=== PATIENT | female | born 1955 | race Caucasian/White ===

== ENCOUNTER 2023-09-22 12:29 | Inpatient (IN) ==
--- NOTE | 2023-09-22 13:11 | Emergency Department Note ---
Impression & Plan Localized swelling of both lower legs, Acute deep vein thrombosis (DVT) of femoral vein of left lower extremity, Hypomagnesemia ED Provider Note Name: BLANCA POOLE Age: 68 Sex: Female Arrives Via: Walk-In Informant: Patient and ED Provider: Pascual Mario MD Chief Complaint: Leg swelling Impression: As per impressions above Medical Decision Makin-year-old female arrives for evaluation of bilateral leg swelling. Patient recently with bilateral hip repair at [facility] having gotten out of rehab 2 weeks ago. Worsening swelling in legs to the point where she is now unable to ambulate. Swelling is getting the point where it is pulling at wound on the right hip. There is no evidence of open wound or infection at this time. She has a history of PE this ultrasound bilateral legs were obtained which do show a superficial femoral extending to the common femoral DVT on the left. This would not explain the swelling of both legs at this point though. Mild BNP elevation there may be an underlying congestive failure aspect. She was started on Lasix recently without any improvement though. Patient's mag is a bit on the low side which will be repleted. She has a moderate cough at times but no significant shortness of breath and chest x-ray is unremarkable without clear evidence of pulmonary edema. Will hold off on Lasix until evaluated by hospitalist. Hospitalist was consulted and we discussed the plan for them to further discuss whether IV heparin would be indicated, possible CT angiography of the chest, other approach. Patient and are comfortable with this plan. Triage/Nursing Notes reviewed by Me External Chart Review by me: 4 patient history I did review the note from oncology on August 16, 2023. Differential:DVT, musculoskeletal, infection, joint effusion, trauma, lymphedema, idiopathic, CHF, as well as other pathologies. Vital Signs: reviewed and remarkable for no significant abnormalities Interventions: magnesium 1 gm iv Labs:ED labs Reviewed by me and remarkable for hypomagnesemia Imagin view chest x-ray as per my interpretation no infiltrate effusion appreciated. Ultrasound bilateral lower legs as per radiologist reveals a left superficial to common femoral DVT Cardiac/Tele Monitoring: Cardiac Monitoring: An Order was placed for continuous cardiac monitoring. The monitor shows a rate of 74 with a normal sinus rhythm. Consults:Dr Moses Saul hospitalist Plan: Disposition:Hospitalization. Condition: Good History of Present Illness: 68-year-old female arrives for evaluation of leg swelling. Patient with bilateral hip replacement at [facility] in August. She was released from [facility] on September 06. Since then she has had rapid worsening of swelling in bilateral legs. No specific weight gain. Her legs have swollen to the point where she is no longer able to ambulate. When she was discharged from [facility] she was actually able to ambulate relatively well. With worsening swelling the sutures especially on the right hip have started to pull apart. Patient denies any chest pain, shortness of breath, fevers, chills, abdominal pain, nausea, vomiting. Denies any change in urine output until she had been started on Lasix few days ago. The Lasix have not improved the leg swelling. Denies any falls, trauma, injuries. Patient does have a history of PE about 12 years ago. She is no longer on any anticoagulation other than aspirin. Patient has a history of breast cancer status posttreatment and is on suppressive therapy. Past Medical History:See Below Home Medications:See Below Allergies:See Below Vitals:Blood Pressure: 127/69, Pulse 85, RR 20, T 36.8C, O2 98% on RA Physical Exam: GENERAL: Patient is tired/pale appearing and in minimal distress. RESPIRATORY: No dyspnea. Clear to auscultation and equal bilaterally. CARDIOVASCULAR: Regular rate and rhythm.No murmur appreciated. GASTROINTESTINAL: Abdomen soft, non-tender, no peritonitis. EXTREMITIES: Relatively tense pitting edema bilateral lower legs with mild erythema the medial thighs extending onto bilateral calves. Good distal pulses. The incision site on the left hip is dressed. The incision on the right is dressed with gauze which was removed. Wound is starting to separate despite olinda over the top third of the incision. No active drainage or significant surrounding erythema. NEUROLOGIC: Alert and oriented. No focal neurologic deficits appreciated SKIN: No rash, no jaundice, no diaphoresis. PSYCH: Appropriate GCS: 15 ED Course: Times/Reassessments: Patient stable mild cough periodically. Agreeable to hospitalization and further workup Pascual Mario MD Past Med/Surg History Problem List (Updated 08/24/20 @ 09:22 by Janice Morgan RN) Hypomagnesemia (Acute) Acute deep vein thrombosis (DVT) of femoral vein of left lower extremity (Acute) Localized swelling of both lower legs (Acute) Malignant neoplasm of upper-outer quadrant of right breast in female, estrogen receptor positive (Chronic 06/30/20) History of surgery Reexcision for positive margin of right breast;SLN biopsy also done 07/21/20 History of surgery Excisional right breast biopsy on 06/30/20 Medical History (Updated 09/22/23 @ 15:12 by Pascual Mario MD) TMJ (dislocation of temporomandibular joint) Arthritis Pulmonary emboli Hypertension Microscopic colitis Diabetes Migraines Dyslipidemia Surgical History (Updated 08/24/20 @ 09:22 by Janice Morgan, RN) History of cataract surgery Bilateral Hx of colonoscopy Family History (Updated 08/24/20 @ 09:26 by Janice Morgan, RN) Mother , 93yo Breast cancer Father , 69yo Lung cancer Dyslipidemia Hypertension Sister No problems noted. Sister Stroke Son No problems noted. Daughter No problems noted. Social History (Updated 08/24/20 @ 09:28 by Janice Morgan RN) Smoking Status: Never smoker Second Hand Exposure: No; Hx Alcohol Use: No Hx Substance Use: No Preferred Language: Serbian Communication Ability: Effective Visual Impairment: No Limitations Hearing Ability: Hard of Hearing Plastic Tubing Insulation Supervisor Required: No Beliefs That Will Affect Care: None marital status: Current Living Situation: Spouse current occupational status: retired current occupation: From [employer] Feels Safe at Home: Yes Diet: regular caffeine: No during the past year weight has: remained stable Assistive Devices: Cane Allergies Allergies Allergy/AdvReac Type Severity Reaction Status Date / Time dichloralphenazone AdvReac RASH Verified 08/16/23 13:29 isometheptene AdvReac RASH Verified 08/16/23 13:29 Home Meds Home Medications Medication Instructions Recorded Confirmed AMITRIPTYLINE HCL (ELAVIL) 75 mg PO HS #0 tabs 01/05/12 08/16/23 BENAZEPRIL HCL (LOTENSIN) 40 mg PO DAILY #0 tabs 01/05/12 08/16/23 CYCLOBENZAPRINE HCL (FLEXERIL) 10 mg PO TID PRN #0 tabs 01/05/12 08/16/23 NADOLOL (CORGARD) 20 mg PO DAILY #0 tabs 01/05/12 08/16/23 Ocuvite Preservision 1 tab PO BID #0 tabs 01/05/12 08/16/23 SUMATRIPTAN SUCCINATE (IMITREX) 100 mg PO PRN #0 tabs 01/05/12 08/16/23 Triamcinolone Acet 0.1% 1 applic topical BID PRN Rash ##0 01/05/12 08/16/23 (Aristocort 0.1%) ATORVASTATIN (LIPITOR) 80 mg PO DAILY #0 tabs 10/31/12 08/16/23 CHOLECALCIFEROL (Vitamin D) 1,000 inter.unit PO BID #0 tabs 10/31/12 08/16/23 RIBOFLAVIN (VITAMIN B-2) 200 mg PO DAILY ##0 10/31/12 08/16/23 METFORMIN HCL (GLUCOPHAGE) 1,000 mg PO DAILY #0 tabs 08/24/20 08/16/23 calcium carbonate 600 mg-vitamin 1 tab PO DAILY 08/24/20 08/16/23 D3 10 mcg (400 unit) tablet (Calcium with Vitamin D) indapamide 1.25 mg tablet 1.25 mg PO QAM 08/24/20 08/16/23 mecobalamin (vitamin B12) 1,000 1,000 mcg sublingual DAILY 08/24/20 08/16/23 mcg disintegrating tablet,sublingual letrozole 2.5 mg tablet 2.5 mg PO DAILY 02/11/21 08/16/23 aspirin 81 mg tablet,delayed 81 mg PO DAILY 08/16/23 08/16/23 release tramadol 50 mg tablet 50 mg PO BID PRN 08/16/23 08/16/23 Results & Data (ED) Vital Signs Vital Signs - 24 hr 09/22/23 12:40 09/22/23 12:58 Temperature 36.8 C Temperature Source Skin Pulse Rate 83 85 Respiratory Rate 20 Respiratory Effort / Characteristics Non-Labored Spontaneous Respiratory Depth Normal Respiratory Pattern Regular Blood Pressure 127/69 Blood Pressure Mean 88 Pulse Oximetry 98 Oxygen Delivery Method Room Air Sepsis Recent Fever Within 48 Hours No Sepsis New/Unexplained Change in Mental Status N/A Sepsis Action Taken by Nursing No Action Required Laboratory Data 09/22/23 12:57 09/22/23 13:16 Lab Results 09/22/23 09/22/23 Range/Units 12:57 13:16 WBC 10.77 (4.8-10.8) K/ul RBC 3.47 L (4.20-5.40) M/uL Hgb 9.8 L (12.0-16.0) g/dl Hct 32.5 L (37.0-47.0) % MCV 93.7 (80.0-100.0) fL MCH 28.2 (25.0-34.0) pg MCHC 30.2 L (32.0-36.0) g/dL RDW Std Deviation 56.5 H (36.4-46.3) fL RDW Coeff of Chely 17.0 H (11.5-14.5) % Plt Count 487 H (130-400) K/uL MPV 9.4 (9.4-12.4) fL Immature Gran % (Auto) 0.6 % Neut % (Auto) 67.6 % Lymph % (Auto) 18.9 % Gates % (Auto) 9.4 % Eos % (Auto) 3.2 % Baso % (Auto) 0.3 % Neut # (Auto) 7.28 H (1.40-6.50) K/uL Lymph # (Auto) 2.04 (1.20-3.40) K/uL Gates # (Auto) 1.01 H (0.11-0.59) K/uL Eos # (Auto) 0.35 (0.00-0.50) K/uL Baso # (Auto) 0.03 (0.00-0.20) K/uL Immature Gran # (Auto) 0.06 (0.01-0.20) K/uL Sodium 138 (136-145) mmol/L Potassium 3.9 (3.5-5.1) mmol/L Chloride 105 (98-107) mmol/L Carbon Dioxide 26 (21-32) mmol/L Anion Gap 7 (3-11) BUN 23 (6-23) mg/dl Creatinine 1.04 (0.6-1.2) mg/dl Est Cr Clr Drug Dosing 50.6 ml/min Est GFR ( Amer) 63.5 ml/min Est GFR (Non-Af Amer) 54.8 ml/min BUN/Creatinine Ratio 22.1 H (10-20) Glucose 74 (70-99(Fasting)) mg/dl Calcium 8.7 (8.6-10.3) mg/dl Magnesium 1.4 L (1.7-2.4) mg/dl Total Bilirubin 0.5 (0.2-1.0) mg/dl Direct Bilirubin 0.1 (0-0.2) mg/dl AST 21 (13-39) U/L ALT 14 (7-52) U/L Alkaline Phosphatase 186 H (34-104) U/L Troponin I High Sens 3.4 (0-14) pg/ml B-Natriuretic Peptide 235 H (0-100) pg/ml Total Protein 7.1 (6.0-8.3) gm/dl Albumin 2.9 L (3.4-5.0) gm/dl Administered Medications Magnesium Sulfate/Dextrose (Magnesium Sulfate / D5w) 1 gm in 100 mls @ 100 mls/hr IV NOW STA Stop: 09/22/23 15:34 Last Admin: 09/22/23 14:47 Dose: 100 mls/hr Documented By: LUIS Imaging Data Radiologist's Impression: Venous Doppler Study 09/22/23 13:06 ULTRASOUND BILATERAL LOWER EXTREMITY VENOUS CLINICAL HISTORY: Lower extremity edema COMPARISON STUDY: Left lower extremity venous ultrasound dated 10/23/2005 TECHNIQUE: Real-time, grayscale, and color Doppler sonography of the deep veins of the right and left lower extremity was performed from the inguinal crease to the calf. Compression and augmentation were utilized. FINDINGS: Right lower extremity: There is no sonographic evidence of deep venous thrombosis in the right lower extremity. The common femoral, superficial femoral, and popliteal veins are patent and normally compressible. The greater saphenous vein and the profunda femoris vein at the junction with the common femoral vein are clear. The visualized calf veins are patent. Soft tissue edema is present in the right calf. Left lower extremity: There is occlusive deep superficial venous thrombus in the greater saphenous vein at the junction of the common femoral vein. This protrudes into the common femoral vein as deep venous thrombosis. The superficial femoral and popliteal veins are patent and normally compressible. The profunda femoris vein at the junction with the common femoral vein is clear. The visualized calf veins are patent. Soft tissue edema is present in the left calf. IMPRESSION: 1. There is occlusive superficial venous thrombus within the left greater saphenous vein at the junction with the common femoral vein. This extends into the common femoral vein as deep venous thrombosis. 2. No additional foci of deep venous thrombosis are seen in either leg. ACT 112: Negative or not required by law. Electronically signed by: Prosper Taylor M.D. 09/22/2023 2:25 PM Chest X-Ray 09/22/23 13:07 SINGLE VIEW CHEST CLINICAL HISTORY: Fluid overload FINDINGS: An AP, portable, upright chest radiograph is correlated with chest CT dated 01/05/2012. There is evidence of previous cardiac valve surgery. The cardiomediastinal silhouette is unremarkable noting atherosclerotic calcification of the thoracic aorta. The pulmonary vasculature is noncongested. Chronic interstitial thickening is similar to previous. There is bibasilar scarring/atelectasis. No airspace consolidation or pleural effusion is identified. No pneumothorax is seen. The skeletal structures are osteopenic. The bony thorax is grossly intact. Mild degenerative change is noted in the shoulders and spine. IMPRESSION: No active disease in the chest. ACT 112: Negative or not required by law. Electronically signed by: Prosper Taylor M.D. 09/22/2023 1:58 PM Discharge Plan Visit Data Chief Complaint: Swelling/Edema to Extremity Stated Complaint: SEVERE EDEMA, COUGH ED Provider: Pascual Mario Discharge Problem: Localized swelling of both lower legs, Acute deep vein thrombosis (DVT) of femoral vein of left lower extremity, Hypomagnesemia Forms Stand Alone Forms: [facility] [employer] Prescriptions Prescriptions: No Action indapamide 1.25 mg tablet 1.25 mg PO QAM mecobalamin (vitamin B12) 1,000 mcg tablet,disintegrating 1,000 mcg sublingual DAILY Rx Instructions: place tablet under tongue and allow to dissolve for at least30 secs before swallowing calcium carbonate-vitamin D3 [Calcium with Vitamin D] 600 mg(1,500mg) -400 unit tablet 1 tab PO DAILY letrozole 2.5 mg tablet 2.5 mg PO DAILY aspirin 81 mg tablet,delayed release (DR/EC) 81 mg PO DAILY tramadol 50 mg tablet 50 mg PO BID PRN AMITRIPTYLINE HCL (ELAVIL) 75 MG tablet 75 mg PO HS Qty: 0 BENAZEPRIL HCL (LOTENSIN) 40 MG tablet 40 mg PO DAILY Qty: 0 CYCLOBENZAPRINE HCL (FLEXERIL) 10 MG tablet 10 mg PO TID PRN Qty: 0 Patient Comments: PRN NADOLOL (CORGARD) 20 MG tablet 20 mg PO DAILY Qty: 0 Ocuvite Preservision 1 TAB tablet 1 tab PO BID Qty: 0 SUMATRIPTAN SUCCINATE (IMITREX) 100 MG tablet 100 mg PO PRN Qty: 0 Triamcinolone Acet 0.1% (Aristocort 0.1%) cream 1 applic Topical BID PRN (Reason: Rash) Qty: 0 ATORVASTATIN (LIPITOR) 80 MG tablet 80 mg PO DAILY Qty: 0 CHOLECALCIFEROL (Vitamin D) 1,000 INTER.UNIT tablet 1,000 inter.unit PO BID Qty: 0 RIBOFLAVIN (VITAMIN B-2) 100 MG tablet 200 mg PO DAILY Qty: 0 METFORMIN HCL (GLUCOPHAGE) 500 MG tablet 1,000 mg PO DAILY Qty: 0 Referrals Referrals: Deon Dougherty MD [Primary Care Provider] -
--- OUTSIDE RECORDS SUMMARY | 2023-09-22 13:21 | External Medical Summary | Summary of Care ---
Author Name Unknown Organization [facility] Address [address] [place] [address] Phone [phone] Care Team Providers Care Learning Center Instructor Name Role Phone Farhat MEEHAN MD, Deon Cerna Primary Care Provider [phone] Reason for Visit * Reason Comments Outpatient Testing Encounter Details Date Type Department Care Team (Late st Contact Info) Description 09/17/2023 4:20 PM EDT Laboratory Laboratory [facility] [address] [place] [id number] [facility] [address] [facility] [place] [address] Shock (HCC); Bilateral lower extremity edema; Acute cough Allergies Active Allergy Reactions Criticality Noted Date Comments Dichloralphenazone 08/15/2022 Other Reaction(s): RASH Isometheptene 08/15/2022 Other Reaction(s): RASH Midrin 07/21/1999 Red and ictchy in the face documented as of this encounter (statuses as of 09/17/2023) Medications Medication Sig Dispensed Refills Start Date End Date Status OCUVITE-LUTEIN PO CAPS Take by mouth. Active RIBOFLAVIN (VITAMIN B-2) 100 MG Tablet Take 2 Tablets by mouth in the morning and 2 Tablets before bedtime. Active triamcinolone acetonide (ARISTOCORT) 0.1 % creamIndications: Other psoriasis APPLY TWICE DAILY DIRECTED 30 g 5 07/02/2018 Active Additional Information Patient not taking.Reported on 09/10/2023 Letrozole 2.5 MG Oral Tablet (Femara)Indicatio ns:Breast carcinoma, female, right (HCC) Take 1 Tablet by mouth in the morning. 90 Tablet 3 09/25/2022 Active Amitriptyline HCl 75 MG Oral Tablet (Elavil) TAKE ONE TABLET BY MOUTH AT BEDTIME 90 Tablet 1 04/16/2023 04/15/2024 Active Amoxicillin 500 MG Oral Capsule (Amoxil) Take 4 capsules 1 hour prior to any dental work 4 Capsule 4 06/11/2023 Active Calmoseptine 0.44-20.6 % External Ointment (Menthol-Zinc Oxide) Apply topically to affected area every 6 hours as needed for Wound Care. Apply to pressure sore on buttock. 113 g 5 07/02/2023 Active Cyclobenzaprine HCl 10 MG Oral Tablet (Flexeril)Indicat ions:Migraine variant TAKE ONE TABLET BY MOUTH THREE TIMES A DAY -- IN THE MORNING , NOON, AND AT BEDTIME 270 Tablet 1 07/06/2023 07/05/2024 Active Atorvastatin Calcium 80 MG Oral Tablet (Lipitor)Indicati ons:Dyslipidemia, goal to be determined Take 1 Tablet by mouth at bedtime. 90 Tablet 3 07/09/2023 Active Nadolol 20 MG Oral Tablet (Corgard)Indicati ons:Migraine variant Take 1 Tablet by mouth at bedtime. 90 Tablet 3 07/09/2023 Active Diclofenac Sodium 1 % External Gel (Voltaren) Apply topically to affected area 4 times a day. Apply to areas outside both hips/troch bursitis 350 g 6 08/08/2023 Active Additional Information Patient not taking.Reported on 09/14/2023 oxyCODONE HCl 5 MG Oral Tablet (Oxy IR) Take 1 Tablet by mouth every 4 hours as needed for Pain, Moderate or Pain, Severe. 30 Tablet 08/17/2023 Active Acetaminophen 500 MG Oral Tablet (Tylenol) Take 2 Tablets by mouth every 8 hours as needed for Pain, Mild, Pain, Moderate or Pain, Severe. DO NOT EXCEED 6 TABS IN 24 HOURS. 60 Tablet 1 08/17/2023 Active Senna 8.6 MG Oral Capsule Take 1 Capsule by mouth in the morning. While taking narcotics. 30 Capsule 08/17/2023 Active Doxycycline Hyclate 100 MG Oral Capsule Take 1 Capsule by mouth in the morning and 1 Capsule before bedtime. 84 Capsule 08/17/2023 Active Aspirin 81 MG Oral Tablet Delayed Release Take 1 Tablet by mouth in the morning and 1 Tablet before bedtime. 168 Tablet 08/17/2023 Active metFORMIN HCl ER (MOD) 1000 MG Oral Tablet Extended Release 24 HourIndications:A bnormal blood chemistry Take 1 Tablet by mouth 2 times a day with morning and evening meals. Take with food 60 Tablet 11 08/26/2023 Active Vitamin B-12 1000 MCG Oral Tablet (Cyanocobalamin) Take 1 Tablet by mouth in the morning. 30 Tablet 2 08/26/2023 Active Famotidine 20 MG Oral Tablet (Pepcid) Take 1 Tablet by mouth in the morning. 30 Tablet 2 08/26/2023 Active Fluconazole 100 MG Oral Tablet (Diflucan) Take 1 Tablet by mouth in the morning for 21 days. two tablets on first day, then one tablet once a day for 3 weeks.. 22 Tablet 09/14/2023 10/05/2023 Active Miconazole Nitrate 2 % External Cream (Monistat Derm) Apply to Right groin(do not place on surgical wound) daily after cleansing with soap and water 28.35 g 3 09/14/2023 Active documented as of this encounter (statuses as of 09/17/2023) Active Problems Problem Noted Date Diagnosed Date Status post bilateral hip replacements Degenerative joint disease (DJD) of hip 08/17/19 Migraine variant 06/14/2023 Atherosclerosis of [place] co ronary artery without angina pectoris 06/14/2023 Atrioventricular (AV) dissociation 06/06/2023 Conduction disorder of the heart 06/06/2023 RBBB (right bundle branch block) 06/06/2023 S/P TAVR (transcatheter aortic valve replacement ) 06/05/2023 History of breast cancer 11/08/2022 Type 2 diabetes mellitus with diabetic polyneuro lesley 04/15/2021 Hypertensive kidney disease with stage 3a chronic kidney disease 10/13/2020 Diabetes mellitus without complication Other psoriasis 04/14/2020 Elevated homocysteine 07/24/2018 History of pulmonary embolism 01/17/2016 Deviated nasal septum 07/26/2011 Chronic cough 10/18/2009 Overview: chronic - since 10/2008 ALLERGIC RHINITIS - MIXED TYPE 10/18/2009 Overview: positive grass pollen Obesity, morbid (more than 1 00 lbs over ideal weight or BMI > 40) 06/08/2009 Overview: Per Obesity Taxonomy ICD-10 update of inactive term Dyslipidemia, goal LDL below 130 02/18/2009 Overview: Per Lipid Taxonomy. ADVANCE DIRECTIVE INFORMATION 09/02/2004 Overview: No, Advance Directive brochure given to patient at prior appointment. HTN, goal below 140/90 12/04/2001 documented as of this encounter (statuses as of 09/17/2023) Resolved Problems Problem Noted Date Diagnosed Date Resolved Date Hypotension due to hypovolemia 08/18/2023 08/24/2023 Acute blood loss anemia 08/17/202308/10 Shock 08/17/2023 08/24/2023 Metabolic acidosis 08/17/2023 Primary osteoarthritis of both hips 08/08/2023 08/25/2023 Migraine variant 04/15/2021 05/11/2023 Migraine without aura, intractable 10/13/2020 10/13/2020 Chronic kidney disease, stage 3a 04/19/2020 08/25/2023 Overview: Per CKD protocol Homocystinuria 04/14/2020 01/17/2023 Prediabetes 08/19/2018 10/13/2020 Overview: Per Prediabetes protocol Severe aortic stenosis 08/08/201706/06 Pulmonary embolism 01/07/2012 6 Recurrent epistaxis 07/26/2011 10/28/19 23 Snoring 07/26/2011 01/17/2017 Overview: ICD-10 update of inactive term Recurrent sinusitis 07/26/2011 01/18/20 17 Hyperplastic sinusitis 07/26/201101/17 Gastroesophageal reflux disease 07/25/2011 10/13/2020 OBESITY, UNSPECIFIED 10/21/2005 010 Overview: Per Obesity Taxonomy Mixed dyslipidemia 05/28/2000 9 Overview: Per Lipid Taxonomy. UNSPECIFIED GASTRITIS AND GA STRODUODENITIS WITHOUT MENTION OF HEMORRHAGE 01/17/2017 documented as of this encounter (statuses as of 09/17/2023) Immunizations Name Administration Dates Next Due COVID-19 mRNA, LNP-s, No Pre serve, 2-Dose Series (Pfizer) 01/25/2021,2020,05/25/2020 COVID-19, MRNA-LNP, 23-24, P F, 30 MCG/0.3 mL, 12 YRS AND ABOVE, IM (PFIZER-Comirnaty) 12/21/2022 Pneumococcal Conjugate Vacci ne, 20-valent (Cowdweu13) 10/13/2021 Pneumococcal Polysaccharide PPV23 (Pneumovax) 04/14/2020 RSV Vac., Bivalent, Perfusio n F, Pf,0.5 Ml (Abrysvo) 05/11/2023 Seasonal Influenza, PF, 6 M & above, IM , (FluLaval or Fluzone) 01/24/2019,01/17/2018,01/17/2017 Seasonal Influenza, Quadriva lent Hd (Fluzone Hd) 12/21/2022,02/28/2022,03/07/2021 Seasonal Influenza, Quadriva lent Hd, 65+ Yrs 12/18/2019 Seasonal Influenza, Quadriva lent, No Preserve, IM 01/14/2015 Seasonal Influenza, Split, I IV3, With Preserve, Inj 12/30/2013,12/30/2012,01/01/2012,05/01,01/21/2010,05/17/2009 TD, Preservative Free 01/17/2017 TDAP, Age 7 and older, IM (Adacel) 11/16/2006 Varicella Zoster Vaccine (Adult) 07/20/2015 Zoster Vaccine Recombinant (Shingrix) 10/22/2017 ,07/17/2017 documented as of this encounter Social History Tobacco Use Types Packs/Day Years Used Date Smoking Tobacco: Never Smokeless Tobacco: Never Comments:no passive smoke Alcohol Use Standard Drinks/Week Comments No 0 (1 standard drink = 0.6 oz pur e alcohol) PHQ-2 Answer Date Recorded PHQ Adult Total Score 0 06/08/2023 Hunger Vital Sign Answer Date Recorded Within the past 12 months, y ou worried that your food would run out before you got the money to buy more. Never true 06/26/19 24 Within the past 12 months, t he food you bought just didn't last and you didn't have money to get more. Never true 06/26/2023 Childcare Answer Date Recorded Do you feel overwhelmed with taking care of a child, family member or friend? No 06/26/2023 Does your family need help f inding childcare? (Household - for ages 0-17 years) Not on file 06/26/2023 Clothing Answer Date Recorded Have you been unable to get clothing when it was really needed? No 06/26/2023 Is your family able to get c lothes or diapers when needed? (Household - for ages 0-17 years) Not on file 06/26/2023 Personal Safety Answer Date Recorded Do you feel unsafe or have concerns for your saf ety? No 08/17/2023 Do you have concerns for you r family's safety? (Household - for ages 0-17 years) Not on file 08/17/2023 Utilities Answer Date Recorded Do you have trouble paying y our heating, water, or electric bill? No 08/17/2023 Is your family able to pay t he heat, water, or electric bill? (Household - for ages 0-17 years) Not on file 08/17/2023 Does your family have access to good internet? (Household - for ages 0-17 years) Not on file 08/17/2023 Employment Status Answer Date Recorded Are you unemployed or without regular income? No 06/26/2023 Does the household have a re gular source of income? (Household - for ages 0-17 years) Not on file 06/26/2023 Social Connections Answer Date Recorded How often do you feel lonely or isolated from th ose around you? Never 06/26/2023 Financial Resource Strain Answer Date R ecorded Do you have any trouble payi ng for your medications, or do you think you might in the future? No 06/26/2023 Does your family have troubl e paying for medicine? (Household - for ages 0-17 years) Not on file 06/26/2023 Transportation Needs Answer Date Record ed READ ONLY Do you have troubl e getting a ride to medical visits or work? Never True 08/17/2023 Does your family have a hard time getting a ride to doctors visits? (Household - for ages 0-17 years) Not on file 08/17/2023 Has lack of transportation k ept you from medical appointments, meetings, work, or from getting things needed for daily living? Check all that apply. (Adult - for ages 18 years and over) Not on file 08/17/2023 Do you (or your family) have trouble finding or paying for a ride (transportation)? (Household - for ages 0-17 years) Not on file 08/17/2023 Housing Stability Answer Date Recorded Do you currently live in a s helter or have no steady place to sleep at night? No 08/17/2023 READ ONLY Do you think you a re at risk of becoming homeless? No 08/17/2023 Does your family worry about paying for your home or becoming homeless? (Household - for ages 0-17 years) Not on file 0 08/17/2023 Are you homeless or worried that you might be in the future? (Adult - for ages 18 years and over) Not on file Are you (or your family) nakia eless or worried that you might be in the future? (Household - for ages 0-17 years) Not on file Food Insecurity Answer Date Recorded Do you need food for this week? No 08/17/2023 Are you able to get enough f ood for your family? (Household - for ages 0-17 years) Not on file 08/17/2023 Does your family need food t his week? (Household - for ages 0-17 years) Not on file 08/17/2023 Do you always have enough fo od for your family? (Household - for ages 0-17 years) Not on file 08/17/2023 Sex and Gender Information Value Date Recorded Sex Assigned at Female 07/24/2018 9:10 AM EDT Gender Identity Female 07/24/2018 9:10 AM EDT Sexual Orientation Straight 07/24/2018 9: 10 AM EDT Job Start Date Occupation Industry Not on file Not on file Not on file documented as of this encounter Functional Status Functional Status Response Date of Assess ment Are you deaf or do you have serious difficulty h earing? No 08/17/2023 Are you blind or do you have serious difficulty seeing, even when wearing glasses? No 08/17/2023 Do you have serious difficul ty walking or climbing stairs? (5 years old or older) Yes 08/17/2023 Do you have difficulty dress ing or bathing? (5 years old or older) Yes 08/17/2023 Because of a physical, menta l, or emotional condition, do you have difficulty doing errands alone such as visiting a doctor s office or shopping? (15 years old or older) Yes 08/17/19 Cognitive Status Response Date of Assessm ent Because of a physical, menta l, or emotional condition, do you have serious difficulty concentrating, remembering, or making decisions? (5 years old or older) No 08/17/2023 documented as of this encounter Plan of Treatment Upcoming Encounters Date Type Department Care Team (Late st Contact Info) Description 09/27/2023 8:30 AM EDT Home Visit Kg at [facility] [address] [address] Megan Mata RN [address] [address] 10/03/2023 12:00 PM EDT Office Visit Orthopaedics, [place] [address] [place] [address] Junior Chavez PA-C [address] [place] [address] 11/08/2023 9:00 AM EDT Home Visit Kg at [facility] [address] [address] Tre Penny PA-C [address] [address] 11/14/2023 9:00 AM EDT Office Visit Family Practice [facility] [address] [place] [address] Deon Dougherty III, MD [address] [place] [address] 12/18/2023 8:30 AM EDT Office Visit Cardiology, [facility] [address] [facility] [place] [address] [place], DO [address] [place] [address] 03/20/2024 2:00 PM EST Laboratory Laboratory [facility] [address] [place] [id number] [place], Lab [facility] [address] [facility] [place] [address] 03/27/2024 2:00 PM EST Office Visit Hematology/Oncology [facility] [place] [address] [facility] [place] [phone] Lizbeth Madison CRNP [address] [place], [place] [address] [address] Pending Results Name Type Priority Associated Diagnoses Date /Time BASIC METABOLIC PANEL Lab Routine Shock (HCC) 09/17/2023 4:21 PM EDT BNP, NT-PRO Lab Routine Bilateral lower extremity edema 09/17/2023 4:21 PM EDT CBC WITH WBC DIFFERENTIAL Lab Routine Acute cough 09/17/2023 4:21 PM EDT CBC Lab Routine Acute cough 09/17/2023 4:21 PM EDT DIFFERENTIAL, AUTOMATED Lab Routine Acute cough 09/17/2023 4:21 PM EDT Health Maintenance Due Date Last Done Comments Cologuard 06/16/1999 Fecal Occult Blood Test 06/16/1999 Sigmoidoscopy 06/16/1999 COVID-19 Vaccine ( season) 2023 12/21/2022, 01/25/2021, 2020, Additional history exists Diabetic Eye Exam 07/11/2023 07/10/2022, , 07/10/2022, Additional history exists Influenza Vaccine (FLU shot) (#1) 2023 12/21/2022, 02/28/2022, 03/07/2021, Additional history exists HbA1c 02/08/2024 08/08/2023, 0303/2023, 11/08/2022, Additional history exists GFR 03/12/2024 09/10/2023, 08/11, 08/27/2023, Additional history exists Mammogram 04/23/2024 04/23/2023, 04/12, 04/19/2022, Additional history exists Albumin/Creatinine Ratio 05/10/2024 024, 04/17/2022, 04/15/2021, Additional history exists Diabetic Foot Exam 05/10/2024 05/11/2023, 0 04/17/2022, 04/15/2021 Depression Screening 06/07/2024 06/08/2023 CKD PHOS USE SMARTSET 20893 08/25/202408/10, 08/25/2023, 08/24/2023, Additional history exists CKD HGB USE SMARTSET 17914 09/09/202409/09, 09/10/2023, 09/03/2023, Additional history exists Colonoscopy 02/03/2025 02/03/2015, 01/11, 12/14/2006 Colorectal Cancer Screening 02/03/2025 DTaP,Tdap,and Td Vaccines (3 - Td or Tdap) 01/17/2027 01/17/2017, 11/16/2006 DXA Scan 08/14/2029 08/14/2022, 07/2022, 08/17/2020 Zoster Vaccines Completed 10/22/2017, 0 10/2017, 07/20/2015 Pneumococcal Vaccine: 65+ Years Completed 10/13/2021, 04/14/2020 HPV (Gardasil) Vaccine Aged Out No lo nger eligible based on patient's age to complete this topic Hepatitis B Vaccine Aged Out No longe r eligible based on patient's age to complete this topic MENINGOCOCCAL (MENACTRA/MENVEO) Aged Out No longer eligible based on patient's age to complete this topic documented as of this encounter Medical Devices Implanted Type Area An Employee Sponsor Or Advocate And Device Identifier Shelf Expiration Date Model / Serial / Lot Valve Transcath Resilia 23mm - [id number] Implanted:Qty: 1 on 06/05/2023 by Mat Lucia MD at [facility] [employer] [id number] 11/12/2023 [id number] / / Screw Bone 6.5x30mm - [id number] Implanted:Qty: 1 on 08/17/2023 by Chito Cochran MD at OR [facility] Right: Hip ALEYDA : ORTHOPAEDICS 05/22/2028 [id number] / / [id number] Screw Low Profile [id number] - [id number] Implanted:Qty: 1 on 08/17/2023 by Chito Cochran MD at OR [facility] Right: Hip ALEYDA : ORTH[employer] 03/31/2028 [id number] / / [id number] Implant Stem Hip Colr High 2 - [id number] Implanted:Qty: 1 on 08/17/2023 by Chito Cochran MD at OR [facility] Right: Hip AELYDA : ORTH[employer] 03/20/2027 [id number] / / [id number] Hip Hd Ricardo Rdz Md D 36 25 - [id number] Implanted:Qty: 1 on 08/17/2023 by Chito Cochran MD at OR [facility] Right: Hip ALEYDA : ORTH[employer] 03/19/2028 [id number] / / [id number] Hip Shell Trident X3 10 36x50 - [id number] Implanted:Qty: 1 on 08/17/2023 by Chito Cochran MD at OR [facility] Left: Hip ALEYDA : ORTH[employer] 07/10/2028 [id number] / / [id number] Implant Hip Acetab Shell 52e - [id number] Implanted:Qty: 1 on 08/17/2023 by Chito Cochran MD at OR [facility] Left: Hip ALEYDA : ORTHOPA[employer] 07/07/2028 709-04-52E / / [id number] 6.5mm Low Profile Hex Screw 6 - [id number] Implanted:Qty: 1 on 08/17/2023 by Chito Cochran MD at OR [facility] Left: Hip ALEYDA : ORTHOPAEDICS 04/24/2028 [id number] / / [id number] Screw Low Profile 6.7lzc40hi - [id number] Implanted:Qty: 1 on 08/17/2023 by Chito Cochran MD at OR [facility] Left: Hip ALEYDA : ORTHOPAEDICS 04/16/2028 [id number] / / [id number] Implant Stem Hip Colr High 1 - [id number] Implanted:Qty: 1 on 08/17/2023 by Chito Cochran MD at OR [facility] Left: Hip ALEYDA : ORTHOPAEDICS 12/13/2027 [id number] / / [id number] Hip Hd Ricardo Rdz Md D 36 25 - [id number] Implanted:Qty: 1 on 08/17/2023 by Chito Cochran MD at OR [facility] Left: Hip ALEYDA : ORTHOPAEDICS 01/30/2028 [id number] / / [id number] Hip Shell Trident X3 10 36x50 - [id number] Implanted:Qty: 1 on 08/17/2023 by Chito Cochran MD at OR [facility] Right: Hip ALEYDA : ORTHOPAEDICS 05/03/2028 763-10-36E / / [id number] Implant Hip Acetab Shell 52e - [id number] Implanted:Qty: 1 on 08/17/2023 by Chito Cochran MD at OR [facility] Right: Hip ALEYDA : ORTHOPAEDICS 06/21/2028 709-04-52E / / [id number] documented as of this encounter Visit Diagnoses Diagnosis Shock (HCC) Shock, unspecified Bilateral lower extremity edema Edema Acute cough documented in this encounter Advance Directives * Full Code (Latest Code Status on File) Date Activated Date Inactivated Comments 08/17/2023 7:01 PM 08/26/2023 2:23 PM This order re flects the patients wishes and were consensually agreed upon. Question Answer Comments Discussion of Advance Direct verna occurred with: Not Discussed due to patient's condition * Full Code Date Activated Date Inactivated Comments 06/05/2023 8:29 AM 06/07/2023 6:32 PM This order r eflects the patients wishes and were consensually agreed upon. Question Answer Comments Discussion of Advance Directives occurred with: Patient * Full Code Date Activated Date Inactivated Comments 01/05/2012 10:55 PM 01/09/2012 6:07 PM This orde r reflects the patients wishes and were consensually agreed upon. Question Answer Comments Discussion of Advance Directives occurred with: Patient Does the patient have a Living Will? No Does the patient have Health Care Power of Attor ludmila? No Care Teams Learning Center Instructor Relationship Specialty Start Date End Date Deon Dougherty III, MD [address] [facility] [place] [address] PCP - General 10/25/1995 documented as of this encounter
--- OUTSIDE RECORDS SUMMARY | 2023-09-22 13:21 | External Medical Summary | Summary of Care ---
Author Name Unknown Organization [facility] Address [address] [place] [address] Phone [phone] Care Team Providers Care Cloth Cutting Machine Operator Name Role Phone Farhat MEEHAN MD, Deon Cerna Primary Care Provider [phone] Reason for Visit * Reason Onset Date Comments Home Health 09/19/2023 Encounter Details Date Type Department Care Team (Late st Contact Info) Description 09/19/2023 Telephone Family Practice [facility] [address] [place] [address] Deon Dougherty III, MD [address] [place] [address] Home Health Allergies Active Allergy Reactions Criticality Noted Date Comments Dichloralphenazone 08/15/2022 Other Reaction(s): RASH Isometheptene 08/15/2022 Other Reaction(s): RASH Midrin 07/21/1999 Red and ictchy in the face documented as of this encounter (statuses as of 09/20/2023) Medications Medication Sig Dispensed Refills Start Date [...] and water 28.35 g 3 09/14/2023 Active Furosemide 20 MG Oral Tablet (Lasix) Take 1 Tablet by mouth in the morning. For 5 days. 5 Tablet 09/20/2023 Active documented as of this encounter (statuses as of 09/20/2023) Active Problems Problem Noted Date Diagnosed Date Status post bilateral hip replacements 4 Degenerative joint disease (DJD) of hip 08/17/19 Migraine variant 06/14/2023 Atherosclerosis of alutiiq co ronary artery without angina pectoris 06/14/2023 [...] as of this encounter (statuses as of 09/20/2023) Resolved Problems Problem Noted Date Diagnosed Date [...] as of this encounter (statuses as of 09/20/2023) Immunizations Name Administration Dates Next Due COVID-19 mRNA, LNP-s, No Pre serve, 2-Dose Series (Aphria) 01/25/2021,2020,05/25/2020 COVID-19, MRNA-LNP, 23-24, P F, 30 MCG/0.3 mL, 12 YRS AND ABOVE, IM (PFIZER-Comirnaty) 12/21/2022 Pneumococcal Conjugate Vacci ne, 20-valent (Oosnima22) 10/13/2021 Pneumococcal Polysaccharide PPV23 (Pneumovax) 04/14/2020 RSV [...] No 08/17/2023 documented as of this encounter Miscellaneous Notes * Telephone Encounter - Berna Mack MD - 09/20/2023 7:43 AM EDT Looks like she had a BNP a few days ago that was quite elevated. Sounds like it is worsening from when I saw her in the office. At that time attributed mild swelling to postop changes. Can she make appointment to be seen? I am going to send her Lasix 20mg to take for 5 days. * Telephone Encounter - Abraham Christensen DO - 09/19/2023 3:12 PM EDT Orders signed for wheelchair and hospital bed. Please alert Home health nuring and see where they should go. Megan: it looks like you've seen Elsa. I'm not sure if I just go with these changes or if lasix is appropriate at this point. Looking for any other thoughts? * Telephone Encounter - Marta Mc LPN - 09/19/2023 11:19 AM EDT Concerns Shan PT, Calling from: [facility] Report/Concerns of: swelling from hips down. 2 plus pitting edema. Since coming home. Symptoms: edema- location bilateral legs and pitting plus 2 edema. No redness or warmth. Cough Vitals: T 97.3 P 81 RR 18 BP 126/72 SP O2 96 room air Blood sugar Does not check her blood sugars. Lung sounds crackling in mid to lower lobes. On 09/13 [facility] saw patient and reported lungs were clear. Weight 187 on September 16 with patients own scale. On day of surgery in [place], weighed 170 in the hospital August 16 Narrative: Shan PT calling from [facility]. Patient has had plus 2 edema of bilateral legs, from thehips down, since coming home. Patient had hip replacement on 08/17/23 in [place]. Had an appt. With Dr. Mack on 09/10/23 Gets dyspneic on exertion. Dyspneic with exertion is not new. Had this prior to surgery. Patient is elevating her legs. Asking for a hospital bed to help elevate the legs and toget in and out without assistance. Currently sleeping in chair. Asking for wheelchair due to legs being heavy and not as mobile as before surgery. Has a productive cough of green mucous. Started on 09/11/23 [facility] thought she might have allergies. GAHtold her to use claritin. Patient has been using claritin, cough drops and delsym cough syrup. Nonehave helped. PT and OT see the patient. They do no have [facility] nurses seeing her. Called the office. No answer. Message sent high priority to [facility]. Call back patient with any advice or orders at [phone] Please fax new orders to [facility] Home Health documented in this encounter Plan of Treatment Upcoming Encounters Date Type Department Care Team (Late st Contact Info) Description 09/27/2023 8:30 AM EDT [facility] [address] [facility] [place] [address] Megan Mata, RN [address] [place] [address] 10/03/2023 12:00 PM EDT Office Visit Orthopaedics, [place] [address] [place] [address] Junior Chavez PA-C [address] [place] [address] 11/08/2023 9:00 AM EDT [facility] [address] [facility] [place] [address] Tre Penny PA-C [address] [place] [address] 11/14/2023 9:00 AM EDT Office Visit Family Practice [facility] [address] [place] [address] Deon Dougherty III, MD [address] [facility] [place] [address] 12/18/2023 8:30 AM EDT Office Visit Cardiology, [facility] [address] [place] [address] Los Carrizales O, DO [address] [place] [address] 03/20/2024 2:00 PM EST Laboratory Laboratory [facility] [address] [place] [id number] [place] [facility] [address] [facility] [place] [address] 03/27/2024 2:00 PM EST Office Visit Hematology/Oncology [facility] [place] [address] [facility] [place] [address] Lizbeth Madison CRNP [address] [place] [address] Health Maintenance Due Date Last Done Comments Cologuard 06/16/1999 Fecal Occult Blood Test 06/16/1999 Sigmoidoscopy 06/16/1999 COVID-19 Vaccine ( season) 2023 12/21/2022, 01/25/2021, 2020, Additional history exists Diabetic Eye Exam 07/11/2023 07/10/2022, , 07/10/2022, Additional history exists Influenza Vaccine (FLU shot) (#1) 2023 12/21/2022, 02/28/2022, 03/07/2021, Additional history exists HbA1c 02/08/2024 08/08/2023, 03/0 03/2023, 11/08/2022, Additional history exists GFR 03/19/2024 09/17/2023, 07/0 03/2023, 09/03/2023, Additional history exists Mammogram 04/23/2024 04/23/2023, 04/12, 04/19/2022, Additional history exists Albumin/Creatinine Ratio 05/10/2024 024, 04/17/2022, 04/15/2021, Additional history exists Diabetic Foot Exam 05/10/2024 05/11/2023, 0 04/17/2022, 04/15/2021 Depression Screening 06/07/2024 06/08/2023 CKD PHOS USE SMARTSET 60620 08/25/202408/10, 08/25/2023, 08/24/2023, Additional history exists CKD HGB USE SMARTSET 86150 09/16/202409/16, 09/17/2023, 09/10/2023, Additional history exists Colonoscopy 02/03/2025 02/03/2015, 01/11, 12/14/2006 Colorectal Cancer Screening 02/03/2025 DTaP,Tdap,and Td Vaccines (3 - Td or Tdap) 01/17/2027 01/17/2017, 11/16/2006 DXA Scan 08/14/2029 08/14/2022, 07/2022, 08/17/2020 Zoster Vaccines Completed 10/22/2017, 10/2017, 07/20/2015 Pneumococcal Vaccine: 65+ Years Completed [...] this encounter Medical Devices Implanted Type Area Organ Pipe Finisher Device Identifier Shelf Expiration Date Model / Serial / Lot Valve Transcath Resilia 23mm - [id number] Implanted:Qty: 1 on 06/05/2023 by Mat Lucia MD at [facility] [employer] [id number] 11/12/2023 [id number] / / Screw Bone 6.5x30mm - [id number] Implanted:Qty: 1 on 08/17/2023 by Chito Cochran MD at OR [facility] Right: Hip ALEYDA : ORTHOPAEDICS 05/22/2028 [id number] / / HFF Screw Low Profile 6.0lsb16si - [id number] Implanted:Qty: 1 on 08/17/2023 by Chito Cochran MD at OR [facility] Right: Hip ALEYDA : ORTHOPAEDICS 03/31/2028 0148-8273 / / [id number] Implant Stem Hip Colr High 2 - [id number] Implanted:Qty: 1 on 08/17/2023 by Chito Cochran MD at OR [facility] Right: Hip ALEYDA : ORTHOPAEDICS 03/20/2027 [id number] / / [id number] Hip Steven Rdz Md D 36 25 - [id number] Implanted:Qty: 1 on 08/17/2023 by Chito Cochran MD at OR [facility] Right: Hip ALEYDA : ORTHOPAEDICS 03/19/2028 6570-0-436 / / [id number] Hip Shell Trident X3 10 36x50 - [id number] Implanted:Qty: 1 on 08/17/2023 by Chito Cochran MD at OR [facility] Left: Hip ALEYDA : ORTHOPAEDICS 07/10/2028 763-10-36E / / [id number] Implant Hip Acetab Shell 52e - [id number] Implanted:Qty: 1 on 08/17/2023 by Chito Cochran MD at OR [facility] Left: Hip ALEYDA : ORTHOPAEDICS 07/07/2028 709-04-52E / / [id number] 6.5mm Low Profile Hex Screw 6 - [id number] Implanted:Qty: 1 on 08/17/2023 by Chito Cochran MD at OR [facility] Left: Hip ALEYDA : ORTHOPAEDICS 04/24/2028 0840-2728 / / [id number] Screw Low Profile 6.0gtf73rm - [id number] Implanted:Qty: 1 on 08/17/2023 by Chito Cochran MD at OR [facility] Left: Hip ALEYDA : ORTHOPAEDICS 04/16/2028 3044-2803 / / [id number] Implant Stem Hip Colr High 1 - [id number] Implanted:Qty: 1 on 08/17/2023 by Chito Cochran MD at OR [facility] Left: Hip ALEYDA : ORTHOPAEDICS 12/13/2027 3806-3841 / / [id number] Hip Steven Rdz Md D 36 25 - [id number] Implanted:Qty: 1 on 08/17/2023 by Chito Cochran MD at OR [facility] Left: Hip ALEYDA : ORTHOPAEDICS 01/30/2028 6570-0-436 / / [id number] Hip Shell Trident X3 10 36x50 - [id number] Implanted:Qty: 1 on 08/17/2023 by Chito Cochran MD at OR [facility] Right: Hip ALEYDA : ORTHOPAEDICS 05/03/2028 763-10-36E / / [id number] Implant Hip Acetab Shell 52e - [id number] Implanted:Qty: 1 on 08/17/2023 by Chito Cochran MD at [facility] Right: Hip ALEYDA : ORTHOPAEDICS 06/21/2028 709-04-52E / / [id number] documented as of this encounter Visit Diagnoses Diagnosis Bilateral lower extremity edema- Primary Edema S/P bilateral hip replacements Hip joint replacement by other means Hypotension due to hypovolemia documented in this encounter Advance Directives * [...] Power of Attor ludmila? No Care Teams Cloth Cutting Machine Operator Relationship Specialty Start Date End Date Deon Dougherty III, MD [address] [place] [address] PCP - General 10/25/1995 documented as of this encounter
--- OUTSIDE RECORDS SUMMARY | 2023-09-22 13:21 | External Medical Summary | Summary of Care ---
Author Name Unknown Organization [facility] Address [address] [place] [address] Phone [phone] Care Team Providers Care It Recruiter Name Role Phone Farhat MEEHAN MD, Deon Cerna Primary Care Provider [phone] Reason for Visit * Reason Onset Date Comments Home Health 09/19/2023 Encounter Details Date Type Department Care Team (Late st Contact Info) Description 09/19/2023 Telephone Family Practice [facility] [address] [place] [address] Deon Dougherty III, MD [address] [place] [address] Home Health Allergies Active Allergy Reactions Criticality [...] hip 08/17/19 Migraine variant 06/14/2023 Atherosclerosis of ton[place] co ronary artery without angina pectoris 06/14/2023 [...] mRNA, LNP-s, No Pre serve, 2-Dose Series (Hakia) 01/25/2021,2020,05/25/2020 COVID-19, MRNA-LNP, 23-24, P F, 30 MCG/0.3 mL, 12 YRS AND ABOVE, IM (PFIZER-Comirnaty) 12/21/2022 Pneumococcal Conjugate Vacci ne, 20-valent (Olhpuav36) 10/13/2021 Pneumococcal Polysaccharide PPV23 (Pneumovax) 04/14/2020 RSV [...] encounter Miscellaneous Notes * Telephone Encounter - Karol Samson LPN - 09/20/2023 5:39 PM EDT Patient called and made aware. Order faxed; confirmation received. Scheduling: please call to make office visit per provider * Telephone Encounter - Berna Mack MD [...] any other thoughts? * Telephone Encounter - McMarta calhoun LPN - 09/19/2023 11:19 AM EDT Concerns Shan PT, Calling from: [facility] Report/Concerns of: swelling from hips down. 2 plus pitting edema. Since coming home. Symptoms: edema- location bilateral legs and pitting plus 2 edema. No redness or warmth. Cough Vitals: T 97.3 P 81 RR 18 BP 126/72 SP O2 96 room air Blood sugar Does not check her blood sugars. Lung sounds crackling in mid to lower lobes. On 09/13 [facility] saw patient and reported lungs were clear. Weight 187 on September 16 with patients own scale. On day of surgery in [place], weighed 170 in the hospital August 16 Narrative: FELISHA Torrez calling from [facility]. Patient has had plus 2 edema of bilateral legs, from thehips down, since coming home. Patient had hip replacement on 08/17/23 in [place]. Had an appt. With Dr. Mack on [...] cough of green mucous. Started on 09/11/23 [facility] thought she might have allergies. GAHtold her to use claritin. Patient has been using claritin, cough drops and delsym cough syrup. Nonehave helped. PT and OT see the patient. They do no have [facility] nurses seeing her. Called the office. No answer. Message sent high priority to [facility]. Call back patient with any advice or orders at [phone] Please fax new orders to [facility] Home Health documented in this encounter Plan of Treatment Upcoming Encounters Date Type Department Care Team (Late st Contact Info) Description 09/27/2023 8:30 AM EDT [facility] Visit [facility], [facility] [address] [place] [address] Megan Mata RN [address] [place] [address] 10/03/2023 12:00 PM EDT Office Visit Orthopaedics, [place] [address] [place] [address] Junior Chavez PA-C [address] [place] [address] 11/08/2023 9:00 AM EDT [facility] Visit [facility] [place], [facility] [address] [place] [address] Tre Penny PA-C [address] [place] [address] 11/14/2023 9:00 AM EDT Office Visit Family Practice [facility] [address] [facility] [place], [place] [address] Deon Dougherty III, MD [address] [facility] [place] [address] 12/18/2023 8:30 AM EDT Office Visit Cardiology, [facility] [address] [place] [address] Los Carrizales DO [address] [place] [address] 03/20/2024 2:00 PM EST Laboratory Laboratory [facility] [place] [address] [place] [address] [place], [facility] [address] [facility] [place] [address] 03/27/2024 2:00 PM EST Office Visit Hematology/Oncology [facility] [place] [address] [place] [address] Lizbeth Madison, WILLIAM [address] [facility] [place] [address] Health Maintenance Due Date Last Done Comments [...] Screening 06/07/2024 06/08/2023 CKD PHOS USE SMARTSET 90664 08/25/202408/10, 08/25/2023, 08/24/2023, Additional history exists CKD HGB USE SMARTSET 59466 09/16/202409/16, 09/17/2023, 09/10/2023, Additional history exists Colonoscopy [...] this encounter Medical Devices Implanted Type Area Photography Teacher Device Identifier Shelf Expiration Date Model / Serial / Lot Valve Transcath Resilia 23mm - [id number] Implanted:Qty: 1 on 06/05/2023 by Mat Lucia MD at [facility] [employer] [id number] 11/12/2023 [id number] / / Screw Bone 6.5x30mm - [id number] Implanted:Qty: 1 on 08/17/2023 by Chito Cochran MD at OR [facility] Right: Hip ALEYDA : ORTHOPAEDICS 05/22/2028 4435-2209 / / HFF Screw Low Profile 6.2iwt87qw - [id number] Implanted:Qty: 1 on 08/17/2023 by Chito Cochran MD at OR [facility] Right: Hip ALEYDA : ORTHOPAEDICS 03/31/2028 5401-5511 / / [id number] Implant Stem Hip Colr High 2 - [id number] Implanted:Qty: 1 on 08/17/2023 by Chito Cochran MD at OR [facility] Right: Hip ALEYDA : ORTHOPAEDICS 03/20/2027 6773-7141 / / [id number] Hip Steven Chavira 36 25 - [id number] Implanted:Qty: 1 on 08/17/2023 by Chito Cochran MD at OR [facility] Right: Hip ALEYDA : ORTHOPAEDICS 03/19/2028 6570-0-436 / / [id number] Hip Shell Trident X3 10 36x50 - [id number] Implanted:Qty: 1 on 08/17/2023 by Chito Cochran MD at OR [facility] Left: Hip ALEYDA : ORTHOPAEDICS 07/10/2028 763-10-36E / / [id number] Implant Hip Acetab Shell 52e - [id number] Implanted:Qty: 1 on 08/17/2023 by Chito Cochran MD at OR [facility] Left: Hip ALEYDA : ORTHOPAEDICS 07/07/2028 709-04-52E / / [id number] 6.5mm Low Profile Hex Screw 6 - [id number] Implanted:Qty: 1 on 08/17/2023 by Chito Cochran MD at OR [facility] Left: Hip ALEYDA : ORTHOPAEDICS 04/24/2028 8596-3679 / / [id number] Screw Low Profile 6.2ajd26rc - [id number] Implanted:Qty: 1 on 08/17/2023 by Chito Cochran MD at OR [facility] Left: Hip ALEYDA : ORTHOPAEDICS 04/16/2028 6897-3480 / / [id number] Implant Stem Hip Colr High 1 - [id number] Implanted:Qty: 1 on 08/17/2023 by Chito Cochran MD at OR [facility] Left: Hip ALEYDA : ORTHOPAEDICS 12/13/2027 2863-4885 / / [id number] Hip Steven Chavira 36 25 - [id number] Implanted:Qty: 1 on 08/17/2023 by Chito Cochran MD at OR [facility] Left: Hip ALEYDA : ORTHOPAEDICS 01/30/2028 6570-0-436 / / [id number] Hip Shell Trident X3 10 36x50 - [id number] Implanted:Qty: 1 on 08/17/2023 by Chito Cochran MD at OR [facility] Right: Hip ALEYDA : ORTHOPAEDICS 05/03/2028 763-10-36E / / [id number] Implant Hip Acetab Shell 52e - [id number] Implanted:Qty: 1 on 08/17/2023 by Chito Cochran MD at OR [facility] Right: Hip ALEYDA : ORTHOPAEDICS 06/21/2028 709-04-52E / / [id number] documented as of this encounter Visit Diagnoses [...] Power of Attor ludmila? No Care Teams It Recruiter Relationship Specialty Start Date End Date Deon Dougherty III, MD [address] [place] [address] PCP - General 10/25/1995 documented as of this encounter
--- OUTSIDE RECORDS SUMMARY | 2023-09-22 13:21 | External Medical Summary ---
Author Name Unknown Address Unknown Organization K01:[facility] [place] [address] [place] [address] Laboratory Report Ordering Provider Test Date Status ANNUM,AMIRAHAT 09/17/2023 16:21:04 Final Discharge Order Observation Date Value Abnormality Reference (Units ) Status BUN 09/17/2023 16:21:04 22 Above high normal 6-20 (mg/dL) Final Creatinine 09/17/2023 16:21:04 0.9 0.5-1.0 (mg/dL) Final Glomerular filtration rate/1.73 sq M.predicted [Volume Rate/Area] in Serum, Plasma or Blood by Creatinine-based formula (CKD-EPI) 09/17/2023 16:21:04 67 >=60 (mL/min) Final eGFR is calculated based on the CKD-EPI 2020 equation Sodium 09/17/2023 16:21:04 141 135-146 (m mol/L) Final Potassium 09/17/2023 16:21:04 4.3 3.5-5.1 (m mol/L) Final Cl 09/17/2023 16:21:04 109 Above high normal 98 -107 (mmol/L) Final CO2 09/17/2023 16:21:04 22 22-32 (mmo l/L) Final Anion gap 09/17/2023 16:21:04 10 7-15 (mmol /L) Final Glucose 09/17/2023 16:21:04 85 70-120 (mg /dL) Final Calcium 09/17/2023 16:21:04 8.6 8.4-10.2 ( mg/dL) Final Performing Location [facility] [address] [place] [address]
--- OUTSIDE RECORDS SUMMARY | 2023-09-22 13:21 | External Medical Summary | Summary of Care ---
Author Name Unknown Organization [facility] Address [address] [place] [address] Phone [phone] Care Team Providers Care Family And Divorce Legal Assistant Name Role Phone Farhat MEEHAN MD, Deon Cerna Primary Care Provider [phone] Reason for Visit * Reason Onset Date Comments Advice 09/17/2023 Encounter Details Date Type Department Care Team (Late st Contact Info) Description 09/17/2023 Telephone Family Practice [facility] [address] [place] [address] Deon Dougherty III, MD [address] [place] [address] Advice Allergies Active Allergy Reactions Criticality Noted Date [...] Degenerative joint disease (DJD) of hip 08/17/19 24 Migraine variant 06/14/2023 Atherosclerosis of [place] co ronary artery without angina pectoris 06/14/2023 [...] (PFIZER-Comirnaty) 12/21/2022 Pneumococcal Conjugate Vacci ne, 20-valent ([id number]) 10/13/2021 Pneumococcal Polysaccharide PPV23 (Pneumovax) 04/14/2020 RSV [...] (15 years old or older) Yes 08/17/19 24 Cognitive Status Response Date of Assessm ent Because of a physical, menta l, or emotional condition, do you have serious difficulty concentrating, remembering, or making decisions? (5 years old or older) No 08/17/2023 documented as of this encounter Miscellaneous Notes * Telephone Encounter - [place] MED ASSIST - 09/17/2023 2:53 PM EDT Patient was advised and will be stopping by the labs. Patient will also be dropping off paperwork that needs to be filled out by Dr. Mack to get a new wheelchair. * Telephone Encounter - Berna Mack MD - 09/17/2023 10:39 AM EDT Would like her to have labs and COVID test done. Orders placed. Is she able to stop into the lab and have them completed? * Telephone Encounter - Denise White LPN - 09/17/2023 9:14 AM EDT HH Concerns Jesse OT, Calling from: [facility] Report/Concerns of: increased swelling and cough Symptoms: see narrative Vitals: T 97.8 P 78 RR 18 BP 123/76 SP O2 98% RA Weight n/a Blood sugar n/a Narrative: pt is post op bilat hip replacement 08/16 and f/u appt with Dr Mack on 09/09. Pt has increase swelling in feet legs and thighs starting over the weekend, Jesse indicates edema is pitting "Ittakes a good 3 or 4 second to come back up." left worse than right. No redness or warm. Bilat hip pain / she is taking tylenol. Pt is elevating legs. Please advise She also developed a new cough over the weekend. Cough is productive with green phlegm. She has sinus congestion, a scratchy throat. No fever. She is taking Dylsum and Claritin but it doesn't controlcough. Please advise. Call back Elsa with any advice or orders at [phone] * Telephone Encounter - [place] OSA - 09/17/2023 9:12 AM EDT Reason for patient's call: concerns about medication and change of status. Edema in her foot and hips. Cough Caller was transferred to denise at the nurse line. documented in this encounter Plan of Treatment Upcoming Encounters Date Type Department Care Team (Late st Contact Info) Description 09/27/2023 8:30 AM EDT Home Visit [facility] [address] [facility] [place] [address] Megan Mata, RN 132 [facility] [place] [address] 10/03/2023 12:00 PM EDT Office Visit Orthopaedics, [place] [address] [place] [address] Junior Chavez PA-C [address] [place] [address] 11/08/2023 9:00 AM EDT [facility] [address] [facility] [place] [address] Tre Penny PA-C 132 [facility] [place] [address] 11/14/2023 9:00 AM EDT Office Visit Family Practice [facility] 200 [facility] [place] [address] Deon Dougherty III, MD 200 [facility] [place] [address] 12/18/2023 8:30 AM EDT Office Visit Cardiology, [facility] [address] [facility] [place] [address] Los Carrizales DO 132 [facility] [place] [address] 03/20/2024 2:00 PM EST Laboratory Laboratory [facility] 200 [facility] [place] [phone] Liz, Lab [facility] 200 [facility] [place] [address] 03/27/2024 2:00 PM EST Office Visit Hematology/Oncology [facility] [address] [facility] [place] [phone] Lizbeth Madison CRNP [address] [facility] [place] [address] Scheduled Orders Name Type Priority Associated Diagnoses Orde r Schedule BNP, NT-PRO Lab Routine Bilateral lower extremity edema Expected: 09/17/2023 (Approximate), Expires: 09/16/2024 SARS-COV-2 (COVID-19), NAAT Lab Routine Acute cough Expected: 09/17/2023, Expires: 09/16/2024 CBC WITH WBC DIFFERENTIAL Lab Routine Acute cough Expected: 09/17/2023 (Approximate), Expires: 09/16/2024 Health Maintenance Due Date Last Done Comments Cologuard 06/16/1999 Fecal Occult Blood Test 06/16/1999 Sigmoidoscopy 06/16/1999 COVID-19 Vaccine ( season) 2023 12/21/2022, 01/25/2021, 2020, Additional history exists Diabetic Eye Exam 07/11/2023 07/10/2022, , 07/10/2022, Additional history exists Influenza Vaccine (FLU shot) (#1) 2023 12/21/2022, 02/28/2022, 03/07/2021, Additional history exists HbA1c 02/08/2024 08/08/2023, 03/03/2023, 11/08/2022, Additional history exists GFR 03/12/2024 09/10/2023, 08/11, 08/27/2023, Additional history exists Mammogram 04/23/2024 04/23/2023, 04/12, 04/19/2022, Additional history exists Albumin/Creatinine Ratio 05/10/2024 024, 04/17/2022, 04/15/2021, Additional history exists Diabetic Foot Exam 05/10/2024 05/11/2023, 0 04/17/2022, 04/15/2021 Depression Screening 06/07/2024 06/08/2023 CKD PHOS USE SMARTSET 32379 08/25/202408/10, 08/25/2023, 08/24/2023, Additional history exists CKD HGB USE SMARTSET 58381 09/09/202409/09, 09/10/2023, 09/03/2023, Additional history exists Colonoscopy [...] this encounter Medical Devices Implanted Type Area Amusement Ride Inspector Device Identifier Shelf Expiration Date Model / Serial / Lot Valve Transcath Resilia 23mm - [id number] Implanted:Qty: 1 on 06/05/2023 by Mat Lucia MD at [facility] LABS [facility] [place] [employer] [id number] 11/12/2023 [id number] / / Screw Bone 6.5x30mm - [id number] Implanted:Qty: 1 on 08/17/2023 by Chito Cochran MD at OR [facility] [place] Right: Hip ALEYDA : ORTHOPAEDICS 05/22/2028 [id number] / / HFF Screw Low Profile 6.0wze04dy - [id number] Implanted:Qty: 1 on 08/17/2023 by Chito Cochran MD at OR [facility] [place] Right: Hip ALEYDA : ORTHOPAEDICS 03/31/2028 [id number] / / [id number] Implant Stem Hip Colr High 2 - [id number] Implanted:Qty: 1 on 08/17/2023 by Chito Cochran MD at OR [facility] [place] Right: Hip ALEYDA : ORTHOPAEDICS 03/20/2027 [id number] / / [id number] Hip Steven Rdz Md D 36 25 - [id number] Implanted:Qty: 1 on 08/17/2023 by Chito Cochran MD at OR [facility] [place] Right: Hip ALEYDA : ORTHOPAEDICS 03/19/2028 6570-0-436 / / [id number] Hip Shell Trident X3 10 36x50 - [id number] Implanted:Qty: 1 on 08/17/2023 by Chito Cochran MD at OR [facility] [place] Left: Hip ALEYDA : ORTHOPAEDICS 07/10/2028 763-10-36E / / [id number] Implant Hip Acetab Shell 52e - [id number] Implanted:Qty: 1 on 08/17/2023 by Chito Cochran MD at OR [facility] [place] Left: Hip ALEYDA : ORTHOPAEDICS 07/07/2028 709-04-52E / / [id number] 6.5mm Low Profile Hex Screw 6 - [id number] Implanted:Qty: 1 on 08/17/2023 by Chito Cochran MD at OR [facility] [place] Left: Hip ALEYDA : ORTHOPAEDICS 04/24/2028 0039-4320 / / [id number] Screw Low Profile 6.3luu46ys - [id number] Implanted:Qty: 1 on 08/17/2023 by Chito Cochran MD at OR [facility] [place] Left: Hip ALEYDA : ORTHOPAEDICS 04/16/2028 7880-3868 / / [id number] Implant Stem Hip Colr High 1 - [id number] Implanted:Qty: 1 on 08/17/2023 by Chito Cochran MD at OR [facility] [place] Left: Hip ALEYDA : ORTHOPAEDICS 12/13/2027 [id number] / / [id number] Hip Hd Ricardo Rdz Md D 36 25 - [id number] Implanted:Qty: 1 on 08/17/2023 by Chito Cochran MD at OR [facility] [place] Left: Hip ALEYDA : ORTHOPAEDICS 01/30/2028 6570-0-436 / / [id number] Hip Shell Trident X3 10 36x50 - [id number] Implanted:Qty: 1 on 08/17/2023 by Chito Cochran MD at OR [facility] [place] Right: Hip ALEYDA : ORTHOPAEDICS 05/03/2028 763-10-36E / / [id number] Implant Hip Acetab Shell 52e - [id number] Implanted:Qty: 1 on 08/17/2023 by Chito Cochran MD at OR [facility] [place] Right: Hip ALEYDA : ORTHOPAEDICS 06/21/2028 709-04-52E / / [id number] documented as of this encounter Visit Diagnoses Diagnosis Bilateral lower extremity edema- Primary Edema Acute cough documented in this encounter [...] Power of Attor ludmila? No Care Teams Family And Divorce Legal Assistant Relationship Specialty Start Date End Date Deon Dougherty III, MD [address] [facility] [place] [address] PCP - General 10/25/1995 documented as of this encounter
--- OUTSIDE RECORDS SUMMARY | 2023-09-22 13:21 | External Medical Summary ---
Author Name Unknown Address Unknown Organization [id number]:LABORATORY [facility] - [address] [facility] [address] Laboratory Report Ordering Provider Test Date Status MARION DON 09/17/2023 16:21:04 Final Observation Date Value Abnormality Reference (Units ) Status WBC, Total 09/17/2023 16:21:04 10.04 4.00-10.80 (K/uL) Final RBC 09/17/2023 16:21:04 3.23 3.85-5.15 (M/uL) Final Hemoglobin 09/17/2023 16:21:04 9.3 Below low normal 12.0-15.3 (g/dL) Final HCT 09/17/2023 16:21:04 31.9 Below low normal 36.0-45.2 (%) Final MCV 09/17/2023 16:21:04 98.8 81.5-97.5 (fL) Final MCH 09/17/2023 16:21:04 28.8 27.0-34.0 (pg) Final MCHC 09/17/2023 16:21:04 29.2 32.0-36.0 (g/dL) Final RDW 09/17/2023 16:21:04 16.6 11.5-15.5 (%) Final Platelets 09/17/2023 16:21:04 395 140-400 (K/uL) Final MPV 09/17/2023 16:21:04 9.9 6.6-11.1 (fL) Final Nucleated erythrocytes/100 leukocytes [Ratio] in Blood by Automated count 09/17/2023 16:21:04 0 <=0 (/100 WBCs) Final Performing Location LABORATORY [facility] - [address] [place] [address]
--- OUTSIDE RECORDS SUMMARY | 2023-09-22 13:22 | External Medical Summary ---
Author Name Unknown Address Unknown Organization [id number]:LABORATORY [facility] - [address] [facility] [address] Laboratory Report Ordering Provider Test Date Status MARION DON 09/17/2023 16:21:04 Final Observation Date Value Abnormality Reference (Units ) Status SYNC LEUKOCYTES IN BLOOD BY AUTOMATED COUNT 09/17/2023 16:21:04 10.04 4.00-10.80 (K/uL) Final Segs 09/17/2023 16:21:04 65.4 40.0-75.0 (%) Final Lymphs % 09/17/2023 16:21:04 22.4 18.0-42.0 (%) Final Monos 09/17/2023 16:21:04 7.9 1.0-11.0 (%) Final Eosinophils 09/17/2023 16:21:04 3.3 0.0-6.0 (%) Final Basos 09/17/2023 16:21:04 0.4 0.0-2.0 (%) Final Immature Granulocyte, Percent 09/17/2023 16:21:04 0.6 0.0-2.0 (%) Final Absolute Segs 09/17/2023 16:21:04 6.57 1.80-7.70 (K/uL) Final Lymphs, absolute 09/17/2023 16:21:04 2.25 1.00-4.80 (K/ul) Final Monos, Abs 09/17/2023 16:21:04 0.79 0.00-1.10 (K/uL) Final Eos, Abs 09/17/2023 16:21:04 0.33 0.00-0.70 (K/uL) Final Basos, Abs 09/17/2023 16:21:04 0.04 0.00-0.20 (K/uL) Final Immature Granulocytes, Number 09/17/2023 16:21:04 0.06 0.00-0.20 (K/uL) Final Performing Location LABORATORY [facility] - [address] [facility] [address]
--- OUTSIDE RECORDS SUMMARY | 2023-09-22 13:22 | External Medical Summary ---
Author Name Unknown Address Unknown Organization [id number]:[facility] [place] [address] Laboratory Report Ordering Provider Test Date Status MARION DON 09/10/2023 09:55:12 Final Observation Date Value Abnormality Reference (Units ) Status WBC, Total 09/10/2023 09:55:12 4.39 4.00-10.8 0 (K/uL) Final RBC 09/10/2023 09:55:12 3.32 3.85-5.15 (M/uL) Final Hemoglobin 09/10/2023 09:55:12 9.5 Below low normal 12 .0-15.3 (g/dL) Final HCT 09/10/2023 09:55:12 32.2 Below low normal 36. 0-45.2 (%) Final MCV 09/10/2023 09:55:12 97.0 81.5-97.5 (fL) Final MCH 09/10/2023 09:55:12 28.6 27.0-34.0 (pg) Final MCHC 09/10/2023 09:55:12 29.5 32.0-36.0 (g/dL) Final RDW 09/10/2023 09:55:12 17.9 11.5-15.5 (%) Final Platelets 09/10/2023 09:55:12 387 140-400 (K /uL) Final MPV 09/10/2023 09:55:12 9.0 6.6-11.1 ( fL) Final Performing Location [facility] [place] [address]
--- OUTSIDE RECORDS SUMMARY | 2023-09-22 13:22 | External Medical Summary | Summary of Care ---
Author Name Unknown Organization [facility] Address [address] [place] [address] Phone [phone] Care Team Providers Care Forest Fire Specialist Supervisor Name Role Phone Farhat MEEHAN MD, Deon Cerna Primary Care Provider [phone] Reason for Visit * Reason Comments Outpatient Testing Encounter Details Date Type Department Care Team (Late st Contact Info) Description 09/10/2023 9:50 AM EDT Laboratory Laboratory [facility] [address] [place] [address] [facility] [address] [place] [address] Acute blood loss anemia; Hypotension due to hypovolemia Allergies Active Allergy Reactions Criticality Noted Date Comments Dichloralphenazone 08/15/2022 Other Reaction(s): RASH Isometheptene 08/15/2022 Other Reaction(s): RASH Midrin 07/21/1999 Red and ictchy in the face documented as of this encounter (statuses as of 09/10/2023) Medications Medication Sig Dispensed Refills Start Date End Date Status OCUVITE-LUTEIN PO CAPS One capsule twice daily Active RIBOFLAVIN (VITAMIN B-2) 100 MG Tablet [...] at bedtime. 90 Tablet 3 07/09/2023 Active Additional Information Patient not taking.Reported on 09/10/2023 Diclofenac Sodium 1 % External Gel (Voltaren) Apply topically to affected area 4 times a day. Apply to areas outside both hips/troch bursitis 350 g 6 08/08/2023 Active oxyCODONE HCl 5 MG Oral Tablet (Oxy [...] Capsule before bedtime. 84 Capsule 08/17/2023 Active Vitamin 27-0.8 MG Oral Tablet Take 1 Tablet by mouth in the morning. 60 Tablet 08/17/2023 Active Aspirin 81 MG Oral Tablet [...] the morning. 30 Tablet 2 08/26/2023 Active documented as of this encounter (statuses as of 09/10/2023) Active Problems Problem Noted Date Diagnosed Date Status post bilateral hip replacements Degenerative joint disease (DJD) of hip 08/17/19 24 Migraine variant 06/14/2023 Atherosclerosis of [place] co ronary artery without angina pectoris 06/14/2023 [...] as of this encounter (statuses as of 09/10/2023) Resolved Problems Problem Noted Date Diagnosed Date [...] as of this encounter (statuses as of 09/10/2023) Immunizations Name Administration Dates Next Due COVID-19 mRNA, LNP-s, No Pre serve, 2-Dose Series (Pfizer) 01/25/2021,2020,05/25/2020 COVID-19, MRNA-LNP, 23-24, P F, 30 MCG/0.3 mL, 12 YRS AND ABOVE, IM (PFIZER-Comirnaty) 12/21/2022 Pneumococcal Conjugate Vacci ne, 20-valent ([id number]) 10/13/2021 Pneumococcal Polysaccharide PPV23 (Pneumovax) 04/14/2020 RSV [...] 06/26/2023 Does the household have a re lar source of income? (Household - for ages [...] Care Team (Late st Contact Info) Description 09/12/2023 10:00 AM EDT Office Visit Orthopaedics, [place] [address] [place] [address] Junior Chavez PA-C [address] [place] [address] 09/14/2023 12:30 PM EDT Home Visit [facility] [facility] [address] [place] [address] Megan Mata RN [address] [place] [address] 11/08/2023 9:00 AM EDT [facility] Visit [facility] [address] [place] [address] Tre Penny PA-C [address] [place] [address] 11/14/2023 9:00 AM EDT Office Visit [facility] Practice [facility] [address] [place] [address] Farhat Deon MEEHAN MD [address] [place] [address] 12/18/2023 8:30 AM EDT Office Visit Cardiology, [facility] [address] [place] [address] Los Carrizales DO [address] [place] [address] 03/20/2024 2:00 PM EST Laboratory Laboratory [facility] 200 [facility] [place] [phone] [facility] Lab [facility] [address] [facility] [place] [address] 03/27/2024 2:00 PM EST Office Visit Hematology/Oncology [facility] [address] [place] [phone] Lizbeth Madison CRNP [address] [place] [address] [place] [address] Pending Results Name Type Priority Associated Diagnoses Date /Time BASIC METABOLIC PANEL Lab Routine Hypotension due to hypovolemia 09/10/2023 9:55 AM EDT Health Maintenance Due Date Last Done Comments Cologuard 06/16/1999 Fecal Occult Blood Test 06/16/1999 Sigmoidoscopy 06/16/1999 COVID-19 Vaccine ( season) 2023 12/21/2022, 01/25/2021, 2020, Additional history exists Diabetic Eye Exam 07/11/2023 07/10/2022, , 07/10/2022, Additional history exists Influenza Vaccine (FLU shot) (#1) 2023 12/21/2022, 02/28/2022, 03/07/2021, Additional history exists HbA1c 02/08/2024 08/08/2023, 03/0 03/2023, 11/08/2022, Additional history exists GFR 03/04/2024 09/03/2023, 08/10, 08/26/2023, Additional history exists Mammogram 04/23/2024 04/23/2023, 04/12, 04/19/2022, Additional history exists Albumin/Creatinine Ratio 05/10/2024 024, 04/17/2022, 04/15/2021, Additional history exists Diabetic Foot Exam 05/10/2024 05/11/2023, 0 04/17/2022, 04/15/2021 Depression Screening 06/07/2024 06/08/2023 CKD PHOS USE SMARTSET 92266 08/25/202408/10, 08/25/2023, 08/24/2023, Additional history exists CKD HGB USE SMARTSET 07538 09/09/202409/09, 09/10/2023, 09/03/2023, Additional history exists Colonoscopy 02/03/2025 02/03/2015, 01/11, 12/14/2006 Colorectal Cancer Screening 02/03/2025 DTaP,Tdap,and Td Vaccines (3 - Td or Tdap) 01/17/2027 01/17/2017, 11/16/2006 DXA Scan 08/14/2029 08/14/2022, 07/2022, 08/17/2020 Zoster Vaccines Completed 10/22/2017, 10/2017, 07/20/2015 Pneumococcal Vaccine: 65+ Years Completed 10/13/2021, 04/14/2020 GARDASIL-HPV IMMUNIZATION SERIES Aged Out No longer eligible based on patient's age to complete this topic Hepatitis B Aged Out No longer eligi ble based on patient's age to complete this topic MENINGOCOCCAL (MENACTRA/MENVEO) Aged Out No longer eligible based on patient's age to complete this topic documented as of this encounter Medical Devices Implanted Type Area Slimer Device Identifier Shelf Expiration Date Model / Serial / Lot Valve Transcath Resilia 23mm - [id number] Implanted:Qty: 1 on 06/05/2023 by Mat Lucia MD at [facility] [place] [employer] [id number] 11/12/2023 [id number] / / Screw Bone 6.5x30mm - [id number] Implanted:Qty: 1 on 08/17/2023 by Chito Cochran MD at [place] [facility] [place] Right: Hip ALEYDA : ORTHOPAEDICS 05/22/2028 8481-7569 / / HFF Screw Low Profile 6.6dlr37cj - [id number] Implanted:Qty: 1 on 08/17/2023 by Chito Cochran MD at [place] [facility] [place] Right: Hip ALEYDA : ORTHOPAEDICS 03/31/2028 2475-6984 / / [id number] Implant Stem Hip Colr High 2 - [id number] Implanted:Qty: 1 on 08/17/2023 by Chito Cochran MD at [place] [facility] [place] Right: Hip ALEYDA : ORTHOPAEDICS 03/20/2027 4086-1068 / / [id number] Hip Hd Ricardo Rdz Md D 36 25 - [id number] Implanted:Qty: 1 on 08/17/2023 by Chito Cochran MD at [place] [facility] [place] Right: Hip ALEYDA : ORTHOPAEDICS 03/19/2028 6570-0-436 / / [id number] Hip Shell Trident X3 10 36x50 - [id number] Implanted:Qty: 1 on 08/17/2023 by Chito Cochran MD at [place] [facility] Left: Hip ALEYDA : ORTHOPAEDICS 07/10/2028 763-10-36E / / [id number] Implant Hip Acetab Shell 52e - [id number] Implanted:Qty: 1 on 08/17/2023 by Chito Cochran MD at [place] [facility] Left: Hip ALEYDA : ORTHOPAEDICS 07/07/2028 709-04-52E / / [id number] 6.5mm Low Profile Hex Screw 6 - [id number] Implanted:Qty: 1 on 08/17/2023 by Chito Cochran MD at [place] [facility] Left: Hip ALEYDA : ORTHOPAEDICS 04/24/2028 1706-6885 / / [id number] Screw Low Profile 6.1uvr05bl - [id number] Implanted:Qty: 1 on 08/17/2023 by Chito Cochran MD at [place] [facility] Left: Hip ALEYDA : ORTHOPAEDICS 04/16/2028 6579-4670 / / [id number] Implant Stem Hip Colr High 1 - [id number] Implanted:Qty: 1 on 08/17/2023 by Chito Cochran MD at [place] [facility] Left: Hip ALEYDA : ORTHOPAEDICS 12/13/2027 0533-0256 / / [id number] Hip Hd Ricardo Rdz Md D 36 25 - [id number] Implanted:Qty: 1 on 08/17/2023 by Chito Cochran MD at [place] [facility] Left: Hip ALEYDA : ORTHOPAEDICS 01/30/2028 6570-0-436 / / [id number] Hip Shell Trident X3 10 36x50 - [id number] Implanted:Qty: 1 on 08/17/2023 by Chito Cochran MD at [place] [facility] Right: Hip ALEYDA : ORTHOPAEDICS 05/03/2028 763-10-36E / / [id number] Implant Hip Acetab Shell 52e - [id number] Implanted:Qty: 1 on 08/17/2023 by Chito Cochran MD at [place] [facility] Right: Hip ALEYDA : ORTHOPAEDICS 06/21/2028 709-04-52E / / [id number] documented as of this encounter Procedures Procedure Name Priority Date/Time Associated Diagnosis Comments DIFFERENTIAL, AUTOMATED Routine 09/10/2023 9:55 AM EDT Acute blood loss anemia CBC Routine 09/10/2023 9:55 AM EDT Acute blood loss anemia CBC Routine 09/10/2023 9:55 AM EDT Acute blood loss anemia documented in this encounter Results * (ABNORMAL) DIFFERENTIAL, AUTOMATED (09/10/2023 9:55 AM EDT) WBC 4.39 4.00 - 10.80 K/uL 09/10/2023 10:05 AM EDT LABORATORY [place] 56-02 Neutrophils % 42.7 40.0 - 75.0 % 09/10/2023 10:05 AM EDT [facility] 56-02 Lymphocytes % 31.0 18.0 - 42.0 % 09/10/2023 10:05 AM EDT [facility] 56 Monocytes % 20.0(H) 1.0 - 11.0 % 09/10/2023 10:05 AM EDT [facility] 56 Eosinophils % 5.2 0.0 - 6.0 % 09/10/2023 10:05 AM EDT [facility] 56 Basophils % 1.1 0.0 - 2.0 % 09/10/2023 10:05 AM EDT [facility] 56 Absolute Neutrophils 1.87 1.80 - 7.70 K/uL 09/10/2023 10:05 AM EDT [facility] 56 Absolute Lymphocytes 1.36 1.00 - 4.80 K/ul 09/10/2023 10:05 AM EDT [facility] 56 Absolute Monocytes 0.88 0.00 - 1.10 K/uL 09/10/2023 10:05 AM EDT [facility] 56 Absolute Eosinophils 0.23 0.00 - 0.70 K/uL 09/10/2023 10:05 AM EDT [facility] 56 Absolute Basophils 0.05 0.00 - 0.20 K/uL 09/10/2023 10:05 AM EDT [facility] 56 Blood Venous blood specimen / Unknown Venipuncture / Unknown 09/10/2023 9:55 AM EDT 09/10/2023 9:55 AM EDT Berna Mack MD LAB BLOOD ORDERABLES [facility] 56 [address] [place] [address] * (ABNORMAL) CBC (09/10/2023 9:55 AM EDT) WBC 4.39 4.00 - 10.80 K/uL 09/10/2023 10:05 AM EDT [facility] 56 RBC 3.32 3.85 - 5.15 M/uL 09/10/2023 10:05 AM EDT [facility] 56 HGB 9.5(L) 12.0 - 15.3 g/dL 09/10/2023 10:05 AM EDT [facility] 56 HCT 32.2(L) 36.0 - 45.2 % 09/10/2023 10:05 AM EDT [facility] 56- MCV 97.0 81.5 - 97.5 fL 09/10/2023 10:05 AM EDT [facility] 56 MCH 28.6 27.0 - 34.0 pg 09/10/2023 10:05 AM EDT [facility] 56 MCHC 29.5 32.0 - 36.0 g/dL 09/10/2023 10:05 AM EDT [facility] 56 RDW 17.9 11.5 - 15.5 % 09/10/2023 10:05 AM EDT [facility] 56 PLT 387 140 - 400 K/uL 09/10/2023 10:05 AM EDT [facility] 56 MPV 9.0 6.6 - 11.1 fL 09/10/2023 10:05 AM T [facility] 56 Blood Venous blood specimen / Unknown Venipuncture / Unknown 09/10/2023 9:55 AM EDT 09/10/2023 9:55 AM EDT Berna Mack MD LAB BLOOD ORDERABLES Performing Organization Address City/State/[facility] Co de Phone Number [facility] [address] [place] [address] documented in this encounter Visit Diagnoses Diagnosis Acute blood loss anemia Acute posthemorrhagic anemia Hypotension due to hypovolemia documented in this [...] Power of Attor ludmila? No Care Teams [employer] Supervisor Relationship Specialty Start Date End Date Deon Dougherty III, MD [address] [facility] [place] [address] PCP - General 10/25/1995 documented as of this encounter
--- OUTSIDE RECORDS SUMMARY | 2023-09-22 13:22 | External Medical Summary | Summary of Care ---
Author Name Unknown Organization [facility] Address [address] [place] [address] Phone [phone] Care Team Providers Care Laser Operator Name Role Phone Farhat MEEHAN MD, Deon Cerna Primary Care Provider [phone] Reason for Visit * Reason Onset Date Comments Forms Request 09/10/2023 Encounter Details Date Type Department Care Team (Late st Contact Info) Description 09/10/2023 Telephone Family Practice [facility] [address] [place] [address] Berna Mack MD [address] [place] [address] Forms Request Allergies Active Allergy Reactions Criticality Noted Date Comments Dichloralphenazone 08/15/2022 Other Reaction(s): RASH Isometheptene 08/15/2022 Other Reaction(s): RASH Midrin 07/21/1999 Red and ictchy in the face documented as of this encounter (statuses as of 09/11/2023) Medications Medication Sig Dispensed Refills Start Date [...] as of this encounter (statuses as of 09/11/2023) Active Problems Problem Noted Date Diagnosed Date Status post bilateral hip replacements 4 Degenerative joint disease (DJD) of hip 08/17/19 Migraine variant 06/14/2023 Atherosclerosis of [place]' co ronary artery without angina pectoris 06/14/2023 [...] as of this encounter (statuses as of 09/11/2023) Resolved Problems Problem Noted Date Diagnosed Date [...] as of this encounter (statuses as of 09/11/2023) Immunizations Name Administration Dates Next Due COVID-19 mRNA, LNP-s, No Pre serve, 2-Dose Series (Pfizer) 01/25/2021,2020,05/25/2020 COVID-19, MRNA-LNP, 23-24, P F, 30 MCG/0.3 mL, 12 YRS AND ABOVE, IM (PFIZER-Comirnaty) 12/21/2022 Pneumococcal Conjugate Vacci ne, 20-valent ([id number]) 10/13/2021 Pneumococcal Polysaccharide PPV23 (Pneumovax) 04/14/2020 RSV [...] Telephone Encounter - Berna Mack MD - 09/11/2023 11:28 AM EDT I didn't receive this form * Telephone Encounter - Germania Simon OSA - 09/11/2023 11:12 AM EDT Patient's calling in to check on the status of previous message. Patient Called within 48 hour timeframe. Reminded patient of 48 hour turn-around time. * Telephone Encounter - Brooke Dawn RN - 09/11/2023 10:26 AM EDT Did you get the form? * Telephone Encounter - Gudelia Peres OSA - 09/10/2023 11:02 AM EDT Pt needs a prescription for a hospital bed & a wheelchair. Please contact pt by phone once prescription is placed. There are forms from [facility] that I will place in the mailbox. The paperwork describes what is needed for pt & I am including it so the PCP can review it in order toknow the correct things to order. Please fax rx to [facility] home[facility] & then contact the pt when sent. Thank you documented in this encounter Plan of Treatment Upcoming Encounters Date Type Department Care Team (Late st Contact Info) Description 09/12/2023 10:00 AM EDT Office Visit Orthopaedics, [place] [address] [place] [address] Junior Chavez PA-C [address] [place] [address] 09/14/2023 12:30 PM EDT [facility] [address] [facility] [place] [address] Megan Mata RN [address] [place] [address] 11/08/2023 9:00 AM EDT Home Visit [facility] [place], [facility] [address] [place] [address] Tre Penny PA-C [address] [place] [address] 11/14/2023 9:00 AM EDT Office Visit Family Practice [facility] [address] [facility] [place], [place] [address] Deon Dougherty III, MD 200 [place] [address] 12/18/2023 8:30 AM EDT Office Visit Cardiology, [facility] [address] [place] [address] Los Carrizales DO [address] [place] [address] 03/20/2024 2:00 PM EST Laboratory Laboratory [facility] [address] [place] [phone] [place], Lab [facility] [address] [facility] [place] [address] 03/27/2024 2:00 PM EST Office Visit Hematology/Oncology [facility] [address] [place] [phone] Lizbeth Madison CRNP [address] [facility] [place] [address] Health Maintenance Due Date Last Done Comments Cologuard 06/16/1999 Fecal Occult Blood Test 06/16/1999 Sigmoidoscopy 06/16/1999 COVID-19 Vaccine ( season) 2023 12/21/2022, 01/25/2021, 2020, Additional history exists Diabetic Eye Exam 07/11/2023 07/10/2022, , 07/10/2022, Additional history exists Influenza Vaccine (FLU shot) (#1) 2023 12/21/2022, 02/28/2022, 03/07/2021, Additional history exists HbA1c 02/08/2024 08/08/2023, 03/0 03/2023, 11/08/2022, Additional history exists GFR 03/12/2024 09/10/2023, 08/11, 08/27/2023, Additional history exists Mammogram 04/23/2024 04/23/2023, 04/12, 04/19/2022, Additional history exists Albumin/Creatinine Ratio 05/10/2024 024, 04/17/2022, 04/15/2021, Additional history exists Diabetic Foot Exam 05/10/2024 05/11/2023, 0 04/17/2022, 04/15/2021 Depression Screening 06/07/2024 06/08/2023 CKD PHOS USE SMARTSET 22339 08/25/2024 0608/2023, 08/25/2023, 08/24/2023, Additional history exists CKD HGB USE SMARTSET 60198 09/09/202409/09, 09/10/2023, 09/03/2023, Additional history exists Colonoscopy [...] this encounter Medical Devices Implanted Type Area Certified Welding Inspector Device Identifier Shelf Expiration Date Model / Serial / Lot Valve Transcath Resilia 23mm - [id number] Implanted:Qty: 1 on 06/05/2023 [place] Mat Lucia [place] [facility] [place] [employer] [id number] 11/12/2023 [id number] / / Screw Bone 6.5x30mm - [id number] Implanted:Qty: 1 on 08/17/2023 by Chito Cochran MD [place] [facility]: Hip ALEYDA : ORTHOPAEDICS 05/22/2028 2369-2945 / / HFF Screw Low Profile 6.1rbp23jb - [id number] Implanted:Qty: 1 on 08/17/2023 by Chito Cochran MD [place] [facility]: Hip ALEYDA : ORTHOPAEDICS 03/31/2028 6206-6046 / / [id number] Implant Stem Hip Colr High 2 - [id number] Implanted:Qty: 1 on 08/17/2023 by Chito Cochran MD [place] [facility] [place]: Hip ALEYDA : ORTHOPAEDICS 03/20/2027 6474-7371 / / [id number] Hip Hd Ricardo Chavira 36 25 - [id number] Implanted:Qty: 1 on 08/17/2023 by Chito Cochran MD [place] [facility] [place]: Hip ALEYDA : ORTHOPAEDICS 03/19/2028 6570-0-436 / / [id number] Hip Shell Trident X3 10 36x50 - [id number] Implanted:Qty: 1 on 08/17/2023 by Chito Cochran MD [place] [facility]: Hip ALEYDA : ORTHOPAEDICS 07/10/2028 763-10-36E / / [id number] Implant Hip Acetab Shell 52e - [id number] Implanted:Qty: 1 on 08/17/2023 by Chito Cochran MD [place] [facility]: Hip ALEYDA : ORTHOPAEDICS 07/07/2028 709-04-52E / / [id number] 6.5mm Low Profile Hex Screw 6 - [id number] Implanted:Qty: 1 on 08/17/2023 by Chito Cochran MD [place] [facility]: Hip ALEYDA : ORTHOPAEDICS 04/24/2028 1895-4637 / / [id number] Screw Low Profile 6.6ahl64zo - [id number] Implanted:Qty: 1 on 08/17/2023 by Chito Cochran MD [place] [facility]: Hip ALEYDA : ORTHOPAEDICS 04/16/2028 5366-0338 / / [id number] Implant Stem Hip Colr High 1 - [id number] Implanted:Qty: 1 on 08/17/2023 by Chito Cochran MD [place] [facility]: Hip ALEYDA : ORTHOPAEDICS 12/13/2027 0635-0233 / / [id number] Hip Hd Ricardo Chavira 36 25 - [id number] Implanted:Qty: 1 on 08/17/2023 by Chito Cochran MD [place] [facility]: Hip ALEYDA : ORTHOPAEDICS 01/30/2028 6570-0-436 / / [id number] Hip Shell Trident X3 10 36x50 - [id number] Implanted:Qty: 1 on 08/17/2023 by Chito Cochran MD [place] [facility]: Hip ALEYDA : ORTHOPAEDICS 05/03/2028 763-10-36E / / [id number] Implant Hip Acetab Shell 52e - [id number] Implanted:Qty: 1 on 08/17/2023 by Chito Cochran MD [place] [facility]: Hip ALEYDA : ORTHOPAEDICS 06/21/2028 709-04-52E / / [id number] documented as of this encounter Advance Directives * Full Code [...] Power of Attor ludmila? No Care Teams Laser Operator Relationship Specialty Start Date End Date Deon Dougherty III, MD [address] [place] [address] PCP - General 10/25/1995 documented as of this encounter
--- OUTSIDE RECORDS SUMMARY | 2023-09-22 13:22 | External Medical Summary | Summary of Care ---
Author Name Unknown Organization [facility] Address [address] [place] [address] Phone [phone] Care Team Providers Care Chair Post Machine Operator Name Role Phone Farhat MEEHAN MD, Deon Cerna Primary Care Provider [phone] Reason for Visit * Reason Onset Date Comments Home Health 09/07/2023 Encounter Details Date Type Department Care Team (Late st Contact Info) Description 09/07/2023 Telephone Family Practice [facility] [address] [place] [address] Deon Dougherty III, MD [address] [place] [address] Home Health Allergies Active Allergy Reactions Criticality Noted Date Comments Dichloralphenazone 08/15/2022 Other Reaction(s): RASH Isometheptene 08/15/2022 Other Reaction(s): RASH Midrin 07/21/1999 Red and ictchy in the face documented as of this encounter (statuses as of 09/07/2023) Medications Medication Sig Dispensed Refills Start Date End Date Status OCUVITE-LUTEIN PO CAPS One capsule twice daily Active RIBOFLAVIN (VITAMIN B-2) 100 MG Tablet Take 2 Tablets by mouth in the morning and 2 Tablets before bedtime. Active triamcinolone acetonide (ARISTOCORT) 0.1 % creamIndications:O ther psoriasis APPLY TWICE DAILY DIRECTED 30 g 5 07/02/2018 Active Letrozole 2.5 MG Oral Tablet (Femara)Indication s:Breast carcinoma, female, right (HCC) Take 1 Tablet [...] Active Cyclobenzaprine HCl 10 MG Oral Tablet (Flexeril)Indicati ons:Migraine variant TAKE ONE TABLET BY MOUTH THREE TIMES A DAY -- IN THE MORNING , NOON, AND AT BEDTIME 270 Tablet 1 07/06/2023 07/05/2024 Active Atorvastatin Calcium 80 MG Oral Tablet (Lipitor)Indicatio ns:Dyslipidemia, goal to be determined Take 1 Tablet by mouth at bedtime. 90 Tablet 3 07/09/2023 Active Nadolol 20 MG Oral Tablet (Corgard)Indicatio ns:Migraine variant Take 1 Tablet by mouth at [...] 1000 MG Oral Tablet Extended Release 24 HourIndications:Ab normal blood chemistry Take 1 Tablet by mouth [...] as of this encounter (statuses as of 09/07/2023) Active Problems Problem Noted Date Diagnosed Date Status post bilateral hip replacements Degenerative joint disease (DJD) of hip 08/17/19 Migraine variant 06/14/2023 Atherosclerosis of [place] co ronary artery without angina pectoris 06/14/2023 Atrioventricular (AV) dissociation 06/06/2023 Conduction disorder of the heart 06/06/2023 RBBB (right bundle branch block) 06/06/2023 S/P TAVR (transcatheter aortic valve replacement ) 06/05/2023 History of breast cancer 11/08/2022 Type 2 diabetes mellitus with diabetic polyneuro lesley 04/15/2021 Hypertensive kidney disease with stage 3a chronic kidney disease 10/13/2020 Diabetes mellitus without complication 1 Other psoriasis 04/14/2020 Elevated homocysteine 07/24/2018 History [...] as of this encounter (statuses as of 09/07/2023) Resolved Problems Problem Noted Date Diagnosed Date [...] as of this encounter (statuses as of 09/07/2023) Immunizations Name Administration Dates Next Due COVID-19 mRNA, LNP-s, No Pre serve, 2-Dose Series ([employer]) 01/25/2021,2020,05/25/2020 COVID-19, MRNA-LNP, 23-24, P F, 30 MCG/0.3 mL, 12 YRS AND ABOVE, IM (PFIZER-Comirnaty) 12/21/2022 Pneumococcal Conjugate Vacci ne, 20-valent (Onzbukv92) 10/13/2021 Pneumococcal Polysaccharide PPV23 (Pneumovax) 04/14/2020 RSV [...] encounter Miscellaneous Notes * Telephone Encounter - Parul Todd LPN - 09/07/2023 2:36 PM EDT Home Health Start of Care Order Request: Jose Antonio BAEZA, Calling from: [facility] Patient was Admitted to: [facility], for: S/P Hip Surgery from UNKNOWN to Today Referral received for: PT and OT Planned start of care date:Yes, Date 09/10/23 Last Office Visit: 06/14/2023 Last TeleMed Visit: Visit date not found Has patient been scheduled or seen in the office for a follow up visit: Yes- on09/10/23 Advised that orders will be signed by Dr. Dougherty and to fax to the office for signature. documented in this encounter Plan of Treatment Upcoming Encounters Date Type Department Care Team (Late st Contact Info) Description 09/10/2023 9:00 AM EDT Office Visit [facility] [address] [place] [address] Berna Mack MD [address] [place] [address] 09/12/2023 10:00 AM EDT Office Visit Orthopaedics, [place] [address] [place] [address] Junior Chavez PA-C [address] [place] [address] 09/14/2023 12:30 PM EDT [facility] Visit [facility], [facility] [address] [place] [address] Megan Mata RN [address] [place] [address] 11/08/2023 9:00 AM EDT Home Visit [facility], [facility] [address] [place] [address] Tre Penny PA-C [address] [place] [address] 11/14/2023 9:00 AM EDT Office Visit Family Practice [facility] [place] [address] [facility] [place] [address] Deon Dougherty III, MD [address] [place] [address] 12/18/2023 8:30 AM EDT Office Visit Cardiology, [facility] [address] [place] [address] Los Carrizales O, DO [address] [facility] [place] [address] 03/20/2024 2:00 PM EST Laboratory Laboratory [facility] [place] [address] [place] [phone] [facility] [place] [address] [address] [facility] [place] [address] 03/27/2024 2:00 PM EST Office Visit Hematology/Oncology [facility] [place] [address] [place] [phone] Lizbeth Madison CRNP [address] [place] [address] Health Maintenance Due Date Last Done Comments Cologuard 06/16/1999 Fecal Occult Blood Test 06/16/1999 Sigmoidoscopy 06/16/1999 COVID-19 Vaccine ( season) 2023 12/21/2022, 01/25/2021, 2020, Additional history exists Diabetic Eye Exam 07/11/2023 07/10/2022, , 07/10/2022, Additional history exists HbA1c 02/08/2024 08/08/2023, 0303/2023, 11/08/2022, Additional history exists GFR 03/04/2024 09/03/2023, 08/10, 08/26/2023, Additional history exists Mammogram 04/23/2024 04/23/2023, 04/12, 04/19/2022, Additional history exists Albumin/Creatinine Ratio 05/10/2024 024, 04/17/2022, 04/15/2021, Additional history exists Diabetic Foot Exam 05/10/2024 05/11/2023, 0 04/17/2022, 04/15/2021 Depression Screening 06/07/2024 06/08/2023 CKD PHOS USE SMARTSET 44995 08/25/202408/10, 08/25/2023, 08/24/2023, Additional history exists CKD HGB USE SMARTSET 32044 09/02/202409/02, 08/27/2023, 08/26/2023, Additional history exists Colonoscopy 02/03/2025 02/03/2015, 01/11, 12/14/2006 Colorectal Cancer Screening 02/03/2025 DTaP,Tdap,and Td Vaccines (3 - Td or Tdap) 01/17/2027 01/17/2017, 11/16/2006 DXA Scan 08/14/2029 08/14/2022, 07/2022, 08/17/2020 Zoster Vaccines Completed 10/22/2017, 050 10/2017, 07/20/2015 Pneumococcal Vaccine: 65+ Years Completed 10/13/2021, 04/14/2020 Influenza Vaccine (FLU shot) Completed 02/2023, 02/28/2022, 03/07/2021, Additional history exists GARDASIL-HPV IMMUNIZATION SERIES Aged Out No longer eligible based on patient's age to complete this topic Hepatitis B Aged Out No longer eligi ble based on patient's age to complete this topic MENINGOCOCCAL (MENACTRA/MENVEO) Aged Out No longer eligible based on patient's age to complete this topic documented as of this encounter Medical Devices Implanted Type Area Support Assistant Device Identifier Shelf Expiration Date Model / Serial / Lot Valve Transcath Resilia 23mm - [id number] Implanted:Qty: 1 on 06/05/2023 by Mat Lucia MD at [facility] [place] [employer] [id number] 11/12/2023 [id number] / / Screw Bone 6.5x30mm - [id number] Implanted:Qty: 1 on 08/17/2023 by Chito Cochran MD [place] [facility] [place]: Hip ALEYDA : ORTHOPAEDICS 05/22/2028 6203-7345 / / HFF Screw Low Profile 6.3mwt94oi - [id number] Implanted:Qty: 1 on 08/17/2023 by Chito Cochran MD [place] [facility] [place]: Hip ALEYDA : ORTHOPAEDICS 03/31/2028 5180-1553 / / [id number] Implant Stem Hip Colr High 2 - [id number] Implanted:Qty: 1 on 08/17/2023 by Chito Cochran MD [place] [facility] [place]: Hip ALEYDA : ORTHOPAEDICS 03/20/2027 3959-2108 / / [id number] Hip Steven Rdz Md D 36 25 - [id number] Implanted:Qty: 1 on 08/17/2023 by Chito Cochran MD [place] [facility] [place]: Hip ALEYDA : ORTHOPAEDICS 03/19/2028 6570-0-436 / / [id number] Hip Shell Trident X3 10 36x50 - [id number] Implanted:Qty: 1 on 08/17/2023 by Chito Cochran MD [place] [facility] [place]: Hip ALEYDA : ORTHOPAEDICS 07/10/2028 763-10-36E / / [id number] Implant Hip Acetab Shell 52e - [id number] Implanted:Qty: 1 on 08/17/2023 by Chito Cochran MD [place] [facility] [place]: Hip ALEYDA : ORTHOPAEDICS 07/07/2028 709-04-52E / / [id number] 6.5mm Low Profile Hex Screw 6 - [id number] Implanted:Qty: 1 on 08/17/2023 by Chito Cochran MD at [place] [facility] [place]: Hip ALEYDA : ORTHOPAEDICS 04/24/2028 1888-7327 / / [id number] Screw Low Profile 6.6aqt61pd - [id number] Implanted:Qty: 1 on 08/17/2023 by Chito Cochran MD [place] [facility] [place]: Hip ALEYDA : ORTHOPAEDICS 04/16/2028 9325-2870 / / [id number] Implant Stem Hip Colr High 1 - [id number] Implanted:Qty: 1 on 08/17/2023 by Chito Cochran MD [place] [facility] [place]: Hip ALEYDA : ORTHOPAEDICS 12/13/2027 2143-9303 / / [id number] Hip Hd Ricardo Rdz Md D 36 25 - [id number] Implanted:Qty: 1 on 08/17/2023 by Chito Cochran MD at [place] [facility] [place]: Hip ALEYDA : ORTHOPAEDICS 01/30/2028 6570-0-436 / / [id number] Hip Shell Trident X3 10 36x50 - [id number] Implanted:Qty: 1 on 08/17/2023 by Chito Cochran MD [place] [facility] [place]: Hip ALEYDA : ORTHOPAEDICS 05/03/2028 763-10-36E / / [id number] Implant Hip Acetab Shell 52e - [id number] Implanted:Qty: 1 on 08/17/2023 by Chito Cochran MD at [place] [facility] [place]: Hip ALEYDA : ORTHOPAEDICS 06/21/2028 709-04-52E / / [id number] documented as of this encounter Advance Directives [...] Power of Attor ludmila? No Care Teams Chair Post Machine Operator Relationship Specialty Start Date End Date Deon Dougherty III, MD [address] [facility] [place], [place] [address] PCP - General 10/25/1995 documented as of this encounter
--- OUTSIDE RECORDS SUMMARY | 2023-09-22 13:22 | External Medical Summary ---
Author Name Unknown Address Unknown Organization [id number]:[facility] [place] [address] Laboratory Report Ordering Provider Test Date Status MARION DON 09/10/2023 09:55:12 Final Observation Date Value Abnormality Reference (Units ) Status SYNC LEUKOCYTES IN BLOOD BY AUTOMATED COUNT 09/10/2023 09:55:12 4.39 4.00-10.80 (K/uL) Final Segs 09/10/2023 09:55:12 42.7 40.0-75.0 (%) Final Lymphs % 09/10/2023 09:55:12 31.0 18.0-42.0 (%) Final Monos 09/10/2023 09:55:12 20.0 Above high normal 1.0-11.0 (%) Final Eosinophils 09/10/2023 09:55:12 5.2 0.0-6.0 (%) Final Basos 09/10/2023 09:55:12 1.1 0.0-2.0 (%) Final Absolute Segs 09/10/2023 09:55:12 1.87 1.80-7.70 (K/uL) Final Lymphs, absolute 09/10/2023 09:55:12 1.36 1.00-4.80 (K/ul) Final Monos, Abs 09/10/2023 09:55:12 0.88 0.00-1.10 (K/uL) Final Eos, Abs 09/10/2023 09:55:12 0.23 0.00-0.70 (K/uL) Final Basos, Abs 09/10/2023 09:55:12 0.05 0.00-0.20 (K/uL) Final Performing Location [facility] [place] [address]
--- OUTSIDE RECORDS SUMMARY | 2023-09-22 13:22 | External Medical Summary ---
Author Name Unknown Address Unknown Organization [id number][place] [place] [address] [place] [address] Laboratory Report Ordering Provider Test Date Status ARIANMARION 09/17/2023 16:21:04 Final Exclude Heart Failure: <300 pg/mL
Diagnose Heart Failure:
Age <50 yr: >450 pg/mL
50-75 yr: >900 pg/mL
>75 yr: >1800 pg/mL
GFR is 30-59 mL/min: >1200 pg/mL or Age- adjusted values
GFR <30 mL/min: do not use, not reliable

Prognostic threshold: 1000 pg/mL Observation Date Value Abnormality Reference (Units ) Status BNP, Pro-hormone 09/17/2023 16:21:04 1586 Above high no rmal <300 (pg/mL) Final Performing Location [facility] [place] [address] [place] [address]
--- OUTSIDE RECORDS SUMMARY | 2023-09-22 13:22 | External Medical Summary | Summary of Care ---
Author Name Unknown Organization [facility] Address [address] [place] [address] Phone [phone] Care Team Providers Care English Composition Instructor Name Role Phone Farhat MEEHAN MD, Deon Cerna Primary Care Provider [phone] Reason for Visit * Reason Onset Date Comments Forms Request 09/10/2023 Encounter Details Date Type Department Care Team (Late st Contact Info) Description 09/10/2023 Telephone Family Practice [facility] [address] [place] [address] Berna Mack MD [address] [place] [address] Forms Request Allergies Active Allergy Reactions Criticality Noted Date Comments Dichloralphenazone 08/15/2022 Other Reaction(s): RASH Isometheptene 08/15/2022 Other Reaction(s): RASH Midrin 07/21/1999 Red and ictchy in the face documented as of this encounter (statuses as of 09/14/2023) Medications Medication Sig Dispensed Refills Start Date [...] as of this encounter (statuses as of 09/14/2023) Active Problems Problem Noted Date Diagnosed Date Status post bilateral hip replacements Degenerative joint disease (DJD) of hip 08/17/19 24 Migraine variant 06/14/2023 Atherosclerosis of [place]ary artery without angina pectoris 06/14/2023 [...] as of this encounter (statuses as of 09/14/2023) Resolved Problems Problem Noted Date Diagnosed Date [...] as of this encounter (statuses as of 09/14/2023) Immunizations Name Administration Dates Next Due COVID-19 mRNA, LNP-s, No Pre serve, 2-Dose Series ([place]) 01/25/2021,2020,05/25/2020 COVID-19, MRNA-LNP, 23-24, P F, 30 MCG/0.3 mL, 12 YRS AND ABOVE, IM (PFIZER-Comirnaty) 12/21/2022 Pneumococcal Conjugate Vacci ne, 20-valent ([id number]) 10/13/2021 Pneumococcal Polysaccharide PPV23 (Pneumovax) 04/14/2020 RSV [...] 9:10 AM EDT Sexual Orientation Straight 07/24/2018 9 :10 AM EDT Job Start Date Occupation Industry [...] encounter Miscellaneous Notes * Telephone Encounter - Claudia Preston OSA - 09/14/2023 10:36 AM EDT Patient calling in to check on the status of previous message. Patient Called within forms 5-7 business day turnaround timeframe. Reminded patient of - policy for forms requests. Pt checking on forms please update pt pt does not have the ablity to lay flat right now and needs a hospital bed as soon as possible pt needs a script for a wheel chair and hospital bed * Telephone Encounter - Berna Mack MD [...] things to order. Please fax rx to [facility]'s homecare & then contact the pt when sent. Thank you documented in this encounter Plan of Treatment Upcoming Encounters Date Type Department Care Team (Late st Contact Info) Description 09/14/2023 12:30 PM EDT [facility] Visit [facility] [address] [address] Megan Mata RN [address] [address] 10/03/2023 12:00 PM EDT Office Visit Orthopaedics, [place] [address] [place] [address] Junior Chavez PA-C [address] [place] [address] 11/08/2023 9:00 AM EDT [facility] Visit [facility] [address] [address] Tre Penny PA-C [address] [address] 11/14/2023 9:00 AM EDT [facility] [place] [address] [facility] [address] Deon Dougherty III, MD [address] [place], [place] [address] 12/18/2023 8:30 AM EDT Office Visit Cardiology, [facility] [address] [facility] [place] [address] [place] Carriz[place] DO [address] [place] [address] 03/20/2024 2:00 PM EST Laboratory Laboratory [facility] [address] [place] [phone] [facility] [address] [facility] [place] [address] 03/27/2024 2:00 PM EST Office Visit Hematology/Oncology [facility] [address] [place] [phone] Lizbeth Madison CRNP [address] [place] [address] Health Maintenance Due Date Last Done Comments [...] Screening 06/07/2024 06/08/2023 CKD PHOS USE SMARTSET 85694 08/25/202408/10, 08/25/2023, 08/24/2023, Additional history exists CKD HGB USE SMARTSET 12743 09/09/202409/09, 09/10/2023, 09/03/2023, Additional history exists Colonoscopy 02/03/2025 02/03/2015, 01/11, 12/14/2006 Colorectal Cancer Screening 02/03/2025 DTaP,Tdap,and Td Vaccines (3 - Td or Tdap) 01/17/2027 01/17/2017, 11/16/2006 DXA Scan 08/14/2029 08/14/2022, 0607/2022, 08/17/2020 Zoster Vaccines Completed 10/22/2017, 10/2017, 07/20/2015 [...] this encounter Medical Devices Implanted Type Area Coupling Machine Operator Device Identifier Shelf Expiration Date Model / Serial / Lot Valve Transcath Resilia 23mm - [id number] Implanted:Qty: 1 on 06/05/2023 by Mat Lucia MD at [facility] [employer] [id number] 11/12/2023 [id number] / / Screw Bone 6.5x30mm - [id number] Implanted:Qty: 1 on 08/17/2023 by Chito Cochran MD [place] [facility] [place]: Hip ALEYDA : ORTHOPAEDICS 05/22/2028 [id number] / / HFF Screw Low Profile 6.9wwb83pf - [id number] Implanted:Qty: 1 on 08/17/2023 by Chito Cochran MD [place] [facility] [place]: Hip ALEYDA : ORTHOPAEDICS 03/31/2028 [id number] / / [id number] Implant Stem Hip Colr High 2 - [id number] Implanted:Qty: 1 on 08/17/2023 by Chito Cochran MD [place] [facility] [place]: Hip ALEYDA : ORTHOPAEDICS 03/20/2027 [id number] / / [id number] Hip Hd Ricardo Rdz Md D 36 25 - [id number] Implanted:Qty: 1 on 08/17/2023 by Chito Cochran MD [place] [facility] [place]: Hip ALEYDA : ORTHOPAEDICS 03/19/2028 [id number] / / [id number] Hip Shell Trident X3 10 36x50 - [id number] Implanted:Qty: 1 on 08/17/2023 by Chito Cochran MD [place] [facility] [place]: Hip ALEYDA : ORTHOPAEDICS 07/10/2028 763-10-36E / / [id number] Implant Hip Acetab Shell 52e - [id number] Implanted:Qty: 1 on 08/17/2023 by Chito Cochran MD [place] [facility] [place]: Hip ALEYDA : ORTHOPAEDICS 07/07/2028 709-04-52E / / [id number] 6.5mm Low Profile Hex Screw 6 - [id number] Implanted:Qty: 1 on 08/17/2023 by Chito Cochran MD [place] [facility] [place]: Hip ALEYDA : ORTHOPAEDICS 04/24/2028 [id number] / / [id number] Screw Low Profile 6.2ras55jr - [id number] Implanted:Qty: 1 on 08/17/2023 by Chito Cochran MD [place] [facility] [place]: Hip ALEYDA : ORTHOPAEDICS 04/16/2028 [id number] / / [id number] Implant Stem Hip Colr High 1 - [id number] Implanted:Qty: 1 on 08/17/2023 by Chito Cochran MD [place] [facility] [place]: Hip ALEYDA : ORTHOPAEDICS 12/13/2027 [id number] / / [id number] Hip Hd Ricardo Rdz Md D 36 25 - [id number] Implanted:Qty: 1 on 08/17/2023 by Chito Cochran MD [place] [facility] [place]: Hip ALEYDA : ORTHOPAEDICS 01/30/2028 [id number] / / [id number] Hip Shell Trident X3 10 36x50 - [id number] Implanted:Qty: 1 on 08/17/2023 by Chito Cochran MD [place] [facility] [place]: Hip ALEYDA : ORTHOPAEDICS 05/03/2028 763-10-36E / / [id number] Implant Hip Acetab Shell 52e - [id number] Implanted:Qty: 1 on 08/17/2023 by Chito Cochran MD [place] [facility] [place]: Hip ALEYDA : ORTHOPAEDICS 06/21/2028 709-04-52E / / [id number] documented as of this encounter Advance Directives [...] Power of Attor ludmila? No Care Teams English Composition Instructor Relationship Specialty Start Date End Date Deon Dougherty III, MD [address] [facility] [place] [address] PCP - General 10/25/1995 documented as of this encounter
--- OUTSIDE RECORDS SUMMARY | 2023-09-22 13:22 | External Medical Summary | Summary of Care ---
Author Name Unknown Organization [facility] Address [address] [place] [address] Phone [phone] Care Team Providers Care Joy Loader Name Role Phone Farhat MEEHAN MD, Deon Cerna Primary Care Provider [phone] Reason for Visit * Reason Comments [facility]: Enrollment Encounter Details Date Type Department Care Team (Late st Contact Info) Description 09/14/2023 12:30 PM EDT [facility] Visit [facility], [facility] [address] [facility] [place] [address] Megan Mata RN [address] [facility] [place] [address] Allergies Active Allergy Reactions Criticality Noted Date [...] bedtime. Active triamcinolone acetonide (ARISTOCORT) 0.1 % creamIndications :Other psoriasis APPLY TWICE DAILY DIRECTED 30 g 5 07/02/2018 Active Additional Information Patient not taking.Reported on 09/10/2023 Letrozole 2.5 MG Oral Tablet (Femara)Indicati ons:Breast carcinoma, female, right (HCC) Take 1 Tablet by mouth in the morning. 90 Tablet 3 09/25/2022 Active Amitriptyline HCl 75 MG Oral Tablet (Elavil) TAKE ONE TABLET BY MOUTH AT BEDTIME 90 Tablet 1 04/16/2023 Active Amoxicillin 500 MG Oral Capsule (Amoxil) Take 4 capsules 1 hour prior to any dental work 4 Capsule 4 06/11/2023 Active Calmoseptine 0.44-20.6 % External Ointment (Menthol-Zinc Oxide) Apply topically to affected area every 6 hours as needed for Wound Care. Apply to pressure sore on buttock. 113 g 5 07/02/2023 Active Cyclobenzaprine HCl 10 MG Oral Tablet (Flexeril)Indica tions:Migraine variant TAKE ONE TABLET BY MOUTH THREE TIMES A DAY -- IN THE MORNING , NOON, AND AT BEDTIME 270 Tablet 1 07/06/2023 5 Active Atorvastatin Calcium 80 MG Oral Tablet (Lipitor)Indicat ions:Dyslipidemi a, goal to be determined Take 1 Tablet by mouth at bedtime. 90 Tablet 3 07/09/2023 Active Nadolol 20 MG Oral Tablet (Corgard)Indicat ions:Migraine variant Take 1 Tablet by mouth at [...] 1000 MG Oral Tablet Extended Release 24 HourIndications: Abnormal blood chemistry Take 1 Tablet by mouth [...] day for 3 weeks.. 22 Tablet 09/14/2023 Active Miconazole Nitrate 2 % External Cream (Monistat Derm) Apply to Right groin(do not place on surgical wound) daily after cleansing with soap and water 28.35 g 3 09/14/2023 Active Vitamin 27-0.8 MG Oral Tablet Take 1 Tablet by mouth in the morning. 60 Tablet 08/17/2023 4 Discontinue d(Medicatio n List Clean Up) documented as of this encounter (statuses as of 09/14/2023) Active Problems Problem Noted Date Diagnosed Date Status post bilateral hip replacements Degenerative joint disease (DJD) of hip 08/17/19 Migraine variant 06/14/2023 Atherosclerosis of [place] co ronary artery without angina pectoris 06/14/2023 [...] mRNA, LNP-s, No Pre serve, 2-Dose Series ([facility]) 01/25/2021,2020,05/25/2020 COVID-19, MRNA-LNP, 23-24, P F, 30 MCG/0.3 mL, 12 YRS AND ABOVE, IM (PFIZER-Comirnaty) 12/21/2022 Pneumococcal Conjugate Vacci ne, 20-valent (Fsmbfsr26) 10/13/2021 Pneumococcal Polysaccharide PPV23 (Pneumovax) 04/14/2020 RSV [...] on file documented as of this encounter Last Filed Vital Signs Vital Sign Reading Time Taken Comments Blood Pressure 104/64 09/14/2023 11:50 AM EDT Pulse 75 09/14/2023 11:50 AM EDT Temperature 36.1 C (97 F) 09/14/2023 11:50 AM EDT Respiratory Rate 18 09/14/2023 11:50 AM EDT Oxygen Saturation 98% 09/14/2023 11:50 AM EDT Inhaled Oxygen Concentration - - Weight - - Height - - Body Mass Index - - documented in this encounter Functional Status Functional Status Response [...] No 08/17/2023 documented as of this encounter Progress Notes * Megan Mata RN - 09/14/2023 10:31 AM EDT Images from the original note were not included. 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 for PT and OT Had some issues with redness and minimal purulent drainage of right hip incision and is on course of doxycycline Had f/u with ortho on 09/11 Now doing betadine and abd dressing to right hip No issues with left hip incision - just getting betadine to the incision Wider w/c has been ordered as well as hospital bed - waiting on pcp to place orders Also has several areas on b/l buttocks ranging in different sizes - ranging from stage 1 to unstageable She has been sitting in a regular chair on a cushion since home, does not have a recliner - advisedto try to lay on cough to relieve pressure Will use calmoseptine States she has had buttocks sores in the past and has uses this before - has several tubes in the home Has been having increased edema, which has been putting strain on lower body and incisions Pt does not have a recliner in the home She cannot do stairs to get into bed so has been sleeping with legs down - does have a small stool,raised about a foot off the ground but can only stand to elevate legs on that for short periods at a times Educated on trying to lay on couch and changing positions, elevating legs while lying on cough, getting pressure off of buttocks Left hip incision has foam dressing intact. Communication Note Name: Elsa Reyes Situation: Pt seen for enrollment to [facility] Background: 68 y/o female s/p b/l hip replacements done at [facility] on 08/17/23 Assessment: Right hip incision - abd pad removed. There is redness surrounding the area. Foul/yeastsmell. White/yellow drainage. Andrew intact. Per , surgeon saw two days ago and applied betadine. There is none in the home. has just been changing abd pad. states surgeon said that if yeast does not improve to contact pcp for possible antifungal pill Recommendation: Will reach out to [facility] Spoke with BELLE Ken Ordered Diflucan x 3 weeks and Miconozole cream , can apply to groin area but not incision Instructed to cleanse area gently with mild soap and water daily and apply abd pain No powders or creams to incision Physical Exam: BP 104/64 | Pulse 75 | Temp 36.1 C (97 F) | Resp 18 | LMP 10/20/2003 | SpO2 98% Pain 0 Physical Exam Constitutional: General: She is not in acute distress. Appearance: She is obese. Cardiovascular: Rate and Rhythm: Normal rate and regular rhythm. Pulses: Normal pulses. Heart sounds: Normal heart sounds. Pulmonary: Effort: Pulmonary effort is normal. Breath sounds: Normal breath sounds. Abdominal: General: Bowel sounds are normal. Palpations: Abdomen is soft. Musculoskeletal: Right lower leg: Edema (+2) present. Left lower leg: Edema (+2) present. Skin: General: Skin is warm and dry. Neurological: Mental Status: She is alert and oriented to person, place, and time. Problems/Symptoms: Review of Systems Constitutional: Negative. Eyes: Negative. Respiratory: Negative. Cardiovascular: Positive for leg swelling. Genitourinary: Negative. Musculoskeletal: Positive for arthralgias and gait problem. Skin: Positive for wound. Psychiatric/Behavioral: Negative. Medication Reconciliation: (See medication list) Does patient take medications as ordered: Yes Patient Well Being: PHQ2/9: No questionnaires available. Pt lives in two story home with He is main caregiver Pt is staying on first floor, unable to use steps Has bathroom on first level but no shower NO falls is past 6 months No pets in the home [facility] Completed this Visit: Yes. [facility]: Reason Completed: Enrollment [facility] ([facility]) Fall Risk Assessment Tool Age 65+: Yes (09/14/231199) Diagnosis (3 or more co-existing): Yes (09/14/231199) Prior history of falls within 3 months: No (09/14/231199) Incontinence: Yes (09/14/231199) Visual impairment: No (09/14/231199) Impaired functional mobility: Yes (09/14/231199) Environmental hazards: No (09/14/231199) Poly Pharmacy (4 or more prescriptions - any type): Yes (09/14/231199) Pain affecting level of function: No (09/14/231199) Cognitive impairment: No (09/14/231199) Score - a score of 4 or more is considered at risk for fallin (09/14/23 1200) [facility] Interventions: Fall education provided, reviewed/provided Fall brochure Advanced Care Planning: No documentation, acp in progress. Patient's Goals of Care: Walk normally Be able to use the stairs Bathe myself Reinforcement/Education: Educated on home safety: Create a fall proof home Clear floors of clutter, loose wires, throw rugs, and cords. Make sure halls, stairways, and entrances are well lit. Install a nightlight in your bedroom, hallway and bathroom. Install grab bars or handrails in the bathroom and on stairs. Use a non-skid tub/shower mat. Avoid climbing on a chair; instead use a step stool with a high handrail. Keep sidewalks and steps in good repair Keep steps and sidewalks free of snow and ice. Using aids to support and prevent falls If you have poor balance or have fallen in the past, consider additional support such as a cane or walker. Use a cane with good support and that is the proper length for you. Use a walker if a cane doesnt provide enough support. Avoid medications that increase the risk of falling by causing dizziness, change in sensation or slowed reflexes. Certain medicines may cause falls - blood pressure pills, heart medicines, water pills, or sleepingpills. Be sure to understand each medicine that you are taking and any side effects that may occur. Improve your balance and flexibility with muscle strengthening exercises. Ask your health care provider for some exercises that will be right for you. Reinforced safety education and fall prevention. and Reinforced medication regimen. Timing., Dosing., and Purspose. Treatment/Plan: Continue meds as prescribed/reviewed APAP prn mild to mod pain Oxycodone prn severe pain Fall precautions - use roller walker at all times Left hip incision - dressing to stay intact, to be removed at ortho appt 10/02 Right hip incision - gently cleanse with soap and water daily and apply new abd bandage Diflucan ordered for yeast infection of incision Complete entire course of abx Calmoseptine to buttocks bid Elevate LE as much as possible - use couch until hospital bed comes Frequent repositioning Home Interventions Provided: Home Intervention: Wound Care and Other; eval Consulted PCP/Specialist Reinforced current Plan of Care, including self-management and medication regimen Updated Exacerbation Plan Patient's 'Red Flags': Increased pain, redness, drainage, warmth of incisions Fever/chills Increased edema Patient Needs to Remember: Call [facility] at with any new or worsening health concerns or problems, red flag symptoms. Referrals Needed: Other none Follow Up: Is there cellular connectivity/connectivity in the home? Yes Does the patient have internet in the home? Yes Patient encouraged to call the intake phone number for all urgent but not emergent issues. Is the patient new to [facility] within the last 30 days? Yes, Is this a Transitions of Care visit? Yes, this is the 2nd visit or later, Yes cellular connectivity. Was their Readmission Risk Score less than 18%? Yes Does the patient have any active signs of an exacerbation? No Has the patient had any ED visits since being discharged? No, Please forward to [employer] for telehealth scheduling, and indicate appropriate week of Transition of Care. Provider is in agreement with Plan of Care: Yes Scheduled to follow up with patient in 2 weeks with RNCM, 3 weeks with provider. Megan Mata RN 09/14/2023 10:31 AM documented in this encounter Plan of Treatment Upcoming Encounters Date Type Department Care Team (Late st Contact Info) Description 09/27/2023 8:30 AM EDT [facility] Visit [facility] [address] [place] [address] Megan Mata RN [address] [place], [place] [address] [address] 10/03/2023 12:00 PM EDT Office Visit [facility], [place] [address] [place] [address] Junior Chavez PA-C [address] [place] [address] 11/08/2023 9:00 AM EDT [facility] [address] [facility] [place] [address] Tre Penny PA-C [address] [place] [address] 11/14/2023 9:00 AM EDT Office Visit Family Practice [facility] [address] [place] [address] Deon Dougherty III, MD [address] [facility] [place] [address] 12/18/2023 8:30 AM EDT Office Visit Cardiology, [facility] [address] [place] [address] Los Carrizales DO [address] [place] [address] 03/20/2024 2:00 PM EST Laboratory Laboratory [facility] [address] [place] [id number] [facility] [address] [facility] [place] [address] 03/27/2024 2:00 PM EST Office Visit Hematology/Oncology [facility] [address] [facility] [place] [phone] Lizbeth Madison CRNP [address] [facility] [place] [address] Health Maintenance Due Date Last Done Comments [...] Screening 06/07/2024 06/08/2023 CKD PHOS USE SMARTSET 59395 08/25/202408/10, 08/25/2023, 08/24/2023, Additional history exists CKD HGB USE SMARTSET 26576 09/09/202409/09, 09/10/2023, 09/03/2023, Additional history exists Colonoscopy 02/03/2025 02/03/2015, 01/11, 12/14/2006 Colorectal Cancer Screening 02/03/2025 DTaP,Tdap,and Td Vaccines (3 - Td or Tdap) 01/17/2027 01/17/2017, 11/16/2006 DXA Scan 08/14/2029 08/14/2022, 060 07/2022, 08/17/2020 Zoster Vaccines Completed 10/22/2017, 050 [...] this encounter Medical Devices Implanted Type Area [employer]or Device Identifier Shelf Expiration Date Model / Serial / Lot Valve Transcath Resilia 23mm - [id number] Implanted:Qty: 1 on 06/05/2023 by Mat Lucia MD at CARDIAC LABS [facility] [employer] [id number] 11/12/2023 [id number] / / Screw Bone 6.5x30mm - [id number] Implanted:Qty: 1 on 08/17/2023 by Chito Cochran MD at OR [facility] Right: Hip ALEYDA : ORTHOPAEDICS 05/22/2028 [id number] / / HFF Screw Low Profile 6.9bfs64ba - [id number] Implanted:Qty: 1 on 08/17/2023 by Chito Cochran MD at OR [facility] Right: Hip ALEYDA : ORTHOPAEDICS 03/31/2028 [id number] / / [id number] Implant Stem Hip Colr High 2 - [id number] Implanted:Qty: 1 on 08/17/2023 by Chito Cochran MD at OR [facility] Right: Hip ALEYDA : ORTHOPAEDICS 03/20/2027 [id number] / / [id number] Hip Hd Ricardo Rdz Md D 36 25 - [id number] Implanted:Qty: 1 on 08/17/2023 by Chito Cochran MD at OR [facility] Right: Hip ALEYDA : ORTHOPAEDICS 03/19/2028 [id number] / / [id number] Hip Shell Trident X3 10 36x50 - [id number] Implanted:Qty: 1 on 08/17/2023 by Chito Cochran MD at OR [facility] Left: Hip ALEYDA : ORTHOPAEDICS 07/10/2028 763-10-36E / / [id number] Implant Hip Acetab Shell 52e - [id number] Implanted:Qty: 1 on 08/17/2023 by Chito Cochran MD at OR [facility] Left: Hip ALEYDA : ORTHOPAEDICS 07/07/2028 709-04-52E / / [id number] 6.5mm Low Profile Hex Screw 6 - [id number] Implanted:Qty: 1 on 08/17/2023 by Chito Cochran MD at OR [facility] Left: Hip ALEYDA : ORTHOPAEDICS 04/24/2028 1149-0390 / / [id number] Screw Low Profile 6.0shr41aa - [id number] Implanted:Qty: 1 on 08/17/2023 by Chito Cochran MD at OR [facility] Left: Hip ALEYDA : ORTHOPAEDICS 04/16/2028 [id number] / / [id number] Implant Stem Hip Colr High 1 - [id number] Implanted:Qty: 1 on 08/17/2023 by Chito Cochran MD at OR [facility] Left: Hip ALEYDA : ORTHOPAEDICS 12/13/2027 [id number] / / [id number] Hip Hd Ricardo Rdz Md D 36 25 - [id number] Implanted:Qty: 1 on 08/17/2023 by Chito Cochran MD at OR [facility] Left: Hip ALEYDA : ORTHOPAEDICS 01/30/2028 [id number] / / [id number] Hip Shell Trident X3 10 36x50 - [id number] Implanted:Qty: 1 on 08/17/2023 by Chito Cochran MD at OR [facility] Right: Hip ALEYDA : ORTHOPAEDICS 05/03/2028 763-10-36E / / [id number] Implant Hip Acetab Shell 52e - [id number] Implanted:Qty: 1 on 08/17/2023 by Chito Cochran MD at OR [facility] Right: Hip ALEYDA : ORTHOPAEDICS 06/21/2028 709-04-52E / / [id number] documented as of this encounter Advance Directives [...] Power of Attor ludmila? No Care Teams Joy Loader Relationship Specialty Start Date End Date C[place] III, Deon Cerna MD [address] [place] [address] PCP - General 10/25/1995 documented as of this encounter"
--- OUTSIDE RECORDS SUMMARY | 2023-09-22 13:22 | External Medical Summary ---
Author Name Unknown Address Unknown Organization K09[facility] [place] [address] Laboratory Report Ordering Provider Test Date Status MARION DON 09/10/2023 09:55:12 Final Observation Date Value Abnormality Reference (Units ) Status BUN 09/10/2023 09:55:12 21 Above high normal 6-20 (mg/dL) Final Creatinine 09/10/2023 09:55:12 0.9 0.5-1.0 (mg/dL) Final Glomerular filtration rate/1.73 sq M.predicted [Volume Rate/Area] in Serum, Plasma or Blood by Creatinine-based formula (CKD-EPI) 09/10/2023 09:55:12 69 >=60 (mL/min) Final eGFR is calculated based on the CKD-EPI 2020 equation Sodium 09/10/2023 09:55:12 137 135-146 (m mol/L) Final Potassium 09/10/2023 09:55:12 4.2 3.5-5.1 (m mol/L) Final Cl 09/10/2023 09:55:12 106 98-107 (mm ol/L) Final CO2 09/10/2023 09:55:12 21 Below low normal 22- 32 (mmol/L) Final Anion gap 09/10/2023 09:55:12 10 7-15 (mmol /L) Final Glucose 09/10/2023 09:55:12 82 70-120 (mg /dL) Final Calcium 09/10/2023 09:55:12 8.6 8.4-10.2 ( mg/dL) Final Performing Location [facility] [place] [address]
--- OUTSIDE RECORDS SUMMARY | 2023-09-22 13:22 | External Medical Summary | Summary of Care ---
Author Name Unknown Organization [facility] Address [address] [place] [address] Phone [phone] Care Team Providers Care Therapist'S Assistant Name Role Phone Farhat MEEHAN MD, Deon Cerna Primary Care Provider [phone] Reason for Visit * Reason Comments Post-Op Bilateral total hip on 08/17/2023 Encounter Details Date Type Department Care Team (Latest Contact Info) Description 09/12/2023 10:00 AM EDT [facility] [address], [place] [phone] Junior Chavez PA-C [address], [place] [phone] Aftercare following surgery of the musculoskeletal system* Allergies Active Allergy Reactions Criticality Noted Date Comments Dichloralphenazone 08/15/2022 Other Reaction(s): RASH Isometheptene 08/15/2022 Other Reaction(s): RASH Midrin 07/21/1999 Red and ictchy in the face documented as of this encounter (statuses as of 09/12/2023) Medications Medication Sig Dispensed Refills Start Date [...] as of this encounter (statuses as of 09/12/2023) Active Problems Problem Noted Date Diagnosed Date Status post bilateral hip replacements Degenerative joint disease (DJD) of hip 08/17/19 24 Migraine variant 06/14/2023 Atherosclerosis of [place] ronary artery without angina pectoris 06/14/2023 [...] as of this encounter (statuses as of 09/12/2023) Resolved Problems Problem Noted Date Diagnosed Date [...] as of this encounter (statuses as of 09/12/2023) Immunizations Name Administration Dates Next Due COVID-19 mRNA, LNP-s, No Pre serve, 2-Dose Series (Pfizer) 01/25/2021,2020,05/25/2020 COVID-19, MRNA-LNP, 23-24, P F, 30 MCG/0.3 mL, 12 YRS AND ABOVE, IM (PFIZER-Comirnaty) 12/21/2022 Pneumococcal Conjugate Vacci ne, 20-valent ([id number]) 10/13/2021 Pneumococcal Polysaccharide PPV23 (Pneumovax) 04/14/2020 RSV [...] as of this encounter Progress Notes * Junior Chavez PA-C - 09/12/2023 10:00 AM EDT Orthopaedic Post-op Total Joint Arthroplasty Clinic Note 09/12/2023 Name: Elsa Reyes Patient is a 68 year old, female presenting to clinic s/p bilateral total hip replacement, lateral approach by Dr. Cochran on OR date: 08/17/2023. [facility] Sunday. Back home. In home PT coming into. [facility] showered and took off bandage. Cover did not work and bandage came off the next day. Bandages rubbing with wheel chair. Working with PCP to get hospital bed and wider chair. Submitted paper work. Implants: aleyda Interval history: 3.5 weeks DVT Prophylaxis: ASA 81 mg BID Physical Therapy: in-home Ambulation Assessment: Ambulates with an Assistive Device Ability to do stairs: unable Jonathan Mobility Scoring: Able to walk inside the house? Alone with an assistive device (2 points) Able to walk outside the house? Alone with an assistive device (2 points) Able to go shopping, to a restaurant or to visit family? Alone with an assistive device (2 points) Smoking cessation discussed? The patient is a current nonsmoker; smoking cessation is not indicated. PE: LMP 10/20/2003 CONSTITUTIONAL State of Health: well Level of consciousness: alert Distress: none Build: obese NEURO: oriented to self, place, and time PSYCH: normal mood and affect MUSCULOSKELETAL GAIT: antalgic, uses a walker Wound Check dry/intact Right hip, erythema, incision: no exudate, some edema, abd and betadine per Dr. Cochran Left hip: no erythema, edema or exudate, replace aquacel with betadine per Dr. Cochran Imaging: PO ordered but did not get in PACU? Assessment/plan: 68 year old, female s/p bilateral total hip replacement, lateral approach by Dr. Cochran on OR date: 08/17/2023. - right hip redness, seen by Dr. Cochran. Recommend ABD. Not draining. Discussed if redness continues may need to check with yeast but not creams, topicals. May need a pill. Taking doxycycline. - Keep incision dry until seen back. - Continue ASA 81 BID x 8 weeks - OxyIR one a day. Not taking tylenol. Discussed 1000 mg every 8 hours - Take an antibiotic 1 hour before dental appointment for procedures. No appointment within 6 months of surgery. Does not need for routine cleanings. - Working to get hospital bed and wider chair. Is rubbing. Recommend wider chair they are trying toget through PCP and bed with not being able to recline - Start tylenol 1000mg TID - Stop compression stockings. - Some redness right inner fold. If gets worse, reach out -F/U 3 weeks Junior Chavez PA-C 09/12/2023 11:[address] [address] documented in this encounter Plan of Treatment Upcoming Encounters Date Type Department Care Team (Late st Contact Info) Description 09/14/2023 12:30 PM EDT [facility] Visit [facility] [address] [address] Megan Mata, RN [address] [address] 10/03/2023 12:00 PM EDT Office Visit [address] [address] Junior Chavez PA-C [address] [place] [address] 11/08/2023 9:00 AM EDT Home Visit [facility] [place] [address] [facility] [place] [address] Tre Penny PA-C [address] [place] [address] 11/14/2023 9:00 AM EDT Office Visit Family Practice [facility] [address] [place] [address] Deon Dougherty III, MD 200 [facility] [place] [address] 12/18/2023 8:30 AM EDT Office Visit Cardiology, [facility] [address] [facility] [place] [address] Los Carrizales, DO [facility] [address] 03/20/2024 2:00 PM EST Laboratory Laboratory [facility] [address] [place] [phone] [facility] [address] [place] [address] 03/27/2024 2:00 PM EST Office Visit Hematology/Oncology [facility] 200 [facility] [place] [phone] Lizbeth Madison CRNP 400 [facility] [place] [id number] Health Maintenance Due Date Last Done Comments [...] Screening 06/07/2024 06/08/2023 CKD PHOS USE SMARTSET 17385 08/25/202408/10, 08/25/2023, 08/24/2023, Additional history exists CKD HGB USE SMARTSET 61530 09/09/202409/09, 09/10/2023, 09/03/2023, Additional history exists Colonoscopy 02/03/2025 02/03/2015, 01/11, 12/14/2006 Colorectal Cancer Screening 02/03/2025 DTaP,Tdap,and Td Vaccines (3 - Td or Tdap) 01/17/2027 01/17/2017, 11/16/2006 DXA Scan 08/14/2029 08/14/2022, 0607/2022, 08/17/2020 Zoster Vaccines Completed 10/22/2017, 050 10/2017, [...] this encounter Medical Devices Implanted Type Area Easter Bunny Device Identifier Shelf Expiration Date Model / Serial / Lot Valve Transcath Resilia 23mm - [id number] Implanted:Qty: 1 on 06/05/2023 by Mat Lucia MD at [facility] Dweho [id number] 11/12/2023 [id number] / / Screw Bone 6.5x30mm - [id number] Implanted:Qty: 1 on 08/17/2023 by Chito Cochran MD at OR [facility] Right: Hip ALEYDA : ORTHOPAEDICS 05/22/2028 0400-1336 / / HFF Screw Low Profile 6.1gpf06bj - [id number] Implanted:Qty: 1 on 08/17/2023 by Chito Cochran MD at OR [facility] Right: Hip ALEYDA : ORTHOPAEDICS 03/31/2028 0987-1514 / / [id number] Implant Stem Hip Colr High 2 - [id number] Implanted:Qty: 1 on 08/17/2023 by Chito Cochran MD at OR [facility] Right: Hip ALEYDA : ORTHOPAEDICS 03/20/2027 8858-1112 / / [id number] Hip Hd Ricardo Rdz Md D 36 25 - [id number] Implanted:Qty: 1 on 08/17/2023 by Chito Cochran MD at OR [facility] Right: Hip ALEYDA : ORTHOPAEDICS 03/19/2028 6570-0-436 / / [id number] Hip Shell Trident X3 10 36x50 - [id number] Implanted:Qty: 1 on 08/17/2023 by Chito Cochran MD at OR [facility] Left: Hip ALEYDA : ORTHOPAEDICS 07/10/2028 763-10-36E / / [id number] Implant Hip Acetab Shell 52e - [id number] Implanted:Qty: 1 on 08/17/2023 by Chito Cochran MD at OR [facility] Left: Hip ALEYDA : ORTHOPAEDICS 07/07/2028 709-04-52E / / [id number] 6.5mm Low Profile Hex Screw 6 - [id number] Implanted:Qty: 1 on 08/17/2023 by Chito Cochran MD at OR [facility] Left: Hip ALEYDA : ORTHOPAEDICS 04/24/2028 1327-3496 / / [id number] Screw Low Profile 6.7too06qo - [id number] Implanted:Qty: 1 on 08/17/2023 by Chito Cochran MD at OR [facility] Left: Hip ALEYDA : ORTHOPAEDICS 04/16/2028 [id number] / / [id number] Implant Stem Hip Colr High 1 - [id number] Implanted:Qty: 1 on 08/17/2023 by Chito Cochran MD at OR [facility] Left: Hip ALEYDA : ORTHOPAEDICS 12/13/2027 7640-8756 / / [id number] Hip Hd Ricardo Rdz Md D 36 25 - [id number] Implanted:Qty: 1 on 08/17/2023 by Chito Cochran MD at OR [facility] Left: Hip ALEYDA : ORTHOPAEDICS 01/30/2028 6570-0-436 / / [id number] Hip Shell Trident X3 10 36x50 - [id number] Implanted:Qty: 1 on 08/17/2023 by Chito Cochran MD at OR [facility] Right: Hip ALEYDA : ORTHOPAEDICS 05/03/2028 763-10-36E / / [id number] Implant Hip Acetab Shell 52e - [id number] Implanted:Qty: 1 on 08/17/2023 by Chito Cochran MD at OR [facility] Right: Hip ALEYDA : ORTHOPAEDICS 06/21/2028 709-04-52E / / [id number] documented as of this encounter Visit Diagnoses Diagnosis Aftercare following surgery of the musculoskeletal system- Primary Aftercare following surgery of the musculoskeletal system, NEC documented in this encounter Advance Directives * [...] Power of Attor ludmila? No Care Teams Therapist'S Assistant Relationship Specialty Start Date End Date Deon Dougherty III, MD [address] [facility] [place] [address] PCP - General 10/25/1995 documented as of this encounter
--- OUTSIDE RECORDS SUMMARY | 2023-09-22 13:22 | External Medical Summary | Summary of Care ---
Author Name Unknown Organization [facility] Address [address] [place] [address] Phone [phone] Care Team Providers Care Catalogue Maker Name Role Phone Farhat MEEHAN MD, Deon Cerna Primary Care Provider [phone] Reason for Visit * Reason Onset Date Comments Hospital Follow-Up Hospital Follow-Up 09/10/2023 Encounter Details Date Type Department Care Team (Late st Contact Info) Description 09/10/2023 9:00 AM EDT Office Visit [facility] [address] [place] [address] Berna Mack MD [address] [place] [address] Hospital discharge follow-up*; S/P bilateral hip replacements; Acute blood loss anemia; Hypotension due to hypovolemia; Diabetes mellitus without complication (HCC); HTN, goal below 140/90; Conduction disorder of the heart; S/P TAVR (transcatheter aortic valve replacement); Class 2 severe obesity due to excess calories with serious comorbidity and body mass index (BMI) of 38.0 to 38.9 in adult (HCC) Allergies Active Allergy Reactions Criticality Noted Date [...] hip 08/17/19 Migraine variant 06/14/2023 Atherosclerosis of [place] co ronary artery without angina pectoris 06/14/2023 [...] (PFIZER-Comirnaty) 12/21/2022 Pneumococcal Conjugate Vacci ne, 20-valent ([id number]) 10/13/2021 Pneumococcal Polysaccharide PPV23 (Pneumovax) 04/14/2020 RSV [...] Sign Reading Time Taken Comments Blood Pressure 100/58 09/10/2023 8:57 AM EDT Pulse 76 09/10/2023 8:57 AM EDT Temperature 36.6 C (97.9 F) 09/10/2023 8:57 AM ED T Respiratory Rate 16 09/10/2023 8:57 AM EDT Oxygen Saturation 92% 09/10/2023 8:57 AM EDT Inhaled Oxygen Concentration - - [...] as of this encounter Progress Notes * Berna Mack MD - 09/10/2023 8:57 AM EDT Subjective Chief Complaint Patient presents with Hospital Follow-Up Hospital Follow-Up HPI: Elsa Reyes is a 68 year old female. The following issues were addressed today: Date of admission: 08/17/23 Date of discharge: 08/26/23 (hospital), 09/07/23 ([facility]) Hospital course: Patient was admitted to [facility] for elective bilateral hip replacements from home. Shewas noted to have a drop in blood pressure during and following the surgery and a drop in hemoglobin and was ordered 2 units PRBCs immediately after the surgery. She was admitted to the CICU due to pressor requirements. She required 2 additional blood transfusions while in the ICU and had hemoglobin remaining stable following. Was able to be weaned off the pressor support while maintaining MAP >65. She was given diuresis while admitted due to becoming volume up from the transfusions and fluids. Of note, patient was started on doxycyline immediately post op and to continue for 6 week duration. Deemed stable for discharge to acute rehab. Tests/studies pending at time of discharge: None Home/outpatient services ordered: Home PT Course since hospitalization: Patient presents today with her . She has been home from [facility] since Sunday. She states while at [facility] they bathed her and her right dressing got wet and has come off. Having a lot of redness around the incision site on that side. Minimal purulent drainage has soaked the dressing. Left side looks good. She denies fever or chills. She is eating and drinking well. Moving her bowels normally. Has first session of PT this afternoon at home. Does note increased swelling in her legs bilaterally that does not improve much with elevation. She is wearing knee-high compression stockings. Denies chest pain or shortness of breath. Review of Systems: See HPI Objective BP 100/58 | Pulse 76 | Temp 36.6 C (97.9 F) (Tympanic) | Resp 16 | LMP 10/20/2003 | SpO2 92% Wt Readings from Last 3 Encounters: 08/26/23 87.5 kg (192 lb 14.4 oz) 08/08/23 78 kg (172 lb) 07/09/23 81.6 kg (180 lb) BP Readings from Last 3 Encounters: 09/10/23 100/58 08/26/23 104/64 08/14/23 106/72 General: Well-appearing, no acute distress Cardiovascular: Regular rate and rhythm, no murmur Respiratory: Good respiratory effort, breath sounds equal and clear to auscultation bilaterally Abdomen: Soft, non-distended, non-tender, normoactive bowel sounds Extremities: Non-pitting edema of bilateral lower extremities Skin: Left anterior hip incision clean, dry, and intact; right incision is intact, scant purulent drainage at top of incision, surrounding erythema without significant edema or warmth Neurological: Alert and oriented Psychiatric: Appropriate mood and affect Assessment & Plan 1. Hospital discharge follow-up - DISCH MED RECON CUR MED LIS 2. S/P bilateral hip replacements Dr. Cochran updated via [employer] regarding loss of right-sided wound dressing and appearance of incision. Area was swabbed with betadine and dressed with silicone gel adhesive silver wound dressing.Tegaderm applied to secure dressing. Advised not to get dressings wet or remove them. She has follow-up with orthopedic surgery scheduled on 09/12/23. Continue doxycycline as prescribed. 3. Acute blood loss anemia Patient is s/p 4 units PRBCs. Updated CBC today. - CBC WITH WBC DIFFERENTIAL; Future 4. Hypotension due to hypovolemia - BASIC METABOLIC PANEL; Future 5. Diabetes mellitus without complication (HCC) Well-controlled. Continue current medication(s). 6. HTN, goal below 140/90 Stable. 7. Conduction disorder of the heart 8. S/P TAVR (transcatheter aortic valve replacement) Stable. 9. Class 2 severe obesity due to excess calories with serious comorbidity and body mass index (BMI)of 38.0 to 38.9 in adult (HCC) Follow Up: Return for follow-up as scheduled or sooner as needed. This note was electronically signed by Berna Mack MD documented in this encounter Nursing Notes * Little Mccain LPN - 09/10/2023 8:53 AM EDT Elsa Reyes presents for hospital follow up. Medications & HM reviewed. Legs are very swollen from waste down. Does not change with elevation. states the ankles were a little swollen [facility] but when she got home Sunday everything got worse Would like dressing looked at for incision as it is from the skin. Is also developing a rash under abdominal fold near incision site. documented in this encounter Plan of Treatment Upcoming Encounters Date Type Department Care Team (Late st Contact Info) Description 09/12/2023 10:00 AM EDT Office Visit Orthopaedics[address] [address] Junior Chavez PA-C [address] [place] [address] 09/14/2023 12:30 PM EDT [facility] [address] Megan Mata RN [address] [place] [address] 11/08/2023 9:00 AM EDT Home Visit [facility] 132 [facility] [place] [address] Tre Penny PA-C [address] [place] [address] 11/14/2023 9:00 AM EDT Office Visit Family Practice [facility] [address] [place] [address] Deon Dougherty III, MD [address] [place] [address] 12/18/2023 8:30 AM EDT Office Visit Cardiology, [facility] 132 [facility] [place] [address] Los Carrizales O, DO 132 [facility] [place] [address] 03/20/2024 2:00 PM EST Laboratory Laboratory [facility] [address] [place] [phone] [facility] [address] [facility] [place] [address] 03/27/2024 2:00 PM EST Office Visit Hematology/Oncology [facility] [address] [place] [phone] Lizbeth Madison CRNP [address] [place] [address] Health Maintenance Due Date Last Done Comments [...] Screening 06/07/2024 06/08/2023 CKD PHOS USE SMARTSET 47832 08/25/202408/10, 08/25/2023, 08/24/2023, Additional history exists CKD HGB USE SMARTSET 14304 09/09/202409/09, 09/10/2023, 09/03/2023, Additional history exists Colonoscopy [...] this encounter Medical Devices Implanted Type Area Drywall Hanger Helper Device Identifier Shelf Expiration Date Model / Serial / Lot Valve Transcath Resilia 23mm - [id number] Implanted:Qty: 1 on 06/05/2023 by Mat Lucia MD at [facility] [employer] [id number] 11/12/2023 [id number] / / Screw Bone 6.5x30mm - [id number] Implanted:Qty: 1 on 08/17/2023 by Chito Cochran MD at OR [facility] Right: Hip ALEYDA : ORTHOPAEDICS 05/22/2028 8397-5253 / / HFF Screw Low Profile 6.6xcq59fj - [id number] Implanted:Qty: 1 on 08/17/2023 by Chito Cochran MD at OR [facility] Right: Hip ALEYDA : ORTHOPAEDICS 03/31/2028 1328-5333 / / [id number] Implant Stem Hip Colr High 2 - [id number] Implanted:Qty: 1 on 08/17/2023 by Chito Cochran MD at OR [facility] Right: Hip ALEYDA : ORTHOPAEDICS 03/20/2027 2392-9911 / / [id number] Hip Steven Rdz Md D 36 25 - [id number] Implanted:Qty: 1 on 08/17/2023 by Chito Cochran MD at OR [facility] Right: Hip ALEYDA : ORTHOPAEDICS 03/19/2028 6570-0-436 / / [id number] Hip Shell Trident X3 10 36x50 - [id number] Implanted:Qty: 1 on 08/17/2023 by Chito Cochran MD at OR [facility] Left: Hip ALEYDA : ORTHOPAEDICS 07/10/2028 763-10-36E / / [id number] Implant Hip Acetab Shell 52e - [id number] Implanted:Qty: 1 on 08/17/2023 by Chito Cochran MD at OR [facility] Left: Hip ALEYDA : ORTHOPAEDICS 07/07/2028 709-04-52E / / [id number] 6.5mm Low Profile Hex Screw 6 - [id number] Implanted:Qty: 1 on 08/17/2023 by Chito Cochran MD at OR [facility] Left: Hip ALEYDA : ORTHOPAEDICS 04/24/2028 0407-7718 / / [id number] Screw Low Profile 6.3mrx99bj - [id number] Implanted:Qty: 1 on 08/17/2023 by Chito Cochran MD at OR [facility] Left: Hip ALEYDA : ORTHOPAEDICS 04/16/2028 0656-5912 / / [id number] Implant Stem Hip Colr High 1 - [id number] Implanted:Qty: 1 on 08/17/2023 by Chito Cochran MD at OR [facility] Left: Hip ALEYDA : ORTHOPAEDICS 12/13/2027 9427-7163 / / [id number] Hip Hd Ricardo Rdz Md D 36 25 - [id number] Implanted:Qty: 1 on 08/17/2023 by Chito Cochran MD at OR [facility] Left: Hip ALEYDA : ORTHOPAEDICS 01/30/2028 6570-0-436 / / [id number] Hip Shell Trident X3 10 36x50 - [id number] Implanted:Qty: 1 on 08/17/2023 by Chito Cochran MD at OR [facility] Right: Hip ALEYDA : ORTHOPAEDICS 05/03/2028 763-10-36E / / [id number] Implant Hip Acetab Shell 52e - [id number] Implanted:Qty: 1 on 08/17/2023 by Chito Cochran MD at OR [facility] Right: Hip ALEYDA : ORTHOPAEDICS 06/21/2028 709-04-52E / / [id number] documented as of this encounter Results * (ABNORMAL) BASIC METABOLIC PANEL (09/10/2023 9:55 AM EDT) BUN 21(H) 6 - 20 mg/dL 09/10/2023 11:19 AM EDT [facility] 56- Creatinine 0.9 0.5 - 1.0 mg/dL 09/10/2023 11:19 AM EDT [facility] 56 Estimated Glomerular Filtration Rate 69 >=60 mL/min 09/10/2023 11:19 AM EDT [facility] 56- Comment:eGFR is calculated b ased on the CKD-EPI 2020 equation Sodium 137 135 - 146 mmol/L 09/10/2023 11:19 AM EDT [facility] 56- Potassium 4.2 3.5 - 5.1 mmol/L 09/10/2023 11:19 AM EDT [facility] 56- Chloride 106 98 - 107 mmol/L 09/10/2023 11:19 AM EDT [facility] 56- CO2 21(L) 22 - 32 mmol/L 09/10/2023 11:19 AM EDT [facility] 56- Anion Gap 10 7 - 15 mmol/L 09/10/2023 11:19 AM EDT [facility] 56- Glucose 82 70 - 120 mg/dL 09/10/2023 11:19 AM EDT [facility] 56- Calcium 8.6 8.4 - 10.2 mg/dL 09/10/2023 11:19 AM EDT [facility] 56- Blood Venous blood specimen / Unknown Venipuncture / Unknown 09/10/2023 9:55 AM EDT 09/10/2023 9:55 AM EDT Berna Mack MD LAB BLOOD ORDERABLES [facility] [address] [place] [address] documented in this encounter Visit Diagnoses Diagnosis Hospital discharge follow-up- Primary Other follow-up examination S/P bilateral hip replacements Hip joint replacement by other means Acute blood loss anemia Acute posthemorrhagic anemia Hypotension due to hypovolemia Diabetes mellitus without complication ([facility]) Type II or unspecified type diabetes mellitus without mention of complication, not stated as uncontrolled HTN, goal below 140/90 Unspecified essential hypertension Conduction disorder of the heart Conduction disorder, unspecified S/P TAVR (transcatheter aortic valve replacement) Heart valve replaced by other means Class 2 severe obesity due to excess calories with serious comorbidity and body mass index (BMI) of 38.0 to 38.9 in adult (HCC) documented in this encounter Advance Directives * [...] Power of Attor ludmila? No Care Teams Catalogue Maker Relationship Specialty Start Date End Date Deon Dougherty III, MD [address] [place] [address] PCP - General 10/25/1995 documented as of this encounter"
--- OUTSIDE RECORDS SUMMARY | 2023-09-22 13:22 | External Medical Summary | Summary of Care ---
Author Name Unknown Organization [facility] Address [address] [place] [address] Phone [phone] Care Team Providers Care Potato Seed Cutter Name Role Phone Farhat MEEHAN MD, Deon Cerna Primary Care Provider [phone] Reason for Visit * Reason Onset Date Comments Advice 09/17/2023 Encounter Details Date Type Department Care Team (Late st Contact Info) Description 09/17/2023 Telephone Family Practice [facility] [address] [place] [address] Deon Dougherty III, MD [address] [place] [address] Advice Allergies Active Allergy Reactions Criticality Noted [...] 08/17/19 24 Migraine variant 06/14/2023 Atherosclerosis of [place] co ronary artery without angina pectoris 06/14/2023 [...] (PFIZER-Comirnaty) 12/21/2022 Pneumococcal Conjugate Vacci ne, 20-valent ([id number]) 10/13/2021 Pneumococcal Polysaccharide PPV23 (Pneumovax) 04/14/2020 RSV [...] EDT HH Concerns Jesse OT, Calling from: [facility] Report/Concerns of: increased swelling and cough Symptoms: [...] No redness or warm. Bilat hip pain 5/10 she is taking tylenol. Pt is elevating legs. Please advise She also developed a new cough over the weekend. Cough is productive with green phlegm. She has sinus congestion, a scratchy throat. No fever. She is taking Dylsum and Claritin but it doesn't controlcough. Please advise. Call back Elsa with any advice or orders at [phone] * Telephone Encounter - Little Epperson OSA [...] 8:30 AM EDT Home Visit [facility] at [facility] [address] [address] Megan Mata RN [address] [place] [address] 10/03/2023 12:00 PM EDT Office Visit Orthopaedics, [place] [address] [place] [address] Junior Chavez PA-C [address] [place] [address] 11/08/2023 9:00 AM EDT Home Visit [facility] at [facility] [address] [address] Tre Penny PA-C [address] [address] 11/14/2023 9:00 AM EDT Office Visit [facility] 200 [facility] [place] [address] Deon Dougherty III, MD 200 [facility] [place] [address] 12/18/2023 8:30 AM EDT Office Visit Cardiology, [facility] [address] [facility] [place] [address] [place], [address] [place] [address] 03/20/2024 2:00 PM EST Laboratory Laboratory [facility] 200 [facility] [place] [phone] Park, Lab [facility] 200 [facility] [place] [address] 03/27/2024 2:00 PM EST Office Visit Hematology/Oncology [facility] 200 [facility] [place] [phone] Lizbeth Madisno CRNP [address] [place] [address] Scheduled Orders Name Type Priority Associated Diagnoses [...] Screening 06/07/2024 06/08/2023 CKD PHOS USE SMARTSET 31523 08/25/202408/10, 08/25/2023, 08/24/2023, Additional history exists CKD HGB USE SMARTSET 42259 09/09/202409/09, 09/10/2023, 09/03/2023, Additional history exists Colonoscopy [...] this encounter Medical Devices Implanted Type Area Warehouse Foreman Device Identifier Shelf Expiration Date Model / Serial / Lot Valve Transcath Resilia 23mm - [id number] Implanted:Qty: 1 on 06/05/2023 by Mta Lucia MD at [facility] [employer] [id number] 11/12/2023 [id number] / / Screw Bone 6.5x30mm - [id number] Implanted:Qty: 1 on 08/17/2023 by Chito Cochran MD at OR [facility] Right: Hip ALEYDA : ORTHOPAEDICS 05/22/2028 5106-9046 / / HFF Screw Low Profile 6.7qvy18mo - [id number] Implanted:Qty: 1 on 08/17/2023 by Chito Cochran MD at OR [facility] Right: Hip ALEYDA : ORTHOPAEDICS 03/31/2028 0980-6516 / / [id number] Implant Stem Hip Colr High 2 - [id number] Implanted:Qty: 1 on 08/17/2023 by Chito Cochran MD at OR [facility] Right: Hip ALEYDA : ORTHOPAEDICS 03/20/2027 5226-2866 / / [id number] Hip Hd Ricardo Rdz Md D 36 25 - [id number] Implanted:Qty: 1 on 08/17/2023 by Chito Cochran MD at OR [facility] Right: Hip ALEYDA : ORTHOPAEDICS 03/19/2028 6570-0-436 / / [id number] Hip Shell Trident X3 10 36x50 - [id number] Implanted:Qty: 1 on 08/17/2023 by Chito Cochran MD at OR [facility] Left: Hip ALEYDA : ORTHOPAEDICS 07/10/2028 763-10-36E / / [id number] Implant Hip Acetab Shell 52e - [id number] Implanted:Qty: 1 on 08/17/2023 by Chito Cochran MD at OR [facility] Left: Hip ALEYDA : ORTHOPAEDICS 07/07/2028 709-04-52E / / [id number] 6.5mm Low Profile Hex Screw 6 - [id number] Implanted:Qty: 1 on 08/17/2023 by Chito Cochran MD at OR [facility] Left: Hip ALEYDA : ORTHOPAEDICS 04/24/2028 9140-7010 / / [id number] Screw Low Profile 6.8ifh90ku - [id number] Implanted:Qty: 1 on 08/17/2023 by Chito Cochran MD at OR [facility] Left: Hip ALEYDA : ORTHOPAEDICS 04/16/2028 7501-2903 / / [id number] Implant Stem Hip Colr High 1 - [id number] Implanted:Qty: 1 on 08/17/2023 by Chito Cochran MD at OR [facility] Left: Hip ALEYDA : ORTHOPAEDICS 12/13/2027 5362-2542 / / [id number] Hip Hd Ricardo Rdz Md D 36 25 - [id number] Implanted:Qty: 1 on 08/17/2023 by Chito Cochran MD at OR [facility] Left: Hip ALEYDA : ORTHOPAEDICS 01/30/2028 6570-0-436 / / [id number] Hip Shell Trident X3 10 36x50 - [id number] Implanted:Qty: 1 on 08/17/2023 by Chito Cochran MD at OR [facility] Right: Hip ALEYDA : ORTHOPAEDICS 05/03/2028 763-10-36E / / [id number] Implant Hip Acetab Shell 52e - [id number] Implanted:Qty: 1 on 08/17/2023 by Chito Cochran MD at OR [facility] Right: Hip ALEYDA : ORTHOPAEDICS 06/21/2028 709-04-52E / / [id number] documented as of this encounter Visit Diagnoses [...] Power of Attor ludmila? No Care Teams Potato Seed Cutter Relationship Specialty Start Date End Date Farhat MEEHAN, Deon Cerna MD 200 [place] [address] PCP - General 10/25/1995 documented as of this encounter
--- OUTSIDE RECORDS SUMMARY | 2023-09-22 13:23 | External Medical Summary | Summary of Care ---
Author Name Unknown Organization [facility] Address [address] [place] [address] Phone [phone] Care Team Providers Care Seasoner Name Role Phone Farhat MEEHAN MD, Deon Cerna Primary Care Provider [phone] Reason for Visit * Reason Onset Date Comments Appointment 09/05/2023 Encounter Details Date Type Department Care Team (Late st Contact Info) Description 09/05/2023 Telephone [facility] [address] [place] [address] Services, Scheduling [address] [place] [address] Appointment (/) Allergies Active Allergy Reactions Criticality Noted Date Comments Dichloralphenazone 08/15/2022 Other Reaction(s): RASH Isometheptene 08/15/2022 Other Reaction(s): RASH Midrin 07/21/1999 Red and ictchy in the face documented as of this encounter (statuses as of 09/05/2023) Medications Medication Sig Dispensed Refills Start Date [...] as of this encounter (statuses as of 09/05/2023) Active Problems Problem Noted Date Diagnosed Date Status post bilateral hip replacements Degenerative joint disease (DJD) of hip 08/17/19 Migraine variant 06/14/2023 Atherosclerosis of [place] co ronary artery without angina pectoris 06/14/2023 [...] as of this encounter (statuses as of 09/05/2023) Resolved Problems Problem Noted Date Diagnosed Date [...] as of this encounter (statuses as of 09/05/2023) Immunizations Name Administration Dates Next Due COVID-19 mRNA, LNP-s, No Pre serve, 2-Dose Series (Pfizer) 01/25/2021,2020,05/25/2020 COVID-19, MRNA-LNP, 23-24, P F, 30 MCG/0.3 mL, 12 YRS AND ABOVE, IM ([facility]) 12/21/2022 Pneumococcal Conjugate Vacci ne, 20-valent ([id number]) 10/13/2021 Pneumococcal Polysaccharide PPV23 (Pneumovax) 04/14/2020 RSV [...] encounter Miscellaneous Notes * Telephone Encounter - Douglas Agrawal OSA - 09/05/2023 3:47 PM EDT [facility] Engagement Attempt Engagement: Engagement Attempt 1: Contacted - Agreed to home-based services Scheduled appointment information: rncm 09/13, ap 10/25 11/07 Home Information: Has pets Advance Care Planning (ACP): No data was found Has Living Will or Advance Directive: No data was found Anticipated Sub-Program: Short-Term Management (less than 3 months) Confirmation of Sub-Program Type (by care warehouse team leader): No data was found Handoff Information: Current care team notified via: No data was found Current telemonitoring equipment: No data was found documented in this encounter Plan of Treatment Upcoming Encounters Date Type Department Care Team (Late st Contact Info) Description 09/10/2023 9:00 AM EDT Office Visit Family Practice [facility] 200 [facility] [place] [address] Berna Mack MD 200 [facility] [place] [address] 09/12/2023 10:00 AM EDT Office Visit Orthopaedics, [place] [address] [place] [address] Junior Chavez PA-C [address] [place] [address] 09/14/2023 12:30 PM EDT Home Visit [facility] at Home, [address] [place] [address] Megan Mata, RN [address] [facility] [place] [address] 11/08/2023 9:00 AM EDT Home Visit [facility], [facility] [place] [address] Tre Penny PA-C [facility] [place] [address] 11/14/2023 9:00 AM EDT Office Visit Family Practice [facility] 200 [facility] [place] [address] Deon Dougherty III, MD 200 [facility] [place] [address] 12/18/2023 8:30 AM EDT Office Visit Cardiology, [facility] 132 [facility] [place] [address] [place], DO [facility] [address] 03/20/2024 2:00 PM EST Laboratory Laboratory [facility] [place] [address] [place] [address] [phone] [place], Lab [place] [address] [place] [address] [place] [address] 03/27/2024 2:00 PM EST Office Visit Hematology/Oncology [facility] [place] [address] [place] [phone] Lizbeth Madison CRNP [address] [place] [address] [place] [address] Health Maintenance Due Date Last Done Comments [...] Screening 06/07/2024 06/08/2023 CKD PHOS USE SMARTSET 87792 08/25/202408/10, 08/25/2023, 08/24/2023, Additional history exists CKD HGB USE SMARTSET 99366 09/02/202409/02, 08/27/2023, 08/26/2023, Additional history exists Colonoscopy [...] this encounter Medical Devices Implanted Type Area Semiconductor Wafers Marker Device Identifier Shelf Expiration Date Model / Serial / Lot Valve Transcath Resilia 23mm - [id number] Implanted:Qty: 1 on 06/05/2023 by Mat Lucia MD at [facility]ARDIAC LABS [facility] [employer] [id number] 11/12/2023 [id number] / / Screw Bone 6.5x30mm - [id number] Implanted:Qty: 1 on 08/17/2023 by Chito Cochran MD at OR [facility] Right: Hip ALEYDA : ORTHOPAEDICS 05/22/2028 6766-3073 / / HFF Screw Low Profile 6.6kuz24kh - [id number] Implanted:Qty: 1 on 08/17/2023 by Chito Cochran MD at OR [facility] Right: Hip ALEYDA : ORTHOPAEDICS 03/31/2028 4602-0179 / / [id number] Implant Stem Hip Colr High 2 - [id number] Implanted:Qty: 1 on 08/17/2023 by Chito Cochran MD at OR [facility] Right: Hip ALEYDA : ORTHOPAEDICS 03/20/2027 7721-4500 / / [id number] Hip Hd Ricardo Rdz Md D 36 25 - [id number] Implanted:Qty: 1 on 08/17/2023 by Chito Cochran MD at OR [facility] Right: Hip ALEYDA : ORTHOPAEDICS 03/19/2028 6570-0-436 / / [id number] Hip Shell Trident X3 10 36x50 - [id number] Implanted:Qty: 1 on 08/17/2023 by Chito Cochran MD at OR [facility] Left: Hip ALEYDA : ORTHOPAEDICS 07/10/2028 763-10-36E / / [id number] Implant Hip Acetab Shell 52e - [id number] Implanted:Qty: 1 on 08/17/2023 by Chito Cochran MD at OR [facility] Left: Hip ALEYDA : ORTHOPAEDICS 07/07/2028 709-04-52E / / [id number] 6.5mm Low Profile Hex Screw 6 - [id number] Implanted:Qty: 1 on 08/17/2023 by Chito Cochran MD at OR [facility] Left: Hip ALEYDA : ORTHOPAEDICS 04/24/2028 5644-9957 / / [id number] Screw Low Profile 6.0elg51op - [id number] Implanted:Qty: 1 on 08/17/2023 by Chito Cochran MD at OR [facility] Left: Hip ALEYDA : ORTHOPAEDICS 04/16/2028 1833-7703 / / [id number] Implant Stem Hip Colr High 1 - [id number] Implanted:Qty: 1 on 08/17/2023 by Chito Cochran MD at OR [facility] Left: Hip ALEYDA : ORTHOPAEDICS 12/13/2027 3356-8422 / / [id number] Hip Hd Ricardo Rdz Md D 36 25 - [id number] Implanted:Qty: 1 on 08/17/2023 by Chito Cochran MD at OR [facility] Left: Hip ALEYDA : ORTHOPAEDICS 01/30/2028 6570-0-436 / / [id number] Hip Shell Trident X3 10 36x50 - [id number] Implanted:Qty: 1 on 08/17/2023 by Chito Cochran MD at OR [facility] Right: Hip ALEYDA : ORTHOPAEDICS 05/03/2028 763-10-36E / / [id number] Implant Hip Acetab Shell 52e - [id number] Implanted:Qty: 1 on 08/17/2023 by Chito Cochran MD at OR [facility] Right: Hip ALEYDA : ORTHOPAEDICS 06/21/2028 709-04-52E / / [id number] documented as of this encounter Advance Directives [...] Power of Attor ludmila? No Care Teams Seasoner Relationship Specialty Start Date End Date Deon Dougherty III, MD 200 [facility] [place] [place] [address] PCP - General 10/25/1995 documented as of this encounter
--- OUTSIDE RECORDS SUMMARY | 2023-09-22 13:23 | External Medical Summary | Summary of Care ---
Author Name Unknown Organization [facility] Address [address] [place] [address] Phone [phone] Care Team Providers Care Audiologist Name Role Phone Farhat MEEHAN MD, Deon Cerna Primary Care Provider [phone] Reason for Visit * Reason Onset Date Comments [facility]: Maintenance 09/05/2023 Encounter Details Date Type Department Care Team (Late st Contact Info) Description 09/05/2023 9:45 AM EDT Scheduled Telephone [facility], [facility] [address] [facility] [place] [id number] Marivel Arellano, [address] [place] [address] Allergies Active Allergy Reactions Criticality Noted Date [...] 08/17/19 24 Migraine variant 06/14/2023 Atherosclerosis of [place] co ronary artery without angina pectoris 06/14/2023 [...] (PFIZER-Comirnaty) 12/21/2022 Pneumococcal Conjugate Vacci ne, 20-valent (Olgaoul08) 10/13/2021 Pneumococcal Polysaccharide PPV23 (Pneumovax) 04/14/2020 RSV [...] encounter Miscellaneous Notes * Telephone Encounter - Jenny Nolan RN - 09/05/2023 2:07 PM EDT Callback from [place] with [facility] Plan is for patient to be discharged to home on Sunday, 09/06 with [facility] Home Health for PT /OT Merly Nolan RN, BSN [facility] Intake Triage Coordinator [phone] * Telephone Encounter - Marivel Arellano CM - 09/05/2023 9:06 AM EDT Call placed to [facility]. Confirmed that patient is still at facility. Transferred to [facility] for [place] requesting a call back Marivel Arellano Television Agent [email or web address] documented in this encounter Plan of Treatment Upcoming Encounters Date Type Department Care Team (Late st Contact Info) Description 09/12/2023 10:00 AM EDT Office Visit Orthopaedics, [place] [address] [place] [address] Junior Chavez PA-C [address] [place] [address] 11/14/2023 9:00 AM EDT Office Visit Family Practice [facility] [address] [place] [address] Deon Dougherty III, MD 200 [facility] [place] [address] 12/18/2023 8:30 AM EDT Office Visit Cardiology, [facility] [address] [facility] [place] [address] [place], DO [address] [place] [address] 03/20/2024 2:00 PM EST Laboratory Laboratory [facility] [address] [place] [phone] [facility] 200 [facility] [place] [address] 03/27/2024 2:00 PM EST Office Visit Hematology/Oncology [facility] [place] 200 [facility] [place], [place] [phone] Lizbeth Madison CRNP [address] [facility] [place] [phone] Health Maintenance Due Date Last Done Comments Cologuard 06/16/1999 Fecal Occult Blood Test 06/16/1999 Sigmoidoscopy 06/16/1999 COVID-19 Vaccine ( season) 2023 12/21/2022, 01/25/2021, 2020, Additional history exists Diabetic Eye Exam 07/11/2023 07/10/2022, , 07/10/2022, Additional history exists HbA1c 02/08/2024 08/08/2023, 03/0 03/2023, 11/08/2022, Additional history exists GFR 03/04/2024 09/03/2023, 08/10, 08/26/2023, Additional history exists Mammogram 04/23/2024 04/23/2023, 04/12, 04/19/2022, Additional history exists Albumin/Creatinine Ratio 05/10/2024 024, 04/17/2022, 04/15/2021, Additional history exists Diabetic Foot Exam 05/10/2024 05/11/2023, 0 04/17/2022, 04/15/2021 Depression Screening 06/07/2024 06/08/2023 CKD PHOS USE SMARTSET 25726 08/25/202408/10, 08/25/2023, 08/24/2023, Additional history exists CKD HGB USE SMARTSET 68424 09/02/202409/02, 08/27/2023, 08/26/2023, Additional history exists Colonoscopy [...] this encounter Medical Devices Implanted Type Area Riding Teacher Device Identifier Shelf Expiration Date Model / Serial / Lot Valve Transcath Resilia 23mm - [id number] Implanted:Qty: 1 on 06/05/2023 by Mat Lucia MD at [facility] [employer] [id number] 11/12/2023 [id number] / / Screw Bone 6.5x30mm - [id number] Implanted:Qty: 1 on 08/17/2023 by Chito Cochran MD at OR [facility] Right: Hip ALEYDA : ORTHOPAEDICS 05/22/2028 1201-8024 / / HFF Screw Low Profile 6.5kes79ae - [id number] Implanted:Qty: 1 on 08/17/2023 by Chito Cochran MD at OR [facility] Right: Hip ALEYDA : ORTHOPAEDICS 03/31/2028 5033-5893 / / [id number] Implant Stem Hip Colr High 2 - [id number] Implanted:Qty: 1 on 08/17/2023 by Chito Cochran MD at OR [facility] Right: Hip ALEYDA : ORTHOPAEDICS 03/20/2027 1783-6317 / / [id number] Hip Hd Ricardo Rdz Md D 36 25 - [id number] Implanted:Qty: 1 on 08/17/2023 by Chito Cochran MD at OR [facility] Right: Hip ALEYDA : ORTHOPAEDICS 03/19/2028 6570-0-436 / / [id number] Hip Shell Trident X3 10 36x50 - [id number] Implanted:Qty: 1 on 08/17/2023 by Chito Cochran MD at OR [facility] Left: Hip ALEYDA : ORTHOPAEDICS 07/10/2028 763-10-36E / / [id number] Implant Hip Acetab Shell 52e - [id number] Implanted:Qty: 1 on 08/17/2023 by Chito Cochran MD at OR [facility] Left: Hip ALEYDA : ORTHOPAEDICS 07/07/2028 709-04-52E / / [id number] 6.5mm Low Profile Hex Screw 6 - [id number] Implanted:Qty: 1 on 08/17/2023 by Chito Cochran MD at OR [facility] Left: Hip ALEYDA : ORTHOPAEDICS 04/24/2028 2142-1574 / / [id number] Screw Low Profile 6.2zfy02dt - [id number] Implanted:Qty: 1 on 08/17/2023 by Chito Cochran MD at OR [facility] Left: Hip ALEYDA : ORTHOPAEDICS 04/16/2028 5933-8615 / / [id number] Implant Stem Hip Colr High 1 - [id number] Implanted:Qty: 1 on 08/17/2023 by Chito Cochran MD at OR [facility] Left: Hip ALEYDA : ORTHOPAEDICS 12/13/2027 9228-7248 / / [id number] Hip Hd Ricardo Rdz Md D 36 25 - [id number] Implanted:Qty: 1 on 08/17/2023 by Chito Cochran MD at OR [facility] Left: Hip ALEYDA : ORTHOPAEDICS 01/30/2028 6570-0-436 / / [id number] Hip Shell Trident X3 10 36x50 - [id number] Implanted:Qty: 1 on 08/17/2023 by Chito Cochran MD at OR [facility] Right: Hip ALEYDA : ORTHOPAEDICS 05/03/2028 763-10-36E / / [id number] Implant Hip Acetab Shell 52e - [id number] Implanted:Qty: 1 on 08/17/2023 by Chito Cochran MD at [place] [facility] Right: Hip ALEYDA : ORTHOPAEDICS 06/21/2028 709-04-52E / / [id number] documented as of this encounter Advance Directives [...] Power of Attor ludmila? No Care Teams Audiologist Relationship Specialty Start Date End Date Deon Dougherty III, MD [address] [place] [address] PCP - General 10/25/1995 documented as of this encounter
--- OUTSIDE RECORDS SUMMARY | 2023-09-22 13:23 | External Medical Summary ---
Author Name Unknown Address Unknown Organization K09:[facility] [place] [place] [address] Laboratory Report Ordering Provider Test Date Status HY,DEPAMPHILIS 09/03/2023 06:10:16 Final Observation Date Value Abnormality Reference (Units ) Status BUN 09/03/2023 06:10:16 26 Above high normal 6-20 (mg/dL) Final Creatinine 09/03/2023 06:10:16 1.1 Above high normal 0.5-1.0 (mg/dL) Final Glomerular filtration rate/1.73 sq M.predicted [Volume Rate/Area] in Serum, Plasma or Blood by Creatinine-based formula (CKD-EPI) 09/03/2023 06:10:16 56 Below low normal >=60 (mL/min) Final eGFR is calculated based on the CKD-EPI 2020 equation Sodium 09/03/2023 06:10:16 138 135-146 (m mol/L) Final Potassium 09/03/2023 06:10:16 4.6 3.5-5.1 (m mol/L) Final Cl 09/03/2023 06:10:16 108 Above high normal 98 -107 (mmol/L) Final CO2 09/03/2023 06:10:16 21 Below low normal 22- 32 (mmol/L) Final Anion gap 09/03/2023 06:10:16 9 7-15 (mmol /L) Final Glucose 09/03/2023 06:10:16 92 70-120 (mg /dL) Final Calcium 09/03/2023 06:10:16 8.4 8.4-10.2 ( mg/dL) Final Performing Location [facility] [place] [place] [address]
--- OUTSIDE RECORDS SUMMARY | 2023-09-22 13:23 | External Medical Summary | Summary of Care ---
Author Name Unknown Organization [facility] Address [address] [place] [address] Phone [phone] Care Team Providers Care Briquette Machine Operator Name Role Phone Farhat MEEHAN MD, Deon Cerna Primary Care Provider [phone] Encounter Details Date Type Department Care Team (Late st Contact Info) Description 08/28/2023 Patient Reported Data Patient Survey Ortho OBERD Allergies Active Allergy Reactions Criticality Noted Date Comments Dichloralphenazone 08/15/2022 Other Reaction(s): RASH Isometheptene 08/15/2022 Other Reaction(s): RASH Midrin 07/21/1999 Red and ictchy in the face documented as of this encounter (statuses as of 08/28/2023) Medications Medication Sig Dispensed Refills Start Date [...] as of this encounter (statuses as of 08/28/2023) Active Problems Problem Noted Date Diagnosed Date Status post bilateral hip replacements Degenerative joint disease (DJD) of hip 08/17/19 Migraine variant 06/14/2023 Atherosclerosis of [place] ronary artery without angina pectoris 06/14/2023 [...] as of this encounter (statuses as of 08/28/2023) Resolved Problems Problem Noted Date Diagnosed Date [...] as of this encounter (statuses as of 08/28/2023) Immunizations Name Administration Dates Next Due COVID-19 mRNA, LNP-s, No Pre serve, 2-Dose Series ([employer]) 01/25/2021,2020,05/25/2020 COVID-19, MRNA-LNP, 23-24, P F, 30 MCG/0.3 mL, 12 YRS AND ABOVE, IM (PFIZER-Comirnaty) 12/21/2022 Pneumococcal Conjugate Vacci ne, 20-valent (Tikeutn26) 10/13/2021 Pneumococcal Polysaccharide PPV23 (Pneumovax) 04/14/2020 RSV [...] No 06/26/2023 Does the household have a [facility] source of income? (Household - for ages [...] AM EDT Scheduled Telephone [facility], [facility] [address] [facility] [place] [address] Marivel Arellano, [address] [facility] [place] [address] 09/12/2023 10:00 AM EDT Office Visit Orthopaedics, [place] [address] [place] [address] Junior Chavez PA-C [address] [place] [address] 11/14/2023 9:00 AM EDT Office Visit Family Practice [facility] [address] [address] Deon Dougherty III, MD [address] [place] [address] [address] 12/18/2023 8:30 AM EDT Office Visit Cardiology, [facility] [address] [place] [address] Los Carrizales DO [address] [place] [address] 03/20/2024 2:00 PM EST Laboratory Laboratory [facility] [address] [phone] [place] [address] [address] 03/27/2024 2:00 PM EST Office Visit Hematology/Oncology [facility] [address] [place] [address] [address] Lizbeth Madison CRNP [address] [place] [address] Health Maintenance Due Date Last Done Comments Cologuard 06/16/1999 Fecal Occult Blood Test 06/16/1999 Sigmoidoscopy 06/16/1999 COVID-19 Vaccine ( season) 2023 12/21/2022, 01/25/2021, 2020, Additional history exists Diabetic Eye Exam 07/11/2023 07/10/2022, , 07/10/2022, Additional history exists HbA1c 02/08/2024 08/08/2023, 03/03/2023, 11/08/2022, Additional history exists GFR 02/26/2024 08/27/2023, 08/10, 08/25/2023, Additional history exists Mammogram 04/23/2024 04/23/2023, 04/12, 04/19/2022, Additional history exists Albumin/Creatinine Ratio 05/10/2024 024, 04/17/2022, 04/15/2021, Additional history exists Diabetic Foot Exam 05/10/2024 05/11/2023, 0 04/17/2022, 04/15/2021 Depression Screening 06/07/2024 06/08/2023 CKD PHOS USE SMARTSET 05013 08/25/202408/10, 08/25/2023, 08/24/2023, Additional history exists CKD HGB USE SMARTSET 46092 08/26/202408/26, 08/26/2023, 08/25/2023, Additional history exists Colonoscopy 02/03/2025 02/03/2015, 01/11, [...] this encounter Medical Devices Implanted Type Area Director Of Medicare Device Identifier Shelf Expiration Date Model / Serial / Lot Valve Transcath Resilia 23mm - [id number] Implanted:Qty: 1 on 06/05/2023 by Mat Lucia [place] [facility] [employer] [id number] 11/12/2023 [id number] / / Screw Bone 6.5x30mm - [id number] Implanted:Qty: 1 on 08/17/2023 by Chito Cochran [place] [facility] [place]: Hip ALEYDA : ORTHOPAEDICS 05/22/2028 4349-5393 / / HFF Screw Low Profile 6.9dbc38bs - [id number] Implanted:Qty: 1 on 08/17/2023 by Chito Cochran [place] [facility] [place]: Hip ALEYDA : ORTHOPAEDICS 03/31/2028 1678-5598 / / [id number] Implant Stem Hip Colr High 2 - [id number] Implanted:Qty: 1 on 08/17/2023 by Chito Cochran [place] [facility] [place]: Hip ALEYDA : ORTHOPAEDICS 03/20/2027 2054-2961 / / [id number] Hip Hd Ricardo Rdz Md D 36 25 - [id number] Implanted:Qty: 1 on 08/17/2023 by Chito Cochran MD [place] [facility] [place]: Hip ALEYDA : ORTHOPAEDICS 03/19/2028 6570-0-436 / / [id number] Hip Shell Trident X3 10 36x50 - [id number] Implanted:Qty: 1 on 08/17/2023 by Chito Cochran MD [place] [facility] Left: Hip ALEYDA : ORTHOPAEDICS 07/10/2028 763-10-36E / / [id number] Implant Hip Acetab Shell 52e - [id number] Implanted:Qty: 1 on 08/17/2023 by Chito Cochran MD [place] [facility] [place]: Hip ALEYDA : ORTHOPAEDICS 07/07/2028 709-04-52E / / [id number] 6.5mm Low Profile Hex Screw 6 - [id number] Implanted:Qty: 1 on 08/17/2023 by Chito Cochran MD [place] [facility] [place]: Hip ALEYDA : ORTHOPAEDICS 04/24/2028 0778-3167 / / [id number] Screw Low Profile 6.4alh52cw - [id number] Implanted:Qty: 1 on 08/17/2023 by Chito Cochran MD [place] [facility] [place]: Hip ALEYDA : ORTHOPAEDICS 04/16/2028 9464-4459 / / [id number] Implant Stem Hip Colr High 1 - [id number] Implanted:Qty: 1 on 08/17/2023 by Chito Cochran MD [place] [facility] [place]: Hip ALEYDA : ORTHOPAEDICS 12/13/2027 2658-4660 / / [id number] Hip Steven Rdz Md D 36 25 - [id number] Implanted:Qty: 1 on 08/17/2023 by Chito Cochran MD [place] [facility] [place]: Hip ALEYDA : ORTHOPAEDICS 01/30/2028 6570-0-436 / / [id number] Hip Shell Trident X3 10 36x50 - [id number] Implanted:Qty: 1 on 08/17/2023 by Chito Cochran MD [place] [facility] [place]: Hip ALEYDA : ORTHOPAEDICS 05/03/2028 763-10-36E / / [id number] Implant Hip Acetab Shell 52e - [id number] Implanted:Qty: 1 on 08/17/2023 by Chito Cochran MD [place] [facility] [place]: Hip ALEYDA : ORTHOPAEDICS 06/21/2028 709-04-52E / / [id number] documented as of this encounter Advance Directives [...] Power of Attor ludmila? No Care Teams Briquette Machine Operator Relationship Specialty Start Date End Date Deon Dougherty III, MD [address] [place] [address] PCP - General 10/25/1995 documented as of this encounter
--- OUTSIDE RECORDS SUMMARY | 2023-09-22 13:23 | External Medical Summary | Summary of Care ---
Author Name Unknown Organization [facility] Address [address] [place] [address] Phone [phone] Care Team Providers Care Mandolin Repair Person Name Role Phone Farhat MEEHAN MD, Deon Cerna Primary Care Provider [phone] Encounter Details Date Type Department Care Team [...] hip 08/17/19 Migraine variant 06/14/2023 Atherosclerosis of [place] ronary artery without angina pectoris 06/14/2023 [...] mRNA, LNP-s, No Pre serve, 2-Dose Series ([employer]) 01/25/2021,2020,05/25/2020 COVID-19, MRNA-LNP, 23-24, P F, 30 MCG/0.3 mL, 12 YRS AND ABOVE, IM (PFIZER-Comirnaty) 12/21/2022 Pneumococcal Conjugate Vacci ne, 20-valent (Lojrmjz62) 10/13/2021 Pneumococcal Polysaccharide PPV23 (Pneumovax) 04/14/2020 RSV [...] No 06/26/2023 Does the household have a [facility] source of income? (Household - for [...] AM EDT Scheduled Telephone [facility], [facility] [address] [facility] [place] [address] Marivel Arellano, [address] [facility] [place] [address] 09/12/2023 10:00 AM EDT Office Visit Orthopaedics, [place] [address] [place] [address] Junior Chavez PA-C [address] [place] [address] 11/14/2023 9:00 AM EDT Office Visit Family Practice [facility] [address] [place] [address] [address] Deno Dougherty III, MD [address] [address] 12/18/2023 8:30 AM EDT Office Visit Cardiology, [facility] [address] [place] [address] Los Carrizales DO [address] [place] [address] 03/20/2024 2:00 PM EST Laboratory Laboratory [facility] [address] [phone] [place] [address] [address] 03/27/2024 2:00 PM EST Office Visit Hematology/Oncology [facility] [address] [place] [address] [address] Lizbeth Madison CRNP [address] [place] [address] Health Maintenance Due Date [...] Screening 06/07/2024 06/08/2023 CKD PHOS USE SMARTSET 64762 08/25/202408/10, 08/25/2023, 08/24/2023, Additional history exists CKD HGB USE SMARTSET 99798 08/26/202408/26, 08/26/2023, 08/25/2023, Additional history exists Colonoscopy [...] this encounter Medical Devices Implanted Type Area Scuba Diving Teacher Device Identifier Shelf Expiration Date Model / Serial / Lot Valve Transcath Resilia 23mm - [id number] Implanted:Qty: 1 on 06/05/2023 by Mat Lucia MD [place] [facility] [employer] [id number] 11/12/2023 [id number] / / Screw Bone 6.5x30mm - [id number] Implanted:Qty: 1 on 08/17/2023 by Chito Cocharn MD [place] [facility] [place]: Hip ALEYDA : ORTHOPAEDICS 05/22/2028 0879-5936 / / HFF Screw Low Profile 6.0sme00uy - [id number] Implanted:Qty: 1 on 08/17/2023 by Chito Cochran MD [place] [facility] [place]: Hip ALEYDA : ORTHOPAEDICS 03/31/2028 5534-6792 / / [id number] Implant Stem Hip Colr High 2 - [id number] Implanted:Qty: 1 on 08/17/2023 by Chito Cochran MD [place] [facility] [place]: Hip ALEYDA : ORTHOPAEDICS 03/20/2027 3184-1061 / / [id number] Hip Hd Ricardo Rdz Md D 36 25 - [id number] Implanted:Qty: 1 on 08/17/2023 by Chito Cochran MD [place] [facility] [place]: Hip ALEYDA : ORTHOPAEDICS 03/19/2028 6570-0-436 / / [id number] Hip Shell Trident X3 10 36x50 - [id number] Implanted:Qty: 1 on 08/17/2023 by Chito Cochran MD [place] [facility] Left: Hip ALEYDA : ORTHOPAEDICS 07/10/2028 763-10-36E / / [id number] Implant Hip Acetab Shell 52e - [id number] Implanted:Qty: 1 on 08/17/2023 by Chito Cochran MD [place] [facility] [place]: Hip ALEYDA : ORTHOPAEDICS 07/07/2028 709-04-52E / / [id number] 6.5mm Low Profile Hex Screw 6 - [id number] Implanted:Qty: 1 on 08/17/2023 by Chito Cochran MD [place] [facility] [place]: Hip ALEYDA : ORTHOPAEDICS 04/24/2028 8307-6118 / / [id number] Screw Low Profile 6.2gvj26hz - [id number] Implanted:Qty: 1 on 08/17/2023 by Chito Cochran MD [place] [facility] Left: Hip ALEYDA : ORTHOPAEDICS 04/16/2028 4816-6369 / / [id number] Implant Stem Hip Colr High 1 - [id number] Implanted:Qty: 1 on 08/17/2023 by Chito Cochran MD [place] [facility] Left: Hip ALEYDA : ORTHOPAEDICS 12/13/2027 2806-2649 / / [id number] Hip Steven Rdz Md D 36 25 - [id number] Implanted:Qty: 1 on 08/17/2023 by Chito Cochran MD [place] [facility] Left: Hip ALEYDA : ORTHOPAEDICS 01/30/2028 6570-0-436 / / [id number] Hip Shell Trident X3 10 36x50 - [id number] Implanted:Qty: 1 on 08/17/2023 by Chito Cochran MD [place] [facility] Right: Hip ALEYDA : ORTHOPAEDICS 05/03/2028 763-10-36E / / [id number] Implant Hip Acetab Shell 52e - [id number] Implanted:Qty: 1 on 08/17/2023 by Chito Cochran MD [place] [facility]: Hip ALEYDA : ORTHOPAEDICS 06/21/2028 709-04-52E / / [id number] documented as of this encounter Advance Directives [...] Power of Attor ludmila? No Care Teams Mandolin Repair Person Relationship Specialty Start Date End Date Deon Dougherty III, MD [address] [place] [address] PCP - General 10/25/1995 documented as of this encounter
--- OUTSIDE RECORDS SUMMARY | 2023-09-22 13:23 | External Medical Summary | Summary of Care ---
Author Name Unknown Organization [facility] Address [address] [place] [address] Phone [phone] Care Team Providers Care Long Distance Billing Operator Name Role Phone Farhat MEEHAN MD, Deon Cerna Primary Care Provider [phone] Encounter Details Date Type Department Care Team [...] hip 08/17/19 Migraine variant 06/14/2023 Atherosclerosis of [place] co ronary artery without angina pectoris 06/14/2023 [...] mRNA, LNP-s, No Pre serve, 2-Dose Series ([employer]) 01/25/2021,2020,05/25/2020 COVID-19, MRNA-LNP, 23-24, P F, 30 MCG/0.3 mL, 12 YRS AND ABOVE, IM (PFIZER-Comirnaty) 12/21/2022 Pneumococcal Conjugate Vacci ne, 20-valent (Hliuqej53) 10/13/2021 Pneumococcal Polysaccharide PPV23 (Pneumovax) 04/14/2020 RSV [...] No 06/26/2023 Does the household have a [facility] source of income? (Household - for [...] Telephone [facility], [facility] [address] [facility] [place] [address] Marivel Arellano, [address] [facility] [place] [address] 09/12/2023 10:00 AM EDT Office Visit Orthopaedics, [place] [address] [place] [address] Junior Chavez PA-C [address] [place] [address] 11/14/2023 9:00 AM EDT Office Visit Family Practice [facility] [address] [place] [address] [address] Deon Dougherty III, MD [address] [address] 12/18/2023 8:30 AM EDT Office Visit Cardiology, [facility] [address] [place] [address] Los Carrizales DO [address] [place] [address] 03/20/2024 2:00 PM EST Laboratory Laboratory [facility] [address] [phone] [place] [address] [address] 03/27/2024 2:00 PM EST Office Visit Hematology/Oncology [facility] [address] [place] [address] [address] Lizbeth Madison CRNP [address] [place] [place] [address] Health Maintenance Due Date [...] Screening 06/07/2024 06/08/2023 CKD PHOS USE SMARTSET 10367 08/25/202408/10, 08/25/2023, 08/24/2023, Additional history exists CKD HGB USE SMARTSET 61591 08/26/202408/26, 08/26/2023, 08/25/2023, Additional history exists Colonoscopy [...] this encounter Medical Devices Implanted Type Area Solution Design Engineer Device Identifier Shelf Expiration Date Model / Serial / Lot Valve Transcath Resilia 23mm - [id number] Implanted:Qty: 1 on 06/05/2023 by Mat Lucia MD at [facility] [place] [employer] [id number] 11/12/2023 [id number] / / Screw Bone 6.5x30mm - [id number] Implanted:Qty: 1 on 08/17/2023 by Chito Cochran MD at [place] [facility] [place] Right: Hip ALEYDA : ORTHOPAEDICS 05/22/2028 9879-5931 / / HFF Screw Low Profile 6.5wet37bh - [id number] Implanted:Qty: 1 on 08/17/2023 by Chito Cochran MD at [place] [facility] [place] Right: Hip ALEYDA : ORTHOPAEDICS 03/31/2028 5519-5002 / / [id number] Implant Stem Hip Colr High 2 - [id number] Implanted:Qty: 1 on 08/17/2023 by Chito Cochran MD at [place] [facility] [place] Right: Hip ALEYDA : ORTHOPAEDICS 03/20/2027 6912-9573 / / [id number] Hip Hd Ricardo Rdz Md D 36 25 - [id number] Implanted:Qty: 1 on 08/17/2023 by Chito Cochran MD at [place] [facility] [place] Right: Hip ALEYDA : ORTHOPAEDICS 03/19/2028 6570-0-436 / / [id number] Hip Shell Trident X3 10 36x50 - [id number] Implanted:Qty: 1 on 08/17/2023 by Chito Cochran MD at [place] [facility] [place] Left: Hip ALEYDA : ORTHOPAEDICS 07/10/2028 763-10-36E / / [id number] Implant Hip Acetab Shell 52e - [id number] Implanted:Qty: 1 on 08/17/2023 by Chito Cochran MD at [place] [facility] [place] Left: Hip ALEYDA : ORTHOPAEDICS 07/07/2028 709-04-52E / / [id number] 6.5mm Low Profile Hex Screw 6 - [id number] Implanted:Qty: 1 on 08/17/2023 by Chito Cochran MD at [place] [facility] [place] Left: Hip ALEYDA : ORTHOPAEDICS 04/24/2028 9640-0536 / / [id number] Screw Low Profile 6.9gaq90zd - [id number] Implanted:Qty: 1 on 08/17/2023 by Chito Cochran MD at [place] [facility] [place] Left: Hip ALEYDA : ORTHOPAEDICS 04/16/2028 0525-9128 / / [id number] Implant Stem Hip Colr High 1 - [id number] Implanted:Qty: 1 on 08/17/2023 by Chito Cochran MD at [place] [facility] [place] Left: Hip ALEYDA : ORTHOPAEDICS 12/13/2027 7882-5155 / / [id number] Hip Steven Rdz Md D 36 25 - [id number] Implanted:Qty: 1 on 08/17/2023 by Chito Cochran MD at [place] [facility] [place] Left: Hip ALEYDA : ORTHOPAEDICS 01/30/2028 6570-0-436 / / [id number] Hip Shell Trident X3 10 36x50 - [id number] Implanted:Qty: 1 on 08/17/2023 by Chito Cochran MD at [place] [facility] [place] Right: Hip ALEYDA : ORTHOPAEDICS 05/03/2028 763-10-36E / / [id number] Implant Hip Acetab Shell 52e - [id number] Implanted:Qty: 1 on 08/17/2023 by Chito Cochran MD at [place] [facility] [place] Right: Hip ALEYDA : ORTHOPAEDICS 06/21/2028 709-04-52E / / [id number] documented as of this encounter Advance Directives [...] Power of Attor ludmila? No Care Teams Long Distance Billing Operator Relationship Specialty Start Date End Date Deon Dougherty III, MD [address] [place] [address] PCP - General 10/25/1995 documented as of this encounter
--- OUTSIDE RECORDS SUMMARY | 2023-09-22 13:23 | External Medical Summary ---
Author Name Unknown Address Unknown Organization K09:[facility] [id number] Laboratory Report Ordering Provider Test Date Status HY,DEPAMPHILIS 09/03/2023 06:10:16 Final Observation Date Value Abnormality Reference (Units ) Status WBC, Total 09/03/2023 06:10:16 6.62 4.00-10.8 0 (K/uL) Final RBC 09/03/2023 06:10:16 2.72 3.85-5.15 (M/uL) Final Hemoglobin 09/03/2023 06:10:16 7.9 Below low normal 12 .0-15.3 (g/dL) Final HCT 09/03/2023 06:10:16 26.6 Below low normal 36. 0-45.2 (%) Final MCV 09/03/2023 06:10:16 97.8 81.5-97.5 (fL) Final MCH 09/03/2023 06:10:16 29.0 27.0-34.0 (pg) Final MCHC 09/03/2023 06:10:16 29.7 32.0-36.0 (g/dL) Final RDW 09/03/2023 06:10:16 18.6 11.5-15.5 (%) Final Platelets 09/03/2023 06:10:16 528 Above high normal 14 0-400 (K/uL) Final MPV 09/03/2023 06:10:16 9.7 6.6-11.1 ( fL) Final Performing Location [facility] [place] [address]
--- OUTSIDE RECORDS SUMMARY | 2023-09-22 13:23 | External Medical Summary | Summary of Care ---
Author Name Unknown Organization [facility] Address [address] [place] [address] Phone [phone] Care Team Providers Care Property Manager Name Role Phone Farhat MEEHAN MD, Deon Cerna Primary Care Provider [phone] Encounter Details Date Type Department Care Team [...] hip 08/17/19 Migraine variant 06/14/2023 Atherosclerosis of [place] co ronary artery without angina pectoris 06/14/2023 [...] mRNA, LNP-s, No Pre serve, 2-Dose Series (Curis) 01/25/2021,2020,05/25/2020 COVID-19, MRNA-LNP, 23-24, P F, 30 MCG/0.3 mL, 12 YRS AND ABOVE, IM (PFIZER-Comirnaty) 12/21/2022 Pneumococcal Conjugate Vacci ne, 20-valent (Hvulajr48) 10/13/2021 Pneumococcal Polysaccharide PPV23 (Pneumovax) 04/14/2020 RSV [...] Does the household have a [facility] source of income? (Household - for [...] AM EDT Scheduled Telephone [facility], [facility] [address] [facility] [place] [address] Marivel Arellano, [address] [facility] [place] [address] 09/12/2023 10:00 AM EDT Office Visit Orthopaedics, [place] [address] [place] [address] Junior Chavez PA-C [address] [place] [address] 11/14/2023 9:00 AM EDT Office Visit Family Practice [facility] [address] [place] [address] [address] Deon Dougherty III, MD [address] [address] 12/18/2023 8:30 AM EDT Office Visit Cardiology, [facility] [address] [place] [address] Los Carrizales DO [address] [place] [address] 03/20/2024 2:00 PM EST Laboratory Laboratory [facility] [address] [phone] [place] [address] [address] 03/27/2024 2:00 PM EST Office Visit Hematology/Oncology [facility] [address] [place] [address] [address] Lizbeth Madison CRNP [address] [place] [place] [address] Health Maintenance Due Date [...] Screening 06/07/2024 06/08/2023 CKD PHOS USE SMARTSET 42916 08/25/202408/10, 08/25/2023, 08/24/2023, Additional history exists CKD HGB USE SMARTSET 24813 08/26/202408/26, 08/26/2023, 08/25/2023, Additional history exists Colonoscopy [...] this encounter Medical Devices Implanted Type Area Compounding Scaler Device Identifier Shelf Expiration Date Model / Serial / Lot Valve Transcath Resilia 23mm - [id number] Implanted:Qty: 1 on 06/05/2023 by Mat Lucia MD [place] [facility] [place] [employer] [id number] 11/12/2023 [id number] / / Screw Bone 6.5x30mm - [id number] Implanted:Qty: 1 on 08/17/2023 by Chito Cochran MD at [place] [facility] [place] [facility] Right: Hip ALEYDA : ORTHOPAEDICS 05/22/2028 1139-9916 / / HFF Screw Low Profile 6.8diq85lu - [id number] Implanted:Qty: 1 on 08/17/2023 by Chito Cochran MD at [place] [facility] [place] Right: Hip ALEYDA : ORTHOPAEDICS 03/31/2028 1624-7951 / / [id number] Implant Stem Hip Colr High 2 - [id number] Implanted:Qty: 1 on 08/17/2023 by Chito Cochran MD at [place] [facility] [place] Right: Hip ALEYDA : ORTHOPAEDICS 03/20/2027 1415-0891 / / [id number] Hip Hd Ricardo Rdz Md D 36 25 - [id number] Implanted:Qty: 1 on 08/17/2023 by Chito Cochran MD at [place] [facility] [place] [facility] Right: Hip ALEYDA : ORTHOPAEDICS 03/19/2028 6570-0-436 / / [id number] Hip Shell Trident X3 10 36x50 - [id number] Implanted:Qty: 1 on 08/17/2023 by Chito Cochran MD at [place] [facility] [place] Left: Hip ALEYDA : ORTHOPAEDICS 07/10/2028 763-10-36E / / [id number] Implant Hip Acetab Shell 52e - [id number] Implanted:Qty: 1 on 08/17/2023 by Chito Cochran MD at [place] [facility] [place] Left: Hip ALEYDA : ORTHOPAEDICS 07/07/2028 709-04-52E / / [id number] 6.5mm Low Profile Hex Screw 6 - [id number] Implanted:Qty: 1 on 08/17/2023 by Chito Cochran MD at [place] [facility] [place] Left: Hip ALEYDA : ORTHOPAEDICS 04/24/2028 [id number] / / [id number] Screw Low Profile 6.1tgp59hr - [id number] Implanted:Qty: 1 on 08/17/2023 by Chito Cochran MD at [place] [facility] [place] Left: Hip ALEYDA : ORTHOPAEDICS 04/16/2028 [id number] / / [id number] Implant Stem Hip Colr High 1 - [id number] Implanted:Qty: 1 on 08/17/2023 by Chito Cochran MD at [place] [facility] [place] Left: Hip ALEYDA : ORTHOPAEDICS 12/13/2027 1103-7484 / / [id number] Hip Steven Rdz Md D 36 25 - [id number] Implanted:Qty: 1 on 08/17/2023 by Chito Cochran MD at [place] [facility] [place] Left: Hip ALEYDA : ORTHOPAEDICS 01/30/2028 6570-0-436 / / [id number] Hip Shell Trident X3 10 36x50 - [id number] Implanted:Qty: 1 on 08/17/2023 by Chito Cochran MD at [place] [facility] [place] Right: Hip ALEYDA : ORTHOPAEDICS 05/03/2028 763-10-36E / / [id number] Implant Hip Acetab Shell 52e - [id number] Implanted:Qty: 1 on 08/17/2023 by Chito Cochran MD at [place] [facility] [place] Right: Hip ALEYDA : ORTHOPAEDICS 06/21/2028 709-04-52E / / [id number] documented as of this encounter Advance Directives [...] Power of Attor ludmila? No Care Teams Property Manager Relationship Specialty Start Date End Date Deon Dougherty III, MD [address] [place] [address] PCP - General 10/25/1995 documented as of this encounter
--- OUTSIDE RECORDS SUMMARY | 2023-09-22 13:23 | External Medical Summary | Summary of Care ---
Author Name Unknown Organization [facility] Address [address] [place] [address] Phone [phone] Care Team Providers Care Laser Print Operator Name Role Phone Farhat MEEHAN MD, Deon Cerna Primary Care Provider [phone] Encounter Details Date Type Department Care Team [...] hip 08/17/19 Migraine variant 06/14/2023 Atherosclerosis of [place] co ronary artery without angina pectoris 06/14/2023 [...] mRNA, LNP-s, No Pre serve, 2-Dose Series ([employer]) 01/25/2021,2020,05/25/2020 COVID-19, MRNA-LNP, 23-24, P F, 30 MCG/0.3 mL, 12 YRS AND ABOVE, IM (PFIZER-Comirnaty) 12/21/2022 Pneumococcal Conjugate Vacci ne, 20-valent (Owhvowf71) 10/13/2021 Pneumococcal Polysaccharide PPV23 (Pneumovax) 04/14/2020 RSV [...] No 06/26/2023 Does the household have a [facility] source of income? (Household - for [...] AM EDT Scheduled Telephone [facility], [facility] [address] [facility] [place] [address] Marivel Arellano, [address] [facility] [place] [address] 09/12/2023 10:00 AM EDT Office Visit Orthopaedics, [place] [address] [place] [address] Junior Chavez PA-C [address] [place] [address] 11/14/2023 9:00 AM EDT Office Visit Family Practice [facility] [address] [place] [address] [address] Deon Dougherty III, MD [address] [place] [address] [address] 12/18/2023 8:30 AM EDT Office Visit Cardiology, [facility] [address] [place] [address] Los Carrizales DO [address] [place] [address] 03/20/2024 2:00 PM EST Laboratory Laboratory [facility] [address] [place] [phone] [place] [address] [place] [address] [place] [address] 03/27/2024 2:00 PM EST Office Visit Hematology/Oncology [facility] [address] [place] [address] [phone] Lizbeth [place] CRNP [address] [place] [address] Health Maintenance Due Date [...] Screening 06/07/2024 06/08/2023 CKD PHOS USE SMARTSET 70600 08/25/202408/10, 08/25/2023, 08/24/2023, Additional history exists CKD HGB USE SMARTSET 37759 08/26/202408/26, 08/26/2023, 08/25/2023, Additional history exists Colonoscopy [...] this encounter Medical Devices Implanted Type Area Public Relations Coordinator Device Identifier Shelf Expiration Date Model / Serial / Lot Valve Transcath Resilia 23mm - [id number] Implanted:Qty: 1 on 06/05/2023 by Mat Lucia MD at [facility] [employer] [id number] 11/12/2023 [id number] / / Screw Bone 6.5x30mm - [id number] Implanted:Qty: 1 on 08/17/2023 by Chito Cochran MD at OR [facility] Right: Hip ALEYDA : ORTHOPAEDICS 05/22/2028 5641-1730 / / HFF Screw Low Profile 6.7pop44vw - [id number] Implanted:Qty: 1 on 08/17/2023 by Chito Cochran MD at OR [facility] Right: Hip ALEYDA : ORTHOPAEDICS 03/31/2028 8172-7969 / / [id number] Implant Stem Hip Colr High 2 - [id number] Implanted:Qty: 1 on 08/17/2023 by Chito Cochran MD at OR [facility] Right: Hip ALEYDA : ORTHOPAEDICS 03/20/2027 8459-5819 / / [id number] Hip Hd Ricardo Rdz Md D 36 25 - [id number] Implanted:Qty: 1 on 08/17/2023 by Chito Cochran MD at OR [facility] Right: Hip ALEYDA : ORTHOPAEDICS 03/19/2028 6570-0-436 / / [id number] Hip Shell Trident X3 10 36x50 - [id number] Implanted:Qty: 1 on 08/17/2023 by Chito Cochran MD at OR [facility] Left: Hip ALEYDA : ORTHOPAEDICS 07/10/2028 763-10-36E / / [id number] Implant Hip Acetab Shell 52e - [id number] Implanted:Qty: 1 on 08/17/2023 by Chito Cochran MD at OR [facility] Left: Hip ALEYDA : ORTHOPAEDICS 07/07/2028 709-04-52E / / [id number] 6.5mm Low Profile Hex Screw 6 - [id number] Implanted:Qty: 1 on 08/17/2023 by Chito Cochran MD at OR [facility] Left: Hip ALEYDA : ORTHOPAEDICS 04/24/2028 3983-5753 / / [id number] Screw Low Profile 6.0tcr14oy - [id number] Implanted:Qty: 1 on 08/17/2023 by Chito Cochran MD at OR [facility] Left: Hip ALEYDA : ORTHOPAEDICS 04/16/2028 6688-1035 / / [id number] Implant Stem Hip Colr High 1 - [id number] Implanted:Qty: 1 on 08/17/2023 by Chito Cochran MD at OR [facility] Left: Hip ALEYDA : ORTHOPAEDICS 12/13/2027 8187-5091 / / [id number] Hip Steven Rdz Md D 36 25 - [id number] Implanted:Qty: 1 on 08/17/2023 by Chito Cochran MD at OR [facility] Left: Hip ALEYDA : ORTHOPAEDICS 01/30/2028 6570-0-436 / / [id number] Hip Shell Trident X3 10 36x50 - [id number] Implanted:Qty: 1 on 08/17/2023 by Chito Cochran MD at OR [facility] Right: Hip ALEYDA : ORTHOPAEDICS 05/03/2028 763-10-36E / / [id number] Implant Hip Acetab Shell 52e - [id number] Implanted:Qty: 1 on 08/17/2023 by Chito Cochran MD at OR [facility] Right: Hip ALEYDA : ORTHOPAEDICS 06/21/2028 709-04-52E / / [id number] documented as of this encounter Advance Directives [...] of Attor ludmila? No Care Teams Laser Print Operator Relationship Specialty Start Date End Date Deon Dougherty III, MD [address] [place] [address] PCP - General 10/25/1995 documented as of this encounter
--- OUTSIDE RECORDS SUMMARY | 2023-09-22 13:23 | External Medical Summary | Summary of Care ---
Author Name Unknown Organization [facility] Address [address] [place] [address] Phone [phone] Care Team Providers Care Refund Clerk Name Role Phone Farhat MEEHAN MD, Deon Cerna Primary Care Provider [phone] Reason for Visit * Reason Onset Date Comments [facility]: Screening 08/28/2023 Encounter Details Date Type Department Care Team (Late st Contact Info) Description 08/28/2023 Telephone [facility], [facility] [address] [facility] [place] [address] [facility], Nurse [facility] [address] [facility] [place] [address] [facility]: Screening Allergies Active Allergy Reactions Criticality Noted Date [...] 08/17/19 24 Migraine variant 06/14/2023 Atherosclerosis of [place] co ronary artery without angina pectoris 06/14/2023 [...] mRNA, LNP-s, No Pre serve, 2-Dose Series ([employer]) 01/25/2021,2020,05/25/2020 COVID-19, MRNA-LNP, 23-24, P F, 30 MCG/0.3 mL, 12 YRS AND ABOVE, IM (PFIZER-Comirnaty) 12/21/2022 Pneumococcal Conjugate Vacci ne, 20-valent (Rteamfj55) 10/13/2021 Pneumococcal Polysaccharide PPV23 (Pneumovax) 04/14/2020 RSV [...] encounter Miscellaneous Notes * Telephone Encounter - Anahi Cantu LPN - 08/28/2023 11:49 AM EDT Elsa Reyes was referred as a potential candidate for enrollment for [facility]. Referral elevated to [facility] leadership A review of this chart was completed and: Elsa meets criteria for [facility]. Jump to Initiation Referring care team was notified via : Tactile communication Pt currently at Rehab will follow for discharge. * Telephone Encounter - Anahi Cantu LPN - 08/28/2023 9:10 AM EDT Elsa Reyes was referred as a potential candidate for enrollment for [facility] Elevated request to [facility] leadership Awaiting their decision documented in this encounter Plan of Treatment Upcoming Encounters Date Type Department Care Team (Late st Contact Info) Description 09/05/2023 9:45 AM EDT Scheduled Telephone [facility], [facility] [address] [facility] [place] [address] Marivel Arellano, [address] [place] [address] 09/12/2023 10:00 AM EDT Office Visit Orthopaedics, [place] [address] [place] [address] Junior Chavez PA-C [address] [place], [place] [id number] 11/14/2023 9:00 AM EDT Office Visit Family Practice [facility] [address] [place] [address] Deon Dougherty III, MD [address] [place] [address] 12/18/2023 8:30 AM EDT Office Visit Cardiology, [facility] [address] [place] [address] Los Carrizales, [address] [facility] [place] [address] 03/20/2024 2:00 PM EST Laboratory Laboratory [facility] [address] [place] [phone] [facility] [address] [facility] [place] [address] 03/27/2024 2:00 PM EST Office Visit Hematology/Oncology [facility] [address] [facility] [place] [phone] Lizbeth [place] CRNP [address] [facility] [place] [address] Health Maintenance Due Date Last Done Comments Cologuard 06/16/1999 Fecal Occult Blood Test 06/16/1999 Sigmoidoscopy 06/16/1999 COVID-19 Vaccine ( season) 2023 12/21/2022, 01/25/2021, 2020, Additional history exists Diabetic Eye Exam 07/11/2023 07/10/2022, , 07/10/2022, Additional history exists HbA1c 02/08/2024 08/08/2023, 03/0 03/2023, 11/08/2022, Additional history exists GFR 02/26/2024 08/27/2023, 08/10, 08/25/2023, Additional history exists Mammogram 04/23/2024 04/23/2023, 04/12, 04/19/2022, Additional history exists Albumin/Creatinine Ratio 05/10/2024 024, 04/17/2022, 04/15/2021, Additional history exists Diabetic Foot Exam 05/10/2024 05/11/2023, 0 04/17/2022, 04/15/2021 Depression Screening 06/07/2024 06/08/2023 CKD PHOS USE SMARTSET 95908 08/25/202408/10, 08/25/2023, 08/24/2023, Additional history exists CKD HGB USE SMARTSET 55059 08/26/202408/26, 08/26/2023, 08/25/2023, Additional history exists Colonoscopy [...] this encounter Medical Devices Implanted Type Area Commercial Loan Officer Device Identifier Shelf Expiration Date Model / Serial / Lot Valve Transcath Resilia 23mm - [id number] Implanted:Qty: 1 on 06/05/2023 by Mat Lucia MD at [facility] [employer] [id number] 11/12/2023 [id number] / / Screw Bone 6.5x30mm - [id number] Implanted:Qty: 1 on 08/17/2023 by Chito Cochran MD at OR [facility] Right: Hip ALEYDA : ORTHOPAEDICS 05/22/2028 0090-2703 / / HFF Screw Low Profile 6.8oah43az - [id number] Implanted:Qty: 1 on 08/17/2023 by Chito Cochran MD at OR [facility] Right: Hip ALEYDA : ORTHOPAEDICS 03/31/2028 1198-3862 / / [id number] Implant Stem Hip Colr High 2 - [id number] Implanted:Qty: 1 on 08/17/2023 by Chito Cochran MD at OR [facility] Right: Hip ALEYDA : ORTHOPAEDICS 03/20/2027 8207-7080 / / [id number] Hip Steven Rdz Md D 36 25 - [id number] Implanted:Qty: 1 on 08/17/2023 by Chito Cochran MD at OR [facility] Right: Hip ALEYDA : ORTHOPAEDICS 03/19/2028 6570-0-436 / / [id number] Hip Shell Trident X3 10 36x50 - [id number] Implanted:Qty: 1 on 08/17/2023 by Chito Cochran MD at OR [facility] Left: Hip ALEYDA : ORTHOPAEDICS 07/10/2028 763-10-36E / / [id number] Implant Hip Acetab Shell 52e - [id number] Implanted:Qty: 1 on 08/17/2023 by Chito Cochran MD at OR [facility] Left: Hip ALEYDA : ORTHOPAEDICS 07/07/2028 709-04-52E / / [id number] 6.5mm Low Profile Hex Screw 6 - [id number] Implanted:Qty: 1 on 08/17/2023 by Chito Cochran MD at OR [facility] Left: Hip ALEYDA : ORTHOPAEDICS 04/24/2028 6526-7247 / / [id number] Screw Low Profile 6.6dui64se - [id number] Implanted:Qty: 1 on 08/17/2023 by Chito Cochran MD at OR [facility] Left: Hip ALEYDA : ORTHOPAEDICS 04/16/2028 6504-9122 / / [id number] Implant Stem Hip Colr High 1 - [id number] Implanted:Qty: 1 on 08/17/2023 by Chito Cochran MD at OR [facility] Left: Hip ALEYDA : ORTHOPAEDICS 12/13/2027 7615-2017 / / [id number] Hip Hd Ricardo Rdz Md D 36 25 - [id number] Implanted:Qty: 1 on 08/17/2023 by Chito Cochran MD at OR [facility] Left: Hip ALEYDA : ORTHOPAEDICS 01/30/2028 6570-0-436 / / [id number] Hip Shell Trident X3 10 36x50 - [id number] Implanted:Qty: 1 on 08/17/2023 by Chito Cochran MD at OR [facility] Right: Hip ALEYDA : ORTHOPAEDICS 05/03/2028 763-10-36E / / [id number] Implant Hip Acetab Shell 52e - [id number] Implanted:Qty: 1 on 08/17/2023 by Chito Cocharn MD at OR [facility] Right: Hip ALEYDA : ORTHOPAEDICS 06/21/2028 709-04-52E / / [id number] documented as of this encounter Advance Directives [...] Power of Attor ludmila? No Care Teams Refund Clerk Relationship Specialty Start Date End Date Deon Dougherty III, MD [address] [place] [address] PCP - General 10/25/1995 documented as of this encounter
--- OUTSIDE RECORDS SUMMARY | 2023-09-22 13:23 | External Medical Summary | Summary of Care ---
Author Name Unknown Organization [facility] Address [address] [place] [address] Phone [phone] Care Team Providers Care Air Chipper Name Role Phone Farhat MEEHAN MD, Deon Cerna Primary Care Provider [phone] Reason for Visit * Reason Onset Date Comments [facility]: Maintenance 09/05/2023 Encounter Details Date Type Department Care Team (Late st Contact Info) Description 09/05/2023 9:45 AM EDT Scheduled Telephone [facility], [facility] [address] [facility] [place] [phone] Marivel Arellano, [address] [place] [address] Allergies Active Allergy Reactions Criticality Noted Date [...] 08/17/19 24 Migraine variant 06/14/2023 Atherosclerosis of [place] co ronary artery without angina pectoris 06/14/2023 [...] (PFIZER-Comirnaty) 12/21/2022 Pneumococcal Conjugate Vacci ne, 20-valent (Lmsxbns83) 10/13/2021 Pneumococcal Polysaccharide PPV23 (Pneumovax) 04/14/2020 RSV [...] encounter Miscellaneous Notes * Telephone Encounter - Marivel Arellano CM - 09/05/2023 9:06 AM EDT Call placed to [facility]. Confirmed that patient is still at facility. Transferred to [facility] for Jordyn requesting a call back Marivel Arellano Broadcast Director Operations [facility] at [email or web address] documented in this encounter Plan of Treatment Upcoming Encounters Date Type Department Care Team (Late st Contact Info) Description 09/12/2023 10:00 AM EDT Office Visit Orthopaedics, [place] [address] [place] [address] Junior Chavez PA-C [address] [place] [address] 11/14/2023 9:00 AM EDT Office Visit [facility] [address] [place] [address] Deon Dougherty III, MD [address] [place] [address] 12/18/2023 8:30 AM EDT Office Visit Cardiology, [facility] [address] [facility] [place] [address] Los Carrizales O, DO [address] [place] [address] 03/20/2024 2:00 PM EST Laboratory Laboratory [facility] [address] [place] [phone] [place], [facility] [address] [place] [address] 03/27/2024 2:00 PM EST Office Visit Hematology/Oncology [facility] [address] [place] [phone] Lizbeth [place] CRNP [address] [facility] [place] [phone] Health Maintenance Due Date Last Done Comments [...] Screening 06/07/2024 06/08/2023 CKD PHOS USE SMARTSET 84921 08/25/202408/10, 08/25/2023, 08/24/2023, Additional history exists CKD HGB USE SMARTSET 17984 09/02/202409/02, 08/27/2023, 08/26/2023, Additional history exists Colonoscopy [...] this encounter Medical Devices Implanted Type Area Machine Sorter Device Identifier Shelf Expiration Date Model / Serial / Lot Valve Transcath Resilia 23mm - [id number] Implanted:Qty: 1 on 06/05/2023 by Mat Lucia MD at [facility] [employer] [id number] 11/12/2023 [id number] / / Screw Bone 6.5x30mm - [id number] Implanted:Qty: 1 on 08/17/2023 by Chito Cochran MD [place] [facility] Right: Hip ALEYDA : ORTHOPAEDICS 05/22/2028 4077-2374 / / HFF Screw Low Profile 6.7zqr73jt - [id number] Implanted:Qty: 1 on 08/17/2023 by Chito Cochran MD [place] [facility] [place]: Hip ALEYDA : ORTHOPAEDICS 03/31/2028 1738-4378 / / [id number] Implant Stem Hip Colr High 2 - [id number] Implanted:Qty: 1 on 08/17/2023 by Chito Cochran MD [place] [facility] [place]: Hip ALEYDA : ORTHOPAEDICS 03/20/2027 1439-3561 / / [id number] Hip Steven Chavira 36 25 - [id number] Implanted:Qty: 1 on 08/17/2023 by Chito Cochran MD [place] [facility] [place]: Hip ALEYDA : ORTHOPAEDICS 03/19/2028 6570-0-436 / / [id number] Hip Shell Trident X3 10 36x50 - [id number] Implanted:Qty: 1 on 08/17/2023 by Chito Cochran MD [place] [facility] [place]: Hip ALEYDA : ORTHOPAEDICS 07/10/2028 763-10-36E / / [id number] Implant Hip Acetab Shell 52e - [id number] Implanted:Qty: 1 on 08/17/2023 by Chito Cochran MD [place] [facility] [place]: Hip ALEYDA : ORTHOPAEDICS 07/07/2028 709-04-52E / / [id number] 6.5mm Low Profile Hex Screw 6 - [id number] Implanted:Qty: 1 on 08/17/2023 by Chito Cochran MD [place] [facility] [place]: Hip ALEYDA : ORTHOPAEDICS 04/24/2028 8021-3252 / / [id number] Screw Low Profile 6.1ysl04jc - [id number] Implanted:Qty: 1 on 08/17/2023 by Chito Cochran [place] [facility] Left: Hip ALEYDA : ORTHOPAEDICS 04/16/2028 4282-5420 / / [id number] Implant Stem Hip Colr High 1 - [id number] Implanted:Qty: 1 on 08/17/2023 by Chito Cochran MD [place] [facility] Left: Hip ALEYDA : ORTHOPAEDICS 12/13/2027 7496-2171 / / [id number] Hip Hd Ricardo Chavira 36 25 - [id number] Implanted:Qty: 1 on 08/17/2023 by Chito Cochran MD [place] [facility] [place] Left: Hip ALEYDA : ORTHOPAEDICS 01/30/2028 6570-0-436 / / [id number] Hip Shell Trident X3 10 36x50 - [id number] Implanted:Qty: 1 on 08/17/2023 by Chito Cochran MD [place] [facility] Right: Hip ALEYDA : ORTHOPAEDICS 05/03/2028 763-10-36E / / [id number] Implant Hip Acetab Shell 52e - [id number] Implanted:Qty: 1 on 08/17/2023 by Chito Cochran MD [place] [facility] Right: Hip ALEYDA : ORTHOPAEDICS 06/21/2028 709-04-52E / / [id number] documented as of this encounter Advance Directives [...] Power of Attor ludmila? No Care Teams Air Chipper Relationship Specialty Start Date End Date Deon Dougherty III, MD [address] [facility] [place] [address] PCP - General 10/25/1995 documented as of this encounter
--- OUTSIDE RECORDS SUMMARY | 2023-09-22 13:24 | External Medical Summary | Summary of Care ---
Author Name Unknown Organization [facility] Address [address] [place] [address] Phone [phone] Care Team Providers Care Field Administrator Name Role Phone Farhat MEEHAN MD, José Cerna Primary Care Provider [phone] Reason for Visit * Auth/Cert Specialty Diagnoses / Procedures Referred By Judit cardenas Referred To Contact Diagnoses Primary osteoarthritis of both hips Primary osteoarthritis of both hips [M16.0] Procedures TOTAL HIP REPLACEMENT & PROSTHESIS ARTHROPLASTY TOTAL HIP Chito Cochran MD [address] [place] [address] Or [facility] [address] [place] [address] Referral ID Status Reason Start Date Expiration Date Visits Re quested Visits Authorized [id number] Encounter Details Date Type Department Care Team (Latest Contact Info) Description 08/17/2023 11:27 AM EDT - 08/26/2023 10:18 AM EDT Hospital Encounter CICU, Cardiac Intensive Care Unit [facility] 7TH Floor [address] [place] [address] Chito Cochran MD [address] [place] [address] Pascual Mo MD [address] [place] [address] Anahi Chappell MD [address] [place] [address] Tylor Rivas MD [address] [place] [address] Diagnostic Clarification Discharge Disposition: IP Rehab Allergies Active Allergy Reactions Criticality Noted Date Comments Dichloralphenazone 08/15/2022 Other Reaction(s): RASH Isometheptene 08/15/2022 Other Reaction(s): RASH Midrin 07/21/1999 Red and ictchy in the face documented as of this encounter (statuses as of 08/26/2023) Medications Medication Sig Dispensed Refills Start Date [...] MOUTH AT BEDTIME 90 Tablet 1 04/16/2023 5 Active Amoxicillin 500 MG Oral Capsule (Amoxil) [...] the morning. 30 Tablet 2 08/26/2023 Active Calcium Carbonate-Vit D-Min (CALCIUM 600+D PLUS MINERALS) 600-400 MG-UNIT CHEW Take by mouth daily. T tablet daily 4 Discontinued Cyanocobalamin 1000 MCG Oral Tablet (Cyanocobalamin) Take by mouth 1 Tablet in the morning. 100 Tablet 3 10/13/2021 4 Discontinued Vitamin D (Cholecalciferol) 25 MCG (1000 UT) Oral Capsule Take 1 Capsule by mouth in the morning and 1 Capsule before bedtime. 4 Discontinued Diclofenac Sodium 1 % External Gel (Voltaren) Apply topically to affected area 3 times a day. Apply to 5 th mtp head 11/08/2022 4 Discontinued Acetaminophen ER 650 MG Oral Tablet Extended Release (Tylenol 8 Hour Arthritis Pain) Take 1 Tablet by mouth daily at noon. 4 Discontinued metFORMIN HCl ER 500 MG Oral Tablet Extended Release 24 Hour (Glucophage XR)Indications:Abn ormal blood chemistry TAKE FOUR TABLETS BY MOUTH EVERY DAY 360 Tablet 1 04/16/2023 4 Discontinued Abrysvo 120 MCG/0.5ML Intramuscular Solution Reconstituted (RSV Pre-Fusion F A&B Vac Rcmb) Inject 0.5 mL into a large muscle once for 1 dose. 1 Each 06/07/2023 4 Discontinued Aspirin 81 MG Oral Tablet Chewable Take 1 Tablet by mouth in the morning. 34 Tablet 11 06/07/2023 4 Discontinued Indapamide 1.25 MG Oral TabletIndications: HTN, goal below 140/90 Take 1 Tablet by mouth in the morning. 90 Tablet 1 06/22/2023 4 Discontinued traMADol HCl 50 MG Oral Tablet (Ultram)Indication s:Bilateral hip pain Take 1 Tablet by mouth every 8 hours as needed for Pain, Moderate or Pain, Severe. Two per day maximum 30 Tablet 08/09/2023 4 Discontinued Mupirocin 2 % External Ointment (Bactroban) Apply topically to affected area 2 times a day for 7 days. Apply a pea sized amount into each nostril, using a cotton tipped applicator. Do not start before August 10, 2023. 22 g 08/10/2023 4 Discontinued documented as of this encounter (statuses as of 08/26/2023) Active Problems Problem Noted Date Diagnosed Date Status post bilateral hip replacements Degenerative joint disease (DJD) of hip 08/17/19 24 Migraine variant 06/14/2023 Atherosclerosis of [place] co ronary artery without angina pectoris 06/14/2023 [...] as of this encounter (statuses as of 08/26/2023) Resolved Problems Problem Noted Date Diagnosed Date [...] as of this encounter (statuses as of 08/26/2023) Immunizations Name Administration Dates Next Due COVID-19 mRNA, LNP-s, No Pre serve, 2-Dose Series ([employer]) 01/25/2021,2020,05/25/2020 COVID-19, MRNA-LNP, 23-24, P F, 30 MCG/0.3 mL, 12 YRS AND ABOVE, IM (PFIZER-Comirnaty) 12/21/2022 Pneumococcal Conjugate Vacci ne, 20-valent ([id number]) 10/13/2021 Pneumococcal Polysaccharide PPV23 (Pneumovax) 04/14/2020 RSV [...] money to get more. Never true 06/26/2023 Sex and Gender Information Value Date Recorded Sex Assigned at Female 07/24/2018 9:10 AM EDT Gender Identity Female 07/24/2018 9:10 AM EDT Sexual Orientation Straight 07/24/2018 9: 10 AM EDT Job Start Date Occupation Industry Not on file Not on file Not on file documented as of this encounter Last Filed Vital Signs Vital Sign Reading Time Taken Comments Blood Pressure 104/64 08/26/2023 8:00 AM EDT Pulse 81 08/26/2023 8:00 AM EDT Temperature 36.6 C (97.9 F) 08/26/2023 8:00 AM ED T Respiratory Rate 28 08/26/2023 8:00 AM EDT Oxygen Saturation 98% 08/26/2023 8:00 AM EDT Inhaled Oxygen Concentration - - Weight 87.5 kg (192 lb 14.4 oz) 08/26/2023 6:00 AM EDT Height 150 cm (4' 11.06") 08/17/2023 11 :23 PM EDT Body Mass Index 38.89 08/17/2023 11:23 PM EDT documented in this encounter Functional Status Functional [...] No 08/17/2023 documented as of this encounter Discharge Summaries * Lesli Bates MD - 08/26/2023 8:30 AM EDT [address] [address] Admission Date: 08/17/2023 Discharge Date: 08/26/2023 RECOMMENDED TO DO FOR NEXT PROVIDER(S): Orthopedic follow up scheduled 09/12/23 To continue 6 week course of doxycycline per ortho team CBC and BMP in 1 week Holding LADLER indapamide on discharge for hypotension, restart as indicated REASON(S) FOR MEDICATION CHANGE(S): START TAKING: doxycycline hyclate 100 MG Capsule Famotidine 20 MG Tablet oxyCODONE 5 MG immediate release tablet Vitamin 27-0.8 MG Tabs Senna 8.6 MG Caps STOP TAKING: Abrysvo 120 MCG/0.5ML Solr injection (RSV Pre-Fusion F A&B Vac Rcmb) Calcium 600+D Plus Minerals 600-400 MG-UNIT Chew chlorhexidine gluconate 4% 4 % external liquid (Hibiclens) Indapamide 1.25 MG Tablet mupirocin calcium 2 % ointment (Bactroban) traMADol 50 MG Tablet (Ultram) Vitamin D (Cholecalciferol) 25 MCG (1000 UT) Caps DISPOSITION ON DISCHARGE: IP Rehab Active Hospital Problems Diagnosis *Principal Diagnosis - Status post bilateral hip replacements Degenerative joint disease (DJD) of hip RBBB (right bundle branch block) Conduction disorder of the heart Dyslipidemia, goal LDL below 130 HTN, goal below 140/90 Resolved Hospital Problems Diagnosis Date Resolved Hypotension due to hypovolemia 08/24/2023 Acute blood loss anemia 08/25/2023 Shock (HCC) 08/24/2023 Metabolic acidosis 08/24/2023 Primary osteoarthritis of both hips 08/25/2023 Chronic kidney disease, stage 3a 08/25/2023 ADMISSION HISTORY & PHYSICAL EXAM (focused): Per Junior Chavez PA-C Elsa Reyes is a 68 year old female with bilateral hip pain. Pain 09/18 hip x years Severe left hip djd Moderate right hip djd Sitting pain 06/05/23 percutaneous AVR Fay pierce and AVR Dr Lyons here Smoking none Etoh none Dental 5 months ago and ok Tender troch sciatica and hip djd I reviewed xrays from today and medicatiuons Can walk with a can e but slow painful gait Mild anemia creatinine 1.2 Voltaren gel to troch bursitis Bilat thrs with left then right if cleared by cardiology Chito Cochran MD Physical Exam Cardiovascular: Heart sounds: Normal heart sounds. No murmur heard. No friction rub. No gallop. Pulmonary: Breath sounds: Normal breath sounds. No stridor. No wheezing, rhonchi or rales. Musculoskeletal: Comments: Palpable dp bilaterally Ehl/df/pf 5/5 bilateral Right and left thigh no cuts, erythema, or edema HOSPITAL COURSE (focused): Elsa Reyes was admitted to [facility] on 08/17/2023 with elective bilateral hip replacements from home. Ms. Reyes was noted to have a drop in blood pressure during and following the surgery and a drop in hemoglobin and was ordered 2u blood transfusion immediately after the surgery and was admitted to the CICU due to pressor requirements. Ms. Reyes required 2 additional blood transfusions while in the ICU and had hemoglobin remaining stable following and was able to be weaned off the pressor support while maintaining MAP >65. Ms. Reyes was given diuresis while admitted due to becoming volume up from the transfusions and fluids. Of note, patient was started on doxycylineimmediately post op and to continue for 6 week duration. Although lack of significant evidence supporting duration post op, ordered on discharge as a courtesy for Orthopedic surgery team. Ms. Reyes was stable for discharge to rehab on 08/26/2023. General: pleasant, age appearing female, lying in bed, in no acute distress HEENT: normocephalic, atraumatic, sclera white, EOM intact CV: regular rate and rhythm with no murmurs, rubs or gallops Chest: clear to auscultation, no rales, rhonci, wheezing Abdomen: soft, non-distended, no tenderness to palpation. Surgical Site: R and L hip - dressings C/D/I, no bleeding or drainage on bandages Extremities: no LE peripheral edema Skin: warm, dry, intact Neuro: following commands, no focal neurologic deficits Psych: normal mood and affect. Operations & Procedures: 08/17/23 - bilateral hip replacements Complications: post op hypotension and hypovolemic shock requiring 4u pRBC and pressor support Significant Lab and Imaging Results: As mentioned above Results Pending at Discharge: Lab Results Pending at Discharge: CBC STAT BASIC METABOLIC PANEL STAT MAGNESIUM STAT PHOSPHORUS STAT MEDICATION UPDATES AT DISCHARGE START taking these medications INSTRUCTIONS Acetaminophen 500 MG Tablet Commonly known as: Tylenol Replaces: Tylenol 8 Hour Arthritis Pain 650 MG Tbcr Take 2 Tablets by mouth every 8 hours as needed for Pain, Mild, Pain, Moderate or Pain, Severe. DO NOT EXCEED 6 TABS IN 24 HOURS. aspirin enteric coated 81 MG Tbec Commonly known as: Adult Aspirin Regimen Replaces: aspirin 81 MG chewable tablet Take 1 Tablet by mouth in the morning and 1 Tablet before bedtime. doxycycline hyclate 100 MG Capsule Take 1 Capsule by mouth in the morning and 1 Capsule before bedtime. Famotidine 20 MG Tablet Commonly known as: Pepcid Take 1 Tablet by mouth in the morning. oxyCODONE 5 MG immediate release tablet Commonly known as: Oxy IR Take 1 Tablet by mouth every 4 hours as needed for Pain, Moderate or Pain, Severe. Vitamin 27-0.8 MG Tabs Take 1 Tablet by mouth in the morning. Senna 8.6 MG Caps Take 1 Capsule by mouth in the morning. While taking narcotics. CHANGE how you take these medications INSTRUCTIONS Diclofenac 1 % Gel Commonly known as: Voltaren What changed: Another medication with the same name was removed. Continue taking this medication, and follow the directions you see here. Apply topically to affected area 4 times a day. Apply to areas outside both hips/troch bursitis metFORMIN ER 500 MG Tb24 Commonly known as: Glucophage XR What changed: how much to take how to take this when to take this additional instructions Take 2 Tablets by mouth 2 times a day with morning and evening meals. Take with food Vitamin B-12 1000 MCG Tablet Commonly known as: Cyanocobalamin What changed: medication strength Take 1 Tablet by mouth in the morning. CONTINUE taking these medications INSTRUCTIONS amitriptyline 75 MG Tablet Commonly known as: Elavil TAKE ONE TABLET BY MOUTH AT BEDTIME Amoxicillin 500 MG Capsule Commonly known as: Amoxil Take 4 capsules 1 hour prior to any dental work atorvaSTATin 80 MG Tablet Commonly known as: Lipitor Take 1 Tablet by mouth at bedtime. Calmoseptine 0.44-20.6 % ointment Generic drug: Menthol-Zinc Oxide Apply topically to affected area every 6 hours as needed for Wound Care. Apply to pressure sore on buttock. cyclobenzaprine 10 MG Tablet Commonly known as: Flexeril TAKE ONE TABLET BY MOUTH THREE TIMES A DAY -- IN THE MORNING , NOON, AND AT BEDTIME Letrozole 2.5 MG Tablet Commonly known as: Femara Take 1 Tablet by mouth in the morning. Nadolol 20 MG Tablet Commonly known as: Corgard Take 1 Tablet by mouth at bedtime. Triamcinolone Acetonide 0.1 % cream Commonly known as: Aristocort APPLY TWICE DAILY DIRECTED STOP taking these medications Abrysvo 120 MCG/0.5ML Solr injection Generic drug: RSV Pre-Fusion F A&B Vac Rcmb aspirin 81 MG chewable tablet Replaced by: aspirin enteric coated 81 MG Tbec Calcium 600+D Plus Minerals 600-400 MG-UNIT Chew chlorhexidine gluconate 4% 4 % external liquid Commonly known as: Hibiclens Indapamide 1.25 MG Tablet mupirocin calcium 2 % ointment Commonly known as: Bactroban traMADol 50 MG Tablet Commonly known as: Ultram Tylenol 8 Hour Arthritis Pain 650 MG Tbcr Generic drug: Acetaminophen ER Replaced by: Acetaminophen 500 MG Tablet Vitamin D (Cholecalciferol) 25 MCG (1000 UT) Caps CONTINUE taking these medications but follow up with your Primary Care Physician (PCP). INSTRUCTIONS Ocuvite-Lutein Capsule One capsule twice daily Vitamin B-2 100 MG Tablet Commonly known as: Riboflavin Take 2 Tablets by mouth in the morning and 2 Tablets before bedtime. SCHEDULED FOLLOW-UP: Future Appointments Appt Date/Time Provider Department 09/12/2023 10:00 AM [facility]14/[facility]23 9:00 AM José Dougherty III, MD Family Practice [facility] 12/18/2023 8:30 AM Los Carrizales DO Cardiology, [facility] 03/20/2024 2:00 PM Salvador Hill [facility] Laboratory [facility] 03/27/2024 2:00 PM Lizbeth Madison CRNP Hematology/Oncology [facility] Outpatient Follow Up Basic Metabolic Panel CBC Other Information Indwelling Devices: LINES ALL Duration Peripheral Line Left;Lower Arm 24 Gauge 8 days Vital Signs (last recorded): Most Recent Systolic BP: 93 mmHg (08/26/23399) Most Recent Diastolic BP: 49 mmHg (08/26/23399) Pulse: 75 (08/26/23399) Resp: 20 (08/26/23399) Most Recent Temperature: 36.78 C (08/26/23399) Weight: 87.5 kg (192 lb 14.4 oz) (08/26/23599) SpO2: 97 % (08/26/23399) O2 flow rate: 0 L/MIN (08/24/231999) Allergies: Dichloralphenazone, Isometheptene, and Midrin Activity: weight bearing as tolerated of RLE and LLE Diet: cardiac diet Code Status: Full Code Condition on Discharge: stable Isolation status: None Cognition: normal HOSPITAL CONSULTS ORDERED: ADULT OCCUPATIONAL THERAPY CONSULT IP ADULT PHYSICAL THERAPY CONSULT IP CARE MANAGEMENT CONSULT IP BLOOD MANAGEMENT CONSULT IP REFERRING PHYSICIAN: Ref: JOSÉ DOUGHERTY III[[id number]] [address] [place] [address] (office) [phone] (fax) PRIMARY CARE PROVIDER: PCP: José Dougherty III, MD [address] / [place] [address] (office) [phone] (fax) Note: To contact a physician responsible for this patients hospital care, please call [facility] [phone]. Associated attestation - Anahi Chappell MD - 08/26/2023 10:50 AM EDT I did not see the patient, but I have reviewed the resident/fellow physician documentation and was readily available on date of service. I saw her and spoke with her but did not examine her. Stable. Ready for discharge when ride comes this am. No billable CCM time today documented in this encounter Discharge Instructions * Discharge Instr - AVS* Lesli Bates MD - 08/14/2023 2:57 PM EDT Images from the original note were not included. Discharge Date: 08/26/2023 Brief summary of inpatient care: Elsa Reyes was admitted to [facility] on 08/17/2023 with elective bilateral hip replacements from home. Ms. Reyes was noted to have a drop in blood pressure during and following the surgery and a drop in hemoglobin and was ordered 2u blood transfusion immediately after the surgery and was admitted to the CICU due to pressor requirements. Ms. Reyes required 2 additional blood transfusions while in the ICU and had hemoglobin remaining stable following and was able to be weaned off the pressor support while maintaining MAP >65. Ms. Reyes was given diuresis while admitted due to becoming volume up from the transfusions and fluids. Ms. Reyes was stable for discharge to rehab on 08/26/2023 The primary diagnosis at discharge was Hypovolemic Shock s/p Bilateral Hip Replacements. Elsa Reyes is being discharged to [facility] The Hospital Medicine physician(s) at the time of discharge included: Anahi Chappell MD To reach this Provider Sunday through Sunday (8:00 AM to 4:30 PM) for any questions or test results: Call [phone] For after-hours concerns: Call [phone] and have your provider paged, or the provider box person for the Department of Hospital Medicine paged. Inpatient test results pending: none Operations & Procedures: 08/17/23 - Bilateral Hip Replacements Code Status: Full Code Advance Directive Documentation: Advance Directive Does the Patient have an Advance Directive? No Diet: Heart healthy diet Activity: Weight bearing status - as tolerated of RLE and LLE Elsa should continue the following therapies: Physical Therapy and Occupational Therapy Isolation Status: None Mentation at Discharge: normal Future Studies Required: none, BMP: date - 1 week post discharge, and CBC: date - 1 week post discharge Respiratory Support at Discharge: none PRIMARY CARE PROVIDER: PCP: José Dougherty III, MD [address] [place] [address] / [facility] [phone] (office) [phone] (fax) - Call your primary care physician or seek medical attention if you have any worsening symptoms. Please have the patient return to the Emergency Department for any of the following: chest pain, chest pressure, chest tightness, difficulty breathing, vomiting. The patient should not smoke or use tobacco products in any way! MEDICATIONS: START TAKING: doxycycline hyclate 100 MG Capsule Famotidine 20 MG Tablet oxyCODONE 5 MG immediate release tablet Vitamin 27-0.8 MG Tabs Senna 8.6 MG Caps STOP TAKING: Abrysvo 120 MCG/0.5ML Solr injection (RSV Pre-Fusion F A&B Vac Rcmb) Calcium 600+D Plus Minerals 600-400 MG-UNIT Chew chlorhexidine gluconate 4% 4 % external liquid (Hibiclens) Indapamide 1.25 MG Tablet mupirocin calcium 2 % ointment (Bactroban) traMADol 50 MG Tablet (Ultram) Vitamin D (Cholecalciferol) 25 MCG (1000 UT) Caps Discharge Date: 08/26/2023 You may call Doctor Cochran of the Department of Orthopaedic Surgery at [facility]: [phone] during business hours. For after hours emergencies, call [facility]: [phone] and have the Orthopaedic Surgeon box person paged. The information below provides you with instructions and a list of medications you need to take following your discharge from the hospital. If you have any questions, please ask before leaving. Please bring these papers with you to your next appointment. If you have questions, you can reach us at the numbers above. Brief summary of your inpatient care: Bilateral total hip replacement. Following hip or knee replacement surgery, the [employer] recommends that preventative antibiotics be considered prior to procedures which could introduce bacteria into your bloodstream. This includes procedures such as dental, oral, respiratory tract, or esophageal procedures. Your doctors during this hospitalization included: Dr. Cochran Diet: Resume Pre-op diet Activity: weight-bearing as tolerated Driving: Do not drive. Date you may return to work or school: To be determined by your physician. See your primary care physician (José Dougherty III, MD) as needed. Special Instructions: TOTAL HIP REPLACEMENT INSTRUCTIONS POSITIONAL RESTRICTIONS: Reduces early risk of hip dislocation; critical the first 3 months. IN GENERAL: No crossing legs (keep knees slightly apart). No extreme rotation (internal or external) positions of thigh, leg or foot. Avoid deep, soft chairs and avoid leaning forward in chair when rising. For POSTERIOR hip replacements: Do not bend (flex) hip greater than 90 degrees. For ANTERIOR hip replacements: Do not hyperextend at the hip (example: do not reach back overhead) and avoid turning foot outward whenever possible. SLEEP: Avoid 'stomach' sleeping and try to sleep on your back for first 3 months, if possible. You may roll onto your NON-OPERATIVE side with a pillow between thighs and knees. MEASURES TO REDUCE BLOOD CLOT RISK: Especially important during first month. Take one 81 mg aspirin every 12 hours for 12 weeks. TWO (2) SIMPLE EXERCISES: Perform these exercises slowly and carefully. 1. TOE RAISES Holding on to your walker, back of a chair, SLOWLY raise up on your toes, hold for 3 seconds, then set your foot back down. Do 10 of these in a row, rest 1 minute, then perform 10 more. Rest another 1 minute, then perform another 10 in a row. Perform this exercise twice a day (example: morning and evening). 2. WALKING Use walker for safety until strength of hip muscles allows safe use of cane. Try to walk a few minutes every hour during waking hours. OPERATIVE SITE DRESSING: Incision dressing (bandage): Keep bandage in place. Do not remove. Reinforce as needed. Do not shower or submerge. Sponge bathe only. A small amount blood stain is normal and is expected. However, please call the office if a significant amount of fluid builds beneath the dressing, or if you have any dressing/bandage concerns. Apply some ice to the hip area for 30 minutes a few times daily; this may help reduce swelling. You can expect some bruising around incisional area. This is normal. FOLLOW - UP INSTRUCTIONS: A post-operative follow-up visit usually within 7 to 10 days. If questions or concerns arise call sooner at: [facility]: [phone]. Contact the Orthopaedic office at [facility]: [phone] if there is any redness, discharge or change around your surgical site. [employer] Therapeutic Instructions: To get started with [employer], you will receive a welcome email approximately 30 days prior to surgery. The [employer] email subject will be, "Access Dr. Cochran's Online Care Program." You may access [employer] in two ways: Use the link within the email to login to [employer] using your Normal login credentials. Use [email or web address] to access [employer] from your computer or tablet. If you do not have a Normal account, the link within the email will prompt you to create one. Follow the instructions and then log into your new [employer] account. When logged into your [employer] account, you will be brought directly to your daily To Do List. If you have trouble locating the welcome email from [employer] or navigating the [employer] platform, please contact [email or web address] documented in this encounter Progress Notes * Lesli Bates MD - 08/25/2023 3:49 PM EDT [facility] - PROGRESS NOTE [facility] [address] Name: Elsa Reyes Location: [facility] [id number] Date: 08/25/2023 Time: 3:49 PM PATIENT DESCRIPTION: 68yo F, PMH s/p TAVR, RBBB/conduction delay, T2DM, CKD III, HTN, HLD, bilateral degenerative hip disease admitted 08/17/23 for elective bilateral hip replacement surgery and developed post-op hypotension requiring pressor support and acute blood loss anemia. HPI/EVENTS OF NOTE: 08/16: transferred to [facility] for intra-op hypotension requiring pressor support s/p bilateral hip replacement surgery 08/17: Hb 6.1 in PM, transfused 1u pRBC 08/18: Hb 6.3, transfused 1u pRBC 08/20: IV lasix 20mg 08/21: IV lasix 40mg 08/22: bumex IV 1mg 08/23: held further diuresis due to contraction alkalosis and elevated BUN SUBJECTIVE: Overnight, no acute events. Patient seen and examined at bedside. Doing well this morning, no complaints. Endorses mild soreness of bilateral hips. Is anxious for discharge. CONSTITUTIONAL DATA: BP: 101 mmHg/59 mmHg (08/25/231199) Pulse: 90 (08/25/231199) Resp: 19 (08/25/231199) Temp: 36.61 C (08/25/231199) Temp Summary: Temp Min: 36.4 C (97.5 F) Max: 37.1 C (98.8 F) SpO2: 97 % (08/25/231199) O2 flow rate: 0 L/MIN (08/24/231999) Supplemental O2 Delivery: Room Air, None (08/25/231199) Intake/Output Summary (Last 24 hours) at 08/25/2023 1551 Last data filed at 08/25/2023 0600 Gross per 24 hour Intake 240 ml Output 500 ml Net -260 ml PHYSICAL EXAM: General: pleasant age appearing female, lying in bed, in no acute distress HEENT: normocephalic, atraumatic, sclera white, EOM intact CV: regular rate and rhythm with no murmurs, rubs or gallops Chest: clear to auscultation, no rales, rhonci, wheezing Abdomen: soft, non-distended, no tenderness to palpation. Surgical Sites: R and L hip - dressings in place, mild TTP, no bleeding or oozing noted Extremities: no LE peripheral edema Skin: warm, dry, intact Neuro: following commands, no focal neurologic deficits Psych: normal mood and affect. LABORATORY VALUES: reviewed Hb 8.1 - stable RADIOGRAPHIC STUDIES: reviewed Principal Problem: Degenerative joint disease (DJD) of hip (POA: Yes) Active Problems: HTN, goal below 140/90 (POA: Yes) Dyslipidemia, goal LDL below 130 (POA: Yes) Chronic kidney disease, stage 3a (POA: Yes) Conduction disorder of the heart (POA: Yes) RBBB (right bundle branch block) (POA: Yes) Primary osteoarthritis of both hips (POA: Unknown) Acute blood loss anemia (POA: No) Shock (HCC) (POA: Unknown) Metabolic acidosis (POA: No) POA = Present On Admission SYSTEM BASED PLAN: NEURO Analgesia/Pain -start tylenol 650mg q4h PRN for mild/moderate pain -start oxycodone 5mg q4h PRN for severe pain -discontinue oxycodone 10mg as patient has not required since 08/23 AM -continue LADLER amitriptyline RESPIRATORY Acute Hypoxic Respiratory Failure, resolved No active issues -continue IS, flutter therapy, patient driven resp protocol CARDIOVASCULAR Patient has received diuresis due to being net positive since admission, holding off additional diuresis -maintain MAP >65 -continue LADLER statin GI No acute issues. -continue bowel regimen RENAL No active issues -BMP daily INFECTIOUS DISEASE No acute issues. Doxycycline ordered by Ortho ENDOCRINE Hx T2DM No active issues HEME Acute Blood Loss Anemia s/p 4u pRBC following bilateral hip replacement surgery -daily CBC -continue heparin 5000 q8h for DVT ppx -DVT ppx per Ortho with ASA BID MSK S/p bilateral hip replacement 08/16 -PT/OT following, appreciate recs -ortho following, appreciate recs GLOBAL ISSUES: Analgesia: protocol with control Sedation: N/A Delirium/Confusion Assessment Method for ICU (CAM-ICU): CAM-ICU negative HOB Elevation: greater than 30 degress Nutrition: enteral, at goal DVT Prophylaxis: per ortho with ASA BID and heparin 5000u q8h Stress Ulcer Prophylaxis: not indicated Glycemic Control: controlled - not in protocol Central Line Necessity Reviewed: N/A Cruz: N/A Disposition: discharge to [facility] tomorrow morning at 10AM Patient's decisional capacity: has capacity to make decisions Communication with Patient/Family: spouse, Frank, updated 08/23 Goals of Care: decrease pain and discomfort Patient discussed with attending, Dr. Ta MD. Associated attestation - Anahi Chappell MD - 08/25/2023 5:54 PM EDT I saw and evaluated the patient today. I have reviewed the resident/fellow physician note and agree. No change in exam Vital signs stable Labs reviewed DX: Post bilateral hip replacement, been accepted late yesterday to inpatient rehab, today they informed us they cannot take her until tomorrow. No change in care plan Plan to D/C tomorrow. Med man time 10 min * Jose Vanegas MD - 08/24/2023 4:35 PM EDT [facility] - PROGRESS NOTE [facility] [place]-[address] [address] Name: Elsa Reyes Location: [facility] [place] [id number] Date: 08/24/2023 Time: 12:01 PM PATIENT DESCRIPTION: 68yo F, PMH s/p TAVR, RBBB/conduction delay, T2DM, CKD III, HTN, HLD, bilateral degenerative hip disease admitted 08/17/23 for elective bilateral hip replacement surgery and developed post-op hypotension requiring pressor support and acute blood loss anemia. HPI/EVENTS OF NOTE: 08/16: transferred to [facility] for intra-op hypotension requiring pressor support s/p bilateral hip replacement surgery 08/17: Hb 6.1 in PM, transfused 1u pRBC 08/18: Hb 6.3, transfused 1u pRBC 08/20: IV lasix 20mg 08/21: IV lasix 40mg 08/23: Held further diuresis due to contraction alkalosis and elevated BUN. SUBJECTIVE: Overnight, no acute events. Patient seen and examined at bedside. Reports feeling well this morning, having breakfast at time of evaluation. No complaints. CONSTITUTIONAL DATA: BP: 98 mmHg/59 mmHg (08/24/23 1200) Pulse: 88 (08/24/23 1200) Resp: 19 (08/24/23 1200) Temp: 36.61 C (08/24/23 0800) Temp Summary: Temp Min: 36.4 C (97.5 F) Max: 37 C (98.6 F) SpO2: 96 % (08/24/23 1200) O2 flow rate: 2 L/MIN (08/20/23 0400) Supplemental O2 Delivery: Room Air, None (08/24/23 1200) Intake/Output Summary (Last 24 hours) at 08/23/2023 1206 Last data filed at 08/22/2023 1800 Gross per 24 hour Intake 240 ml Output 300 ml Net -60 ml PHYSICAL EXAM: General: pleasant, age appearing female, sitting in bed, having breakfast, in no acute distress HEENT: normocephalic, atraumatic, sclera white, EOM intact CV: regular rate and rhythm with no murmurs, rubs or gallops Chest: clear to auscultation, no rales, rhonci, wheezing Abdomen: soft, non-distended, no tenderness to palpation. R and L Hip: dressings in place, no drainage or bleeding seen Extremities: trace pitting edema. Skin: warm, dry, intact Neuro: following commands, no focal neurologic deficits Psych: normal mood and affect. LABORATORY VALUES: reviewed Recent Results (from the past 24 hour(s)) BASIC METABOLIC PANEL Collection Time: 08/24/23 5:01 AM Result Value Ref Range BUN 36 (H) 6 - 20 mg/dL Creatinine 1.1 (H) 0.5 - 1.0 mg/dL Estimated Glomerular Filtration Rate 54 (L) >=60 mL/min Sodium 138 135 - 146 mmol/L Potassium 5.1 3.5 - 5.1 mmol/L Chloride 106 98 - 107 mmol/L CO2 23 22 - 32 mmol/L Anion Gap 9 7 - 15 mmol/L Glucose 113 70 - 120 mg/dL Calcium 8.5 8.4 - 10.2 mg/dL MAGNESIUM Collection Time: 08/24/23 5:01 AM Result Value Ref Range Magnesium 2.1 1.5 - 2.6 mg/dL PHOSPHORUS Collection Time: 08/24/23 5:01 AM Result Value Ref Range Phosphorus 3.1 2.5 - 4.8 mg/dL CBC Collection Time: 08/24/23 5:01 AM Result Value Ref Range WBC 14.22 (H) 4.00 - 10.80 K/uL RBC 2.82 3.85 - 5.15 M/uL HGB 8.3 (L) 12.0 - 15.3 g/dL HCT 26.2 (L) 36.0 - 45.2 % MCV 92.9 81.5 - 97.5 fL MCH 29.4 27.0 - 34.0 pg MCHC 31.7 32.0 - 36.0 g/dL RDW 16.2 11.5 - 15.5 % PLT 272 140 - 400 K/uL MPV 10.2 6.6 - 11.1 fL nRBCs 0 <=0 /100 WBCs RADIOGRAPHIC STUDIES: reviewed Principal Problem: Status post bilateral hip replacements (POA: Yes) Active Problems: HTN, goal below 140/90 (POA: Yes) Dyslipidemia, goal LDL below 130 (POA: Yes) Overview: Per Lipid Taxonomy. Chronic kidney disease, stage 3a (POA: Yes) Overview: Per CKD protocol Conduction disorder of the heart (POA: Yes) RBBB (right bundle branch block) (POA: Yes) Primary osteoarthritis of both hips (POA: Yes) Acute blood loss anemia (POA: No) Degenerative joint disease (DJD) of hip (POA: Yes) POA = Present On Admission SYSTEM BASED PLAN: NEURO Analgesia/Pain -tylenol 650mg q6h scheduled for 2 days. -continue oxycodone 5 and 10mg q4h PRN -continue LADLER amitriptyline RESPIRATORY No active issues -continue IS, flutter therapy, patient driven resp protocol CARDIOVASCULAR Volume overload, improved CAD -Holding diuresis today. -maintain MAP >65 -continue LADLER statin GI No acute issues. -continue bowel regimen RENAL No active issues -BMP daily INFECTIOUS DISEASE No acute issues. Doxycycline per Ortho ENDOCRINE DM2 - blood sugars within goal from checks on admission, have discontinued glucose checks. Cosyntropin test from 08/18 unremarkable. HEME Acute Blood Loss Anemia s/p 4u pRBC following bilateral hip replacement surgery -daily CBC -continue heparin 5000 q8h for DVT ppx -DVT ppx per Ortho with ASA BID MSK S/p bilateral hip replacement 08/16 -PT/OT following, appreciate recs -ortho following, appreciate recs GLOBAL ISSUES: Analgesia: protocol with control Sedation: N/A Delirium/Confusion Assessment Method for ICU (CAM-ICU): CAM-ICU negative HOB Elevation: greater than 30 degress Nutrition: enteral, at goal DVT Prophylaxis: heparin 5000u q8h Stress Ulcer Prophylaxis: not indicated Glycemic Control: controlled - not in protocol Central Line Necessity Reviewed: N/A Cruz: N/A Disposition: transfer to floor. Awaiting rehab authorization. Patient's decisional capacity: has capacity to make decisions Communication with Patient/Family: attempted to contact spouse, Frank, reached and left message with update Goals of Care: decrease pain and discomfort Patient discussed with attending, Dr. Ta MD. Jose Vanegas MD, MS Internal Medicine & Pediatrics PGY4 Associated attestation - Anahi Chappell MD - 08/24/2023 7:12 PM EDT I saw and evaluated the patient today. I have reviewed the resident/fellow physician note and agree. I called [facility] at 8:40 am, they finally called back at 3:10 pm, discussed, authorization for inpatient rehab given. Ride tomorrow early afternoon. Med surg status but keep on CICU on [facility] [place] since D/C tomorrow is confirmed. DX: bilat hip replacements Med man time 45 min most of it on calls with [facility] * Lesli Bates MD - 08/23/2023 12:01 PM EDT [facility] - PROGRESS NOTE [facility] [place]-[address] [id number] Name: Elsa Reyes Location: [facility] [place] [id number] Date: 08/23/2023 Time: 12:01 PM PATIENT DESCRIPTION: 68yo F, PMH s/p TAVR, RBBB/conduction delay, T2DM, CKD III, HTN, HLD, bilateral degenerative hip disease admitted 08/17/23 for elective bilateral hip replacement surgery and developed post-op hypotension requiring pressor support and acute blood loss anemia. HPI/EVENTS OF NOTE: 08/16: transferred to [facility] for intra-op hypotension requiring pressor support s/p bilateral hip replacement surgery 08/17: Hb 6.1 in PM, transfused 1u pRBC 08/18: Hb 6.3, transfused 1u pRBC 08/20: IV lasix 20mg 08/21: IV lasix 40mg SUBJECTIVE: Overnight, no acute events. Patient seen and examined at bedside. Reports feeling well this morning, having breakfast at time of evaluation. No complaints. CONSTITUTIONAL DATA: BP: 108 mmHg/68 mmHg (08/23/23 0800) Pulse: 99 (08/23/23 0800) Resp: 19 (08/23/23 0800) Temp: 37.22 C (08/23/23 08) Temp Summary: Temp Min: 36.5 C (97.7 F) Max: 37.9 C (100.2 F) SpO2: 99 % (08/23/23 08) O2 flow rate: 2 L/MIN (08/20/23 0400) Supplemental O2 Delivery: Room Air, None (08/23/23 08) Intake/Output Summary (Last 24 hours) at 08/23/2023 1206 Last data filed at 08/22/2023 1800 Gross per 24 hour Intake 240 ml Output 300 ml Net -60 ml PHYSICAL EXAM: General: pleasant, age appearing female, sitting in bed, having breakfast, in no acute distress HEENT: normocephalic, atraumatic, sclera white, EOM intact CV: regular rate and rhythm with no murmurs, rubs or gallops Chest: clear to auscultation, no rales, rhonci, wheezing Abdomen: soft, non-distended, no tenderness to palpation. R and L Hip: dressings in place, no drainage or bleeding seen Extremities: no LE peripheral edema Skin: warm, dry, intact Neuro: following commands, no focal neurologic deficits Psych: normal mood and affect. LABORATORY VALUES: reviewed Hb 8.2 - remaining stable RADIOGRAPHIC STUDIES: reviewed Principal Problem: Degenerative joint disease (DJD) of hip (POA: Yes) Active Problems: HTN, goal below 140/90 (POA: Yes) Dyslipidemia, goal LDL below 130 (POA: Yes) Chronic kidney disease, stage 3a (POA: Yes) Conduction disorder of the heart (POA: Yes) RBBB (right bundle branch block) (POA: Yes) Primary osteoarthritis of both hips (POA: Unknown) Acute blood loss anemia (POA: No) Shock (HCC) (POA: Unknown) Metabolic acidosis (POA: No) POA = Present On Admission SYSTEM BASED PLAN: NEURO Analgesia/Pain -start tylenol 650mg q6h scheduled for 2 days, plan to adjust pain regimen following decrease in oxycodone PRN use -continue oxycodone 5 and 10mg q4h PRN -continue LADLER amitriptyline RESPIRATORY Acute Hypoxic Respiratory Failure, resolved No active issues -continue IS, flutter therapy, patient driven resp protocol CARDIOVASCULAR Patient up 10L since admission and weight up 10 pounds as well, with minimal response to IV lasix 40mg, will adjust diuretic today. -bumex 1mg IV once -maintain MAP >65 -continue LADLER statin GI No acute issues. -continue bowel regimen RENAL No active issues -BMP daily INFECTIOUS DISEASE No acute issues. Doxycycline ordered by Ortho ENDOCRINE Hx T2DM, blood sugars within goal from checks on admission, have discontinued glucose checks. Cosyntropin test from 08/18 unremarkable. HEME Acute Blood Loss Anemia s/p 4u pRBC following bilateral hip replacement surgery -daily CBC -continue heparin 5000 q8h for DVT ppx -DVT ppx per Ortho with ASA BID MSK S/p bilateral hip replacement 08/16 -PT/OT following, appreciate recs -ortho following, appreciate recs GLOBAL ISSUES: Analgesia: protocol with control Sedation: N/A Delirium/Confusion Assessment Method for ICU (CAM-ICU): CAM-ICU negative HOB Elevation: greater than 30 degress Nutrition: enteral, at goal DVT Prophylaxis: per ortho with ASA BID and heparin 5000u q8h Stress Ulcer Prophylaxis: not indicated Glycemic Control: controlled - not in protocol Central Line Necessity Reviewed: N/A Cruz: N/A Disposition: transfer to floor Patient's decisional capacity: has capacity to make decisions Communication with Patient/Family: attempted to contact spouse, Frank, reached VM and left message with update Goals of Care: improve respiratory status, wean respiratory parameters, and stabilize hemodynamic status Patient discussed with attending, Dr. Ta MD. Associated attestation - Anahi Chappell MD - 08/23/2023 7:54 PM EDT I saw and evaluated the patient today. I have reviewed the resident/fellow physician note and agree. No editing needed. Trying bumex today to see if will get more effective diuresis, is up on weight c/t admit but on room air. Exam stable/unchanged. Labs reviewed. DX: post bilat hip replacements Post op acute blood loss - resolved Post op hypotension - resolved Waiting to get to inpatient rehab Med surg status Med man time 20 min * Lesli Bates MD - 08/22/2023 6:40 PM EDT [facility] - PROGRESS NOTE [facility] [place]-[address] [address] Name: Elsa Reyes Location: [facility] [place] [id number] Date: 08/22/2023 Time: 6:40 PM PATIENT DESCRIPTION: 68yo F, PMH s/p TAVR, RBBB/conduction delay, T2DM, CKD III, HTN, HLD, bilateral degenerative hip disease admitted 08/17/23 for elective bilateral hip replacement surgery and developed post-op hypotension requiring pressor support and acute blood loss anemia. HPI/EVENTS OF NOTE: 08/16: transferred to [facility] for intra-op hypotension requiring pressor suppero s/p bilateral hip replacement surgery 08/17: Hb 6.1 in PM, transfused 1u pRBC 08/18: Hb 6.3, transfused 1u pRBC 08/20: IV lasix 20mg SUBJECTIVE: Overnight, no acute events. Patient seen and examined at bedside. Remains in good spirits. No acute complaints. CONSTITUTIONAL DATA: BP: 122 mmHg/64 mmHg (08/22/23 1600) Pulse: 107 (08/22/23 1600) Resp: 16 (08/22/23 1600) Temp: 36.5 C (08/22/23 1600) Temp Summary: Temp Min: 36.5 C (97.7 F) Max: 36.7 C (98.1 F) SpO2: 99 % (08/22/23 1600) O2 flow rate: 2 L/MIN (08/20/23 0400) Supplemental O2 Delivery: Room Air, None (08/22/23 1600) Intake/Output Summary (Last 24 hours) at 08/22/2023 1841 Last data filed at 08/22/2023 1800 Gross per 24 hour Intake 1080 ml Output 1000 ml Net 80 ml PHYSICAL EXAM: General: pleasant, age appearing female, lying in bed, in no acute distress HEENT: normocephalic, atraumatic, sclera white, EOM intact CV: regular rate and rhythm with no murmurs, rubs or gallops Chest: clear to auscultation, no rales, rhonci, wheezing Abdomen: soft, non-distended, no tenderness to palpation. R and L Hip: dressings in place, C/D/I, mild TTP Extremities: no LE peripheral edema Skin: warm, dry, intact Neuro: following commands, no focal neurologic deficits Psych: normal mood and affect. LABORATORY VALUES: reviewed Hb 7.9 - improved RADIOGRAPHIC STUDIES: reviewed Principal Problem: Degenerative joint disease (DJD) of hip (POA: Yes) Active Problems: HTN, goal below 140/90 (POA: Yes) Dyslipidemia, goal LDL below 130 (POA: Yes) Chronic kidney disease, stage 3a (POA: Yes) Conduction disorder of the heart (POA: Yes) RBBB (right bundle branch block) (POA: Yes) Primary osteoarthritis of both hips (POA: Unknown) Acute blood loss anemia (POA: No) Shock (HCC) (POA: Unknown) Metabolic acidosis (POA: No) POA = Present On Admission SYSTEM BASED PLAN: NEURO Analgesia/Pain -continue tylenol 975mg q6h -continue oxycodone 5 and 10mg q4h PRN -continue LADLER amitriptyline RESPIRATORY Acute Hypoxic Respiratory Failure, resolved Patient doing well on room air -continue IS, flutter therapy, patient driven resp protocol CARDIOVASCULAR Hypovolemic hypotension following bilateral hip replacement. Patient remains net positive close to 10L since admission without adequate response to IV lasix 20mg, will increase dose. -lasix IV 40mg once -maintain MAP >65 -continue LADLER statin GI No acute issues. -continue bowel regimen RENAL No active issues -BMP daily INFECTIOUS DISEASE No acute issues. Doxycycline ordered by Ortho ENDOCRINE Hx T2DM, goal blood sugar 140-180 during admission -glucose checks ordered -start sliding scale if indicated -holding LADLER metformin HEME Acute Blood Loss Anemia. Patient is s/p 4u pRBC following procedure. -daily CBC -continue heparin 5000 q8h for DVT ppx -DVT ppx per Ortho with ASA BID MSK S/p bilateral hip replacement 08/16 -PT/OT following, appreciate recs -ortho following, appreciate recs GLOBAL ISSUES: Analgesia: protocol with control Sedation: N/A Delirium/Confusion Assessment Method for ICU (CAM-ICU): CAM-ICU negative HOB Elevation: greater than 30 degress Nutrition: enteral, at goal DVT Prophylaxis: per ortho with ASA BID and heparin 5000u q8h Stress Ulcer Prophylaxis: not indicated Glycemic Control: controlled - not in protocol Central Line Necessity Reviewed: N/A Cruz: N/A Disposition: transfer to floor Patient's decisional capacity: has capacity to make decisions Communication with Patient/Family: spouse, Frank updated 08/20 Goals of Care: improve respiratory status, wean respiratory parameters, and stabilize hemodynamic status Patient discussed with attending, Dr. Ta MD. Associated attestation - Anahi Chappell MD - 08/22/2023 10:35 PM EDT I saw and evaluated the patient today. I have reviewed the resident/fellow physician note and agree. Eating dinner at time of my exam HR 118 Sinus tachy Paler than yesterday Rest of exam unchanged She feels better CBC this evening Hgb up to 8.6 from 7.9 and HR down to 103 Med surg status Ready for transfer to inpatient rehab DX: Bilateral hip replacements Post op acute blood loss anemia, no active bleeding at this time. Med man time 25 min * Lesli Bates MD - 08/21/2023 3:10 PM EDT [facility] - PROGRESS NOTE [facility] [place]-[address] [address] Name: Elsa Reyes Location: [facility] [place] [id number] Date: 08/21/2023 Time: 3:10 PM PATIENT DESCRIPTION: 68yo F, PMH s/p TAVR, RBBB/conduction delay, T2DM, CKD III, HTN, HLD, bilateral degenerative hip disease admitted 08/17/23 for elective bilateral hip replacement surgery and developed post-op hypotension requiring pressor support and acute blood loss anemia. HPI/EVENTS OF NOTE: 08/16: transferred to [facility] for intra-op hypotension requiring pressor suppero s/p bilateral hip replacement surgery 08/17: Hb 6.1 in PM, transfused 1u pRBC 08/18: Hb 6.3, transfused 1u pRBC SUBJECTIVE: Overnight, Hb 7.0 and this AM of 7.4. Patient off of levophed since 9am 08/19. Seen and examined at bedside. Feeling well, having mild pain at surgical site, has had 2 bowel movements today. No additional concerns. CONSTITUTIONAL DATA: BP: 118 mmHg/75 mmHg (08/21/23 1200) Pulse: 98 (08/21/23 1200) Resp: 22 (08/21/231199) Temp: 36.72 C (08/21/231199) Temp Summary: Temp Min: 36.5 C (97.7 F) Max: 37.1 C (98.8 F) SpO2: 98 % (08/21/231199) O2 flow rate: 2 L/MIN (08/20/23 0400) Supplemental O2 Delivery: Room Air, None (08/21/231199) Intake/Output Summary (Last 24 hours) at 08/21/2023 1517 Last data filed at 08/21/2023 0850 Gross per 24 hour Intake 720 ml Output 1350 ml Net -630 ml PHYSICAL EXAM: General: pleasant, age appearing female, lying in bed, in no acute distress HEENT: normocephalic, atraumatic, sclera white, EOM intact CV: regular rate and rhythm with no murmurs, rubs or gallops Chest: clear to auscultation, no rales, rhonci, wheezing Abdomen: soft, non-distended, no tenderness to palpation. Extremities: no LE peripheral edema Surgical Sites: R and L hip - dressings in place, C/D/I, no oozing or bleeding noted Skin: warm, dry, intact Neuro: following commands, no focal neurologic deficits Psych: normal mood and affect. LABORATORY VALUES: reviewed Hb 7.4 - stable RADIOGRAPHIC STUDIES: reviewed Principal Problem: Degenerative joint disease (DJD) of hip (POA: Yes) Active Problems: HTN, goal below 140/90 (POA: Yes) Dyslipidemia, goal LDL below 130 (POA: Yes) Chronic kidney disease, stage 3a (POA: Yes) Conduction disorder of the heart (POA: Yes) RBBB (right bundle branch block) (POA: Yes) Primary osteoarthritis of both hips (POA: Unknown) Acute blood loss anemia (POA: No) Shock (HCC) (POA: Unknown) Metabolic acidosis (POA: No) POA = Present On Admission SYSTEM BASED PLAN: NEURO Analgesia/Pain -continue tylenol 975mg q6h -continue oxycodone 5 and 10mg q4h PRN -continue LADLER amitriptyline RESPIRATORY Acute Hypoxic Respiratory Failure, resolved -continue IS, flutter therapy, patient driven resp protocol CARDIOVASCULAR Hypovolemic hypotension following bilateral hip replacement. Stable off levophed for >24 hours. Patient is net positive 9L since admission, will given dose of lasix. -lasix IV 20mg once -maintain MAP >65 -continue LADLER statin GI No acute issues. -continue bowel regimen RENAL No active issues -BMP daily INFECTIOUS DISEASE No acute issues. Doxycycline ordered by Ortho ENDOCRINE Hx T2DM, goal blood sugar 140-180 during admission -glucose checks ordered -start sliding scale if indicated -holding LADLER metformin HEME Acute Blood Loss Anemia. Patient is s/p 4u pRBC following procedure. -daily CBC -start heparin 5000 q8h -DVT ppx per Ortho with ASA BID MSK S/p bilateral hip replacement 08/16 -PT/OT following, appreciate recs -ortho following, appreciate recs GLOBAL ISSUES: Analgesia: protocol with control Sedation: N/A Delirium/Confusion Assessment Method for ICU (CAM-ICU): CAM-ICU negative HOB Elevation: greater than 30 degress Nutrition: enteral, at goal DVT Prophylaxis: per ortho Stress Ulcer Prophylaxis: not indicated Glycemic Control: controlled - not in protocol Central Line Necessity Reviewed: N/A Cruz: N/A Disposition: transfer to floor Patient's decisional capacity: has capacity to make decisions Communication with Patient/Family: updated spouse, Frank, at bedside Goals of Care: improve respiratory status, wean respiratory parameters, and stabilize hemodynamic status Patient discussed with attending, Dr. Ta MD. Associated attestation - Anahi Chappell MD - 08/21/2023 9:15 PM EDT I saw and evaluated the patient today. I have reviewed the resident/fellow physician note and agree. No editing needed. Did not get enough diuresis with am dose lasix, ordering 40 mg IV now. Exam unchanged. BP stable today, on room air all day. Cotrosyn stim test normal on 08/18 DX: Post bilateral hip replacements Post hypotension resolved. Bowel regimen increased today Med surg status Med man time 25 min * Lesli Bates MD - 08/20/2023 7:01 AM EDT CCM - PROGRESS NOTE [facility] [place]-[address] [address] Name: Elsa Reyes Location: [facility] [id number] Date: 08/20/2023 Time: 7:01 AM PATIENT DESCRIPTION: Patient is a 68 year old female PMH HTN, HLD, aortic stenosis s/p TAVR, hx of conduction delay/RBBB, hx of PE, type 2 diabetes mellitus, CKD stage III, hx of breast cancer, bilateral degenerative joint disease of the hip [facility] [facility] [place] 08/17[place]23 for bilateral hip replacement surg geno. Extubated in PACU. Patient developed post op hypotension, transfused with 2 U PRBCs, transferred to [facility] for further medical management on norepi infusion. HPI/EVENTS OF NOTE: 08/16: transferred to [facility] for intra-op hypotension requiring pressor suppero s/p bilateral hip replacement surgery 08/17: Hb 6.1 in PM, transfused 1u pRBC SUBJECTIVE: Overnight, Hb 6.3, patient given 1u pRBC and repeat Hb of 7.4. Patient seen and examined at bedside. No acute complaints, states she is feeling well with no concerns. CONSTITUTIONAL DATA: BP: 107 mmHg/61 mmHg (08/20/2345) Pulse: 86 (08/20/23 07) Resp: 15 (08/20/23699) Temp: 36.11 C (08/20/23 0400) Temp Summary: Temp Min: 36.1 C (97 F) Max: 37.8 C (100.1 F) SpO2: 100 % (08/20/23699) O2 flow rate: 2 L/MIN (08/20/23 0400) Supplemental O2 Delivery: Room Air, None (08/20/23699) Intake/Output Summary (Last 24 hours) at 08/20/2023 1657 Last data filed at 08/20/2023 1500 Gross per 24 hour Intake 2595.01 ml Output 1550 ml Net 1045.01 ml PHYSICAL EXAM: General: pleasant, age appearing female, sitting in bed, in no acute distress HEENT: normocephalic, atraumatic, sclera white, EOM intact CV: regular rate and rhythm with no murmurs, rubs or gallops Chest: clear to auscultation, no rales, rhonci, wheezing Abdomen: soft, non-distended, no tenderness to palpation. Surgical Sites: R and L hip - +mild TTP, C/D/I, dressings in place, no active bleeding or drainage Extremities: no LE peripheral edema Skin: warm, dry, intact Neuro: following commands, no focal neurologic deficits Psych: normal mood and affect. LABORATORY VALUES: reviewed 08/19/23 17:18 08/19/23 22:12 08/20/23 04:19 WBC 17.38 (H) 12.83 (H) 16.95 (H) RBC 2.40 2.11 2.47 HGB 7.0 (L) 6.3 (L) 7.4 (L) HCT 21.4 (L) 19.5 (L) 21.9 (L) MCV 89.2 92.4 88.7 MCH 29.2 29.9 30.0 MCHC 32.7 32.3 33.8 RDW 15.3 15.6 15.6 PLT 119 (L) 101 (L) 108 (L) MPV 10.1 10.5 10.9 RADIOGRAPHIC STUDIES: reviewed Principal Problem: Degenerative joint disease (DJD) of hip (POA: Yes) Active Problems: HTN, goal below 140/90 (POA: Yes) Dyslipidemia, goal LDL below 130 (POA: Yes) Chronic kidney disease, stage 3a (POA: Yes) Conduction disorder of the heart (POA: Yes) RBBB (right bundle branch block) (POA: Yes) Primary osteoarthritis of both hips (POA: Unknown) Acute blood loss anemia (POA: No) Shock (HCC) (POA: Unknown) Metabolic acidosis (POA: No) POA = Present On Admission SYSTEM BASED PLAN: NEURO Analgesia/Pain -continue tylenol 975mg q6h -continue oxycodone 5 and 10mg q4h PRN -continue LADLER amitriptyline RESPIRATORY Acute Hypoxic Respiratory Failure, resolved. Patient doing well on room air. -continue IS, flutter therapy, patient driven resp protocol CARDIOVASCULAR Hypovolemic hypotension following bilateral hip replacement. Patient requiring pressor support previously but has been weaned off this AM and maintaining MAP. -wean levophed as able, maintain MAP >65 -continue LADLER statin GI No acute issues. -increase bowel regimen, no documented bowel movements since admission RENAL Hypovolemic Hypotension likely in setting of acute blood loss anemia Metabolic acidosis, resolved -BMP daily INFECTIOUS DISEASE No acute issues. Doxycycline ordered by Ortho ENDOCRINE Hx T2DM, goal blood sugar 140-180 during admission -glucose checks ordered -start sliding scale if indicated -holding LADLER metformin HEME Acute Blood Loss Anemia. Patient is s/p 4u pRBC following procedure. -CBC at 1999 and repeat in AM -transfuse for Hb <7 -DVT ppx per Ortho with ASA BID MSK S/p bilateral hip replacement 08/16 -PT/OT consulted, appreciate recs -ortho following, appreciate recs GLOBAL ISSUES: Analgesia: protocol with control Sedation: N/A Delirium/Confusion Assessment Method for ICU (CAM-ICU): CAM-ICU negative HOB Elevation: greater than 30 degress Nutrition: enteral, at goal DVT Prophylaxis: per ortho Stress Ulcer Prophylaxis: not indicated Glycemic Control: controlled - not in protocol Central Line Necessity Reviewed: N/A Cruz: will remove Disposition: transfer to floor Patient's decisional capacity: has capacity to make decisions Communication with Patient/Family: will update Goals of Care: improve respiratory status, wean respiratory parameters, and stabilize hemodynamic status Patient discussed with attending, Dr. Ta MD. Associated attestation - Anahi Chappell MD - 08/20/2023 10:19 PM EDT I saw and evaluated the patient today. I have reviewed the resident/fellow physician note and agree. No editing needed. Off pressor since 8-9 am. Hgb 7.4, 7.0 today Feels improved, confirms she looks better than over the weekend. CV RRR no m PULM quiet equal breath sounds ABDO + BS, obese, soft, nontender Bilat hip incisions covered with dressings, no fresh blood on either dressing. Thighs soft to palpation, no bruising to inspection. ABductor pillow present between legs. Skin warm, dry LExt toes warm, well perfused Labs reviewed. ICU DX Post operative hypotension due to blood loss, vasoplegia, appears resolved today. Med surg status, per Ortho to go to Hospital Medicine on transfer from CICU [facility] [place]. IV venofer given today. Med man time 25 min * Lesli Bates MD - 08/19/2023 3:47 PM EDT [facility] - PROGRESS NOTE [facility] [place] [id number] Name: Elsa Reyes Location: [facility] [place] [id number] Date: 08/19/2023 Time: 3:47 PM PATIENT DESCRIPTION: Patient is a 68 year old female PMH HTN, HLD, aortic stenosis s/p TAVR, hx of conduction delay/RBBB, hx of PE, type 2 diabetes mellitus, CKD stage III, hx of breast cancer, bilateral degenerative joint disease of the hip presented to [facility] [place] 08/17/23 for bilateral hip replacement surg geno. Extubated in PACU. Patient developed post op hypotension, transfused with 2 U PRBCs, transferred to [facility] for further medical management on norepi infusion. HPI/EVENTS OF NOTE: 08/16: transferred to [facility] for intra-op hypotension requiring pressor suppero s/p bilateral hip replacement surgery 08/17: Hb 6.1 in PM, transfused 1u pRBC SUBJECTIVE: Overnight, no acute events. Patient seen and examined at bedside. Reports feeling well with no acute concerns. Reports slight tenderness at surgical sites. Tolerating diet, denies fever, chills, nausea, vomiting. CONSTITUTIONAL DATA: BP: 88 mmHg/76 mmHg (08/19/23 1500) Pulse: 100 (08/19/23 1500) Resp: 20 (08/19/23 1500) Temp: 37 C (08/19/23 1200) Temp Summary: Temp Min: 36.7 C (98.1 F) Max: 37.8 C (100 F) SpO2: 96 % (08/19/23 1500) O2 flow rate: 0 L/MIN (08/19/23 1100) Supplemental O2 Delivery: Room Air, None (08/19/23 1500) Intake/Output Summary (Last 24 hours) at 08/19/2023 1551 Last data filed at 08/19/2023 1400 Gross per 24 hour Intake 2318.74 ml Output 1395 ml Net 923.74 ml PHYSICAL EXAM: General: pleasant, age appearing female, sitting in bed, +pallor, in no acute distress HEENT: normocephalic, atraumatic, sclera white, EOM intact CV: regular rate and rhythm with no murmurs, rubs or gallops Chest: clear to auscultation, no rales, rhonci, wheezing Abdomen: soft, non-distended, no tenderness to palpation. Surgical Sites: C/D/I, no active bleeding or drainage noted, +mild TTP Extremities: no LE peripheral edema Skin: warm, dry, intact Neuro: following commands, no focal neurologic deficits Psych: normal mood and affect. LABORATORY VALUES: reviewed 08/19/23 04:50 08/19/23 09:33 WBC 17.51 (H) 18.07 (H) RBC 2.81 2.73 HGB 8.3 (L) 8.0 (L) HCT 24.8 (L) 24.4 (L) MCV 88.3 89.4 MCH 29.5 29.3 MCHC 33.5 32.8 RDW 15.1 15.4 PLT 112 (L) 126 (L) MPV 10.8 10.9 RADIOGRAPHIC STUDIES: reviewed Principal Problem: Degenerative joint disease (DJD) of hip (POA: Yes) Active Problems: HTN, goal below 140/90 (POA: Yes) Dyslipidemia, goal LDL below 130 (POA: Yes) Chronic kidney disease, stage 3a (POA: Yes) Conduction disorder of the heart (POA: Yes) RBBB (right bundle branch block) (POA: Yes) Primary osteoarthritis of both hips (POA: Unknown) Acute blood loss anemia (POA: No) Shock (HCC) (POA: Unknown) Metabolic acidosis (POA: No) POA = Present On Admission SYSTEM BASED PLAN: NEURO Analgesia/Pain -continue tylenol 975mg q6h -continue oxycodone 5 and 10mg q4h PRN -continue LADLER amitriptyline RESPIRATORY Acute Hypoxic Respiratory Failure, resolved. Patient weaned to room air this AM with O2 sats at goal -continue IS, flutter therapy, patient driven resp protocol CARDIOVASCULAR Hypovolemic hypotension following bilateral hip replacement. Patient with pressor requirement following procedure and is s/p 3u pRBC, likely due to acute blood loss anemia. Received 1.5L bolus of IVF6/8. Is currently on levophed at 5mcg/hr. Will POCUS today and give IVF if indicated -wean levophed as able, maintain MAP >65 -will obtain cortisol level as patient continued on pressor support -continue LADLER statin GI No acute issues. Will dc famotidine as patient is not indicated for stress ulcer prophylaxis, has diet in place -discontinue famotidine -increase bowel regimen, no documented bowel movements since admission RENAL Hypovolemic Hypotension likely in setting of acute blood loss anemia Metabolic acidosis, resolved -BMP daily INFECTIOUS DISEASE No acute issues. Doxycycline ordered by Ortho ENDOCRINE Hx T2DM, goal blood sugar 140-180 during admission -glucose checks ordered -start sliding scale if indicated -holding LADLER metformin HEME Acute Blood Loss Anemia. Patient is s/p 3u pRBC following procedure. Drop in Hb to 6.1 from 9.3 yesterday afternoon. Likely in setting of recent surgery. Patient received transfusion with improvementand stabilization in Hb following and on additional checks. -CBC at 1800 today and repeat in AM -DVT ppx per Ortho with ASA BID MSK S/p bilateral hip replacement 08/16 -PT/OT consulted, appreciate recs -ortho following, appreciate recs GLOBAL ISSUES: Analgesia: protocol with control Sedation: N/A Delirium/Confusion Assessment Method for ICU (CAM-ICU): CAM-ICU negative HOB Elevation: greater than 30 degress Nutrition: enteral, at goal DVT Prophylaxis: per ortho Stress Ulcer Prophylaxis: not indicated Glycemic Control: controlled - not in protocol Central Line Necessity Reviewed: N/A Cruz: will remove Disposition: keep in ICU Patient's decisional capacity: has capacity to make decisions Communication with Patient/Family: will update Goals of Care: improve respiratory status, wean respiratory parameters, and stabilize hemodynamic status Patient discussed with attending, Dr. Chepe MD. Associated attestation - Pascual Mo MD - 08/19/2023 5:21 PM EDT I saw and evaluated the patient today. I have reviewed the resident/fellow physician note and agree. No issues overnight. Continues on levophed on fluctuating low dose levo, on 3mcg/min this AM. Breathing comfortably on RA with SpO2 93-94%. Surgical site stable, pain slowly improving. No obvious bleeding and compartments soft and less TTP compared to yesterday Hgb stable after transfusion last evening. Assessment: -Post-op hypotension, no evidence of end organ malperfusion. Lactate WNL, renal function at baseline, etc. Suspect related to ABLA, intravascular volume delpetion and equilibration -NAGMA -S/p b/l hip replacement -post-op ABLA - hx of severe s/p TAVR, RBBB, HTN, HLD, DM2, CKD3 Plan: - routine delirium precautions, area captain neuropsych meds. Multimodal pain control with standing tylenol,oxycodone PRN pain. Pain seems adequately controlled. - Continue levophed and wean for MAP 65. POCUS suggestive of ongoing volume responsiveness, give crystalloid bolus and follow hemodynamics. Cont area captain bASA - breathing comfortably on RA. Respiratory driving protocol, IS/FT - PO diet. Bowel regimen. - follow UOP, renal function and replete lytes as needed. UOP adequate - follow BS on BMP and PRN. Start SSI if indicated -ortho requesting 6 week course of doxy, can discuss with ID tomorrow if that long of duration is needed - vte ppx with bASA bid per ortho. Follow hgb - Weight bearing per ortho. Pt/ot and oob. For further details, documentation and management plan please see the medical trainee's note. This note was completed in part utilizing [employer] Speech Voice Recognition Software. Grammatical errors, random word insertions, pronoun errors and incomplete sentences are an occasional consequence of this system due to software limitations, ambient noise and hardware issues. Please directly address the provider for any questions or concerns about the context, text or information contained within the body of this note. Disposition: keep in ICU I have provided critical care diagnostic services for circulatory failure and therapeutic services with volume resuscitation, frequent vasoactive agent adjustments, frequent evaluation and titration of therapies for this patient on the date referenced above. Time devoted to patient care services described in this note equal: 40 minutes total critical care time exclusive of time spent performing procedures or time spent by another provider or resident. * Lesli Bates MD - 08/18/2023 7:11 AM EDT CCM - PROGRESS NOTE [facility] [place]-[address] [id number] Name: Elsa Reyes Location: [facility] [place] [id number] Date: 08/18/2023 Time: 7:12 AM PATIENT DESCRIPTION: Patient is a 68 year old female PMH HTN, HLD, aortic stenosis s/p TAVR, hx of conduction delay/RBBB, hx of PE, type 2 diabetes mellitus, CKD stage III, hx of breast cancer, bilateral degenerative joint disease of the hip presented to [facility] [place] 08/17/23 for bilateral hip replacement surg geno. Extubated in PACU. Patient developed post op hypotension, transfused with 2 U PRBCs, transferred to [facility] for further medical management on norepi infusion. HPI/EVENTS OF NOTE: 08/16: transferred to [facility] for intra-op hypotension requiring pressor suppero s/p bilateral hip replacement surgery SUBJECTIVE: Patient seen and examined at bedside. Reports feeling well and pain being controlled with medications, no acute complaints. Tolerating diet, breakfast received during time of evaluation. Is on 2L NC during evaluation. Denies shortness of breath, chest pain, nausea, vomiting. CONSTITUTIONAL DATA: BP: 109 mmHg/50 mmHg (08/18/23629) Pulse: 95 (08/18/23629) Resp: 18 (08/18/23629) Temp: 36 C (08/18/23 0400) Temp Summary: Temp Min: 35.8 C (96.4 F) Max: 36.5 C (97.7 F) SpO2: 99 % (08/18/23629) O2 flow rate: 2 L/MIN (08/18/23599) Supplemental O2 Delivery: Nasal Cannula (08/18/23599) Intake/Output Summary (Last 24 hours) at 08/18/2023 1145 Last data filed at 08/18/2023 1100 Gross per 24 hour Intake 9224.48 ml Output 2320 ml Net 6904.48 ml PHYSICAL EXAM: General: pleasant, age appearing, +pallor, sitting in bed, in no acute distress HEENT: normocephalic, atraumatic, sclera white, EOM intact CV: regular rate and rhythm with no murmurs, rubs or gallops Chest: clear to auscultation, no rales, rhonci, wheezing Abdomen: soft, non-distended, no tenderness to palpation. Surgical Site: dressings in place, no hematoma appreciated, no active bleeding or oozing noted on dressing Extremities: no LE peripheral edema Skin: warm, dry, intact Neuro: following commands, no focal neurologic deficits Psych: normal mood and affect. LABORATORY VALUES: reviewed 08/17/23 23:42 08/18/23 03:13 WBC 26.46 (H) 28.43 (H) RBC 3.08 3.21 HGB 9.1 (L) 9.3 (L) HCT 27.2 (L) 28.1 (L) MCV 88.3 87.5 MCH 29.5 29.0 MCHC 33.5 33.1 RDW 14.2 14.3 PLT 160 176 MPV 9.9 10.3 RADIOGRAPHIC STUDIES: reviewed Principal Problem: Degenerative joint disease (DJD) of hip (POA: Yes) Active Problems: HTN, goal below 140/90 (POA: Yes) Dyslipidemia, goal LDL below 130 (POA: Yes) Chronic kidney disease, stage 3a (POA: Yes) Conduction disorder of the heart (POA: Yes) RBBB (right bundle branch block) (POA: Yes) Primary osteoarthritis of both hips (POA: Unknown) Acute blood loss anemia (POA: No) Shock (HCC) (POA: Unknown) Metabolic acidosis (POA: No) POA = Present On Admission SYSTEM BASED PLAN: NEURO Analgesia/Pain -continue tylenol 975mg q6h -continue oxycodone 5 and 10mg q4h PRN -discontinue dilaudid 0.2mg PRN -continue LADLER amitriptyline RESPIRATORY Acute Hypoxic Respiratory Failure. Patient requiring 2L NC, has been weaned off but with decline inO2 sats into 80s. -continue LFNC, wean as able for goal spO2 >92% -continue IS, flutter therapy, patient driven resp protocol CARDIOVASCULAR Hypovolemic hypotension following bilateral hip replacement. Patient with pressor requirement following procedure and is s/p 2u pRBC. Likely acute blood loss anemia following surgery. POCUS performedwith evidence of volume depletion. -currently on isolyte 100/hr -wean levophed as able, maintain MAP >65 -isolyte 1L bolus ordered -continue LADLER statin GI Started diet this AM -continue bowel regimen -famotidine for stress ulcer ppx previously RENAL Hypovolemic Hypotension likely in setting of acute blood loss anemia Metabolic acidosis -isolyte 1L bolus ordered -BMP daily INFECTIOUS DISEASE No acute issues. Doxycycline ordered by Ortho ENDOCRINE Hx T2DM -glucose checks ordered -start sliding scale if indicated -holding LADLER metformin HEME Acute Blood Loss Anemia. Patient is s/p 2u pRBC following procedure. Hb stable this AM 9.3 from 9.1. -continue CBC daily -DVT ppx per Ortho with ASA BID MSK S/p bilateral hip replacement 08/16 -PT/OT consulted, appreciate recs -ortho following, appreciate recs GLOBAL ISSUES: Analgesia: protocol with control Sedation: N/A Delirium/Confusion Assessment Method for ICU (CAM-ICU): CAM-ICU negative HOB Elevation: greater than 30 degress Nutrition: enteral, at goal DVT Prophylaxis: per ortho Stress Ulcer Prophylaxis: histamine 2 antagonist Glycemic Control: controlled - not in protocol Central Line Necessity Reviewed: N/A Cruz: reviewed and needed Disposition: keep in ICU Patient's decisional capacity: has capacity to make decisions Communication with Patient/Family: will update Goals of Care: improve respiratory status, wean respiratory parameters, and stabilize hemodynamic status Patient discussed with attending, Dr. Chepe MD. Associated attestation - Pascual Mo MD - 08/18/2023 3:19 PM EDT I saw and evaluated the patient today. I have reviewed the resident/fellow physician note and agree. Assessment: -Post-op hypotension, no evidence of end organ malperfusion. Lactate WNL, renal function at baseline, etc. Suspect related to ABLA, intravascular volume delpetion and spinal anesthesia -NAGMA -S/p b/l hip replacement -post-op ABLA Plan: - routine delirium precautions, area captain neuropsych meds. Multimodal pain control with standing tylenol,oxycodone PRN pain but can d/c dilaudid as not being required. Pain seems adequately controlled. - Continue levophed and wean for MAP 65. POCUS suggestive of ongoing volume responsiveness, give crystalloid bolus and follow hemodynamics. Cont area captain bASA - cont LFNC and wean as able. Respiratory driving protocol, IS/FT - PO diet. Bowel regimen. - follow UOP, renal function and replete lytes as needed. UOP adequate - follow BS on BMP and PRN. Start SSI if indicated - post-op doxy x 6 weeks per ortho - vte ppx with bASA bid per ortho. Follow hgb - Weight bearing per ortho. Pt/ot and oob. For further details, documentation and management plan please see the medical trainee's note. This note was completed in part utilizing [employer] Speech Voice Recognition Software. Grammatical errors, random word insertions, pronoun errors and incomplete sentences are an occasional consequence of this system due to software limitations, ambient noise and hardware issues. Please directly address the provider for any questions or concerns about the context, text or information contained within the body of this note. Disposition: keep in ICU I have provided critical care diagnostic services for circulatory failure and therapeutic services with volume resuscitation, frequent vasoactive agent adjustments, frequent evaluation and titration of therapies for this patient on the date referenced above. Time devoted to patient care services described in this note equal: 42 minutes total critical care time exclusive of time spent performing procedures or time spent by another provider or resident. * Carolina Merritt PA-C - 08/17/2023 8:08 PM EDT TRANSFER RECEIVING NOTE - [facility] [place] [facility] [place] [id number] Name: Elsa Reyes Current Location: OR [facility] [place]/OR HANDOFF COMMUNICATION: Sending patient service: Ortho Accepting service: Critical Care [place] Sending attending aware of patient and transfer: yes Receiving attending aware of patient and transfer: yes Name of receiving attending provider: Dr. Mo Patient care is being assumed by receiving service: when patient arrives in receiving unit Reason for transfer: post op hypotension Care during the described time interval was provided by me. I have reviewed this patient's available data, including medical history, events of note, physical examination and test results. PATIENT DESCRIPTION: Patient is a 68 year old female with a PMHx significant for hypertension, dyslipidemia, aortic stenosis s/p TAVR, hx of conduction delay/RBBB, hx of PE, type 2 diabetes mellitus,CKD stage III, hx of breast cancer, bilateral degenerative joint disease of the hip presented to [facility] [place] 08/17/23 for bilateral hip replacement surgery. Extubated in PACU. Patient developed post op hypotension, transfused with 2 U PRBCs, transferred to [facility] for further medical management on norepi infusion. Patient arrived alert and oriented, maintaining sats on NC, hypotensive on 8 mcgs norepi. TRANSFER MEDICATION RECONCILIATION COMPLETED? yes REVIEW OF SYSTEMS: + Hip pain. Denies any dizziness, lightheadedness, chest pain, chest pressure, SOB, changes in bowel or bladderhabits. CONSTITUTIONAL DATA: BP: 125 mmHg/65 mmHg (08/17/23 1400) Pulse: 69 (08/17/23 1400) Resp: 15 (08/17/23 1400) Temp: 36.5 C (08/17/23 1245) Temp Summary: Temp Min: 36.5 C (97.7 F) Max: 36.5 C (97.7 F) SpO2: 100 % (08/17/23 1400) O2 flow rate: Supplemental O2 Delivery: Room Air, None (08/17/23 1245) PHYSICAL EXAM: General: lethargic, elderly, PALE HEENT: NCAT, PERRL, conjugate gaze, pale conjunctiva CV: normal sinus, + murmur over the aortic region PV: warm distal extremities, no LE edema Chest: normal effort on NC, lungs clear, diminished at the bases Abdomen: soft, NT, ND Skin: pale, warm, dry, intact, without mottling Neuro:GCS EO 3 BMR 6 BVR 5, alert and oriented, no focal deficits appreciated LABORATORY VALUES: reviewed WBC 9.68 HGB 9.7 s/p 2 U PRBCs Platelets 335 K 4.2 Glucose 149 Ical 1.02 Bicarb 18 pH 7.262 RADIOGRAPHIC STUDIES: reviewed ECHO 07/18/23: The qualitative LV ejection fraction is 60-64% (normal). The left ventricular diastolic function is mildly abnormal (grade I). The patient is status post TAVR with Ray type prosthetic valve. The aortic valve prosthesis systolic gradients are normal for this type prosthesis. The mean systolic gradient through the TAVR is 8.2 mmHg. The peak aortic valve velocity throught the TAVR is 1.9 m/sec. Trivial paravalvular aortic valve prosthesis regurgitation is present. Compared to prior study of 06/06/2023, there is no significant change. Principal Problem: Primary osteoarthritis of both hips (POA: Unknown) POA = Present On Admission SYSTEM BASED PLAN: Neuro -analgesia: dilaudid casting and pasting supervisor, acetaminophen ATC, prn oxy -continue area captain amitriptyline CV/PV -hypovolemic hypotension secondary to ABLA vs epidural anesthesia -s/p transfusion 2 U PRBCS -POCUS with collapsible IVC -continue fluid resuscitation, pressors as needed to maintain MAP > 65 -hold area captain indapamide and nadolol -continue area captain statin -EKG and troponins pending, hx of RBBB and conduction delay Pulm -extubated post op, maintaining sats on minimal oxygen -patient driven respiratory protocol, chest pt, IS GI/Hepatobiliary -NPO except meds -GI ppx: famotidine -bowel reg: senna/colace Renal/Metabolic/Fluids -isoloyte 100 mL/hr, bolus as needed -post op labs pending ID -eleno op ancef/continued doxy Heme -acute blood loss anemia, repeat labs pending Endocrine -NIDDM, hold area captain metformin, SSI as needed MS/Derm -post op Day 0 s/p bilateral hip replacement surgery -appreciate ortho input -hip abductor pillows -weight bearing as tolerated Devices -peripheral ivs -cruz -arterial line GLOBAL ISSUES: Analgesia: protocol with control Sedation: N/A Delirium/Confusion Assessment Method for ICU (CAM-ICU): CAM-ICU negative HOB Elevation: greater than 30 degress Nutrition: NPO except medications DVT Prophylaxis: pneumatic compression devices alone due to chemoprophylaxis contraindication Stress Ulcer Prophylaxis: histamine 2 antagonist Glycemic Control: controlled - protocol Central Line Necessity Reviewed: N/A Cruz: reviewed and needed Disposition: keep in ICU Patient's decisional capacity: has capacity to make decisions Communication with Patient/Family: Patient's spouse, Frank, was updated via phone. Discussed clinical status and plan. Questions were answered to apparent satisfaction. Goals of Care: stabilize hemodynamic status Patient was discussed with Dr. Rivas 45 minutes [facility] Associated attestation - Tylor Rivas MD - 08/17/2023 11:27 PM EDT CCM STAFF I have reviewed the advanced practitioner's documentation on the date of service referenced in note, and I agree with, and take responsibility for the plan of care. I spent a total of 15 minutes of critical care time coordinating, documenting, and providing care for this patient excluding time spent in the performance of separately billed services or time spent by another provider/QHP. Op note reviewed. EBL 1.2L. Received cell saver and 2 units pRBC. Discussed with anesthesia in the PACU. S/p bilateral hip replacement, post op hypotension requiring NE support. Awake, pale appearing, comfortable. Abd soft, nontender. Ext warm. Able to move LE bilaterally. Labs noted. Hypotension likely combination of acute blood loss anemia and spinal anesthesia. Trend Hgb, transfuse as needed. Use NA for MAP > 65. Follow neuro exams. Postop abx per ortho. Hold DVT chemoprophylaxis for now. Full code. Tylor Rivas MD 08/17/2023 11:27 PM documented in this encounter H&P Notes * Chito Cochran MD - 08/17/2023 1:33 PM EDT HISTORY & PHYSICAL INTERVAL NOTE [address] [id number] History and Physical Update: Name: Elsa Reyes Location: OR [facility]/ME Date: 08/17/2023 Time: 1:33 PM DATE OF HISTORY AND PHYSICAL: 08/08/23 BP: / Pulse: Resp: Temp: 36.5 C (08/17/23 1245) Temp Summary: Temp Min: 36.5 C (97.7 F) Max: 36.5 C (97.7 F) SpO2: O2 flow rate: Supplemental O2 Delivery: Room Air, None (08/17/23 1245) Does patient take a beta victor m? No Did patient stop anticoagulants? No, Aspirin Heart Exam: regular rate and rhythm Lung Exam: Clear Other Pertinent Physical Exam: no eee I have reviewed the H&P previously performed and examined the patient today. There are no new findings noted. We discussed her higher risk. Chito Cochran MD * Junior Chavez PA-C - 08/13/2023 10:31 AM EDT Elsa Reyes is a 68 year old female. Chief Complaint Patient presents with NEW PATIENT Bilateral hip pain 08/08/2023 HPI: Elsa Reyes is a 68 year old female with bilateral hip pain. Pain 09/18 hip x years Severe left hip djd Moderate right hip djd Sitting pain 06/05/23 percutaneous AVR Fay pierce and AVR Dr Lyons here Smoking none Etoh none Dental 5 months ago and ok Tender troch sciatica and hip djd I reviewed xrays from today and medicatiuons Can walk with a can e but slow painful gait Mild anemia creatinine 1.2 Voltaren gel to troch bursitis Bilat thrs with left then right if cleared by cardiology Chito Cochran MD PMH: Problem List Patient Active Problem List Diagnosis HTN, goal below 140/90 ADVANCE DIRECTIVE INFORMATION Dyslipidemia, goal LDL below 130 Obesity, morbid (more than 100 lbs over ideal weight or BMI > 40) (HCC) Chronic cough ALLERGIC RHINITIS - MIXED TYPE Deviated nasal septum History of pulmonary embolism Elevated homocysteine Other psoriasis Chronic kidney disease, stage 3a Hypertensive kidney disease with stage 3a chronic kidney disease (HCC) Diabetes mellitus without complication (HCC) Type 2 diabetes mellitus with diabetic polyneuropathy (HCC) History of breast cancer S/P TAVR (transcatheter aortic valve replacement) 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 Calcium Carbonate-Vit D-Min (CALCIUM 600+D PLUS MINERALS) 600-400 MG-UNIT CHEW Take by mouth daily.T tablet daily triamcinolone acetonide (ARISTOCORT) 0.1 % cream APPLY TWICE DAILY DIRECTED 30 g 5 Cyanocobalamin 1000 MCG Oral Tablet (Cyanocobalamin) Take by mouth 1 Tablet in the morning. 100 Tablet 3 Vitamin D (Cholecalciferol) 25 MCG (1000 UT) Oral Capsule Take 1 Capsule by mouth in the morning and 1 Capsule before bedtime. Letrozole 2.5 MG Oral Tablet (Femara) Take 1 Tablet by mouth in the morning. 90 Tablet 3 Acetaminophen ER 650 MG Oral Tablet Extended Release (Tylenol 8 Hour Arthritis Pain) Take 1 Tablet by mouth daily at noon. metFORMIN HCl ER 500 MG Oral Tablet Extended Release 24 Hour (Glucophage XR) TAKE FOUR TABLETS BY MOUTH EVERY DAY 360 Tablet 1 Amitriptyline HCl 75 MG Oral Tablet (Elavil) TAKE ONE TABLET BY MOUTH AT BEDTIME 90 Tablet 1 Aspirin 81 MG Oral Tablet Chewable Take 1 Tablet by mouth in the morning. 34 Tablet 11 Amoxicillin 500 MG Oral Capsule (Amoxil) Take 4 capsules 1 hour prior to any dental work 4 Capsule 4 Indapamide 1.25 MG Oral Tablet Take 1 Tablet by mouth in the morning. 90 Tablet 1 Calmoseptine 0.44-20.6 % External Ointment (Menthol-Zinc Oxide) Apply topically to affected area every 6 hours as needed for Wound Care. Apply to pressure sore on buttock. 113 g 5 Cyclobenzaprine HCl 10 MG Oral Tablet (Flexeril) TAKE ONE TABLET BY MOUTH THREE TIMES A DAY -- IN THE MORNING , NOON, AND AT BEDTIME 270 Tablet 1 Atorvastatin Calcium 80 MG Oral Tablet (Lipitor) Take 1 Tablet by mouth at bedtime. 90 Tablet 3 Nadolol 20 MG Oral Tablet (Corgard) Take 1 Tablet by mouth at bedtime. 90 Tablet 3 traMADol HCl 50 MG Oral Tablet (Ultram) Take 1 Tablet by mouth every 8 hours as needed for Pain, Moderate or Pain, Severe. Two per day maximum 30 Tablet 0 Diclofenac Sodium 1 % External Gel (Voltaren) Apply topically to affected area 4 times a day. Applyto areas outside both hips/troch bursitis 350 g 6 Diclofenac Sodium 1 % External Gel (Voltaren) Apply topically to affected area 3 times a day. Applyto 5 th mtp head (Patient not taking: Reported on 08/08/2023) No current facility-administered medications for this visit. Past Medical History Past Medical History: Diagnosis Date Breast cancer (HCC) 06/30/2020 Right Breast Cancer DM (diabetes mellitus) (HCC) Dyslipidemia, goal to be determined Gastritis and gastroduodenitis antral HTN (hypertension) Migraine without aura, intractable Recurrent epistaxis 07/26/2011 Past Surgical History Past Surgical History: Procedure Laterality Date BREAST BIOPSY-STEREOTACTIC 06/08/2009 Left breast at [facility] Nicole Pierce BX LYMPH NODE DEEP AXIL Right 07/21/2020 BIOPSY LYMPH NODE DEEP AXILLARY OPEN performed by Alysha Owens MD at OR [facility] COLONOSCOPY, DIAGNOSTIC (RECTUM) 02/03/2015 microscopic colitis COLONOSCOPY, DIAGNOSTIC (RECTUM) 02/03/2015 COLONOSCOPY FLEXIBLE PROXIMAL DIAGNOSTIC performed by Mervin Wise MD at ENDOSCOPY [facility] CORONARY ANGIOGRAPHY W/LEFT HEART CATH N/A 05/02/2023 CORONARY ANGIOGRAPHY W/LEFT HEART CATH performed by Katalina Pond MD at [facility] DENTAL SURGERY PROCEDURE NEC 1976 Dental Surgery Procedure-wisdom teeth extraction EXC BREAST LESION RADMARK Right 06/30/2020 EXCISION OF BREAST LESION RADIOLOGICAL MARKER performed by Alysha Owens MD at OR [facility] IDENTIFY SENTINEL NODE, RADIOACTIVE TRACER Right 07/21/2020 INJECTION PROCEDURE FOR IDENTIFICATION SENTINEL NODE performed by Alysha Owens MD at OR [facility] INFORMATION Bilateral 2010 cataract MAMMOGRAM BREAST NEEDLE BIOPSY CORE LEFT Left 06/08/2009 benign MAMMOGRAM SCREENING-BILATERAL 10/23/2007 birad 1 MASTECTOMY, PARTIAL Right 07/21/2020 MASTECTOMY PARTIAL performed by Alysha Owens MD at [facility] PAP SCREEN 06/08/2009 satisfactory for eval RADIATION THERAPY Completed September 2020 REPLACE AORTIC VALVE, PERCUTANEOUS FEMORAL N/A 06/05/2023 REPLACE AORTIC VALVE, PERCUTANEOUS FEMORAL performed by Mat Lucia MD at [facility] REPLACE AORTIC VALVE, PERCUTANEOUS FEMORAL N/A 06/05/2023 REPLACE AORTIC VALVE, PERCUTANEOUS FEMORAL performed by Jose Roland MD at [facility] Allergies Review of patient's allergies indicates: Allergen Reactions Dichloralphenazone Other Reaction(s): RASH Isometheptene Other Reaction(s): RASH Midrin Red and ictchy in the face Family History Family History Problem Relation Name Age of Onset Cancer Father lung-@69 Heart Disorder Father VA Hypertension Father Heart Disorder Grandfather (Paternal) VA @65 Cancer Grandfather (Maternal) @71 Stroke Grandmother (Paternal) @75 Eye Problems Mother mac degeneration Breast Cancer Mother Mastectomy Heart Disorder Mother Gastro-intestinal disorder Uncle (Unspecified) maternal - celiac disease Stroke Sister @62,scoliosis, pneumonia No Past Hx Sister Family Status Family Status Relation Status Fa PGFA (Not Specified) MGFA (Not Specified) PGMA (Not Specified) Mo UNCLE (Not Specified) Sis Sis Alive Social History []Expand by Default Socioeconomic History Marital status: Spouse name: Not on file Number of children: 2 Years of education: 12 Highest education level: Not on file Occupational History Not on file Tobacco Use Smoking status: Never Smokeless tobacco: Never Tobacco comments: no passive smoke Vaping Use Vaping status: Never Used Substance and Sexual Activity Alcohol use: No Drug use: No Sexual activity: Yes Partners: Male Other Topics Concern Not on file Social History Narrative [employer] INFORMATION ENVIRONMENTAL HISTORY: Type of Home: Two Story Type of Heating System: Electric Air Conditioning: Yes daughter's bedroom Basement: Finished, Carpeted rooms, Dampness, Dehumidifier and No evidence mold, mildew Home have cockroaches: No Irritants in the home: None Patient's bedroom location: Floor: second Type of dwayne: Carpeting Beds: Number: 1 Type of beds: Mattress and Box spring Pillows: Number: 4 Type of pillows: Synthetic (hypoallergenic, polyester) Bedroom contains: Bookshelves/Books and Collectibles (knicknacks) Pets:1 Guinea pig(s) Lives on a farm: No Has been sleeping on 1st floor couch upright because lying down causes her to cough. Does not work outside of home. Entered by: John Daly MD 10/18/2009 Social Determinants of Health Financial Resource Strain: Not on file Food Insecurity: No Food Insecurity (06/26/2023) Hunger Vital Sign Worried About Running Out of Food in the Last Year: Never true Ran Out of Food in the Last Year: Never true Transportation Needs: Not on file Physical Activity: Not on file Stress: Not on file Social Connections: Not on file Intimate Partner Violence: Not on file Housing Stability: Not on file Objective BP 144/76 (BP Site: Left Arm, BP Position: Sitting) | Pulse 60 | Temp 36.4 C (97.5 F) (Tympanic) | Ht 1.499 m (4' 11") | Wt 78 kg (172 lb) | LMP 10/20/2003 | SpO2 99% Comment: room air | BMI 34.74 kg/m | BSA 1.8 m Physical Exam Cardiovascular: Heart sounds: Normal heart sounds. No murmur heard. No friction rub. No gallop. Pulmonary: Breath sounds: Normal breath sounds. No stridor. No wheezing, rhonchi or rales. Musculoskeletal: Comments: Palpable dp bilaterally Ehl/df/pf 5/5 bilateral Right and left thigh no cuts, erythema, or edema ASSESSMENT/PLAN: Elsa Reyes is a 68 year old female with bilateral severe hip DJD. Dr. Cochran read and reviewed he has severe joint space narrowing on both hips. Discussed she is candidate for bilateral total hip replacements based on xray, symptoms and PE. She would like to proceed with surgery as soon as possible. After reviewing the patients past medical history, imaging, and performing a clinical examination, we have decided that a bilater total hip replacement is appropriate for this patient. We have explained the risks of the procedure including the potential for nerve damage, blood clots, and infection to the patient. We have discussed in detail the perioperative process including the preoperative evaluation, an overview of the surgical procedure, and the postoperative recovery process. We will go over total joint class information here at [facility] prior to the procedure and have advised the patient torefrain from taking any NSAID medications beginning 10 days prior to the procedure. Verbal and written consents were obtained at today's visit and did history and physical Risk Stratification score = Patients condition score (2) + Surgical Risk score (3 for joints). -surgery scheduled for August 17, 2023 -Chlorhexidine information and education presented to the patient? Yes -TXA indicated? Yes -pre-operative labs/tests ordered -blood conservation referral confirmed -consent obtained/confirmed -Patient outcome questionnaires were provided to the patient? No -Patient Compact was signed by the patient? Yes Consent obtained/confirmed Use of chronic narcotics for greater than or equal to 90 days: Yes, oxycodone Patient has pain in the non-operative lower extremity. The patient has back pain quantified as 7/10. Worse with standing and lying down -Patient uses asa and has been instructed to discontinue 0 days before surgery. - no UA symptoms - midrin Allergies - order walker - last steroid injection over a year, last dental visit okay - live on one floor, walker, care - cardiology: "I received the results of your recent echocardiogram: Echocardiogram showed a preserved LVEF (heart function) of 60-64%. TAVR gradients stable. No changes needed at this time. Okay to proceed with elective hip replacement surgery from a cardiac standpoint. " - continue aspirin per cardiology - Stop alleve and tramadol starting today. Okay to take tyelnol. Stop supplements and vitamins starting today. Bilateral hip pain (Primary) - XR HIP BILAT MIN 5 VIEWS INCLUDING AP OF PELVIS Pre-op testing - ALBUMIN; Future; Expected date: 08/08/2023 - BASIC METABOLIC PANEL; Future; Expected date: 08/08/2023 - CBC WITH WBC DIFFERENTIAL AND ANEMIA REFLEX WORKUP; Future; Expected date: 08/08/2023 - HEMOGLOBIN A1C; Future; Expected date: 08/08/2023 - [facility] PCR - TYPE AND SCREEN; Future; Expected date: 08/08/2023 Primary osteoarthritis of both hips - STANDARD CASE REQUEST Other orders - Diclofenac Sodium 1 % External Gel (Voltaren); Apply topically to affected area 4 times a day. Apply to areas outside both hips/troch bursitis Junior Chavez PA-C documented in this encounter Consult Notes * Ronen Preston RN - 08/20/2023 8:11 AM EDTAssociated Order(s): BLOOD MANAGEMENT CONSULT IP CONSULT - Patient Blood Management [address] [address] Name: Elsa Reyes Location: [facility] [id number] Date: 08/20/2023 Time: 8:11 AM REQUESTING SERVICE: [facility] ortho REASON FOR CONSULT: new evaluation inpatient, s/p bilat THR Recent hemorrhage: no History of prior anemia: no Recent surgery: yes Anemia Evaluation: Latest Reference Range & Units 08/08/23 16:46 08/20/23 04:19 HGB 12.0 - 15.3 g/dL 12.7 7.4 (L) HCT 36.0 - 45.2 % 39.8 21.9 (L) (L): Data is abnormally low Current Patient Medications: Medications that may impair hemostasis: bASA Medications that may impair iron absorption: none Patient Refused Blood Transfusion? (e.g. [facility]): no Possible Contributing Factors: acute blood loss Treatment Recommendations: If no active hemorrhage, consider PRBC transfusion only for severe anemia and use a 1 unit PRBC dose followed by a repeat clinical assessment. For reversal of anticoagulation therapy, use Reversal of Anticoagulation order set. Limit and coordinate blood draws to prevent iatrogenic anemia. Venofer 300mg IVPB daily x 2 days B12 1mg daily Continue vitamin daily x 2 months on D/C for ABLA Follow-up Recommendations: Follow up with PCP for further assessment/management of anemia post discharge. Spoke with Dr. Bates in regards to current recommendations, agreeable to same. Thank you for allowing Blood Management to participate in the care of this patient. * Stephen Thomson, OTR/L - 08/19/2023 10:49 AM EDT GENERAL OOB EVALUATION - Occupational Therapy [address] [id number] Name: Elsa Reyes Location: [facility] [id number] Date: 08/19/2023 Time: 10:54 AM Elsa Reyes is a 68 year old female. Patient Status: Inpatient Insurance: Payor: [facility] Plan: [facility] [employer] COMPLETE RX [id number] Product Type: *No Product type* Patient Seen: at bedside, nursing cleared patient for therapy Patient Identified By: Name, ID Band and Date Diagnosis: b/l MERVAT (08/19/23909) Status of treatment: OOB evaluation completed (08/19/23909) Orders: OT evaluation and treatment;OT OOB (08/19/23909) Weight Bearing Status: Weight bearing as tolerated (08/19/23909) Precautions: Alarms;Falls;Cruz;Safety;Total hip (anterior/posterior hip; ABD pillow) (08/19/23909) Total Treatment Time: 24 (08/19/23909) Past Medical History: Past Medical History: Diagnosis Date Breast cancer (HCC) 06/30/2020 Right Breast Cancer DM (diabetes mellitus) (HCC) Dyslipidemia, goal to be determined Gastritis and gastroduodenitis antral HTN (hypertension) Migraine without aura, intractable Recurrent epistaxis 07/26/2011 Past Surgical History: Past Surgical History: Procedure Laterality Date BREAST BIOPSY-STEREOTACTIC 06/08/2009 Left breast at [facility] [place] Nicole Pierce BX LYMPH NODE DEEP AXIL Right 07/21/2020 BIOPSY LYMPH NODE DEEP AXILLARY OPEN performed by Alysha Owens MD at OR [facility] COLONOSCOPY, DIAGNOSTIC (RECTUM) 02/03/2015 microscopic colitis COLONOSCOPY, DIAGNOSTIC (RECTUM) 02/03/2015 COLONOSCOPY FLEXIBLE PROXIMAL DIAGNOSTIC performed by Mervin Wise MD at ENDOSCOPY [facility] CORONARY ANGIOGRAPHY W/LEFT HEART CATH N/A 05/02/2023 CORONARY ANGIOGRAPHY W/LEFT HEART CATH performed by Katalina Pond MD at [facility] DENTAL SURGERY PROCEDURE NEC 1976 Dental Surgery Procedure-wisdom teeth extraction EXC BREAST LESION RADMARK Right 06/30/2020 EXCISION OF BREAST LESION RADIOLOGICAL MARKER performed by Alysha Owens MD at OR [facility] IDENTIFY SENTINEL NODE, RADIOACTIVE TRACER Right 07/21/2020 INJECTION PROCEDURE FOR IDENTIFICATION SENTINEL NODE performed by Alysha Owens MD at OR [facility] INFORMATION Bilateral 2010 cataract MAMMOGRAM BREAST NEEDLE BIOPSY CORE LEFT Left 06/08/2009 benign MAMMOGRAM SCREENING-BILATERAL 10/23/2007 birad 1 MASTECTOMY, PARTIAL Right 07/21/2020 MASTECTOMY PARTIAL performed by Alysha Owens MD at OR [facility] PAP SCREEN 06/08/2009 satisfactory for eval RADIATION THERAPY Completed September 2020 REPLACE AORTIC VALVE, PERCUTANEOUS FEMORAL N/A 06/05/2023 REPLACE AORTIC VALVE, PERCUTANEOUS FEMORAL performed by Mat Lucia MD at [facility] REPLACE AORTIC VALVE, PERCUTANEOUS FEMORAL N/A 06/05/2023 REPLACE AORTIC VALVE, PERCUTANEOUS FEMORAL performed by Jose Roland MD at [facility] Social History/Disposition Lives with: Spouse;Family (daughter) (08/19/23845) Assistance available: Yes (08/19/23845) Dwelling type: Multi-story home (08/19/23845) Entry steps: Ramp (08/19/23845) Inside steps: 10 - 15 (08/19/23845) Bedroom location: 2nd floor (sleeps upright on couch; 1st floor) (08/19/23845) Bath location: 1st floor powder room;2nd floor full bath (08/19/23845) Prior Level of Function Reported by: Patient (08/18/231001) Ambulation: Ambulatory with device (08/18/23 1002) Ambulatory Device: Cane (in the home. wheelchair for distances) (06/08/24 1002) Grooming: Independent (08/18/231001) Bathing: Independent (08/18/231001) Dressing: Independent (08/18/231001) Feeding: Independent (08/18/231001) Toileting: Independent (08/18/231001) Meal Prep: Assistance (08/18/231001) Homemaking: Assistance (08/18/231001) Shopping: Assistance (08/18/231001) Medication Management: Independent (08/18/231001) Money Management: Independent (08/18/231001) Durable Medical Equipment at home: Wheelchair;Straight cane;Rolling walker;Rollator;Bedside commode(08/18/231001) Subjective: Pt supine in bed, agreeable to OT session. Pain: Patient has complaints of pain. Pain located at L hip > R, rated 8/10 once standing. Nursing aware Observations Consciousness: Alert (08/19/23909) Orientation: Oriented times 4 (08/19/23909) Psychosocial: Patient can communicate basic needs;Patient can converse in a social setting (08/19/23909) Sitting posture: Forward head;Rounded shoulders;Posterior lean (08/19/23909) Standing posture: Forward head;Rounded shoulders;Posterior lean (08/19/23909) Safety awareness: The Patient verbalizes insight of current deficits.;Needs cueing supervision. (08/19/23909) Other Findings Endurance: Sitting tolerance;Fair;Standing tolerance;Functional activity;Poor (08/19/23909) Light touch sensation: Intact (08/18/231001) Proprioception: Intact (08/18/231001) Coordination: Intact (08/18/231001) Tone: Normal tone (08/18/231001) Edema: Edema noted (08/18/231001) Extremity: RUE (08/18/231001) Current Functional Status: Bilateral Upper Extremity Range of Motion: WFL (08/18/231001) Strength Assessment: Deficits noted (08/18/231001) LUE: 4/5 (08/18/231001) RUE: Shoulder;3-/5;Elbow;Grasp;4/5 (08/18/231001) Self Care Grooming: Supervision (Please comment) (wash face) (08/19/23909) Dressing Lower Body: Dependent (to don socks) (08/19/23909) Functional Ambulation Assistive Device: Rolling walker (08/19/23909) Distance in feet:: 3 (lateral steps/heel toe towards HOB) (08/19/23909) Level of Assistance: Moderate Assistance (x2) (08/19/23909) Bed Mobility Supine-Sit: Maximal Assistance (x2) (08/19/23909) Sit-Supine: Maximal Assistance (x2) (08/19/23909) OT Transfers Sit-Stand: Moderate Assistance (x2) (08/19/23909) Stand-Sit: Moderate Assistance (x2) (08/19/23909) Balance Sit (Static): Fair (- to poor) (08/19/23909) Sit (Dynamic): Fair (- to poor) (08/19/23909) Stand (Static): Poor (-) (08/19/23909) Stand (Dynamic): Poor (-) (08/19/23909) Alarm Status Patient positioned in: Bed (08/19/23909) With: Bed alarm intact and functioning and call soto in reach (08/19/23909) Patient and Family Goals: to get well Patient Education Education Topic: Role of OT;Plan of care goals (08/19/23909) Review of Precautions: Safety;Total Hip;Fall (08/19/23909) Method of Education: Verbalized to patient (08/19/23909) Education Provided to: Patient (08/19/23909) Response to Education: Receptive and agreeable to education (08/19/23909) Barriers to learning: Medical status (08/19/23909) Preferred learning method: Combination (08/19/23909) Treatment Provided: Self [facility] Management Trainin minutes Therapeutic Activity: 16 minutes Deficits Requiring O.T. Treatment: Deficits requiring O.T. treatment needs: ADL/self-care;Balance;Endurance;Functional mobility;Safety;Upper extremity strength;Weakness (08/19/23909) Assessment: Patient was admitted to [facility] on 08/17/23 for b/l MERVAT. Patient seen this date for OT OOB evaluation. During session patient required maxA x2 for bed mobility. Tolerated sitting edge of bed for ~10 minutes with focus on sitting tolerance, balance and breathing. Per RN BP has been low. Taken EOB 99/63 with slight improvement, though patient with minimal symptoms. Able to complete groomingtasks with supervision but was Dept to don socks. Would benefit from education on hip kit when appropriate. Sit/stand transfer completed with modA x2. Cues provided for breathing once standing. Increase pain noted at L hip once standing. Pt able to take 3 small side steps with walker towards head of bed with modA x2. She was then returned supine assist x2 due to increased pain. Following session pt in bed with all needs met. BP supine 111/55. RN present and aware. Currently, patients presents with deficits in ADLs and functional mobility, as well as decreased strength, decreased endurance, decreased balance and safety. Patient would benefit from continued OT services to improve independencein ADLs and functional mobility. When medically appropriate, Please consider post-acute care services which may include home health, fci, outpatient therapy or inpatient rehabilitation. The level of care will be determined in collaboration with patient, family/caregiver and care team arcelia dubon. Goals: Demonstrates Self-Care at: UB Bathing: supervision LB Bathing: Martha UB Dressing: supervision to don gown/robe/shirt LB Dressing: Martha don socks/shoes/pants Grooming: independent Feeding: independent Toileting: ModA Demonstrates Bed Mobility at: Supine to sit: Martha Sit to supine: Martha Demonstrates balance at: Sitting balance: Poor+ Standing balance: Poor+ Transfers: Sit to Stand: Martha Stand to Sit: Martha Toilet: Martha Functional Ambulation at MinAwith AD PRN Demonstrates standing endurance at 3 minutes to increase participation in functional mobility and ADL tasks Increase Strength of B UEs 1/2 muscle grade Patient will recall and demonstrates follow throughout with hip precautions during functional transfers and ADL tasks 100% of the time with no cueing. Goal Time Frame: 10 visits Treatment Plan: Safety, Bed mobility training, Functional Ambulation, Transfer Training, Upper extremity strengthening, Balance activities, ADL training and Endurance Anticipated Frequency (on eval): Daily (08/19/23909) AM-PAC Help From Another Person Eating Meals: A little (08/19/23909) Help From Another Person Taking Care of Personal Grooming: A little (08/19/23909) Help From Another Person To Put On/Take Off Upper Body Clothing: A little (08/19/23909) Help From Another Person To Put On/Take Off Lower Body Clothing: Total (08/19/23909) Help From Another Person Toileting: Total (08/19/23909) Help From Another Person Bathing: A lot (08/19/23909) OT AM-PAC Score: 13 (08/19/23909) OT AM-PAC t-Scale Score: 32.03 (08/19/23909) HLM (Highest Level of Mobility) Goal: Level 2 bed activities/dependent transfer (08/19/23899) A portion of this AM-PAC assessment not scored based on functional assessment; rather clinical decision making utilized based on current findings and/or prior level of function. Please refer to future AM-PAC calculations of functional ability as they become available. * Korina Conrad, PT - 08/19/2023 8:46 AM EDT GENERAL EVALUATION - Physical Therapy [address] [address] Name: Elsa Reyes Location: [facility] H777/[id number] Date: 08/19/2023 Time: 10:43 AM Elsa Reyes is a/an 68 year old female. Patient Status: Inpatient Insurance: Payor: [facility] GOLD Plan: [facility] CLASSIC COMPLETE RX MH-GD Product Type: *No Product type* Patient Seen: at bedside, nursing cleared patient for therapy Patient Identified By: Name, ID Band and Date Diagnosis: OA B hips (08/19/23845) Status of treatment: OOB evaluation completed (08/19/23845) Orders: PT evaluation and treatment (08/19/23845) Weight Bearing Status: Weight bearing as tolerated (08/19/23845) Precautions: Oxygen;Cruz;Total hip (08/19/23845) Total Treatment Time--free text: 23 (08/19/23845) Past Medical History: Past Medical History: Diagnosis Date Breast cancer (HCC) 06/30/2020 Right Breast Cancer DM (diabetes mellitus) (HCC) Dyslipidemia, goal to be determined Gastritis and gastroduodenitis antral HTN (hypertension) Migraine without aura, intractable Recurrent epistaxis 07/26/2011 Past Surgical History: Past Surgical History: Procedure Laterality Date BREAST BIOPSY-STEREOTACTIC 06/08/2009 Left breast [place] [facility] [place] Nicole Pierce BX LYMPH NODE DEEP AXIL Right 07/21/2020 BIOPSY LYMPH NODE DEEP AXILLARY OPEN performed by Alysha Owens MD at OR [facility] COLONOSCOPY, DIAGNOSTIC (RECTUM) 02/03/2015 microscopic colitis COLONOSCOPY, DIAGNOSTIC (RECTUM) 02/03/2015 COLONOSCOPY FLEXIBLE PROXIMAL DIAGNOSTIC performed by Mervin Wise MD at [facility]OSCOPY [facility] CORONARY ANGIOGRAPHY W/LEFT HEART CATH N/A 05/02/2023 CORONARY ANGIOGRAPHY W/LEFT HEART CATH performed by Katalina Pond MD at [facility] DENTAL SURGERY PROCEDURE NEC 1976 Dental Surgery Procedure-wisdom teeth extraction EXC BREAST LESION RADMARK Right 06/30/2020 EXCISION OF BREAST LESION RADIOLOGICAL MARKER performed by Alysha Owens MD at OR [facility] IDENTIFY SENTINEL NODE, RADIOACTIVE TRACER Right 07/21/2020 INJECTION PROCEDURE FOR IDENTIFICATION SENTINEL NODE performed by Alysha Owens MD at [facility] INFORMATION Bilateral 2010 cataract MAMMOGRAM BREAST NEEDLE BIOPSY CORE LEFT Left 06/08/2009 benign MAMMOGRAM SCREENING-BILATERAL 10/23/2007 birad 1 MASTECTOMY, PARTIAL Right 07/21/2020 MASTECTOMY PARTIAL performed by Alysha Owens MD at [facility] PAP SCREEN 06/08/2009 satisfactory for eval RADIATION THERAPY Completed September 2020 REPLACE AORTIC VALVE, PERCUTANEOUS FEMORAL N/A 06/05/2023 REPLACE AORTIC VALVE, PERCUTANEOUS FEMORAL performed by Mat Lucia MD at [facility] REPLACE AORTIC VALVE, PERCUTANEOUS FEMORAL N/A 06/05/2023 REPLACE AORTIC VALVE, PERCUTANEOUS FEMORAL performed by Jose Rolnad MD at [facility] Subjective: Pt in bed and willing to attempt standing Social History/Disposition Lives with: Spouse;Family (daughter) (08/19/23845) Assistance available: Yes (08/19/23845) Dwelling type: Multi-story home (08/19/23845) Entry steps: Ramp (08/19/23845) Inside steps: 10 - 15 (08/19/23845) Bedroom location: 2nd floor (sleeps upright on couch; 1st floor) (08/19/23845) Bath location: 1st floor powder room;2nd floor full bath (08/19/23845) Prior Level of Function Reported by: Patient (08/18/23950) Ambulation: Ambulatory with device;Non-ambulatory with manual wheelchair (08/18/23950) Ambulatory Device: Cane (08/18/23950) Devices at home: Rollator;Straight cane;Wheelchair (08/18/23950) Observations Consciousness: Alert (08/19/23845) Orientation: Oriented times 4 (08/19/23845) Psychosocial: Patient can communicate basic needs (08/19/23845) Other Findings: Yes (08/18/23950) Findings: Light touch sensation;Coordination;Edema;Tone (08/18/23950) Light Touch Sensation Results: Intact;LLE;RLE (08/18/23950) Coordination Results: Intact;RLE;LLE (08/18/23950) Edema Results: Intact;LLE;RLE (08/18/23950) Tone Results: Intact;LLE;RLE (08/18/23950) Pain: Patient has complaints of pain. Pain located B hips L>R. 8/10 with mobility Staff Notified Range of Motion Range of Motion: WFL (08/19/23845) Strength Assessment Strength Assessment: Deficits noted (08/19/23845) WNL, except: LLE;RLE (08/19/23845) LLE: Hip;3-/5;Knee;3+/5;Ankle;4/5 (08/19/23845) RLE: Hip;3-/5;Knee;3+/5;Ankle;4/5 (08/19/23845) P.T. Bed Mobility Supine-Sit: Maximal Assistance (Ax2) (08/19/23845) Sit-Supine: Maximal Assistance (Ax2) (08/19/23845) Transfers Sit-Stand: Moderate Assistance (Ax2) (08/19/23845) Stand-Sit: Moderate Assistance (Ax2) (08/19/23845) Ambulation: Distance ambulated (feet): 3 steps Assistive Device: Rolling walker Assist: Moderate Assistance Ax2 Balance Sit (Static): Fair (at best) (08/19/23845) Sit (Dynamic): Fair (at best) (08/19/23845) Stand (Static): Poor (08/19/23845) Stand (Dynamic): Poor (08/19/23845) Patient and or Family Goal(s): to get well Patient Education Review of Precautions: Total Hip;Safety (08/19/23845) Review of Exercises: Pt Demonstrated Exercise;Verbal Exercises Provided (08/18/23 1438) Safety Awareness: Patient verbalizes insight of current deficits (08/19/23845) Preferred learning method: Combination (08/19/23845) Barriers to learning: Medical Status (08/19/23845) Method of Education: Verbalized to patient (08/19/23845) Topic of Education: Safety with mobility, Goals/plan of care, and Use of assistive device Method of Education: Verbal discussion and explanation provided to patient: verbalized understanding and or agreement of this information Treatment Provided: Therapeutic Activities 23 minutes: bed mobility training transfer training Alarm Status Patient positioned in: Bed (08/19/23845) With: Bed alarm intact and functioning and call soto in reach (08/19/23845) Treatment Status: Treatment at bedside (08/19/23845) Goals: Demonstrate Bed Mobility with: Supine to Sit: contact guard Sit to supine: contact guard Demonstrate Transfers with: Sit to stand: contact guard Stand to sit: contact guard Bed to chair: contact guard Demonstrate Ambulation: assistive device: rolling walker distance in feet: 25 ft level of assistance on level surface: contact guard Increase Strength of: BLE's by 1/2 muscle grade Increase Balance: F dynamic standing Time Frame: 8 visits Assessment: Pt seen for out of bed assessment today. Pt able to complete supine to sit with Max Ax2. Once seated edge of bed pt tolerated for 10 minutes while monitoring BP status with Mod A to contact guard at best. Pt with BP 99/63 after sitting edge of bed for 10 minutes. RN present in room and pt no longer symptomatic. Pt was then able to stand and ambulate with wheeled walker 3 steps to the head of the bed with Mod Ax2. She was then able to complete sit to supine with Max Ax2. BP post treatment Deficits requiring P.T. treatment needs: Safety;Mobility;Balance;Weakness;Lower extremity strength (08/19/23845) Equipment Needs: Equipment needs: Rolling walker (08/19/23845) Treatment Plan: Bed mobility training, Transfer training, Gait training, Strengthening exercises: BLE's, and Balance activities Anticipated Frequency (on eval): BID (08/19/23845) AM PAC Score with Stairs: 11 A portion of this AM-PAC assessment not scored based on functional assessment due to no assessment of elevations; rather clinical decision making utilized based on current findings and/or prior levelof function. Please refer to future AM-PAC calculations of functional ability as they become available. * Gudelia Atkinson OTR/Joce - 08/18/2023 10:02 AM EDTAssociated Order(s): ADULT OCCUPATIONAL THERAPY CONSULT IP GENERAL BEDREST EVALUATION - Occupational Therapy [address] [address] Name: Elsa Reyes Location: [facility] H777/[id number] Date: 08/18/2023 Time: 1001 Elsa Reyes is a 68 year old female. Patient Status: Inpatient Insurance: Payor: [facility] Plan: [facility] CLASSIC COMPLETE RX MH-GD Product Type: *No Product type* Patient Seen: at bedside, nursing cleared patient for therapy Patient Identified By: Name, ID Band and Date Diagnosis: DJD bilateral hips. s/p MERVAT bilaterally (08/18/231001) Status of treatment: Bedrest evaluation completed (08/18/231001) Orders: OT bedrest evaluation (08/18/231001) Weight Bearing Status: Weight bearing as tolerated (08/18/231001) Precautions: Alarms;A-line;Falls;Safety;Total hip;Oxygen (anterior and posterior hip precautions) (08/18/231001) Total Treatment Time: 10 (08/18/231001) Past Medical History: Past Medical History: Diagnosis Date Breast cancer (HCC) 06/30/2020 Right Breast Cancer DM (diabetes mellitus) (HCC) Dyslipidemia, goal to be determined Gastritis and gastroduodenitis antral HTN (hypertension) Migraine without aura, intractable Recurrent epistaxis 07/26/2011 Past Surgical History: Past Surgical History: Procedure Laterality Date BREAST BIOPSY-STEREOTACTIC 06/08/2009 Left breast at [facility] [place] Nicole Pierce BX LYMPH NODE DEEP AXIL Right 07/21/2020 BIOPSY LYMPH NODE DEEP AXILLARY OPEN performed by Alysha Owens MD at OR [facility] COLONOSCOPY, DIAGNOSTIC (RECTUM) 02/03/2015 microscopic colitis COLONOSCOPY, DIAGNOSTIC (RECTUM) 02/03/2015 COLONOSCOPY FLEXIBLE PROXIMAL DIAGNOSTIC performed by Mervin Wise MD at [facility]COPY [facility] CORONARY ANGIOGRAPHY W/LEFT HEART CATH N/A 05/02/2023 CORONARY ANGIOGRAPHY W/LEFT HEART CATH performed by Katalina Pond MD at [facility] DENTAL SURGERY PROCEDURE NEC 1976 Dental Surgery Procedure-wisdom teeth extraction EXC BREAST LESION RADMARK Right 06/30/2020 EXCISION OF BREAST LESION RADIOLOGICAL MARKER performed by Alysha Owens MD at OR [facility] IDENTIFY SENTINEL NODE, RADIOACTIVE TRACER Right 07/21/2020 INJECTION PROCEDURE FOR IDENTIFICATION SENTINEL NODE performed by Alysha Owens MD at OR [facility] INFORMATION Bilateral 2010 cataract MAMMOGRAM BREAST NEEDLE BIOPSY CORE LEFT Left 06/08/2009 benign MAMMOGRAM SCREENING-BILATERAL 10/23/2007 birad 1 MASTECTOMY, PARTIAL Right 07/21/2020 MASTECTOMY PARTIAL performed by Alysha Owens MD at [facility] PAP SCREEN 06/08/2009 satisfactory for eval RADIATION THERAPY Completed September 2020 REPLACE AORTIC VALVE, PERCUTANEOUS FEMORAL N/A 06/05/2023 REPLACE AORTIC VALVE, PERCUTANEOUS FEMORAL performed by Mat Lucia MD at [facility] REPLACE AORTIC VALVE, PERCUTANEOUS FEMORAL N/A 06/05/2023 REPLACE AORTIC VALVE, PERCUTANEOUS FEMORAL performed by Jose Roland MD at [facility] Social History/Disposition Lives with: Spouse;Family (daughter) (08/18/23 1002) Assistance available: Yes (08/18/23 1002) Dwelling type: Multi-story home (08/18/23 1002) Entry steps: Ramp (08/18/23 1002) Inside steps: 10 - 15 (08/18/23 1002) Bedroom location: (sleeps on couch on the first floor) (08/18/231001) Bath location: 1st floor powder room;2nd floor full bath (sponge bathes on first floor) (08/18/231001) Prior Level of Function Reported by: Patient (08/18/231001) Ambulation: Ambulatory with device (08/18/231001) Ambulatory Device: Cane (in the home. wheelchair for distances) (08/18/231001) Grooming: Independent (08/18/231001) Bathing: Independent (08/18/231001) Dressing: Independent (08/18/231001) Feeding: Independent (08/18/231001) Toileting: Independent (08/18/231001) Meal Prep: Assistance (08/18/231001) Homemaking: Assistance (08/18/231001) Shopping: Assistance (08/18/231001) Medication Management: Independent (08/18/231001) Money Management: Independent (08/18/231001) Durable Medical Equipment at home: Wheelchair;Straight cane;Rolling walker;Rollator;Bedside commode(08/18/231001) Pain: No complaints of pain Observations Consciousness: Alert (08/18/231001) Orientation: Oriented times 4 (08/18/231001) Psychosocial: Patient can communicate basic needs;Patient can converse in a social setting (08/18/231001) Safety awareness: The Patient can communicate basic needs. (08/18/231001) Other Findings Light touch sensation: Intact (08/18/231001) Proprioception: Intact (08/18/231001) Coordination: Intact (08/18/231001) Tone: Normal tone (08/18/231001) Edema: Edema noted (08/18/231001) Extremity: RUE (08/18/231001) Current Functional Status: Bilateral Upper Extremity Range of Motion: WFL (08/18/231001) Strength Assessment: Deficits noted (08/18/231001) LUE: 4/5 (08/18/231001) RUE: Shoulder;3-/5;Elbow;Grasp;4/5 (08/18/231001) Alarm Status Patient positioned in: Bed (08/18/231001) With: Bed alarm intact and functioning and call soto in reach (08/18/231001) Patient and Family Goals: to get well Patient Education Education Topic: Role of OT;Plan of care goals (08/18/231001) Review of Precautions: Fall;Safety;Total Hip (08/18/231001) Method of Education: Verbalized to patient (08/18/231001) Education Provided to: Patient (08/18/231001) Response to Education: Receptive and agreeable to education (08/18/231001) Barriers to learning: Medical status (08/18/231001) Preferred learning method: Combination (08/18/231001) Treatment Provided: Evaluation Moderate Complexity 10 minutes - 67218: Patient was cooperative, pleasant, motivated, and alert during treatment session. Moderate complexity evaluation performed and 3-5 activity limitations were identified, including decreased strength. Minimal or moderate modification of the functional task was necessary to complete the evaluation. Deficits Requiring O.T. Treatment: Goals: Increase Strength of: bilateral UE 1 grade. Goal Time Frame: 10 visits Assessment: Patient is a 68 year old female admitted with DJD of bilateral hips and presents with deficits in bilateral UE strength at this time due to overall medical condition. Currently on hold for out of bed evaluation upon nursing request due to being on levophed and pressures. Educated on hipprecautions (anterior and posterior) and hip kit placed in the room but not reviewed with the patient at this time due to being on bedrest. Would benefit from continued OT treatment to maximize levelof functional independence. Will complete OOB and functional evaluation as able and appropriate andmake recommendations at that time Treatment Plan: Accuracy with Precautions, Safety, and Upper extremity strengthening Anticipated Frequency (on eval): Daily (08/18/231001) AM-PAC assessment not scored at this time due to bedrest evaluation completed. Please refer to future AM-PAC calculations of functional mobility as they become available. MS JAMAL Melton/Joce Occupational Therapy [facility] 08/18/2023 2:42 PM * Bev Mohr, DPT - 08/18/2023 9:51 AM EDTAssociated Order(s): ADULT PHYSICAL THERAPY CONSULT IP GENERAL EVALUATION Bedrest- Physical Therapy [facility] [address] Name: Elsa Reyes Location: [facility] H777/A Date: 08/18/2023 Time: 9:51 AM Elsa Reyes is a/an 68 year old female. Patient Status: Inpatient Insurance: Payor: [facility] GOLD Plan: [facility] CLASSIC COMPLETE RX MH-GD Product Type: *No Product type* Patient Seen: at bedside, nursing cleared patient for therapy Patient Identified By: Name, ID Band and Date Diagnosis: primary OA B/L hips; s/p B/L MERVAT (08/18/23950) Status of treatment: Bedrest evaluation completed (08/18/23950) Orders: PT evaluation and treatment (08/18/23950) Weight Bearing Status: Weight bearing as tolerated (08/18/23950) Precautions: Alarms;Falls;Cruz;Safety;A-line;Oxygen;Total hip (hip ABD wedge) (08/18/23950) Total Treatment Time--free text: 9 (08/18/23950) Past Medical History: Past Medical History: Diagnosis Date Breast cancer (HCC) 06/30/2020 Right Breast Cancer DM (diabetes mellitus) (HCC) Dyslipidemia, goal to be determined Gastritis and gastroduodenitis antral HTN (hypertension) Migraine without aura, intractable Recurrent epistaxis 07/26/2011 Past Surgical History: Past Surgical History: Procedure Laterality Date BREAST BIOPSY-STEREOTACTIC 06/08/2009 Left breast at [facility] [place] Nicole Pierce BX LYMPH NODE DEEP AXIL Right 07/21/2020 BIOPSY LYMPH NODE DEEP AXILLARY OPEN performed by Alysha Owens MD at OR [facility] COLONOSCOPY, DIAGNOSTIC (RECTUM) 02/03/2015 microscopic colitis COLONOSCOPY, DIAGNOSTIC (RECTUM) 02/03/2015 COLONOSCOPY FLEXIBLE PROXIMAL DIAGNOSTIC performed by Mervin Wise MD at [facility]COPY [facility] CORONARY ANGIOGRAPHY W/LEFT HEART CATH N/A 05/02/2023 CORONARY ANGIOGRAPHY W/LEFT HEART CATH performed by Katalina Pond MD at [facility] DENTAL SURGERY PROCEDURE NEC 1976 Dental Surgery Procedure-wisdom teeth extraction EXC BREAST LESION RADMARK Right 06/30/2020 EXCISION OF BREAST LESION RADIOLOGICAL MARKER performed by Alysha Owens MD at OR [facility] IDENTIFY SENTINEL NODE, RADIOACTIVE TRACER Right 07/21/2020 INJECTION PROCEDURE FOR IDENTIFICATION SENTINEL NODE performed by Alysha Owens MD at OR [facility] INFORMATION Bilateral 2010 cataract MAMMOGRAM BREAST NEEDLE BIOPSY CORE LEFT Left 06/08/2009 benign MAMMOGRAM SCREENING-BILATERAL 10/23/2007 birad 1 MASTECTOMY, PARTIAL Right 07/21/2020 MASTECTOMY PARTIAL performed by Alysha Owens MD at OR [facility] PAP SCREEN 06/08/2009 satisfactory for eval RADIATION THERAPY Completed September 2020 REPLACE AORTIC VALVE, PERCUTANEOUS FEMORAL N/A 06/05/2023 REPLACE AORTIC VALVE, PERCUTANEOUS FEMORAL performed by Mat Lucia MD at [facility] REPLACE AORTIC VALVE, PERCUTANEOUS FEMORAL N/A 06/05/2023 REPLACE AORTIC VALVE, PERCUTANEOUS FEMORAL performed by Jose Roland MD at [facility] Subjective: Pt agreeable to PT IE. Social History/Disposition Lives with: Spouse;Family (daughter) (08/18/23950) Assistance available: Yes (08/18/23950) Dwelling type: Multi-story home (08/18/23950) Entry steps: Ramp (08/18/23950) Inside steps: 10 - 15 (08/18/23950) Bedroom location: 2nd floor (sleeps upright on couch; 1st floor) (08/18/23950) Bath location: 1st floor powder room;2nd floor full bath (08/18/23950) Prior Level of Function Reported by: Patient (08/18/23950) Ambulation: Ambulatory with device;Non-ambulatory with manual wheelchair (08/18/23950) Ambulatory Device: Cane (08/18/23950) Devices at home: Rollator;Straight cane;Wheelchair (08/18/23950) Observations Consciousness: Alert (08/18/23950) Orientation: Oriented times 4 (08/18/23950) Psychosocial: Patient can communicate basic needs;Patient can converse in a social setting (08/18/23950) Other Findings: Yes (08/18/23950) Findings: Light touch sensation;Coordination;Edema;Tone (08/18/23950) Light Touch Sensation Results: Intact;LLE;RLE (08/18/23950) Coordination Results: Intact;RLE;LLE (08/18/23950) Edema Results: Intact;LLE;RLE (08/18/23950) Tone Results: Intact;LLE;RLE (08/18/23950) Pain: No complaints of pain at rest; RN present in room and aware. Range of Motion Range of Motion: WFL (B/L LE active/assist ROM) (08/18/23950) Strength Assessment Strength Assessment: (B/L ankles 4-/5, knees 3+/5, hips 3-/5) (08/18/23950) Patient and or Family Goal(s): to get well and to return home Patient Education Review of Precautions: Safety;Total Hip;Fall (08/18/23950) Safety Awareness: Patient verbalizes insight of current deficits;Patient demonstrates carryover of insight during functional tasks;Patient can communicate basic needs;Needs cueing supervision (08/18/23950) Preferred learning method: Combination (08/18/23950) Barriers to learning: Medication;Medical Status (08/18/23950) Method of Education: Verbalized to patient;Demonstrated to patient;Patient demonstrated task (08/18/23950) Topic of Education: Safety with mobility, Goals/plan of care, Fall prevention, and B/L MERVAT precautions Method of Education: Verbal discussion and explanation provided to patient: verbalized understanding and or agreement of this information and demonstrated the exercise and or task Demonstrated the above task to patient: verbalized understanding and or agreement of this information and demonstrated the exercise and or task Treatment Provided: Evaluation Moderate Complexity 9 minutes - [id number]: Patient was cooperative and pleasant during treatment session. Moderate complexity evaluation performed and 1-2 personal factors or comorbidities were identified that will impact plan of care, including cardiac history. Patient presents with limitations in range of motion, strength, and endurance, which will impact plan of care. These limitations will be addressed by the goals set for this patient. Alarm Status Patient positioned in: Bed (08/18/23950) With: Bed alarm intact and functioning and call soto in reach (08/18/23950) Treatment Status: Treatment at bedside (08/18/23950) Goals: Increase ROM of: B/L hips to WNL (active ROM) Increase Strength of: B/L LE to at least 4/5 Assess functional mobility as able/appropriate Time Frame: 10 visits Assessment: Pt is a 68 year old female presenting to [facility] with medical diagnosis of primary OA of B/L hips; s/p B/L MERVAT on 08/17/23. Pt educated on role of PT in the acute care setting; also, provided pt education regarding hip precautions- (ANT/POST/ABD) and use of ABD pillow, ptacknowledged understanding. Pt agreeable to PT initial evaluation; bedrest evaluation performed this date per RN secondary to medical status, to include pressors, hypotension. Pt received lying supine in bed, HOB elevated>30 degrees at the start of session. Pt reports that prior to current admission, she was using SPC for household mobility, w/c for community distances. Pt reported pain 0/10. Pt participated in assessment of B/L LE strength via MMT, B/L LE ROM, sensation, coordination and tone. Pt relieved lying supine in bed, HOB elevated>30 degrees, bed alarm activated with call soto and all other needs within reach. Physical therapy diagnoses include decreased B/L hip active ROM, B/L LE strength impairments, decreased endurance. Pt will benefit from skilled PT services throughoutcurrent admission to maximize level of function. Discharge consideration to be provided following PT out of bed evaluation. LADLER to perform TE this date. Deficits requiring P.T. treatment needs: Weakness;Endurance;Lower extremity strength;Range of motion (08/18/23 0951) Equipment Needs: RW Treatment Plan: ROM exercises and Strengthening exercises, MERVAT precautions Assess functional mobility as able/appropriate Anticipated Frequency (on eval): BID (08/18/23 0951) AM PAC Score with Stairs: AM-PAC assessment not scored at this time due to bedrest evaluation. Please refer to future AM-PAC calculations of functional mobility as they become available. b * Carolina Hendrix RN - 08/18/2023 9:42 AM EDTAssociated Order(s): CARE MANAGEMENT CONSULT IP CARE MANAGEMENT - ADULT INITIAL SCREENING [facility] [address] Name: Elsa Reyes Location: [facility] H777/A Date: 08/18/2023 Time: 9:42 AM Discussed patient with the interdisciplinary care team. This Pyrometallurgical Engineer performed a chart review and met with Elsa at bedside to complete admission screen and assessed needs for transition planning. The resident caregiver role and services were explained and emotional support was provided. Chief Complaint: No chief complaint on file. Prior Living Arrangements What was your living situation prior to admission/observation?: With Spouse;With Child (08/17/232322) Do you have serious difficulty walking or climbing stairs? (5 years old or older): Yes (08/17/232322) History of falling: No (08/18/23799) Prior Level of Functioning Describe the patient's ability prior to admission/observation to perform ADLs: Requires assistance (08/17/232322) Requires assistance with: Bathing (08/17/232322) Describe the patient's mobility status prior to admission: Patient ambulates independently (08/17/232322) Patient uses assistive device: Yes (08/17/232322) If yes, choose:: Cane;Walker;Wheelchair (08/17/232322) Caregiver Information Patient Contacts Name Relation Home Work Mobile Harry Reyes Spouse [phone] Funmilayo Reyes Adult Child [phone] Risk Stratification/Psychosocial/Care Gaps Readmission Risk Score: 17.98 (08/18/23 0800) AM-PAC Score With Stairs : 6 (08/17/232099) Prior to Admission Services Outpatient Pyrometallurgical Engineer: No care 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 CM met with patient at bedside. Patient lives in a 2 story home with 1st floor bathroom. Patient states she lives with her spouse and daughter. Patient ambulates with a cane. Patient states that there are 2 steps to get into her home however, her has built a ramp to help with access into the home., Patient has not had any services in the past but is open and agreeable if she would need services post discharge. CM will continue to follow. For further screening information, please refer to the Care Management flow document. documented in this encounter Nursing Notes * Haile Dale RN - 08/26/2023 10:17 AM EDT I have conducted the discharge appointment with the patient, nursing, and provider (Dr. Chappell) on08/26/2023 at 0932 . This discussion occurred bedside. Meds to beds offered: no. The following post care is planned: SNF/IRF. I encouraged the patient and/or family to call the hospital with any questions or concerns about the hospital admission. * Xavi Vasquez RN - 08/18/2023 12:00 AM EDT Dual Licensed Skin Assessment completed by Xavi Vasquez RN and Lambert Hui RN. The patient is/has a N/A Skin Breakdown (includes non blanchable erythema): Yes - Surgical/Procedural changes only. * Zuleyma Bashir RN - 08/17/2023 1:47 PM EDT Dual Licensed Skin Assessment completed by Zuleyma Jones RN and Sujey Rice RN. The patient is/has a N/A Skin Breakdown (includes non blanchable erythema): No Patient/caregiver, Chiara, verbalized understanding that a pressure injury is anticipated due to the following risk factors: prolonged medical procedure/surgery greater than 3 hours within the last 6 days and diabetes, despite pressure injury prevention measures of heels elevated, moisture absorbent pads, and pillows and/or wedges being in place or due to patient's refusal/inability to comply with preventive measures. The areas at risk include but are not limited to the sacrum, bony prominences, heels, etc. Education was provided about patient's condition and treatment as well as unit standards for turning, repositioning, and skin care. documented in this encounter OR Notes * OR Surgeon - Chito Cochran MD - 08/17/2023 6:52 PM EDT [facility] [address] [facility] [address] OPERATIVE REPORT Name: Elsa Reyes Date: 08/17/2023 Time: 7:14 PM Location: [facility] Service: Orthopedic Surgery Date of Operation: 08/17/2023 Pre-op Diagnosis: Degenerative joint disease, bilateral hips Post-op Diagnosis: Same. Operation: Bilateral Total Hip Arthroplasty Injection of Muscular and Subcutaneous Tissue for Post-Op Analgesia Implants: Implant Name Type Inv. Item Serial No. Central Supply Assistant Lot No. LRB No. Used Action HIP SHELL TRIDENT X3 10 [id number] - [id number] HIP SHELL TRIDENT X3 10 36X50 ALEYDA : ORTHOPAEDICS [id number] Left 1 Implanted IMPLANT HIP ACETAB SHELL 52E - [id number] IMPLANT HIP ACETAB SHELL 52E ALEYDA : ORTHOPAEDICS [id number] Left 1 Implanted 6.5MM LOW PROFILE HEX SCREW 6 - [id number] 6.5MM LOW PROFILE HEX SCREW 6 ALEYDA : ORTHOPAEDICS [id number] Left 1 Implanted SCREW LOW PROFILE [id number] - [id number] SCREW LOW PROFILE [id number] ALEYDA : ORTHOPAEDICS [id number] Left 1 Implanted IMPLANT STEM HIP COLR HIGH 1 - [id number] IMPLANT STEM HIP COLR HIGH 1 ALEYDA : ORTHOPAEDICS [id number] Left 1 Implanted HIP HD NK GLORIA GREWAL D 36 25 - [id number] HIP HD NK GLORIA Chavira 36 25 ALEYDA : ORTHOPAEDICS [id number] Left 1 Implanted HIP SHELL TRIDENT X3 10 36X50 - [id number] HIP SHELL TRIDENT X3 10 36X50 ALEYDA : ORTHOPAEDICS [id number] Right 1 Implanted IMPLANT HIP ACETAB SHELL 52E - [id number] IMPLANT HIP ACETAB SHELL 52E ALEYDA : ORTHOPAEDICS [id number] Right 1 Implanted SCREW BONE 6.5X30MM - [id number] SCREW BONE 6.5X30MM ALEYDA : ORTHOPAEDICS [id number] Right 1 Implanted SCREW LOW PROFILE 6.3YVM99BV - [id number] SCREW LOW PROFILE [id number] ALEYDA : ORTHOPAEDICS [id number] 1 Implanted IMPLANT STEM HIP COLR HIGH 2 - [id number] IMPLANT STEM HIP COLR HIGH 2 ALEYDA : ORTHOPAEDICS [id number] Right 1 Implanted HIP HD NK GLORIA GREWAL D 36 25 - [id number] HIP HD NK GLORIA D 36 25 ALEYDA : ORTHOPAEDICS [id number] Right 1 Implanted Surgeon: Chito Cochran MD Assistants: Junior Chavez PA-C and SAM Bradley Anesthesia: 61 ml of Local anesthesia: 0.25% bupivacaine, exparel and toradol infiltrated in the incision Spinal anesthesia Drains: none Estimated Blood Loss: 1200 ml. IV Fluids: crystalloid and 164 ml cellsaver and 2units prbcs. Urine Output: N/A Findings: severe hip djd Specimen and Disposition: None Apparent Intraoperative Complications: none Patient Condition: stable Disposition: Post Anesthesia Care Unit Indications and History: The patient is a 68 year old female with significant degenerative joint disease and has failed multiple conservative treatments, thus presents for a MERVAT. Operative consent was obtained after a thorough discussion of the risks and benefits of the procedure including but not limited to infection, bleeding, blood clot, pulmonary embolus, neurologic injury, leg length discrepancy, fracture, hip dislocation, possible revision surgery in the future and failure of fixation. The patient concurred with the proposed plan, giving informed consent. Description of Operation: The patient was seen in the Holding Room and the site of surgery properly noted/marked. The patientwas taken to Operating Room, identified as Elsa Reyes and the procedure verified. A time-out was held and the correct procedure and correct site were confirmed with the consent. After identification of patient and surgical site, induction of anesthesia was performed. The appropriate prophylactic antibiotics were given within one hour of incision. The patient was positioned in the lateral position and all bony prominences were well padded. The left hip was prepped and draped in a sterile fashion. With the patient in the lateral position, a direct lateral (Hardinge) approach was performed The acetabulum was exposed with inferior and superior retractors, two being steiman pins. The acetabulum was cleared of soft tissue and cartilage then reamed up to one size under to the size which was appropriate for implantation of a porous-coated shell. The implant was impacted into position and achieved good stability in the appropriate anteversion and abduction. Remaining osteophytes were removed with curved osteotome and ronguer. The appropriate sized liner was then impacted in position. Attention was then turned to the femur. The femoral canal was opened up with a box osteotome, a starting reamer followed by a broach. We continued to broach the femoral canal up to the size with excellent fit and fill with rotational stability. We left the broach in and trialed. The appropriate length head was chosen to offer the best combination of length and offset and stability. The hip was stable to flexion and internal rotation as well as full extension, abduction and external rotation. These trial components were then removed. The final femoral component was impacted into place and the final head selection was impacted onto the clean dry taper. The hip was relocated, and wound was copiously irrigated. The capsule and external rotators were repaired with #5 Fiberwire. The fascia was closed with #1 Vicryl. The subcutaneous layer was closed with 2-0 and 3-0 Monocryl, the skin edges were re-approximated with olinda. Final needle and sponge counts were correct. The wound was then wiped dry, dressed with Aquacell surgical dressing and secured with tape. The right hip was prepped and draped in a sterile fashion. With the patient in the lateral position, a direct lateral (Hardinge) approach was performed The acetabulum was exposed with inferior and superior retractors, two being steiman pins. The acetabulum was cleared of soft tissue and cartilage then reamed up to one size under to the size which was appropriate for implantation of a porous-coated shell. The implant was impacted into position and achieved good stability in the appropriate anteversion and abduction. Remaining osteophytes were removed with curved osteotome and ronguer. The appropriate sized liner was then impacted in position. Attention was then turned to the femur. The femoral canal was opened up with a box osteotome, a starting reamer followed by a broach. We continued to broach the femoral canal up to the size with excellent fit and fill with rotational stability. We left the broach in and trialed. The appropriate length head was chosen to offer the best combination of length and offset and stability. The hip was stable to flexion and internal rotation as well as full extension, abduction and external rotation. These trial components were then removed. The final femoral component was impacted into place and the final head selection was impacted onto the clean dry taper. The hip was relocated, and wound was copiously irrigated. The capsule and external rotators were repaired with #5 Fiberwire. The fascia was closed with #1 Vicryl. The subcutaneous layer was closed with 2-0 and 3-0 Monocryl, the skin edges were re-approximated with olinda. Final needle and sponge counts were correct. The wound was then wiped dry, dressed with Aquacell surgical dressing and secured with tape. The patient was awakened from anesthesia with no apparent complications and taken to the PACU in stable condition. The patient tolerated the procedure well. Was there a qualified resident that took part in the case? No - The skilled assistance of the advanced practitioner/physician was necessary for the successful completion of this case. Dam Operator name: Junior Chavez PA-C Dam Operator role: The advanced practitioner/physician was essential for retraction, suction, irrigation, proper positioning, maintaining reduction, placement of hardware, sterile draping, tissue retraction, extremity manipulation, and wound closure I understand that section 1842 (b)(7)(D) of the Social Security Act generally prohibits Medicare physician fee schedule payment for the services of [id number] in teaching hospitals when qualified residents are available to furnish such services. I certify that the services for which paymd nt is claimed were medically necessary, and that no qualified resident was available to perform theservices. I further understand that these services are subject to post-payment review by the Medicare carrier. The surgery took an extra 40 minutes due to the patient's obesity and a 22 modifier should be filedfor the surgery. After the surgery I called her and we discussed the surgery and to leave the bandage intactand dry until RTC in 3 weeks. Attestation: Dr. Cochran was present and scrubbed for the critical parts of the procedure Chito Cochran MD documented in this encounter Miscellaneous Notes * Ancillary Progress Note - Aspen Holcomb RN - 08/25/2023 3:31 PM EDT CARE MANAGEMENT - ADULT TRANSITION NOTE [facility] [address] Name: Elsa Reyes Location: [facility] H777/A Date: 08/25/2023 Time: 3:32 PM Risk Stratification Risk Stratification Psycho Social / Medical Concerns Identified: Adjustment to illness/injury (08/20/23 1008) Accessed Neighborly to connect patients to social care resources: No (08/20/23 100) OBRA or OPTIONS needed for placement: No (08/20/231007) Readmission Risk Score: 15.44 (08/25/23 1201) AM-PAC Score With Stairs : 12 (08/25/23 0810) Caregiver Information Patient Contacts Name Relation Home Work Mobile Harry Reyes Spouse [phone] Funmilayo Reyes Adult Child [phone] Transition of Care Checklist Transition of Care Checklist (aka Readmission Risk Score) Discharge Disposition: Post-Acute (08/21/231126) Post Acute: Moderate (12-17%) (08/21/231126) Narrative: Spoke with Laura at [facility], she is able to admit patient tomorrow. Primary care notified. , Frank notified and patient updated. Has a 10AM ride set up. [facility] has pink slip. Will continue to follow for discharge path, needs, and planning. Anticipated Transportation at Discharge: bls Patient/Family Expectations: IRF Transition Planning Transition Planning Transition Plan/Considerations: Needs identified - Discharge planning services explained to patientfamily / caregiver - Choices offered;Discussed at Interdisciplinary Team / Boost Rounds (08/25/23 1531) Transition services explained and patient/family/caregiver agreeable: Inpatient Rehab (08/24/23 1500) Transition planning services explained and patient/family/caregiver agreeable: (n/a) (08/24/23 1500) CMS Quality Rating provided to patient: Yes (08/21/23 112) Repisodic Choice provided to patient: Yes (08/21/231126) Transition plan discussed with - Enter name and phone #: Elsa (08/21/231126) Insurance Considerations: Precertification needed for Post-Acute Care (08/21/231126) Referral to Community Agency : N/A (08/21/231126) Post-Acute Care needs identified and Referrals Completed: N/A (08/21/231126) Additional Considerations: Care Management will continue to monitor and assist with discharge planning needs * Ancillary Progress Note - Anil Morris PTA - 08/25/2023 2:30 PM EDT PROGRESS NOTE - Physical Therapy [address] [place] [address] Name: Elsa Reyes [address]: 08/25/2023 Time: 2:30 PM Patient seen for physical therapy session. Patient performed therapeutic exercises to increase strength and maintain joint integrity. Active/active assisted range when appropriate. Please see flow sheet for further details. * Ancillary Progress Note - Agnes Austin COTA - 08/25/2023 2:00 PM EDT PROGRESS NOTE - Occupational Therapy [address] [address] Name: Elsa Reyes Location: [facility]/A Date: 08/25/2023 Time: 2:00 PM Elsa Reyes is a 68 year old female. Patient Status: Inpatient Insurance: Payor: [facility] GOLD Plan: [facility] CLASSIC COMPLETE RX MH-GD Product Type: *No Product type* Patient Seen: at bedside, nursing cleared patient for therapy Patient Identified By: Name, ID Band and Date Diagnosis: B/L MERVAT (08/25/23 1400) Status of treatment: Treatment completed (08/25/23 1400) Orders: OT evaluation and treatment (08/25/231399) Weight Bearing Status: Weight bearing as tolerated (08/25/231399) Precautions: A-line;Falls;Safety;Total hip (posterior, anterior, abduction) (08/25/231399) Total Treatment Time: 15 (08/25/231399) Subjective: agreeable; "I was just up and walked to the bedside commode and back." Pain: No complaints of pain Observations Consciousness: Alert (08/25/231399) Orientation: Oriented times 4 (08/25/231399) Psychosocial: Patient can communicate basic needs;Patient can converse in a social setting (08/25/231399) Sitting posture: Not assessed (08/25/231399) Standing posture: Not assessed (08/25/231399) Safety awareness: The Patient verbalizes insight of current deficits.;The Patient demonstrates carryover of insight during functional tasks. (08/25/231399) Other Findings Endurance: Fair (UE exercises) (08/25/231399) Light touch sensation: Intact (08/18/231001) Proprioception: Intact (08/18/231001) Coordination: Intact (08/18/23 1002) Tone: Normal tone (08/18/23 1002) Edema: Edema noted (08/18/231001) Extremity: RUE (08/18/231001) Functional Ambulation Assistive Device: No device (08/25/231399) Distance in feet:: 0 (08/25/231399) Level of Assistance: Not Tested (08/25/231399) Patient Education Education Topic: Role of OT;Plan of care goals (08/25/231399) Review of Precautions: Total Hip;Safety;Fall (08/25/231399) Review of Exercises: Verbal Exercises Provided;Pt Demonstrated Exercise (08/25/231399) Teachback Test Complete: Yes (08/25/231399) Method of Education: Verbalized to patient;Demonstrated to patient (08/25/231399) Education Provided to: Patient (08/25/231399) Response to Education: Receptive and agreeable to education (08/25/231399) Barriers to learning: None (08/25/231399) Preferred learning method: Combination (08/25/231399) Alarm Status Patient positioned in: Chair (08/25/231399) With: Pressure pad alarm intact and functioning and call soto in reach (08/25/231399) Treatment Provided: Therapeutic Procedure: 15 minutes Upper Extremity exercise Demonstrate Exercises: LUE;RUE;Shoulder;Elbow;Wrist;Grasp;2 sets of 10;Flexion;Extension;Adduction;Abduction;Scapular protraction/retraction (08/25/231399) Peformed in: Seated (08/25/231399) Deficits requiring O.T. treatment needs: ADL/self- care;Balance;Endurance;Functional mobility;Safety;Upper extremity strength;Weakness (08/25/231399) Assessment: Pt. seen in room for therapy. Agreeable to BUE exercises. Isometric exercises completedto promote strength and endurance needed for ADLs. Pt. left with all needs met. Please consider post-acute care services which may include home health, fci, outpatient therapy or inpatient rehabilitation. The level of care will be determined in collaboration with patient, family/caregiver and care team members. Plan: Anticipated Frequency (on eval): Daily (08/25/231399) Equipment Equipment used in Therapy: No Device (08/25/231399) AM-PAC assessment not scored at this time due to having completed with nursing and staff prior to session. Please refer to future AM-PAC calculations of functional mobility as they become available. * Ancillary Progress Note - Anil Morris, LADLER - 08/25/2023 8:10 AM EDT PROGRESS NOTE - Physical Therapy [facility] [address] Name: Elsa Reyes Location: [facility] H777/A Date: 08/25/2023 Time: 8:10 AM Elsa Reyes is a/an 68 year old female. Patient Status: Inpatient Insurance: Payor: [facility] GOLD Plan: [facility] CLASSIC COMPLETE RX MH-GD Product Type: *No Product type* Patient Seen: at bedside, nursing cleared patient for therapy Patient Identified By: Name, ID Band and Date Diagnosis: OA B hips (08/25/23809) Status of treatment: Treatment completed (08/25/23809) Orders: PT evaluation and treatment (08/25/23809) Weight Bearing Status: Weight bearing as tolerated (08/25/23809) Precautions: Total hip (08/25/23809) Total Treatment Time--free text: 15 (08/25/23809) Subjective: Patient was agreeable to therapy. Pain: Patient has complaints of pain. Pain located bilateral hips. 08/19 when moving Staff Notified P.T. Bed Mobility Roll (Right): Maximal Assistance (08/20/23 0935) Roll (Left): Maximal Assistance (08/20/23 0935) Supine-Sit: Maximal Assistance (08/25/23 08) Sit-Supine: Maximal Assistance (x2) (08/24/23 1508) Transfers Sit-Stand: Moderate Assistance (08/25/23809) Stand-Sit: Contact Guard (08/25/23809) W/C-Bed/Mat: Minimal Assistance (x2; stand pivot) (08/23/23 09) Ambulation: Distance ambulated (feet): 6 Assistive Device: Rolling walker Assist: Contact Guard due to pain, balance and lack of mobility Balance Sit (Static): Fair (08/25/23 08) Sit (Dynamic): Fair (-) (08/25/23809) Stand (Static): Fair (-) (08/25/23809) Stand (Dynamic): Fair (-) (08/25/23809) Patient and or Family Goal(s): to get well and to return home Topic of Education: Safety with mobility, Goals/plan of care, and Use of assistive device Extremity Exercise Supine: Ankle;Isometrics (08/24/23 1508) Hip : Bilateral LE;Flexion;2 sets of 10 (08/23/23 1410) Knee : Bilateral LE;Heel slide;2 sets of 10 (08/23/23 1410) Ankle: Bilateral LE;Plantar flexion;Dorsiflexion;2 sets of 10 (08/24/23 1508) Isometrics: Bilateral LE;Glute sets;Quad sets;1 set of 10 (08/24/23 1508) Method of Education: Verbal discussion and explanation provided to patient: demonstrated the exercise and or task Treatment Provided: Therapeutic Activities 15 minutes: bed mobility training transfer training Gait short distance Alarm Status Patient positioned in: Chair (08/25/23809) With: Pressure pad alarm intact and functioning and call soto in reach (08/25/23809) Following session patient seated OOB in chair with chair alarm activated and cord plugged into callbell system. Patient Education Review of Precautions: Total Hip (08/25/23809) Safety Awareness: Patient verbalizes insight of current deficits (08/25/23809) Preferred learning method: Combination (08/25/23809) Barriers to learning: None (08/25/23809) Method of Education: Verbalized to patient (08/25/23809) Assessment: Patient supine in bed upon arrival. Patient performed bed mobility getting to edge of bed needing significant assistance. Patient sat edge of bed maintaining balance while challenged withperturbations. Patient then transferred to standing to rolling walker where she stood for 2-3 minutes. Patient needed to sit and rest for a period of time. Patient then stood once again stood for 1 minute prior to ambulating to beside recliner. Patient having fear and anxiety given cues to breath and relax, and encouraged. Patient needed rest periods and requested to be finished for now. Patient was made comfortable with all needs met. Please consider post-acute care services which may include home health, fci, outpatient therapy or inpatient rehabilitation. The level of care willbe determined in collaboration with patient, family/caregiver and care team members. Deficits requiring P.T. treatment needs: Safety;Mobility;Balance;Range of motion (08/25/23809) Plan: Continue with current treatment plan established on evaluation. AM PAC Score with Stairs: A portion of this AM-PAC assessment not scored based on functional assessment; rather clinical decision making utilized based on current findings and/or prior level of function. Please refer to future AM-PAC calculations of functional ability as they become available. * Ancillary Progress Note - Roman Martinez RN - 08/24/2023 3:08 PM EDT [facility] auth for acute inpatient rehab at [facility]: [id number] * Ancillary Progress Note - Iva Capps PTA - 08/24/2023 3:08 PM EDT PROGRESS NOTE - Physical Therapy [address] [address] Name: Elsa Reyes Location: [address] Date: 08/24/2023 Time: 4:25 PM Saw patient for second treatment today with PT. Pt stood from chair with assistance from 2 and usedbedside commode (ambulated 3 ft with device). Required assistance with hygiene. She then took 4 side steps to bed with assistance from 1, and Rolling walker. Pt presents with antalgic gait and fear with transfers due to recent procedure. Required Maximal assistance from 2 to get back into bed, supine. Once in bed, pt performed supine exercises to maintain strength. Please see updated flowsheet for more information. * Ancillary Progress Note - Roman Martinez RN - 08/24/2023 11:20 AM EDT CARE MANAGEMENT - ADULT TRANSITION NOTE [address] [address] Name: Elsa Reyes Location: [address] Date: 08/24/2023 Time: 4:05 PM Risk Stratification Risk Stratification Psycho Social / Medical Concerns Identified: Adjustment to illness/injury (08/20/23 1008) Accessed [employer] to connect patients to social care resources: No (08/20/23 1008) OBRA or OPTIONS needed for placement: No (08/20/23 1008) Readmission Risk Score: 17.11 (08/24/23 1600) AM-PAC Score With Stairs : 12 (08/24/23 0915) Caregiver Information Patient Contacts Name Relation Home Work Mobile Harry Reyes Spouse [phone] Funmilayo Reyes Adult Child [phone] Transition of Care Checklist Transition of Care Checklist (aka Readmission Risk Score) Discharge Disposition: Post-Acute (08/21/23 1127) Post Acute: Moderate (12-17%) (08/21/231126) Narrative: has been following Elsa's hospital course. Patient discussed in IDT rounds. They arenot medically stable for discharge at this time. [facility] has denied auth for acute inpatient rehab. and Dr. Chappell aware of denial and opportunity for [id number] appeal. Elsa has had acceptances from [facility], bed not available til Sunday, [facility], left VM for admissions, [facility], left VM for Patricia, and [facility], left VM for Little. Discharge plan evolving - will continue to follow for discharge needs. 1500: CM notified that [facility] denial for IP rehab was overturned. CM notified Lor at [facility]. She stated that they will reach out to tomorrow morning regarding bed availability. has BLS rideset up for 1400 tomorrow with [facility]. CM spoke to her , Frank, to update discharge plan and insurance overturn. He stated that he will wait to hear from in the morning and will meet her at facility if she is transferred. Anticipated Transportation at Discharge: BLS Patient/Family Expectations: [facility] Transition Planning Transition Planning Transition Plan/Considerations: Needs identified - Discharge planning services explained to patientfamily / caregiver - Choices offered;Discussed at Interdisciplinary Team / Boost Rounds;CM providedcontact information and will update plan as needs arise (08/24/231499) Transition services explained and patient/family/caregiver agreeable: Inpatient Rehab (08/24/231499) Transition planning services explained and patient/family/caregiver agreeable: (n/a) (08/24/231499) CMS Quality Rating provided to patient: Yes (08/21/231126) Repisodic Choice provided to patient: Yes (08/21/231126) Transition plan discussed with - Enter name and phone #: Elsa (08/21/231126) Insurance Considerations: Precertification needed for Post-Acute Care (08/21/231126) Referral to Community Agency : N/A (08/21/231126) Post-Acute Care needs identified and Referrals Completed: N/A (08/21/231126) Additional Considerations: n/a Care Management will continue to monitor and assist with discharge planning needs * Ancillary Progress Note - Shell Echeverria COTA/L - 08/24/2023 9:43 AM EDT PROGRESS NOTE - Occupational Therapy [address] [address] Name: Elsa Reyes Location: [facility] H777/A Date: 08/24/2023 Time: 9:43 AM Elsa Reyes is a 68 year old female. Patient Status: Inpatient Insurance: Payor: [facility] [employer] Plan: [facility] [employer] COMPLETE RX MH-GD Product Type: *No Product type* Patient Seen: at bedside, nursing cleared patient for therapy Patient Identified By: Name, ID Band and Date Diagnosis: B/L MERVAT (08/24/23942) Status of treatment: Treatment completed (08/24/23942) Orders: OT evaluation and treatment (08/24/23942) Weight Bearing Status: Weight bearing as tolerated (08/24/23942) Precautions: Alarms;Safety;Falls;Total hip (posterior, anterior, abduction) (08/24/23942) Total Treatment Time: 28 (08/24/23942) Subjective: Patient agreeable. Pain: No complaints of pain Observations Consciousness: Alert (08/24/23942) Orientation: Oriented times 4 (08/24/23942) Psychosocial: Patient can communicate basic needs;Patient can converse in a social setting (08/24/23942) Sitting posture: Forward head;Rounded shoulders (08/24/23942) Standing posture: Forward head;Rounded shoulders (08/24/23942) Safety awareness: The Patient verbalizes insight of current deficits.;The Patient demonstrates carryover of insight during functional tasks. (08/24/23942) Current Functional Status: Activities of Daily Living: Self Care Grooming: Supervision (Please comment) (wash face) (08/24/23942) Toileting: Maximal Assistance (pericare in standing after urinating) (08/24/23942) Dressing Upper Body: Minimal Assistance (manage gown) (08/24/23942) Lower Body: Minimal Assistance (08/23/23905) Functional Ambulation Assistive Device: Rolling walker (08/24/23942) Distance in feet:: 3 (08/24/23942) Level of Assistance: Minimal Assistance (08/24/23942) Bed Mobility Supine-Sit: Maximal Assistance (x2) (08/24/23942) OT Transfers Sit-Stand: Minimal Assistance (x2) (08/24/23942) Stand-Sit: Minimal Assistance (x2) (08/24/23942) Toilet: Minimal Assistance (bedside commode) (08/24/23942) Balance Sit (Static): Fair (08/24/23942) Sit (Dynamic): Fair (-) (08/24/23942) Stand (Static): Poor (+) (08/24/23942) Stand (Dynamic): Poor (+) (08/24/23942) Patient Education Education Topic: Role of OT (08/24/23942) Review of Precautions: Total Hip;Fall;Safety (08/24/23942) Review of Exercises: Pt Demonstrated Exercise;Verbal Exercises Provided (08/23/23905) Method of Education: Verbalized to patient (08/24/23942) Education Provided to: Patient (08/24/23942) Response to Education: Receptive and agreeable to education (08/24/23942) Barriers to learning: Medical status (08/24/23942) Preferred learning method: Combination (08/24/23942) Alarm Status Patient positioned in: Chair (08/24/23942) With: Pressure pad alarm intact and functioning and call soto in reach (08/24/23942) Following session patient seated OOB in chair with chair alarm activated. Chair alarm (did not havecord to plug into call soto system and/or room did not have port to plug cord into call soto system). Patient's nurse was made aware. Treatment Provided: Self Mcc Management Trainin minutes Deficits requiring O.T. treatment needs: ADL/self- care;Balance;Endurance;Functional mobility;Safety;Upper extremity strength;Weakness (06/14/24 0943) Assessment: Patient supine in bed upon arrival, pleasant and cooperative. Educated on hip precautions prior to mobility training, reported understanding and agreement. Bed mobility performed with maximal assistance x2. Upon sitting on edge of bed, Patient completed ADLs with above levels of assistance, required supervision/contact guarding maintain balance. Sit to stand transfers completed from varying surfaces, required assistance of 2 to rise from bedside and assistance of 1 from bedside commode/reclining chair. Patient required maximal assistance for toileting while in stance in front of bedside commode, reports having difficulty performing this independently at baseline. Presented with i ncreased anxiety with mobility, reported dizziness and lightheadedness. BP checked and was 128/70. Reported symptoms subsided after sitting 2-3 minutes in chair. Left sitting in reclining chair with all needs met at conclusion of therapy session. Please consider post-acute care services which may include home health, fci, outpatient therapy or inpatient rehabilitation. The level of care will be determined in collaboration with patient, family/caregiver and care team members. Plan: To continue plan of care. Anticipated Frequency (on eval): Daily (08/24/23942) Equipment Equipment used in Therapy: Rolling walker;Bedside commode (08/24/23942) Equipment Needs Equipment needs: Rolling walker (08/23/23905) AM-PAC Help From Another Person Eating Meals: A little (08/24/23942) Help From Another Person Taking Care of Personal Grooming: A little (08/24/23942) Help From Another Person To Put On/Take Off Upper Body Clothing: A little (08/24/23942) Help From Another Person To Put On/Take Off Lower Body Clothing: A lot (08/24/23942) Help From Another Person Toileting: A lot (08/24/23942) Help From Another Person Bathing: A lot (08/24/23942) OT AM-PAC Score: 15 (08/24/23942) OT AM-PAC t-Scale Score: 34.69 (08/24/23942) HLM (Highest Level of Mobility) Goal: Level 4 move to chair/commode (08/24/23914) A portion of this AM-PAC assessment not scored based on functional assessment; rather clinical decision making utilized based on current findings and/or prior level of function. Please refer to future AM-PAC calculations of functional ability as they become available. * Ancillary Progress Note - Iva Capps PTA - 08/24/2023 9:15 AM EDT PROGRESS NOTE - Physical Therapy [facility] [address] Name: Elsa Reyes Location: [facility] H777/A Date: 08/24/2023 Time: 09:15 AM Elsa Reyes is a/an 68 year old female. Patient Status: Inpatient Insurance: Payor: [facility] [employer] Plan: [facility] [employer] COMPLETE RX MH-GD Product Type: *No Product type* Patient Seen: at bedside, nursing cleared patient for therapy Patient Identified By: Name, ID Band and Date Diagnosis: OA B hips (08/24/23914) Status of treatment: Treatment completed (08/24/23914) Orders: PT evaluation and treatment (08/24/23914) Weight Bearing Status: Weight bearing as tolerated (08/24/23914) Precautions: Alarms;Falls;Total hip (anterior/posterior; no hip ABD) (08/24/23914) Total Treatment Time--free text: 28 (08/24/23914) Subjective: pt agreeable to treatment Pain: No complaints of pain P.T. Bed Mobility Supine-Sit: Maximal Assistance (x2) (08/24/23914) Transfers Sit-Stand: Minimal Assistance (x2 progressing to assist x1) (08/24/23914) Stand-Sit: Minimal Assistance (08/24/23914) Ambulation: Distance ambulated (feet): 4 Assistive Device: Rolling walker Assist: Minimal Assistance Balance Sit (Static): Fair (08/24/23914) Sit (Dynamic): (Fair -) (08/24/23914) Stand (Static): (Poor +) (08/24/23914) Stand (Dynamic): (Poor +) (08/24/23914) Patient and or Family Goal(s): to get well Topic of Education: Safety with mobility, Use of assistive device, and Fall prevention Method of Education: Verbal discussion and explanation provided to patient: verbalized understanding and or agreement of this information Treatment Provided: Therapeutic Activities 15 minutes: bed mobility training transfer training Gait Training 13 minutes: gait training with rolling walker Alarm Status Patient positioned in: Chair (08/24/23914) With: Pressure pad alarm intact and functioning and call soto in reach (08/24/23914) Following session patient seated OOB in chair with chair alarm activated. Chair alarm (did not havecord to plug into call soto system and/or room did not have port to plug cord into call soto system). Patient Education Review of Precautions: Safety;Fall;Total Hip (08/24/23914) Review of Exercises: Pt Demonstrated Exercise (08/24/23914) Safety Awareness: Patient verbalizes insight of current deficits;Patient can communicate basic needs;Patient demonstrates carryover of insight during functional tasks (08/24/23914) Preferred learning method: Combination (08/24/23914) Barriers to learning: None (08/24/23914) Method of Education: Verbalized to patient (08/24/23914) Assessment: Pt was supine in bed prior to therapy arrival. She was Maximal assistance from 2 for bed mobility due to discomfort from bilateral lower extremity and core weakness. She sat at edge of bed for several minutes to improve postural awareness. Pt stood from Edge of bed with Rolling walkers and Minimal assistance from 2. She ambulated 4 ft to bedside chair requiring assistance from 1. Pt appears to be showing improvement from initial evaluation. Pt aware of all hip precautions and able to implement restrictions with activities. [facility], outpatient therapy or inpatient rehabilitation. The level of care will be determined in collaboration with patient, family/caregiver and care team members. Deficits requiring P.T. treatment needs: Safety;Mobility;Balance;Range of motion (08/24/23914) Equipment needs: Rolling walker (08/22/23 4215) Plan: Continue with current treatment plan established on evaluation. AM PAC Score with Stairs: 12. A portion of this AM-PAC assessment not scored based on functional assessment; rather clinical decision making utilized based on current findings and/or prior level of function. Please refer to future AM- PAC calculations of functional ability as they become available. * Ancillary Progress Note - Nellie Bernabe PTA - 08/23/2023 2:10 PM EDT PROGRESS NOTE - Physical Therapy [address] [address] Name: Elsa Reyes [address] Date: 08/23/2023 Time: 2:10 PM Patient seen for afternoon physical therapy session. Patient was able to recall all precautions andmaintained them throughout therapy. Patient performed therapeutic exercises to increase strength and maintain joint integrity. Active assistance intermittently required. Patient declined further mobility due to pain and fatigue. Please see flow sheet for further details. * Diagnostic Clarification - Lesli Bates MD - 08/23/2023 1:51 PM EDT The patient has been diagnosed with postoperative hypovolemic shock. * Ancillary Progress Note - Brielle Gil COTA/L - 08/23/2023 12:14 PM EDT PROGRESS NOTE - Occupational Therapy [address] [address] Name: Elsa Reyes Location: [facility]/A Date: 08/23/2023 Time: 12:14 PM Elsa Reyes is a 68 year old female. Patient Status: Inpatient Insurance: Payor: [facility] [employer] Plan: [facility] [employer] COMPLETE RX MH-GD Product Type: *No Product type* Patient Seen: at bedside, nursing cleared patient for therapy Patient Identified By: Name, ID Band and Date Diagnosis: B/L MERVAT (08/23/23905) Status of treatment: Treatment completed (08/23/23905) Orders: OT evaluation and treatment (08/23/23905) Weight Bearing Status: Weight bearing as tolerated (08/23/23905) Precautions: Alarms;Falls;Safety;Total hip (anterior, posterior, abduction) (08/23/23905) Total Treatment Time: 40 (08/23/23905) Subjective: patient agreeable to OT session Pain: Patient has complaints of pain. Pain located B/L hips when weight bearing. Did not rate. Reports better than yesterday Observations Consciousness: Alert (08/23/23905) Orientation: Oriented times 4 (08/23/23905) Psychosocial: Patient can communicate basic needs (08/23/23905) Sitting posture: Forward head;Rounded shoulders (08/23/23905) Standing posture: Forward head;Rounded shoulders (08/23/23905) Safety awareness: The Patient verbalizes insight of current deficits.;Needs cueing supervision. (08/23/23905) Other Findings Endurance: Sitting tolerance;Fair;Standing tolerance;Functional activity;Poor (08/19/23909) Light touch sensation: Intact (08/18/231001) Proprioception: Intact (08/18/231001) Coordination: Intact (08/18/231001) Tone: Normal tone (08/18/231001) Edema: Edema noted (08/18/231001) Extremity: RUE (08/18/231001) Current Functional Status: Activities of Daily Living: Self Care Grooming: Supervision (Please comment) (08/23/23905) Toileting: Dependent (08/23/23905) Dressing Lower Body: Minimal Assistance (08/23/23905) Functional Ambulation Assistive Device: Rolling walker (08/23/23905) Distance in feet:: 3 (08/23/23905) Level of Assistance: Minimal Assistance (08/23/23905) Bed Mobility Roll (Right): Maximal Assistance (08/20/23904) Roll (Left): Maximal Assistance (08/20/23904) Supine-Sit: Maximal Assistance (x2) (08/23/23905) Sit-Supine: Maximal Assistance (08/20/23904) Sit - Sidelying: Maximal Assistance (x2) (08/20/23904) OT Transfers Sit-Stand: Minimal Assistance (x2) (08/23/23905) Stand-Sit: Minimal Assistance (08/23/23905) Bed-Chair: Minimal Assistance (x2) (08/23/23905) Toilet: Minimal Assistance (x2) (08/23/23905) Balance Sit (Static): Fair (08/23/23905) Sit (Dynamic): (poor+) (08/23/23905) Stand (Static): (poor to poor+) (08/23/23905) Stand (Dynamic): (poor to poor+) (08/23/23905) Patient Education Education Topic: Role of OT;Plan of care goals (08/23/23905) Review of Precautions: Safety;Fall;Total Hip (08/23/23905) Review of Exercises: Pt Demonstrated Exercise;Verbal Exercises Provided (08/23/23905) Method of Education: Verbalized to patient (08/23/23905) Education Provided to: Patient (08/23/23905) Response to Education: Receptive and agreeable to education;Needs further education (08/23/23905) Barriers to learning: Medical status (08/23/23905) Preferred learning method: Combination (08/23/23905) Alarm Status Patient positioned in: Chair (08/23/23905) With: Pressure pad alarm intact and functioning and call soto in reach (cord plugged into wall) (08/23/23905) Treatment Provided: Self Mcc Management Trainin minutes Therapeutic Procedure: 10 minutes Upper Extremity exercise Demonstrate Exercises: LUE;RUE;Shoulder;Elbow;2 sets of 10;Flexion;Extension;Scapular protraction/retraction;Supination/pronation (08/23/23905) Peformed in: Seated (08/23/23905) Deficits requiring O.T. treatment needs: ADL/self- care;Balance;Endurance;Functional mobility;Safety;Upper extremity strength;Weakness (08/19/23909) Assessment: patient supine in bed upon entering room. Reviewed and educated on THP. Able to recall 3/4. Max assistance of two supine to sit. Patient required some assistance today to maintain sittingbalance on the edge of bed. Minimal assistance to chet socks with sock aid. Minimal assistance of two for functional transfer from bed and bedside commode. Minimal assistance of two for functional mobility from bed to bedside commode with rolling walker. Performed UE strength and endurance exercises in all available plans. Dependent for hygiene. Please consider post-acute care services which may include home health, fci, outpatient therapy or inpatient rehabilitation. The level of care will be determined in collaboration with patient, family/caregiver and care team members. Would benefit from continued OT to maximize functional capabilities.Would benefit from continued OT to maximize functional capabilities. Plan: Continue to follow as per plan. Anticipated Frequency (on eval): Daily (08/23/23905) Equipment Equipment used in Therapy: Bedside commode;Rolling walker;Sock aid (08/23/23905) Equipment Needs Equipment needs: Rolling walker (08/23/23905) AM-PAC Help From Another Person Eating Meals: A little (08/23/23905) Help From Another Person Taking Care of Personal Grooming: A little (08/23/23905) Help From Another Person To Put On/Take Off Upper Body Clothing: A little (08/19/23909) Help From Another Person To Put On/Take Off Lower Body Clothing: A little (08/23/23905) Help From Another Person Toileting: Total (08/23/23905) Help From Another Person Bathing: A lot (08/19/23909) OT AM-PAC Score: 13 (08/19/23909) OT AM-PAC t-Scale Score: 32.03 (08/19/23909) HLM (Highest Level of Mobility) Goal: Level 4 move to chair/commode (08/23/23934) A portion of this AM-PAC assessment not scored based on functional assessment ; rather clinical decision making utilized based on current findings and/or prior level of function. Please refer to future AM-PAC calculations of functional ability as they become available. * Ancillary Progress Note - Roman Martinez RN - 08/23/2023 9:35 AM EDT CARE MANAGEMENT - ADULT TRANSITION NOTE [facility] [address] Name: Elsa Reyes Location: [facility] H777/A Date: 08/23/2023 Time: 9:35 AM Risk Stratification Risk Stratification Psycho Social / Medical Concerns Identified: Adjustment to illness/injury (08/20/23 100) Accessed [employer] to connect patients to social care resources: No (08/20/23 100) OBRA or OPTIONS needed for placement: No (08/20/23 100) Readmission Risk Score: 18.42 (08/23/23 0801) AM-PAC Score With Stairs : 11 (08/22/23 1423) Caregiver Information Patient Contacts Name Relation Home Work Mobile Harry Reyes Spouse [phone] Funmilayo Reyes Adult Child [phone] Transition of Care Checklist Transition of Care Checklist (aka Readmission Risk Score) Discharge Disposition: Post-Acute (08/21/231126) Post Acute: Moderate (12-17%) (08/21/231126) Narrative: KISHA has been following Elsa's hospital course. Patient discussed in IDT rounds She is medically stable to transition to rehab. CM spoke to Jaja at [facility] this morning. She stated they will not have an available bed til maybe Sunday. CM met with Elsa with [facility] list. She was reluctant to make other choices. CM offered to make blanket referrals to all facilities on list, as well as [facility], to find out who has available beds for her to choose from. Her is going to be here later today. Discharge plan evolving - CM will continue to follow for discharge needs. 1310: Bed offer from [facility]. CM spoke to patient who accepted bed. CM submitted for P auth through [employer]. Anticipated Transportation at Discharge: BLS Patient/Family Expectations: rehab Transition Planning Transition Planning Transition Plan/Considerations: Needs identified - Discharge planning services explained to patientfamily / caregiver - Choices offered (08/21/231126) Transition services explained and patient/family/caregiver agreeable: Half-Way (08/21/231126) Transition planning services explained and patient/family/caregiver agreeable: List of SNFs by [facility] that participate in Medicare programs provided and reviewed with patient and caregiver (08/21/231126) CMS Quality Rating provided to patient: Yes (08/21/231126) Repisodic Choice provided to patient: Yes (08/21/231126) Transition plan discussed with - Enter name and phone #: Elsa (08/21/231126) Insurance Considerations: Precertification needed for Post-Acute Care (08/21/231126) Referral to Community Agency : N/A (08/21/231126) Post-Acute Care needs identified and Referrals Completed: N/A (08/21/231126) Additional Considerations: n/a Care Management will continue to monitor and assist with discharge planning needs * Ancillary Progress Note - Nellie Bernabe PTA - 08/23/2023 9:35 AM EDT PROGRESS NOTE - Physical Therapy [facility] [address] Name: Elsa Reyes Location: [facility] H777/A Date: 08/23/2023 Time: 09:35 AM Elsa Reyes is a/an 68 year old female. Patient Status: Inpatient Insurance: Payor: [facility] Plan: [facility] CLASSIC COMPLETE RX MH-GD Product Type: *No Product type* Patient Seen: at bedside, nursing cleared patient for therapy Patient Identified By: Name, ID Band and Date Diagnosis: OA B hips (08/23/23934) Status of treatment: Treatment completed (08/23/23934) Orders: PT evaluation and treatment (08/23/23934) Weight Bearing Status: Weight bearing as tolerated (08/23/23934) Precautions: Alarms;Falls;Total hip (anterior/posterior, no abduction) (08/23/23934) Total Treatment Time--free text: 29 (08/23/23934) Subjective: patient agreeable Pain: Patient has complaints of pain. Pain located bilateral hips. Did not rate, RN aware P.T. Bed Mobility Supine-Sit: Maximal Assistance (x2) (08/23/23934) Transfers Sit-Stand: Minimal Assistance (08/23/23934) Stand-Sit: Minimal Assistance (08/23/23934) W/C-Bed/Mat: Minimal Assistance (x2; stand pivot) (08/23/23934) Ambulation: Distance ambulated (feet): 3 Assistive Device: Rolling walker Assist: Minimal Assistance Balance Sit (Static): Fair (08/23/23934) Sit (Dynamic): Poor (+) (08/23/23934) Stand (Static): Poor (+) (08/23/23934) Stand (Dynamic): Poor (+) (08/23/23934) Patient and or Family Goal(s): to get well Topic of Education: Safety with mobility Method of Education: Verbal discussion and explanation provided to patient: verbalized understanding and or agreement of this information Treatment Provided: Therapeutic Activities 15 minutes: bed mobility training transfer training Gait Training 14 minutes: gait training with rolling walker Alarm Status Patient positioned in: Chair (08/23/23934) With: Personal alarm intact and functioning with call soto in reach (08/23/23934) Following session patient seated OOB in chair with chair alarm activated and cord plugged into callbell system. Patient Education Review of Precautions: Safety;Fall;Total Hip (08/23/23934) Review of Exercises: Pt Demonstrated Exercise;Verbal Exercises Provided (08/19/23 1430) Safety Awareness: Patient verbalizes insight of current deficits;Patient can communicate basic needs;Patient demonstrates carryover of insight during functional tasks (08/23/23934) Assessment: Upon arrival patient supine in bed. Patient was reeducated on hip precautions and maintained them throughout session. Patient performed a supine to sit transfer requiring maximal assistance x2 and verbal cuing. Patient performed a sit to stand/stand to sit transfer x3 from various heights requiring minimal assistance and verbal cuing for proper hand placement. Patient performed a stand pivot transfer x2 requiring minimal assistance x2 for safety. Patient required a seated rest breakdue to fatigue. Patient ambulated 3 feet with the use of a rolling walker, chair follow, and minimal assistance. Patient had some complaints of pain while weight bearing. Patient was left sitting in c hair with ESPARZA. Please consider post-acute care services which may include home health, fci, outpatienttherapy or inpatient rehabilitation. The level of care will be determined in collaboration with patient, family/caregiver and care team members. Deficits requiring P.T. treatment needs: Safety;Mobility;Balance;Range of motion (08/23/23 0908) Plan: Continue with current treatment plan established on evaluation. AM PAC Score with Stairs: 14 A portion of this AM-PAC assessment not scored based on functional assessment ; rather clinical decision making utilized based on current findings and/or prior level of function. Please refer to future AM-PAC calculations of functional ability as they become available. * Ancillary Progress Note - Megan Mei PTA - 08/22/2023 2:24 PM EDT Physical Therapy Progress Note Elsa Reyes [facility] H777/A [id number] 08/22/2023 Pt seen this PM for functional mobility training. Pt ambulated 2'x2 using a rolling walker requiring minimal assist. Pt presents with shuffling gait. She required minimal assist x1 to stand from the recliner and minimal assist x2 to stand from the bedside commode. Pt was returned to supine requiring maximal assist x2. Hip precautions maintained throughout session. See IP PT flowsheet for details.Thank you * Ancillary Progress Note - Brielle Gil COTA/L - 08/22/2023 10:58 AM EDT PROGRESS NOTE - Occupational Therapy [facility] [address] Name: Elsa Reyes Location: [facility] H777/A Date: 08/22/2023 Time: 10:58 AM lEsa Reyes is a 68 year old female. Patient Status: Inpatient Insurance: Payor: [facility] Plan: [facility] CLASSIC COMPLETE RX MH-GD Product Type: *No Product type* Patient Seen: at bedside, nursing cleared patient for therapy Patient Identified By: Name, ID Band and Date Diagnosis: B/L MERVAT (08/22/23819) Status of treatment: Treatment completed (08/22/23819) Orders: OT evaluation and treatment (08/22/23819) Weight Bearing Status: Weight bearing as tolerated (08/22/23819) Precautions: Alarms;Falls;Safety;Total hip (08/22/23819) Total Treatment Time: 38 (08/22/23819) Subjective: patient agreeable to OT session Pain: Patient has complaints of pain. Pain located when weight bearing. Did not rate Observations Consciousness: Alert (08/22/23819) Orientation: Oriented times 4 (08/22/23819) Psychosocial: Patient can communicate basic needs (08/22/23819) Sitting posture: Forward head;Rounded shoulders (08/22/23819) Standing posture: Forward head;Rounded shoulders (08/22/23819) Safety awareness: The Patient verbalizes insight of current deficits.;Needs cueing supervision. (08/22/23819) Other Findings Endurance: Sitting tolerance;Fair;Standing tolerance;Functional activity;Poor (08/19/23909) Light touch sensation: Intact (08/18/23 1002) Proprioception: Intact (08/18/231001) Coordination: Intact (08/18/23 1002) Tone: Normal tone (08/18/23 1002) Edema: Edema noted (08/18/231001) Extremity: RUE (08/18/231001) Current Functional Status: Activities of Daily Living: Self Care Toileting: Dependent (08/22/23819) Bed Mobility Supine-Sit: Maximal Assistance (x2) (08/22/23819) OT Transfers Sit-Stand: Minimal Assistance (bed and recliner) (08/22/23819) Stand-Sit: Minimal Assistance (08/22/23819) Bed-Chair: Minimal Assistance (x2 furniture swap, bed to bedside commode to recliner) (08/22/23819) Toilet: Minimal Assistance (x2) (08/22/23819) Balance Sit (Static): Fair (08/22/23819) Sit (Dynamic): (fair-) (08/22/23819) Stand (Static): (poor+ to poor) (08/22/23819) Stand (Dynamic): Poor (able to take two steps today) (08/22/23819) Patient Education Education Topic: Role of OT;Plan of care goals (08/22/23819) Review of Precautions: Safety;Fall;Total Hip (08/22/23819) Review of Exercises: Pt Demonstrated Exercise;Verbal Exercises Provided (08/22/23819) Method of Education: Verbalized to patient (08/22/23819) Education Provided to: Patient (08/22/23819) Response to Education: Receptive and agreeable to education;Needs further education (08/22/23819) Barriers to learning: Medical status (08/22/23819) Preferred learning method: Combination (08/22/23819) Alarm Status Patient positioned in: Chair (08/22/23819) With: Pressure pad alarm intact and functioning and call soto in reach (08/22/23819) Treatment Provided: Self [facility] Management Trainin minutes Therapeutic Activity: 8 minutes Therapeutic Procedure: 15 minutes Upper Extremity exercise Demonstrate Exercises: LUE;RUE;Shoulder;Elbow;2 sets of 10;Flexion;Extension;Scapular protraction/retraction;Supination/pronation (08/22/23819) Peformed in: Seated (08/22/23819) Deficits requiring O.T. treatment needs: ADL/self- care;Balance;Endurance;Functional mobility;Safety;Upper extremity strength;Weakness (08/19/23909) Assessment: patient supine in bed upon entering room. Reviewed and educated on THP. Able to recall 3/4. Max assistance of two supine to sit. Patient required less assistance to day to maintain sitting balance on the edge of bed. Minimal assistance for functional transfer from bed and recliner, minimal assistance of two for functional transfer from bedside commode. Furniture swap to place bedside commode and recliner behind patient. Patient able to take a step or two today. Dependent for toilet hygiene. Performed UE strength and endurance exercises in all available plans. Please consider post-acute care services which may include home health, fci, outpatient therapy or inpatient r ehabilitation. The level of care will be determined in collaboration with patient, family/caregiverand care team members. Would benefit from continued OT to maximize functional capabilities. Plan: Continue to follow as per plan. Anticipated Frequency (on eval): Daily (08/22/23819) Equipment Equipment used in Therapy: Bedside commode;Rolling walker (08/22/23819) Equipment Needs Equipment needs: Rolling walker (08/22/23819) AM-PAC Help From Another Person Eating Meals: A little (08/22/23819) Help From Another Person Taking Care of Personal Grooming: A little (08/21/23909) Help From Another Person To Put On/Take Off Upper Body Clothing: A little (08/19/23909) Help From Another Person To Put On/Take Off Lower Body Clothing: A lot (08/21/23909) Help From Another Person Toileting: Total (08/22/23819) Help From Another Person Bathing: A lot (08/19/23909) OT AM-PAC Score: 13 (08/19/23909) OT AM-PAC t-Scale Score: 32.03 (08/19/23909) HLM (Highest Level of Mobility) Goal: Level 3 sit at edge of bed (08/22/23900) A portion of this AM-PAC assessment not scored based on functional assessment ; rather clinical decision making utilized based on current findings and/or prior level of function. Please refer to future AM-PAC calculations of functional ability as they become available. * Ancillary Progress Note - Roman Martinez RN - 08/22/2023 9:33 AM EDT CARE MANAGEMENT - ADULT TRANSITION NOTE [facility] [address] Name: Elsa Reyes Location: [facility] H777/A Date: 08/22/2023 Time: 9:33 AM Risk Stratification Risk Stratification Psycho Social / Medical Concerns Identified: Adjustment to illness/injury (08/20/231007) Accessed [facility] to connect patients to social care resources: No (08/20/231007) OBRA or OPTIONS needed for placement: No (08/20/231007) Readmission Risk Score: 18.53 (08/22/23800) AM-PAC Score With Stairs : 7 (08/22/23799) Caregiver Information Patient Contacts Name Relation Home Work Harry Canseco Spouse [phone] Funmilayo Reyes Adult Child [phone] Transition of Care Checklist Transition of Care Checklist (aka Readmission Risk Score) Discharge Disposition: Post-Acute (08/21/23 1127) Post Acute: Moderate (12-17%) (08/21/23 1127) Narrative: CM has been following Elsa's hospital course. Patient discussed in IDT rounds. CM made SNF referrals yesterday. CM called facilities to see if they can offer bed: 1. [facility] - left VM 2. [facility] - left VM for Diamond 3. [facility] - left VM for Janiya, ext [phone]: CM spoke to Nena at [facility]. She stated that she will not have a female bed til Sunday. CM spoke to Janiya at [facility]. She is reviewing patient and will call me within an hour. 1205: Janiya called requesting additional information. All questions answered. 1245: CM noted that [facility] declined in [place]. 1400: CM noted that [facility] accepted patient in [place]. CM left VM for Diamond, admission's director. 1415: CM placed ride request in Roundtrip. Rdie picked up by [facility]. 1430: CM not able to reach [place]. CM called facility - Diamond is on vacation. CM spoke to [facility] - they were potentially having a discharge tomorrow, but patient's family does not feel they are readyto go home. CM will reach out to [facility] - maybe can still use same ride, but switch destination location. 1445: CM has left multiple VM for Jaja from [facility] throughout the day. CM spoke to facility featheredge machine operator - she left the building a few minutes ago and will be back in approx 1/2 hour. CM leftadditional VM. Ride cancelled in Roundtrip Discharge plan evolving - CM will continue to follow for discharge needs. Anticipated Transportation at Discharge: BLS - b/l hip replacements Patient/Family Expectations: SNF rehab Transition Planning Transition Planning Transition Plan/Considerations: Needs identified - Discharge planning services explained to patientfamily / caregiver - Choices offered (08/21/231126) Transition services explained and patient/family/caregiver agreeable: [facility] (08/21/231126) Transition planning services explained and patient/family/caregiver agreeable: List of SNFs by [facility] that participate in Medicare programs provided and reviewed with patient and caregiver (08/21/231126) CMS Quality Rating provided to patient: Yes (08/21/231126) Repisodic Choice provided to patient: Yes (08/21/231126) Transition plan discussed with - Enter name and phone #: Elsa (08/21/231126) Insurance Considerations: Precertification needed for Post-Acute Care (08/21/231126) Referral to Community Agency : N/A (08/21/231126) Post-Acute Care needs identified and Referrals Completed: N/A (08/21/231126) Additional Considerations: n/a Care Management will continue to monitor and assist with discharge planning needs * Ancillary Progress Note - Megan Mei PTA - 08/22/2023 9:01 AM EDT PROGRESS NOTE - Physical Therapy [address] [address] Name: Elsa Reyes Location: [facility] H777/A Date: 08/22/2023 Time: 09:01 AM Elsa Reyse is a/an 68 year old female. Patient Status: Inpatient Insurance: Payor: [facility] Plan: [facility] CLASSIC COMPLETE RX MH-GD Product Type: *No Product type* Patient Identified By: Name, ID Band and Date Diagnosis: OA B hips (08/22/23900) Status of treatment: Treatment completed (08/22/23900) Orders: PT evaluation and treatment (08/22/23900) Weight Bearing Status: Weight bearing as tolerated (08/22/23900) Precautions: Alarms;Falls;Total hip (anterior/posterior, no abduction) (08/22/23900) Total Treatment Time--free text: 38 (08/22/23900) Treatment Provided: Therapeutic Activities 23 minutes: bed mobility training transfer training review of THR precautions Standing tolerance Therapeutic Exercises: 15 minutes Pain: Patient has complaints of pain. Pain located bilateral hips. P.T. Bed Mobility Supine-Sit: Maximal Assistance (x2) (08/22/23900) Transfers Sit-Stand: Minimal Assistance (x1-2 for 3 transfers) (08/22/23900) Stand-Sit: Minimal Assistance (for 3 transfers) (08/22/23900) W/C-Bed/Mat: Minimal Assistance (furniture swap from bed to bedside commode then bedside commode torecliner) (08/22/23900) Ambulation: Distance ambulated (feet): 1 Assistive Device: Rolling walker Assist: Minimal Assistance x2 Noted gait deviations: difficulty advancing BLE (08/22/23900) Balance Sit (Static): Fair (08/22/23900) Sit (Dynamic): Fair (08/22/23900) Stand (Static): (poor +) (08/22/23900) Stand (Dynamic): Poor (08/22/23900) Extremity Exercise Supine: Hip;Knee;Isometrics (08/22/23900) Hip : Bilateral LE;Flexion;2 sets of 10 (active assistive) (08/22/23900) Knee : Bilateral LE;Heel slide;2 sets of 10 (active assist) (08/22/23900) Isometrics: Bilateral LE;Glute sets;Quad sets;2 sets of 10 (08/22/23900) Topic of Education: Safety with mobility, Goals/plan of care, Use of assistive device, Fall prevention, and total hip precautions Method of Education: Verbal discussion and explanation provided to pt: Alarm Status Patient positioned in: Chair (08/22/23900) With: Pressure pad alarm intact and functioning and call soto in reach (08/22/23900) Following session patient seated OOB in chair with chair alarm activated and cord plugged into callbell system. Patient Education Review of Precautions: Safety;Fall (08/22/23900) Review of Exercises: Pt Demonstrated Exercise;Verbal Exercises Provided (08/19/23 1430) Safety Awareness: Patient verbalizes insight of current deficits;Patient demonstrates carryover of insight during functional tasks;Patient can communicate basic needs;Needs cueing supervision (08/22/23900) Assessment: Pt required maximal assist x2 for bed mobility. Once seated edge of bed she was able tosupport herself with supervision (improvement from yesterday). She required minimal assist x1 for the 1st stand (from the bed) and minimal assist x2 for 2nd (from bedside commode) and minimal assist x1 for 3rd stand from the chair. Two furniture swaps were done from bed to bedside commode then commode to recliner using a rolling walker. Pt required minimal assist to maintain balance during them. From the chair she was able to stand statically to a walker and picker operator one foot at a time requiringminimal assist x2. She was able to ambulate 1' using a rolling walker requiring minimal assist x2. Pt fatigues quickly. Supine active assistive exercises were done to increase LE strength. Pt was able to recall 3/4 hip precautions. Education provided and they were maintained throughout mobility. Please consider post-acute care services which may include home health, fci, outpatient therapy or inpatient rehabilitation. The level of care will be determined in collaboration with patient, family/caregiver and care team members. Deficits requiring P.T. treatment needs: Safety;Mobility;Balance;Weakness;Endurance;Range of motion;Lower extremity strength (08/22/23900) Equipment needs: Rolling walker (08/22/23900) Plan: Continue with current treatment plan established on evaluation. AM PAC Score with Stairs: 9 A portion of this AM-PAC assessment not scored based on functional assessment; rather clinical decision making utilized based on current findings and/or prior level of function. Please refer to future AM-PAC calculations of functional ability as they become available. * Progress Notes - Post-Op Global - Junior Chavez PA-C - 08/22/2023 8:25 AM EDT Orthopaedic Progress Note [facility] [address] Name: Elsa Reyes Location: [facility] H777/A Date: 08/22/2023 Time: 8:27 AM 24 hour events/Subjective: Eating when I came to visit again but not eating a lote. Worked with P and able to stand but not take a step. Having pain. Discussed to take pain medicine before PT comes. Objective: BP: 113 mmHg/67 mmHg (08/22/23399) Pulse: 98 (08/22/23399) Resp: 16 (08/22/23799) Temp: 36.72 C (08/22/23799) Temp Summary: Temp Min: 36.5 C (97.7 F) Max: 36.9 C (98.4 F) SpO2: 96 % (08/22/23799) O2 flow rate: 2 L/MIN (08/20/23399) Supplemental O2 Delivery: Room Air, None (08/22/23799) CONSTITUTIONAL State of health: well Level of consciousness: alert Distress: none MUSCULOSKELETAL RLE: - Aquacel dressing intact, large shadowing under dressing 3 cm by 7 cm, no drainage outside aquacel- no change from yesterday -DP palpable, toes warm and well-perfused LLE: -large dressing intact, 2 x 1 cm shadowing under dressing - dorsiflexion/plantar flexion, EHL/FHL -DP palpable, toes warm and well-perfused Imaging: PO AP pelvis reviewed Assessment/Plan: Ms. Reyes is a/an 68 year old female s/p bilateral total hip replacement, lateral approach by Dr. Cochran on OR date: 08/17/2023. - Tylenol 975 mg PO Q6H, Oxycodone 5-10 mg PO Q4H PRN moderate to severe pain, Dilaudid 0.5 mg IV Q2H PRN breakthrough pain - Lower Right Extremity: weight bearing as tolerated - Lower Left Extremity: weight bearing as tolerated - OOB with assist, hip precautions anterior, posterior, abduction hip precautions , abduction pillow - P.T./O.T. - keep dressing in place, reinforce dressing PRN - F/U as outpatient in 3.5 weeks closed with olinda - regular diet, periop antibiotics complete, A-V impulse boots, ASA - Higher risk with comorbidities: PO doxycycline daily. Discharge 6 weeks of doxycyline. - Care management: planning SNF. Discussed reaching out to care management for updates. Disposition: pending Provisional care provided and general supervision by Dr. Cochran * Progress Notes - Post-Op Global - Junior Chavez PA-C - 08/21/2023 3:20 PM EDT Brief progress note: Per request by Medicine, called and left a message for to answer questions about discharge and follow up. Left a call back number at [phone]. Addendum: called again and spoke to Elsa. He wanted to know approximate timeline of discharge. Explained Care management is working on getting a SNF approved which can take 1-2 days depending on insurance and bed availability. He could speak to care management for more information. He wanted to know if she would be transferred from ICU to a different floor. Discussed she likely would but is dependent on bed availability and would be transfer under medicine but we would be following. Reviewed he had a follow up appointment on September 11. No other questions. Junior Chavez, PAC * Ancillary Progress Note - Brielle Gil COTA/L - 08/21/2023 3:01 PM EDT PROGRESS NOTE - Occupational Therapy [facility] [address] Name: Elsa Reyes Location: [facility] H777/A Date: 08/21/2023 Time: 3:01 PM Elsa Reyes is a 68 year old female. Patient Status: Inpatient Insurance: Payor: [facility] Plan: [facility] CLASSIC COMPLETE RX MH-GD Product Type: *No Product type* Patient Seen: at bedside, nursing cleared patient for therapy Patient Identified By: Name, ID Band and Date Diagnosis: B/L MERVAT (08/21/23 1421) Status of treatment: Treatment completed (08/21/23909) Orders: OT evaluation and treatment (08/21/23909) Weight Bearing Status: Weight bearing as tolerated (08/21/23909) Precautions: Alarms;Falls;Safety;Total hip (08/21/23909) Total Treatment Time: 38 (08/21/23909) Subjective: patient agreeable to OT session Pain: Patient has complaints of pain. Pain located B/L hips especially when weight bearing. Did notrate Observations Consciousness: Alert (08/21/23909) Orientation: Oriented times 4 (08/21/23909) Psychosocial: Patient can communicate basic needs (08/21/23909) Sitting posture: Forward head;Rounded shoulders (08/21/23909) Standing posture: Forward head;Rounded shoulders (08/21/23909) Safety awareness: The Patient verbalizes insight of current deficits.;Needs cueing supervision. (08/21/23909) Other Findings Endurance: Sitting tolerance;Fair;Standing tolerance;Functional activity;Poor (08/19/23909) Light touch sensation: Intact (08/18/231001) Proprioception: Intact (08/18/231001) Coordination: Intact (08/18/231001) Tone: Normal tone (08/18/231001) Edema: Edema noted (08/18/231001) Extremity: RUE (08/18/231001) Current Functional Status: Activities of Daily Living: Self Care Grooming: Supervision (Please comment) (08/21/23909) Dressing Lower Body: Moderate Assistance (08/21/23909) Bed Mobility Supine-Sit: Maximal Assistance (x2) (08/21/23909) OT Transfers Sit-Stand: Minimal Assistance (x2 from bed, min from chair) (08/21/23909) Stand-Sit: Minimal Assistance (x2) (08/21/23909) Bed-Chair: Minimal Assistance (x2 furniture swap) (08/21/23909) Balance Sit (Static): (fair to poor) (08/21/23909) Sit (Dynamic): (fair- to poor+) (08/21/23909) Stand (Static): (poor+ to poor) (08/21/23909) Stand (Dynamic): (unable to take steps secondary to pain) (08/20/23904) Patient Education Education Topic: Role of OT;Plan of care goals (08/21/23909) Review of Precautions: Safety;Fall;Total Hip (08/21/23909) Method of Education: Verbalized to patient (08/21/23909) Education Provided to: Patient (08/21/23909) Response to Education: Receptive and agreeable to education;Needs further education (08/21/23909) Barriers to learning: Medical status (08/21/23909) Preferred learning method: Combination (08/20/23904) Alarm Status Patient positioned in: Chair (08/21/23909) With: Pressure pad alarm intact and functioning and call soto in reach (08/21/23909) Treatment Provided: Self Mcc Management Trainin minutes Therapeutic Activity: 8 minutes Neuromuscular Re Education 10 minutes Deficits requiring O.T. treatment needs: ADL/self- care;Balance;Endurance;Functional mobility;Safety;Upper extremity strength;Weakness (08/19/23909) Assessment: patient supine in bed upon entering room. Reviewed and educated on THP. Patient able torecall 3/4. Max assistance of two for supine to sit. Patient required assistance to maintain sitting balance on the edge of bed. Moderate assistance to chet socks and to chet/doff pants using a stock clerk and sock aid. Minimal assistance for functional transfer from bed and recliner. Patient unable totake any steps this date secondary to pain. Patient was placed in recliner by swapping furniture. Please consider post-acute care services which may include home health, fci, outpatient therapy or inpatient rehabilitation. The level of care will be determined in collaboration with patient, family/caregiver and care team members. Would benefit from continued OT to maximize functional capabilities. Plan: Continue to follow as per plan. Anticipated Frequency (on eval): Daily (08/21/23909) Equipment Equipment used in Therapy: Rolling walker (08/21/23909) AM-PAC Help From Another Person Eating Meals: A little (08/21/23909) Help From Another Person Taking Care of Personal Grooming: A little (08/21/23909) Help From Another Person To Put On/Take Off Upper Body Clothing: A little (08/19/23909) Help From Another Person To Put On/Take Off Lower Body Clothing: A lot (08/21/23909) Help From Another Person Toileting: Total (08/19/23909) Help From Another Person Bathing: A lot (08/19/23909) OT AM-PAC Score: 13 (06/09/24 0910) OT AM-PAC t-Scale Score: 32.03 (08/19/23 0910) HLM (Highest Level of Mobility) Goal: Level 3 sit at edge of bed (08/21/23 1421) A portion of this AM-PAC assessment not scored based on functional assessment ; rather clinical decision making utilized based on current findings and/or prior level of function. Please refer to future AM-PAC calculations of functional ability as they become available. * Ancillary Progress Note - Carla Brown RN - 08/21/2023 2:35 PM EDT CARE MANAGEMENT - ADULT TRANSITION NOTE [facility] [address] Name: Elsa Reyes Location: [facility] H777/ Date: 08/21/2023 Time: 2:36 PM Risk Stratification Risk Stratification Psycho Social / Medical Concerns Identified: Adjustment to illness/injury (08/20/23 1008) Accessed [employer] to connect patients to social care resources: No (08/20/23 1008) OBRA or OPTIONS needed for placement: No (08/20/23 1008) Readmission Risk Score: 16.1 (08/21/23 1200) AM-PAC Score With Stairs : 9 (08/21/23 1421) Caregiver Information Patient Contacts Name Relation Home Work Mobile Harry Reyes Spouse [phone] EricFunmilayo Adult Child [phone] Transition of Care Checklist Transition of Care Checklist (aka Readmission Risk Score) Discharge Disposition: Post-Acute (08/21/23 1127) Post Acute: Moderate (12-17%) (08/21/23 1127) Narrative: KISHA has been following Elsa's hospital course. Patient discussed in IDT rounds. They arenot medically stable for discharge at this time. Spoke with Elsa regarding rehab. She has declinedreferral to [facility]. She chose 3 SNFs for referrals #1. [facility], #2 [facility], # 3 [facility]. Referrals have been made to above facilities. Discharge plan evolving - CM will continue to follow for discharge needs. Anticipated Transportation at Discharge: WC van or BLS Patient/Family Expectations: Short-term rehab at SNF. Transition Planning Transition Planning Transition Plan/Considerations: Needs identified - Discharge planning services explained to patientfamily / caregiver - Choices offered (08/21/231126) Transition services explained and patient/family/caregiver agreeable: Half-Way (08/21/231126) Transition planning services explained and patient/family/caregiver agreeable: List of SNFs by [facility] that participate in Medicare programs provided and reviewed with patient and caregiver (08/21/231126) CMS Quality Rating provided to patient: Yes (08/21/231126) Repisodic Choice provided to patient: Yes (08/21/231126) Transition plan discussed with - Enter name and phone #: Elsa (08/21/231126) Insurance Considerations: Precertification needed for Post-Acute Care (08/21/231126) Referral to Community Agency : N/A (08/21/231126) Post-Acute Care needs identified and Referrals Completed: N/A (08/21/231126) Care Management will continue to monitor and assist with discharge planning needs * Ancillary Progress Note - Megan Mei PTA - 08/21/2023 2:23 PM EDT Physical Therapy Progress Note Elsa Hobson Eric [facility] H777/A [id number] 08/21/2023 Pt seen this PM for functional mobility training. Pt required minimal assist for sit to stand/standto sit. She tolerated standing to the walker for ~30 seconds to increase strength/balance and endurance. Pt unable to take steps at this time due to pain. Supine active assist exercises completed to increase LE strength. Pt was able to recall 3/4 hip precautions. Education provided and they were ramon ntained throughout mobility. See IP PT flowsheet for details. Thank you * Ancillary Progress Note - Carla Brown RN - 08/21/2023 11:33 AM EDT POST ACUTE CARE CARE MANAGEMENT [address] [address] Name: Elsa Reyes Location: [facility] H777/A Date: 08/21/2023 Time: 11:34 AM Post-Acute Care Patient General Information Living Quarters: House (08/20/231007) How many stories is the dwelling?: Two Stories (08/20/231007) Number of steps to enter living quarters:: Ramp (08/20/231007) Location of bathroom(s): All floors or Single story dwelling (08/20/231007) Do you have serious difficulty walking or climbing stairs? (5 years old or older): Yes (08/17/232322) History of falling: No (08/21/23799) What was your living situation prior to admission/observation?: With Spouse;With Child (08/20/231007) Do you have any children, pets, or other dependents that you are currently caring for?: No (08/20/231007) AM-PAC Score With Stairs : 9 (08/21/23 0947) Post-Acute Care with AM-PAC < 17.99 Rehab diagnosis: Knee or hip joint replacement for patient greater than 85 years old (08/21/231129) Inpatient Rehab Facility (IRF) Guidelines (1-8): Requires face to face interaction with a rehabilitative physician at a minimum of 3 times per week;Requires access to a rehabilitative RN 02/10;Able toparticipate in intensive therapy program consisting of treatment at a minimum of 3 hours per day 5 days per week;Indicate therapy modalities;Able to participate in rehabilitative therapy program including realistic goals with predictable timeframes for completion of goals;Rehabilitation intensity and frequency makes the services impracticable to obtain in less intense setting;Requires coordination care conference at least 1 time/week;Frequent assessment of progression toward goals (08/21/231129) Therapy Modalities: Physical Therapy;Occupational Therapy (08/21/231129) Inpatient Rehab Facility (IRF) Guidelines (9-12): Assistance with resolution of issues impeding rehabilitative progress;Frequent re-assessment of established rehabilitative progress;Frequent monitoring and or revision of treatment plan;Established rehabilitative progress (08/21/231129) Half-Way Facility (SNF) Guidelines For Medical Approval (must select both): Care must be provided by an RN/BLOOD BANK ATTENDANT and cannot be managed at home;Care requires observation, monitoring and evaluation of effectiveness on a daily basis (08/21/231130) SNF guidelines for Rehab Approval (All selections required): Able to participate for at least 1 hour of therapy per day;One or more therapy modalities (PT/OT/ST) at least 5 times a week;Requries Training (select at least one);Services required only able to be provided in an inpatient setting;Requires intense care planning with realistic goals as identified by 1 of the following;Frequent re-assessment of established rehabilitative progress;Established rehabilitative progress;Frequent monitoring and or revision of treatment plan (08/21/231130) Therapy Modalities: Physical Therapy;Occupational Therapy (08/21/231130) Intense Care Plan Goals: Completion of home evaluation, assistance with home modifications;Assistance with application for community services;Coordination of multiple community services;Family medication and/or transfer training (08/21/231130) SNF Required Training: Gait training;Transfer Training;ADL training, with or without adaptive equipment (08/21/231130) Approved for Half-Way Rehab: Approved for Half-Way Rehab (08/21/231130) Meets criteria for Inpatient Rehab Facility (IRF): Patient meets criteria for IRF (08/21/231129) CM discussed IRF and SNF options with Elsa. Elsa is worried that IRF would be too much therapy for her per day and she wishes to go at a slower pace. Repisodic list provided to her of SNF. CM will follow up on choices. * Ancillary Progress Note - Megan Mei PTA - 08/21/2023 10:09 AM EDT PROGRESS NOTE - Physical Therapy [facility] [address] Name: Elsa Reyes Location: [facility] H777/A Date: 08/21/2023 Time: 10:09 AM Elsa Reyes is a/an 68 year old female. Patient Status: Inpatient Insurance: Payor: [facility] Plan: [facility] CLASSIC COMPLETE RX MH-GD Product Type: *No Product type* Patient Identified By: Name, ID Band and Date Diagnosis: OA B hips (08/21/23946) Status of treatment: Treatment completed (08/21/23946) Orders: PT evaluation and treatment (08/21/23946) Weight Bearing Status: Weight bearing as tolerated (08/21/23946) Precautions: Alarms;Falls;Total hip (anterior/posterior, no abduction) (08/21/23946) Total Treatment Time--free text: 38 (08/21/23946) Treatment Provided: Therapeutic Activities 23 minutes: bed mobility training transfer training review of THR precautions Sitting tolerance, standing tolerance Therapeutic Exercises: 15 minutes Pain: Patient has complaints of pain. Pain located bilateral hips, pain medication provided prior to session, ice packs provided post mobility. P.T. Bed Mobility Supine-Sit: Maximal Assistance (x2) (08/21/23946) Transfers Sit-Stand: Minimal Assistance (for 3 transfers) (08/21/23946) Stand-Sit: Minimal Assistance (for 3 transfers) (08/21/23946) W/C-Bed/Mat: Minimal Assistance (furniture swap to chair using a rolling walker) (08/21/23946) Balance Sit (Static): (poor to fair) (08/21/23946) Sit (Dynamic): (poor + to fair -) (08/21/23946) Stand (Static): (poor +) (08/21/23946) Extremity Exercise Supine: Knee;Isometrics (08/21/23946) Knee : Bilateral LE;Heel slide;2 sets of 10 (08/21/23946) Ankle: Bilateral LE (08/21/23946) Isometrics: Bilateral LE;Glute sets;Quad sets;2 sets of 10 (08/21/23946) Topic of Education: Safety with mobility, Goals/plan of care, Use of assistive device, Fall prevention, and total hip precautions Method of Education: Verbal discussion and explanation provided to pt: Alarm Status Patient positioned in: Chair (08/21/23946) With: Pressure pad alarm intact and functioning and call soto in reach (08/21/23946) Following session patient seated OOB in chair with chair alarm activated and cord plugged into callbell system. Patient Education Review of Precautions: Total Hip;Fall (08/21/23946) Safety Awareness: Patient verbalizes insight of current deficits;Patient demonstrates carryover of insight during functional tasks;Patient can communicate basic needs;Needs cueing supervision (08/21/23946) Assessment: Pt required maximal assist x2 for supine to sit. Once seated edge of bed she required moderate (at worst) to supervision (at best) for balance/trunk control. She required minimal assist for sit to stand/stand to sit for 3 transfers (twice from the bed, once from the chair). Each stand was maintained for ~30-40 seconds to a rolling walker requiring minimal assist to maintain balance. Pt unable to take steps at this time due to pain. On the 2nd stand a furniture swap was done to transfers to the chair. Pt was able to recall 3/4 hip precautions. Education provided and they were maintained throughout mobility. Please consider post-acute care services which may include home health, fci, outpatient therapy or inpatient rehabilitation. The level of care will be determinedin collaboration with patient, family/caregiver and care team members. Deficits requiring P.T. treatment needs: Safety;Mobility;Balance;Weakness;Endurance;Range of motion;Lower extremity strength (08/21/23946) Equipment needs: Rolling walker (08/21/23946) Plan: Continue with current treatment plan established on evaluation. AM PAC Score with Stairs: 9 A portion of this AM-PAC assessment not scored based on functional assessment; rather clinical decision making utilized based on current findings and/or prior level of function. Please refer to future AM-PAC calculations of functional ability as they become available. * Progress Notes - Post-Op [employer] - Junior Chavez PA-C - 08/21/2023 7:55 AM EDT Orthopaedic Progress Note [address] [place] [address] Name: Elsa Reyes Location: [facility]/A Date: 08/21/2023 Time: 7:59 AM 24 hour events/Subjective: Eating when I came to visit. Working with PT. Trying to get up out of bed and transfer. Taking mostly tylenol for pain medicine. Occasional oxycodone. Urinating okay. No BM> Objective: BP: 113 mmHg/82 mmHg (08/21/23399) Pulse: 92 (08/21/23399) Resp: 17 (08/21/23399) Temp: 37.11 C (08/21/23399) Temp Summary: Temp Min: 36.1 C (97 F) Max: 37.1 C (98.8 F) SpO2: 93 % (08/21/23399) O2 flow rate: 2 L/MIN (08/20/23399) Supplemental O2 Delivery: Room Air, None (08/21/23399) CONSTITUTIONAL State of health: well Level of consciousness: alert Distress: none MUSCULOSKELETAL RLE: - Aquacel dressing intact, large shadowing under dressing 3 cm by 7 cm, no drainage outside aquacel -DP palpable, toes warm and well-perfused LLE: -large dressing intact, 2 x 1 cm shadowing under dressing - dorsiflexion/plantar flexion, EHL/FHL -DP palpable, toes warm and well-perfused Imaging: PO AP pelvis reviewed Assessment/Plan: Ms. Reyes is a/an 68 year old female s/p bilateral total hip replacement, lateral approach by Dr. Cochran on OR date: 08/17/2023. - Tylenol 975 mg PO Q6H, Oxycodone 5-10 mg PO Q4H PRN moderate to severe pain, Dilaudid 0.5 mg IV Q2H PRN breakthrough pain - Lower Right Extremity: weight bearing as tolerated - Lower Left Extremity: weight bearing as tolerated - OOB with assist, hip precautions anterior, posterior, abduction hip precautions , abduction pillow - P.T./O.T. - keep dressing in place, reinforce dressing PRN - F/U as outpatient in 3.5 weeks closed with olinda - regular diet, periop antibiotics complete, A-V impulse boots, ASA - Higher risk with comorbidities: PO doxycycline daily. Discharge 6 weeks of doxycyline. - Care management: can stay on first floor, will take care of her, may need walker. No PT going home. Walk with walker for therapy. If two person assist, may need rehab, Disposition: pending Provisional care provided and general supervision by Dr. Cochran * Ancillary Progress Note - Megan Mei PTA - 08/20/2023 2:28 PM EDT PROGRESS NOTE - Physical Therapy [address] [place] [address] Name: Elsa Reyes Location: [facility] H777/A Date: 08/20/2023 Time: 2:28 PM Elsa Reyes is a/an 68 year old female. Patient Status: Inpatient Insurance: Payor: [facility] [employer] Plan: [facility] CLASSIC COMPLETE RX MH-GD Product Type: *No Product type* Patient Identified By: Name, ID Band and Date Diagnosis: OA B hips (08/20/231426) Status of treatment: Treatment completed (08/20/231426) Orders: PT evaluation and treatment (08/20/231426) Weight Bearing Status: Weight bearing as tolerated (08/20/231426) Precautions: Alarms;Falls;Total hip (anterior/posterior no abduction) (08/20/231426) Total Treatment Time--free text: 12 (08/20/231426) Treatment Provided: Therapeutic Exercises: 12 minutes Extremity Exercise Supine: Hip;Knee;Ankle;Isometrics (08/20/231426) Hip : Bilateral LE;Flexion;Adduction;Abduction;2 sets of 10 (active assist) (08/20/231426) Knee : Bilateral LE;Heel slide;SAQ;2 sets of 10 (active assist) (08/20/231426) Ankle: Bilateral LE;Plantar flexion;Dorsiflexion;2 sets of 10 (08/20/231426) Isometrics: Bilateral LE;Glute sets;Quad sets;2 sets of 10 (08/20/231426) Topic of Education: Goals/plan of care and total hip precautions Method of Education: Verbal discussion and explanation provided to pt: Alarm Status Patient positioned in: Bed (08/20/231426) With: Bed alarm intact and functioning and call soto in reach (08/20/231426) Patient Education Review of Precautions: Total Hip;Fall (08/20/23934) Safety Awareness: Patient verbalizes insight of current deficits;Patient demonstrates carryover of insight during functional tasks;Patient can communicate basic needs;Needs cueing supervision (08/20/23934) Assessment: Pt completed supine active assistive exercises to increase LE strength. Pt was able to recall 3/4 hip precautions. Education was provided. Please consider post-acute care services which may include home health, fci, outpatient therapy or inpatient rehabilitation. The level of care will be determined in collaboration with patient, family/caregiver and care team members. Deficits requiring P.T. treatment needs: Safety;Mobility;Balance;Weakness;Endurance;Range of motion;Lower extremity strength (08/20/231426) Equipment needs: Rolling walker (08/20/23934) Plan: Continue with current treatment plan established on evaluation. AM-PAC assessment not scored at this time due to no mobility being performed. Please refer to future AM-PAC calculations of functional mobility as they become available. * Ancillary Progress Note - Brielle Gil COTA/Joce - 08/20/2023 2:13 PM EDT PROGRESS NOTE - Occupational Therapy [facility] [address] Name: Elsa Reyes Location: [facility] H777/A Date: 08/20/2023 Time: 2:14 PM Elsa Reyes is a 68 year old female. Patient Status: Inpatient Insurance: Payor: [facility] [employer] Plan: [facility] CLASSIC COMPLETE RX MH-GD Product Type: *No Product type* Patient Seen: at bedside, nursing cleared patient for therapy Patient Identified By: Name, ID Band and Date Diagnosis: B/L MERVAT (08/20/23904) Status of treatment: Treatment completed (08/20/23904) Orders: OT evaluation and treatment (08/20/23904) Weight Bearing Status: Weight bearing as tolerated (08/20/23904) Precautions: Alarms;Falls;Safety;Total hip (08/20/23904) Total Treatment Time: 30 (08/20/23904) Subjective: patient agreeable to OT session Pain: Patient has complaints of pain. Pain located B/L hips with weight bearing, patient unable to take steps. Did not rate Observations Consciousness: Alert (08/20/23904) Orientation: Oriented times 4 (08/20/23904) Psychosocial: Patient can communicate basic needs (08/20/23904) Sitting posture: Forward head;Rounded shoulders (08/20/23904) Standing posture: Forward head;Rounded shoulders (08/20/23904) Safety awareness: The Patient verbalizes insight of current deficits.;Needs cueing supervision. (08/20/23904) Other Findings Endurance: Sitting tolerance;Fair;Standing tolerance;Functional activity;Poor (08/19/23909) Light touch sensation: Intact (08/18/231001) Proprioception: Intact (08/18/231001) Coordination: Intact (08/18/231001) Tone: Normal tone (08/18/231001) Edema: Edema noted (08/18/231001) Extremity: RUE (08/18/231001) Current Functional Status: Activities of Daily Living: Self Care Grooming: Supervision (Please comment) (08/20/23904) Toileting: Dependent (08/20/23904) Dressing Lower Body: Maximal Assistance (08/20/23904) Bed Mobility Roll (Right): Maximal Assistance (08/20/23904) Roll (Left): Maximal Assistance (08/20/23904) Supine-Sit: Maximal Assistance (x2) (08/20/23904) Sit-Supine: Maximal Assistance (08/20/23904) Sit - Sidelying: Maximal Assistance (x2) (08/20/23904) OT Transfers Sit-Stand: Minimal Assistance (x2) (08/20/23904) Stand-Sit: Minimal Assistance (x2) (08/20/23904) Balance Sit (Static): (fair to poor_) (08/20/23904) Sit (Dynamic): (poor+ to poor) (08/20/23904) Stand (Static): Poor (08/20/23904) Stand (Dynamic): (unable to take steps secondary to pain) (08/20/23904) Patient Education Education Topic: Role of OT;Plan of care goals (08/20/23904) Review of Precautions: Safety;Fall;Total Hip (08/20/23904) Method of Education: Verbalized to patient (08/20/23904) Education Provided to: Patient (08/20/23904) Response to Education: Receptive and agreeable to education;Needs further education (08/20/23904) Barriers to learning: Medical status (08/20/23904) Preferred learning method: Combination (08/20/23904) Alarm Status Patient positioned in: Bed (08/20/23904) With: Bed alarm intact and functioning and call soto in reach (08/20/23904) Treatment Provided: Self Mcc Management Trainin minutes Deficits requiring O.T. treatment needs: ADL/self- care;Balance;Endurance;Functional mobility;Safety;Upper extremity strength;Weakness (08/19/23909) Assessment: patient supine in bed upon entering room. Reviewed and educated on THP and lower extremity dressing equipment. Patient required assistance to maintain sitting balance on the edge of bed during self care task. Max assistance to roll right and left. Max assistance of two supine to sit andsit to supine. Minimal assistance of two for functional transfer from bed. Patient unable to take any steps secondary to B/L hip pain. Max assistance to chet socks with sock aid. Dependent for toilethygiene. Patient returned to supine secondary to decrease safety to attempt to transfer to recliner. Please consider post-acute care services which may include home health, fci, outpatient therapy or inpatient rehabilitation. The level of care will be determined in collaboration with patient, family/caregiver and care team members. Would benefit from continued OT to maximize functional capabilities. Plan: Continue to follow as per plan. Anticipated Frequency (on eval): Daily (08/20/23904) Equipment Equipment used in Therapy: Rolling walker (08/20/23904) AM-PAC Help From Another Person Eating Meals: A little (08/20/23904) Help From Another Person Taking Care of Personal Grooming: A little (08/20/23904) Help From Another Person To Put On/Take Off Upper Body Clothing: A little (08/19/23909) Help From Another Person To Put On/Take Off Lower Body Clothing: A lot (08/20/23904) Help From Another Person Toileting: Total (08/19/23909) Help From Another Person Bathing: A lot (08/19/23909) OT AM-PAC Score: 13 (08/19/23909) OT AM-PAC t-Scale Score: 32.03 (08/19/23909) HLM (Highest Level of Mobility) Goal: Level 2 bed activities/dependent transfer (08/20/23934) A portion of this AM-PAC assessment not scored based on functional assessment; rather clinical decision making utilized based on current findings and/or prior level of function. Please refer to future AM-PAC calculations of functional ability as they become available. * Ancillary Progress Note - Kelsey Pitts RDN - 08/20/2023 12:46 PM EDT CLINICAL NUTRITION ADULT RISK ASSESSMENT [facility] [address] Name: Elsa Reyes Location: [facility] H777/A Date: 08/20/2023 Time: 12:46 PM How patient was identified (select 2): Medical record number and Name Elsa Reyes is a 68 year old female being assessed for clinical nutrition risk related to ICU LOS. Primary diagnosis: Degenerative joint disease of hip. Operation 08/17/2023: Bilateral Total Hip Arthroplasty Injection of Muscular and Subcutaneous Tissue for Post-Op Analgesia Other pertinent information: The pt has been eating <75% of meals since admission. No noted issues prior to admission. No known food allergies. No nausea, vomiting, constipation and diarrhea. Lastbowel movement was prior to admission. Anthropometrics Measurements Admission weight (for dietitians): 84 kg Height: 150 cm (4' 11.06") (08/17/232322) Weight: 86.6 kg (190 lb 14.7 oz) (08/20/23629) BMI: 37.2 (08/17/232322) Usual Body Weight or EDW for Dialysis Patients: 96 kg (EHR Review, 1 year ago) Diet: Regular Previously followed diet: Regular Food Allergies/Intolerances: None Oral Nutrition Supplement (ONS): None Pertinent medications/vitamins/minerals/supplements: Vitamin B-12 (1000 mcg), Colace, Venofer (300 mg), Miralax, + Folic Acid, Senokot RISK FACTORS: Adult Energy Intake: No significant decrease Interpretation of Weight Change: No recent/significant weight change Skin: Surgical Incision to L/R Hip NUTRITION RISK CATEGORY: Nutrition Risk Category: Low/Moderate (0-1 factors) Clinical Nutrition Recommendations: Diet: Continue current nutrition plan NUTRITION INTERVENTION/PLAN: Continue current care plan Will follow and adjust nutritional plan as medical condition requires. Please contact for change(s)in patient condition requiring earlier intervention. Kelsey Pitts RDN, EMIRN Clinical Nutrition Services Phone: [phone] [facility] * Ancillary Progress Note - Roman Martinez RN - 08/20/2023 10:16 AM EDT CARE MANAGEMENT - ADULT INITIAL SCREENING [facility] [address] Name: Elsa Reyes Location: [facility] H777/A Date: 08/20/2023 Time: 10:17 AM Discussed patient with the interdisciplinary care team. This Pyrometallurgical Engineer performed a chart review and met with Elsa at bedside to complete admission screen and assessed needs for transition planning. The resident caregiver role and services were explained and emotional support was provided. Chief Complaint: No chief complaint on file. Prior Living Arrangements What was your living situation prior to admission/observation?: With Spouse;With Child (08/20/231007) Living Quarters: House (08/20/231007) Number of steps to enter living quarters:: Ramp (08/20/231007) Do you have serious difficulty walking or climbing stairs? (5 years old or older): Yes (08/17/232322) History of falling: No (06/10/24 0800) Prior Level of Functioning Describe the patient's ability prior to admission/observation to perform ADLs: Performs independently (08/20/231007) Requires assistance with: Bathing (08/17/233) Describe the patient's mobility status prior to admission: Patient ambulates independently (08/20/231007) Patient uses assistive device: Yes (08/20/231007) If yes, choose:: Cane;Wheelchair (08/20/231007) Caregiver Information Patient Contacts Name Relation Home Work Mobile Harry Reyes Spouse [phone] Funmilayo Reyes Adult Child [phone] Risk Stratification/Psychosocial/Care Gaps Risk Stratification Psycho Social / Medical Concerns Identified: Adjustment to illness/injury (08/20/231007) Accessed Neighborly to connect patients to social care resources: No (08/20/231007) OBRA or OPTIONS needed for placement: No (08/20/231007) Readmission Risk Score: 16.71 (08/20/23 0801) AM-PAC Score With Stairs : 7 (08/20/23 0935) Prior to Admission Services Services Prior to Admission LADLER Services (Services received within the last 30 days with exception, Psych within last two years): Durable Medical Equipment (08/20/231007) LADLER Durable Medical Equipment (DME) in home: Cane;Wheelchair standard;Walker Rolling (08/20/231007) [place] Dept[place] of Aging (PDA) Waiver Program: N/A (08/20/231007) LADLER Transportation (Services received within the last 30 days): Family/Friends Personal Vehicle (08/20/231007) Outpatient Pyrometallurgical Engineer: No care steam generating powerplant mechanic to display Patient/Family Expectations: plan is to return to home - her and daughter can assist as needed. Her [facility] at this time is a 7. CM began discussion of potential need for short term rehab. She is agreeable if needed. CM stated we will discuss choices after additional therapy session. For further screening information, please refer to the Care Management flow document. * Ancillary Progress Note - Megan Mei, LADLER - 08/20/2023 9:35 AM EDT PROGRESS NOTE - Physical Therapy [address] [address] Name: Elsa Reyes Location: [facility] H777/A Date: 08/20/2023 Time: 09:35 AM Elsa Reyes is a/an 68 year old female. Patient Status: Inpatient Insurance: Payor: [facility] GOLD Plan: [facility] CLASSIC COMPLETE RX MH-GD Product Type: *No Product type* Patient Identified By: Name, ID Band and Date Diagnosis: OA B hips (08/20/23934) Status of treatment: Treatment completed (08/20/23934) Orders: PT evaluation and treatment (08/19/231429) Weight Bearing Status: Weight bearing as tolerated (08/20/23934) Precautions: Alarms;Falls;Total hip (anterior/posterior, no abduction) (08/20/23934) Total Treatment Time--free text: 30 (08/20/23934) Treatment Provided: Therapeutic Activities 15 minutes: bed mobility training transfer training review of THR precautions Sitting tolerance, standing tolerance Therapeutic Exercises: 8 minutes Pain: Patient has complaints of pain. Pain located bilateral hips. P.T. Bed Mobility Roll (Right): Maximal Assistance (08/20/23934) Roll (Left): Maximal Assistance (08/20/23934) Supine-Sit: Maximal Assistance (x2) (08/20/23934) Sit-Supine: Maximal Assistance (x2) (08/20/23934) Transfers Sit-Stand: Minimal Assistance (x2, for 2 transfers) (08/20/23934) Stand-Sit: Minimal Assistance (x2, for 2 transfers) (08/20/23934) Balance Sit (Static): (poor - to fair) (08/20/23934) Sit (Dynamic): (poor to poor +) (08/20/23934) Stand (Static): Poor (08/20/23934) Stand (Dynamic): Not Tested (08/19/231429) Extremity Exercise Supine: Knee;Isometrics (08/20/23934) Knee : Bilateral LE;Heel slide;1 set of 10 (08/20/23934) Isometrics: Bilateral LE;Glute sets;Quad sets;1 set of 10 (08/20/23934) Topic of Education: Safety with mobility, Goals/plan of care, Use of assistive device, Fall prevention, and total hip precautions Method of Education: Verbal discussion and explanation provided to pt: Alarm Status Patient positioned in: Bed (08/20/23934) With: Bed alarm intact and functioning and call soto in reach (08/20/23934) Patient Education Review of Precautions: Total Hip;Fall (08/20/23934) Safety Awareness: Patient verbalizes insight of current deficits;Patient demonstrates carryover of insight during functional tasks;Patient can communicate basic needs;Needs cueing supervision (08/20/23934) Assessment: Pt completed supine exercises to increase LE strength. She required maximal assist for rolling (for eleno care) and maximal assist x2 for supine to sit/sit to supine. Once seated edge of bed she required maximal assist (initially) but did progress to supervision with time and cues. She tended to have a posterior lean. She required minimal assist x2 for sit to stand/stand to sit for 2 transfers. Each stand was maintained for ~5 seconds to a rolling walker. Pt was unable to take steps at this time due to pain. At this time pt is appropriate for a supine slide for out of bed transfers. Pt was educated on her hip precautions. [facility], outpatient therapy or inpatient rehabilitation. The level of care will be determined in collaboration with patient, family/caregiver and care team members. Deficits requiring P.T. treatment needs: Safety;Mobility;Balance;Weakness;Endurance;Range of motion;Lower extremity strength (08/20/23934) Equipment needs: Rolling walker (08/20/23934) Plan: Continue with current treatment plan established on evaluation. AM PAC Score with Stairs: 7 A portion of this AM-PAC assessment not scored based on functional assessment; rather clinical decision making utilized based on current findings and/or prior level of function. Please refer to future AM-PAC calculations of functional ability as they become available. * Ancillary Progress Note - Zaria Dye PTA - 08/19/2023 2:30 PM EDT PROGRESS NOTE - Physical Therapy [facility] [address] Name: Elsa Reyes Location: [facility] H777/A Date: 08/19/2023 Time: 2:30 PM Elsa Reyes is a/an 68 year old female. Patient Status: Inpatient Insurance: Payor: [facility] GOLD Plan: [facility] CLASSIC COMPLETE RX MH-GD Product Type: *No Product type* Patient Seen: at bedside, nursing cleared patient for therapy Patient Identified By: Name, ID Band and Date Diagnosis: OA B hips (08/19/231429) Status of treatment: Treatment completed (08/19/231429) Orders: PT evaluation and treatment (08/19/231429) Weight Bearing Status: Weight bearing as tolerated (08/19/231429) Precautions: Alarms;Falls;Oxygen;Safety;Total hip;Other - describe (hip ABD wedge) (08/19/231429) Total Treatment Time--free text: 15 (08/19/231429) Subjective: Patient agreeable. Pain: No complaints of pain Balance Sit (Static): Not Tested (08/19/231429) Sit (Dynamic): Not Tested (08/19/231429) Stand (Static): Not Tested (08/19/231429) Stand (Dynamic): Not Tested (08/19/231429) Patient and or Family Goal(s): to get well and to return home Topic of Education: Goals/plan of care and Total hip precautions Extremity Exercise Supine: Hip;Ankle;Isometrics (08/19/231429) Hip : Bilateral LE;Flexion;2 sets of 10 (08/19/231429) Ankle: Bilateral LE;Plantar flexion;Dorsiflexion;2 sets of 10 (08/19/231429) Isometrics: Bilateral LE;Glute sets;Quad sets;2 sets of 10 (08/19/231429) Method of Education: Verbal discussion and explanation provided to patient: verbalized understanding and or agreement of this information and demonstrated the exercise and or task Treatment Provided: Therapeutic Exercises: 15 minutes Alarm Status Patient positioned in: Bed (08/19/231429) With: Bed alarm intact and functioning and call soto in reach (08/19/231429) Patient Education Review of Precautions: Total Hip;Safety (08/19/231429) Review of Exercises: Pt Demonstrated Exercise;Verbal Exercises Provided (08/19/231429) Safety Awareness: Patient verbalizes insight of current deficits;Patient demonstrates carryover of insight during functional tasks;Patient can communicate basic needs (08/19/231429) Preferred learning method: Combination (08/19/231429) Barriers to learning: Medical Status (08/19/231429) Method of Education: Verbalized to patient (08/19/231429) Assessment: Patient agreeable. Patient was able to recite total hip precautions at the beginning and end of treatment, maintaining them throughout the session. She was able to perform bilateral lowerextremity exercises without complaints of pain or discomfort. The patient was repositioned for comfort with pillows and the hip ABD wedge. Please consider post-acute care services which may include home health, fci, outpatienttherapy or inpatient rehabilitation. The level of care will be determined in collaboration with patient, family/caregiver and care team members. Deficits requiring P.T. treatment needs: Safety;Mobility;Balance;Weakness;Range of motion;Lower extremity strength (08/19/231429) Equipment needs: Rolling walker (08/19/23 0846) Plan: Continue with current treatment plan established on evaluation. AM PAC Score with Stairs: AM-PAC assessment not scored at this time. Please refer to future AM-PAC calculations of functional mobility as they become available. * Respiratory Progress Note - Dionicio Velazquez GAS MAIN FITTER HELPER - 08/18/2023 5:35 PM EDT PDP RE-EVALUATION NOTE - Respiratory Care Services [facility] [address] Name: Elsa Reyes Location: [facility] H777/A Date: 08/18/2023 Time: 5:35 PM Patient Driven Protocol Summary: Re-evaluation . This Treatment Plan and medications will be reviewed by the Primary Care Team for any contraindications. Respiratory Care Treatment Plan Pulmonary Volume Expansion Therapy: Incentive Spirometry PRN to prevent or treat alveolar consolidation and atelectasis. . Secretion Management Treatment: Flutter TherapyPRN to enhance mobilization of secretions. .. The patient will be re-evaluated: No re-evaluation needed. Indications for treatment met. The Triage Level is: (Assessment Score = 0 - 5) Level 5. Triage Level Definitions: Level 1 Severe Respiratory/Airway Compromise Level 2 Moderate Respiratory/Airway Compromise or high risk for pulmonary complications Level 3 Mild Respiratory/Airway Compromise or moderate risk for pulmonary complications Level 4 Episodic Respiratory/Airway Compromise or low risk for pulmonary complications Level 5 No Respiratory/Airway Compromise Triage 1 Triage 2 Triage 3 Triage 4 Triage 5 greater than 20 16 - 20 11 - 15 6 - 10 0 - 5 Medical Record Assessment Clinical Findings Pulmonary Status: 0 - No Smoking or quit greater than 10 years ago Surgical Status: 1 - General Surgery Chest X-Ray: 0 - Not Performed or performed greater than 3 days ago Assessment Score: 1 Patient Assessment Clinical Findings Respiratory Pattern: 0 - RR 12 - 20; Patient only gets breathless with strenuous exercise. Breath Sounds: 0 - Clear to auscultation Cough Effectiveness: 0 - Strong non-productive Sputum Production 0 - No sputum production Level of Activity: 2 - Temporarily non-ambulatory O2 needed to keep SpO2 greater than or equal to 92%: 1 - Oxygen 1-3 LPM or FiO2 less than 35% Assessment Score: 3 Total Assessment Score: 4 Breath Sounds: Inspiratory and expiratory clear and diminished bilaterally.. Cough and Sputum: No cough was present.. Vital Signs: Resp: 17 (08/18/23 1715) Pulse: 96 (08/18/23 171) Temp: 37.2 C (99 F) (08/18/23 1636) BP: 105/60 (08/18/23 1715) SpO2: 98 % (08/18/23 1636) Primary Service: Critical Care [facility]. Admitting Diagnosis: Primary osteoarthritis of both hips [M16.0] Pulmonary Diagnosis: None documented . * Ancillary Progress Note - Zaria Dye PTA - 08/18/2023 2:38 PM EDT PROGRESS NOTE - Physical Therapy [facility] [address] Name: Elsa Reyes Location: [facility] H777/A Date: 08/18/2023 Time: 2:38 PM Elsa Reyes is a/an 68 year old female. Patient Status: Inpatient Insurance: Payor: [facility] Plan: [facility] CLASSIC COMPLETE RX MH-GD Product Type: *No Product type* Patient Seen: at bedside, nursing cleared patient for therapy Patient Identified By: Name, ID Band and Date Diagnosis: primary OA B/L hips; s/p B/L MERVAT (08/18/231437) Status of treatment: Treatment completed (08/18/231437) Orders: PT evaluation and treatment (08/18/231437) Weight Bearing Status: Weight bearing as tolerated (08/18/231437) Precautions: A-line;Alarms;Cardiac;Falls;Cruz;Oxygen;Safety;Total hip;Other - describe (hip ABD wedge) (08/18/231437) Total Treatment Time--free text: 13 (08/18/231437) Subjective: Patient agreeable. Pain: No complaints of pain Patient and or Family Goal(s): to get well and to return home Topic of Education: Goals/plan of care and Fall prevention Extremity Exercise Supine: Hip;Ankle;Isometrics (08/18/231437) Hip : Bilateral LE;Flexion;2 sets of 10 (08/18/231437) Ankle: Bilateral LE;Plantar flexion;Dorsiflexion;2 sets of 10 (08/18/231437) Isometrics: Bilateral LE;Glute sets;Quad sets;2 sets of 10 (08/18/231437) Method of Education: Verbal discussion and explanation provided to patient: verbalized understanding and or agreement of this information and demonstrated the exercise and or task Treatment Provided: Therapeutic Exercises: 13 minutes Alarm Status Patient positioned in: Bed (08/18/231437) With: Bed alarm intact and functioning and call soto in reach (08/18/231437) Patient Education Review of Precautions: Total Hip;Safety;Skin;Fall (08/18/231437) Review of Exercises: Pt Demonstrated Exercise;Verbal Exercises Provided (08/18/231437) Safety Awareness: Patient verbalizes insight of current deficits;Patient demonstrates carryover of insight during functional tasks;Patient can communicate basic needs (08/18/231437) Preferred learning method: Combination (08/18/231437) Barriers to learning: Medication;Medical Status (08/18/231437) Method of Education: Verbalized to patient;Demonstrated to patient;Patient demonstrated task (08/18/231437) Assessment: Patient agreeable. Patient was approved by PT to be bedrest only for treatment session this afternoon. The patient was able to tolerate various bilateral lower extremity exercises withoutcomplaints of pain or discomfort. The patient required PROM and verbal cues for the exercises. The patient was repositioned in bed for comfort with her call soto within reach and bed alarm activated. Deficits requiring P.T. treatment needs: Weakness;Endurance;Range of motion;Lower extremity strength (08/18/231437) Equipment needs: Rolling walker (08/18/23950) Plan: Continue with current treatment plan established on evaluation. AM PAC Score with Stairs: AM-PAC assessment not scored at this time. Please refer to future AM-PAC calculations of functional mobility as they become available. * Communication - Lesli Bates MD - 08/18/2023 12:39 PM EDT Attempted to contact patient's spouse, Harry, but reached and left message. * Ancillary Progress Note - Tylor Alfredo, GAS MAIN FITTER HELPER - 08/17/2023 9:51 PM EDT PATIENT DRIVEN PROTOCOL - Respiratory Care Services [address] [address] Name: Elsa Reyes Location: [facility] H777/A Date: 08/17/2023 Time: 9:51 PM Patient Driven Protocol Summary: Initial evaluation performed. This Treatment Plan and medications will be reviewed by the Primary Care Team for any contraindications. Respiratory Care Treatment Plan Pulmonary Volume Expansion Therapy: Incentive Spirometry PRN to prevent or treat alveolar consolidation and atelectasis. . The patient will be re-evaluated: No re-evaluation needed. Indications for treatment met. The Triage Level is: (Assessment Score = 0 - 5) Level 5. Triage Level Definitions: Level 1 Severe Respiratory/Airway Compromise Level 2 Moderate Respiratory/Airway Compromise or high risk for pulmonary complications Level 3 Mild Respiratory/Airway Compromise or moderate risk for pulmonary complications Level 4 Episodic Respiratory/Airway Compromise or low risk for pulmonary complications Level 5 No Respiratory/Airway Compromise Triage 1 Triage 2 Triage 3 Triage 4 Triage 5 greater than 20 16 - 20 11 - 15 6 - 10 0 - 5 Medical Record Assessment Clinical Findings Pulmonary Status: 0 - No Smoking or quit greater than 10 years ago Surgical Status: 1 - General Surgery Chest X-Ray: 0 - Not Performed or performed greater than 3 days ago Assessment Score: 1 Patient Assessment Clinical Findings Respiratory Pattern: 0 - RR 12 - 20; Patient only gets breathless with strenuous exercise. Breath Sounds: 0 - Clear to auscultation Cough Effectiveness: 0 - Strong non-productive Sputum Production: 2 - Small amount Level of Activity: 2 - Temporarily non-ambulatory O2 needed to keep SpO2 greater than or equal to 92%: 1 - Oxygen 1-3 LPM or FiO2 less than 35% Assessment Score: 5 Total Assessment Score: 6 Breath Sounds: Inspiratory and expiratory clear and diminished bilaterally.. Cough and Sputum: An effective cough produced no sputum... CXR: None. Vital Signs: Resp: 16 (08/17/238) Pulse: 69 (08/17/23 1400) Temp: 36.5 C (97.7 F) (08/17/23 1245) BP: 125/65 (08/17/23 1400) SpO2: 100 % (08/17/23 1400) PFT: Minimal Predicted IC: 0.639 L. Inspiratory capacity: 1.5L. Primary Service: Critical Care [facility]. Admitting Diagnosis: Primary osteoarthritis of both hips [M16.0] Pulmonary Diagnosis: Obesity. Prescriptions/Home Medications/Durable Medical Equipment: None. Recommended New home medications/durable medical equipment/outpatient pulmonary/sleep referral None. * Progress Notes - Post-Op Maikel - Junior Chavez PA-C - 08/17/2023 7:57 PM EDT Orthopaedic Progress Note [facility] [address] Name: Elsa Reyes Location: OR [facility]/OR Date: 08/17/2023 Time: 7:58 PM 24 hour events/Subjective: post-op check Objective: BP: 125 mmHg/65 mmHg (08/17/23 1400) Pulse: 69 (08/17/23 1400) Resp: 15 (08/17/23 1400) Temp: 36.5 C (08/17/23 1245) Temp Summary: Temp Min: 36.5 C (97.7 F) Max: 36.5 C (97.7 F) SpO2: 100 % (08/17/23 1400) O2 flow rate: Supplemental O2 Delivery: Room Air, None (08/17/23 1245) CONSTITUTIONAL State of health: well Level of consciousness: lethargic Distress: none MUSCULOSKELETAL RLE: palpable dp pulse, wiggles toes LLE: palpable dp pulse, wiggle toes Imaging: PO AP pelvis ordered Labs: Labs (3 Days) No lab values to display. Cultures: Recent Cultures (2 Weeks) No lab values to display. Assessment/Plan: Ms. Reyes is a/an 68 year old female s/p bilateral total hip replacement, lateral approach by Dr. Cochran on OR date: 08/17/2023. - Tylenol 975 mg PO Q6H, Oxycodone 5-10 mg PO Q4H PRN moderate to severe pain, Dilaudid 0.5 mg IV Q2H PRN breakthrough pain - Lower Right Extremity: weight bearing as tolerated - Lower Left Extremity: weight bearing as tolerated - OOB with assist, hip precautions anterior, posterior, abduction hip precautions , abduction pillow - P.T./O.T. - keep dressing in place, reinforce dressing PRN - F/U as outpatient in 3.5 weeks closed with olinda - regular diet, periop antibiotics, A-V impulse boots, ASA - Higher risk with comorbidities: ancef 24 hours then PO doxycycline. Discharge 6 weeks of doxycyline. - Care management: can stay on first floor, will take care of her, may need walker. No PT going home. Walk with walker for therapy - on pressures, accepted by critical care. - After ICU, prefer she go under medicine on HFAM 6 if possible. - Called and gave him the update that she would be in the ICU at least over night with her lower blood pressure. Disposition: pending Provisional care provided and general supervision by Dr. Cochran * Progress Notes - Post-Op Global - Junior Chavez PA-C - 08/17/2023 1:11 PM EDT Orthopaedic Progress Note [facility] [address] Name: Elsa Reyes Location: OR [facility]/OR Date: 08/17/2023 Time: 7:51 PM 24 hour events/Subjective: post-op check Objective: BP: 125 mmHg/65 mmHg (08/17/23 1400) Pulse: 69 (08/17/23 1400) Resp: 15 (08/17/23 1400) Temp: 36.5 C (08/17/23 1245) Temp Summary: Temp Min: 36.5 C (97.7 F) Max: 36.5 C (97.7 F) SpO2: 100 % (08/17/23 1400) O2 flow rate: Supplemental O2 Delivery: Room Air, None (08/17/23 1245) CONSTITUTIONAL State of health: well Level of consciousness: lethargic Distress: none MUSCULOSKELETAL RLE: palpable dp pulse, wiggles toes LLE: palpable dp pulse, wiggle toes Imaging: PO AP pelvis ordered Labs: Labs (3 Days) No lab values to display. Cultures: Recent Cultures (2 Weeks) No lab values to display. Assessment/Plan: Ms. Reyes is a/an 68 year old female s/p bilateral total hip replacement, lateral approach by Dr. Cochran on OR date: 08/17/2023. - Tylenol 975 mg PO Q6H, Oxycodone 5-10 mg PO Q4H PRN moderate to severe pain, Dilaudid 0.5 mg IV Q2H PRN breakthrough pain - Lower Right Extremity: weight bearing as tolerated - Lower Left Extremity: weight bearing as tolerated - OOB with assist, hip precautions anterior, posterior, abduction hip precautions , abduction pillow - P.T./O.T. - keep dressing in place, reinforce dressing PRN - F/U as outpatient in 3.5 weeks closed with olinda - regular diet, periop antibiotics, A-V impulse boots, ASA - Higher risk with comorbidities: ancef 24 hours then PO doxycycline. Discharge 6 weeks of doxycyline. - Care management: can stay on first floor, will take care of her, may need walker. No PT going home. Walk with walker for therapy Disposition: pending Provisional care provided and general supervision by Dr. Cochran documented in this encounter Plan of Treatment Upcoming Encounters Date Type Department Care Team (Late st Contact Info) Description 09/12/2023 10:00 AM EDT Office Visit Orthopaedics, [place] [address] [place] [address] Junior Chavez PA-C [address] [place] [address] 11/14/2023 9:00 AM EDT Office Visit Family Practice [facility] [address] [facility] [place] [phone] José Dougherty III, MD [address] [facility] [place] [address] 12/18/2023 8:30 AM EDT Office Visit Cardiology, [facility] [address] [place] [phone] [place], [address] [place] [address] 03/20/2024 2:00 PM EST Laboratory Laboratory [facility] [address] [place] [phone] [facility] [address] [facility] [place] [phone] 03/27/2024 2:00 PM EST Office Visit Hematology/Oncology [facility] [place] [address] [facility] [place] [phone] Lizbeth Madison CRNP [address] [place] [address] Scheduled Orders Name Type Priority Associated Diagnoses Orde r Schedule XR PELVIS 1 VIEW Medical Imaging STAT One Time for 1 Occurrences starting 08/17/2023 until 08/17/2023 EKG EKG Routine SOB (shortness of breath) One Time for 1 Occurrences starting 08/17/2023 until 08/17/2023 BASIC METABOLIC PANEL Lab Routine Shock (HCC) Expected: 09/02/2023, Expires: 08/25/2024 CBC Lab Routine Shock (HCC) Expected: 09/02/2023, Expires: 08/25/2024 Health Maintenance Due Date Last Done Comments Cologuard 06/16/1999 Fecal Occult Blood Test 06/16/1999 Sigmoidoscopy 06/16/1999 COVID-19 Vaccine ( season) 2023 12/21/2022, 01/25/2021, 2020, Additional history exists Diabetic Eye Exam 07/11/2023 07/10/2022, , 07/10/2022, Additional history exists HbA1c 02/08/2024 08/08/2023, 03/0 03/2023, 11/08/2022, Additional history exists GFR 02/25/2024 08/26/2023, 08/10, 08/24/2023, Additional history exists Mammogram 04/23/2024 04/23/2023, 04/12, 04/19/2022, Additional history exists Albumin/Creatinine Ratio 05/10/2024 024, 04/17/2022, 04/15/2021, Additional history exists Diabetic Foot Exam 05/10/2024 05/11/2023, 0 04/17/2022, 04/15/2021 Depression Screening 06/07/2024 06/08/2023 CKD HGB USE SMARTSET 86307 08/25/202408/25, 08/25/2023, 08/24/2023, Additional history exists CKD PHOS USE SMARTSET 05389 08/25/202408/10, 08/25/2023, 08/24/2023, Additional history exists Colonoscopy 02/03/2025 02/03/2015, 01/11, [...] this encounter Medical Devices Implanted Type Area Central Supply Assistant Device Identifier Shelf Expiration Date Model / Serial / Lot Valve Transcath Resilia 23mm - [id number] Implanted:Qty: 1 on 06/05/2023 by Mat Lucia MD at [facility]ARDIAC LABS [facility] [employer] [id number] 11/12/2023 [id number] / / Screw Bone 6.5x30mm - [id number] Implanted:Qty: 1 on 08/17/2023 by Chito Cochran MD at OR [facility] Right: Hip ALEYDA : ORTHOPAEDICS 05/22/2028 [id number] / / HFF Screw Low Profile 6.2mva84ug - [id number] Implanted:Qty: 1 on 08/17/2023 by Chito Cochran MD at OR [facility] Right: Hip ALEYDA : ORTHOPAEDICS 03/31/2028 [id number] / / [id number] Implant Stem Hip Colr High 2 - [id number] Implanted:Qty: 1 on 08/17/2023 by Chito Cochran MD at OR [facility] Right: Hip ALEYDA : ORTHOPAEDICS 03/20/2027 [id number] / / [id number] Hip Hd Ricardo Chavira 36 25 - [id number] Implanted:Qty: 1 on 08/17/2023 by Chito Cochran MD at OR [facility] Right: Hip ALEYDA : ORTHOPAEDICS 03/19/2028 [id number] / / [id number] Hip Shell Trident X3 10 36x50 - [id number] Implanted:Qty: 1 on 08/17/2023 by Chito Cochran MD at OR [facility] Left: Hip ALEYDA : ORTHOPAEDICS 07/10/2028 [id number] / / [id number] Implant Hip Acetab Shell 52e - [id number] Implanted:Qty: 1 on 08/17/2023 by Chito Cochran MD at OR [facility] Left: Hip ALEYDA : ORTHOPAEDICS 07/07/2028 [id number] / / [id number] 6.5mm Low Profile Hex Screw 6 - [id number] Implanted:Qty: 1 on 08/17/2023 by Chito Cochran MD at OR [facility] Left: Hip ALEYDA : ORTHOPAEDICS 04/24/2028 [id number] / / [id number] Screw Low Profile 6.2ges06gu - [id number] Implanted:Qty: 1 on 08/17/2023 by Chito Cochran MD at OR [facility] Left: Hip ALEYDA : ORTHOPAEDICS 04/16/2028 [id number] / / [id number] Implant Stem Hip Colr High 1 - [id number] Implanted:Qty: 1 on 08/17/2023 by Chito Cochran MD at OR [facility] Left: Hip ALEYDA : ORTHOPAEDICS 12/13/2027 [id number] / / [id number] Hip Hd Ricardo Chavira 36 25 - [id number] Implanted:Qty: 1 on 08/17/2023 by Chito Cochran MD at OR [facility] Left: Hip ALEYDA : ORTHOPAEDICS 01/30/2028 [id number] / / [id number] Hip Shell Trident X3 10 36x50 - [id number] Implanted:Qty: 1 on 08/17/2023 by Chito Cochran MD at OR [facility] Right: Hip ALEYDA : ORTHOPAEDICS 05/03/2028 [id number] / / [id number] Implant Hip Acetab Shell 52e - [id number] Implanted:Qty: 1 on 08/17/2023 by Chito Cochran MD at OR [facility] Right: Hip ALEYDA : ORTHOPAEDICS 06/21/2028 709-04-52E / / [id number] documented as of this encounter Procedures Procedure Name Priority Date/Time Associated Diagnosis Comments BASIC METABOLIC PANEL STAT 08/26/2023 4:48 AM EDT PHOSPHORUS STAT 08/26/2023 4:48 AM EDT CBC STAT 08/26/2023 4:48 AM EDT MAGNESIUM STAT 08/26/2023 4:48 AM EDT BASIC METABOLIC PANEL STAT 08/25/2023 4:26 AM EDT PHOSPHORUS STAT 08/25/2023 4:26 AM EDT CBC STAT 08/25/2023 4:26 AM EDT MAGNESIUM STAT 08/25/2023 4:26 AM EDT BASIC METABOLIC PANEL STAT 08/24/2023 5:01 AM EDT PHOSPHORUS STAT 08/24/2023 5:01 AM EDT CBC STAT 08/24/2023 5:01 AM EDT MAGNESIUM STAT 08/24/2023 5:01 AM EDT BASIC METABOLIC PANEL STAT 08/23/2023 4:16 AM EDT PHOSPHORUS STAT 08/23/2023 4:16 AM EDT CBC STAT 08/23/2023 4:16 AM EDT MAGNESIUM STAT 08/23/2023 4:16 AM EDT CBC STAT 08/22/2023 5:58 PM EDT BASIC METABOLIC PANEL STAT 08/22/2023 4:38 AM EDT PHOSPHORUS STAT 08/22/2023 4:38 AM EDT CBC STAT 08/22/2023 4:38 AM EDT MAGNESIUM STAT 08/22/2023 4:38 AM EDT BASIC METABOLIC PANEL STAT 08/21/2023 4:35 AM EDT PHOSPHORUS STAT 08/21/2023 4:35 AM EDT CBC STAT 08/21/2023 4:35 AM EDT MAGNESIUM STAT 08/21/2023 4:35 AM EDT CBC Routine 08/20/2023 7:17 PM EDT GLUCOSE METER, POINT OF CARE [facility] 08/20/2023 11:20 AM EDT GLUCOSE METER, POINT OF CARE [place] 08/20/2023 7:45 AM EDT BASIC METABOLIC PANEL STAT 08/20/2023 4:19 AM EDT PHOSPHORUS STAT 08/20/2023 4:19 AM EDT CBC STAT 08/20/2023 4:19 AM EDT MAGNESIUM STAT 08/20/2023 4:19 AM EDT TRANSFUSE PACKED RED BLOOD CELLS Routine 08/19/2023 10:49 PM EDT HC COMPATIBILITY ELECTRONIC CROSSMATCH Routine 08/19/2023 10:35 PM EDT CBC Routine 08/19/2023 10:12 PM EDT CORTISOL STAT 08/19/2023 7:32 PM EDT CORTISOL STAT 08/19/2023 7:00 PM EDT CORTISOL STAT 08/19/2023 6:28 PM EDT CBC Routine 08/19/2023 5:18 PM EDT GLUCOSE METER, POINT OF CARE [place] 08/19/2023 5:02 PM EDT GLUCOSE METER, POINT OF CARE [place] 08/19/2023 4:05 PM EDT GLUCOSE METER, POINT OF CARE [place] 08/19/2023 11:05 AM EDT CBC STAT 08/19/2023 9:33 AM EDT GLUCOSE METER, POINT OF CARE SAPMSON 08/19/2023 7:16 AM EDT BASIC METABOLIC PANEL STAT 08/19/2023 4:50 AM EDT PHOSPHORUS STAT 08/19/2023 4:50 AM EDT CBC STAT 08/19/2023 4:50 AM EDT MAGNESIUM STAT 08/19/2023 4:50 AM EDT CORTISOL Add-on 08/19/2023 4:50 AM EDT CBC STAT 08/18/2023 11:14 PM EDT GLUCOSE METER, POINT OF CARE [place] 08/18/2023 9:27 PM EDT LACTATE STAT 08/18/2023 6:42 PM EDT CBC STAT 08/18/2023 6:42 PM EDT TRANSFUSE PACKED RED BLOOD CELLS STAT 08/18/2023 4:36 PM EDT TYPE AND SCREEN STAT 08/18/2023 4:16 PM EDT HC COMPATIBILITY ELECTRONIC CROSSMATCH STAT 08/18/2023 4:05 PM EDT GLUCOSE METER, POINT OF CARE [place] 08/18/2023 3:59 PM EDT CBC STAT 08/18/2023 3:28 PM EDT BLOOD GAS, ARTERIAL STAT 08/18/2023 1 2:27 PM EDT LACTATE STAT 08/18/2023 12:27 PM EDT BASIC METABOLIC PANEL STAT 08/18/2023 3:13 AM EDT PHOSPHORUS STAT 08/18/2023 3:13 AM EDT LACTATE Routine 08/18/2023 3:13 AM EDT CBC STAT 08/18/2023 3:13 AM EDT MAGNESIUM STAT 08/18/2023 3:13 AM EDT CBC STAT 08/17/2023 11:42 PM EDT URINALYSIS, REFLEX TO CULTURE Routine 08/17/2023 9:30 PM EDT URINALYSIS, REFLEX TO CULTURE (CUP ONLY) Routine 08/17/2023 9:30 PM EDT URINALYSIS, REFLEX TO CULTURE (NOT FOR NEUTROPENIC PATIENTS) Routine 08/17/2023 9:30 PM EDT CULTURE, URINE, QUANTITATIVE Routine 08/17/2023 9:18 PM EDT BLOOD GAS, ARTERIAL Routine 08/17/2023 8 :52 PM EDT TEG (THOMROBOELASTOGRAPH) PANEL Routine 08/17/2023 8:51 PM EDT TEG (THROMBOELASTOGRAPH), HEPARINASE Routine 08/17/2023 8:51 PM EDT TROPONIN T, HIGH SENSITIVITY STAT 08/17/2023 8:51 PM EDT TEG (THROMBOELASTOGRAPH) Routine 08/17/2023 8:51 PM EDT BASIC METABOLIC PANEL STAT 08/17/2023 8:51 PM EDT PT INR STAT 08/17/2023 8:51 PM EDT PHOSPHORUS STAT 08/17/2023 8:51 PM EDT LACTATE STAT 08/17/2023 8:51 PM EDT CBC STAT 08/17/2023 8:51 PM EDT MAGNESIUM STAT 08/17/2023 8:51 PM EDT HC COMPATIBILITY ELECTRONIC CROSSMATCH Routine 08/17/2023 8:50 PM EDT WHOLE BLOOD PROFILE, ARTERIAL Routine 08/17/2023 7:11 PM EDT TRANSFUSE PACKED RED BLOOD CELLS Routine 08/17/2023 6:42 PM EDT TRANSFUSE PACKED RED BLOOD CELLS Routine 08/17/2023 6:06 PM EDT WHOLE BLOOD PROFILE, ARTERIAL Routine 08/17/2023 5:30 PM EDT HC COMPATIBILITY ELECTRONIC CROSSMATCH STAT 08/17/2023 3:50 PM EDT TOTAL HIP REPLACEMENT & PROSTHESIS 08/17/2023 2:00 PM EDT Primary osteoarthritis of both hips GLUCOSE METER, POINT OF CARE [place] 08/17/2023 1:21 PM EDT documented in this encounter Results * (ABNORMAL) CBC (08/26/2023 4:48 AM EDT) WBC 18.11(H) 4.00 - 10.80 K/uL 08/26/2023 5:18 AM EDT LABORATORY [facility] RBC 2.73 3.85 - 5.15 M/uL 08/26/2023 5:18 AM EDT LABORATORY [facility] HGB 8.5(L) 12.0 - 15.3 g/dL 08/26/2023 5:18 AM EDT LABORATORY [facility] HCT 26.0(L) 36.0 - 45.2 % 08/26/2023 5:18 AM EDT LABORATORY [facility] MCV 95.2 81.5 - 97.5 fL 08/26/2023 5:18 AM EDT LABORATORY [facility] MCH 31.1 27.0 - 34.0 pg 08/26/2023 5:18 AM EDT LABORATORY [facility] MCHC 32.7 32.0 - 36.0 g/dL 08/26/2023 5:18 AM EDT LABORATORY [facility] RDW 18.2 11.5 - 15.5 % 08/26/2023 5:18 AM EDT LABORATORY [facility] PLT 420(H) 140 - 400 K/uL 08/26/2023 5:18 AM EDT LABORATORY [facility] MPV 9.8 6.6 - 11.1 fL 08/26/2023 5:18 AM EDT LABORATORY [facility] nRBCs 0 <=0 /100 WBCs 08/26/2023 5:18 AM EDT LABORATORY [facility] Blood Venous blood specimen / Unknown Venipuncture / Unknown 08/26/2023 4:48 AM EDT 08/26/2023 5:09 AM EDT Janet Perez DO LAB BLOOD ORDERABLES Performing Organization Address City/[facility]/ZIP Co de Phone Number LABORATORY [facility] [address] [place] [address] * PHOSPHORUS (08/26/2023 4:48 AM EDT) Phosphorus 3.4 2.5 - 4.8 mg/dL 08/26/2023 5:38 AM EDT LABORATORY [facility] Blood Venous blood specimen / Unknown Venipuncture / Unknown 08/26/2023 4:48 AM EDT 08/26/2023 5:09 AM EDT Carolina Merritt PA-C LAB BLOOD ORDER NICOL Performing Organization Address City/[facility] Co de Phone Number LABORATORY [facility] [address] [place] [address] * MAGNESIUM (08/26/2023 4:48 AM EDT) Magnesium 1.9 1.5 - 2.6 mg/dL 08/26/2023 5:38 AM EDT LABORATORY C Blood Venous blood specimen / Unknown Venipuncture / Unknown 08/26/2023 4:48 AM EDT 08/26/2023 5:09 AM EDT Carolina Merritt PA-C LAB BLOOD ORDER NICOL Performing Organization Address City/[facility] Co de Phone Number LABORATORY [facility] [address] [place] [address] * (ABNORMAL) BASIC METABOLIC PANEL (08/26/2023 4:48 AM EDT) BUN 37(H) 6 - 20 mg/dL 08/26/2023 5:38 AM EDT LABORATORY [facility] Creatinine 1.1(H) 0.5 - 1.0 mg/dL 08/26/2023 5:38 AM EDT LABORATORY [facility] Estimated Glomerular Filtration Rate 54(L) >=60 mL/min 08/26/2023 5:38 AM EDT LABORATORY [facility] Comment:eGFR is calculated b ased on the CKD-EPI 2020 equation Sodium 139 135 - 146 mmol/L 08/26/2023 5:38 AM EDT LABORATORY [facility] Potassium 4.7 3.5 - 5.1 mmol/L 08/26/2023 5:38 AM EDT LABORATORY [facility] Chloride 107 98 - 107 mmol/L 08/26/2023 5:38 AM EDT LABORATORY [facility] CO2 21(L) 22 - 32 mmol/L 08/26/2023 5:38 AM EDT LABORATORY [facility] Anion Gap 11 7 - 15 mmol/L 08/26/2023 5:38 AM EDT LABORATORY [facility] Glucose 122(H) 70 - 120 mg/dL 08/26/2023 5:38 AM EDT LABORATORY [facility] Calcium 8.6 8.4 - 10.2 mg/dL 08/26/2023 5:38 AM EDT LABORATORY [facility] Blood Venous blood specimen / Unknown Venipuncture / Unknown 08/26/2023 4:48 AM EDT 08/26/2023 5:09 AM EDT Carolina Merritt PA-C LAB BLOOD ORDER NICOL LABORATORY [facility] [address] [place] [address] * (ABNORMAL) CBC (08/25/2023 4:26 AM EDT) WBC 15.44(H) 4.00 - 10.80 K/uL 08/25/2023 5:06 AM EDT LABORATORY [facility] RBC 2.73 3.85 - 5.15 M/uL 08/25/2023 5:06 AM EDT LABORATORY [facility] HGB 8.1(L) 12.0 - 15.3 g/dL 08/25/2023 5:06 AM EDT LABORATORY [facility] HCT 26.2(L) 36.0 - 45.2 % 08/25/2023 5:06 AM EDT LABORATORY [facility] MCV 96.0 81.5 - 97.5 fL 08/25/2023 5:06 AM EDT LABORATORY [facility] MCH 29.7 27.0 - 34.0 pg 08/25/2023 5:06 AM EDT LABORATORY [facility] MCHC 30.9 32.0 - 36.0 g/dL 08/25/2023 5:06 AM EDT LABORATORY [facility] RDW 18.0 11.5 - 15.5 % 08/25/2023 5:06 AM EDT LABORATORY [facility] PLT 324 140 - 400 K/uL 08/25/2023 5:06 AM EDT LABORATORY [facility] MPV 10.2 6.6 - 11.1 fL 08/25/2023 5:06 AM EDT LABORATORY [facility] nRBCs 0 <=0 /100 WBCs 08/25/2023 5:06 AM EDT LABORATORY [facility] Blood Venous blood specimen / Unknown Venipuncture / Unknown 08/25/2023 4:26 AM EDT 08/25/2023 4:49 AM EDT Janet Perez DO LAB BLOOD ORDERABLES LABORATORY [facility] [address] [place] [address] * PHOSPHORUS (08/25/2023 4:26 AM EDT) Phosphorus 3.5 2.5 - 4.8 mg/dL 08/25/2023 5:22 AM EDT LABORATORY [facility] Blood Venous blood specimen / Unknown Venipuncture / Unknown 08/25/2023 4:26 AM EDT 08/25/2023 4:49 AM EDT Carolina Merritt PA-C LAB BLOOD ORDER NICOL LABORATORY [facility] [address] [place] [address] * MAGNESIUM (08/25/2023 4:26 AM EDT) Magnesium 2.0 1.5 - 2.6 mg/dL 08/25/2023 5:22 AM EDT LABORATORY [facility] Blood Venous blood specimen / Unknown Venipuncture / Unknown 08/25/2023 4:26 AM EDT 08/25/2023 4:49 AM EDT Carolina Merritt PA-C LAB BLOOD ORDER NICOL LABORATORY [facility] [address] [place] [address] * (ABNORMAL) BASIC METABOLIC PANEL (08/25/2023 4:26 AM EDT) BUN 42(H) 6 - 20 mg/dL 08/25/2023 5:22 AM EDT LABORATORY C Creatinine 1.1(H) 0.5 - 1.0 mg/dL 08/25/2023 5:22 AM EDT LABORATORY C Estimated Glomerular Filtration Rate 56(L) >=60 mL/min 08/25/2023 5:22 AM EDT LABORATORY C Comment:eGFR is calculated b ased on the CKD-EPI 2020 equation Sodium 137 135 - 146 mmol/L 08/25/2023 5:22 AM EDT LABORATORY C Potassium 4.4 3.5 - 5.1 mmol/L 08/25/2023 5:22 AM EDT LABORATORY [facility] Chloride 106 98 - 107 mmol/L 08/25/2023 5:22 AM EDT LABORATORY [facility] CO2 23 22 - 32 mmol/L 08/25/2023 5:22 AM EDT LABORATORY [facility] Anion Gap 8 7 - 15 mmol/L 08/25/2023 5:22 AM EDT LABORATORY [facility] Glucose 107 70 - 120 mg/dL 08/25/2023 5:22 AM EDT LABORATORY [facility] Calcium 8.4 8.4 - 10.2 mg/dL 08/25/2023 5:22 AM EDT LABORATORY [facility] Blood Venous blood specimen / Unknown Venipuncture / Unknown 08/25/2023 4:26 AM EDT 08/25/2023 4:49 AM EDT Carolina Merritt PA-C LAB BLOOD ORDER NICOL LAB[facility]ATORY [facility] [address] [place] [address] * (ABNORMAL) CBC (08/24/2023 5:01 AM EDT) WBC 14.22(H) 4.00 - 10.80 K/uL 08/24/2023 5:35 AM EDT LABORATORY [facility] RBC 2.82 3.85 - 5.15 M/uL 08/24/2023 5:35 AM EDT LABORATORY [facility] HGB 8.3(L) 12.0 - 15.3 g/dL 08/24/2023 5:35 AM EDT LABORATORY [facility] HCT 26.2(L) 36.0 - 45.2 % 08/24/2023 5:35 AM EDT LABORATORY [facility] MCV 92.9 81.5 - 97.5 fL 08/24/2023 5:35 AM EDT LABORATORY [facility] MCH 29.4 27.0 - 34.0 pg 08/24/2023 5:35 AM EDT LABORATORY [facility] MCHC 31.7 32.0 - 36.0 g/dL 08/24/2023 5:35 AM EDT LABORATORY [facility] RDW 16.2 11.5 - 15.5 % 08/24/2023 5:35 AM EDT LABORATORY [facility] PLT 272 140 - 400 K/uL 08/24/2023 5:35 AM EDT LABORATORY [facility] MPV 10.2 6.6 - 11.1 fL 08/24/2023 5:35 AM EDT LABORATORY [facility] nRBCs 0 <=0 /100 WBCs 08/24/2023 5:35 AM EDT LABORATORY [facility] Blood Venous blood specimen / Unknown Venipuncture / Unknown 08/24/2023 5:01 AM EDT 08/24/2023 5:19 AM EDT Janet Perez DO LAB BLOOD ORDERABLES LAB[facility]ATORY [facility] [address] [place] [address] * PHOSPHORUS (08/24/2023 5:01 AM EDT) Phosphorus 3.1 2.5 - 4.8 mg/dL 08/24/2023 5:55 AM EDT LABORATORY [facility] Blood Venous blood specimen / Unknown Venipuncture / Unknown 08/24/2023 5:01 AM EDT 08/24/2023 5:19 AM EDT Carolina Merritt PA-C LAB BLOOD ORDER NICOL LABORATORY [facility] [address] [place] [address] * MAGNESIUM (08/24/2023 5:01 AM EDT) Pathologist [facility] Magnesium 2.1 1.5 - 2.6 mg/dL 08/24/2023 5:55 AM EDT LABORATORY [facility] Blood Venous blood specimen / Unknown Venipuncture / Unknown 08/24/2023 5:01 AM EDT 08/24/2023 5:19 AM EDT Carolina Merritt PA-C LAB BLOOD ORDER NICOL Performing Organization Address City/[facility]/ZIP Co de Phone Number LABORATORY [facility] [address] [place] [address] * (ABNORMAL) BASIC METABOLIC PANEL (08/24/2023 5:01 AM EDT) BUN 36(H) 6 - 20 mg/dL 08/24/2023 5:55 AM EDT LABORATORY [facility] Creatinine 1.1(H) 0.5 - 1.0 mg/dL 08/24/2023 5:55 AM EDT LABORATORY [facility] Estimated Glomerular Filtration Rate 54(L) >=60 mL/min 08/24/2023 5:55 AM EDT LABORATORY [facility] Comment:eGFR is calculated b ased on the CKD-EPI 2020 equation Sodium 138 135 - 146 mmol/L 08/24/2023 5:55 AM EDT LABORATORY [facility] Potassium 5.1 3.5 - 5.1 mmol/L 08/24/2023 5:55 AM EDT LABORATORY [facility] Chloride 106 98 - 107 mmol/L 08/24/2023 5:55 AM EDT LABORATORY [facility] CO2 23 22 - 32 mmol/L 08/24/2023 5:55 AM EDT LABORATORY [facility] Anion Gap 9 7 - 15 mmol/L 08/24/2023 5:55 AM EDT LABORATORY [facility] Glucose 113 70 - 120 mg/dL 08/24/2023 5:55 AM EDT LABORATORY [facility] Calcium 8.5 8.4 - 10.2 mg/dL 08/24/2023 5:55 AM EDT LABORATORY [facility] Blood Venous blood specimen / Unknown Venipuncture / Unknown 08/24/2023 5:01 AM EDT 08/24/2023 5:19 AM EDT Carolina Merritt PA-C LAB BLOOD ORDER NICOL LABORATORY [facility] [address] [place], [place] [id number] * (ABNORMAL) CBC (08/23/2023 4:16 AM EDT) WBC 14.89(H) 4.00 - 10.80 K/uL 08/23/2023 4:52 AM EDT LABORATORY [facility] RBC 2.80 3.85 - 5.15 M/uL 08/23/2023 4:52 AM EDT LABORATORY [facility] HGB 8.2(L) 12.0 - 15.3 g/dL 08/23/2023 4:52 AM EDT LABORATORY [facility] HCT 25.2(L) 36.0 - 45.2 % 08/23/2023 4:52 AM EDT LABORATORY [facility] MCV 90.0 81.5 - 97.5 fL 08/23/2023 4:52 AM EDT LABORATORY [facility] MCH 29.3 27.0 - 34.0 pg 08/23/2023 4:52 AM EDT LABORATORY [facility] MCHC 32.5 32.0 - 36.0 g/dL 08/23/2023 4:52 AM EDT LABORATORY [facility] RDW 16.1 11.5 - 15.5 % 08/23/2023 4:52 AM EDT LABORATORY [facility] PLT 224 140 - 400 K/uL 08/23/2023 4:52 AM EDT LABORATORY [facility] MPV 10.2 6.6 - 11.1 fL 08/23/2023 4:52 AM EDT LABORATORY [facility] nRBCs 0 <=0 /100 WBCs 08/23/2023 4:52 AM EDT LABORATORY [facility] Blood Venous blood specimen / Unknown Venipuncture / Unknown 08/23/2023 4:16 AM EDT 08/23/2023 4:43 AM EDT Janet Perez DO LAB BLOOD ORDERABLES LABORATORY [facility] [address] [place] [address] * PHOSPHORUS (08/23/2023 4:16 AM EDT) Phosphorus 2.7 2.5 - 4.8 mg/dL 08/23/2023 5:15 AM EDT LABORATORY [facility] Blood Venous blood specimen / Unknown Venipuncture / Unknown 08/23/2023 4:16 AM EDT 08/23/2023 4:43 AM EDT Carolina PIRES-Arnoldo LAB BLOOD ORDER NICOL Performing Organization Address City/[facility]/ZIP Co de Phone Number LABORATORY C [address] [place] [address] * MAGNESIUM (08/23/2023 4:16 AM EDT) Magnesium 1.6 1.5 - 2.6 mg/dL 08/23/2023 5:15 AM EDT LABORATORY [facility] Blood Venous blood specimen / Unknown Venipuncture / Unknown 08/23/2023 4:16 AM EDT 08/23/2023 4:43 AM EDT Carolina Merritt PA-C LAB BLOOD ORDER NICOL LABORATORY [facility] [address] [place] [address] * (ABNORMAL) BASIC METABOLIC PANEL (08/23/2023 4:16 AM EDT) BUN 28(H) 6 - 20 mg/dL 08/23/2023 5:15 AM EDT [facility] Creatinine 0.9 0.5 - 1.0 mg/dL 08/23/2023 5:15 AM EDT [facility] Estimated Glomerular Filtration Rate 69 >=60 mL/min 08/23/2023 5:15 AM EDT [facility] Comment:eGFR is calculated b ased on the CKD-EPI 2020 equation Sodium 138 135 - 146 mmol/L 08/23/2023 5:15 AM EDT [facility] Potassium 3.6 3.5 - 5.1 mmol/L 08/23/2023 5:15 AM EDT [facility] Chloride 105 98 - 107 mmol/L 08/23/2023 5:15 AM EDT [facility] CO2 23 22 - 32 mmol/L 08/23/2023 5:15 AM EDT [facility] Anion Gap 10 7 - 15 mmol/L 08/23/2023 5:15 AM EDT [facility] Glucose 118 70 - 120 mg/dL 08/23/2023 5:15 AM EDT [facility] Calcium 8.2(L) 8.4 - 10.2 mg/dL 08/23/2023 5:15 AM EDT LABORATORY C Blood Venous blood specimen / Unknown Venipuncture / Unknown 08/23/2023 4:16 AM EDT 08/23/2023 4:43 AM EDT Carolina Merritt PA-C LAB BLOOD ORDER [facility] [address] [place] [address] * (ABNORMAL) CBC (08/22/2023 5:58 PM EDT) WBC 14.28(H) 4.00 - 10.80 K/uL 08/22/2023 6:13 PM EDT [facility] RBC 2.94 3.85 - 5.15 M/uL 08/22/2023 6:13 PM EDT [facility] HGB 8.6(L) 12.0 - 15.3 g/dL 08/22/2023 6:13 PM EDT [facility] HCT 26.4(L) 36.0 - 45.2 % 08/22/2023 6:13 PM EDT [facility] MCV 89.8 81.5 - 97.5 fL 08/22/2023 6:13 PM EDT [facility] MCH 29.3 27.0 - 34.0 pg 08/22/2023 6:13 PM EDT [facility] MCHC 32.6 32.0 - 36.0 g/dL 08/22/2023 6:13 PM EDT [facility] RDW 16.3 11.5 - 15.5 % 08/22/2023 6:13 PM EDT [facility] PLT 215 140 - 400 K/uL 08/22/2023 6:13 PM EDT [facility] MPV 10.3 6.6 - 11.1 fL 08/22/2023 6:13 PM EDT [facility] nRBCs 0 <=0 /100 WBCs 08/22/2023 6:13 PM EDT [facility] Blood Venous blood specimen / Unknown Venipuncture / Unknown 08/22/2023 5:58 PM EDT 08/22/2023 6:01 PM EDT [facility] LAB BLOOD ORDERABLES Performing Organization Address City/State/[facility] Co de Phone Number LABORATORY [facility] [address] [place] [address] * (ABNORMAL) CBC (08/22/2023 4:38 AM EDT) WBC 12.40(H) 4.00 - 10.80 K/uL 08/22/2023 4:50 AM EDT LABORAT[facility] RBC 2.65 3.85 - 5.15 M/uL 08/22/2023 4:50 AM EDT LABORAT[facility] HGB 7.9(L) 12.0 - 15.3 g/dL 08/22/2023 4:50 AM EDT LAB[facility] HCT 23.8(L) 36.0 - 45.2 % 08/22/2023 4:50 AM EDT LAB[facility] MCV 89.8 81.5 - 97.5 fL 08/22/2023 4:50 AM EDT LABORAT[facility] MCH 29.8 27.0 - 34.0 pg 08/22/2023 4:50 AM EDT LAB[facility] MCHC 33.2 32.0 - 36.0 g/dL 08/22/2023 4:50 AM EDT LAB[facility] RDW 16.6 11.5 - 15.5 % 08/22/2023 4:50 AM EDT LABOR[facility] PLT 181 140 - 400 K/uL 08/22/2023 4:50 AM EDT [facility] MPV 10.0 6.6 - 11.1 fL 08/22/2023 4:50 AM EDT LAB[facility] nRBCs 0 <=0 /100 WBCs 08/22/2023 4:50 AM EDT [facility] Blood Venous blood specimen / Unknown Venipuncture / Unknown 08/22/2023 4:38 AM EDT 08/22/2023 4:40 AM EDT Janet Perez DO LAB BLOOD ORDERABLES LABORATORY [facility] [address] [place] [address] * PHOSPHORUS (08/22/2023 4:38 AM EDT) Phosphorus 2.5 2.5 - 4.8 mg/dL 08/22/2023 5:09 AM EDT LABORATORY [facility] Blood Venous blood specimen / Unknown Venipuncture / Unknown 08/22/2023 4:38 AM EDT 08/22/2023 4:40 AM EDT Carolina Merritt PA-C LAB BLOOD ORDER [facility]IC[facility] [address] [place] [address] * MAGNESIUM (08/22/2023 4:38 AM EDT) Magnesium 1.7 1.5 - 2.6 mg/dL 08/22/2023 5:09 AM EDT [facility] Blood Venous blood specimen / Unknown Venipuncture / Unknown 08/22/2023 4:38 AM EDT 08/22/2023 4:40 AM EDT Carolina Mreritt PA-C LAB BLOOD ORDER [facility] [address] [place] [address] * (ABNORMAL) BASIC METABOLIC PANEL (08/22/2023 4:38 AM EDT) BUN 23(H) 6 - 20 mg/dL 08/22/2023 5:09 AM EDT LABORATORY C Creatinine 1.0 0.5 - 1.0 mg/dL 08/22/2023 5:09 AM EDT LABORATORY C Estimated Glomerular Filtration Rate 63 >=60 mL/min 08/22/2023 5:09 AM EDT LAB[facility] Comment:eGFR is calculated b ased on the CKD-EPI 2020 equation Sodium 141 135 - 146 mmol/L 08/22/2023 5:09 AM EDT LAB[facility] Potassium 3.9 3.5 - 5.1 mmol/L 08/22/2023 5:09 AM EDT [facility] Chloride 108(H) 98 - 107 mmol/L 08/22/2023 5:09 AM EDT [facility] CO2 23 22 - 32 mmol/L 08/22/2023 5:09 AM EDT [facility] Anion Gap 10 7 - 15 mmol/L 08/22/2023 5:09 AM EDT [facility] Glucose 94 70 - 120 mg/dL 08/22/2023 5:09 AM EDT [facility] Calcium 8.1(L) 8.4 - 10.2 mg/dL 08/22/2023 5:09 AM EDT [facility] Blood Venous blood specimen / Unknown Venipuncture / Unknown 08/22/2023 4:38 AM EDT 08/22/2023 4:40 AM EDT Carolina Merritt PA-C LAB BLOOD ORDER NICOL [facility] [address] [place] [address] * (ABNORMAL) CBC (08/21/2023 4:35 AM EDT) WBC 14.50(H) 4.00 - 10.80 K/uL 08/21/2023 5:21 AM EDT [facility] RBC 2.56 3.85 - 5.15 M/uL 08/21/2023 5:21 AM EDT [facility] HGB 7.4(L) 12.0 - 15.3 g/dL 08/21/2023 5:21 AM EDT [facility] HCT 22.7(L) 36.0 - 45.2 % 08/21/2023 5:21 AM EDT [facility] MCV 88.7 81.5 - 97.5 fL 08/21/2023 5:21 AM EDT [facility] MCH 28.9 27.0 - 34.0 pg 08/21/2023 5:21 AM EDT [facility] MCHC 32.6 32.0 - 36.0 g/dL 08/21/2023 5:21 AM EDT [facility] RDW 16.1 11.5 - 15.5 % 08/21/2023 5:21 AM EDT [facility] PLT 125(L) 140 - 400 K/uL 08/21/2023 5:21 AM EDT [facility] MPV 10.7 6.6 - 11.1 fL 08/21/2023 5:21 AM EDT [facility] nRBCs 0 <=0 /100 WBCs 08/21/2023 5:21 AM EDT [facility] Blood Venous blood specimen / Unknown Venipuncture / Unknown 08/21/2023 4:35 AM EDT 08/21/2023 4:56 AM EDT Janet Perez DO LAB BLOOD ORDERABLES [facility] [address] [place] [address] * (ABNORMAL) PHOSPHORUS (08/21/2023 4:35 AM EDT) Phosphorus 1.9(L) 2.5 - 4.8 mg/dL 08/21/2023 5:27 AM EDT LABORATORY [facility] Blood Venous blood specimen / Unknown Venipuncture / Unknown 08/21/2023 4:35 AM EDT 08/21/2023 4:56 AM EDT Carolina Merritt PA-C LAB BLOOD ORDER NICOL Performing Organization Address City/[facility]/ZIP Co de Phone Number LABORATORY [facility] [address] [place] [address] * MAGNESIUM (08/21/2023 4:35 AM EDT) Pathologist [facility] Magnesium 1.8 1.5 - 2.6 mg/dL 08/21/2023 5:27 AM EDT LABORATORY [facility] Blood Venous blood specimen / Unknown Venipuncture / Unknown 08/21/2023 4:35 AM EDT 08/21/2023 4:56 AM EDT Carolina Merritt PA-C LAB BLOOD ORDER NICOL Performing Organization Address City/[facility] Co de Phone Number LABORATORY [facility] [address] [place] [address] * (ABNORMAL) BASIC METABOLIC PANEL (08/21/2023 4:35 AM EDT) Pathologist [facility] BUN 20 6 - 20 mg/dL 08/21/2023 5:27 AM EDT LABORATORY [facility] Creatinine 1.0 0.5 - 1.0 mg/dL 08/21/2023 5:27 AM EDT LABORATORY [facility] Estimated Glomerular Filtration Rate 63 >=60 mL/min 08/21/2023 5:27 AM EDT LABORATORY [facility] Comment:eGFR is calculated b ased on the CKD-EPI 2020 equation Sodium 140 135 - 146 mmol/L 08/21/2023 5:27 AM EDT LAB[facility] Potassium 4.2 3.5 - 5.1 mmol/L 08/21/2023 5:27 AM EDT LAB[facility] Chloride 110(H) 98 - 107 mmol/L 08/21/2023 5:27 AM EDT [facility] CO2 22 22 - 32 mmol/L 08/21/2023 5:27 AM EDT [facility] Anion Gap 8 7 - 15 mmol/L 08/21/2023 5:27 AM EDT [facility] Glucose 89 70 - 120 mg/dL 08/21/2023 5:27 AM EDT [facility] Calcium 8.2(L) 8.4 - 10.2 mg/dL 08/21/2023 5:27 AM EDT [facility] Blood Venous blood specimen / Unknown Venipuncture / Unknown 08/21/2023 4:35 AM EDT 08/21/2023 4:56 AM EDT Carolina Merritt PA-C LAB BLOOD ORDER NICOL LABORATORY [facility] [address], [place] [id number] * (ABNORMAL) CBC (08/20/2023 7:17 PM EDT) WBC 14.09(H) 4.00 - 10.80 K/uL 08/20/2023 8:22 PM EDT LAB[facility] RBC 2.40 3.85 - 5.15 M/uL 08/20/2023 8:22 PM EDT LAB[facility] HGB 7.0(L) 12.0 - 15.3 g/dL 08/20/2023 8:22 PM EDT LAB[facility] HCT 21.3(L) 36.0 - 45.2 % 08/20/2023 8:22 PM EDT LAB[facility] MCV 88.8 81.5 - 97.5 fL 08/20/2023 8:22 PM EDT LAB[facility] MCH 29.2 27.0 - 34.0 pg 08/20/2023 8:22 PM EDT LAB[facility] MCHC 32.9 32.0 - 36.0 g/dL 08/20/2023 8:22 PM EDT [facility] RDW 16.2 11.5 - 15.5 % 08/20/2023 8:22 PM EDT [facility] PLT 114(L) 140 - 400 K/uL 08/20/2023 8:22 PM EDT LABORATORY [facility] MPV 10.9 6.6 - 11.1 fL 08/20/2023 8:22 PM EDT LABORATORY [facility] nRBCs 0 <=0 /100 WBCs 08/20/2023 8:22 PM EDT LABORATORY [facility] Blood Venous blood specimen / Unknown Venipuncture / Unknown 08/20/2023 7:17 PM EDT 08/20/2023 7:23 PM EDT Lesli Bates MD LAB BLOOD ORDERABLES LABORATORY [facility] [address] [place] [address] * GLUCOSE METER, POINT OF CARE (08/20/2023 11:20 AM EDT) Glucose Meter 77 70 - 120 mg/dL 08/20/2023 11:24 AM EDT [facility] Blood Whole blood specimen / Unknown 08/20/2023 11:20 AM EDT 08/20/2023 11:24 AM EDT Anahi Chappell MD LAB POINT OF CARE TEST DOCKED DEVICE UNSOLICITED RESULTS Performing Organization Address City/[facility]/ZIP Co de Phone Number [facility] [address] [place] [address] * GLUCOSE METER, POINT OF CARE (08/20/2023 7:45 AM EDT) Glucose Meter 97 70 - 120 mg/dL 08/20/2023 7:53 AM EDT [facility] Blood Whole blood specimen / Unknown 08/20/2023 7:45 AM EDT 08/20/2023 7:53 AM EDT Anahi Chappell MD LAB POINT OF CARE TEST DOCKED DEVICE UNSOLICITED RESULTS [facility] [address] [place] [address] * (ABNORMAL) CBC (08/20/2023 4:19 AM EDT) WBC 16.95(H) 4.00 - 10.80 K/uL 08/20/2023 5:33 AM EDT LAB[facility] RBC 2.47 3.85 - 5.15 M/uL 08/20/2023 5:33 AM EDT LABORATORY [facility] HGB 7.4(L) 12.0 - 15.3 g/dL 08/20/2023 5:33 AM EDT [facility] HCT 21.9(L) 36.0 - 45.2 % 08/20/2023 5:33 AM EDT [facility] MCV 88.7 81.5 - 97.5 fL 08/20/2023 5:33 AM EDT [facility] MCH 30.0 27.0 - 34.0 pg 08/20/2023 5:33 AM EDT LABORATORY [facility] MCHC 33.8 32.0 - 36.0 g/dL 08/20/2023 5:33 AM EDT [facility] RDW 15.6 11.5 - 15.5 % 08/20/2023 5:33 AM EDT LAB[facility] PLT 108(L) 140 - 400 K/uL 08/20/2023 5:33 AM EDT LABORATORY [facility] MPV 10.9 6.6 - 11.1 fL 08/20/2023 5:33 AM EDT LABORATORY GM nRBCs 0 <=0 /100 WBCs 08/20/2023 5:33 AM EDT LABORATORY [facility] Blood Venous blood specimen / Unknown Venipuncture / Unknown 08/20/2023 4:19 AM EDT 08/20/2023 4:53 AM EDT Janet Perez DO LAB BLOOD ORDERABLES LABORATORY [facility] [address] [place] [address] * PHOSPHORUS (08/20/2023 4:19 AM EDT) Pathologist [facility] Phosphorus 3.2 2.5 - 4.8 mg/dL 08/20/2023 5:21 AM EDT [facility] Blood Venous blood specimen / Unknown Venipuncture / Unknown 08/20/2023 4:19 AM EDT 08/20/2023 4:53 AM EDT Carolina Cagejess PIRES-Arnoldo LAB BLOOD ORDER NICOL Performing Organization Address City/[facility]/ZIP Co de Phone Number [facility]ORY [facility] [address] [place] [address] * MAGNESIUM (08/20/2023 4:19 AM EDT) Magnesium 2.0 1.5 - 2.6 mg/dL 08/20/2023 5:21 AM EDT LAB[facility] Blood Venous blood specimen / Unknown Venipuncture / Unknown 08/20/2023 4:19 AM EDT 08/20/2023 4:53 AM EDT Carolina Cagejess PIRES-Arnoldo LAB BLOOD ORDER NICOL Performing Organization Address City/[facility]/ZIP Co de Phone Number [facility] [address] [place] [address] * (ABNORMAL) BASIC METABOLIC PANEL (08/20/2023 4:19 AM EDT) BUN 19 6 - 20 mg/dL 08/20/2023 5:21 AM EDT LAB[facility] Creatinine 1.0 0.5 - 1.0 mg/dL 08/20/2023 5:21 AM EDT LAB[facility]ORY [facility] Estimated Glomerular Filtration Rate 62 >=60 mL/min 08/20/2023 5:21 AM EDT LAB[facility] Comment:eGFR is calculated b ased on the CKD-EPI 2020 equation Sodium 137 135 - 146 mmol/L 08/20/2023 5:21 AM EDT LAB[facility] Potassium 4.0 3.5 - 5.1 mmol/L 08/20/2023 5:21 AM EDT [facility] Chloride 107 98 - 107 mmol/L 08/20/2023 5:21 AM EDT LAB[facility] CO2 20(L) 22 - 32 mmol/L 08/20/2023 5:21 AM EDT LABORATORY [facility] Anion Gap 10 7 - 15 mmol/L 08/20/2023 5:21 AM EDT LABORATORY [facility] Glucose 129(H) 70 - 120 mg/dL 08/20/2023 5:21 AM EDT LABORATORY [facility] Calcium 7.9(L) 8.4 - 10.2 mg/dL 08/20/2023 5:21 AM EDT LABORATORY [facility] Blood Venous blood specimen / Unknown Venipuncture / Unknown 08/20/2023 4:19 AM EDT 08/20/2023 4:53 AM EDT Carolina Merritt PA-C LAB BLOOD ORDER NICOL LABORATORY [facility] [address] [place] [address] * TRANSFUSE PACKED RED BLOOD CELLS (08/20/2023 12:02 AM EDT) Carolina YBARRA BANK TRANFU SE ORDERABLES * TRANSFUSE PACKED RED BLOOD CELLS (08/20/2023 12:02 AM EDT) Carolina YBARRA BANK TRANFU SE ORDERABLES * PREPARE PACKED RED BLOOD CELLS (08/19/2023 10:35 PM EDT) [facility] Unit Product Code [id number] 08/21/2023 12:10 AM EDT LABORATORY [facility] BLOOD BANK Unit Number [id number] 08/21/2023 12:10 AM EDT LABORATORY [facility] BLOOD BANK Unit ABO O 08/21/2023 12:10 AM EDT LABORATORY C BLOOD BANK Unit Rh POS 08/21/2023 12:10 AM EDT LABORATORY [facility] BLOOD BANK Unit Crossmatch Compatible 08/19/2023 10:43 PM EDT LABORATORY C BLOOD BANK Unit Status PT 08/21/2023 12:10 AM EDT LABORATORY [facility] BLOOD BANK Unit Blood Type OPOS 08/21/2023 12:10 AM EDT LABORATORY [facility] BLOOD BANK Unit Expiration [id number] 08/21/2023 12:10 AM EDT LABORATORY [facility] BLOOD BANK Unit Barcode [id number] 08/21/2023 12:10 AM EDT LABORATORY [facility] BLOOD BANK 08/19/2023 10:3 5 PM EDT Carolina Merritt PA-C BLD BANK PRODUC T ORDERABLES LABORATORY [facility] BLOOD BANK [address] [place] [address] * (ABNORMAL) CBC (08/19/2023 10:12 PM EDT) WBC 12.83(H) 4.00 - 10.80 K/uL 08/19/2023 10:24 PM EDT LAB[facility]ORY [facility] RBC 2.11 3.85 - 5.15 M/uL 08/19/2023 10:24 PM EDT LAB[facility]ORY [facility] HGB 6.3(L) 12.0 - 15.3 g/dL 08/19/2023 10:24 PM EDT LAB[facility]ORY [facility] HCT 19.5(L) 36.0 - 45.2 % 08/19/2023 10:24 PM EDT LAB[facility]ATORY [facility] MCV 92.4 81.5 - 97.5 fL 08/19/2023 10:24 PM EDT LAB[facility]ATORY [facility] MCH 29.9 27.0 - 34.0 pg 08/19/2023 10:24 PM EDT LAB[facility]ATORY [facility] MCHC 32.3 32.0 - 36.0 g/dL 08/19/2023 10:24 PM EDT LAB[facility]ORY [facility] RDW 15.6 11.5 - 15.5 % 08/19/2023 10:24 PM EDT LABORATORY [facility] PLT 101(L) 140 - 400 K/uL 08/19/2023 10:24 PM EDT LAB[facility]ORY [facility] MPV 10.5 6.6 - 11.1 fL 08/19/2023 10:24 PM EDT LABORATORY [facility] nRBCs 0 <=0 /100 WBCs 08/19/2023 10:24 PM EDT LABORATORY GM Blood Venous blood specimen / Unknown Venipuncture / Unknown 08/19/2023 10:12 PM EDT 08/19/2023 10:17 PM EDT Lesli Bates MD LAB BLOOD ORDERABLES Performing Organization Address City/[facility]/ZIP Co de Phone Number LABORATORY [facility] [address] [place] [address] * (ABNORMAL) CORTISOL (08/19/2023 7:32 PM EDT) Cortisol 21.4(H) 2.5 - 19.5 ug/dL 08/19/2023 8:16 PM EDT LABORATORY [facility] Comment: AM Reference Range: 4.8 - 19.5 ug/dL PM Reference Range: 2.5 - 11.9 ug/dL Blood Venous blood specimen / Unknown Venipuncture / Unknown 08/19/2023 7:32 PM EDT 08/19/2023 7:37 PM EDT Lesli Bates MD LAB BLOOD ORDERABLES Performing Organization Address [facility] Co de Phone Number LABORATORY [facility] [address] [place] [address] * CORTISOL (08/19/2023 7:00 PM EDT) Cortisol 17.3 2.5 - 19.5 ug/dL 08/19/2023 7:41 PM EDT LABORATORY [facility] Comment: AM Reference Range: 4.8 - 19.5 ug/dL PM Reference Range: 2.5 - 11.9 ug/dL Blood Venous blood specimen / Unknown Venipuncture / Unknown 08/19/2023 7:00 PM EDT 08/19/2023 7:04 PM EDT Lesli Bates MD LAB BLOOD ORDERABLES LABORATORY [facility] [address] [place] [address] * CORTISOL (08/19/2023 6:28 PM EDT) Cortisol 6.9 2.5 - 19.5 ug/dL 08/19/2023 7:39 PM EDT LABORATORY [facility] Comment: AM Reference Range: 4.8 - 19.5 ug/dL PM Reference Range: 2.5 - 11.9 ug/dL Blood Venous blood specimen / Unknown Venipuncture / Unknown 08/19/2023 6:28 PM EDT 08/19/2023 6:32 PM EDT Lesli Bates MD LAB BLOOD ORDERABLES LABORATORY [facility] [address] [place] [address] * (ABNORMAL) CBC (08/19/2023 5:18 PM EDT) WBC 17.38(H) 4.00 - 10.80 K/uL 08/19/2023 5:35 PM EDT LABORATORY [facility] RBC 2.40 3.85 - 5.15 M/uL 08/19/2023 5:35 PM EDT LABORATORY [facility] HGB 7.0(L) 12.0 - 15.3 g/dL 08/19/2023 5:35 PM EDT LAB[facility]ATORY [facility] HCT 21.4(L) 36.0 - 45.2 % 08/19/2023 5:35 PM EDT LABORATORY [facility] MCV 89.2 81.5 - 97.5 fL 08/19/2023 5:35 PM EDT LABORATORY [facility] MCH 29.2 27.0 - 34.0 pg 08/19/2023 5:35 PM EDT LABORATORY [facility] MCHC 32.7 32.0 - 36.0 g/dL 08/19/2023 5:35 PM EDT LAB[facility]ATORY [facility] RDW 15.3 11.5 - 15.5 % 08/19/2023 5:35 PM EDT LABORATORY [facility] PLT 119(L) 140 - 400 K/uL 08/19/2023 5:35 PM EDT LAB[facility]ATORY [facility] MPV 10.1 6.6 - 11.1 fL 08/19/2023 5:35 PM EDT LABORATORY [facility] nRBCs 0 <=0 /100 WBCs 08/19/2023 5:35 PM EDT LAB[facility]ATORY [facility] Blood Venous blood specimen / Unknown Venipuncture / Unknown 08/19/2023 5:18 PM EDT 08/19/2023 5:24 PM EDT Janet Perez DO LAB BLOOD ORDERABLES LABORATORY [facility] [address] [place] [address] * GLUCOSE METER, POINT OF CARE (08/19/2023 5:02 PM EDT) Glucose Meter 116 70 - 120 mg/dL 08/19/2023 5:05 PM EDT [facility] Blood Whole blood specimen / Unknown 08/19/2023 5:02 PM EDT 08/19/2023 5:05 PM EDT Pascual Mo MD LAB POINT OF CARE TEST DOCKED DEVICE UNSOLICITED RESULTS Performing Organization Address [facility] Co de Phone Number [facility] [address] [place] [address] * (ABNORMAL) GLUCOSE METER, POINT OF CARE (08/19/2023 4:05 PM EDT) Glucose Meter 128(H) 70 - 120 mg/dL 08/19/2023 4:11 PM EDT [facility] Blood Whole blood specimen / Unknown 08/19/2023 4:05 PM EDT 08/19/2023 4:11 PM EDT Pascual Mo MD LAB POINT OF CARE TEST DOCKED DEVICE UNSOLICITED RESULTS Performing Organization Address City/[facility]/ZIP Co de Phone Number [facility] [address] [place] [address] * (ABNORMAL) GLUCOSE METER, POINT OF CARE (08/19/2023 11:05 AM EDT) Glucose Meter 160(H) 70 - 120 mg/dL 08/19/2023 11:07 AM EDT [facility] Blood Whole blood specimen / Unknown 08/19/2023 11:05 AM EDT 08/19/2023 11:07 AM EDT Pascual Mo MD LAB POINT OF CARE TEST DOCKED DEVICE UNSOLICITED RESULTS [facility] [address] [place] [address] * (ABNORMAL) CBC (08/19/2023 9:33 AM EDT) WBC 18.07(H) 4.00 - 10.80 K/uL 08/19/2023 10:03 AM EDT LABORATORY [facility] RBC 2.73 3.85 - 5.15 M/uL 08/19/2023 10:03 AM EDT LABORATORY [facility] HGB 8.0(L) 12.0 - 15.3 g/dL 08/19/2023 10:03 AM EDT LABORATORY [facility] HCT 24.4(L) 36.0 - 45.2 % 08/19/2023 10:03 AM EDT LABORATORY [facility] MCV 89.4 81.5 - 97.5 fL 08/19/2023 10:03 AM EDT LABORATORY [facility] MCH 29.3 27.0 - 34.0 pg 08/19/2023 10:03 AM EDT LABORATORY [facility] MCHC 32.8 32.0 - 36.0 g/dL 08/19/2023 10:03 AM EDT LABORATORY [facility] RDW 15.4 11.5 - 15.5 % 08/19/2023 10:03 AM EDT LABORATORY [facility] PLT 126(L) 140 - 400 K/uL 08/19/2023 10:03 AM EDT LABORATORY [facility] MPV 10.9 6.6 - 11.1 fL 08/19/2023 10:03 AM EDT LABORATORY [facility] nRBCs 0 <=0 /100 WBCs 08/19/2023 10:03 AM EDT LABORATORY [facility] Blood Venous blood specimen / Unknown Venipuncture / Unknown 08/19/2023 9:33 AM EDT 08/19/2023 9:47 AM EDT Lesli Bates MD LAB BLOOD ORDERABLES LAB[facility]ATORY [facility] [address] [place] [address] * GLUCOSE METER, POINT OF CARE (08/19/2023 7:16 AM EDT) [facility] Glucose Meter 108 70 - 120 mg/dL 08/19/2023 7:19 AM EDT [facility] Blood Whole blood specimen / Unknown 08/19/2023 7:16 AM EDT 08/19/2023 7:19 AM EDT Pascual Mo MD LAB POINT OF CARE TEST DOCKED DEVICE UNSOLICITED RESULTS Performing Organization Address City/[facility]/ZIP Co de Phone Number [facility] [address] [place] [address] * CORTISOL (08/19/2023 4:50 AM EDT) Pathologist [facility] Cortisol 10.1 2.5 - 19.5 ug/dL 08/19/2023 12:56 PM EDT LABORATORY [facility] Comment: AM Reference Range: 4.8 - 19.5 ug/dL PM Reference Range: 2.5 - 11.9 ug/dL Blood Venous blood specimen / Unknown Venipuncture / Unknown 08/19/2023 4:50 AM EDT 08/19/2023 5:05 AM EDT Janet Perez DO LAB BLOOD ORDERABLES LABORATORY [facility] [address] [place] [address] * (ABNORMAL) CBC (08/19/2023 4:50 AM EDT) WBC 17.51(H) 4.00 - 10.80 K/uL 08/19/2023 5:20 AM EDT LABORATORY [facility] RBC 2.81 3.85 - 5.15 M/uL 08/19/2023 5:20 AM EDT LABORATORY [facility] HGB 8.3(L) 12.0 - 15.3 g/dL 08/19/2023 5:20 AM EDT LABORATORY [facility] HCT 24.8(L) 36.0 - 45.2 % 08/19/2023 5:20 AM EDT LABORATORY [facility] MCV 88.3 81.5 - 97.5 fL 08/19/2023 5:20 AM EDT LABORATORY [facility] MCH 29.5 27.0 - 34.0 pg 08/19/2023 5:20 AM EDT LABORATORY [facility] MCHC 33.5 32.0 - 36.0 g/dL 08/19/2023 5:20 AM EDT LABORATORY [facility] RDW 15.1 11.5 - 15.5 % 08/19/2023 5:20 AM EDT LABORATORY [facility] PLT 112(L) 140 - 400 K/uL 08/19/2023 5:20 AM EDT LABORATORY [facility] MPV 10.8 6.6 - 11.1 fL 08/19/2023 5:20 AM EDT LABORATORY [facility] nRBCs 0 <=0 /100 WBCs 08/19/2023 5:20 AM EDT LABORATORY [facility] Blood Venous blood specimen / Unknown Venipuncture / Unknown 08/19/2023 4:50 AM EDT 08/19/2023 5:05 AM EDT Lseli Bates MD LAB BLOOD ORDERABLES LABORATORY [facility] [address] [place] [address] * (ABNORMAL) PHOSPHORUS (08/19/2023 4:50 AM EDT) Phosphorus 1.8(L) 2.5 - 4.8 mg/dL 08/19/2023 5:36 AM EDT LABORATORY [facility] Blood Venous blood specimen / Unknown Venipuncture / Unknown 08/19/2023 4:50 AM EDT 08/19/2023 5:05 AM EDT Carolina Merritt PA-C LAB BLOOD ORDER NICOL LABORATORY [facility] [address] [place] [address] * MAGNESIUM (08/19/2023 4:50 AM EDT) Magnesium 1.9 1.5 - 2.6 mg/dL 08/19/2023 5:36 AM EDT LABORATORY [facility] Blood Venous blood specimen / Unknown Venipuncture / Unknown 08/19/2023 4:50 AM EDT 08/19/2023 5:05 AM EDT Carolina Merritt PA-C LAB BLOOD ORDER NICOL LABORATORY [facility] [address] [place] [address] * (ABNORMAL) BASIC METABOLIC PANEL (08/19/2023 4:50 AM EDT) BUN 20 6 - 20 mg/dL 08/19/2023 5:36 AM EDT LABORATORY [facility] Creatinine 1.0 0.5 - 1.0 mg/dL 08/19/2023 5:36 AM EDT LABORATORY [facility] Estimated Glomerular Filtration Rate 61 >=60 mL/min 08/19/2023 5:36 AM EDT LABORATORY [facility] Comment:eGFR is calculated b ased on the CKD-EPI 2020 equation Sodium 136 135 - 146 mmol/L 08/19/2023 5:36 AM EDT LABORATORY [facility] Potassium 4.3 3.5 - 5.1 mmol/L 08/19/2023 5:36 AM EDT LABORATORY [facility] Chloride 106 98 - 107 mmol/L 08/19/2023 5:36 AM EDT LABORATORY [facility] CO2 22 22 - 32 mmol/L 08/19/2023 5:36 AM EDT LABORATORY [facility] Anion Gap 8 7 - 15 mmol/L 08/19/2023 5:36 AM EDT LABORATORY [facility] Glucose 113 70 - 120 mg/dL 08/19/2023 5:36 AM EDT LABORATORY [facility] Calcium 8.3(L) 8.4 - 10.2 mg/dL 08/19/2023 5:36 AM EDT LABORATORY [facility] Blood Venous blood specimen / Unknown Venipuncture / Unknown 08/19/2023 4:50 AM EDT 08/19/2023 5:05 AM EDT Carolina Merritt PA-C LAB BLOOD ORDER NICOL LABORATORY [facility] [address] [place] [address] * (ABNORMAL) CBC (08/18/2023 11:14 PM EDT) WBC 17.29(H) 4.00 - 10.80 K/uL 08/18/2023 11:36 PM EDT LABORATORY [facility] RBC 2.76 3.85 - 5.15 M/uL 08/18/2023 11:36 PM EDT LAB[facility]ATORY [facility] HGB 8.2(L) 12.0 - 15.3 g/dL 08/18/2023 11:36 PM EDT LAB[facility] HCT 25.0(L) 36.0 - 45.2 % 08/18/2023 11:36 PM EDT LAB[facility] MCV 90.6 81.5 - 97.5 fL 08/18/2023 11:36 PM EDT LAB[facility]ATORY [facility] MCH 29.7 27.0 - 34.0 pg 08/18/2023 11:36 PM EDT LAB[facility] MCHC 32.8 32.0 - 36.0 g/dL 08/18/2023 11:36 PM EDT LABORATORY [facility] RDW 15.2 11.5 - 15.5 % 08/18/2023 11:36 PM EDT LABOR[facility]ORY [facility] PLT 111(L) 140 - 400 K/uL 08/18/2023 11:36 PM EDT LAB[facility]ATORY [facility] MPV 10.7 6.6 - 11.1 fL 08/18/2023 11:36 PM EDT LABORATORY [facility] nRBCs 0 <=0 /100 WBCs 08/18/2023 11:36 PM EDT LAB[facility] Blood Venous blood specimen / Unknown Venipuncture / Unknown 08/18/2023 11:14 PM EDT 08/18/2023 11:17 PM EDT Lesli Bates MD LAB BLOOD ORDERABLES LAB[facility] [address] [place] [address] * GLUCOSE METER, POINT OF CARE (08/18/2023 9:27 PM EDT) [facility] Glucose Meter 95 70 - 120 mg/dL 08/19/2023 8:06 AM EDT [email or web address] Blood Whole blood specimen / Unknown 08/18/2023 9:27 PM EDT 08/19/2023 8:06 AM EDT Pascual Mo MD LAB POINT OF CARE TEST DOCKED DEVICE UNSOLICITED RESULTS [facility] [address] [place] [address] * LACTATE (08/18/2023 6:42 PM EDT) [facility] Lactate 2.0 0.4 - 2.0 mmol/L 08/18/2023 7:12 PM EDT LABORATORY [facility] Blood Venous blood specimen / Unknown Venipuncture / Unknown 08/18/2023 6:42 PM EDT 08/18/2023 6:47 PM EDT Nael Pimentel MD LAB BLOOD ORDERABLES LABORATORY [facility] [address] [place] [address] * (ABNORMAL) CBC (08/18/2023 6:42 PM EDT) [facility] WBC 16.68(H) 4.00 - 10.80 K/uL 08/18/2023 6:58 PM EDT LABORATORY [facility] RBC 2.83 3.85 - 5.15 M/uL 08/18/2023 6:58 PM EDT LABORATORY [facility] HGB 8.2(L) 12.0 - 15.3 g/dL 08/18/2023 6:58 PM EDT LABORATORY [facility] HCT 25.4(L) 36.0 - 45.2 % 08/18/2023 6:58 PM EDT LAB[facility]ATORY [facility] MCV 89.8 81.5 - 97.5 fL 08/18/2023 6:58 PM EDT LABORATORY [facility] MCH 29.0 27.0 - 34.0 pg 08/18/2023 6:58 PM EDT LABORATORY [facility] MCHC 32.3 32.0 - 36.0 g/dL 08/18/2023 6:58 PM EDT LABORATORY [facility] RDW 15.0 11.5 - 15.5 % 08/18/2023 6:58 PM EDT LABORATORY [facility] PLT 111(L) 140 - 400 K/uL 08/18/2023 6:58 PM EDT LABORATORY [facility] MPV 10.3 6.6 - 11.1 fL 08/18/2023 6:58 PM EDT LABORATORY [facility] nRBCs 0 <=0 /100 WBCs 08/18/2023 6:58 PM EDT LABORATORY [facility] Blood Venous blood specimen / Unknown Venipuncture / Unknown 08/18/2023 6:42 PM EDT 08/18/2023 6:47 PM EDT aNel Pimentel MD LAB BLOOD ORDERABLES Performing Organization Address City/State/[facility] Co de Phone Number LABORATORY [facility] [address] [place] [address] * TRANSFUSE PACKED RED BLOOD CELLS (08/18/2023 5:44 PM EDT) Lesli TAYLORD BANK TRANFUSE OR DERABLES * TRANSFUSE PACKED RED BLOOD CELLS (08/18/2023 5:44 PM EDT) Lesli YBARRA BANK TRANFUSE OR DERABLES * TYPE AND SCREEN (08/18/2023 4:16 PM EDT) ABO O 08/18/2023 4:55 PM EDT LABORATORY [facility] BLOOD BANK Rh Positive 08/18/2023 4:55 PM EDT LABORATORY [facility] BLOOD BANK Red Blood Cell Antibody Screen Negative 08/18/2023 4:55 PM EDT LABORATORY [facility] BLOOD B[facility] Specimen Expiration Date 08/21/2023 23:59 08/18/2023 4:55 PM EDT LABORATORY [facility] BLOOD B[facility] Blood Venous blood specimen / Unknown Venipuncture / Unknown 08/18/2023 4:16 PM EDT 08/18/2023 4:19 PM EDT Lesli Bates MD LAB BLOOD BANK TEST ORDERABLES Performing Organization Address City/[facility]/ZIP Co de Phone Number LABORATORY [facility] BLOOD BANK [address] [place] [address] * PREPARE PACKED RED BLOOD CELLS (08/18/2023 4:05 PM EDT) Unit Product Code [id number] 08/20/2023 2:10 AM EDT LABORATORY [facility] BLOOD B[facility] Unit Number [id number] 08/20/2023 2:10 AM EDT LABORATORY [facility] BLOOD B[facility] Unit ABO O 08/20/2023 2:10 AM EDT LABORATORY [facility] BLOOD B[facility] Unit Rh POS 08/20/2023 2:10 AM EDT [facility] [facility] Unit Crossmatch Compatible 08/18/2023 4:16 PM EDT LAB[facility] Unit Status PT 08/20/2023 2:10 AM EDT LAB[facility]ATORY [facility] Unit Blood Type OPOS 08/20/2023 2:10 AM EDT LAB[facility]ATORY [facility] Unit Expiration [id number] 08/20/2023 2:10 AM EDT LAB[facility]ATORY [facility] Unit Barcode [id number] 08/20/2023 2:10 AM EDT LAB[facility]ATORY [facility] 08/18/2023 4:05 PM EDT Lesli Bates MD BLD BANK PRODUCT ORD ERABLES Performing Organization Address [facility] Co de Phone Number LABORATORY [facility] [address] [place] [address] * GLUCOSE METER, POINT OF CARE (08/18/2023 3:59 PM EDT) Glucose Meter 95 70 - 120 mg/dL 08/19/2023 8:05 AM EDT [email or web address] Blood Whole blood specimen / Unknown 08/18/2023 3:59 PM EDT 08/19/2023 8:05 AM EDT Pascual Mo MD LAB POINT OF CARE TEST DOCKED DEVICE UNSOLICITED RESULTS [facility] [address] [place] [address] * (ABNORMAL) CBC (08/18/2023 3:28 PM EDT) WBC 13.71(H) 4.00 - 10.80 K/uL 08/18/2023 3:55 PM EDT LABORATORY [facility] RBC 2.10 3.85 - 5.15 M/uL 08/18/2023 3:55 PM EDT LAB[facility]ATORY [facility] HGB 6.1(L) 12.0 - 15.3 g/dL 08/18/2023 3:55 PM EDT LAB[facility]ATORY [facility] HCT 18.3(L) 36.0 - 45.2 % 08/18/2023 3:55 PM EDT LAB[facility]ATORY [facility] MCV 87.1 81.5 - 97.5 fL 08/18/2023 3:55 PM EDT LAB[facility]ORY [facility] MCH 29.0 27.0 - 34.0 pg 08/18/2023 3:55 PM EDT LAB[facility]ORY [facility] MCHC 33.3 32.0 - 36.0 g/dL 08/18/2023 3:55 PM EDT LAB[facility]ATORY [facility] RDW 14.6 11.5 - 15.5 % 08/18/2023 3:55 PM EDT LAB[facility]ATORY [facility] PLT 124(L) 140 - 400 K/uL 08/18/2023 3:55 PM EDT LAB[facility]ORY [facility] MPV 10.6 6.6 - 11.1 fL 08/18/2023 3:55 PM EDT LABORATORY [facility] nRBCs 0 <=0 /100 WBCs 08/18/2023 3:55 PM EDT LAB[facility]ORY [facility] Blood Venous blood specimen / Unknown Venipuncture / Unknown 08/18/2023 3:28 PM EDT 08/18/2023 3:34 PM EDT Lesli Bates MD LAB BLOOD ORDERABLES LABORATORY [facility] [address] [place] [address] * (ABNORMAL) BLOOD GAS, ARTERIAL (08/18/2023 12:27 PM EDT) [facility] Signature Temperature 37.0 C 08/18/2023 12:43 PM EDT LAB[facility]ATORY [facility] pH, Arterial 7.343(L) 7.350 - 7.450 units 08/18/2023 12:43 PM EDT LABORATORY [facility] pCO2, Arterial 36.6 35.0 - 45.0 mmHg 08/18/2023 12:43 PM EDT LAB[facility]ATORY [facility] pO2, Arterial 126.0(H) 75.0 - 100.0 mmHg 08/18/2023 12:43 PM EDT LABORATORY [facility] Base Excess, Arterial -5.3(L) -2.0 - 2.0 mmol/L 08/18/2023 12:43 PM EDT LAB[facility] HGB 6.5(L) 12.0 - 15.3 g/dL 08/18/2023 12:43 PM EDT LABORATORY [facility] Oxyhemoglobin, Arterial 96.6 94.0 - 99.0 % total Hgb 08/18/2023 12:43 PM EDT LABORATORY [facility] Carboxyhemoglob in, Whole Blood 1.6(H) <=1.5 % total Hgb 08/18/2023 12:43 PM EDT LABORATORY [facility] Comment:Smokers: 0-9.0 % Methemoglobin, Whole Blood 0.7 <=1.5 % total Hgb 08/18/2023 12:43 PM EDT LAB[facility]ATORY [facility] Reduced Hemoglobin, Arterial 1.1 0.0 - 5.0 % total Hgb 08/18/2023 12:43 PM EDT LAB[facility]ORY [facility] O2 Content, Arterial 9.1(L) 15.0 - 24.0 %vol 08/18/2023 12:43 PM EDT LABORATORY [facility] FiO2 Not Provided % 08/18/2023 12:43 PM EDT LAB[facility]ATORY [facility] O2 Flow, Arterial Not Provided L/min 08/18/2023 12:43 PM EDT LAB[facility]ATORY [facility] Bicarbonate, Whole Blood 19.4(L) 23.0 - 31.0 mmol/L 08/18/2023 12:43 PM EDT LABORATORY [facility] Blood Arterial blood specimen / Unknown Arterial Puncture / Unknown 08/18/2023 12:27 PM EDT 08/18/2023 12:34 PM EDT Lesli Bates MD LAB BLOOD ORDERABLES Performing Organization Address City/[facility]/ZIP Co de Phone Number LABORATORY [facility] [address] [place] [address] * (ABNORMAL) LACTATE (08/18/2023 12:27 PM EDT) Lactate 2.2(H) 0.4 - 2.0 mmol/L 08/18/2023 1:01 PM EDT LABORATORY [facility] Blood Venous blood specimen / Unknown Venipuncture / Unknown 08/18/2023 12:27 PM EDT 08/18/2023 12:34 PM EDT Pascual Mo MD LAB BLOOD ORDERABL ES Performing Organization Address [facility]/ZIP Co de Phone Number LABORATORY [facility] [address] [place] [address] * PHOSPHORUS (08/18/2023 3:13 AM EDT) Phosphorus 3.3 2.5 - 4.8 mg/dL 08/18/2023 3:53 AM EDT LABORATORY [facility] Blood Venous blood specimen / Unknown Venipuncture / Unknown 08/18/2023 3:13 AM EDT 08/18/2023 3:26 AM EDT Carolina Merritt PA-C LAB BLOOD ORDER NICOL Performing Organization Address City/[facility]/ZIP Co de Phone Number LABORATORY [facility] [address] [place] [address] * MAGNESIUM (08/18/2023 3:13 AM EDT) Magnesium 2.0 1.5 - 2.6 mg/dL 08/18/2023 3:53 AM EDT LABORATORY [facility] Blood Venous blood specimen / Unknown Venipuncture / Unknown 08/18/2023 3:13 AM EDT 08/18/2023 3:26 AM EDT Carolina Merritt PA-C LAB BLOOD ORDER NICOL LABORATORY [facility] [address] [place] [address] * (ABNORMAL) BASIC METABOLIC PANEL (08/18/2023 3:13 AM EDT) BUN 35(H) 6 - 20 mg/dL 08/18/2023 3:53 AM EDT LABORATORY [facility] Creatinine 0.9 0.5 - 1.0 mg/dL 08/18/2023 3:53 AM EDT LABORATORY [facility] Estimated Glomerular Filtration Rate 72 >=60 mL/min 08/18/2023 3:53 AM EDT LABORATORY [facility] Comment:eGFR is calculated b ased on the CKD-EPI 2020 equation Sodium 137 135 - 146 mmol/L 08/18/2023 3:53 AM EDT LABORATORY [facility] Potassium 4.4 3.5 - 5.1 mmol/L 08/18/2023 3:53 AM EDT LABORATORY [facility] Chloride 108(H) 98 - 107 mmol/L 08/18/2023 3:53 AM EDT LAB[facility]ATORY [facility] CO2 16(L) 22 - 32 mmol/L 08/18/2023 3:53 AM EDT LAB[facility]ATORY [facility] Anion Gap 13 7 - 15 mmol/L 08/18/2023 3:53 AM EDT LABORATORY [facility] Glucose 163(H) 70 - 120 mg/dL 08/18/2023 3:53 AM EDT LAB[facility]ATORY [facility] Calcium 7.5(L) 8.4 - 10.2 mg/dL 08/18/2023 3:53 AM EDT LABORATORY [facility] Blood Venous blood specimen / Unknown Venipuncture / Unknown 08/18/2023 3:13 AM EDT 08/18/2023 3:26 AM EDT Carolina Merritt PA-C LAB BLOOD ORDER NICOL LABORATORY [facility] [address] [place] [address] * (ABNORMAL) CBC (08/18/2023 3:13 AM EDT) WBC 28.43(H) 4.00 - 10.80 K/uL 08/18/2023 3:33 AM EDT LABORATORY [facility] RBC 3.21 3.85 - 5.15 M/uL 08/18/2023 3:33 AM EDT LAB[facility]ATORY [facility] HGB 9.3(L) 12.0 - 15.3 g/dL 08/18/2023 3:33 AM EDT LAB[facility]ATORY [facility] HCT 28.1(L) 36.0 - 45.2 % 08/18/2023 3:33 AM EDT LAB[facility]ATORY [facility] MCV 87.5 81.5 - 97.5 fL 08/18/2023 3:33 AM EDT LAB[facility]ATORY [facility] MCH 29.0 27.0 - 34.0 pg 08/18/2023 3:33 AM EDT LABORATORY [facility] MCHC 33.1 32.0 - 36.0 g/dL 08/18/2023 3:33 AM EDT LABORATORY [facility] RDW 14.3 11.5 - 15.5 % 08/18/2023 3:33 AM EDT LABORATORY [facility] PLT 176 140 - 400 K/uL 08/18/2023 3:33 AM EDT LAB[facility]ATORY [facility] MPV 10.3 6.6 - 11.1 fL 08/18/2023 3:33 AM EDT LABORATORY [facility] nRBCs 0 <=0 /100 WBCs 08/18/2023 3:33 AM EDT LAB[facility]ATORY [facility] Blood Venous blood specimen / Unknown Venipuncture / Unknown 08/18/2023 3:13 AM EDT 08/18/2023 3:25 AM EDT Carolina Merritt PA-C LAB BLOOD ORDER NICOL LABORATORY [facility] [address] [place] [address] * LACTATE (08/18/2023 3:13 AM EDT) Lactate 1.5 0.4 - 2.0 mmol/L 08/18/2023 3:51 AM EDT LABORATORY [facility] Blood Venous blood specimen / Unknown Venipuncture / Unknown 08/18/2023 3:13 AM EDT 08/18/2023 3:25 AM EDT Carolina Merritt PA-C LAB BLOOD ORDER NICOL LABORATORY [facility] [address] [place] [address] * (ABNORMAL) CBC (08/17/2023 11:42 PM EDT) WBC 26.46(H) 4.00 - 10.80 K/uL 08/17/2023 11:58 PM EDT LABORATORY [facility] RBC 3.08 3.85 - 5.15 M/uL 08/17/2023 11:58 PM EDT LABORATORY [facility] HGB 9.1(L) 12.0 - 15.3 g/dL 08/17/2023 11:58 PM EDT LABORATORY [facility] HCT 27.2(L) 36.0 - 45.2 % 08/17/2023 11:58 PM EDT LABORATORY [facility] MCV 88.3 81.5 - 97.5 fL 08/17/2023 11:58 PM EDT LABORATORY [facility] MCH 29.5 27.0 - 34.0 pg 08/17/2023 11:58 PM EDT LAB[facility]ATORY [facility] MCHC 33.5 32.0 - 36.0 g/dL 08/17/2023 11:58 PM EDT LABORATORY [facility] RDW 14.2 11.5 - 15.5 % 08/17/2023 11:58 PM EDT LABORATORY [facility] PLT 160 140 - 400 K/uL 08/17/2023 11:58 PM EDT LAB[facility]ATORY [facility] MPV 9.9 6.6 - 11.1 fL 08/17/2023 11:58 PM EDT LABORATORY [facility] nRBCs 0 <=0 /100 WBCs 08/17/2023 11:58 PM EDT LABORATORY [facility] Blood Venous blood specimen / Unknown Venipuncture / Unknown 08/17/2023 11:42 PM EDT 08/17/2023 11:50 PM EDT Carolina Merritt PA-C LAB BLOOD ORDER NICOL LABORATORY [facility] [address] [place] [address] * (ABNORMAL) URINALYSIS, REFLEX TO CULTURE (08/17/2023 9:30 PM EDT) Color, Urine Colorless Colorless, Light Yellow, Yellow, Dark Yellow 08/17/2023 10:31 PM EDT LABORATORY [facility] Clarity, Urine Clear Clear 08/17/2023 10:31 PM EDT LABORATORY [facility] Glucose, Urine Negative Negative mg/dL 08/17/2023 10:31 PM EDT LABORATORY [facility] Bilirubin, Urine Negative Negative 08/17/2023 10:31 PM EDT LABORATORY [facility] Ketone, Urine Negative Negative mg/dL 08/17/2023 10:31 PM EDT LABORATORY [facility] Specific [place], Urine 1.027 1.003 - 1.030 08/17/2023 10:31 PM EDT LABORATORY [facility] Blood, Urine Trace(A) Negative 08/17/2023 10:31 PM EDT LABORATORY [facility] pH, Urine 5.0 5.0 - 7.5 Units 08/17/2023 10:31 PM EDT LABORATORY [facility] Protein, Urine Negative Negative mg/dL 08/17/2023 10:31 PM EDT LABORATORY [facility] Urobilinogen, Urine Normal Normal mg/dL 08/17/2023 10:31 PM EDT LABORATORY [facility] Nitrite, Urine Negative Negative 08/17/2023 10:31 PM EDT LABORATORY [facility] Esterase, Urine Negative Negative 08/17/2023 10:31 PM EDT LABORATORY [facility] RBC, Urine 0-2 0 - 2 /HPF 08/17/2023 10:31 PM EDT LABORATORY [facility] WBC, Urine 0-2 0 - 2 /HPF 08/17/2023 10:31 PM EDT LAB[facility]ATORY [facility] Bacteria, Urine 0-25 0 - 25 /HPF 08/17/2023 10:31 PM EDT LAB[facility]ORY [facility] Hyaline, Cast, Urine 5-9(A) None /LPF 08/17/2023 10:31 PM EDT LABORATORY [facility] Culture, Urine 08/17/2023 10:31 PM EDT LABORATORY [facility] Comment:Culture not indicate d by urinalysis results Urine Urine specimen / Unknown Non-blood Collection / Unknown 08/17/2023 9:30 PM EDT 08/17/2023 10:13 PM EDT Carolina Yeni PIRES-C LAB URINE ORDER NICOL Performing Organization Address [facility] Co de Phone Number LABORATORY [facility] [address] [place] [address] * URINALYSIS, REFLEX TO CULTURE (CUP ONLY) (08/17/2023 9:30 PM EDT) Urinalysis, Reflex to Culture Specimen Specimen collected and received 08/18/2023 12:01 AM EDT LABORATORY [facility] Urine Urine specimen / Unknown Non-blood Collection / Unknown 08/17/2023 9:30 PM EDT 08/17/2023 10:13 PM EDT Carolina Yeni PIRES-C LAB URINE ORDER NICOL Performing Organization Address [facility] Co de Phone Number LABORATORY [facility] [address] [place] [address] * CULTURE, URINE, QUANTITATIVE (08/17/2023 9:18 PM EDT) Pathologist [facility] Culture Growth No significant growth 08/18/2023 4:23 PM EDT LABORATORY [facility] Urine Urine specimen obtained by clean catch procedure / Unknown Non-blood Collection / Unknown 08/17/2023 9:18 PM EDT 08/17/2023 9:30 PM EDT Carolina Yeni PIRES-C LAB MICRO - GEN ERAL ORDERABLES Performing Organization Address [facility] Co de Phone Number LABORATORY [facility] [address] [place] [address] * (ABNORMAL) BLOOD GAS, ARTERIAL (08/17/2023 8:52 PM EDT) Temperature 37.0 C 08/17/2023 9:01 PM EDT LABORATORY [facility] pH, Arterial 7.258(L) 7.350 - 7.450 units 08/17/2023 9:01 PM EDT LABORATORY [facility] pCO2, Arterial 44.3 35.0 - 45.0 mmHg 08/17/2023 9:01 PM EDT LABOR[facility]ORY [facility] pO2, Arterial 110.0(H) 75.0 - 100.0 mmHg 08/17/2023 9:01 PM EDT LABORATORY [facility] Base Excess, Arterial -7.1(L) -2.0 - 2.0 mmol/L 08/17/2023 9:01 PM EDT LABORATORY [facility] HGB 8.7(L) 12.0 - 15.3 g/dL 08/17/2023 9:01 PM EDT LABORATORY [facility] Oxyhemoglobin, Arterial 97.8 94.0 - 99.0 % total Hgb 08/17/2023 9:01 PM EDT LAB[facility]ATORY [facility] Carboxyhemoglob in, Whole Blood 1.0 <=1.5 % total Hgb 08/17/2023 9:01 PM EDT LABORATORY [facility] Comment:Smokers: 0-9.0 % Methemoglobin, Whole Blood 0.6 <=1.5 % total Hgb 08/17/2023 9:01 PM EDT LAB[facility]ATORY [facility] Reduced Hemoglobin, Arterial 0.6 0.0 - 5.0 % total Hgb 08/17/2023 9:01 PM EDT LAB[facility] O2 Content, Arterial 12.1(L) 15.0 - 24.0 %vol 08/17/2023 9:01 PM EDT LABORATORY [facility] FiO2 Not Provided % 08/17/2023 9:01 PM EDT LAB[facility]ORY [facility] O2 Flow, Arterial Not Provided L/min 08/17/2023 9:01 PM EDT LAB[facility]ATORY [facility] Bicarbonate, Whole Blood 19.1(L) 23.0 - 31.0 mmol/L 08/17/2023 9:01 PM EDT LAB[facility]ATORY [facility] Blood Arterial blood specimen / Unknown Arterial Puncture / Unknown 08/17/2023 8:52 PM EDT 08/17/2023 8:57 PM EDT Carolina Merritt PA-C LAB BLOOD ORDER NICOL LABORATORY [facility] [address] [place] [address] * (ABNORMAL) TEG (THROMBOELASTOGRAPH), HEPARINASE (08/17/2023 8:51 PM EDT) Reaction Time 2.6 2.5 - 8.3 minutes 08/17/2023 10:01 PM EDT LABORATORY [facility] Kinetics Time 1.1 0.5 - 3.7 minutes 08/17/2023 10:01 PM EDT LABORATORY [facility] Alpha Angle 74.6 46.8 - 78.4 degrees 08/17/2023 10:01 PM EDT LAB[facility]ATORY [facility] Maximum Amplitude 66.9 50.6 - 72.5 mm 08/17/2023 10:01 PM EDT LABORATORY [facility] Coagulation Index 4.0(H) -3.0 - 3.0 08/17/2023 10:01 PM EDT LABORATORY [facility] Percent Lysis 30 0.0 0.0 - 7.5 % 024 10:01 PM EDT LABORATORY [facility] Comment:This is an appended report. These results have been appended to a previously preliminary verified report. Blood Venous blood specimen / Unknown Venipuncture / Unknown 08/17/2023 8:51 PM EDT 08/17/2023 8:56 PM EDT Carolina Merritt PA-C LAB BLOOD ORDER NICOL LABORATORY [facility] [address] [place] [address] * TEG (THROMBOELASTOGRAPH) (08/17/2023 8:51 PM EDT) Reaction Time 3.7 2.5 - 8.3 minutes 08/17/2023 10:01 PM EDT LABORATORY [facility] Kinetics Time 1.2 0.5 - 3.7 minutes 08/17/2023 10:01 PM EDT LABORATORY [facility] Alpha Angle 72.5 46.8 - 78.4 degrees 08/17/2023 10:01 PM EDT LABORATORY [facility] Maximum Amplitude 65.7 50.6 - 72.5 mm 08/17/2023 10:01 PM EDT LABORATORY [facility] Coagulation Index 2.9 -3.0 - 3.0 08/17/2023 10:01 PM EDT LABORATORY [facility] Percent Lysis 30 0.0 0.0 - 7.5 % 024 10:01 PM EDT LABORATORY [facility] Comment:This is an appended report. These results have been appended to a previously preliminary verified report. Blood Venous blood specimen / Unknown Venipuncture / Unknown 08/17/2023 8:51 PM EDT 08/17/2023 8:56 PM EDT Narrative LABORATORY [facility] - 08/17/2023 10:01 PM EDT If R time > 20 minutes and no clot formed suggesting hypocoagulable state or interfering substance (anticoagulation). Consider resubmitting a new sample and/or checking PT/INR, aPTT, fibrinogen, and platelet count. Carolina PIRES-C LAB BLOOD ORDER NICOL Performing Organization Address City/[facility]/ZIP Co de Phone Number LABORATORY [place] [address] [place] [address] * TROPONIN T, HIGH SENSITIVITY (08/17/2023 8:51 PM EDT) Troponin T, High Sensitivity 11 <=14 ng/L 08/17/2023 9:25 PM EDT LABORATORY [facility] Blood Venous blood specimen / Unknown Venipuncture / Unknown 08/17/2023 8:51 PM EDT 08/17/2023 8:56 PM EDT Carolina PIRES-C LAB BLOOD ORDER NICOL LABORATORY [facility] [address] [place] [address] * PHOSPHORUS (08/17/2023 8:51 PM EDT) Phosphorus 3.3 2.5 - 4.8 mg/dL 08/17/2023 9:25 PM EDT LABORATORY [facility] Blood Venous blood specimen / Unknown Venipuncture / Unknown 08/17/2023 8:51 PM EDT 08/17/2023 8:56 PM EDT Carolina Cagehryn Petty PIRES-C LAB BLOOD ORDER NICOL LABORATORY [facility] [address] [place] [address] * MAGNESIUM (08/17/2023 8:51 PM EDT) Magnesium 1.9 1.5 - 2.6 mg/dL 08/17/2023 9:25 PM EDT LABORATORY [facility] Blood Venous blood specimen / Unknown Venipuncture / Unknown 08/17/2023 8:51 PM EDT 08/17/2023 8:56 PM EDT Carolina Rennerty PA-C LAB BLOOD ORDER NICOL Performing Organization Address [facility] Co de Phone Number LABORATORY [facility] [address] [place] [address] * (ABNORMAL) PT INR (08/17/2023 8:51 PM EDT) Prothrombin Time 15.8(H) 11.6 - 15.2 seconds 08/17/2023 9:18 PM EDT LABORATORY [facility] INR 1.3(H) 0.8 - 1.2 08/17/2023 9:18 PM EDT LABORATORY [facility] Blood Venous blood specimen / Unknown Venipuncture / Unknown 08/17/2023 8:51 PM EDT 08/17/2023 8:56 PM EDT Narrative LABORATORY C - 08/17/2023 9:18 PM EDT Warfarin Therapy INR: 2.0-3.0 conventional anticoagulation INR: 2.5-3.5 high intensity anticoagulation Carolina Cagehrbyron Rennerty PA-C LAB BLOOD ORDER NICOL LABORATORY [facility] [address] [place] [address] * LACTATE (08/17/2023 8:51 PM EDT) Lactate 1.1 0.4 - 2.0 mmol/L 08/17/2023 9:22 PM EDT LABORATORY [facility] Blood Venous blood specimen / Unknown Venipuncture / Unknown 08/17/2023 8:51 PM EDT 08/17/2023 8:56 PM EDT Carolina Merritt PA-C LAB BLOOD ORDER NICOL LABORATORY [facility] [address] [place] [address] * (ABNORMAL) BASIC METABOLIC PANEL (08/17/2023 8:51 PM EDT) BUN 36(H) 6 - 20 mg/dL 08/17/2023 9:25 PM EDT LABORATORY [facility] Creatinine 0.9 0.5 - 1.0 mg/dL 08/17/2023 9:25 PM EDT LABORATORY [facility] Estimated Glomerular Filtration Rate 74 >=60 mL/min 08/17/2023 9:25 PM EDT LABORATORY [facility] Comment:eGFR is calculated b ased on the CKD-EPI 2020 equation Sodium 140 135 - 146 mmol/L 08/17/2023 9:25 PM EDT LAB[facility]ATORY [facility] Potassium 4.3 3.5 - 5.1 mmol/L 08/17/2023 9:25 PM EDT LAB[facility]ATORY [facility] Chloride 110(H) 98 - 107 mmol/L 08/17/2023 9:25 PM EDT LAB[facility] CO2 19(L) 22 - 32 mmol/L 08/17/2023 9:25 PM EDT LAB[facility]ORY [facility] Anion Gap 11 7 - 15 mmol/L 08/17/2023 9:25 PM EDT LAB[facility] Glucose 162(H) 70 - 120 mg/dL 08/17/2023 9:25 PM EDT LAB[facility] Calcium 6.7(L) 8.4 - 10.2 mg/dL 08/17/2023 9:25 PM EDT LAB[facility] Blood Venous blood specimen / Unknown Venipuncture / Unknown 08/17/2023 8:51 PM EDT 08/17/2023 8:56 PM EDT Carolina Merritt PA-C LAB BLOOD ORDER NICOL LAB[facility]AT[facility] [address] [place] [address] * (ABNORMAL) CBC (08/17/2023 8:51 PM EDT) [facility] Signature WBC 17.55(H) 4.00 - 10.80 K/uL 08/17/2023 9:05 PM EDT LAB[facility]ATORY [facility] RBC 2.94 3.85 - 5.15 M/uL 08/17/2023 9:05 PM EDT LAB[facility]ATORY [facility] HGB 8.9(L) 12.0 - 15.3 g/dL 08/17/2023 9:05 PM EDT LAB[facility]ORY [facility] HCT 26.5(L) 36.0 - 45.2 % 08/17/2023 9:05 PM EDT LAB[facility]ORY [facility] MCV 90.1 81.5 - 97.5 fL 08/17/2023 9:05 PM EDT LAB[facility]ATORY [facility] MCH 30.3 27.0 - 34.0 pg 08/17/2023 9:05 PM EDT LAB[facility]ORY [facility] MCHC 33.6 32.0 - 36.0 g/dL 08/17/2023 9:05 PM EDT LAB[facility]ORY [facility] RDW 13.8 11.5 - 15.5 % 08/17/2023 9:05 PM EDT LABORATORY [facility] PLT 151 140 - 400 K/uL 08/17/2023 9:05 PM EDT LAB[facility]ORY [facility] MPV 9.8 6.6 - 11.1 fL 08/17/2023 9:05 PM EDT LAB[facility]ATORY [facility] nRBCs 0 <=0 /100 WBCs 08/17/2023 9:05 PM EDT LAB[facility]ORY [facility] Blood Venous blood specimen / Unknown Venipuncture / Unknown 08/17/2023 8:51 PM EDT 08/17/2023 8:56 PM EDT Carolina Merritt PA-C LAB BLOOD ORDER NICOL LAB[facility] [address] [place] [address] * PREPARE PACKED RED BLOOD CELLS (08/17/2023 8:50 PM EDT) Unit Product Code [id number] 08/18/2023 5:16 PM EDT LAB[facility]ATORY [facility] BLOOD BANK Unit Number [id number] 08/18/2023 5:16 PM EDT LAB[facility]ATORY [facility] BLOOD BANK Unit ABO O 08/18/2023 5:16 PM EDT LAB[facility]ORY [facility] BLOOD B[facility] Unit Rh POS 08/18/2023 5:16 PM EDT LAB[facility]ORY [facility] BLOOD B[facility] Unit Crossmatch Compatible 08/17/2023 9:00 PM EDT LAB[facility]ATORY [facility] BLOOD BANK Unit Status RE 08/18/2023 5:16 PM EDT LAB[facility]ATORY [facility] BLOOD BANK Unit Blood Type OPOS 08/18/2023 5:16 PM EDT LAB[facility]ATORY [facility] BLOOD BANK Unit Expiration [id number] 08/18/2023 5:16 PM EDT LAB[facility] Unit Barcode 5100 08/18/2023 5:16 PM EDT [facility] Product Code [id number] 08/18/2023 5:16 PM EDT LAB[facility] Unit Number [id number] 08/18/2023 5:16 PM EDT LAB[facility]AT[facility] Unit ABO O 08/18/2023 5:16 PM EDT LAB[facility] Unit Rh POS 08/18/2023 5:16 PM EDT LAB[facility]ATORY [facility] Unit Crossmatch Compatible 08/17/2023 9:00 PM EDT LAB[facility]ATORY [facility] Unit Status RE 08/18/2023 5:16 PM EDT LAB[facility]AT[facility] Unit Blood Type OPOS 08/18/2023 5:16 PM EDT LAB[facility]ATORY [facility] BLOOD B[facility] Unit Expiration [id number] 08/18/2023 5:16 PM EDT LAB[facility]ATORY [facility] B[facility]OD B[facility] Unit Barcode 5100 08/18/2023 5:16 PM EDT LAB[facility]ATORY [facility] BLOOD BANK 08/17/2023 8:50 PM EDT Carolina Merritt PA-C BLD BANK PRODUC T ORDERABLES LAB[facility]ATORY [facility] BLOOD BANK [address] [place] [address] * (ABNORMAL) WHOLE BLOOD PROFILE, ARTERIAL (08/17/2023 7:11 PM EDT) [facility] Temperature 37.0 C 08/17/2023 7:23 PM EDT LABORATORY [facility] pH, Arterial 7.262(L) 7.350 - 7.450 units 08/17/2023 7:23 PM EDT LABORATORY [facility] pCO2, Arterial 43.3 35.0 - 45.0 mmHg 08/17/2023 7:23 PM EDT LABORATORY [facility] pO2, Arterial 129.0(H) 75.0 - 100.0 mmHg 08/17/2023 7:23 PM EDT LABORATORY [facility] Base Excess, Arterial -7.2(L) -2.0 - 2.0 mmol/L 08/17/2023 7:23 PM EDT LABORATORY [facility] HGB 9.7(L) 12.0 - 15.3 g/dL 08/17/2023 7:23 PM EDT LAB[facility]ATORY [facility] Oxyhemoglobin, Arterial 97.4 94.0 - 99.0 % total Hgb 08/17/2023 7:23 PM EDT LABORATORY [facility] Carboxyhemoglob in, Whole Blood 0.9 <=1.5 % total Hgb 08/17/2023 7:23 PM EDT LABORATORY [facility] Comment:Smokers: 0-9.0 % Methemoglobin, Whole Blood 0.7 <=1.5 % total Hgb 08/17/2023 7:23 PM EDT LABORATORY [facility] Reduced Hemoglobin, Arterial 1.0 0.0 - 5.0 % total Hgb 08/17/2023 7:23 PM EDT LAB[facility]ATORY [facility] O2 Content, Arterial 13.5(L) 15.0 - 24.0 %vol 08/17/2023 7:23 PM EDT LABORATORY [facility] Potassium, Whole Blood 4.2 3.5 - 5.1 mmol/L 08/17/2023 7:23 PM EDT LABORATORY [facility] Sodium, Whole Blood 138 135 - 146 mmol/L 08/17/2023 7:23 PM EDT LABORATORY [facility] Chloride, Whole Blood 110(H) 98 - 107 mmol/L 08/17/2023 7:23 PM EDT LABORATORY [facility] Calcium, Ionized, Whole Blood 1.02(L) 1.13 - 1.32 mmol/L 08/17/2023 7:23 PM EDT LABORATORY [facility] Anion Gap, Whole Blood 8.6 7.0 - 15.0 mmol/L 08/17/2023 7:23 PM EDT LABORATORY [facility] Glucose, Whole Blood 149(H) 70 - 120 mg/dL 08/17/2023 7:23 PM EDT LABORATORY [facility] FiO2 Not Provided % 08/17/2023 7:23 PM EDT LABORATORY [facility] O2 Flow, Arterial Not Provided L/min 08/17/2023 7:23 PM EDT LABORATORY [facility] Bicarbonate, Whole Blood 18.9(L) 23.0 - 31.0 mmol/L 08/17/2023 7:23 PM EDT LABORATORY C Blood Arterial blood specimen / Unknown 08/17/2023 7:11 PM EDT 08/17/2023 7:16 PM EDT Genaro Hurtado MD LAB BLOOD ORDERABL ES Performing Organization Address City/State/[facility] Co de Phone Number LABORATORY [facility] [address] [place] [address] * TRANSFUSE PACKED RED BLOOD CELLS (08/17/2023 6:42 PM EDT) Genaro Hurtado MD [facility] BANK TRANFUSE ORDERABLES * TRANSFUSE PACKED RED BLOOD CELLS (08/17/2023 6:06 PM EDT) Genaro Hurtado MD Fan BANK TRANFUSE ORDERABLES * (ABNORMAL) WHOLE BLOOD PROFILE, ARTERIAL (08/17/2023 5:30 PM EDT) [facility] Signature Temperature 37.0 C 08/17/2023 5:43 PM EDT LABORATORY [facility] pH, Arterial 7.247(L) 7.350 - 7.450 units 08/17/2023 5:43 PM EDT LABORATORY [facility] pCO2, Arterial 40.4 35.0 - 45.0 mmHg 08/17/2023 5:43 PM EDT LABORATORY [facility] pO2, Arterial 161.0(H) 75.0 - 100.0 mmHg 08/17/2023 5:43 PM EDT LABORATORY [facility] Base Excess, Arterial -9.1(L) -2.0 - 2.0 mmol/L 08/17/2023 5:43 PM EDT LABORATORY [facility] HGB 8.1(L) 12.0 - 15.3 g/dL 08/17/2023 5:43 PM EDT [facility] Oxyhemoglobin, Arterial 98.0 94.0 - 99.0 % total Hgb 08/17/2023 5:43 PM EDT [facility] Carboxyhemoglob in, Whole Blood 0.9 <=1.5 % total Hgb 08/17/2023 5:43 PM EDT [facility] Comment:Smokers: 0-9.0 % Methemoglobin, Whole Blood 0.6 <=1.5 % total Hgb 08/17/2023 5:43 PM EDT [facility] Reduced Hemoglobin, Arterial 0.5 0.0 - 5.0 % total Hgb 08/17/2023 5:43 PM EDT [facility] O2 Content, Arterial 11.6(L) 15.0 - 24.0 %vol 08/17/2023 5:43 PM EDT LABOR[facility]ORY C Potassium, Whole Blood 4.2 3.5 - 5.1 mmol/L 08/17/2023 5:43 PM EDT LAB[facility] C Sodium, Whole Blood 140 135 - 146 mmol/L 08/17/2023 5:43 PM EDT LABORATORY C Chloride, Whole Blood 111(H) 98 - 107 mmol/L 08/17/2023 5:43 PM EDT LAB[facility]ATORY [facility] Calcium, Ionized, Whole Blood 1.22 1.13 - 1.32 mmol/L 08/17/2023 5:43 PM EDT LAB[facility]ATORY [facility] Anion Gap, Whole Blood 11.6 7.0 - 15.0 mmol/L 08/17/2023 5:43 PM EDT LAB[facility]ORY C Glucose, Whole Blood 125(H) 70 - 120 mg/dL 08/17/2023 5:43 PM EDT LABORATORY C FiO2 Not Provided % 08/17/2023 5:43 PM EDT LABORATORY C O2 Flow, Arterial Not Provided L/min 08/17/2023 5:43 PM EDT LAB[facility]ATORY [facility] Bicarbonate, Whole Blood 17.0(L) 23.0 - 31.0 mmol/L 08/17/2023 5:43 PM EDT [facility] Blood Arterial blood specimen / Unknown 08/17/2023 5:30 PM EDT 08/17/2023 5:38 PM EDT Genaro Hurtado MD LAB BLOOD ORDERABL ES LAB[facility]ATORY [facility] [address] [place] [address] * PREPARE PACKED RED BLOOD CELLS (08/17/2023 3:50 PM EDT) Unit Product Code [id number] 08/19/2023 2:10 AM EDT [facility] BLOOD B[facility] Unit Number [id number] 08/19/2023 2:10 AM EDT [facility] BLOOD B[facility] Unit ABO O 08/19/2023 2:10 AM EDT [facility] BLOOD B[facility] Unit Rh POS 08/19/2023 2:10 AM EDT [facility] Unit Crossmatch Compatible 08/17/2023 4:02 PM EDT [facility] Unit Status PT 08/19/2023 2:10 AM EDT [facility] Unit Blood Type OPOS 08/19/2023 2:10 AM EDT [facility] Unit Expiration [id number] 08/19/2023 2:10 AM EDT [facility] BLOOD B[facility] Unit Barcode 5100 08/19/2023 2:10 AM EDT [facility] BLO[facility] Unit Product Code [id number] 08/19/2023 2:10 AM EDT [facility] BLO[facility] Unit Number [id number] 08/19/2023 2:10 AM EDT [facility] BLOOD B[facility] Unit ABO O 08/19/2023 2:10 AM EDT [facility] BLOOD [facility] Unit Rh POS 08/19/2023 2:10 AM EDT [facility] BLOOD [facility] Unit Crossmatch Compatible 08/17/2023 4:02 PM EDT [facility] BLO[facility] Unit Status PT 08/19/2023 2:10 AM EDT [facility] BLOOD [facility] Unit Blood Type OPOS 08/19/2023 2:10 AM EDT [facility] BLOOD [facility] Unit Expiration [id number] 08/19/2023 2:10 AM EDT LABORATORY [facility] BLOOD BANK Unit Barcode 5100 08/19/2023 2:10 AM EDT LAB[facility]ATORY [facility] BLOOD BANK 08/17/2023 3:50 PM EDT Genaro Hurtado MD BLD BANK PRODUCT O RDERABLES Performing Organization Address City/[facility]/ZIP Co de Phone Number LABORATORY [facility] BLOOD BANK [address] [place] [address] * GLUCOSE METER, POINT OF CARE (08/17/2023 1:21 PM EDT) [facility] Glucose Meter 90 70 - 120 mg/dL 08/17/2023 1:23 PM EDT [facility] Blood Whole blood specimen / Unknown 08/17/2023 1:21 PM EDT 08/17/2023 1:23 PM EDT Chito Cochran MD LAB POINT OF CA RE TEST DOCKED DEVICE UNSOLICITED RESULTS Performing Organization Address City/[facility] Co de Phone Number [facility] [address] [place] [address] documented in this encounter Visit Diagnoses Diagnosis Status post bilateral hip replacements- Primary Hip joint replacement by other means Primary osteoarthritis of both hips Primary localized osteoarthrosis, pelvic region and thigh Status post total bilateral knee replacement Status post bilateral hip replacements Hip joint replacement by other means SOB (shortness of breath) Shortness of breath Chest pain, unspecified type Abnormal blood chemistry Other abnormal blood chemistry Shock (HCC) Shock, unspecified Primary osteoarthritis of both hips Primary localized osteoarthrosis, pelvic region and thigh HTN, goal below 140/90 Unspecified essential hypertension Dyslipidemia, goal LDL below 130 Other and unspecified hyperlipidemia Chronic kidney disease, stage 3a RBBB (right bundle branch block) Right bundle branch block Conduction disorder of the heart Conduction disorder, unspecified Acute blood loss anemia Acute posthemorrhagic anemia Degenerative joint disease (DJD) of hip Shock (HCC) Shock, unspecified Metabolic acidosis Acidosis Hypotension due to hypovolemia documented in this encounter Administered Medications Inactive Administered Medications - up to 3 most recent administrations Medication Order MAR Action Action Date Dose Rate Site Acetaminophen (Tylenol) tab 650 mg 650 mg, Oral, Q6H, First dose (after last modification) on [facility] 08/23/23 at 1200, Last dose on 08/25/23 at 0600, For 2 days, Avoid in patients with severe hepatic impairment or severe active liver disease. Use for 5 days Given 08/25/2023 5:10 AM EDT 650 mg Given 08/24/2023 10:51 PM EDT 650 mg Given 08/24/2023 5:19 PM EDT 650 mg Acetaminophen (Tylenol) tab 650 mg 650 mg, Oral, Q4H PRN Pain, Mild, Pain, Moderate, Starting on 08/25/23 at 1553, Until 08/26/23 at 1418, Maximum of 4 grams (4000 mg) per day. Acetaminophen (Tylenol) tab 975 mg 975 mg, Oral, PREOP, First dose on Sun08/17/23 at 1300, Last dose on Sun08/17/23 at 1300, For 1 dose, Maximum 4 g acetaminophen/day. Avoid in patients with severe hepatic impairment or severe active liver disease. Administer 60 minutes prior to OR., Pre-Op Given 08/17/2023 1:09 PM EDT 975 mg Acetaminophen (Tylenol) tab 975 mg 975 mg, Oral, Q6H, First dose on Sun08/17/23 at 1945, Last dose on Sun08/22/23 at 1200, For 5 days, Avoid in patients with severe hepatic impairment or severe active liver disease. Use for 5 days Given 08/22/2023 10:54 AM EDT 975 mg Given 08/22/2023 5:49 AM EDT 975 mg Given 08/21/2023 9:34 PM EDT 975 mg albumin (human) (Plasbumin-5) 5 % infusion 25 g Intravenous, at 500 mL/hr, Please scan freezer tunnel operator "square" 2D barcode to record Lot/ Expiration, ONCE, 1 dose, On 08/18/23 at 0315 Rate Verify 08/18/2023 4:00 AM EDT 500 mL/hr Restarted 08/18/2023 3:16 AM EDT 500 mL/hr New Bag 08/18/2023 2:50 AM EDT 25 g 500 mL/hr albumin (human) (Plasbumin-5) 5 % infusion 25 g Intravenous, Please scan freezer tunnel operator "square" 2D barcode to record Lot/ Expiration, ONCE, 1 dose, On 08/19/23 at 1645 Rate Verify 08/19/2023 5:00 PM EDT 500 mL/hr New Bag 08/19/2023 4:55 PM EDT 25 g 500 mL/hr amitriptyline (Elavil) tab 75 mg 75 mg, Oral, QHS, First dose on [facility] 08/18/23 at 2200, Until Discontinued Given 08/25/2023 9:33 PM EDT 75 mg Given 08/24/2023 10:51 PM EDT 75 mg Given 08/23/2023 8:57 PM EDT 75 mg aspirin enteric coated tab 81 mg 81 mg, Oral, BID (.AM/PM), First dose (after last modification) on [facility] 08/18/23 at 0900, Last dose on [place] 09/16/23 at 2100, For 30 days, FOR VTE PROPHYLAXIS Given 08/26/2023 8:51 AM EDT 81 mg Given 08/25/2023 9:34 PM EDT 81 mg Given 08/25/2023 8:55 AM EDT 81 mg atorvaSTATin (Lipitor) tab 80 mg 80 mg, Oral, HS, First dose on [facility] 08/18/23 at 2200, Until Discontinued Given 08/25/2023 9:34 PM EDT 80 mg Given 08/24/2023 10:56 PM EDT 80 mg Given 08/23/2023 8:56 PM EDT 80 mg Bumetanide (Bumex) inj 1 mg 1 mg, IV Push, Daily(AM), First dose on [facility] 08/23/23 at 1130, Until Discontinued, May administer as dispensed over 1 to 5 minutes DO NOT REFRIGERATE Given 08/23/2023 12:54 PM EDT 1 mg calcium GLUConate 1000 mg in 50ml ivpb 1,000 mg, IV Piggyback, ONCE, 1 dose, On Sun08/17/23 at 2130 Rate Verify 08/17/2023 10:00 PM EDT 10 0 mL/hr New Bag 08/17/2023 9:54 PM EDT 1,000 mg 100 mL/hr calcium GLUConate 1000 mg in 50ml ivpb 1,000 mg, IV Piggyback, ONCE, 1 dose, On Sun08/17/23 at 2345 New Bag 08/18/2023 12:31 AM EDT 1,000 mg 100 mL/hr calcium GLUConate 1000 mg in 50ml ivpb 1,000 mg, IV Piggyback, ONCE, 1 dose, On Sun08/18/23 at 0515 New Bag 08/18/2023 4:59 AM EDT 1,000 mg 1 00 mL/hr calcium GLUConate 1000 mg in 50ml ivpb 1,000 mg, IV Piggyback, ONCE, 1 dose, On Sun08/20/23 at 0730 New Bag 08/20/2023 7:23 AM EDT 1,000 mg 100 mL/hr ceFAZolin in dextrose (Ancef) ivpb 2 g 2 g, IV Piggyback, Q8H, 2 doses, First dose on Sun08/17/23 at 2200, Last dose on Sun08/18/23 at 0600 Rate Verify 08/18/2023 6:00 AM EDT 4 g/hr 100 mL/hr New 08/18/2023 5:52 AM EDT 2 g 100 mL/hr Rate Verify 08/17/2023 11:00 PM EDT 4 g/hr 100 mL/hr chlorhexidine gluconate cloth 2 % pad 1 Pad 1 Pad, External, PREOP, First dose on Sun08/17/23 at 1300, Last dose on Sun08/17/23 at 1300, For 1 dose, Cleanse surgical site area before transferring intraop, Pre-Op Given 08/17/2023 1:17 PM EDT 1 P ad Cosyntropin (Cortrosyn) inj 250 mcg 250 mcg, IV Push, ONCE, On Sun08/19/23 at 1800, For 1 dose, For a valid cortisol stimulation test, Draw cortisol lab 3 times: Immediately before the cosyntropin injection, 30 minutes after administration of cosyntropin injection 60 minutes after administration cosyntropin injection May administer as dispensed over 2 minutes. Protect from light. For cortisol stimulation test a baseline cortisol level must be drawn immediately before the cosyntropin and then 30 minutes and 60 minutes post administration. Given 08/19/2023 6:26 PM EDT 250 mcg CYANOCOBALAMIN (vitamin B-12) tab 1,000 mcg 1,000 mcg, Oral, Daily(AM), First dose on Sun08/20/23 at 0900, Until Discontinued Given 08/26/2023 8:51 AM EDT 1,00 0 mcg Given 08/25/2023 8:55 AM EDT 1,000 mcg Given 08/24/2023 7:50 AM EDT 1,000 mcg Docusate Sodium (Colace) cap 100 mg 100 mg, Oral, BID (.AM/PM), First dose on Sun08/17/23 at 2100, Until Discontinued, For oral administration ONLY, if route of administration is other than oral and alternative product must be ordered. Given 08/26/2023 8:51 AM EDT 100 mg Given 08/25/2023 8:56 AM EDT 100 mg Given 08/24/2023 10:51 PM EDT 100 mg doxycycline tab 100 mg 100 mg, Oral, Q12H, First dose on Sun08/18/23 at 0900, Last dose on Sun08/27/23 at 2100, For 10 days Given 08/26/2023 8:51 AM EDT 100 mg Given 08/25/2023 9:34 PM EDT 100 mg Given 08/25/2023 8:55 AM EDT 100 mg Famotidine (Pepcid) tab 20 mg 20 mg, Oral, [id number], First dose on Sun08/18/23 at 0900, Until Discontinued Given 08/19/2023 8:26 AM EDT 20 mg Given 08/18/2023 8:51 AM EDT 20 mg Furosemide (Lasix) inj 20 mg 20 mg, IV Push, ONCE, On Sun08/21/23 at 1115, For 1 dose Given 08/21/2023 11:05 AM EDT 20 mg Furosemide (Lasix) inj 40 mg 40 mg, IV Push, ONCE, On Sun08/22/23 at 0545, For 1 dose Given 08/22/2023 5:49 AM EDT 40 mg hEParin inj 5,000 Units 5,000 Units, Subcutaneous, Q8H, First dose on Sun08/21/23 at 1400, Until Discontinued Given 08/26/2023 6:05 AM EDT 5,000 Units Abdomen Left Upper Given 08/25/2023 9:33 PM EDT 5,000 Units A bdomen Left Lower Given 08/25/2023 2:00 PM EDT 5,000 Units A bdomen Left Lower Iron Sucrose (Venofer) 300 mg in NSS 250 mL ivpb 300 mg, IV Piggyback, Daily(AM), 2 doses, First dose on Sun08/20/23 at 0900, Last dose on Sun08/21/23 at 0900, Administer over 90 Minutes New Bag 08/21/2023 8:17 AM EDT 300 mg 180 mL/hr New Bag 08/20/2023 8:54 AM EDT 300 mg 180 mL/hr isolyte 1,000 mL bolus infusion Intravenous, Administer entire volume within 60 minutes or less. Plasma-LYTE 148, isolyte-S, and isolyte-S pH 7.4 are considered equivalent - including for MAR barcode scanning., ONCE, 1 dose, On Sun08/18/23 at 1200 New Bag 08/18/2023 12:24 PM EDT 1,000 mL 1000 mL/hr isolyte 1,000 mL bolus infusion Intravenous, Administer entire volume within 60 minutes or less. Plasma-LYTE 148, isolyte-S, and isolyte-S pH 7.4 are considered equivalent - including for MAR barcode scanning., ONCE, 1 dose, On Sun08/20/23 at 0715 Rate Verify 08/20/2023 7:00 AM EDT 1000 mL/hr New Bag 08/20/2023 6:51 AM EDT 1,000 mL 1000 mL/hr isolyte 500 mL bolus infusion Intravenous, Administer entire volume within 60 minutes or less. Plasma-LYTE 148, isolyte-S, and isolyte-S pH 7.4 are considered equivalent - including for MAR barcode scanning., ONCE, 1 dose, On Sun08/17/23 at 2345 Rate Verify 08/18/2023 12:00 AM EDT 500 mL/hr New Bag 08/17/2023 11:22 PM EDT 500 mL 500 mL/hr isolyte 500 mL bolus infusion Intravenous, Administer entire volume within 60 minutes or less. Plasma-LYTE 148, isolyte-S, and isolyte-S pH 7.4 are considered equivalent - including for MAR barcode scanning., ONCE, 1 dose, On Sun08/18/23 at 1500 New Bag 08/18/2023 3:21 PM EDT 500 mL 500 mL/hr isolyte-S pH 7.4 infusion Intravenous, at 100 mL/hr, Plasma-LYTE 148, isolyte-S, and isolyte-S pH 7.4 are considered equivalent - including for MAR barcode scanning., CONTINUOUS, Starting on Sun08/17/23 at 2130, Until Sun08/18/23 at 1122 Rate Verify 08/18/2023 6:00 AM EDT 100 mL /hr Rate Verify 08/18/2023 4:00 AM EDT 100 mL/hr Rate Verify 08/18/2023 3:00 AM EDT 100 mL/hr Letrozole (Femara) tab 2.5 mg 2.5 mg, Oral, Daily(AM), First dose on Sun08/18/23 at 1245, Until Discontinued Given 08/26/2023 8:51 AM EDT 2.5 mg Given 08/25/2023 8:56 AM EDT 2.5 mg Given 08/24/2023 7:51 AM EDT 2.5 mg magnesium sulfate 1 g in d5w 100mL LOCKED DOSE 1 g, IV Piggyback, ONCE, 1 dose, On Sun08/17/23 at 2345, Administer over 60 Minutes Rate Verify 08/18/2023 12:00 AM EDT 1 g/hr 100 mL/hr New Bag 08/17/2023 11:19 PM EDT 1 g 100 mL/hr magnesium sulfate 1 g in d5w 100mL LOCKED DOSE 1 g, IV Piggyback, ONCE, 1 dose, On Sun08/22/23 at 0600, Administer over 60 Minutes New Bag 08/22/2023 5:50 AM EDT 1 g 100 mL/hr magnesium sulfate 1 g in d5w 100mL LOCKED DOSE 1 g, IV Piggyback, Q1H, 2 doses, First dose on Sun08/23/23 at 0815, Last dose on Sun08/23/23 at 0900, Administer over 60 Minutes, Total dose is 2g New Bag 08/23/2023 11:04 AM EDT 1 g 100 mL/hr New Bag 08/23/2023 10:01 AM EDT 1 g 100 mL/hr Menthol ([place]) cough drop 1 Lozenge 1 Lozenge, Oral, Q2H PRN Sore throat, Starting on Sun08/17/23 at 1901, Until Sun08/26/23 at 1418 Nadolol (Corgard) tab 20 mg 20 mg, Oral, HS, First dose on Sun08/22/23 at 2200, Until Discontinued, Hold for HR less than 60 or SBP below 100 and notify service if dose is held Given 08/25/2023 9:36 PM EDT 20 mg Given 08/24/2023 10:51 PM EDT 20 mg Given 08/23/2023 8:56 PM EDT 20 mg naloxone (Narcan) 0.4 MG/ML inj 0.08 mg 0.08 mg, IV Push, PRN Other, If patient is oversedated or Respiratory Rate less than 8, Starting on Sun08/17/23 at 1901, Until 08/26/23 at 1418, Call provider if patient is oversedated or Respiratory Rate is less than 8 NORepinephrine (Levophed) 4 mg in 250 ml D5W STANDARD CONCENTRATION 16 mcg/ml Order Mode: Standard Titration, Starting Rate (mcg/min): 5, Clinical Target: MAP 65-70, Infusion Titration Adjustments: Increase or Decrease by up to 5 mcg/min no more frequently than every 2 minutes to achieve specified goal, Maximum Dose: 30 mcg/min for nurse titration. Dose titrations 31-90 mcg/min require provider order. If administering vasopressor peripherally, please refer to the Peripheral Vasopressor Guidelines., Patient Transfer: Patient should be transferred to a higher level of care if rate exceeds nursing unit specific guidelines., 0-30 mcg/min (0-112.5 mL/hr), TITRATE, Starting on Sun08/17/23 at 2145, Until Sun08/20/23 at 2211, Peripheral IV Restarted 08/20/2023 7:17 AM EDT 1 mcg/min 3.75 mL/hr Rate Change 08/20/2023 6:34 AM EDT 1 mcg/min 3.75 mL/hr Rate Verify 08/20/2023 6:00 AM EDT 2 mcg/min 7.5 mL/hr ondansetron (Zofran) inj 4 mg 4 mg, IV Push, Q6H PRN Other, May use for nausea or vomiting if patient unable to take oral ondansetron, Starting on Sun08/17/23 at 1901, Until 08/26/23 at 1418 ondansetron ODT (Zofran) tab 4 mg 4 mg, On Tongue, Q6H PRN Nausea, Vomiting, Starting on Sun08/17/23 at 1901, Until 08/26/23 at 1418 oxyCODONE (Oxy IR) tab 10 mg 10 mg, Oral, Q4H PRN Pain, Breakthrough, Starting on Sun08/17/23 at 1901, Until Sun08/21/23 at 1518, Hold for respiratory depression Given 08/21/2023 8:03 AM EDT 10 mg Given 08/18/2023 6:16 PM EDT 10 mg Given 08/18/2023 5:48 AM EDT 10 mg oxyCODONE (Oxy IR) tab 10 mg 10 mg, Oral, Q4H PRN Pain, Severe, Starting on Sun08/21/23 at 1518, Until 08/25/23 at 1554, Hold for respiratory depression Given 08/24/2023 7:50 AM EDT 10 mg Given 08/23/2023 6:19 AM EDT 10 mg Given 08/22/2023 5:48 AM EDT 10 mg oxyCODONE (Oxy IR) tab 5 mg 5 mg, Oral, Q4H PRN Pain, Moderate, Starting on Sun08/17/23 at 1901, Until 08/25/23 at 1554 Given 08/25/2023 8:56 AM EDT 5 mg Given 08/24/2023 10:51 PM EDT 5 mg Given 08/24/2023 12:50 PM EDT 5 mg oxyCODONE (Oxy IR) tab 5 mg 5 mg, Oral, Q4H PRN Pain, Severe, Starting on Sun08/25/23 at 1553, Until Sun08/26/23 at 1418 Given 08/25/2023 4: 09 PM EDT 5 mg Polyethylene Glycol 3350 (Miralax) oral powder 17 g 17 g (1 Packet), Oral, Daily(AM), First dose on Sun08/20/23 at 0900, Until Discontinued, Mix in 8 oz of water, juice, soda, coffee, or tea. Given 08/20/2023 7:35 AM EDT 17 g Polyethylene Glycol 3350 (Miralax) oral powder 34 g 34 g (2 Packet), Oral, BID (0900,2100), First dose (after last modification) on Sun08/20/23 at 2100, Until Discontinued, Mix in 8 oz of water, juice, soda, coffee, or tea. Given 08/26/2023 8:51 AM EDT 34 g Given 08/25/2023 8:56 AM EDT 34 g Given 08/24/2023 10:51 PM EDT 34 g potassium and sodium phosphate (Phos-Nak) oral powder 1 Packet 1 Packet, Oral, ONCE, On Sun08/19/23 at 0615, For 1 dose, Mix 1 packet in 2.5 ounces (75 mL) of water, stir well and administer promptly. 1 packet contains Phosphorus 250 mg (~8 mMoles) + potassium 280 mg (~7.125 mEq) + sodium 160mg (~7.125 mEq) Given 08/19/2023 6:14 AM EDT 1 Packet potassium and sodium phosphate (Phos-Nak) oral powder 2 Packet 2 Packet, Oral, ONCE, On Sun08/21/23 at 0630, For 1 dose, Mix 1 packet in 2.5 ounces (75 mL) of water, stir well and administer promptly. 1 packet contains Phosphorus 250 mg (~8 mMoles) + potassium 280 mg (~7.125 mEq) + sodium 160mg (~7.125 mEq) Given 08/21/2023 6:04 AM EDT 2 Packets potassium and sodium phosphate (Phos-Nak) oral powder 2 Packet 2 Packet, Oral, ONCE, On Sun08/22/23 at 0545, For 1 dose, Mix 1 packet in 2.5 ounces (75 mL) of water, stir well and administer promptly. 1 packet contains Phosphorus 250 mg (~8 mMoles) + potassium 280 mg (~7.125 mEq) + sodium 160mg (~7.125 mEq) Given 08/22/2023 5:49 AM EDT 2 Packets potassium chloride ER tab 40 mEq 40 mEq, Oral, ONCE, On Sun08/23/23 at 0645, For 1 dose, This med should NOT be Crushed or Chewed Given 08/23/2023 6:15 AM EDT 40 mEq Povidone-Iodine nasal swab 4 Swab 4 Swab, Nasal, PREOP, First dose on Sun08/17/23 at 1300, Last dose on Sun08/17/23 at 1300, For 1 dose, Tilt the bottle slightly, dip one swab into solution and stir vigorously for 10 seconds. Withdraw the swab slowly to avoid wiping solution off during removal. Insert swab comfortably into one nostril and rotate for 15 seconds, covering all surfaces. Then focus on the inside tip of nostril and rotate for an additional 15 seconds. Using a new swab, Repeat above steps in the other nostril (Swab 2). Repeat the application in both nostrils using a fresh swab each times (Swab 3 and 4)., Pre-Op Given 08/17/2023 1:17 PM EDT 4 Swabs vitamins plus 1 mg folic acid tab 1 Tablet 1 Tablet, Oral, DAILY NOON, First dose on 08/18/23 at 1200, Until Discontinued Given 08/25/2023 12:00 PM EDT 1 Ta blet Given 08/24/2023 12:50 PM EDT 1 Tablet Given 08/23/2023 11:01 AM EDT 1 Tablet senna (Senokot) 2 Tablet 2 Tablet, Oral, Daily(AM), First dose on 08/18/23 at 0900, Until Discontinued, Hold if patient have loose stool or frequent bowel movements Given 08/20/2023 7:35 AM EDT 2 Tablets Given 08/19/2023 8:26 AM EDT 2 Tablets Given 08/18/2023 8:51 AM EDT 2 Tablets senna (Senokot) 2 Tablet 2 Tablet, Oral, BID (.AM/PM), First dose (after last modification) on 08/20/23 at 2100, Until Discontinued, Hold if patient have loose stool or frequent bowel movements Given 08/26/2023 8:51 AM EDT 2 Tablets Given 08/25/2023 8:55 AM EDT 2 Tablets Given 08/24/2023 10:51 PM EDT 2 Tablets sodium chloride 0.9 % flush peripheral spencer 3 mL 3 mL, IV Push, QSHIFT, First dose on 08/18/23 at 0000, Until Discontinued, Do not flush if lock, PICC, or central line not in place; IV infusing or unable to flush. Given 08/26/2023 8:00 AM EDT 3 mL Given 08/26/2023 12:00 AM EDT 3 mL Given 08/25/2023 4:00 PM EDT 3 mL sodium PHOSphate 30 mmol in NSS 250 mL (NaPhos) ivpb 30 mmol, Peripheral IV, ONCE, 1 dose, On 08/19/23 at 1245 Rate Verify 08/19/2023 5:00 PM EDT 6 mmol/hr 53 mL/hr Rate Verify 08/19/2023 4:00 PM EDT 6 mmol/hr 53 mL/hr Rate Verify 08/19/2023 3:00 PM EDT 6 mmol/hr 53 mL/hr traMADol ER (Ultram ER) tab 100 mg 100 mg, Oral, PREOP, First dose on Sun08/17/23 at 1300, Last dose on Sun08/17/23 at 1300, For 1 dose, Administer 60 minutes prior to OR, Pre-Op Given 08/17/2023 1:09 PM EDT 100 mg documented in this encounter Active and Recently Administered Medications Times are shown in EDT. Scheduled Medication Order 08/24/2023 08/25/2023 08/26/2023 Acetaminophen (Tylenol) tab 650 mg (COMPLETED) 650 mg, Oral, Q6H, First dose (after last modification) on [facility] 08/23/23 at 1200, Last dose on 08/25/23 at 0600, For 2 days, Avoid in patients with severe hepatic impairment or severe active liver disease. Use for 5 days 0611 (Given - Provider: Edy Kennedy RN)1250 (Given - Provider: Haile Dale RN)1719 (Given - Provider: Haile Dale RN)2251 (Given - Provider: Edy Kennedy RN) 0510 (Given - Provider: Edy Kennedy RN) amitriptyline (Elavil) tab 75 mg 75 mg, Oral, QHS, First dose on 08/18/23 at 2200, Until Discontinued 2250 (Given - Provider: Edy Kennedy RN) 2132 (Given - Provider: Bev Beverly RN) aspirin enteric coated tab 81 mg 81 mg, Oral, BID (.AM/PM), First dose (after last modification) on 08/18/23 at 0900, Last dose on 09/16/23 at 2100, For 30 days, FOR VTE PROPHYLAXIS 0750 (Given - Provider: Haile Dale RN)2250 (Given - Provider: Edy Kennedy RN) 0855 (Given - Provider: Haile Dale RN)2134 (Given - Provider: Bev Beverly RN) 0851 (Given - Provider: Haile Dale RN) atorvaSTATin (Lipitor) tab 80 mg 80 mg, Oral, HS, First dose on Sun08/18/23 at 2200, Until Discontinued 225 (Given - Provider: Edy Kennedy RN) 213 (Given - Provider: Bev Beverly RN) CYANOCOBALAMIN (vitamin B-12) tab 1,000 mcg 1,000 mcg, Oral, Daily(AM), First dose on Sun08/20/23 at 0900, Until Discontinued 0750 (Given - Provider: Haile Dale RN) 0855 (Given - Provider: Haile Dale RN) 0851 (Given - Provider: Haile Dale RN) Docusate Sodium (Colace) cap 100 mg 100 mg, Oral, BID (.AM/PM), First dose on Sun08/17/23 at 2100, Until Discontinued, For oral administration ONLY, if route of administration is other than oral and alternative product must be ordered. 0900 (Given - Provider: Haile Dale RN)225 (Given - Provider: Edy Kennedy RN) 0856 (Given - Provider: Haile Dale RN)2100 (Not Given - Provider: Bev Beverly RN - Reason: Refused-Notify Provider) 0851 (Given - Provider: Haile Dale RN) doxycycline tab 100 mg 100 mg, Oral, Q12H, First dose on Sun08/18/23 at 0900, Last dose on Sun08/27/23 at 2100, For 10 days 0750 (Given - Provider: Haile Dale RN)2251 (Given - Provider: Edy Kennedy RN) 0855 (Given - Provider: Haile Dale RN)2134 (Given - Provider: Bev Beverly RN) 0851 (Given - Provider: Haile Dale RN) hEParin inj 5,000 Units 5,000 Units, Subcutaneous, Q8H, First dose on Sun08/21/23 at 1400, Until Discontinued 0611 (Given - Provider: Edy Kennedy RN)1250 (Given - Provider: Haile Dale RN)2251 (Given - Provider: Edy Kennedy RN) 0510 (Given - Provider: Edy Kennedy RN)1400 (Given - Provider: Haile Dale RN)2133 (Given - Provider: Bev Beverly RN) 0605 (Given - Provider: Bev Beverly RN) Letrozole (Femara) tab 2.5 mg 2.5 mg, Oral, Daily(AM), First dose on Sun08/18/23 at 1245, Until Discontinued 0751 (Given - Provider: Haile Dale RN) 0856 (Given - Provider: Haile Dale RN) 0851 (Given - Provider: Haile Dale RN) Nadolol (Corgard) tab 20 mg 20 mg, Oral, HS, First dose on Sun08/22/23 at 2200, Until Discontinued, Hold for HR less than 60 or SBP below 100 and notify service if dose is held 225 (Given - Provider: Edy Kennedy RN) 213 (Given - Provider: Bev Beverly RN) Polyethylene Glycol 3350 (Miralax) oral powder 34 g 34 g (2 Packet), Oral, BID (0900,2100), First dose (after last modification) on Sun08/20/23 at 2100, Until Discontinued, Mix in 8 oz of water, juice, soda, coffee, or tea. 0750 (Given - Provider: Haile Dale RN)2251 (Given - Provider: Edy Kennedy RN) 0856 (Given - Provider: Haile Dale RN)2100 (Not Given - Provider: Bev Beverly RN - Reason: Refused-Notify Provider) 0851 (Given - Provider: Haile Dale RN) vitamins plus 1 mg folic acid tab 1 Tablet 1 Tablet, Oral, DAILY NOON, First dose on Sun08/18/23 at 1200, Until Discontinued 1250 (Given - Provider: Haile Dale RN) 1200 (Given - Provider: Haile Dale RN) senna (Senokot) 2 Tablet 2 Tablet, Oral, BID (.AM/PM), First dose (after last modification) on Sun08/20/23 at 2100, Until Discontinued, Hold if patient have loose stool or frequent bowel movements 0750 (Given - Provider: Haile Dale RN)2251 (Given - Provider: Edy Kennedy RN) 0855 (Given - Provider: Haile Dale RN)2100 (Not Given - Provider: Bev Beverly RN - Reason: Refused-Notify Provider) 0851 (Given - Provider: Haile Dale RN) sodium chloride 0.9 % flush peripheral spencer 3 mL 3 mL, IV Push, QSHIFT, First dose on 08/18/23 at 0000, Until Discontinued, Do not flush if lock, PICC, or central line not in place; IV infusing or unable to flush. 0000 (Given - Provider: Edy Kennedy RN)0800 (Given - Provider: Haile Dale RN)1600 (Given - Provider: Haile Dale RN) 0000 (Given - Provider: Edy Kennedy RN)0800 (Given - Provider: Haile Dale RN)1600 (Given - Provider: Haile Dale RN) 0000 (Given - Provider: Bev Beverly RN)0800 (Given - Provider: [place]ile Dale RN) PRN Medication Order 08/24/2023 08/25/2023 08/26/2023 Acetaminophen (Tylenol) tab 650 mg 650 mg, Oral, Q4H PRN Pain, Mild, Pain, Moderate, Starting on 08/25/23 at 1553, Until 08/26/23 at 1418, Maximum of 4 grams (4000 mg) per day. Menthol ([place]) cough drop 1 Lozenge 1 Lozenge, Oral, Q2H PRN Sore throat, Starting on Sun08/17/23 at 1901, Until 08/26/23 at 1418 naloxone (Narcan) 0.4 MG/ML inj 0.08 mg 0.08 mg, IV Push, PRN Other, If patient is oversedated or Respiratory Rate less than 8, Starting on Sun08/17/23 at 1901, Until 08/26/23 at 1418, Call provider if patient is oversedated or Respiratory Rate is less than 8 ondansetron (Zofran) inj 4 mg(Linked Group 1) 4 mg, IV Push, Q6H PRN Other, May use for nausea or vomiting if patient unable to take oral ondansetron, Starting on Sun08/17/23 at 1901, Until 08/26/23 at 1418 ondansetron ODT (Zofran) tab 4 mg(Linked Group 1) 4 mg, On Tongue, Q6H PRN Nausea, Vomiting, Starting on Sun08/17/23 at 1901, Until 08/26/23 at 1418 oxyCODONE (Oxy IR) tab 10 mg (CANCELED) 10 mg, Oral, Q4H PRN Pain, Severe, Starting on 08/21/23 at 1518, Until 08/25/23 at 1554, Hold for respiratory depression 0750 (Given - Provider: Haile Dale RN) oxyCODONE (Oxy IR) tab 5 mg (CANCELED) 5 mg, Oral, Q4H PRN Pain, Moderate, Starting on Sun08/17/23 at 1901, Until 08/25/23 at 1554 1250 (Given - Provider: Haile Dale RN)2251 (Given - Provider: Edy Kennedy RN) 0856 (Given - Provider: Haile Dale, ZACKARY) oxyCODONE (Oxy IR) tab 5 mg 5 mg, Oral, Q4H PRN Pain, Severe, Starting on 08/25/23 at 1553, Until 08/26/23 at 1418 1609 (Given - Provider: Haile Dale, ZACKARY) Linked Groups Order Group 1: ondansetron ODT (Zofran) tab 4 mgJump to med 4 mg, On Tongue, Q6H PRN Nausea, Vomiting, Starting on Sun08/17/23 at 1901, Until 08/26/23 at 1418 Or ondansetron (Zofran) inj 4 mgJump to med 4 mg, IV Push, Q6H PRN Other, May use for nausea or vomiting if patient unable to take oral ondansetron, Starting on Sun08/17/23 at 1901, Until 08/26/23 at 1418 documented in this encounter Advance Directives * [...] Power of Attor ludmila? No Care Teams Field Administrator Relationship Specialty Start Date End Date José Dougherty III, MD [address] [facility] [place] [address] PCP - General 10/25/1995 documented as of this encounter
--- OUTSIDE RECORDS SUMMARY | 2023-09-22 13:24 | External Medical Summary ---
Author Name Unknown Address Unknown Organization K09:[facility] [place] [address] Laboratory Report Ordering Provider Test Date Status HY,DEPAMPHILIS 08/27/2023 06:05:53 Final Observation Date Value Abnormality Reference (Units ) Status WBC, Total 08/27/2023 06:05:53 11.17 Above high normal 4 .00-10.80 (K/uL) Final RBC 08/27/2023 06:05:53 2.78 3.85-5.15 (M/uL) Final Hemoglobin 08/27/2023 06:05:53 8.1 Below low normal 12 .0-15.3 (g/dL) Final HCT 08/27/2023 06:05:53 26.9 Below low normal 36. 0-45.2 (%) Final MCV 08/27/2023 06:05:53 96.8 81.5-97.5 (fL) Final MCH 08/27/2023 06:05:53 29.1 27.0-34.0 (pg) Final MCHC 08/27/2023 06:05:53 30.1 32.0-36.0 (g/dL) Final RDW 08/27/2023 06:05:53 19.0 11.5-15.5 (%) Final Platelets 08/27/2023 06:05:53 509 Above high normal 14 0-400 (K/uL) Final MPV 08/27/2023 06:05:53 9.8 6.6-11.1 ( fL) Final Performing Location [facility] [place] [address]
--- OUTSIDE RECORDS SUMMARY | 2023-09-22 13:24 | External Medical Summary ---
Author Name Unknown Address Unknown Organization K01:LABORATORY [facility] - [address] [place] [address] Laboratory Report Ordering Provider Test Date Status DAVID LUJAN 08/26/2023 04:48:00 Final Observation Date Value Abnormality Reference (Units ) Status WBC, Total 08/26/2023 04:48:00 18.11 Above high normal 4.00-10.80 (K/uL) Final RBC 08/26/2023 04:48:00 2.73 3.85-5.15 (M/uL) Final Hemoglobin 08/26/2023 04:48:00 8.5 Below low normal 12.0-15.3 (g/dL) Final HCT 08/26/2023 04:48:00 26.0 Below low normal 36.0-45.2 (%) Final MCV 08/26/2023 04:48:00 95.2 81.5-97.5 (fL) Final MCH 08/26/2023 04:48:00 31.1 27.0-34.0 (pg) Final MCHC 08/26/2023 04:48:00 32.7 32.0-36.0 (g/dL) Final RDW 08/26/2023 04:48:00 18.2 11.5-15.5 (%) Final Platelets 08/26/2023 04:48:00 420 Above high normal 140-400 (K/uL) Final MPV 08/26/2023 04:48:00 9.8 6.6-11.1 (fL) Final Nucleated erythrocytes/100 leukocytes [Ratio] in Blood by Automated count 08/26/2023 04:48:00 0 <=0 (/100 WBCs) Final Performing Location [facility]ORY [facility] - [address] [place] [address]
--- OUTSIDE RECORDS SUMMARY | 2023-09-22 13:24 | External Medical Summary | Summary of Care ---
Author Name Unknown Organization [facility] Address [address] [place] [address] Phone [phone] Care Team Providers Care Meat Molder Name Role Phone Farhat MEEHAN MD, Deon Cerna Primary Care Provider [phone] Reason for Visit * Reason Onset Date Comments [facility]: Screening 08/28/2023 Encounter Details Date Type Department Care Team (Late st Contact Info) Description 08/28/2023 Telephone [facility], [facility] [address] [facility] [place] [address] [facility], Nurse [facility] [address] [place] [address] [facility]: Screening [...] 08/17/19 24 Migraine variant 06/14/2023 Atherosclerosis of [place] ronary artery without angina pectoris 06/14/2023 [...] mRNA, LNP-s, No Pre serve, 2-Dose Series (HexAirbot) 01/25/2021,2020,05/25/2020 COVID-19, MRNA-LNP, 23-24, P F, 30 MCG/0.3 mL, 12 YRS AND ABOVE, IM (PFIZER-Comirnaty) 12/21/2022 Pneumococcal Conjugate Vacci ne, 20-valent (Keaxniq79) 10/13/2021 Pneumococcal Polysaccharide PPV23 (Pneumovax) 04/14/2020 RSV [...] for [facility] request to [facility] leadership Awaiting their decision documented in this encounter Plan of Treatment Upcoming Encounters Date Type Department Care Team (Late st Contact Info) Description 09/12/2023 10:00 AM EDT Office Visit Orthopaedics, [place] [address] [place] [address] Junior Chavez PA-C [address] [place] [address] 11/14/2023 9:00 AM EDT Office Visit Family Practice [facility] [address] [facility] [place] [address] Deon Dougherty III, MD 200 [facility] [place] [address] 12/18/2023 8:30 AM EDT Office Visit Cardiology, [facility] [address] [place] [address] [place], [address] [place] [address] 03/20/2024 2:00 PM EST Laboratory Laboratory [facility] [address] [place] [phone] [facility] [address] [place] [address] 03/27/2024 2:00 PM EST Office Visit Hematology/Oncology [facility] [place] [address] [place] [phone] Lizbeth Madison CRNP [address] [facility] [place] [id number] Health Maintenance Due Date Last Done Comments [...] Screening 06/07/2024 06/08/2023 CKD PHOS USE SMARTSET 04251 08/25/202408/10, 08/25/2023, 08/24/2023, Additional history exists CKD HGB USE SMARTSET 75343 08/26/202408/26, 08/26/2023, 08/25/2023, Additional history exists Colonoscopy [...] this encounter Medical Devices Implanted Type Area Policy Cancellation Clerk Device Identifier Shelf Expiration Date Model / Serial / Lot Valve Transcath Resilia 23mm - [id number] Implanted:Qty: 1 on 06/05/2023 by Mat Lucia MD at [facility] [employer] [id number] 11/12/2023 [id number] / / Screw Bone 6.5x30mm - [id number] Implanted:Qty: 1 on 08/17/2023 by Chito Cochran MD at [facility] Right: Hip ALEYDA : ORTHOPAEDICS 05/22/2028 6116-7882 / / HFF Screw Low Profile 6.5uvh47gq - [id number] Implanted:Qty: 1 on 08/17/2023 by Chito Cochran MD at [facility] Right: Hip ALEYDA : ORTHOPAEDICS 03/31/2028 5154-5575 / / [id number] Implant Stem Hip Colr High 2 - [id number] Implanted:Qty: 1 on 08/17/2023 by Chito Cochran MD at [facility] Right: Hip ALEYDA : ORTHOPAEDICS 03/20/2027 2542-1065 / / [id number] Hip Steven Chavira 36 25 - [id number] Implanted:Qty: 1 on 08/17/2023 by Chito Cochran MD at [facility] Right: Hip ALEYDA : ORTHOPAEDICS 03/19/2028 6570-0-436 / / [id number] Hip Shell Trident X3 10 36x50 - [id number] Implanted:Qty: 1 on 08/17/2023 by Chito Cochran MD at [facility] Left: Hip ALEYDA : ORTHOPAEDICS 07/10/2028 763-10-36E / / [id number] Implant Hip Acetab Shell 52e - [id number] Implanted:Qty: 1 on 08/17/2023 by Chito Cochran MD at [facility] Left: Hip ALEYDA : ORTHOPAEDICS 07/07/2028 709-04-52E / / [id number] 6.5mm Low Profile Hex Screw 6 - [id number] Implanted:Qty: 1 on 08/17/2023 by Chito Cochran MD at [facility] Left: Hip ALEYDA : ORTHOPAEDICS 04/24/2028 9615-4547 / / [id number] Screw Low Profile 6.9exy27dr - [id number] Implanted:Qty: 1 on 08/17/2023 by Chito Cochran MD at [facility] Left: Hip ALEYDA : ORTHOPAEDICS 04/16/2028 [id number] / / [id number] Implant Stem Hip Colr High 1 - [id number] Implanted:Qty: 1 on 08/17/2023 by Chito Cochran MD at [facility] Left: Hip ALEYDA : ORTHOPAEDICS 12/13/2027 3243-5799 / / [id number] Hip Steven Chavira 36 25 - [id number] Implanted:Qty: 1 on 08/17/2023 by Chito Cochran MD at [facility] Left: Hip ALEYDA : ORTHOPAEDICS 01/30/2028 6570-0-436 / / [id number] Hip Shell Trident X3 10 36x50 - [id number] Implanted:Qty: 1 on 08/17/2023 by Chito Cochran MD at [facility] Right: Hip ALEYDA : ORTHOPAEDICS 05/03/2028 763-10-36E / / [id number] Implant Hip Acetab Shell 52e - [id number] Implanted:Qty: 1 on 08/17/2023 by Chito Cochran MD at [facility] Right: Hip ALEYDA : ORTHOPAEDICS 06/21/2028 709-04-52E / / [id number] documented as of this encounter Advance Directives [...] Power of Attor ludmila? No Care Teams Meat Molder Relationship Specialty Start Date End Date Deon Dougherty III, MD [address] [facility] [place] [address] PCP - General 10/25/1995 documented as of this encounter
--- OUTSIDE RECORDS SUMMARY | 2023-09-22 13:24 | External Medical Summary ---
Author Name Unknown Address Unknown Organization K01:LABORATORY [facility] - [address] [place] [address] Laboratory Report Ordering Provider Test Date Status PETTY HENRIK 08/26/2023 04:48:00 Final Observation Date Value Abnormality Reference (Units ) Status BUN 08/26/2023 04:48:00 37 Above high normal 6-20 (mg/dL) Final Creatinine 08/26/2023 04:48:00 1.1 Above high normal 0.5-1.0 (mg/dL) Final Glomerular filtration rate/1.73 sq M.predicted [Volume Rate/Area] in Serum, Plasma or Blood by Creatinine-based formula (CKD-EPI) 08/26/2023 04:48:00 54 Below low normal >=60 (mL/min) Final eGFR is calculated based on the CKD-EPI 2020 equation Sodium 08/26/2023 04:48:00 139 135-146 (m mol/L) Final Potassium 08/26/2023 04:48:00 4.7 3.5-5.1 (m mol/L) Final Cl 08/26/2023 04:48:00 107 98-107 (mm ol/L) Final CO2 08/26/2023 04:48:00 21 Below low normal 22- 32 (mmol/L) Final Anion gap 08/26/2023 04:48:00 11 7-15 (mmol /L) Final Glucose 08/26/2023 04:48:00 122 Above high normal 70 -120 (mg/dL) Final Calcium 08/26/2023 04:48:00 8.6 8.4-10.2 ( mg/dL) Final Performing Location LABORATORY [facility] - [address] [place] [address]
--- OUTSIDE RECORDS SUMMARY | 2023-09-22 13:24 | External Medical Summary ---
Author Name Unknown Address Unknown Organization K09:[facility] [place] [address] Laboratory Report Ordering Provider Test Date Status HY,DEPAMPHILIS 08/27/2023 06:05:53 Final Observation Date Value Abnormality Reference (Units ) Status BUN 08/27/2023 06:05:53 32 Above high normal 6-20 (mg/dL) Final Creatinine 08/27/2023 06:05:53 1.0 0.5-1.0 (mg/dL) Final Glomerular filtration rate/1.73 sq M.predicted [Volume Rate/Area] in Serum, Plasma or Blood by Creatinine-based formula (CKD-EPI) 08/27/2023 06:05:53 60 >=60 (mL/min) Final eGFR is calculated based on the CKD-EPI 2020 equation Sodium 08/27/2023 06:05:53 140 135-146 (m mol/L) Final Potassium 08/27/2023 06:05:53 5.0 3.5-5.1 (m mol/L) Final Cl 08/27/2023 06:05:53 107 98-107 (mm ol/L) Final CO2 08/27/2023 06:05:53 22 22-32 (mmo l/L) Final Anion gap 08/27/2023 06:05:53 11 7-15 (mmol /L) Final Glucose 08/27/2023 06:05:53 106 70-120 (mg /dL) Final Calcium 08/27/2023 06:05:53 8.6 8.4-10.2 ( mg/dL) Final Performing Location [facility] [place] [address]
--- OUTSIDE RECORDS SUMMARY | 2023-09-22 13:24 | External Medical Summary ---
Author Name Unknown Address Unknown Organization K01:[facility] - [address] [place] [address] Laboratory Report Ordering Provider Test Date Status PETTY HENRIK 08/26/2023 04:48:00 Final Observation Date Value Abnormality Reference (Units ) Status Phosphate 08/26/2023 04:48:00 3.4 2.5-4.8 (m g/dL) Final Performing Location [facility] - [address] [place] [address]
--- OUTSIDE RECORDS SUMMARY | 2023-09-22 13:24 | External Medical Summary | Summary of Care ---
Author Name Unknown Organization [facility] Address [address] [place] [address] Phone [phone] Care Team Providers Care Operations Mgr Name Role Phone Farhat MEEHAN MD, Deon Cerna Primary Care Provider [phone] Encounter Details Date Type Department Care Team (Late st Contact Info) Description 08/27/2023 Population Health External Data Unspecified Department Allergies Active Allergy Reactions Criticality Noted Date Comments Dichloralphenazone 08/15/2022 Other Reaction(s): RASH Isometheptene 08/15/2022 Other Reaction(s): RASH Midrin 07/21/1999 Red and ictchy in the face documented as of this encounter (statuses as of 08/27/2023) Medications Medication Sig Dispensed Refills Start Date [...] as of this encounter (statuses as of 08/27/2023) Active Problems Problem Noted Date Diagnosed Date Status post bilateral hip replacements Degenerative joint disease (DJD) of hip 08/17/19 Migraine variant 06/14/2023 Atherosclerosis of [place] ronary artery without angina pectoris 06/14/2023 [...] as of this encounter (statuses as of 08/27/2023) Resolved Problems Problem Noted Date Diagnosed Date [...] as of this encounter (statuses as of 08/27/2023) Immunizations Name Administration Dates Next Due COVID-19 mRNA, LNP-s, No Pre serve, 2-Dose Series ([place]) 01/25/2021,2020,05/25/2020 COVID-19, MRNA-LNP, 23-24, P F, 30 MCG/0.3 mL, 12 YRS AND ABOVE, IM (PFIZER-Comirnaty) 12/21/2022 Pneumococcal Conjugate Vacci ne, 20-valent (Rwewxab58) 10/13/2021 Pneumococcal Polysaccharide PPV23 (Pneumovax) 04/14/2020 RSV [...] 09/12/2023 10:00 AM EDT Office Visit Orthopaedics, [place] [address] [place] [address] Junior Chavez PA-C [address] [place] [address] 11/14/2023 9:00 AM EDT Office Visit Family Practice [facility] [address] [place] [address] Deon Dougherty III, MD [address] [place] [address] 12/18/2023 8:30 AM EDT Office Visit Cardiology, [facility] [address] [place] [address] [place], [address] [place] [address] 03/20/2024 2:00 PM EST Laboratory Laboratory [facility] [address] [place] [phone] Liz [facility] 200 [facility] [place] [address] 03/27/2024 2:00 PM EST Office Visit Hematology/Oncology [facility] Liz [place] [address] [place] [phone] Lizbeth Madison, WILLIAM [address] [facility] [place] [address] Health Maintenance Due Date Last Done Comments Cologuard 06/16/1999 Fecal Occult Blood Test 06/16/1999 Sigmoidoscopy 06/16/1999 COVID-19 Vaccine ( season) 2023 12/21/2022, 01/25/2021, 2020, Additional history exists Diabetic Eye Exam 07/11/2023 07/10/2022, , 07/10/2022, Additional history exists HbA1c 02/08/2024 08/08/2023, 03/0 03/2023, 11/08/2022, Additional history exists GFR 02/25/2024 08/27/2023, 08/10, 08/25/2023, Additional history exists Mammogram 04/23/2024 04/23/2023, 04/12, 04/19/2022, Additional history exists Albumin/Creatinine Ratio 05/10/2024 024, 04/17/2022, 04/15/2021, Additional history exists Diabetic Foot Exam 05/10/2024 05/11/2023, 0 04/17/2022, 04/15/2021 Depression Screening 06/07/2024 06/08/2023 CKD PHOS USE SMARTSET 68458 08/25/202408/10, 08/25/2023, 08/24/2023, Additional history exists CKD HGB USE SMARTSET 06039 08/26/202408/26, 08/26/2023, 08/25/2023, Additional history exists Colonoscopy [...] this encounter Medical Devices Implanted Type Area Motor Electrician Device Identifier Shelf Expiration Date Model / Serial / Lot Valve Transcath Resilia 23mm - [id number] Implanted:Qty: 1 on 06/05/2023 by Mat Lucia MD at [facility] [employer] [id number] 11/12/2023 [id number] / / Screw Bone 6.5x30mm - [id number] Implanted:Qty: 1 on 08/17/2023 by Chito Cochran MD at [facility] Right: Hip ALEYDA : ORTHOPAEDICS 05/22/2028 0086-0100 / / HFF Screw Low Profile 6.7dfw72nm - [id number] Implanted:Qty: 1 on 08/17/2023 by Chito Cochran MD at [facility] Right: Hip ALEYDA : ORTHOPAEDICS 03/31/2028 7679-3149 / / [id number] Implant Stem Hip Colr High 2 - [id number] Implanted:Qty: 1 on 08/17/2023 by Chito Cochran MD at [facility] Right: Hip ALEYDA : ORTHOPAEDICS 03/20/2027 5709-8193 / / [id number] Hip Hd Ricardo Chavira 36 25 - [id number] Implanted:Qty: 1 on 08/17/2023 by Chito Cochran MD at [facility] Right: Hip ALEYDA : ORTHOPAEDICS 03/19/2028 6570-0-436 / / [id number] Hip Shell Trident X3 10 36x50 - [id number] Implanted:Qty: 1 on 08/17/2023 by Chito Cochran MD at [facility] Left: Hip ALEYDA : ORTHOPAEDICS 07/10/2028 763-10-36E / / [id number] Implant Hip Acetab Shell 52e - [id number] Implanted:Qty: 1 on 08/17/2023 by Chito Cochran MD at [facility] Left: Hip ALEYDA : ORTHOPAEDICS 07/07/2028 709-04-52E / / [id number] 6.5mm Low Profile Hex Screw 6 - [id number] Implanted:Qty: 1 on 08/17/2023 by Chito Cochran MD at [facility] Left: Hip ALEYDA : ORTHOPAEDICS 04/24/2028 6315-0056 / / [id number] Screw Low Profile 6.4kuc25be - [id number] Implanted:Qty: 1 on 08/17/2023 by Chito Cochran MD at [facility] Left: Hip ALEYDA : ORTHOPAEDICS 04/16/2028 1239-9088 / / [id number] Implant Stem Hip Colr High 1 - [id number] Implanted:Qty: 1 on 08/17/2023 by Chito Cochran MD at [facility] Left: Hip ALEYDA : ORTHOPAEDICS 12/13/2027 9074-9669 / / [id number] Hip Hd Ricardo Chavira 36 25 - [id number] Implanted:Qty: 1 on 08/17/2023 by Chito Cochran MD at [facility] Left: Hip ALEYDA : ORTHOPAEDICS 01/30/2028 6570-0-436 / / [id number] Hip Shell Trident X3 10 36x50 - [id number] Implanted:Qty: 1 on 08/17/2023 by Chito Cochran MD at [facility] Right: Hip ALEYDA : ORTHOPAEDICS 05/03/2028 763-10-36E / / [id number] Implant Hip Acetab Shell 52e - [id number] Implanted:Qty: 1 on 08/17/2023 by Chito Cochran MD at [facility] Right: Hip ALEYDA : ORTHOPAEDICS 06/21/2028 709-04-52E / / [id number] documented as of this encounter Advance Directives [...] Power of Attor ludmila? No Care Teams Operations Mgr Relationship Specialty Start Date End Date Deon Dougherty III, MD [address] [facility] [place] [address] PCP - General 10/25/1995 documented as of this encounter
--- OUTSIDE RECORDS SUMMARY | 2023-09-22 13:25 | External Medical Summary ---
Author Name Unknown Address Unknown Organization K01:[facility] - [address] [place] [address] Laboratory Report Ordering Provider Test Date Status PETTY HENRIK 08/22/2023 04:38:00 Final Observation Date Value Abnormality Reference (Units ) Status Phosphate 08/22/2023 04:38:00 2.5 2.5-4.8 (m g/dL) Final Performing Location [facility] - [address] [place] [address]
--- OUTSIDE RECORDS SUMMARY | 2023-09-22 13:25 | External Medical Summary ---
Author Name Unknown Address Unknown Organization : Laboratory Report Ordering Provider Test Date Status JOHN RIVERA 08/20/2023 11:20:33 Final Observation Date Value Abnormality Reference (Units ) Status Glucose Point of Care 08/20/2023 11:20:33 77 70-120 (mg/dL) Final Performing Location
--- OUTSIDE RECORDS SUMMARY | 2023-09-22 13:25 | External Medical Summary | Summary of Care ---
Author Name Unknown Organization [facility] Address [address] [place] [address] Phone [phone] Care Team Providers Care Moisture Machine Tender Name Role Phone Farhat MEEHAN MD, Deon Cerna Primary Care Provider [phone] Encounter Details Date Type Department Care Team (Late st Contact Info) Description 08/20/2023 Population Health External Data Unspecified Department Allergies Active Allergy Reactions Criticality Noted Date Comments Dichloralphenazone 08/15/2022 Other Reaction(s): RASH Isometheptene 08/15/2022 Other Reaction(s): RASH Midrin 07/21/1999 Red and ictchy in the face documented as of this encounter (statuses as of 08/20/2023) Medications Medication Sig Dispensed Refills Start Date End Date Status oxyCODONE HCl 5 MG Oral Tablet (Oxy [...] Tablet before bedtime. 168 Tablet 08/17/2023 Active OCUVITE-LUTEIN PO CAPS One capsule twice daily Suspended RIBOFLAVIN (VITAMIN B-2) 100 MG Tablet Take 2 Tablets by mouth in the morning and 2 Tablets before bedtime. Suspended triamcinolone acetonide (ARISTOCORT) 0.1 % creamIndications :Other psoriasis APPLY TWICE DAILY DIRECTED 30 g 5 07/02/2018 Suspended Additional Information Letrozole 2.5 MG Oral Tablet (Femara)Indicati ons:Breast carcinoma, female, right (HCC) Take 1 Tablet by mouth in the morning. 90 Tablet 3 09/25/2022 Suspended Additional Information Diclofenac Sodium 1 % External Gel (Voltaren) Apply topically to affected area 3 times a day. Apply to 5 th mtp head 11/08/2022 Suspended Additional Information Patient not taking.Reported on 08/08/2023 Amitriptyline HCl 75 MG Oral Tablet (Elavil) TAKE ONE TABLET BY MOUTH AT BEDTIME 90 Tablet 1 04/16/2023 04/15/2024 Suspended Additional Information Amoxicillin 500 MG Oral Capsule (Amoxil) Take 4 capsules 1 hour prior to any dental work 4 Capsule 4 06/11/2023 Suspended Additional Information Indapamide 1.25 MG Oral TabletIndication s:HTN, goal below 140/90 Take 1 Tablet by mouth in the morning. 90 Tablet 1 06/22/2023 Suspended Additional Information Calmoseptine 0.44-20.6 % External Ointment (Menthol-Zinc Oxide) Apply topically to affected area every 6 hours as needed for Wound Care. Apply to pressure sore on buttock. 113 g 5 07/02/2023 Suspended Additional Information Cyclobenzaprine HCl 10 MG Oral Tablet (Flexeril)Indica tions:Migraine variant TAKE ONE TABLET BY MOUTH THREE TIMES A DAY -- IN THE MORNING , NOON, AND AT BEDTIME 270 Tablet 1 07/06/2023 07/05/2024 Suspended Additional Information Atorvastatin Calcium 80 MG Oral Tablet (Lipitor)Indicat ions:Dyslipidemi a, goal to be determined Take 1 Tablet by mouth at bedtime. 90 Tablet 3 07/09/2023 Suspended Additional Information Nadolol 20 MG Oral Tablet (Corgard)Indicat ions:Migraine variant Take 1 Tablet by mouth at bedtime. 90 Tablet 3 07/09/2023 Suspended Additional Information Diclofenac Sodium 1 % External Gel (Voltaren) Apply topically to affected area 4 times a day. Apply to areas outside both hips/troch bursitis 350 g 6 08/08/2023 Suspended Additional Information documented as of this encounter (statuses as of 08/20/2023) Active Problems Problem Noted Date Diagnosed Date Hypotension due to hypovolemia 08/18/2023 Acute blood loss anemia 08/17/2023 Degenerative joint disease (DJD) of hip 08/17/19 Shock 08/17/2023 Metabolic acidosis 08/17/2023 Primary osteoarthritis of both hips 08/08/2023 Migraine variant 06/14/2023 Atherosclerosis of poarch co ronary artery without angina pectoris 06/14/2023 Atrioventricular (AV) dissociation 06/06/2023 Conduction disorder of the heart 06/06/2023 RBBB (right bundle branch block) 06/06/2023 S/P TAVR (transcatheter aortic valve replacement ) 06/05/2023 History of breast cancer 11/08/2022 Type 2 diabetes mellitus with diabetic polyneuro lesley 04/15/2021 Hypertensive kidney disease with stage 3a chronic kidney disease 10/13/2020 Diabetes mellitus without complication Chronic kidney disease, stage 3a 04/19/2020 Overview: Per CKD protocol Other psoriasis 04/14/2020 Elevated homocysteine 07/24/2018 History [...] as of this encounter (statuses as of 08/20/2023) Resolved Problems Problem Noted Date Diagnosed Date Resolved Date Migraine variant 04/15/2021 05/11/2023 Migraine without aura, intractable 10/13/2020 10/13/2020 Homocystinuria 04/14/2020 01/17/2023 Prediabetes 08/19/2018 10/13/2020 Overview: [...] as of this encounter (statuses as of 08/20/2023) Immunizations Name Administration Dates Next Due COVID-19 mRNA, LNP-s, No Pre serve, 2-Dose Series ([employer]) 01/25/2021,2020,05/25/2020 COVID-19, MRNA-LNP, 23-24, P F, 30 MCG/0.3 mL, 12 YRS AND ABOVE, IM (PFIZER-Comirnaty) 12/21/2022 Pneumococcal Conjugate Vacci ne, 20-valent ([id number]) 10/13/2021 Pneumococcal Polysaccharide PPV23 (Pneumovax) 04/14/2020 RSV [...] 09/12/2023 10:00 AM EDT Office Visit Orthopaedics, [place] [address] [place] [address] Junior Chavez PA-C [address] [place] [address] 11/14/2023 9:00 AM EDT Office Visit Family Practice [facility] [address] [place] [address] Deon Dougherty III, MD [address] [place] [address] 12/18/2023 8:30 AM EDT Office Visit Cardiology, [facility] [address] [place] [address] [place], [address] [place] [address] 03/20/2024 2:00 PM EST Laboratory Laboratory [facility] [address] [place] [address] [id number] [place] [facility] [address] [facility] [place] [address] 03/27/2024 2:00 PM EST Office Visit Hematology/Oncology [place] [address] [facility] [place], [place] [phone] Lizbeth Madison CRNP [address] [place] [address] Health Maintenance Due Date Last Done Comments Cologuard 06/16/1999 Fecal Occult Blood Test 06/16/1999 Sigmoidoscopy 06/16/1999 COVID-19 Vaccine ( season) 2023 12/21/2022, 01/25/2021, 2020, Additional history exists Diabetic Eye Exam 07/11/2023 07/10/2022, , 07/10/2022, Additional history exists HbA1c 02/08/2024 08/08/2023, 03/0 03/2023, 11/08/2022, Additional history exists GFR 02/19/2024 08/20/2023, 06/0 11/2023, 08/18/2023, Additional history exists Mammogram 04/23/2024 04/23/2023, 04/12, 04/19/2022, Additional history exists Albumin/Creatinine Ratio 05/10/2024 024, 04/17/2022, 04/15/2021, Additional history exists Diabetic Foot Exam 05/10/2024 05/11/2023, 0 04/17/2022, 04/15/2021 Depression Screening 06/07/2024 06/08/2023 CKD HGB USE SMARTSET 83262 08/19/202408/19, 08/19/2023, 08/19/2023, Additional history exists CKD PHOS USE SMARTSET 60022 08/19/202408/10, 08/19/2023, 08/18/2023, Additional history exists Colonoscopy 02/03/2025 02/03/2015, 01/11, [...] this encounter Medical Devices Implanted Type Area Operations Research Director Device Identifier Shelf Expiration Date Model / Serial / Lot Valve Transcath Resilia 23mm - [id number] Implanted:Qty: 1 on 06/05/2023 by Mat Lucia [place] [facility] [employer] [id number] 11/12/2023 [id number] / / Screw Bone 6.5x30mm - [id number] Implanted:Qty: 1 on 08/17/2023 by Chito Cochran [place] [facility] [place]: Hip ALEYDA : ORTH[employer]AED[employer] 05/22/2028 [id number] / / HFF Screw Low Profile 6.3gxr14io - [id number] Implanted:Qty: 1 on 08/17/2023 by Chito Cochran [place] [facility] [place] Hip ALEYDA : [employer]TH[employer] 03/31/2028 [id number] / / [id number] Implant Stem Hip Colr High 2 - [id number] Implanted:Qty: 1 on 08/17/2023 by Chito Cochran [place] [facility] [place] Hip ALEYDA : ORTHOPAED[employer] 03/20/2027 [id number] / / [id number] Hip Steven Rdz Md D 36 25 - [id number] Implanted:Qty: 1 on 08/17/2023 by Chito Cochran [place] [facility] [place] Hip ALEYDA : [employer] 03/19/2028 [id number] / / [id number] Hip Shell Trident X3 10 36x50 - [id number] Implanted:Qty: 1 on 08/17/2023 by Chito Cochran [place] [facility] [place]: Hip ALEYDA : [employer]TH[employer] 07/10/2028 763-10-36E / / [id number] Implant Hip Acetab Shell 52e - [id number] Implanted:Qty: 1 on 08/17/2023 by Chito Cochran MD [place] [facility] [place] Hip ALEYDA : ORTH[employer] 07/07/2028 709-04-52E / / [id number] 6.5mm Low Profile Hex Screw 6 - [id number] Implanted:Qty: 1 on 08/17/2023 by Chito Cochran [place] [facility] [place] Hip ALEYDA : ORTHOPAEDICS 04/24/2028 [id number] / / [id number] Screw Low Profile 6.6gbs17uq - [id number] Implanted:Qty: 1 on 08/17/2023 by Chito Cochran MD [place] [facility] [place] Hip ALEYDA : ORTHOPAEDICS 04/16/2028 [id number] / / [id number] Implant Stem Hip Colr High 1 - [id number] Implanted:Qty: 1 on 08/17/2023 by Chito Cochran [place] [facility] [place] Hip ALEYDA : ORTHOPAEDICS 12/13/2027 [id number] / / [id number] Hip Steven Rdz Md D 36 25 - [id number] Implanted:Qty: 1 on 08/17/2023 by Chito Cochran [place] [facility] [place] Hip ALEYDA : ORTHOPAEDICS 01/30/2028 [id number] / / [id number] Hip Shell Trident X3 10 36x50 - [id number] Implanted:Qty: 1 on 08/17/2023 by Chito Cochran [place] [facility] [place]: Hip ALEYDA : ORTHOPAEDICS 05/03/2028 763-10-36E / / [id number] Implant Hip Acetab Shell 52e - [id number] Implanted:Qty: 1 on 08/17/2023 by Chito Cochran MD at [facility] Right: Hip ALEYDA : ORTHOPAEDICS 06/21/2028 709-04-52E / / [id number] documented as of this encounter Advance Directives * Full Code (Latest Code Status on File) Date Activated Date Inactivated Comments 08/17/2023 7:01 PM This order refl ects the patients wishes and were consensually agreed [...] Power of Attor ludmila? No Care Teams Moisture Machine Tender Relationship Specialty Start Date End Date Deon Dougherty III, MD [address] [place] [address] PCP - General 10/25/1995 documented as of this encounter
--- OUTSIDE RECORDS SUMMARY | 2023-09-22 13:25 | External Medical Summary ---
Author Name Unknown Address Unknown Organization [id number] [address] [place] [address] Laboratory Report Ordering Provider Test Date Status PETTY HENRIK 08/20/2023 04:19:00 Final Observation Date Value Abnormality Reference (Units ) Status Magnesium 08/20/2023 04:19:00 2.0 1.5-2.6 (m g/dL) Final Performing Location [facility] [address] [place] [place] [address]
--- OUTSIDE RECORDS SUMMARY | 2023-09-22 13:25 | External Medical Summary ---
Author Name Unknown Address Unknown Organization [id number] [address] [place] [address] Laboratory Report Ordering Provider Test Date Status PETTY HENRIK 08/23/2023 04:16:00 Final Observation Date Value Abnormality Reference (Units ) Status Phosphate 08/23/2023 04:16:00 2.7 2.5-4.8 (m g/dL) Final Performing Location [facility] - [address] [place] [address]
--- OUTSIDE RECORDS SUMMARY | 2023-09-22 13:25 | External Medical Summary ---
Author Name Unknown Address Unknown Organization [id number]:[facility] - [facility] [address] [facility] [address] [place] [address] Laboratory Report Ordering Provider Test Date Status ANNUM,HAYAT 08/19/2023 22:12:00 Final Observation Date Value Abnormality Reference (Units ) Status WBC, Total 08/19/2023 22:12:00 12.83 Above high normal 4.00-10.80 (K/uL) Final RBC 08/19/2023 22:12:00 2.11 3.85-5.15 (M/uL) Final Hemoglobin 08/19/2023 22:12:00 6.3 Below low normal 12.0-15.3 (g/dL) Final HCT 08/19/2023 22:12:00 19.5 Below low normal 36.0-45.2 (%) Final MCV 08/19/2023 22:12:00 92.4 81.5-97.5 (fL) Final MCH 08/19/2023 22:12:00 29.9 27.0-34.0 (pg) Final MCHC 08/19/2023 22:12:00 32.3 32.0-36.0 (g/dL) Final RDW 08/19/2023 22:12:00 15.6 11.5-15.5 (%) Final Platelets 08/19/2023 22:12:00 101 Below low normal 140-400 (K/uL) Final MPV 08/19/2023 22:12:00 10.5 6.6-11.1 (fL) Final Nucleated erythrocytes/100 leukocytes [Ratio] in Blood by Automated count 08/19/2023 22:12:00 0 <=0 (/100 WBCs) Final Performing Location [facility] - [address] [place] [address]
--- OUTSIDE RECORDS SUMMARY | 2023-09-22 13:25 | External Medical Summary ---
Author Name Unknown Address Unknown Organization [id number]:[facility] [place] - [address] [place] [address] Laboratory Report Ordering Provider Test Date Status DAVID LUJAN 08/23/2023 04:16:00 Final Observation Date Value Abnormality Reference (Units ) Status WBC, Total 08/23/2023 04:16:00 14.89 Above high normal 4.00-10.80 (K/uL) Final RBC 08/23/2023 04:16:00 2.80 3.85-5.15 (M/uL) Final Hemoglobin 08/23/2023 04:16:00 8.2 Below low normal 12.0-15.3 (g/dL) Final HCT 08/23/2023 04:16:00 25.2 Below low normal 36.0-45.2 (%) Final MCV 08/23/2023 04:16:00 90.0 81.5-97.5 (fL) Final MCH 08/23/2023 04:16:00 29.3 27.0-34.0 (pg) Final MCHC 08/23/2023 04:16:00 32.5 32.0-36.0 (g/dL) Final RDW 08/23/2023 04:16:00 16.1 11.5-15.5 (%) Final Platelets 08/23/2023 04:16:00 224 140-400 (K/uL) Final MPV 08/23/2023 04:16:00 10.2 6.6-11.1 (fL) Final Nucleated erythrocytes/100 leukocytes [Ratio] in Blood by Automated count 08/23/2023 04:16:00 0 <=0 (/100 WBCs) Final Performing Location [facility] - [address] [place] [address]
--- OUTSIDE RECORDS SUMMARY | 2023-09-22 13:25 | External Medical Summary ---
Author Name Unknown Address Unknown Organization [id number]:[facility] [place] - [address] [place] [address] Laboratory Report Ordering Provider Test Date Status PETTY HENRIK 08/20/2023 04:19:00 Final Observation Date Value Abnormality Reference (Units ) Status BUN 08/20/2023 04:19:00 19 6-20 (mg/dL) Final Creatinine 08/20/2023 04:19:00 1.0 0.5-1.0 (mg/dL) Final Glomerular filtration rate/1.73 sq M.predicted [Volume Rate/Area] in Serum, Plasma or Blood by Creatinine-based formula (CKD-EPI) 08/20/2023 04:19:00 62 >=60 (mL/min) Final eGFR is calculated based on the CKD-EPI 2020 equation Sodium 08/20/2023 04:19:00 137 135-146 (m mol/L) Final Potassium 08/20/2023 04:19:00 4.0 3.5-5.1 (m mol/L) Final Cl 08/20/2023 04:19:00 107 98-107 (mm ol/L) Final CO2 08/20/2023 04:19:00 20 Below low normal 22- 32 (mmol/L) Final Anion gap 08/20/2023 04:19:00 10 7-15 (mmol /L) Final Glucose 08/20/2023 04:19:00 129 Above high normal 70 -120 (mg/dL) Final Calcium 08/20/2023 04:19:00 7.9 Below low normal 8.4 -10.2 (mg/dL) Final Performing Location [facility] [place] - [address] [place] [address]
--- OUTSIDE RECORDS SUMMARY | 2023-09-22 13:25 | External Medical Summary ---
Author Name Unknown Address Unknown Organization : Laboratory Report Ordering Provider Test Date Status JOHN RIVERA 08/20/2023 07:45:07 Final Observation Date Value Abnormality Reference (Units ) Status Glucose Point of Care 08/20/2023 07:45:07 97 70-120 (mg/dL) Final Performing Location
--- OUTSIDE RECORDS SUMMARY | 2023-09-22 13:25 | External Medical Summary ---
Author Name Unknown Address Unknown Organization [id number][facility] [address] [place] [address] Laboratory Report Ordering Provider Test Date Status PETTY HENRIK 08/21/2023 04:35:00 Final Observation Date Value Abnormality Reference (Units ) Status Magnesium 08/21/2023 04:35:00 1.8 1.5-2.6 (m g/dL) Final Performing Location [facility] - [address] [place] [address]
--- OUTSIDE RECORDS SUMMARY | 2023-09-22 13:25 | External Medical Summary ---
Author Name Unknown Address Unknown Organization K01:[facility] - [address] [place] [address] Laboratory Report Ordering Provider Test Date Status PETTY HENRIK 08/19/2023 04:50:00 Final Observation Date Value Abnormality Reference (Units ) Status Phosphate 08/19/2023 04:50:00 1.8 Below low normal 2.5 -4.8 (mg/dL) Final Performing Location [facility] - [address] [place] [address]
--- OUTSIDE RECORDS SUMMARY | 2023-09-22 13:25 | External Medical Summary ---
Author Name Unknown Address Unknown Organization : Laboratory Report Ordering Provider Test Date Status CARTER CASTRO 08/19/2023 11:05:01 Final Observation Date Value Abnormality Reference (Units ) Status Glucose Point of Care 08/19/2023 11:05:01 160 Above high normal 70-120 (mg/dL) Final Performing Location
--- OUTSIDE RECORDS SUMMARY | 2023-09-22 13:25 | External Medical Summary ---
Author Name Unknown Address Unknown Organization K01:[facility] [place] [address] [place] [address] Laboratory Report Ordering Provider Test Date Status GUNJAN GARCIA 08/19/2023 19:32:00 Final Draw Every 30 minutes:
Immediately before administration of cosyntropin (CORTROSYN),
30 minutes after administration of cosyntropin (CORTROSYN),
60 minutes after administration of cosyntropin (CORTROSYN)
(for Cosyntropin Stim Test) Observation Date Value Abnormality Reference (Units ) Status Cortisol 08/19/2023 19:32:00 21.4 Above high normal 2. 5-19.5 (ug/dL) Final AM Reference Range: 4.8 - 19 .5 ug/dL
PM Reference Range: 2.5 - 11.9 ug/dL Performing Location [facility] - [address] [place] [address]
--- OUTSIDE RECORDS SUMMARY | 2023-09-22 13:25 | External Medical Summary ---
Author Name Unknown Address Unknown Organization K01:[facility] - [address] [place] [address] Laboratory Report Ordering Provider Test Date Status PETTY HENRIK 08/21/2023 04:35:00 Final Observation Date Value Abnormality Reference (Units ) Status Phosphate 08/21/2023 04:35:00 1.9 Below low normal 2.5 -4.8 (mg/dL) Final Performing Location [facility] - [address] [place] [address]
--- OUTSIDE RECORDS SUMMARY | 2023-09-22 13:25 | External Medical Summary ---
Author Name Unknown Address Unknown Organization K01:[facility] [place] - [address] [place] [address] Laboratory Report Ordering Provider Test Date Status PETTY HENRIK 08/22/2023 04:38:00 Final Observation Date Value Abnormality Reference (Units ) Status BUN 08/22/2023 04:38:00 23 Above high normal 6-20 (mg/dL) Final Creatinine 08/22/2023 04:38:00 1.0 0.5-1.0 (mg/dL) Final Glomerular filtration rate/1.73 sq M.predicted [Volume Rate/Area] in Serum, Plasma or Blood by Creatinine-based formula (CKD-EPI) 08/22/2023 04:38:00 63 >=60 (mL/min) Final eGFR is calculated based on the CKD-EPI 2020 equation Sodium 08/22/2023 04:38:00 141 135-146 (m mol/L) Final Potassium 08/22/2023 04:38:00 3.9 3.5-5.1 (m mol/L) Final Cl 08/22/2023 04:38:00 108 Above high normal 98 -107 (mmol/L) Final CO2 08/22/2023 04:38:00 23 22-32 (mmo l/L) Final Anion gap 08/22/2023 04:38:00 10 7-15 (mmol /L) Final Glucose 08/22/2023 04:38:00 94 70-120 (mg /dL) Final Calcium 08/22/2023 04:38:00 8.1 Below low normal 8.4 -10.2 (mg/dL) Final Performing Location [facility] - [address] [place] [address]
--- OUTSIDE RECORDS SUMMARY | 2023-09-22 13:25 | External Medical Summary | Summary of Care ---
Author Name Unknown Organization [facility] Address [address] [place] [address] Phone [phone] Care Team Providers Care Hospital Superintendent Name Role Phone Farhat MEEHAN MD, Deon Cerna Primary Care Provider [phone] Reason for Visit * Reason Onset Date Comments Pre-Op Testing 08/14/2023 Encounter Details Date Type Department Care Team (Latest Contact Info) Description 08/14/2023 9:45 AM EDT Pre-Admission Testing Pre Surgery [facility] [address] [place] [address] [place] [address] [place] [address] Pre-operative examination* Allergies Active Allergy Reactions Criticality Noted Date Comments Dichloralphenazone 08/15/2022 Other Reaction(s): RASH Isometheptene 08/15/2022 Other Reaction(s): RASH Midrin 07/21/1999 Red and ictchy in the face documented as of this encounter (statuses as of 08/21/2023) Medications Medication Sig Dispensed Refills Start Date End Date Status OCUVITE-LUTEIN PO CAPS One capsule twice daily Suspended RIBOFLAVIN (VITAMIN B-2) 100 MG Tablet Take 2 Tablets by mouth in the morning and 2 Tablets before bedtime. Suspended Calcium Carbonate-Vit D-Min (CALCIUM 600+D PLUS MINERALS) 600-400 MG-UNIT CHEW Take by mouth daily. T tablet daily 4 Discontinued triamcinolone acetonide (ARISTOCORT) 0.1 % creamIndications :Other psoriasis APPLY TWICE DAILY DIRECTED 30 g 5 07/02/2018 Suspended Additional Information Cyanocobalamin 1000 MCG Oral Tablet (Cyanocobalamin) Take by mouth 1 Tablet in the morning. 100 Tablet 3 10/13/2021 4 Discontinued Vitamin D (Cholecalciferol ) 25 MCG (1000 UT) Oral Capsule Take 1 Capsule by mouth in the morning and 1 Capsule before bedtime. 4 Discontinued Letrozole 2.5 MG Oral Tablet (Femara)Indicati ons:Breast carcinoma, female, right (HCC) Take 1 Tablet by mouth in the morning. 90 Tablet 3 09/25/2022 Suspended Additional Information Diclofenac Sodium 1 % External Gel (Voltaren) Apply topically to affected area 3 times a day. Apply to 5 th mtp head 11/08/2022 Suspended Additional Information Patient not taking.Reported on 08/08/2023 Acetaminophen ER 650 MG Oral Tablet Extended Release (Tylenol 8 Hour Arthritis Pain) Take 1 Tablet by mouth daily at noon. 4 Discontinued metFORMIN HCl ER 500 MG Oral Tablet Extended Release 24 Hour (Glucophage XR)Indications:A bnormal blood chemistry TAKE FOUR TABLETS BY MOUTH EVERY DAY 360 Tablet 1 04/16/2023 4 Discontinued Amitriptyline HCl 75 MG Oral Tablet (Elavil) TAKE ONE TABLET BY MOUTH AT BEDTIME 90 Tablet 1 04/16/2023 5 Suspended Additional Information Aspirin 81 MG Oral Tablet Chewable Take 1 Tablet by mouth in the morning. 34 Tablet 11 06/07/2023 4 Discontinued Amoxicillin 500 MG Oral Capsule (Amoxil) Take [...] AT BEDTIME 270 Tablet 1 07/06/2023 5 Suspended Additional Information Atorvastatin Calcium 80 MG Oral Tablet (Lipitor)Indicat ions:Dyslipidemi a, goal to be determined Take 1 Tablet by mouth at bedtime. 90 Tablet 3 07/09/2023 Suspended Additional Information Nadolol 20 MG Oral Tablet (Corgard)Indicat ions:Migraine variant Take 1 Tablet by mouth at bedtime. 90 Tablet 3 07/09/2023 Suspended Additional Information traMADol HCl 50 MG Oral Tablet (Ultram)Indicati ons:Bilateral hip pain Take 1 Tablet by mouth every 8 hours as needed for Pain, Moderate or Pain, Severe. Two per day maximum 30 Tablet 08/09/2023 4 Discontinued Diclofenac Sodium 1 % External Gel (Voltaren) Apply topically to affected area 4 times a day. Apply to areas outside both hips/troch bursitis 350 g 6 08/08/2023 Suspended Additional Information Mupirocin 2 % External Ointment (Bactroban) Apply topically to affected area 2 times a day for 7 days. Apply a pea sized amount into each nostril, using a cotton tipped applicator. Do not start before August 10, 2023. 22 g 08/10/2023 Chlorhexidine Gluconate 4 % External Liquid (Hibiclens) Apply in the shower instead of your normal body wash or soap. Paying special attention to armpits, groin and surgical site. Doing this along with the course of nasal ointment Do not start before August 10, 2023. 240 mL 08/10/2023 4 documented as of this encounter (statuses as of 08/21/2023) Active Problems Problem Noted Date Diagnosed Date Primary osteoarthritis of both hips 08/08/2023 Migraine variant 06/14/2023 Atherosclerosis of tolowa dee-ni' [...] as of this encounter (statuses as of 08/21/2023) Resolved Problems Problem Noted Date Diagnosed Date [...] as of this encounter (statuses as of 08/21/2023) Immunizations Name Administration Dates Next Due COVID-19 mRNA, LNP-s, No Pre serve, 2-Dose Series ([employer]) 01/25/2021,2020,05/25/2020 COVID-19, MRNA-LNP, 23-24, P F, 30 MCG/0.3 mL, 12 YRS AND ABOVE, IM (PFIZER-Comirnaty) 12/21/2022 Pneumococcal Conjugate Vacci ne, 20-valent ([id number]) 10/13/2021 Pneumococcal Polysaccharide PPV23 (Pneumovax) 04/14/2020 RSV [...] 10/22/2017 ,07/17/2017 documented as of this encounter Anesthesia Record Procedure Summary Procedure Name Responsible Anesthesiologist Anesthesia Start Time Anesthesia Stop Time ARTHROPLASTY TOTAL HIP (Bilateral) Genaro Hurtado MD 08/17/23 1413 08/17/232031 Events Date Time Event Comment 08/17/2023 1259 1334 Anesthesia Room Setup Comple te 1334 Apparatus Check Apparatus Ch ecklist Completed Machine #: \\[id number] 1412 Patient Identified Patient i dentity was verified using at least two methods. 1412 Pre-Op SBAR 1413 Anes Start 1426 Start Data Collect 1456 Junior Event Spinal injectio n 1504 Junior Event Test dose 1509 Anesthesiologist Initials Si gning in. Preop and current status reviewed with Dr. Morales. Poler 1510 Ready for Prep 1540 Comment Patient unrespo nsive to phenylephrine and ephedrine. Vasopressin administered, norepinephrine gtt initiated with fluid boluses and albumin. Ortho staff aware. [address] Emiliano Morales assisting with placement of an A-line. Not responsive to phenylephrine and ephedrine. Responded to vasopressin and norepinephrine. SMP 1634 Anesthesiologist Initials Robby flood responsive to A-line attempt. Discussed continuation with Dr. Cochran. Will start an a-line while supine between hips. Poler 1717 Comment TO for arterial line placement by Dr. Hurtado 1723 Junior Event Arterial line p laced. Poler 1746 Anesthesiologist Initials An emia and acidosis on WBP. Pressure paradox with spontaneous breathing on A-line tracing. Hypovolemic. Giving IV volume, bicarb, and a unit of blood anticipating further blood loss. Poler 1906 Anesthesiologist Initials SM P 1927 Stop Data Collection 2012 Comment Report given to ICU. Will transport to ICU. 2030 Post-Op SBAR 2031 Anes Stop Meds * Agents No agents on file. * Blood No blood administrations on file. Lines, Drains, and Airways Type Details Placement Removal Alteration in Skin Integrity Placement Date: 08/17/23; Time: 1541; Orientation/Lateralit y: Right, Lateral; Location: Hip 08/17/23 1541 by Nelly Davenport RN Alteration in Skin Integrity Placement Date: 08/17/23; Time: 1700; Orientation/Lateralit y: Left; Location: Hip 08/17/23 1700 by Lizbeth Cheney RN Alteration in Skin Integrity Placement Date: 06/05/23; Time: 1200; Wound Type: Incision; Orientation/Lateralit y: Anterior, Proximal, Right; Location: Groin; Removal Date: 08/17/23; Time: 233806/05/23 1200 by Yeni Heard RN 08/17/232338 by Xavi Vasquez RN Alteration in Skin Integrity Placement Date: 06/05/23; Time: 1200; Orientation/Lateralit y: Anterior, Left, Proximal; Location: Groin; Removal Date: 08/17/23; Time: 233806/05/23 1200 by Yeni Heard RN 08/17/232338 by Xavi Vasquez RN Peripheral Line Placement Date: 08/17/23; Time: 132; Inserted By: Layla RAYMUNDO; Orientation/Lateralit y: Posterior, Right; General Location: Wrist; Size: 20 Gauge; Removal Date: 08/19/23; Time: 0908/17/23 1325 by Zuleyma Bashir RN 08/19/23 09 by Rikki Ramirez RN Supplemental Airway Placement Date: 08/17/23; Time: 144; Inserted By: Martin Cid CRNA; Airway Device: Natural, Nasal Cannula; Removal Date: 08/17/23; Time: 203108/17/23 1448 by Haile Cid CRNA 08/17/232031 by Gregorio Armas CRNA Urethral Catheter 08/17/23; 1520; Lee Ann Christianson; Soap and water; Regular catheter; 16; 10 mL; Yes; None; 08/17/23; 1999; 08/17/23; Other (Comment) (removed prior to admission to floor) 08/17/23 1520 by Lizbeth Cheney RN 08/17/231999 by Xavi Vasquez RN Peripheral Line Placement Date: 08/17/23; Time: 161; Inserted By: Millicent Hay CRNA; Orientation/Lateralit y: Right; General Location: Wrist; Size: 20 Gauge; Type: Plastic Safety Catheter; Removal Date: 08/18/23; Time: 0300 08/17/23 1612 by Haile Cid CRNA 08/18/23299 by Christina, Xavi, RN Arterial Line Placement Date: 08/17/23; Time: 1716 (created via procedure documentation); Inserted By: Genaro Hurtado MD; Location: Radial; Laterality: Left; Size: 20G; Removal Date: 08/18/23; Time: 173908/17/231716 by Genaro Hurtado MD 08/18/231739 by Cheryl Brady RN documented in this encounter Social History Tobacco Use Types [...] money to buy more. Never true 06/26/19 Within the past 12 months, t he [...] Sign Reading Time Taken Comments Blood Pressure 106/72 08/14/2023 9:17 AM EDT Pulse 78 08/14/2023 9:17 AM EDT Temperature - - Respiratory Rate - - Oxygen Saturation 98% 08/14/2023 9:17 AM EDT Inhaled Oxygen Concentration - - Weight - - Height - - Body Mass Index - - documented in this encounter Patient Instructions * Patient Instructions* Drea Duke CRNA/WILLIAM - 08/14/2023 9:45 AM EDT [facility]: Contact # [phone] Directions to Surgical Suite in from the [facility] Entrance [facility] Enter through Main Lobby Entrance and the Waiting Room is directly in front of you. Proceed to check in and give them your name. Directions to Surgical Suite from the East Entrance Enter the East entrance and follow the hallway to the J elevator. Take the J elevator up to Level 1. Continue down the long hallway to the main [facility] Lobby. The Surgical Waiting Room will be on your Right. Proceed to check in and give them your Name. Directions to Surgical Suite from the Parking Garage Enter the [facility] lobby and proceed down the blanc to the left. At the end of the blanc, turn right. Continue down the long hallway to the main [facility] Lob. The Surgical Waiting Room will be on your Right. Proceed to check in and give them your Name. THANK YOU FOR CHOOSING [facility]! PRE-OP PATIENT INFORMATION AND EDUCATION: MEDICATION INSTRUCTIONS: The day of surgery/procedure, you may TAKE the following medications with a sip of water up to 2 hours prior to your arrival time: Acetaminophen Atorvastatin Cyclobenzaprine Letrozole Metformin Tramadol? AVOID / DO NOT TAKE the following medications the morning of surgery/procedure: OK to take night before surgery: Amitriptyline Atorvastatin Joint replacement powder Indepamide Nadolol Voltaren AVOID / DO NOT TAKE the following medications the evening prior to and morning of surgery/procedure: Any skin ointment or gel Benzapril STOP taking the following medications the noted number of days prior to surgery/procedure unless otherwise specified by your surgeon: Please follow surgeon's instructions regarding use of Aspirin, Coumadin, Plavix, Eliquis, and any other blood thinner including NSAIDs (non-steroidal anti- inflammatory drugs, eg, Advil, Ibuprofen, Motrin, Aleve, Naproxen); if you have any questions regarding your anticoagulation therapy please contact your surgeon's clinic. Please verify any proposed stoppage of your anticoagulation therapy with the agent's prescribing provider. 10 days prior to surgery/procedure Stop all Herbal supplements, Green Tea, Turmeric, Melatonin, CBD, THC, etc. Stop all Vitamins (including Vitamin D, B12, Riboflavin, Calcium, Riboflavin) 24 hours prior to surgery/procedure DO NOT consume any alcohol. DO NOT use medical marijuana. DO NOT smoke or use tobacco products of any kind after midnight prior to surgery. *Using any of these products may increase your risks of procedural complications. IF IT IS LESS THAN RECOMMENDED STOPPAGE TIME PLEASE STOP AT TIME OF NOTIFICATION. FASTING RECOMMENDATIONS: To reduce risk, it is important for all elective surgery patients to follow the specific fasting guidelines listed below. If you have received more stringent guidelines, please follow the MOST RESTRICTIVE guidelines that you have been provided. DO NOT EAT after midnight on the night prior to your surgery date. You are allowed to drink clear liquids up to two hours prior to arrival time to the hospital or surgery center. Examples of clear liquids include water, clear fruit juice without pulp, clear carbonated beverages, clear tea, and black coffee. Any drinks given by your surgical service take as directed. THE DAY BEFORE YOUR SURGERY: -Drink plenty of fluid the day before your surgery. Contact your surgeon's office if you develop any of the following within 2 weeks of surgery: A cold Infection Fever Shingles Chicken pox or exposure to chicken pox Open areas such as scrapes, cuts, minor or other skin conditions Rashes GENERAL INSTRUCTIONS FOR PREPARING FOR SURGERY: BATHING INSTRUCTIONS: Bathe the evening prior to and the morning of surgery/procedure. Cleanse your body using ONLY anti-bacterial soap (eg, Dial, Safeguard) or any specific soap/cleansers and instructions provided by your surgeon (eg, Chlorhexidine). -You should brush your teeth the morning of surgery. Do NOT apply any lotions, powders, sprays, creams, oils, make-up, or deodorants after bathing. No hairspray, or nail uzbek on fingers or toes. Please remove all piercings and jewelry and leave them at home. Wear comfortable and loose clothing. -Please leave all valuables at home. -If you use an assistive mobility device (walker, cane, etc), please label it with your name and bring to hospital. OR times subject to change. Please check voicemail messages the day/evening before your surgery forany updates. PRE-OP: You will be taken to the pre-op area where your vital signs (blood pressure, pulse and temperature)will be taken. Any preparations that need to be done will be done there. When it is time for your surgery, you will be taken to the operating room. OUTPATIENT SURGERY PATIENTS: After your surgery you will be taken to the Same Day Surgery Unit when you are awake and will go home from there. You will get instructions about your home care before you leave. Arrange to have someone drive you home from the hospital. You may not drive for 24 hours after anesthesia. You must havean adult stay with you at home for 24 hours after your operation. This is very important. If you are not able to comply with these guidelines, your Short Stay surgery cannot be done. ADMISSION PATIENTS: After your stay in the recovery area, you will be taken to your room. Your family may visit you in your room based on current visitation policy. If a next day discharge is expected, it is important to make arrangements for a concrete pile driver operator to take you home. Please be aware our visitation policies are subject to change Professionals, attendants, caregivers or family members are allowable visitors for patients with intellectual, developmental or cognitive disabilities, communication barriers or behavioral concerns. Because patients' and families' needs vary, they will be taken into account when applying visitation restrictions. ANESTHESIA INFORMATION This information has been prepared to help you and your family better understand the process of anesthesia, so that you may help make well-informed decisions about your care. This information is alsoprovided to guide your completion of the [facility] anesthesia consent form which addresses real, but infrequent, problems associated with anesthesia. IMPORTANT INFORMATION TO PREVENT YOUR SURGERY FROM BEING CANCELLED/ RESCHEDULED: --You are required to have a concrete pile driver operator to take you home whether you are admitted to the hospital following your surgery or not --You are required to have a responsible adult with you for the first 24 hours after surgery to support your needs Types of Anesthesia: Local Anesthesia Local anesthetic drugs (numbing drugs) are usually injected into the tissues to numb just the specific location of your body requiring minor surgery, such as an area of your hand or foot. Regional Anesthesia -Regional anesthesia involves the use of local anesthetics (numbing drugs) to numb larger areas of your body by blocking nerves to those areas. This is commonly referred to as a nerve block. Another way of performing regional anesthesia is by blocking nerves of the spinal cord by injecting numbing m edicines with great exactness around those nerves. This is called spinal or epidural anesthesia depending on exactly where the medication is injected. The type of regional anesthesia selected dependson the type of surgery and whether regional anesthesia is being done to help with pain after surgery or as a part of the anesthesia for surgery. You may remain awake, be sedated, or be given a general anesthetic depending on the type of surgery and the type of regional anesthesia performed Monitored Anesthesia Care (MAC) -Describes a range of sedation that can be given to a patient undergoing a procedure. The level of sedation usually depends on what is needed for the procedure being performed. A patient could be awake and aware of the procedure being performed but be relaxed and able to follow instructions as needed or may be unaware of what is happening and only rouse to significant stimulation. A patient may be able to speak, hear things around them, and answer questions and follow commands but is not in pain or anxious. A patient may experience varying depths of sedation during the procedure. The use of general anesthesia could result if this type of anesthesia is ineffective. General Anesthesia - Occurs by using a combination of medications to put a patient into a deep, sleep-like, unresponsive state for surgery. This is required for many surgical procedures. Under general anesthesia, a patient does not feel pain and is unaware of what is happening during the procedure. Systems in the body may not function normally while a patient is under general anesthesia. They are monitored by the anesthesia provider and may need to be assisted while a patient is under general anesthesia. For example, a breathing device may need to be placed in the airway to assist breathing and medications may need to be given to ensure that your blood pressure and heart rate remain normal. Risks of Anesthesia: Regional/Local/Nerve Blocks -Include but are not limited to, , cardiac or respiratory arrest, permanent complete paralysis, permanent nerve injury, seizure, spinal headache, backache, pain in buttocks and legs, infection, bleeding, leakage of spinal fluid, inadequate pain relief, bowel or bladder dysfunction, prolonged numbness or pain, temporary drop in blood pressure, or allergic reaction to the medications. Monitored Anesthesia Care (MAC) -Common risks include temporary dizziness, light-headedness, nausea and/or vomiting, and leakage ofintravenous fluid into the tissues with swelling or discoloration of the area or residual pain. Less common risks include, but are not limited to, , heart attack, permanent brain damage, stroke,pneumonia, blood clots, awareness, nerve stretch injury of your arm, neck or leg, permanent liver damage and allergic reaction to the medications. General Anesthesia -More common risks include temporary sore throat, pain in the neck or other muscles, dizziness, light-headedness, nausea and/or vomiting, and leakage of intravenous fluid into the tissues with swelling or discoloration of the area or residual pain. Less common risks include, but are not limited to,, heart attack, permanent brain damage, stroke, pneumonia, blood clots, irritation of the cornea of your eye, vision loss, loosened or broken teeth, or other oral injuries, awareness, nerve stretch injury of the arm, neck or leg, hoarseness, laryngospasm, permanent liver damage and allergic reaction to the medications. History of anesthesia complications: If you or a family member have had a complication related to anesthesia such as difficulty with placement of a breathing tube or a serious reaction to a medication administered for anesthesia, pleasetell your anesthesia provider. Having this information will help keep you safe while under anesthesia Nausea: A common side effect of anesthesia is nausea, but some patients do experience both nausea and vomiting. If you have experienced nausea or vomiting after anesthesia in the past, be sure to tell your anesthesia provider so medication can be given to help prevent it from happening again. Patient safety/consenting process: All surgical procedures and anesthetics have some small risks. They are dependent upon many factorsincluding the type of surgery and your medical condition. That is why it is important to know aboutany underlying medical problems, how they are treated and how they can be managed to reduce the risks of anesthesia and surgery. Thus, it is important for your anesthesia provider to ask detailed questions about your medical history, and to know what prescription medications you are taking, including dosages and schedules, as well as any over the counter or herbal medicines and supplements. You must notify the doctor of any of the following: -if you are or possibly -if you have any sensitivity to medications -present mental and physical condition -if recently consumed alcohol or non-clear liquids -if you are presently on psychiatric mood-altering drugs or other medications If you are a female of child-bearing age and you use any form of hormone-based contraception, please continue to use it and, in addition, use an alternative form of contraception, such as condoms andspermicide for a month after discharge from the hospital. This is because during the hospitalization you might receive one or more medications that may render hormone-based contraceptives ineffective for several days or weeks. The affected contraceptives include, but are not limited to, the usual contraceptive pills, most types of intrauterine devices, Depo-Provera shots, hormonal patches, and hormonal vaginal rings. If you are not sure, contact your primary care physician, your lsat instructor, or your surgeon to check if this warning applies to you. You may need to have invasive monitoring, which includes the insertion of catheters into your veinsand arteries. This is done to measure pressures, to take blood samples, and may be used in emergentsituations for intravenous access. This monitoring has risks including, but not limited to, injury to your arteries, lung collapse, bleeding, nerve injury as well as the risks related to anesthesia. An esophageal probe may be used to monitor your heart, this monitor has risks which include sore throat, hoarseness, difficulty with swallowing, loosened or broken teeth and esophageal injury. Major complications are rare but could include , respiratory distress, an abnormal heartbeat, infection, and bleeding. As part of the consent to administer anesthesia authorization you will discuss the following with the anesthesia doctor and his/her associates: -your present condition and diagnosis as it pertains to anesthesia or sedation administration -a description of the proposed anesthetic/sedation technique or procedure to be used -significant risks and benefits of the proposed anesthetic/sedation technique or procedure -any applicable alternatives, including their risks and benefits -if applicable, use of back-up method of contraception for 30 days after discharge -if applicable, the option of having no treatment and the potential results of this -if your procedure is in an outpatient surgery setting-the risk associated with having this procedure in this type of setting should be discussed as well as the potential need for transfer to the hospital if necessary Please be sure to have all questions that you have answered prior to signing the consent to administer anesthesia. You can make your care safer by being an active, informed patient. It is important that you are involved in your health care. Being a good patient does not mean being a silent one. If you have questions, problems, safety concerns or unmet needs, please let us know if you would like further clarification of the "Patient Rights and Responsibilities" as they pertain to you, or would like more information regarding our complaint and for grievance process, please call the site where you receive care and request to speak withthe patient advocate line. documented in this encounter Nursing Notes * Rhianna Johnston CCMA - 08/14/2023 9:17 AM EDT Patient was instructed to not get up on the exam table/exam chair until directed and assisted by their provider; patient is to remain seated in the chair/ wheelchair/ exam table/ exam chair for fall prevention and safety reasons. Patient is aware to have assistance to step down off exam table/exam chair with personnel. Patient voiced full comprehension of instructions. * Drea Duke CRNA/WILLIAM - 08/13/2023 3:05 PM EDT [facility]: Contact # [phone] Directions to Surgical Suite in from the Cheryl Entrance The Surgical Waiting Room can be found in the [facility]. [facility] and the Waiting Room is directly in front of you. Proceed to check in and give them your name. Directions to Surgical Suite from the East Entrance Enter the East entrance and follow the hallway to the J elevator. Take the J elevator up to Level 1. Continue down the long hallway to the main [facility]. The Surgical Waiting Room will be on your Right. Proceed to check in and give them your Name. Directions to Surgical Suite from the Parking Garage Enter the [facility] lobby and proceed down the blanc to the left. At the end of the blanc, turn right. Continue down the long hallway to the main [facility]. The Surgical Waiting Room will be on your Right. Proceed to check in and give them your Name. THANK YOU FOR CHOOSING [facility] PRE-OP PATIENT INFORMATION AND EDUCATION: MEDICATION INSTRUCTIONS: The day of surgery/procedure, you may TAKE the following medications with a sip of water up to 2 hours prior to your arrival time: Acetaminophen Atorvastatin Cyclobenzaprine Letrozole Tramadol? AVOID / DO NOT TAKE the following medications the morning of surgery/procedure: OK to take night before surgery: Amitriptyline Atorvastatin Joint replacement powder Indepamide Nadolol Voltaren AVOID / DO NOT TAKE the following medications the evening prior to and morning of surgery/procedure: Any skin ointment or gel Benzapril STOP taking the following medications the noted number of days prior to surgery/procedure unless otherwise specified by your surgeon: Please follow surgeon's instructions regarding use of Aspirin, Coumadin, Plavix, Eliquis, and any other blood thinner including NSAIDs (non-steroidal anti- inflammatory drugs, eg, Advil, Ibuprofen, Motrin, Aleve, Naproxen); if you have any questions regarding your anticoagulation therapy please contact your surgeon's clinic. Please verify any proposed stoppage of your anticoagulation therapy with the agent's prescribing provider. 10 days prior to surgery/procedure Stop all Herbal supplements, Green Tea, Turmeric, Melatonin, CBD, THC, etc. Stop all Vitamins (including Vitamin D, B12, Riboflavin, Calcium, Riboflavin) 24 hours prior to surgery/procedure DO NOT consume any alcohol. DO NOT use medical marijuana. DO NOT smoke or use tobacco products of any kind after midnight prior to surgery. *Using any of these products may increase your risks of procedural complications. IF IT IS LESS THAN RECOMMENDED STOPPAGE TIME PLEASE STOP AT TIME OF NOTIFICATION. FASTING RECOMMENDATIONS: To reduce risk, it is important for all elective surgery patients to follow the specific fasting guidelines listed below. If you have received more stringent guidelines, please follow the MOST RESTRICTIVE guidelines that you have been provided. DO NOT EAT after midnight on the night prior to your surgery date. You are allowed to drink clear liquids up to two hours prior to arrival time to the hospital or surgery center. Examples of clear liquids include water, clear fruit juice without pulp, clear carbonated beverages, clear tea, and black coffee. Any drinks given by your surgical service take as directed. THE DAY BEFORE YOUR SURGERY: -Drink plenty of fluid the day before your surgery. Contact your surgeon's office if you develop any of the following within 2 weeks of surgery: A cold Infection Fever Shingles Chicken pox or exposure to chicken pox Open areas such as scrapes, cuts, minor or other skin conditions Rashes GENERAL INSTRUCTIONS FOR PREPARING FOR SURGERY: BATHING INSTRUCTIONS: Bathe the evening prior to and the morning of surgery/procedure. Cleanse your body using ONLY anti-bacterial soap (eg, Dial, Safeguard) or any specific soap/cleansers and instructions provided by your surgeon (eg, Chlorhexidine). -You should brush your teeth the morning of surgery. Do NOT apply any lotions, powders, sprays, creams, oils, make-up, or deodorants after bathing. No hairspray, or nail uzbek on fingers or toes. Please remove all piercings and jewelry and leave them at home. Wear comfortable and loose clothing. -Please leave all valuables at home. -If you use an assistive mobility device (walker, cane, etc), please label it with your name and bring to hospital. OR times subject to change. Please check voicemail messages the day/evening before your surgery forany updates. PRE-OP: You will be taken to the pre-op area where your vital signs (blood pressure, pulse and temperature)will be taken. Any preparations that need to be done will be done there. When it is time for your surgery, you will be taken to the operating room. OUTPATIENT SURGERY PATIENTS: After your surgery you will be taken to the Same Day Surgery Unit when you are awake and will go home from there. You will get instructions about your home care before you leave. Arrange to have someone drive you home from the hospital. You may not drive for 24 hours after anesthesia. You must havean adult stay with you at home for 24 hours after your operation. This is very important. If you are not able to comply with these guidelines, your Short Stay surgery cannot be done. ADMISSION PATIENTS: After your stay in the recovery area, you will be taken to your room. Your family may visit you in your room based on current visitation policy. If a next day discharge is expected, it is important to make arrangements for a concrete pile driver operator to take you home. Please be aware our visitation policies are subject to change Professionals, attendants, caregivers or family members are allowable visitors for patients with intellectual, developmental or cognitive disabilities, communication barriers or behavioral concerns. Because patients' and families' needs vary, they will be taken into account when applying visitation restrictions. ~SEE ANESTHESIA EVENT FOR PRE-OP ANESTHESIA ASSESSMENT~ ~~~~~~~~~~~~~~~~~~~~~~~~~~~~~~~~~~~~~~~~~~~~~~~~~~~~ Patient identified by name/birthdate Optime case procedure confirmed with surgical consent 08/08/23 Laterality confirmed as Bilateral Surgery date at time of Pre-Surgery Center Encounter: 08/17/23 What procedure is patient having? ARTHROPLASTY TOTAL HIP - Bilateral Anesthesia Consent pool notified: N/A In an emergency, is patient willing to accept blood products or blood transfusion? yes Does Blood Bank order need placed? Yes; order(s) placed by surgeon. Anesthesia evaluation requested per case documentation. No Preop Eval Requested? No PATIENT EDUCATION SCREENING Education Screening: Patient Preoperative bathing instructions were reviewed with patient. Motivation Level: Asks Questions and Eager to Learn Language Barrier: No Physical Barrier: N/A Patient Preferred Learning Methods: Reading and Lecture LEARNING NEED: Printed Patient Education Given: Preop Information: Adult Persons present for education: Patient METHOD: One to One OUTCOME: State / Describe / Explain PATIENT INSTRUCTIONS GIVEN: General Preoperative Instructions Reviewed Medication Instructions Reviewed NPO Instructions Reviewed Verbalizes understanding of education: Yes COVID-19/Coronavirus Screening: Informant: Patient Have you been outside the county(local area)/state in the last month? No / patient denies non-essential travel outside of their county of origin Have you been experiencing any symptoms of viral infection of the upper respiratory system (fever, cough, shortness of breath, myalgia, fatigue) in the last 16 days? no Symptoms started N/a Symptoms include none Symptom severity is N/a Additional details include: N/A In the last month, have you been in contact with someone who was confirmed or suspected to have Coronavirus/ COVID-19? No In the last month, have you been in contact with someone who was experiencing upper respiratory symptoms of viral infection? No Have you been diagnosed with COVID-19/Coronavirus? no If so, when were you given this diagnosis? Are you currently experiencing any residual symptoms? When did your symptoms resolve? No, N/a Has patient undergone Infectious Disease consultation for Coronavirus/ COVID-19? No Does patient require Infectious Disease consultation/referral? No Pre-Anesthesia Review of Systems, Health History and Education completed Signature: Drea THOMAS/CARLITO Encounter Date: 08/14/23 documented in this encounter Plan of Treatment Upcoming Encounters Date Type Department Care Team (Late st Contact Info) Description 09/12/2023 10:00 AM EDT [facility] [address] [place] [address] Junior Chavez PA-C [address] [facility] [place] [address] 11/14/2023 9:00 AM EDT Office Visit Family Practice [facility] [address] [place] [address] Deon Dougherty III, MD [address] [facility] [place] [address] 12/18/2023 8:30 AM EDT Office Visit Cardiology, [facility] [address] [facility] [place] [address] [place] Carrizales, DO [address] [place] [address] 03/20/2024 2:00 PM EST Laboratory Laboratory [facility] [address] [place] [id number] [facility] [address] [facility] [place] [address] 03/27/2024 2:00 PM EST Office Visit Hematology/Oncology [facility] [place] [address] [facility] [place], [place] [phone] Lizbeth Madison CRNP [address] [facility] [place] [phone] Health Maintenance Due Date Last Done Comments Cologuard 06/16/1999 Fecal Occult Blood Test 06/16/1999 Sigmoidoscopy 06/16/1999 COVID-19 Vaccine ( season) 2023 12/21/2022, 01/25/2021, 2020, Additional history exists Diabetic Eye Exam 07/11/2023 07/10/2022, , 07/10/2022, Additional history exists HbA1c 02/08/2024 08/08/2023, 03/0 03/2023, 11/08/2022, Additional history exists GFR 02/20/2024 08/21/2023, 06, 08/19/2023, Additional history exists Mammogram 04/23/2024 04/23/2023, 04/12, 04/19/2022, Additional history exists Albumin/Creatinine Ratio 05/10/2024 024, 04/17/2022, 04/15/2021, Additional history exists Diabetic Foot Exam 05/10/2024 05/11/2023, 0 04/17/2022, 04/15/2021 Depression Screening 06/07/2024 06/08/2023 CKD HGB USE SMARTSET 55843 08/20/202408/20, 08/20/2023, 08/20/2023, Additional history exists CKD PHOS USE SMARTSET 67676 08/20/202408/10, 08/20/2023, 08/19/2023, Additional history exists Colonoscopy 02/03/2025 02/03/2015, 01/11, [...] this encounter Medical Devices Implanted Type Area Sports Physiotherapist Device Identifier Shelf Expiration Date Model / Serial / Lot Valve Transcath Resilia 23mm - [id number] Implanted:Qty: 1 on 06/05/2023 by Mat Lucia MD at [facility] [employer] [id number] 11/12/2023 [id number] / / documented as of this encounter Visit Diagnoses Diagnosis Pre-operative examination- Primary Preoperative examination, unspecified documented in this encounter Advance Directives * [...] Power of Attor ludmila? No Care Teams Hospital Superintendent Relationship Specialty Start Date End Date Deon Dougherty III, MD [address] [facility] [place], [place] [address] PCP - General 10/25/1995 documented as of this encounter
--- OUTSIDE RECORDS SUMMARY | 2023-09-22 13:25 | External Medical Summary ---
Author Name Unknown Address Unknown Organization [id number]:[facility] [place] [facility] [address] [place] [address] Laboratory Report Ordering Provider Test Date Status ANNUM,HAY 08/20/2023 19:17:00 Final Observation Date Value Abnormality Reference (Units ) Status WBC, Total 08/20/2023 19:17:00 14.09 Above high normal 4.00-10.80 (K/uL) Final RBC 08/20/2023 19:17:00 2.40 3.85-5.15 (M/uL) Final Hemoglobin 08/20/2023 19:17:00 7.0 Below low normal 12.0-15.3 (g/dL) Final HCT 08/20/2023 19:17:00 21.3 Below low normal 36.0-45.2 (%) Final MCV 08/20/2023 19:17:00 88.8 81.5-97.5 (fL) Final MCH 08/20/2023 19:17:00 29.2 27.0-34.0 (pg) Final MCHC 08/20/2023 19:17:00 32.9 32.0-36.0 (g/dL) Final RDW 08/20/2023 19:17:00 16.2 11.5-15.5 (%) Final Platelets 08/20/2023 19:17:00 114 Below low normal 140-400 (K/uL) Final MPV 08/20/2023 19:17:00 10.9 6.6-11.1 (fL) Final Nucleated erythrocytes/100 leukocytes [Ratio] in Blood by Automated count 08/20/2023 19:17:00 0 <=0 (/100 WBCs) Final Performing Location [facility] [place] [address] [place] [address]
--- OUTSIDE RECORDS SUMMARY | 2023-09-22 13:25 | External Medical Summary ---
Author Name Unknown Address Unknown Organization K01:[facility] [place] [address] [place] [address] Laboratory Report Ordering Provider Test Date Status DAVID LUJAN 08/19/2023 17:18:00 Final Observation Date Value Abnormality Reference (Units ) Status WBC, Total 08/19/2023 17:18:00 17.38 Above high normal 4.00-10.80 (K/uL) Final RBC 08/19/2023 17:18:00 2.40 3.85-5.15 (M/uL) Final Hemoglobin 08/19/2023 17:18:00 7.0 Below low normal 12.0-15.3 (g/dL) Final HCT 08/19/2023 17:18:00 21.4 Below low normal 36.0-45.2 (%) Final MCV 08/19/2023 17:18:00 89.2 81.5-97.5 (fL) Final MCH 08/19/2023 17:18:00 29.2 27.0-34.0 (pg) Final MCHC 08/19/2023 17:18:00 32.7 32.0-36.0 (g/dL) Final RDW 08/19/2023 17:18:00 15.3 11.5-15.5 (%) Final Platelets 08/19/2023 17:18:00 119 Below low normal 140-400 (K/uL) Final MPV 08/19/2023 17:18:00 10.1 6.6-11.1 (fL) Final Nucleated erythrocytes/100 leukocytes [Ratio] in Blood by Automated count 08/19/2023 17:18:00 0 <=0 (/100 WBCs) Final Performing Location [facility]ORY [facility] [place] - [address] [place] [address]
--- OUTSIDE RECORDS SUMMARY | 2023-09-22 13:25 | External Medical Summary ---
Author Name Unknown Address Unknown Organization K01:[facility] [place] [address] [place] [address] Laboratory Report Ordering Provider Test Date Status DAVID LUJAN 08/22/2023 17:58:00 Final Observation Date Value Abnormality Reference (Units ) Status WBC, Total 08/22/2023 17:58:00 14.28 Above high normal 4.00-10.80 (K/uL) Final RBC 08/22/2023 17:58:00 2.94 3.85-5.15 (M/uL) Final Hemoglobin 08/22/2023 17:58:00 8.6 Below low normal 12.0-15.3 (g/dL) Final HCT 08/22/2023 17:58:00 26.4 Below low normal 36.0-45.2 (%) Final MCV 08/22/2023 17:58:00 89.8 81.5-97.5 (fL) Final MCH 08/22/2023 17:58:00 29.3 27.0-34.0 (pg) Final MCHC 08/22/2023 17:58:00 32.6 32.0-36.0 (g/dL) Final RDW 08/22/2023 17:58:00 16.3 11.5-15.5 (%) Final Platelets 08/22/2023 17:58:00 215 140-400 (K/uL) Final MPV 08/22/2023 17:58:00 10.3 6.6-11.1 (fL) Final Nucleated erythrocytes/100 leukocytes [Ratio] in Blood by Automated count 08/22/2023 17:58:00 0 <=0 (/100 WBCs) Final Performing Location [facility] [place] [address] [place] [address]
--- OUTSIDE RECORDS SUMMARY | 2023-09-22 13:25 | External Medical Summary ---
Author Name Unknown Address Unknown Organization K01:[facility] [place] [address] [place] [address] Laboratory Report Ordering Provider Test Date Status PETTY HENRIK 08/19/2023 04:50:00 Final Observation Date Value Abnormality Reference (Units ) Status BUN 08/19/2023 04:50:00 20 6-20 (mg/dL) Final Creatinine 08/19/2023 04:50:00 1.0 0.5-1.0 (mg/dL) Final Glomerular filtration rate/1.73 sq M.predicted [Volume Rate/Area] in Serum, Plasma or Blood by Creatinine-based formula (CKD-EPI) 08/19/2023 04:50:00 61 >=60 (mL/min) Final eGFR is calculated based on the CKD-EPI 2020 equation Sodium 08/19/2023 04:50:00 136 135-146 (m mol/L) Final Potassium 08/19/2023 04:50:00 4.3 3.5-5.1 (m mol/L) Final Cl 08/19/2023 04:50:00 106 98-107 (mm ol/L) Final CO2 08/19/2023 04:50:00 22 22-32 (mmo l/L) Final Anion gap 08/19/2023 04:50:00 8 7-15 (mmol /L) Final Glucose 08/19/2023 04:50:00 113 70-120 (mg /dL) Final Calcium 08/19/2023 04:50:00 8.3 Below low normal 8.4 -10.2 (mg/dL) Final Performing Location [facility] [place] [address] [place] [address]
--- OUTSIDE RECORDS SUMMARY | 2023-09-22 13:25 | External Medical Summary ---
Author Name Unknown Address Unknown Organization K01:[facility] [place] [address] [place] [address] Laboratory Report Ordering Provider Test Date Status DAVID LUJAN 08/25/2023 04:26:00 Final Observation Date Value Abnormality Reference (Units ) Status WBC, Total 08/25/2023 04:26:00 15.44 Above high normal 4.00-10.80 (K/uL) Final RBC 08/25/2023 04:26:00 2.73 3.85-5.15 (M/uL) Final Hemoglobin 08/25/2023 04:26:00 8.1 Below low normal 12.0-15.3 (g/dL) Final HCT 08/25/2023 04:26:00 26.2 Below low normal 36.0-45.2 (%) Final MCV 08/25/2023 04:26:00 96.0 81.5-97.5 (fL) Final MCH 08/25/2023 04:26:00 29.7 27.0-34.0 (pg) Final MCHC 08/25/2023 04:26:00 30.9 32.0-36.0 (g/dL) Final RDW 08/25/2023 04:26:00 18.0 11.5-15.5 (%) Final Platelets 08/25/2023 04:26:00 324 140-400 (K/uL) Final MPV 08/25/2023 04:26:00 10.2 6.6-11.1 (fL) Final Nucleated erythrocytes/100 leukocytes [Ratio] in Blood by Automated count 08/25/2023 04:26:00 0 <=0 (/100 WBCs) Final Performing Location [facility] [place] [address] [place] [address]
--- OUTSIDE RECORDS SUMMARY | 2023-09-22 13:25 | External Medical Summary ---
Author Name Unknown Address Unknown Organization K01:LABORATORY [facility] - [address] [place] [address] Laboratory Report Ordering Provider Test Date Status PETTY HENRIK 08/25/2023 04:26:00 Final Observation Date Value Abnormality Reference (Units ) Status Magnesium 08/25/2023 04:26:00 2.0 1.5-2.6 (m g/dL) Final Performing Location LABORATORY [facility] - [address] [place] [address]
--- OUTSIDE RECORDS SUMMARY | 2023-09-22 13:25 | External Medical Summary ---
Author Name Unknown Address Unknown Organization K01:[facility]ORY [facility] [place] - [address] [place] [address] Laboratory Report Ordering Provider Test Date Status DAVID LUJAN 08/20/2023 04:19:00 Final Observation Date Value Abnormality Reference (Units ) Status WBC, Total 08/20/2023 04:19:00 16.95 Above high normal 4.00-10.80 (K/uL) Final RBC 08/20/2023 04:19:00 2.47 3.85-5.15 (M/uL) Final Hemoglobin 08/20/2023 04:19:00 7.4 Below low normal 12.0-15.3 (g/dL) Final HCT 08/20/2023 04:19:00 21.9 Below low normal 36.0-45.2 (%) Final MCV 08/20/2023 04:19:00 88.7 81.5-97.5 (fL) Final MCH 08/20/2023 04:19:00 30.0 27.0-34.0 (pg) Final MCHC 08/20/2023 04:19:00 33.8 32.0-36.0 (g/dL) Final RDW 08/20/2023 04:19:00 15.6 11.5-15.5 (%) Final Platelets 08/20/2023 04:19:00 108 Below low normal 140-400 (K/uL) Final MPV 08/20/2023 04:19:00 10.9 6.6-11.1 (fL) Final Nucleated erythrocytes/100 leukocytes [Ratio] in Blood by Automated count 08/20/2023 04:19:00 0 <=0 (/100 WBCs) Final Performing Location LABORATORY [facility] - [address] [place] [address]
--- OUTSIDE RECORDS SUMMARY | 2023-09-22 13:25 | External Medical Summary ---
Author Name Unknown Address Unknown Organization K01:[facility] [place] - [facility] [address] [place] [address] Laboratory Report Ordering Provider Test Date Status ANNUM,HAYAT 08/19/2023 09:33:00 Final Observation Date Value Abnormality Reference (Units ) Status WBC, Total 08/19/2023 09:33:00 18.07 Above high normal 4.00-10.80 (K/uL) Final RBC 08/19/2023 09:33:00 2.73 3.85-5.15 (M/uL) Final Hemoglobin 08/19/2023 09:33:00 8.0 Below low normal 12.0-15.3 (g/dL) Final HCT 08/19/2023 09:33:00 24.4 Below low normal 36.0-45.2 (%) Final MCV 08/19/2023 09:33:00 89.4 81.5-97.5 (fL) Final MCH 08/19/2023 09:33:00 29.3 27.0-34.0 (pg) Final MCHC 08/19/2023 09:33:00 32.8 32.0-36.0 (g/dL) Final RDW 08/19/2023 09:33:00 15.4 11.5-15.5 (%) Final Platelets 08/19/2023 09:33:00 126 Below low normal 140-400 (K/uL) Final MPV 08/19/2023 09:33:00 10.9 6.6-11.1 (fL) Final Nucleated erythrocytes/100 leukocytes [Ratio] in Blood by Automated count 08/19/2023 09:33:00 0 <=0 (/100 WBCs) Final Performing Location LAB[facility]ORY [facility] [place] - [address] [place] [address]
--- OUTSIDE RECORDS SUMMARY | 2023-09-22 13:25 | External Medical Summary ---
Author Name Unknown Address Unknown Organization K01:[facility] [place] [address] [place] [address] Laboratory Report Ordering Provider Test Date Status PETTY HENRIK 08/23/2023 04:16:00 Final Observation Date Value Abnormality Reference (Units ) Status BUN 08/23/2023 04:16:00 28 Above high normal 6-20 (mg/dL) Final Creatinine 08/23/2023 04:16:00 0.9 0.5-1.0 (mg/dL) Final Glomerular filtration rate/1.73 sq M.predicted [Volume Rate/Area] in Serum, Plasma or Blood by Creatinine-based formula (CKD-EPI) 08/23/2023 04:16:00 69 >=60 (mL/min) Final eGFR is calculated based on the CKD-EPI 2020 equation Sodium 08/23/2023 04:16:00 138 135-146 (m mol/L) Final Potassium 08/23/2023 04:16:00 3.6 3.5-5.1 (m mol/L) Final Cl 08/23/2023 04:16:00 105 98-107 (mm ol/L) Final CO2 08/23/2023 04:16:00 23 22-32 (mmo l/L) Final Anion gap 08/23/2023 04:16:00 10 7-15 (mmol /L) Final Glucose 08/23/2023 04:16:00 118 70-120 (mg /dL) Final Calcium 08/23/2023 04:16:00 8.2 Below low normal 8.4 -10.2 (mg/dL) Final Performing Location [facility] [place] [address] [place] [address]
--- OUTSIDE RECORDS SUMMARY | 2023-09-22 13:25 | External Medical Summary ---
Author Name Unknown Address Unknown Organization K01:[facility] [place] [facility] [address] [place] [address] Laboratory Report Ordering Provider Test Date Status GUNJAN GARCIA 08/19/2023 18:28:00 Final Draw Every 30 minutes:
Immediately before administration of cosyntropin (CORTROSYN),
30 minutes after administration of cosyntropin (CORTROSYN),
60 minutes after administration of cosyntropin (CORTROSYN)
(for Cosyntropin Stim Test) Observation Date Value Abnormality Reference (Units ) Status Cortisol 08/19/2023 18:28:00 6.9 2.5-19.5 ( ug/dL) Final AM Reference Range: 4.8 - 19 .5 ug/dL
PM Reference Range: 2.5 - 11.9 ug/dL Performing Location [facility] [place] [facility] [address] [place] [address]
--- OUTSIDE RECORDS SUMMARY | 2023-09-22 13:25 | External Medical Summary ---
Author Name Unknown Address Unknown Organization : Laboratory Report Ordering Provider Test Date Status CARTER CASTRO 08/19/2023 16:05:55 Final Observation Date Value Abnormality Reference (Units ) Status Glucose Point of Care 08/19/2023 16:05:55 128 Above high normal 70-120 (mg/dL) Final Performing Location
--- OUTSIDE RECORDS SUMMARY | 2023-09-22 13:25 | External Medical Summary ---
Author Name Unknown Address Unknown Organization K01:LABORATORY [facility] [place] - [address] [place] [address] Laboratory Report Ordering Provider Test Date Status DAVID LUJAN 08/24/2023 05:01:00 Final Observation Date Value Abnormality Reference (Units ) Status WBC, Total 08/24/2023 05:01:00 14.22 Above high normal 4.00-10.80 (K/uL) Final RBC 08/24/2023 05:01:00 2.82 3.85-5.15 (M/uL) Final Hemoglobin 08/24/2023 05:01:00 8.3 Below low normal 12.0-15.3 (g/dL) Final HCT 08/24/2023 05:01:00 26.2 Below low normal 36.0-45.2 (%) Final MCV 08/24/2023 05:01:00 92.9 81.5-97.5 (fL) Final MCH 08/24/2023 05:01:00 29.4 27.0-34.0 (pg) Final MCHC 08/24/2023 05:01:00 31.7 32.0-36.0 (g/dL) Final RDW 08/24/2023 05:01:00 16.2 11.5-15.5 (%) Final Platelets 08/24/2023 05:01:00 272 140-400 (K/uL) Final MPV 08/24/2023 05:01:00 10.2 6.6-11.1 (fL) Final Nucleated erythrocytes/100 leukocytes [Ratio] in Blood by Automated count 08/24/2023 05:01:00 0 <=0 (/100 WBCs) Final Performing Location LABORATORY [facility] [place] - [address] [place] [address]
--- OUTSIDE RECORDS SUMMARY | 2023-09-22 13:25 | External Medical Summary ---
Author Name Unknown Address Unknown Organization K01:LABORATORY [facility] - [address] [place] [address] Laboratory Report Ordering Provider Test Date Status PETTY HENRIK 08/25/2023 04:26:00 Final Observation Date Value Abnormality Reference (Units ) Status BUN 08/25/2023 04:26:00 42 Above high normal 6-20 (mg/dL) Final Creatinine 08/25/2023 04:26:00 1.1 Above high normal 0.5-1.0 (mg/dL) Final Glomerular filtration rate/1.73 sq M.predicted [Volume Rate/Area] in Serum, Plasma or Blood by Creatinine-based formula (CKD-EPI) 08/25/2023 04:26:00 56 Below low normal >=60 (mL/min) Final eGFR is calculated based on the CKD-EPI 2020 equation Sodium 08/25/2023 04:26:00 137 135-146 (m mol/L) Final Potassium 08/25/2023 04:26:00 4.4 3.5-5.1 (m mol/L) Final Cl 08/25/2023 04:26:00 106 98-107 (mm ol/L) Final CO2 08/25/2023 04:26:00 23 22-32 (mmo l/L) Final Anion gap 08/25/2023 04:26:00 8 7-15 (mmol /L) Final Glucose 08/25/2023 04:26:00 107 70-120 (mg /dL) Final Calcium 08/25/2023 04:26:00 8.4 8.4-10.2 ( mg/dL) Final Performing Location LABORATORY [facility] - [address] [place] [address]
--- OUTSIDE RECORDS SUMMARY | 2023-09-22 13:25 | External Medical Summary ---
Author Name Unknown Address Unknown Organization K01:[place] [facility] [place] [address] [place] [address] Laboratory Report Ordering Provider Test Date Status PETTY HENRIK 08/21/2023 04:35:00 Final Observation Date Value Abnormality Reference (Units ) Status BUN 08/21/2023 04:35:00 20 6-20 (mg/dL) Final Creatinine 08/21/2023 04:35:00 1.0 0.5-1.0 (mg/dL) Final Glomerular filtration rate/1.73 sq M.predicted [Volume Rate/Area] in Serum, Plasma or Blood by Creatinine-based formula (CKD-EPI) 08/21/2023 04:35:00 63 >=60 (mL/min) Final eGFR is calculated based on the CKD-EPI 2020 equation Sodium 08/21/2023 04:35:00 140 135-146 (m mol/L) Final Potassium 08/21/2023 04:35:00 4.2 3.5-5.1 (m mol/L) Final Cl 08/21/2023 04:35:00 110 Above high normal 98 -107 (mmol/L) Final CO2 08/21/2023 04:35:00 22 22-32 (mmo l/L) Final Anion gap 08/21/2023 04:35:00 8 7-15 (mmol /L) Final Glucose 08/21/2023 04:35:00 89 70-120 (mg /dL) Final Calcium 08/21/2023 04:35:00 8.2 Below low normal 8.4 -10.2 (mg/dL) Final Performing Location [place] [facility] [place] [address] [place] [address]
--- OUTSIDE RECORDS SUMMARY | 2023-09-22 13:25 | External Medical Summary ---
Author Name Unknown Address Unknown Organization K01:LABORATORY [facility] [place] - [address] [place] [address] Laboratory Report Ordering Provider Test Date Status PETTY HENRIK 08/24/2023 05:01:00 Final Observation Date Value Abnormality Reference (Units ) Status BUN 08/24/2023 05:01:00 36 Above high normal 6-20 (mg/dL) Final Creatinine 08/24/2023 05:01:00 1.1 Above high normal 0.5-1.0 (mg/dL) Final Glomerular filtration rate/1.73 sq M.predicted [Volume Rate/Area] in Serum, Plasma or Blood by Creatinine-based formula (CKD-EPI) 08/24/2023 05:01:00 54 Below low normal >=60 (mL/min) Final eGFR is calculated based on the CKD-EPI 2020 equation Sodium 08/24/2023 05:01:00 138 135-146 (m mol/L) Final Potassium 08/24/2023 05:01:00 5.1 3.5-5.1 (m mol/L) Final Cl 08/24/2023 05:01:00 106 98-107 (mm ol/L) Final CO2 08/24/2023 05:01:00 23 22-32 (mmo l/L) Final Anion gap 08/24/2023 05:01:00 9 7-15 (mmol /L) Final Glucose 08/24/2023 05:01:00 113 70-120 (mg /dL) Final Calcium 08/24/2023 05:01:00 8.5 8.4-10.2 ( mg/dL) Final Performing Location LABORATORY [facility] [place] - [address] [place] [address]
--- OUTSIDE RECORDS SUMMARY | 2023-09-22 13:25 | External Medical Summary ---
Author Name Unknown Address Unknown Organization : Laboratory Report Ordering Provider Test Date Status CARTER CASTRO 08/19/2023 17:02:52 Final Observation Date Value Abnormality Reference (Units ) Status Glucose Point of Care 08/19/2023 17:02:52 116 70-120 (mg/dL) Final Performing Location
--- OUTSIDE RECORDS SUMMARY | 2023-09-22 13:25 | External Medical Summary ---
Author Name Unknown Address Unknown Organization : Laboratory Report Ordering Provider Test Date Status CARTER CASTRO 08/19/2023 07:16:17 Final Observation Date Value Abnormality Reference (Units ) Status Glucose Point of Care 08/19/2023 07:16:17 108 70-120 (mg/dL) Final Performing Location
--- OUTSIDE RECORDS SUMMARY | 2023-09-22 13:25 | External Medical Summary ---
Author Name Unknown Address Unknown Organization K01:LABORATORY [facility] - [address] [place] [address] Laboratory Report Ordering Provider Test Date Status PETTY HENRIK 08/19/2023 04:50:00 Final Observation Date Value Abnormality Reference (Units ) Status Magnesium 08/19/2023 04:50:00 1.9 1.5-2.6 (m g/dL) Final Performing Location LABORATORY [facility] - [address] [place] [address]
--- OUTSIDE RECORDS SUMMARY | 2023-09-22 13:25 | External Medical Summary ---
Author Name Unknown Address Unknown Organization K01:LABORATORY [facility] - [address] [place] [address] Laboratory Report Ordering Provider Test Date Status PETTY HENRIK 08/25/2023 04:26:00 Final Observation Date Value Abnormality Reference (Units ) Status Phosphate 08/25/2023 04:26:00 3.5 2.5-4.8 (m g/dL) Final Performing Location LABORATORY [facility] - [address] [place] [address]
--- OUTSIDE RECORDS SUMMARY | 2023-09-22 13:25 | External Medical Summary ---
Author Name Unknown Address Unknown Organization K01:LABORATORY [facility] - [address] [place] [address] Laboratory Report Ordering Provider Test Date Status PETTY HENRIK 08/24/2023 05:01:00 Final Observation Date Value Abnormality Reference (Units ) Status Magnesium 08/24/2023 05:01:00 2.1 1.5-2.6 (m g/dL) Final Performing Location LABORATORY [facility] - [address] [place] [address]
--- OUTSIDE RECORDS SUMMARY | 2023-09-22 13:25 | External Medical Summary ---
Author Name Unknown Address Unknown Organization K01:LABORATORY [facility] - [address] [place] [address] Laboratory Report Ordering Provider Test Date Status PETTY HENRIK 08/22/2023 04:38:00 Final Observation Date Value Abnormality Reference (Units ) Status Magnesium 08/22/2023 04:38:00 1.7 1.5-2.6 (m g/dL) Final Performing Location LABORATORY [facility] - [address] [address]
--- OUTSIDE RECORDS SUMMARY | 2023-09-22 13:26 | External Medical Summary ---
Author Name Unknown Address Unknown Organization K01:[facility]ORY [facility] [place] [address] [address] Laboratory Report Ordering Provider Test Date Status PETTY HENRIK 08/17/2023 20:52:53 Final Observation Date Value Abnormality Reference (Units ) Status Body temperature 08/17/2023 20:52:53 37.0 (C) Final pH of Arterial blood 08/17/2023 20:52:53 7.258 Below low normal 7.350-7.450 (units) Final Carbon dioxide [Partial pressure] in Arterial blood 08/17/2023 20:52:53 44.3 35.0-45.0 (mmHg) Final Oxygen [Partial pressure] in Arterial blood 08/17/2023 20:52:53 110.0 Above high normal 75.0-100.0 (mmHg) Final Base excess, Arterial 08/17/2023 20:52:53 -7.1 Below low normal -2.0-2.0 (mmol/L) Final Hemoglobin [Mass/volume] in Blood by Oximetry 08/17/2023 20:52:53 8.7 Below low normal 12.0-15.3 (g/dL) Final Oxyhemoglobin, Arterial (FO2HB) 08/17/2023 20:52:53 97.8 94.0-99.0 (% total Hgb) Final Carboxyhemoglobin 08/17/2023 20:52:53 1.0 <=1.5 (% total Hgb) Final Smokers: 0-9.0 % Methemoglobin 08/17/2023 20:52:53 0.6 <=1.5 (% total Hgb) Final Deoxyhemoglobin/Hemog lobin.total in Arterial blood 08/17/2023 20:52:53 0.6 0.0-5.0 (% total Hgb) Final Oxygen content in Arterial blood 08/17/2023 20:52:53 12.1 Below low normal 15.0-24.0 (%vol) Final Oxygen/Total gas setting [Volume Fraction] Ventilator 08/17/2023 20:52:53 Not Provided (%) Final O2 FLOW, ARTERIAL - [facility] 08/17/2023 20:52:53 Not Provided (L/min) Final Bicarbonate, Venous, POC (i-STAT) 08/17/2023 20:52:53 19.1 Below low normal 23.0-31.0 (mmol/L) Final Performing Location LABORATORY [facility] [place] - [address] [facility] [address]
--- OUTSIDE RECORDS SUMMARY | 2023-09-22 13:26 | External Medical Summary ---
Author Name Unknown Address Unknown Organization K01:LABORATORY [facility] - [address] [place] [address] Laboratory Report Ordering Provider Test Date Status PETTY HENRIK 08/17/2023 20:51:44 Final Warfarin Therapy
INR: 2 .0-3.0 conventional anticoagulation
INR: 2.5- 3.5 high intensity anticoagulation Observation Date Value Abnormality Reference (Units ) Status PT 08/17/2023 20:51:44 15.8 Above high normal 11 .6-15.2 (seconds) Final INR 08/17/2023 20:51:44 1.3 Above high normal 0. 8-1.2 Final Performing Location LABORATORY [facility] - [address] [place] [address]
--- OUTSIDE RECORDS SUMMARY | 2023-09-22 13:26 | External Medical Summary ---
Author Name Unknown Address Unknown Organization K01:[place] [facility] [place] [address] [place] [address] Laboratory Report Ordering Provider Test Date Status PETTY HENRIK 08/17/2023 20:51:44 Final Observation Date Value Abnormality Reference (Units ) Status WBC, Total 08/17/2023 20:51:44 17.55 Above high normal 4.00-10.80 (K/uL) Final RBC 08/17/2023 20:51:44 2.94 3.85-5.15 (M/uL) Final Hemoglobin 08/17/2023 20:51:44 8.9 Below low normal 12.0-15.3 (g/dL) Final HCT 08/17/2023 20:51:44 26.5 Below low normal 36.0-45.2 (%) Final MCV 08/17/2023 20:51:44 90.1 81.5-97.5 (fL) Final MCH 08/17/2023 20:51:44 30.3 27.0-34.0 (pg) Final MCHC 08/17/2023 20:51:44 33.6 32.0-36.0 (g/dL) Final RDW 08/17/2023 20:51:44 13.8 11.5-15.5 (%) Final Platelets 08/17/2023 20:51:44 151 140-400 (K/uL) Final MPV 08/17/2023 20:51:44 9.8 6.6-11.1 (fL) Final Nucleated erythrocytes/100 leukocytes [Ratio] in Blood by Automated count 08/17/2023 20:51:44 0 <=0 (/100 WBCs) Final Performing Location [facility] [place] [address] [place] [address]
--- OUTSIDE RECORDS SUMMARY | 2023-09-22 13:26 | External Medical Summary ---
Author Name Unknown Address Unknown Organization K01:LABORATORY [facility] - [address] [place] [address] Laboratory Report Ordering Provider Test Date Status PETTY HENRIK 08/18/2023 03:13:11 Final Observation Date Value Abnormality Reference (Units ) Status Magnesium 08/18/2023 03:13:11 2.0 1.5-2.6 (m g/dL) Final Performing Location LABORATORY [facility] - [address] [address]
--- OUTSIDE RECORDS SUMMARY | 2023-09-22 13:26 | External Medical Summary ---
Author Name Unknown Address Unknown Organization K01:LABORATORY [facility] [place] - [address] [facility] [address] Laboratory Report Ordering Provider Test Date Status PETTY HENRIK 08/17/2023 20:51:44 Final Observation Date Value Abnormality Reference (Units) Status Clot formation [Time] in Blood by Thromboelastography 08/17/2023 20:51:44 2.6 2.5-8.3 (minutes) Final Clot strength in Blood by Thromboelastography 08/17/2023 20:51:44 1.1 0.5-3.7 (minutes) Final Clot angle in Blood by Thromboelastography 08/17/2023 20:51:44 74.6 46.8-78.4 (degrees) Final Maximum clot firmness [Length] in Blood by Thromboelastography 08/17/2023 20:51:44 66.9 50.6-72.5 (mm) Final Coagulation index in Blood by Thromboelastography 08/17/2023 20:51:44 4.0 Above high normal -3.0-3.0 Final Clot Lysis [Length fraction] in Blood by Thromboelastography --30 minutes post maximum clot amplitude 08/17/2023 20:51:44 0.0 0.0-7.5 (%) Final This is an appended report. These results have been appended to a previously preliminary verified report. Performing Location LABORATORY [facility] [place] - [address] [place] [address]
--- OUTSIDE RECORDS SUMMARY | 2023-09-22 13:26 | External Medical Summary ---
Author Name Unknown Address Unknown Organization K01:[place] [facility] [place] [address] [facility] [address] Laboratory Report Ordering Provider Test Date Status PETTY HENRIK 08/17/2023 20:51:44 Final Observation Date Value Abnormality Reference (Units ) Status Lactic Acid 08/17/2023 20:51:44 1.1 0.4-2.0 (mmol/L) Final Performing Location LABORATORY [facility] - [address] [place] [address]
--- OUTSIDE RECORDS SUMMARY | 2023-09-22 13:26 | External Medical Summary ---
Author Name Unknown Address Unknown Organization K01:LABORATORY [facility] [place] - [address] [place] [address] Laboratory Report Ordering Provider Test Date Status PETTY HENRIK 08/18/2023 03:13:11 Final Observation Date Value Abnormality Reference (Units ) Status BUN 08/18/2023 03:13:11 35 Above high normal 6-20 (mg/dL) Final Creatinine 08/18/2023 03:13:11 0.9 0.5-1.0 (mg/dL) Final Glomerular filtration rate/1.73 sq M.predicted [Volume Rate/Area] in Serum, Plasma or Blood by Creatinine-based formula (CKD-EPI) 08/18/2023 03:13:11 72 >=60 (mL/min) Final eGFR is calculated based on the CKD-EPI 2020 equation Sodium 08/18/2023 03:13:11 137 135-146 (m mol/L) Final Potassium 08/18/2023 03:13:11 4.4 3.5-5.1 (m mol/L) Final Cl 08/18/2023 03:13:11 108 Above high normal 98 -107 (mmol/L) Final CO2 08/18/2023 03:13:11 16 Below low normal 22- 32 (mmol/L) Final Anion gap 08/18/2023 03:13:11 13 7-15 (mmol /L) Final Glucose 08/18/2023 03:13:11 163 Above high normal 70 -120 (mg/dL) Final Calcium 08/18/2023 03:13:11 7.5 Below low normal 8.4 -10.2 (mg/dL) Final Performing Location LABORATORY [facility] [place] - [address] [place] [address]
--- OUTSIDE RECORDS SUMMARY | 2023-09-22 13:26 | External Medical Summary ---
Author Name Unknown Address Unknown Organization K01:LABORATORY [facility] - [address] [place] [address] Laboratory Report Ordering Provider Test Date Status PETTY HENRIK 08/17/2023 20:51:44 Final Observation Date Value Abnormality Reference (Units ) Status Magnesium 08/17/2023 20:51:44 1.9 1.5-2.6 (m g/dL) Final Performing Location LABORATORY [facility] - [address] [place] [address]
--- OUTSIDE RECORDS SUMMARY | 2023-09-22 13:26 | External Medical Summary ---
Author Name Unknown Address Unknown Organization K01:LABORATORY [facility] [place] - [address] [place] [address] Laboratory Report Ordering Provider Test Date Status UMM IBRAHIM 08/18/2023 18:42:00 Final Observation Date Value Abnormality Reference (Units ) Status WBC, Total 08/18/2023 18:42:00 16.68 Above high normal 4.00-10.80 (K/uL) Final RBC 08/18/2023 18:42:00 2.83 3.85-5.15 (M/uL) Final Hemoglobin 08/18/2023 18:42:00 8.2 Below low normal 12.0-15.3 (g/dL) Final HCT 08/18/2023 18:42:00 25.4 Below low normal 36.0-45.2 (%) Final MCV 08/18/2023 18:42:00 89.8 81.5-97.5 (fL) Final MCH 08/18/2023 18:42:00 29.0 27.0-34.0 (pg) Final MCHC 08/18/2023 18:42:00 32.3 32.0-36.0 (g/dL) Final RDW 08/18/2023 18:42:00 15.0 11.5-15.5 (%) Final Platelets 08/18/2023 18:42:00 111 Below low normal 140-400 (K/uL) Final MPV 08/18/2023 18:42:00 10.3 6.6-11.1 (fL) Final Nucleated erythrocytes/100 leukocytes [Ratio] in Blood by Automated count 08/18/2023 18:42:00 0 <=0 (/100 WBCs) Final Performing Location LABORATORY [facility] - [address] [place] [address]
--- OUTSIDE RECORDS SUMMARY | 2023-09-22 13:26 | External Medical Summary ---
Author Name Unknown Address Unknown Organization K01:[place] [facility] [place] [address] [address] Laboratory Report Ordering Provider Test Date Status SUNG NELSON 08/17/2023 17:30:48 Final Observation Date Value Abnormality Reference (Units ) Status Body temperature 08/17/2023 17:30:48 37.0 (C) Final pH of Arterial blood 08/17/2023 17:30:48 7.247 Below low normal 7.350-7.450 (units) Final Carbon dioxide [Partial pressure] in Arterial blood 08/17/2023 17:30:48 40.4 35.0-45.0 (mmHg) Final Oxygen [Partial pressure] in Arterial blood 08/17/2023 17:30:48 161.0 Above high normal 75.0-100.0 (mmHg) Final Base excess, Arterial 08/17/2023 17:30:48 -9.1 Below low normal -2.0-2.0 (mmol/L) Final Hemoglobin [Mass/volume] in Blood by Oximetry 08/17/2023 17:30:48 8.1 Below low normal 12.0-15.3 (g/dL) Final Oxyhemoglobin, Arterial (FO2HB) 08/17/2023 17:30:48 98.0 94.0-99.0 (% total Hgb) Final Carboxyhemoglobin 08/17/2023 17:30:48 0.9 <=1.5 (% total Hgb) Final Smokers: 0-9.0 % Methemoglobin 08/17/2023 17:30:48 0.6 <=1.5 (% total Hgb) Final Deoxyhemoglobin/Hemog lobin.total in Arterial blood 08/17/2023 17:30:48 0.5 0.0-5.0 (% total Hgb) Final Oxygen content in Arterial blood 08/17/2023 17:30:48 11.6 Below low normal 15.0-24.0 (%vol) Final Potassium, Whole Blood 08/17/2023 17:30:48 4.2 3.5-5.1 (mmol/L) Final Sodium, Whole Blood 08/17/2023 17:30:48 140 135-146 (mmol/L) Final Chloride, Whole Blood 08/17/2023 17:30:48 111 Above high normal 98-107 (mmol/L) Final Calcium.ionized [Moles/volume] in Blood by Ion-selective membrane electrode (ISE) 08/17/2023 17:30:48 1.22 1.13-1.32 (mmol/L) Final Anion gap, Whole Blood 08/17/2023 17:30:48 11.6 7.0-15.0 (mmol/L) Final Glucose, whole blood 08/17/2023 17:30:48 125 Above high normal 70-120 (mg/dL) Final Oxygen/Total gas setting [Volume Fraction] Ventilator 08/17/2023 17:30:48 Not Provided (%) Final O2 FLOW, ARTERIAL - [facility] 08/17/2023 17:30:48 Not Provided (L/min) Final Bicarbonate, Venous, POC (i-STAT) 08/17/2023 17:30:48 17.0 Below low normal 23.0-31.0 (mmol/L) Final Performing Location [facility] [place] [address] [facility] [address]
--- OUTSIDE RECORDS SUMMARY | 2023-09-22 13:26 | External Medical Summary ---
Author Name Unknown Address Unknown Organization : Laboratory Report Ordering Provider Test Date Status CARTER CASTRO 08/18/2023 21:27:06 Final Observation Date Value Abnormality Reference (Units ) Status Glucose Point of Care 08/18/2023 21:27:06 95 70-120 (mg/dL) Final Performing Location
--- OUTSIDE RECORDS SUMMARY | 2023-09-22 13:26 | External Medical Summary ---
Author Name Unknown Address Unknown Organization K01:LABORATORY [facility] - [facility] [address] [place] [address] Laboratory Report Ordering Provider Test Date Status PETTY HENRIK 08/17/2023 23:42:06 Final Observation Date Value Abnormality Reference (Units ) Status WBC, Total 08/17/2023 23:42:06 26.46 Above high normal 4.00-10.80 (K/uL) Final RBC 08/17/2023 23:42:06 3.08 3.85-5.15 (M/uL) Final Hemoglobin 08/17/2023 23:42:06 9.1 Below low normal 12.0-15.3 (g/dL) Final HCT 08/17/2023 23:42:06 27.2 Below low normal 36.0-45.2 (%) Final MCV 08/17/2023 23:42:06 88.3 81.5-97.5 (fL) Final MCH 08/17/2023 23:42:06 29.5 27.0-34.0 (pg) Final MCHC 08/17/2023 23:42:06 33.5 32.0-36.0 (g/dL) Final RDW 08/17/2023 23:42:06 14.2 11.5-15.5 (%) Final Platelets 08/17/2023 23:42:06 160 140-400 (K/uL) Final MPV 08/17/2023 23:42:06 9.9 6.6-11.1 (fL) Final Nucleated erythrocytes/100 leukocytes [Ratio] in Blood by Automated count 08/17/2023 23:42:06 0 <=0 (/100 WBCs) Final Performing Location LABORATORY [facility] - [address] [place] [address]
--- OUTSIDE RECORDS SUMMARY | 2023-09-22 13:26 | External Medical Summary ---
Author Name Unknown Address Unknown Organization K01:[place] [place] [address] [place] [address] Laboratory Report Ordering Provider Test Date Status CARTER CASTRO 08/18/2023 12:27:09 Final Observation Date Value Abnormality Reference (Units ) Status Lactic Acid 08/18/2023 12:27:09 2.2 Above high normal 0.4-2.0 (mmol/L) Final Performing Location [facility] [place] [address] [place] [address]
--- OUTSIDE RECORDS SUMMARY | 2023-09-22 13:26 | External Medical Summary ---
Author Name Unknown Address Unknown Organization K01:LABORATORY [facility] [place] - [facility] [address] [place] [address] Laboratory Report Ordering Provider Test Date Status ANNUM,HAY 08/19/2023 04:50:00 Final Observation Date Value Abnormality Reference (Units ) Status WBC, Total 08/19/2023 04:50:00 17.51 Above high normal 4.00-10.80 (K/uL) Final RBC 08/19/2023 04:50:00 2.81 3.85-5.15 (M/uL) Final Hemoglobin 08/19/2023 04:50:00 8.3 Below low normal 12.0-15.3 (g/dL) Final HCT 08/19/2023 04:50:00 24.8 Below low normal 36.0-45.2 (%) Final MCV 08/19/2023 04:50:00 88.3 81.5-97.5 (fL) Final MCH 08/19/2023 04:50:00 29.5 27.0-34.0 (pg) Final MCHC 08/19/2023 04:50:00 33.5 32.0-36.0 (g/dL) Final RDW 08/19/2023 04:50:00 15.1 11.5-15.5 (%) Final Platelets 08/19/2023 04:50:00 112 Below low normal 140-400 (K/uL) Final MPV 08/19/2023 04:50:00 10.8 6.6-11.1 (fL) Final Nucleated erythrocytes/100 leukocytes [Ratio] in Blood by Automated count 08/19/2023 04:50:00 0 <=0 (/100 WBCs) Final Performing Location LABORATORY [facility] [place] - [address] [place] [address]
--- OUTSIDE RECORDS SUMMARY | 2023-09-22 13:26 | External Medical Summary ---
Author Name Unknown Address Unknown Organization K01:LABORATORY [facility] - [address] [place] [address] Laboratory Report Ordering Provider Test Date Status PETTY HENRIK 08/18/2023 03:13:11 Final Observation Date Value Abnormality Reference (Units ) Status Phosphate 08/18/2023 03:13:11 3.3 2.5-4.8 (m g/dL) Final Performing Location LABORATORY [facility] - [address] [place] [address]
--- OUTSIDE RECORDS SUMMARY | 2023-09-22 13:26 | External Medical Summary ---
Author Name Unknown Address Unknown Organization K01:LAB[place]ORY [facility] [place] [address] [facility] [address] Laboratory Report Ordering Provider Test Date Status PETTY HENRIK 08/17/2023 21:30:06 Final Observation Date Value Abnormality Reference (Units ) Status Color of Urine by Auto 08/17/2023 21:30:06 Colorless Colorless, Light Yellow, Yellow, Dark Yellow Final Clarity, Urine 08/17/2023 21:30:06 Clear Clear Final Glucose [Mass/volume] in Urine by Automated test strip 08/17/2023 21:30:06 Negative Negative (mg/dL) Final Bilirubin.total [Presence] in Urine by Automated test strip 08/17/2023 21:30:06 Negative Negative Final Ketones [Mass/volume] in Urine by Automated test strip 08/17/2023 21:30:06 Negative Negative (mg/dL) Final Specific gravity, Urine 08/17/2023 21:30:06 1.027 1.003-1.030 Final Hemoglobin [Presence] in Urine by Automated test strip 08/17/2023 21:30:06 Trace Abnormal Negative Final pH, Urine 08/17/2023 21:30:06 5.0 5.0-7.5 (Units) Final Protein [Mass/volume] in Urine by Automated test strip 08/17/2023 21:30:06 Negative Negative (mg/dL) Final Urobilinogen [Mass/volume] in Urine by Automated test strip 08/17/2023 21:30:06 Normal Normal (mg/dL) Final Nitrite [Presence] in Urine by Automated test strip 08/17/2023 21:30:06 Negative Negative Final Leukocyte esterase [Presence] in Urine by Automated test strip 08/17/2023 21:30:06 Negative Negative Final RBC, Urine 08/17/2023 21:30:06 0-2 0-2 (/HPF) Final WBC, Urine 08/17/2023 21:30:06 0-2 0-2 (/HPF) Final Bacteria [#/area] in Urine sediment by Microscopy high power field 08/17/2023 21:30:06 0-25 0-25 (/HPF) Final Hyaline casts, Urine 08/17/2023 21:30:06 5-9 Abnormal None (/LPF) Final CULTURE, URINE - [facility] 08/17/2023 21:30:06 Final Culture not indicated by uri nalysis results\X09\ Performing Location LAB[facility]ATORY [facility] [place] [address] [facility] [address]
--- OUTSIDE RECORDS SUMMARY | 2023-09-22 13:26 | External Medical Summary ---
Author Name Unknown Address Unknown Organization K01:LABORATORY [facility] [place] - [address] [facility] [address] Laboratory Report Ordering Provider Test Date Status UMM IBRAHIM 08/18/2023 18:42:00 Final Observation Date Value Abnormality Reference (Units ) Status Lactic Acid 08/18/2023 18:42:00 2.0 0.4-2.0 (mmol/L) Final Performing Location LABORATORY [facility] [place] - [address] [facility] [address]
--- OUTSIDE RECORDS SUMMARY | 2023-09-22 13:26 | External Medical Summary ---
Author Name Unknown Address Unknown Organization K01:LABORATORY [facility] [place] - [address] [facility] [address] Laboratory Report Ordering Provider Test Date Status SUNG NELSON 08/17/2023 19:11:43 Final Observation Date Value Abnormality Reference (Units ) Status Body temperature 08/17/2023 19:11:43 37.0 (C) Final pH of Arterial blood 08/17/2023 19:11:43 7.262 Below low normal 7.350-7.450 (units) Final Carbon dioxide [Partial pressure] in Arterial blood 08/17/2023 19:11:43 43.3 35.0-45.0 (mmHg) Final Oxygen [Partial pressure] in Arterial blood 08/17/2023 19:11:43 129.0 Above high normal 75.0-100.0 (mmHg) Final Base excess, Arterial 08/17/2023 19:11:43 -7.2 Below low normal -2.0-2.0 (mmol/L) Final Hemoglobin [Mass/volume] in Blood by Oximetry 08/17/2023 19:11:43 9.7 Below low normal 12.0-15.3 (g/dL) Final Oxyhemoglobin, Arterial (FO2HB) 08/17/2023 19:11:43 97.4 94.0-99.0 (% total Hgb) Final Carboxyhemoglobin 08/17/2023 19:11:43 0.9 <=1.5 (% total Hgb) Final Smokers: 0-9.0 % Methemoglobin 08/17/2023 19:11:43 0.7 <=1.5 (% total Hgb) Final Deoxyhemoglobin/Hemog lobin.total in Arterial blood 08/17/2023 19:11:43 1.0 0.0-5.0 (% total Hgb) Final Oxygen content in Arterial blood 08/17/2023 19:11:43 13.5 Below low normal 15.0-24.0 (%vol) Final Potassium, Whole Blood 08/17/2023 19:11:43 4.2 3.5-5.1 (mmol/L) Final Sodium, Whole Blood 08/17/2023 19:11:43 138 135-146 (mmol/L) Final Chloride, Whole Blood 08/17/2023 19:11:43 110 Above high normal 98-107 (mmol/L) Final Calcium.ionized [Moles/volume] in Blood by Ion-selective membrane electrode (ISE) 08/17/2023 19:11:43 1.02 Below low normal 1.13-1.32 (mmol/L) Final Anion gap, Whole Blood 08/17/2023 19:11:43 8.6 7.0-15.0 (mmol/L) Final Glucose, whole blood 08/17/2023 19:11:43 149 Above high normal 70-120 (mg/dL) Final Oxygen/Total gas setting [Volume Fraction] Ventilator 08/17/2023 19:11:43 Not Provided (%) Final O2 FLOW, ARTERIAL - [facility] 08/17/2023 19:11:43 Not Provided (L/min) Final Bicarbonate, Venous, POC (i-STAT) 08/17/2023 19:11:43 18.9 Below low normal 23.0-31.0 (mmol/L) Final Performing Location LABORATORY [facility] [place] - [address] [facility] [address]
--- OUTSIDE RECORDS SUMMARY | 2023-09-22 13:26 | External Medical Summary ---
Author Name Unknown Address Unknown Organization K01:LABORATORY [facility] [place] - [address] [facility] [address] Laboratory Report Ordering Provider Test Date Status ANNUM,HAYAT 08/18/2023 12:27:23 Final Observation Date Value Abnormality Reference (Units ) Status Body temperature 08/18/2023 12:27:23 37.0 (C) Final pH of Arterial blood 08/18/2023 12:27:23 7.343 Below low normal 7.350-7.450 (units) Final Carbon dioxide [Partial pressure] in Arterial blood 08/18/2023 12:27:23 36.6 35.0-45.0 (mmHg) Final Oxygen [Partial pressure] in Arterial blood 08/18/2023 12:27:23 126.0 Above high normal 75.0-100.0 (mmHg) Final Base excess, Arterial 08/18/2023 12:27:23 -5.3 Below low normal -2.0-2.0 (mmol/L) Final Hemoglobin [Mass/volume] in Blood by Oximetry 08/18/2023 12:27:23 6.5 Below low normal 12.0-15.3 (g/dL) Final Oxyhemoglobin, Arterial (FO2HB) 08/18/2023 12:27:23 96.6 94.0-99.0 (% total Hgb) Final Carboxyhemoglobin 08/18/2023 12:27:23 1.6 Above high normal <=1.5 (% total Hgb) Final Smokers: 0-9.0 % Methemoglobin 08/18/2023 12:27:23 0.7 <=1.5 (% total Hgb) Final Deoxyhemoglobin/Hemog lobin.total in Arterial blood 08/18/2023 12:27:23 1.1 0.0-5.0 (% total Hgb) Final Oxygen content in Arterial blood 08/18/2023 12:27:23 9.1 Below low normal 15.0-24.0 (%vol) Final Oxygen/Total gas setting [Volume Fraction] Ventilator 08/18/2023 12:27:23 Not Provided (%) Final O2 FLOW, ARTERIAL - [facility] 08/18/2023 12:27:23 Not Provided (L/min) Final Bicarbonate, Venous, POC (i-STAT) 08/18/2023 12:27:23 19.4 Below low normal 23.0-31.0 (mmol/L) Final Performing Location LABORATORY [facility] [place] [place] - [address] [facility] [address]
--- OUTSIDE RECORDS SUMMARY | 2023-09-22 13:26 | External Medical Summary ---
Author Name Unknown Address Unknown Organization : Laboratory Report Ordering Provider Test Date Status CHICO MAI 08/17/2023 13:21:13 Final Observation Date Value Abnormality Reference (Units ) Status Glucose Point of Care 08/17/2023 13:21:13 90 70-120 (mg/dL) Final Performing Location
--- OUTSIDE RECORDS SUMMARY | 2023-09-22 13:26 | External Medical Summary ---
Author Name Unknown Address Unknown Organization K01:LABORATORY [facility] - [address] [place] [address] Laboratory Report Ordering Provider Test Date Status PETTY HENRIK 08/17/2023 20:51:44 Final Observation Date Value Abnormality Reference (Units ) Status Phosphate 08/17/2023 20:51:44 3.3 2.5-4.8 (m g/dL) Final Performing Location LABORATORY [facility] - [address] [place] [address]
--- OUTSIDE RECORDS SUMMARY | 2023-09-22 13:26 | External Medical Summary ---
Author Name Unknown Address Unknown Organization K01:LABORATORY [facility] [place] - [facility] [address] [place] [address] Laboratory Report Ordering Provider Test Date Status ANNUM,HAYAT 08/18/2023 23:14:00 Final Observation Date Value Abnormality Reference (Units ) Status WBC, Total 08/18/2023 23:14:00 17.29 Above high normal 4.00-10.80 (K/uL) Final RBC 08/18/2023 23:14:00 2.76 3.85-5.15 (M/uL) Final Hemoglobin 08/18/2023 23:14:00 8.2 Below low normal 12.0-15.3 (g/dL) Final HCT 08/18/2023 23:14:00 25.0 Below low normal 36.0-45.2 (%) Final MCV 08/18/2023 23:14:00 90.6 81.5-97.5 (fL) Final MCH 08/18/2023 23:14:00 29.7 27.0-34.0 (pg) Final MCHC 08/18/2023 23:14:00 32.8 32.0-36.0 (g/dL) Final RDW 08/18/2023 23:14:00 15.2 11.5-15.5 (%) Final Platelets 08/18/2023 23:14:00 111 Below low normal 140-400 (K/uL) Final MPV 08/18/2023 23:14:00 10.7 6.6-11.1 (fL) Final Nucleated erythrocytes/100 leukocytes [Ratio] in Blood by Automated count 08/18/2023 23:14:00 0 <=0 (/100 WBCs) Final Performing Location LABORATORY [facility] [place] - [address] [place] [address]
--- OUTSIDE RECORDS SUMMARY | 2023-09-22 13:26 | External Medical Summary ---
Author Name Unknown Address Unknown Organization K01:LABORATORY [facility] [place] [address] [facility] [address] Laboratory Report Ordering Provider Test Date Status PETTY HENRIK 08/17/2023 20:51:44 Final If R time > 20 minutes and n o clot formed suggesting hypocoagulable state or interfering substance (anticoagulation). Consider resubmitting a new sample and/or checking PT/INR, aPTT, fibrinogen, and platelet count. Observation Date Value Abnormality Reference (Units ) Status Clot formation [Time] in Blood by Thromboelastography 08/17/2023 20:51:44 3.7 2.5-8.3 (minutes) Final Clot strength in Blood by Thromboelastography 08/17/2023 20:51:44 1.2 0.5-3.7 (minutes) Final Clot angle in Blood by Thromboelastography 08/17/2023 20:51:44 72.5 46.8-78.4 (degrees) Final Maximum clot firmness [Length] in Blood by Thromboelastography 08/17/2023 20:51:44 65.7 50.6-72.5 (mm) Final Coagulation index in Blood b y Thromboelastography 08/17/2023 20:51:44 2.9 -3.0-3.0 Final Clot Lysis [Length fraction] in Blood by Thromboelastography --30 minutes post maximum clot amplitude 08/17/2023 20:51:44 0.0 0.0-7.5 (%) Final This is an appended report. These results have been appended to a previously preliminary verified report. Performing Location LABORATORY [facility] [place] - [address] [place] [address]
--- OUTSIDE RECORDS SUMMARY | 2023-09-22 13:26 | External Medical Summary ---
Author Name Unknown Address Unknown Organization K01:LAB[place]ATORY [facility] [facility] [place] - [facility] [address] [place] [address] Laboratory Report Ordering Provider Test Date Status ANNUM,HAYAT 08/18/2023 15:28:25 Final Observation Date Value Abnormality Reference (Units ) Status WBC, Total 08/18/2023 15:28:25 13.71 Above high normal 4.00-10.80 (K/uL) Final RBC 08/18/2023 15:28:25 2.10 3.85-5.15 (M/uL) Final Hemoglobin 08/18/2023 15:28:25 6.1 Below low normal 12.0-15.3 (g/dL) Final HCT 08/18/2023 15:28:25 18.3 Below low normal 36.0-45.2 (%) Final MCV 08/18/2023 15:28:25 87.1 81.5-97.5 (fL) Final MCH 08/18/2023 15:28:25 29.0 27.0-34.0 (pg) Final MCHC 08/18/2023 15:28:25 33.3 32.0-36.0 (g/dL) Final RDW 08/18/2023 15:28:25 14.6 11.5-15.5 (%) Final Platelets 08/18/2023 15:28:25 124 Below low normal 140-400 (K/uL) Final MPV 08/18/2023 15:28:25 10.6 6.6-11.1 (fL) Final Nucleated erythrocytes/100 leukocytes [Ratio] in Blood by Automated count 08/18/2023 15:28:25 0 <=0 (/100 WBCs) Final Performing Location LAB[place]ORY [facility] [place] [address] [place] [address]
--- OUTSIDE RECORDS SUMMARY | 2023-09-22 13:26 | External Medical Summary ---
Author Name Unknown Address Unknown Organization K01:LABORATORY [facility] [place] - [address] [facility] [address] Laboratory Report Ordering Provider Test Date Status PETTY HENRIK 08/18/2023 03:13:11 Final Observation Date Value Abnormality Reference (Units ) Status Lactic Acid 08/18/2023 03:13:11 1.5 0.4-2.0 (mmol/L) Final Performing Location LABORATORY [facility] - [address] [place] [address]
--- OUTSIDE RECORDS SUMMARY | 2023-09-22 13:26 | External Medical Summary ---
Author Name Unknown Address Unknown Organization K01:LABORATORY [facility] [place] [facility] - [address] [place] [address] Laboratory Report Ordering Provider Test Date [facility] 08/18/2023 16:16:29 Final Observation Date Value Abnormality Reference (Units ) Status ABO 08/18/2023 16:16:29 O Final RH 08/18/2023 16:16:29 Positive Final RED BLOOD CELL ANTIBODY SCREEN 08/18/2023 16:16:29 Negative Final SPECIMEN EXPIRATION DATE 08/18/2023 16:16:29 08/21/2023 23:59 Final Performing Location LABORATORY [facility] [place] [facility] - [address] [place] [address]
[2023-09-22 13:32] LABS: Basophils # (auto) 0.03 K/uL (0.00-0.20); Basophils % (auto) 0.3 %; Eosinophils # (auto) 0.35 K/uL (0.00-0.50); Eosinophils % (auto) 3.2 %; Hematocrit (blood only) 32.5 % (37.0-47.0); Hemoglobin 9.8 g/dl (12.0-16.0); Immature Granulocytes # (auto) 0.06 K/uL (0.01-0.20); Immature Granulocytes % (auto) 0.6 %; Lymphocytes # (auto) 2.04 K/uL (1.20-3.40); Lymphocytes % (auto) 18.9 %; Mean Corpuscular Hemoglobin 28.2 pg (25.0-34.0); Mean Corpuscular Hgb Conc 30.2 g/dL (32.0-36.0); Mean Corpuscular Volume 93.7 fL (80.0-100.0); Mean Platelet Volume 9.4 fL (9.4-12.4); Monocytes # (auto) 1.01 K/uL (0.11-0.59); Monocytes % (auto) 9.4 %; Neutrophils # (auto) 7.28 K/uL (1.40-6.50); Neutrophils % (auto) 67.6 %; Platelet Count 487 K/uL (130-400); RDW Standard Deviation 56.5 fL (36.4-46.3); Red Blood Count 3.47 M/uL (4.20-5.40); White Blood Count 10.77 K/ul (4.8-10.8)
[2023-09-22 13:45] LABS: Albumin Level 2.9 gm/dl (3.4-5.0); BUN Creatinine Ratio 22.1 (10-20); Bilirubin Direct 0.1 mg/dl (0-0.2); Bilirubin,Total 0.5 mg/dl (0.2-1.0); Calcium 8.7 mg/dl (8.6-10.3); Creatinine Clr Calc Pharmacy 50.6 ml/min; Est GFR (African American) 63.5 ml/min; Est GFR (Non-African American) 54.8 ml/min; Magnesium 1.4 mg/dl (1.7-2.4); Potassium 3.9 mmol/L (3.5-5.1); Total Protein 7.1 gm/dl (6.0-8.3)
[2023-09-22 13:50] LABS: Troponin I High Sensitivity 3.4 pg/ml (0-14)
--- NOTE | 2023-09-22 13:59 | XRay Report ---
SINGLE VIEW CHEST CLINICAL HISTORY: Fluid overload FINDINGS: An AP, portable, upright chest radiograph is correlated with chest CT dated 01/05/2012. The re is evidence of previous cardiac valve surgery. The cardiomediastinal silhouette is unremarkable no ting atherosclerotic calcification of the thoracic aorta. The pulmonary vasculature is noncongested. Chronic interstitial thickening is similar to previous. There is bibasilar scarring/atelectasis. No a irspace consolidation or pleural effusion is identified. No pneumothorax is seen. The skeletal struct ures are osteopenic. The bony thorax is grossly intact. Mild degenerative change is noted in the shou lders and spine. IMPRESSION: No active disease in the chest. ACT 112: Negative or not required by law. Electronically signed by: Prosper Taylor M.D. 09/22/2023 1:58 PM
--- NOTE | 2023-09-22 14:27 | Ultrasound Report ---
ULTRASOUND BILATERAL LOWER EXTREMITY VENOUS CLINICAL HISTORY: Lower extremity edema COMPARISON STUDY: Left lower extremity venous ultrasound dated 10/23/2005 TECHNIQUE: Real-time, grayscale, and color Doppler sonography of the deep veins of the right and left lower extremity was performed from the inguinal crease to the calf. Compression and augmentation wer e utilized. FINDINGS: Right lower extremity: There is no sonographic evidence of deep venous thrombosis in the right lower extremity. The common femoral, superficial femoral, and popliteal veins are patent and normally compr essible. The greater saphenous vein and the profunda femoris vein at the junction with the common fem oral vein are clear. The visualized calf veins are patent. Soft tissue edema is present in the right calf. Left lower extremity: There is occlusive deep superficial venous thrombus in the greater saphenous ve in at the junction of the common femoral vein. This protrudes into the common femoral vein as deep ve nous thrombosis. The superficial femoral and popliteal veins are patent and normally compressible. Th e profunda femoris vein at the junction with the common femoral vein is clear. The visualized calf ve ins are patent. Soft tissue edema is present in the left calf. IMPRESSION: 1. There is occlusive superficial venous thrombus within the left greater saphenous vein at the junct ion with the common femoral vein. This extends into the common femoral vein as deep venous thrombosis . 2. No additional foci of deep venous thrombosis are seen in either leg. ACT 112: Negative or not required by law. Electronically signed by: Prosper Taylor M.D. 09/22/2023 2:25 PM
[2023-09-22] MEDS: MAGNESIUM SULFATE / D5W 1 GM/100 ML BAG IV STA (14:47)
--- NOTE | 2023-09-22 14:59 | History & Physical Report ---
Date of Service September 22, 2023 Assessment & Plan (1) Fluid overload: (2) Bilateral lower extremity edema: (3) Pulmonary emboli: (4) Left leg DVT: Plan: Patient is 68-year-old female with PMH HTN, dyslipidemia, DM II, CKD III, aortic stenosis s/p TAVR, RBBB, right breast CA s/p partial mastectomy and radiation in 2020 continued on letrozole, obesity presented to ER with c/o BLE edema x 1.5 weeks. S/P bilateral hip replacement on 08/17/23, on aspirin VTE prophylaxis. +productive cough x 1.5 weeks, Denies CP, SOB, hemoptysis. H/O PE in 2011. In ER afebrile, No tachycardia or hypoxia. No leukocytosis, BNP: 235 CXR:No active disease in the chest. CTA chest:Bilateral segmental and subsegmental pulmonary emboli. There is no airspace consolidation or pleural effusion. [employer] respiratory panel negative Started on oral 20mg Lasix yesterday and had 40mg oral Lasix at home this am. In ER patient with over 500ml urine output since started monitoring Will start IV Lasix 40mg with dose starting now tonight Start potassium supplement Monitor I's & O's, daily weight. Will start low sodium diet 07/18/2023 echo: EF: 60-64%, grade 1 diastolic dysfunction, s/p TAVR with prosthetic valve with normal prosthesis systolic gradients Get updated Echo to further assess valve as well as to check for strain Hold aspirin prophylaxis Start IV heparin CBC, CMP, magnesium labs in am (5) Hypomagnesemia: Plan: Magnesium: 1.4 In ER given magnesium sulfate 1GM IV Monitor and replace (6) History of hip replacement: Plan: S/P bilateral hip replacement on 08/17/[address] Chito Cochran at [facility] [place] Known poor incision healing and with reported erythema and intermittent purulent drainage and candidal infection On Doxycycline for 6 weeks with end date of 10/04/23. On Diflucan with end date of 10/05/23 Left incision with dressing that was recommended to remain in place until ortho follow up on 10/03/23 Concern for bacterial as well as candidal infection Will obtain wound culture Continue doxycycline and add Augmentin for now, as will try to avoid additional volume from IV antibiotics as pt volume overloaded currently. Follow wound culture Continue Diflucan Ortho consult for recommendations on incision site Wound consult (7) Aortic stenosis: (8) S/P TAVR (transcatheter aortic valve replacement): Plan: S/P TAVR 06/05/[address] Lyons at [facility] [place] 07/18/2023 echo: EF: 60-64%, grade 1 diastolic dysfunction, s/p TAVR with prosthetic valve with normal prosthesis systolic gradients Echo pending (9) Diabetes mellitus, type II: Plan: A1c: 5.5 on 08/08/23 Hold metformin Novolog sliding scale correction at this time (10) CKD (chronic kidney disease), stage III: Plan: Cr: 1.0. Baseline 0.9-1.1 Monitor renal functions (11) Hypertension: Plan: Stable Continue nadolol (12) Dyslipidemia: Plan: Chronic Continue atorvastatin (13) Anemia: Plan: Hgb: 9.8. Recent baseline Hgb 9.3 on 09/17/2023. Patient had acute anemia postop bilateral hip replacements in August with lowest Hgb recorded 6.1 on 08/18/2023. Had received 4 units PRBCs Monitor H&H (14) Breast cancer, right: Plan: S/p partial mastectomy, radiation in 2020 On chronic letrozole DVT Prophylaxis Current DVT and PE present upon admission. On IV Heparin Admit med tele Full Code as per discussion with pt Follows with Dr Dougherty for routine care Pt was seen and care coordinated with Dr Lopes. See addendum I spent a total of 80 minutes reviewing notes, outpatient records, labs, medication, coordinating, documenting and providing care for this patient excluding time spent in the performance of separately billed services. History of Present Illness Chief Complaint: BLE edema Primary Care Provider: Deon Dougherty MD Patient is 68-year-old female with PMH HTN, dyslipidemia, DM II, CKD III, aortic stenosis s/p TAVR, RBBB, right breast CA s/p partial mastectomy and radiation in 2020 continued on letrozole, obesity presented to ER with c/o BLE edema x 1.5 weeks. History obtained from patient and inpatient and outpatient chart review. History hospitalization at [facility] [place] 08/17/2023-08/26/2023 for elective bilateral hip replacement during which she had noted postop anemia, required ICU admission due to hypotension requiring pressors, received 4 units PRBC transfusion per discharge summary. Patient subsequently became volume overloaded and required diuresis. Was discharged on 6-week course of doxycycline per ortho[facility]23. Patient states u sing wheelchair and walking with walker. Seen by ortho on 09/12/23 per notes had noted redness incision site with some slight purulent drainage. New dressing applied to left hip incision and was instructed to keep in place until ortho follow up on 10/03/23. There was concern for yeast infection of incision and redness to skin folds and was ordered Diflucan x 3 weeks. Patient feels right incision area appears less red now but still notices some purulent drainage but does not feel it is worse. Wider wheelchair and hospital bed was ordered for patient. Patient states 1.5 weeks ago onset of BLE edema. She states woke up with BLE edema and didn't think it was a gradual accumulation. She does note approximate 18 pound weight gain during her August admission. Outpatient office notes weight 78kg on 08/08/23 and 87.5kg on 08/26/23. She also reports onset of clear productive cough 1.5 weeks. Denies chest pain, SOB or orthopnea. States BLE edema making it hard to ambulate and uncomfortable to sit in her wheelchair. Denies history of volume overload. States yesterday took Lasix 20mg and today took Lasix 40mg orally and has been urinating a lot today since taking. States has some red areas to buttocks that have been treating with Calmoseptine per home health recommendations. History PE in 2011 and treated with warfarin x 2 years. Has been on aspirin 81mg BID x 30 days for VTE prophylaxis per ortho. Denies hemoptysis, fever/chills, diaphoresis, N/V/D/C, RILEY, dizziness, syncope, vision changes, neck pain, palpitations, sore throat, rhinorrhea, abdominal pain, paresthesias, dysuria, hematuria. Allergies Allergy/AdvReac Type Severity Reaction Status Date / Time dichloralphenazone AdvReac RASH Verified 09/22/23 16:07 isometheptene AdvReac RASH Verified 09/22/23 16:07 Home Medications Medication Instructions Recorded Confirmed Type acetaminophen 500 mg tablet 1,000 mg PO Q8 09/22/23 09/22/23 History (Tylenol Extra Strength) amitriptyline 75 mg tablet 75 mg PO HS 09/22/23 09/22/23 History amoxicillin 500 mg capsule 2,000 mg PO UD 09/22/23 09/22/23 History aspirin 81 mg tablet,delayed 81 mg PO AMHS 09/22/23 09/22/23 History release atorvastatin 80 mg tablet 80 mg PO HS 09/22/23 09/22/23 History cyanocobalamin (vitamin B-12) 1,000 mcg PO QAM 09/22/23 09/22/23 History 1,000 mcg tablet cyclobenzaprine 10 mg tablet 10 mg PO TID PRN Muscle Spasm 09/22/23 09/22/23 History doxycycline hyclate 100 mg tablet 100 mg PO Q12 09/22/23 09/22/23 History famotidine 20 mg tablet 20 mg PO QAM 09/22/23 09/22/23 History fluconazole 100 mg tablet 100 mg PO QAM 09/22/23 09/22/23 History furosemide 20 mg tablet 40 mg PO QAM 09/22/23 09/22/23 History letrozole 2.5 mg tablet 2.5 mg PO QAM 09/22/23 09/22/23 History metformin 500 mg tablet,extended 500 mg PO BID 09/22/23 09/22/23 History release 24 hr miconazole nitrate 2 % topical 1 applic topical DAILY 09/22/23 09/22/23 History cream nadolol 20 mg tablet 20 mg PO HS 09/22/23 09/22/23 History oxycodone 5 mg tablet 5 mg PO DAILY PRN Severe Pain 09/22/23 09/22/23 History (Scale Score 7-10) riboflavin (vitamin B2) 100 mg 200 mg PO Q12 09/22/23 09/22/23 History tablet sennosides 8.6 mg tablet (senna) 8.6 mg PO DAILY 09/22/23 09/22/23 History vitamin A-vitamin C-vit E-min 1 tab PO BID 09/22/23 09/22/23 History tablet Past Med/Surg History Problem List Pulmonary emboli Fluid overload Anemia History of hip replacement 08/17/23: Bilateral hip replacement. Dr Chito Cochran. [facility] [place] S/P TAVR (transcatheter aortic valve replacement) s/p TAVR 06/05/23. Dr Lyons. [facility] [place] Left leg DVT Bilateral lower extremity edema Dyslipidemia Breast cancer, right CKD (chronic kidney disease), stage III Diabetes mellitus, type II Hypertension Aortic stenosis Hypomagnesemia (Acute) Acute deep vein thrombosis (DVT) of femoral vein of left lower extremity (Acute) Localized swelling of both lower legs (Acute) Malignant neoplasm of upper-outer quadrant of right breast in female, estrogen receptor positive (Chronic 06/30/20) History of surgery Reexcision for positive margin of right breast;SLN biopsy also done 07/21/20 History of surgery Excisional right breast biopsy on 06/30/20 Medical History TMJ (dislocation of temporomandibular joint) Arthritis Pulmonary emboli Microscopic colitis Migraines Surgical History History of cataract surgery Bilateral Hx of colonoscopy Family History Mother , 93yo Breast cancer Father , 69yo Lung cancer Dyslipidemia Hypertension Sister No problems noted. Sister Stroke Son No problems noted. Daughter No problems noted. Social History Smoking Status: Never smoker Second Hand Exposure: No; Hx Alcohol Use: No Hx Substance Use: No Preferred Language: Polish Communication Ability: Effective Visual Impairment: No Limitations Hearing Ability: Hard of Hearing Blacking Wheel Tender Required: No Beliefs That Will Affect Care: None marital status: Current Living Situation: Spouse current occupational status: retired current occupation: From [employer] Feels Safe at Home: Yes Diet: regular caffeine: No during the past year weight has: remained stable Assistive Devices: Cane Review of Systems Review of Systems: All systems reviewed & are unremarkable except as noted in HPI & below Physical Exam Physical Exam: General: no distress, obese female Head: normocephalic, atraumatic Eyes: conjunctiva non-injected, anicteric ENT: normal inspection external ears, nose, mucous membranes moist Neck: supple, trachea midline Lungs: no respiratory distress, 98% on RA, +rales noted bases, no wheezing/rhonchi CV: RRR, no murmur, 3+ edema extending to thighs bilaterally Abd: protuberant, normal BS, soft, non-tender Ext: no cyanosis, LLE: +edema, lower leg with erythema and slight warmth, non- tender, RLE: +edema without significant erythema, non-tender Neuro: A&O x 3, no focal deficits noted, normal affect Skin: warm, dry, +under bilateral breasts with slight erythema, +abdominal and groin skin folds with erythema that extends to right hip incision with olinda in place with superior aspect of incision with slight purulent drainage. + b uttock erythema. Left hip incision with dressing in place Results & Data Results & Data Vital Signs (Past 12 Hours) Vital Signs Temp Pulse Resp BP Pulse Ox O2 Del Method 09/22/23 12:58 85 09/22/23 12:40 36.8 C 83 20 127/69 98 Room Air Laboratory Results Short CBC 09/22/23 Range/Units 12:57 WBC 10.77 (4.8-10.8) K/ul Hgb 9.8 L (12.0-16.0) g/dl Hct 32.5 L (37.0-47.0) % Plt Count 487 H (130-400) K/uL BMP 09/22/23 13:16 Sodium 138 Potassium 3.9 Chloride 105 Carbon Dioxide 26 BUN 23 Creatinine 1.04 Glucose 74 Calcium 8.7 Liver Function 09/22/23 Range/Units 13:16 Total Bilirubin 0.5 (0.2-1.0) mg/dl Direct Bilirubin 0.1 (0-0.2) mg/dl AST 21 (13-39) U/L ALT 14 (7-52) U/L Alkaline Phosphatase 186 H (34-104) U/L Albumin 2.9 L (3.4-5.0) gm/dl Urine 09/22/23 Range/Units 14:42 Urine Color Yellow Urine Appearance Clear (Clear) Urine pH 5.5 (4.5-7.5) Ur Specific [place] 1.007 (1.000-1.030) Urine Protein Negative (Negative) Urine Glucose (UA) Negative (Negative) Diagnostic Findings Venous Doppler Study 09/22/23 13:06 ULTRASOUND BILATERAL LOWER EXTREMITY VENOUS CLINICAL HISTORY: Lower extremity edema COMPARISON STUDY: Left lower extremity venous ultrasound dated 10/23/2005 TECHNIQUE: Real-time, grayscale, and color Doppler sonography of the deep veins of the right and left lower extremity was performed from the inguinal crease to the calf. Compression and augmentation were utilized. FINDINGS: Right lower extremity: There is no sonographic evidence of deep venous thrombosis in the right lower extremity. The common femoral, superficial femoral, and popliteal veins are patent and normally compressible. The greater saphenous vein and the profunda femoris vein at the junction with the common femoral vein are clear. The visualized calf veins are patent. Soft tissue edema is present in the right calf. Left lower extremity: There is occlusive deep superficial venous thrombus in the greater saphenous vein at the junction of the common femoral vein. This protrudes into the common femoral vein as deep venous thrombosis. The superficial femoral and popliteal veins are patent and normally compressible. The profunda femoris vein at the junction with the common femoral vein is clear. The visualized calf veins are patent. Soft tissue edema is present in the left calf. IMPRESSION: 1. There is occlusive superficial venous thrombus within the left greater saphenous vein at the junction with the common femoral vein. This extends into the common femoral vein as deep venous thrombosis. 2. No additional foci of deep venous thrombosis are seen in either leg. ACT 112: Negative or not required by law. Electronically signed by: Prosper Taylor M.D. 09/22/2023 2:25 PM Chest X-Ray 09/22/23 13:07 SINGLE VIEW CHEST CLINICAL HISTORY: Fluid overload FINDINGS: An AP, portable, upright chest radiograph is correlated with chest CT dated 01/05/2012. There is evidence of previous cardiac valve surgery. The cardiomediastinal silhouette is unremarkable noting atherosclerotic calcification of the thoracic aorta. The pulmonary vasculature is noncongested. Chronic interstitial thickening is similar to previous. There is bibasilar scarring/atelectasis. No airspace consolidation or pleural effusion is ident ified. No pneumothorax is seen. The skeletal structures are osteopenic. The bony thorax is grossly intact. Mild degenerative change is noted in the shoulders and spine. IMPRESSION: No active disease in the chest. ACT 112: Negative or not required by law. Electronically signed by: Prosper Taylor M.D. 09/22/2023 1:58 PM Chest CTA 09/22/23 15:43 CT ANGIOGRAM OF THE CHEST CLINICAL HISTORY: Deep venous thrombosis. Lower extremity edema. Cough. COMPARISON STUDY: Chest x-ray dated 09/22/2023. Chest CT dated 01/05/2012. TECHNIQUE: Following the IV administration of 116 cc of Optiray 320, CT angiogram of the chest was performed from the upper abdomen to the thoracic inlet utilizing the pulmonary embolus protocol. Images are reviewed in the axial, sagittal, and coronal planes. 3-D MIPS images are created and assessed. IV contrast was administered without complication. A dose lowering technique was utilized adhering to the principles of ALARA. CT DOSE: 720.95 mGy.cm FINDINGS: Thyroid: Imaged portions of the thyroid gland are normal in size and attenuation. Thoracic aorta: There is atherosclerotic calcification of the thoracic aorta, wh ich is normal in caliber and demonstrates 4-vessel variant arch anatomy. No dissection is seen. Pulmonary vasculature: The pulmonary trunk is normal in caliber. There are segmental and subsegmental pulmonary emboli within branches of both the right and left lower lobe pulmonary arteries. Subsegmental pulmonary embolus is also seen within branches of the right middle lobe and left upper lobe pulmonary arteries. Heart: There is evidence of previous aortic valve surgery. The heart is normal in size and without pericardial effusion. There are coronary artery calcifications. Lungs and pleural spaces: Evaluation of the lung parenchyma is degraded by motion artifact. No airspace consolidation or pleural effusion is identified. Atelectasis is noted at the lung bases. The trachea and central airways are clear. Mediastinum: There is no mediastinal lymphadenopathy. Faith: Clear. Axillae: There is no axillary lymphadenopathy. Upper abdomen: Partially visualized upper abdominal viscera is within normal limits. Skeletal structures: The skeletal structures are osteopenic. Degenerative change is noted in the shoulders and spine. No lytic or blastic bony lesions are seen. IMPRESSION: 1. Bilateral segmental and subsegmental pulmonary emboli as above. 2. There is no airspace consolidation or pleural effusion. 3. Additional findings as above. ACT 112: Negative or not required by law. Electronically signed by: Prosper Taylor M.D. 09/22/2023 4:34 PM ECG Additional Comments: sinus rhythm, rate 85, RBBB per my interpretation Supervising Physician Co-Signing Physician Notes Attending Addendum: Case reviewed with the advanced practitioner. I have personally performed a history and physical examination on the patient. I have reviewed the advanced practitioner's documentation on the date of service referenced in note, and I agree with, and take responsibility for the plan of care. please refer to her notes for full details patient seen and examined, records reviewed by myself as well on exam, patient Seen resting in bed, comfortable, sitting up, on room air States breathing is somewhat improving No active chest pain, dizziness, nausea, palpitations no other symptoms VS noted and reviewed oriented x 3 , not in distress, speaks in sentences with no effort nor accessory muscle use normal rate, regular rhythm, no murmurs Mild respiratory obese, no wheezing non distended, soft, nontender Right hip surgical incision site: Wound well opposed, olinda in place Mild yellow, thick discharge noted with surrounding erythema on the incision site Mild warmth Left hip surgical incision site: Dressing in place Grade 2 bilateral lower extremity edema, mild warmth and erythema no neuro deficits all labs, imaging noted and reviewed ASSESSMENT AND PLAN Volume overload, History of TAVR Recent bilateral hip replacement surgery Suspect underlying congestive heart failure Echocardiogram ordered Continue Lasix IV 40 mg daily Acute bilateral pulmonary embolism Left lower extremity DVT History of PE in 2012 Hemodynamically stable Heparin drip ordered Infected right hip surgical site Has been on a course of doxycycline p.o. as an outpatient but incision site still looks infected Wound culture Add Augmentin twice daily Consult Ortho service Wound care consult other diagnoses and plan of care as per advanced practitioner's notes Simeon Lopes MD
[2023-09-22 15:16] LABS: Appearance Urine Clear (Clear); Bacteria Urine Automated None Seen (None Seen); Bilirubin Urine Negative (Negative); Blood Urine Negative (Negative); Cast Urine Automated 0-2 /lpf (0-2); Color Urine Yellow; Epithelial Cell Urine Auto 0-2 /hpf (0-2); Glucose Urine UA Negative (Negative); Ketones Urine Negative (Negative); Leukocyte Esterase Urine 2+ (Negative); Nitrite Urine Negative (Negative); Protein Urine Negative (Negative); RBC Urine Automated 0-2 /hpf (0-2); Specific Gravity Urine 1.007 (1.000-1.030); Urobilinogen Urine Negative (Negative); WBC Urine Automated 0-5 /hpf (0-5); pH Urine 5.5 (4.5-7.5)
[2023-09-22] MEDS: OPTIRAY 320 125ml IV ONE (16:12)
--- NOTE | 2023-09-22 16:36 | CT Scan Report ---
CT ANGIOGRAM OF THE CHEST CLINICAL HISTORY: Deep venous thrombosis. Lower extremity edema. Cough. COMPARISON STUDY: Chest x-ray dated 09/22/2023. Chest CT dated 01/05/2012. TECHNIQUE: Following the IV administration of 116 cc of Optiray 320, CT angiogram of the chest was pe rformed from the upper abdomen to the thoracic inlet utilizing the pulmonary embolus protocol. Images are reviewed in the axial, sagittal, and coronal planes. 3-D MIPS images are created and assessed. I V contrast was administered without complication. A dose lowering technique was utilized adhering to the principles of ALARA. CT DOSE: 720.95 mGy.cm FINDINGS: Thyroid: Imaged portions of the thyroid gland are normal in size and attenuation. Thoracic aorta: There is atherosclerotic calcification of the thoracic aorta, which is normal in zandra vicki and demonstrates 4-vessel variant arch anatomy. No dissection is seen. Pulmonary vasculature: The pulmonary trunk is normal in caliber. There are segmental and subsegmental pulmonary emboli within branches of both the right and left lower lobe pulmonary arteries. Subsegmen ray pulmonary embolus is also seen within branches of the right middle lobe and left upper lobe pulmo nary arteries. Heart: There is evidence of previous aortic valve surgery. The heart is normal in size and without pe ricardial effusion. There are coronary artery calcifications. Lungs and pleural spaces: Evaluation of the lung parenchyma is degraded by motion artifact. No airspa ce consolidation or pleural effusion is identified. Atelectasis is noted at the lung bases. The trach ea and central airways are clear. Mediastinum: There is no mediastinal lymphadenopathy. Faith: Clear. Axillae: There is no axillary lymphadenopathy. Upper abdomen: Partially visualized upper abdominal viscera is within normal limits. Skeletal structures: The skeletal structures are osteopenic. Degenerative change is noted in the shou lders and spine. No lytic or blastic bony lesions are seen. IMPRESSION: 1. Bilateral segmental and subsegmental pulmonary emboli as above. 2. There is no airspace consolidation or pleural effusion. 3. Additional findings as above. ACT 112: Negative or not required by law. Electronically signed by: Prosper Taylor M.D. 09/22/2023 4:34 PM
[2023-09-22] MEDS: POTASSIUM CHLORIDE CRTAB 20 MEQ TABCR PO ONE (16:45)
[2023-09-22] MEDS: FUROSEMIDE 40 MG/4 ML VIAL IV SCH (17:07)
[2023-09-22] MEDS: HEPARIN SOD (PORCINE) 1000 UNIT/ML IV ONE (17:16)
[2023-09-22] MEDS: HEPARIN SODIUM/DEXTROSE 25,000 UNITS/500 ML BAG IV SCH (17:17)
[2023-09-22] MEDS: Heparin IV Adult Wt-Based Standard w/ INITIAL Bolus Protocol IV STA (17:22)
[2023-09-22 17:32] LABS: Adenovirus PCR Not Detected (NotDetected); Bordetella parapertussis PCR Not Detected (NotDetected); Bordetella pertussis PCR Not Detected (NotDetected); Chlamydia pneumoniae PCR Not Detected (NotDetected); Coronavirus 229E PCR Not Detected (NotDetected); Coronavirus CoV-2 (COVID19)PCR Not Detected (NotDetected); Coronavirus HKU1 PCR Not Detected (NotDetected); Coronavirus NL63 PCR Not Detected (NotDetected); Coronavirus OC43PCR Not Detected (NotDetected); Human Metapneumovirus PCR Not Detected (NotDetected); Influenza A PCR Not Detected (NotDetected); Influenza B PCR Not Detected (NotDetected); Mycoplasma pneumoniae PCR Not Detected (NotDetected); Parainfluenza Virus 1 PCR Not Detected (NotDetected); Parainfluenza Virus 2 PCR Not Detected (NotDetected); Parainfluenza Virus 3 PCR Not Detected (NotDetected); Parainfluenza Virus 4 PCR Not Detected (NotDetected); Respiratory Syncytial VirusPCR Not Detected (NotDetected); Rhinovirus/Enterovirus PCR Not Detected (NotDetected)
[2023-09-22 17:53] LABS: Partial Thromboplastin Time 28 Seconds (21-31); Prothrombin Time 11.2 Seconds (9.0-12.0)
[2023-09-22] MEDS ORDERED: CARBOHYDRATES FOR HYPOGLYCEMIA PO PRN (18:43)
[2023-09-22] MEDS ORDERED: oxyCODONE HCL IR 5 MG TAB (IMMEDIATE RELEASE) PO PRN (18:43)
[2023-09-22] MEDS ORDERED: GLUCOSE 40% GEL 15 GM TUBE PO PRN (18:43)
[2023-09-22] MEDS ORDERED: DEXTROSE 50% 50 ML SYRINGE IV PRN (18:43)
[2023-09-22] MEDS ORDERED: CYCLOBENZAPRINE HCL 10 MG TAB PO PRN (18:43)
[2023-09-22] MEDS ORDERED: GLUCAGON FOR INJ 1 MG VIAL SQ PRN (18:43)
[2023-09-22] MEDS ORDERED: POLYETHYLENE (MIRALAX) 17 GM PACK PO PRN (18:43)
[2023-09-22] MEDS ORDERED: GLUCOSE 10 TAB/TUBE PO PRN (18:43)
[2023-09-22] MEDS ORDERED: PROMETHAZINE HCL 6.25 MG in SODIUM CHLORIDE 0.9% 50 ML IV PRN (18:43)
--- OUTSIDE RECORDS SUMMARY | 2023-09-22 18:49 | External Medical Summary | Summary of Care ---
Author Name Unknown Organization [facility] Address [address] [place] [address] Phone [phone] Care Team Providers Care Shank Rander Name Role Phone Farhat MEEHAN MD, Deon Cerna Primary Care Provider [phone] Encounter Details Date Type Department Care Team (Late st Contact Info) Description 09/21/2023 Telephone Cardiology, [facility] [address] [facility] [place] [id number] France Tate CRNP [address] [place] [address] Allergies Active Allergy Reactions Criticality Noted Date Comments Dichloralphenazone 08/15/2022 Other Reaction(s): RASH Isometheptene 08/15/2022 Other Reaction(s): RASH Midrin 07/21/1999 Red and ictchy in the face documented as of this encounter (statuses as of 09/22/2023) Medications Medication Sig Dispensed Refills Start Date [...] at bedtime. 90 Tablet 3 07/09/2023 Active oxyCODONE HCl 5 MG Oral Tablet [...] as of this encounter (statuses as of 09/22/2023) Active Problems Problem Noted Date Diagnosed Date Status post bilateral hip replacements Degenerative joint disease (DJD) of hip 08/17/19 24 Migraine variant 06/14/2023 Atherosclerosis of [place] co ronary artery without angina pectoris 06/14/2023 [...] as of this encounter (statuses as of 09/22/2023) Resolved Problems Problem Noted Date Diagnosed Date [...] as of this encounter (statuses as of 09/22/2023) Immunizations Name Administration Dates Next Due COVID-19 mRNA, LNP-s, No Pre serve, 2-Dose Series (Pfizer) 01/25/2021,2020,05/25/2020 COVID-19, MRNA-LNP, 23-24, P F, 30 MCG/0.3 mL, 12 YRS AND ABOVE, IM (PFIZER-Comirnaty) 12/21/2022 Pneumococcal Conjugate Vacci ne, 20-valent (Ulnrmaf83) 10/13/2021 Pneumococcal Polysaccharide PPV23 (Pneumovax) 04/14/2020 RSV [...] Telephone Encounter - Berna Mack MD - 09/22/2023 2:01 PM EDT France-- just letting you know patient was decompensated today in the office and I sent her to [facility]. Thanks * Telephone Encounter - Kanika Patton CMA - 09/21/2023 4:04 PM EDT Attempted to call patient at home, no answer, no identifying voicemail. Left detailed message on Harry's identified VM. Sent patient detailed MyG message. *Rx for Lasix included 5 20mg tablets. Would you like me to pend a full script to [facility]? Or just another 5 tablets? * Telephone Encounter - France Tate CRNP - 09/21/2023 3:01 PM EDT Increase lasix to 40 mg daily. Keep follow up with PCP tomorrow- if patient markedly volume overloaded on exam may need ED evaluation. WILLIAM Newby * Telephone Encounter - Kanika Patton CMA - 09/21/2023 2:42 PM EDT Call from: Shan Mancera, Physical Therapist, [facility] P: [phone] Call from pt's physical therapist. Reports that Elsa has 3+ LE pitting edema, cough, crackling lungs, congestion. Pt started Lasix 20mg/day today at direction of PCP. Reports pt is not having trouble breathing but is congested. No other symptoms reported. Pt weight on 09/15 170lbs. Pt weight today 190lbs. Pt had labs done on 09/16. COVID test ordered but not completed. Pt sees Dr. Carrizales but last appt was with France Tate. Pt is seeing PCP tomorrow. Please advise. documented in this encounter Plan of Treatment Upcoming Encounters Date Type Department Care Team (Late st Contact Info) Description 09/27/2023 8:30 AM EDT Home Visit Kg at [facility] [address] [address] Megan Mata RN [address] [address] 10/03/2023 12:00 PM EDT Office Visit Orthopaedics, [place] [address] [place] [address] Junior Chavez PA-C [address] [place] [address] 11/08/2023 9:00 AM EDT Home Visit Kg at [facility] [address] [address] Tre Penny PA-C [address] [address] 11/14/2023 9:00 AM EDT Office Visit [address] [place] [address] Deon Dougherty III, MD [address] [place] [address] 12/18/2023 8:30 AM EDT Office Visit Cardiology, [facility] [address] [place] [address] Los Carrizales DO [address] [place] [address] 03/20/2024 2:00 PM EST Laboratory Laboratory [facility] [address] [place] [phone] [place] [facility] 200 [facility] [place] [address] 03/27/2024 2:00 PM EST Office Visit Hematology/Oncology [facility] [address] [place] [phone] Lizbeth Madison CRNP [address] [facility] [place] [address] Health Maintenance Due Date Last Done Comments Cologuard 06/16/1999 Fecal Occult Blood Test 06/16/1999 Sigmoidoscopy 06/16/1999 COVID-19 Vaccine ( season) 2023 12/21/2022, 01/25/2021, 2020, Additional history exists Diabetic Eye Exam 07/11/2023 07/10/2022, , 07/10/2022, Additional history exists Influenza Vaccine (FLU shot) (#1) 2023 12/21/2022, 02/28/2022, 03/07/2021, Additional history exists HbA1c 02/08/2024 08/08/2023, 03/0 03/2023, 11/08/2022, Additional history exists GFR 03/19/2024 09/17/2023, 03/2023, 09/03/2023, Additional history exists Mammogram 04/23/2024 04/23/2023, 04/12, 04/19/2022, Additional history exists Albumin/Creatinine Ratio 05/10/2024 024, 04/17/2022, 04/15/2021, Additional history exists Diabetic Foot Exam 05/10/2024 05/11/2023, 0 04/17/2022, 04/15/2021 Depression Screening 06/07/2024 06/08/2023 CKD PHOS USE SMARTSET 89655 08/25/202408/10, 08/25/2023, 08/24/2023, Additional history exists CKD HGB USE SMARTSET 17803 09/16/202409/16, 09/17/2023, 09/10/2023, Additional history exists Colonoscopy 02/03/2025 02/03/2015, 01/11, 12/14/2006 Colorectal Cancer Screening 02/03/2025 DTaP,Tdap,and Td Vaccines (3 - Td or Tdap) 01/17/2027 01/17/2017, 11/16/2006 DXA Scan 08/14/2029 08/14/2022, 07/2022, 08/17/2020 Zoster Vaccines Completed 10/22/2017, 0510/2017, 07/20/2015 Pneumococcal Vaccine: 65+ Years Completed 10/13/2021, [...] this encounter Medical Devices Implanted Type Area Edge Dyer Device Identifier Shelf Expiration Date Model / Serial / Lot Valve Transcath Resilia 23mm - [id number] Implanted:Qty: 1 on 06/05/2023 by Mat Lucia MD at [facility] [employer] [id number] 11/12/2023 [id number] / / Screw Bone 6.5x30mm - [id number] Implanted:Qty: 1 on 08/17/2023 by Chito Cochran MD at OR [facility] Right: Hip ALEYDA : ORTHOPAEDICS 05/22/2028 [id number] / / HFF Screw Low Profile 6.3tdh14qp - [id number] Implanted:Qty: 1 on 08/17/2023 by Chito Cochran MD at OR [facility] Right: Hip ALEYDA : ORTHOPAEDICS 03/31/2028 [id number] / / [id number] Implant Stem Hip Colr High 2 - [id number] Implanted:Qty: 1 on 08/17/2023 by Chito Cochran MD at OR [facility] Right: Hip ALEYDA : ORTHOPAEDICS 03/20/2027 [id number] / / [id number] Hip Hd Ricardo Rdz Md D 36 25 - [id number] Implanted:Qty: 1 on 08/17/2023 by Chito Cochran MD at OR [facility] Right: Hip ALEYDA : ORTHOPAEDICS 03/19/2028 6570-0-436 / / [id number] Hip Shell Trident X3 10 36x50 - [id number] Implanted:Qty: 1 on 08/17/2023 by Chito Cochran MD at OR [facility] Left: Hip ALEYDA : ORTHOPAEDICS 07/10/2028 763-10-36E / / [id number] Implant Hip Acetab Shell 52e - [id number] Implanted:Qty: 1 on 08/17/2023 by Chito Cochran MD at OR [facility] Left: Hip ALEYDA : ORTHOPAEDICS 07/07/2028 709-04-52E / / [id number] 6.5mm Low Profile Hex Screw 6 - [id number] Implanted:Qty: 1 on 08/17/2023 by Chito Cochran MD at OR [facility] Left: Hip ALEYDA : ORTHOPAEDICS 04/24/2028 7316-5788 / / [id number] Screw Low Profile 6.1tgc29po - [id number] Implanted:Qty: 1 on 08/17/2023 by Chito Cochran MD at OR [facility] Left: Hip ALEYDA : ORTHOPAEDICS 04/16/2028 [id number] / / [id number] Implant Stem Hip Colr High 1 - [id number] Implanted:Qty: 1 on 08/17/2023 by Chito Cochran MD at OR [facility] Left: Hip ALEYDA : ORTHOPAEDICS 12/13/2027 9381-3815 / / [id number] Hip Hd Ricardo Rdz Md D 36 25 - [id number] Implanted:Qty: 1 on 08/17/2023 by Chito Cochran MD at OR [facility] Left: Hip ALEYDA : ORTHOPAEDICS 01/30/2028 6570-0-436 / / [id number] Hip Shell Trident X3 10 36x50 - [id number] Implanted:Qty: 1 on 08/17/2023 by Chito Cochran MD at OR [facility] Right: Hip ALEYDA : ORTHOPAEDICS 05/03/2028 763-10-36E / / [id number] Implant Hip Acetab Shell 52e - [id number] Implanted:Qty: 1 on 08/17/2023 by Chito Cochran MD at OR [facility] Right: Hip ALEYDA : ORTHOPAEDICS 06/21/2028 709-04-52E / / [id number] documented as of this encounter Advance Directives [...] Power of Attor ludmila? No Care Teams Shank Rander Relationship Specialty Start Date End Date Deon Dougherty III, MD [address] [facility] [place] [address] PCP - General 10/25/1995 documented as of this encounter
--- OUTSIDE RECORDS SUMMARY | 2023-09-22 18:49 | External Medical Summary | Summary of Care ---
Author Name Unknown Organization [facility] Address [address] [place] [address] Phone [phone] Care Team Providers Care Cone Classifier Tender Name Role Phone Farhat MEEHAN MD, Deon Cerna Primary Care Provider [phone] Reason for Visit * Reason Comments Acute Encounter Details Date Type Department Care Team (Late st Contact Info) Description 09/22/2023 11:20 AM EDT Office Visit Family [facility] [address] [facility] [address] Berna Mack MD [address] [place] [address] Acute heart failure, unspecified heart failure type ([facility]; Atherosclerosis of eagle coronary artery of eagle heart without angina pectoris; S/P TAVR (transcatheter aortic valve replacement); Obesity, morbid (more than 100 lbs over ideal weight or BMI > 40) ([facility]); Hypertensive kidney disease with stage 3a chronic kidney disease ([facility]); HTN, goal below 140/90; S/P bilateral hip replacements Allergies Active Allergy Reactions Criticality Noted Date [...] day for 3 weeks.. 22 Tablet 09/14/2023 4 Active Miconazole Nitrate 2 % External Cream (Monistat Derm) Apply to Right groin(do not place on surgical wound) daily after cleansing with soap and water 28.35 g 3 09/14/2023 Active Diclofenac Sodium 1 % External Gel (Voltaren) Apply topically to affected area 4 times a day. Apply to areas outside both hips/troch bursitis 350 g 6 08/08/2023 4 Discontinued Furosemide 20 MG Oral Tablet (Lasix) Take 1 Tablet by mouth in the morning. For 5 days. 5 Tablet 09/20/2023 4 Discontinued documented as of this encounter (statuses as of 09/22/2023) Active Problems Problem Noted Date Diagnosed Date Status post bilateral hip replacements 4 Degenerative joint disease (DJD) of hip 08/17/19 24 Migraine variant 06/14/2023 Atherosclerosis of eagle co ronary artery without angina pectoris 06/14/2023 [...] mRNA, LNP-s, No Pre serve, 2-Dose Series ([email or web address]) 01/25/2021,2020,05/25/2020 COVID-19, MRNA-LNP, 23-24, P F, 30 MCG/0.3 mL, 12 YRS AND ABOVE, IM (PFIZER-Comirnat) 12/21/2022 Pneumococcal Conjugate Vacci ne, 20-valent (Ixyvatj51) 10/13/2021 Pneumococcal Polysaccharide PPV23 (Pneumovax) 04/14/2020 RSV [...] Sign Reading Time Taken Comments Blood Pressure 112/64 09/22/2023 11:39 AM EDT Pulse 72 09/22/2023 11:39 AM EDT Temperature 37.1 C (98.7 F) 09/22/2023 11:39 AM E DT Respiratory Rate 16 09/22/2023 11:39 AM EDT Oxygen Saturation - - Inhaled Oxygen Concentration - - Weight - [...] Progress Notes * Berna Mack MD - 09/22/2023 1:54 PM EDT Subjective Chief Complaint Patient presents with Acute HPI: Elsa Reyes is a 68 year old female. Patient is accompanied by her . The following issues were addressed today: Patient with CAD, s/p TAVR, DM, HTN, CKD stage IIIa, obesity, recent bilateral hip replacements presents today with concern of worsening bilateral lower extremity edema and new cough. She was discharged from [facility] on 09/07/23 and states since then her edema has progressively gotten worse. She denies any chest pain or shortness of breath. Has tried multiple OTC medications for cough but nothinghas helped. She is no longer able to sit comfortably in her wheelchair due to the degree of swelling. She took 20mg Lasix yesterday and 40mg this morning. She follows with Dr. Carrizales. Review of Systems: See HPI Objective BP 112/64 | Pulse 72 | Temp 37.1 C (98.7 F) (Tympanic) | Resp 16 | LMP 10/20/2003 Wt Readings from Last 3 Encounters: 08/26/23 87.5 kg (192 lb 14.4 oz) 08/08/23 78 kg (172 lb) 07/09/23 81.6 kg (180 lb) BP Readings from Last 3 Encounters: 09/22/23 112/64 09/14/23 104/64 09/10/23 100/58 General: No acute distress Cardiovascular: Regular rate and rhythm Respiratory: Good respiratory effort, bilateral lower lung field crackles Abdomen: Soft, non-distended, non-tender, normoactive bowel sounds Extremities: 3+ pitting edema extending from feet to thighs bilaterally Neurological: Alert and oriented Psychiatric: Appropriate mood and affect Assessment & Plan 1. Acute heart failure, unspecified heart failure type (HCC) Patient is acutely decompensated on exam today. Recommended she proceed to the emergency room for further management and she and were agreeable. will transport via private vehicle. 2. Atherosclerosis of eagle coronary artery of eagle heart without angina pectoris Continue nadolol, statin, ASA 81mg. 3. S/P TAVR (transcatheter aortic valve replacement) Stable. 4. Obesity, morbid (more than 100 lbs over ideal weight or BMI > 40) (HCC) 5. Hypertensive kidney disease with stage 3a chronic kidney disease (HCC) Stable. 6. HTN, goal below 140/90 Well-controlled. Continue current medication(s). 7. S/P bilateral hip replacements Patient unable to participate effectively in physical therapy given degree of BL LE edema. She has followed up with orthopedics and incisions are healing appropriately. Orders have been sent to [facility] for wider wheelchair and new hospital bed. Will readdress after hospitalization. Follow-up after hospital discharge. This note was electronically signed by Berna Mack MD documented in this encounter Nursing Notes * Little Mccain LPN - 09/22/2023 11:36 AM EDT Patient presents in office today with C/O having bilateral hip replacements where she has since developed edema in both legs. Has also now developed a cough started around 09/10. Edema appeared after coming home from [facility] on 09/06 documented in this encounter Plan of Treatment Upcoming Encounters Date Type Department Care Team (Late st Contact Info) Description 09/27/2023 8:30 AM EDT Home Visit Kg at [facility] [address] [address] Megan Mata RN [address] [address] 10/03/2023 12:00 PM EDT Office Visit Orthopaedics, [place] [address] [place] [address] Junior Chavez PA-C [address] [place] [address] 11/08/2023 9:00 AM EDT Home Visit Kg at [facility] [address] [address] Tre Penny PA-C [address] [address] 11/14/2023 9:00 AM EDT Office Visit Family Practice [facility] [address] [place] [address] Deon Dougherty III, MD [address] [place] [address] 12/18/2023 8:30 AM EDT Office Visit Cardiology, [facility] [address] [facility] [place] [address] Los Carrizales, [address] [place] [address] 03/20/2024 2:00 PM EST Laboratory Laboratory [facility] [address] [place] [phone] [place], Lab [facility] [address] [facility] [place] [address] 03/27/2024 2:00 PM EST Office Visit Hematology/Oncology [facility] [address] [place] [phone] Lizbeth Madison CRNP [address] [place] [address] Health Maintenance Due Date Last Done Comments [...] Screening 06/07/2024 06/08/2023 CKD PHOS USE SMARTSET 51915 08/25/202408/10, 08/25/2023, 08/24/2023, Additional history exists CKD HGB USE SMARTSET 25752 09/16/202409/16, 09/17/2023, 09/10/2023, Additional history exists Colonoscopy [...] this encounter Medical Devices Implanted Type Area Employee Benefits Attorney Device Identifier Shelf Expiration Date Model / Serial / Lot Valve Transcath Resilia 23mm - [id number] Implanted:Qty: 1 on 06/05/2023 by Mat Lucia MD at [facility] [place] [employer] [id number] 11/12/2023 [id number] / / Screw Bone 6.5x30mm - [id number] Implanted:Qty: 1 on 08/17/2023 by Chito Cochran MD at OR [place] Right: Hip ALEYDA : ORTHOPAEDICS 05/22/2028 2245-0938 / / HFF Screw Low Profile 6.3bbq66vg - [id number] Implanted:Qty: 1 on 08/17/2023 by Chito Cochran MD at OR [place] Right: Hip ALEYDA : ORTHOPAEDICS 03/31/2028 6537-8146 / / [id number] Implant Stem Hip Colr High 2 - [id number] Implanted:Qty: 1 on 08/17/2023 by Chito Cochran MD at OR [place] Right: Hip ALEYDA : ORTHOPAEDICS 03/20/2027 3884-5096 / / [id number] Hip Hd Ricardo Rdz Md D 36 25 - [id number] Implanted:Qty: 1 on 08/17/2023 by Chito Cochran MD at OR [place] Right: Hip ALEYDA : ORTHOPAEDICS 03/19/2028 6570-0-436 / / [id number] Hip Shell Trident X3 10 36x50 - [id number] Implanted:Qty: 1 on 08/17/2023 by Chito Cochran MD at OR [place] Left: Hip ALEYDA : ORTHOPAEDICS 07/10/2028 763-10-36E / / [id number] Implant Hip Acetab Shell 52e - [id number] Implanted:Qty: 1 on 08/17/2023 by Chito Cochran MD at OR [place] Left: Hip ALEYDA : ORTHOPAEDICS 07/07/2028 709-04-52E / / [id number] 6.5mm Low Profile Hex Screw 6 - [id number] Implanted:Qty: 1 on 08/17/2023 by Chito Cochran MD at OR [place] Left: Hip ALEYDA : ORTHOPAEDICS 04/24/2028 8664-9946 / / [id number] Screw Low Profile 6.7mkl42mt - [id number] Implanted:Qty: 1 on 08/17/2023 by Chito Cochran MD at OR [place] Left: Hip ALEYDA : ORTHOPAEDICS 04/16/2028 1696-8260 / / [id number] Implant Stem Hip Colr High 1 - [id number] Implanted:Qty: 1 on 08/17/2023 by Chito Cochran MD at OR [place] Left: Hip ALEYDA : ORTHOPAEDICS 12/13/2027 3330-0919 / / [id number] Hip Hd Ricardo Rdz Md D 36 25 - [id number] Implanted:Qty: 1 on 08/17/2023 by Chito Cochran MD at OR [place] Left: Hip ALEYDA : ORTHOPAEDICS 01/30/2028 6570-0-436 / / [id number] Hip Shell Trident X3 10 36x50 - [id number] Implanted:Qty: 1 on 08/17/2023 by Chito Cochran MD at OR [place] Right: Hip ALEYDA : ORTHOPAEDICS 05/03/2028 763-10-36E / / [id number] Implant Hip Acetab Shell 52e - [id number] Implanted:Qty: 1 on 08/17/2023 by Chito Cochran MD at OR [place] Right: Hip ALEYDA : ORTHOPAEDICS 06/21/2028 709-04-52E / / [id number] documented as of this encounter Visit Diagnoses Diagnosis Acute heart failure, unspecified heart failure type (HCC)- Primary Atherosclerosis of eagle coronary artery of eagle heart without angina pectoris S/P TAVR (transcatheter aortic valve replacement) Heart valve replaced by other means Obesity, morbid (more than 100 lbs over ideal weight or BMI > 40) (HCC) Morbid obesity Hypertensive kidney disease with stage 3a chronic kidney disease (HCC) HTN, goal below 140/90 Unspecified essential hypertension S/P bilateral hip replacements Hip joint replacement by other means documented in this encounter Advance Directives * [...] Power of Attor ludmila? No Care Teams Cone Classifier Tender Relationship Specialty Start Date End Date Farhat MEEHAN, Deon Cerna MD [address] [facility] [place] [address] PCP - General 10/25/1995 documented as of this encounter"
[2023-09-22] MEDS: INSULIN ASPART PER UNIT CHARGE SC SCH (20:22)
[2023-09-22] MEDS: AMOXICILLIN/CLAVULANATE 875 MG TAB PO ONE (20:38)
[2023-09-22] MEDS: MAGNESIUM SULFATE / D5W 1 GM/100 ML BAG IV ONE (20:38)
[2023-09-22] MEDS: CEROVITE ADV FORMULA TAB PO SCH (20:39)
[2023-09-22] MEDS: nadoloL 40 MG TAB PO SCH (20:39)
[2023-09-22] MEDS: AMITRIPTYLINE HCL 25 MG TAB PO SCH (20:39)
[2023-09-22] MEDS: ATORVASTATIN 40 MG TAB PO SCH (20:39)
[2023-09-22] MEDS: DOXYCYCLINE HYCLATE 100 MG CAP PO SCH (20:40)
[2023-09-22] MEDS: ADVANCED PROBIOTIC 625 MG CAPSULE PO SCH (20:40)
[2023-09-22] MEDS ORDERED: NON-FORMULARY MEDICATION (Riboflavin (Vitamin B2) 100 mg Tablet) PO SCH (21:00)
[2023-09-23 00:10] LABS: ANTI-Xa, UFH(UnfractionatedHep 0.78 IU/ml (0.3-0.7)
[2023-09-23 06:30] LABS: Hematocrit (blood only) 29.2 % (37.0-47.0); Mean Corpuscular Hemoglobin 28.4 pg (25.0-34.0); Mean Corpuscular Hgb Conc 30.8 g/dL (32.0-36.0); Mean Corpuscular Volume 92.1 fL (80.0-100.0); Mean Platelet Volume 9.3 fL (9.4-12.4); Platelet Count 400 K/uL (130-400); RDW Coefficient of Variation 16.7 % (11.5-14.5); RDW Standard Deviation 55.4 fL (36.4-46.3); Red Blood Count 3.17 M/uL (4.20-5.40); White Blood Count 8.09 K/ul (4.8-10.8)
[2023-09-23 06:45] LABS: Albumin Globulin Ratio 0.7 (0.9-2); Albumin Level 2.5 gm/dl (3.4-5.0); BUN Creatinine Ratio 19.6 (10-20); Bilirubin,Total 0.4 mg/dl (0.2-1.0); Calcium 8.2 mg/dl (8.6-10.3); Creatinine Clr Calc Pharmacy 50.1 ml/min; Est GFR (Non-African American) 56.1 ml/min; Globulin 3.7 gm/dl (2.5-4.0); Magnesium 1.8 mg/dl (1.7-2.4); Potassium 3.9 mmol/L (3.5-5.1); Total Protein 6.2 gm/dl (6.0-8.3)
[2023-09-23 06:59] LABS: ANTI-Xa, UFH(UnfractionatedHep 0.68 IU/ml (0.3-0.7)
[2023-09-23] MEDS: CYANOCOBALAMIN (B-12) 500 MCG TABLET PO SCH (07:39)
[2023-09-23] MEDS: FAMOTIDINE 20 MG TAB PO SCH (07:39)
[2023-09-23] MEDS: FLUCONAZOLE 100 MG TAB PO SCH (07:40)
[2023-09-23] MEDS: SENNA 8.6 MG TAB PO SCH (07:40)
[2023-09-23] MEDS: POTASSIUM CHLORIDE CRTAB 20 MEQ TABCR PO SCH (07:41)
[2023-09-23] MEDS: AMOXICILLIN/CLAVULANATE 875 MG TAB PO SCH (07:41)
[2023-09-23] MEDS: LETROZOLE 2.5 MG TAB PO SCH (07:44)
[2023-09-23] MEDS: MICONAZOLE NITRATE 2% CR 30 GM TUBE TOP SCH (07:44)
--- NOTE | 2023-09-23 08:24 | Orthopedic Consultation ---
Date of Service September 23, 2023 Assessment & Plan (1) History of hip replacement: Elsa is only 6 weeks out from bilateral hip replacements. Unfortunately she is dealing with pulmonary embolisms. I do know Dr. Cochran. He is very protective of the postoperative care of his patients and he would not want the olinda removed from either hip at this time. He would also not want the left hip dressing changed. I think we can continue to do dry dressing changes to the right hip. She is on the antibiotics that he prescribed. She is scheduled to follow-up with him on October 02 and she should certainly keep that appointment. I would not recommend any further orthopedic intervention at this time on her hips. She can follow-up with Dr. Cochran as scheduled. History of Present Illness Reason for Consultation: 6 weeks status post bilateral hip replacements. Requesting Physician: . Attending Physician: Khushbu Batista MD Elsa is a pleasant 68-year-old female who underwent bilateral hip replacements by Dr. Cochran at [facility] in [place]. The procedure was on August 17, 2023 and she is about 6 weeks out. Unfortunately she has developed pulmonary embolisms and clotting and swelling of her left leg. She is also been dealing with some wound issues. She is currently on doxycycline and Diflucan. She is having little bit more drainage from her right hip than her left. She is able to ambulate on her hips. She is being treated with heparin. Orthopedics was consulted for her hips. Allergies Allergy/AdvReac Type Severity Reaction Status Date / Time dichloralphenazone AdvReac RASH Verified 09/22/23 16:07 isometheptene AdvReac RASH Verified 09/22/23 16:07 Home Medications Medication Instructions Recorded Confirmed Type acetaminophen 500 mg tablet 1,000 mg PO Q8 09/22/23 09/22/23 History (Tylenol Extra Strength) amitriptyline 75 mg tablet 75 mg PO HS 09/22/23 09/22/23 History amoxicillin 500 mg capsule 2,000 mg PO UD 09/22/23 09/22/23 History aspirin 81 mg tablet,delayed 81 mg PO AMHS 09/22/23 09/22/23 History release atorvastatin 80 mg tablet 80 mg PO HS 09/22/23 09/22/23 History cyanocobalamin (vitamin B-12) 1,000 mcg PO QAM 09/22/23 09/22/23 History 1,000 mcg tablet cyclobenzaprine 10 mg tablet 10 mg PO TID PRN Muscle Spasm 09/22/23 09/22/23 History doxycycline hyclate 100 mg tablet 100 mg PO Q12 09/22/23 09/22/23 History famotidine 20 mg tablet 20 mg PO QAM 09/22/23 09/22/23 History fluconazole 100 mg tablet 100 mg PO QAM 09/22/23 09/22/23 History furosemide 20 mg tablet 40 mg PO QAM 09/22/23 09/22/23 History letrozole 2.5 mg tablet 2.5 mg PO QAM 09/22/23 09/22/23 History metformin 500 mg tablet,extended 500 mg PO BID 09/22/23 09/22/23 History release 24 hr miconazole nitrate 2 % topical 1 applic topical DAILY 09/22/23 09/22/23 History cream nadolol 20 mg tablet 20 mg PO HS 09/22/23 09/22/23 History oxycodone 5 mg tablet 5 mg PO DAILY PRN Severe Pain 09/22/23 09/22/23 History (Scale Score 7-10) riboflavin (vitamin B2) 100 mg 200 mg PO Q12 09/22/23 09/22/23 History tablet sennosides 8.6 mg tablet (senna) 8.6 mg PO DAILY 09/22/23 09/22/23 History vitamin A-vitamin C-vit E-min 1 tab PO BID 09/22/23 09/22/23 History tablet Past Med/Surg History Problem List Pulmonary emboli Fluid overload Anemia History of hip replacement 08/17/23: Bilateral hip replacement. Dr Chito Cochran. [facility] [place] S/P TAVR (transcatheter aortic valve replacement) s/p TAVR 06/05/23. Dr Lyons. [facility] [place] Left leg DVT Bilateral lower extremity edema Dyslipidemia Breast cancer, right CKD (chronic kidney disease), stage III Diabetes mellitus, type II Hypertension Aortic stenosis Hypomagnesemia (Acute) Acute deep vein thrombosis (DVT) of femoral vein of left lower extremity (Acute) Localized swelling of both lower legs (Acute) Malignant neoplasm of upper-outer quadrant of right breast in female, estrogen receptor positive (Chronic 06/30/20) History of surgery Reexcision for positive margin of right breast;SLN biopsy also done 07/21/20 History of surgery Excisional right breast biopsy on 06/30/20 Medical History TMJ (dislocation of temporomandibular joint) Arthritis Microscopic colitis Migraines Surgical History History of cataract surgery Bilateral Hx of colonoscopy Family History Mother , 93yo Breast cancer Father , 69yo Lung cancer Dyslipidemia Hypertension Sister No problems noted. Sister Stroke Son No problems noted. Daughter No problems noted. Social History Smoking Status: Never smoker Second Hand Exposure: No; Do You Dip or Chew Tobacco: No; Hx Alcohol Use: No Hx Substance Use: No Preferred Language: Andorran Communication Ability: Effective Visual Impairment: No Limitations Hearing Ability: Hard of Hearing [employer] Required: No Beliefs That Will Affect Care: None marital status: Current Living Situation: Spouse and Family Current Living Situation Comment: and daughter current occupational status: retired current occupation: From [employer] Other Information That Helps Us Care for You: No Feels Safe at Home: Yes Safety Concerns: Feels Safe At This Time Diet: regular caffeine: No during the past year weight has: remained stable Assistive Devices: Walker and Wheelchair Review of Systems All systems reviewed & are unremarkable except as noted in HPI & below. Physical Exam On physical examination of her right hip, there is a little bit of seeping from the wound but not much. There is little erythema around the olinda. She is 6 weeks out and the olinda are still in. Her leg length are equal. She is activ e motion of her ankle. Examination of her left hip does show some increased welling of her left leg. There is a dressing over the left hip without any drainage.. Constitutional WD/WN, vitals as above Eyes PERRL, conjunctivae normal, anicteric sclerae ENMT external ear and nose normal, oropharynx normal Neck trachea midline, no thyromegaly Respiratory normal respiratory effort Cardiovascular RRR, no murmur, no edema Gastrointestinal (Abdomen) normal bowel sounds, soft, nontender, no hepatosplenomegaly Psychiatric A+Ox3, euthymic affect Results & Data Results & Data Laboratory Results . Diagnostic Findings . PG Care Time/CCT Total # of Minutes Spent Total Time Spent with Patient: Total time spent is greater than 50% in coordination of care (as documented) at patient's floor/unit and/or counseling patient: Coding Level of Care Code 75587 IN/OBS CONSULT LVL 4,60M Diagnoses History of hip replacement Z96.649
--- NOTE | 2023-09-23 12:43 | Electrocardiogram Report ---
Test Reason : Blood Pressure : / mmHG Vent. Rate : 085 BPM Atrial Rate : 085 BPM P-R Int : 156 ms QRS Dur : 110 ms QT Int : 386 ms P-R-T Axes : 060 014 002 degrees QTc Int : 459 ms Normal sinus rhythm Incomplete right bundle branch block Nonspecific T wave abnormality Abnormal ECG When compared with ECG of 05-JAN-2012 16:37, Aberrant conduction is no longer Present Minimal criteria for Anterior infarct are no longer Present Confirmed by Alin Rivera ([id number]) on 09/23/2023 12:42:54 PM Referred By: REFERRED SELF Confirmed By:Alin Rivera
--- NOTE | 2023-09-23 15:14 | Hospitalist Progress Note ---
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 S/P bilateral hip replacement on 08/17/23, on aspirin BID VTE prophylaxis. +productive cough x 1.5 weeks, Denies CP, SOB, hemoptysis. H/O PE in 2011. She is being managed for the following: Fluid overload: Bilateral lower extremity edema: Pulmonary emboli: Left leg DVT: Patient coming in with BLE edema, cough ISO recent bilateral hip replacement. 07/18/2023 echo: EF: 60-64%, grade 1 diastolic dysfunction, s/p TAVR with prosthetic valve with normal prosthesis systolic gradients At presentationafebrile, No tachycardia or hypoxia. No leukocytosis, BNP: 235, [employer] respiratory panel negative. Admitting imagings: CXR:No active disease in the chest. CTA chest:Bilateral segmental and subsegmental pulmonary emboli. There is no airspace consolidation or pleural effusion. BLE Doppler: LLE DVT noted Trop neg. EKG w/ NSR. ECHO w/ EF of 60-65%. LV size, systolic function, ventricular wall thickness and wall motion is normal. Takes 40 Mg Lasix daily in the home, continue with Lasix 40 Mg IV daily here. I's and O's, fluid restriction at 1.8 L/day Monitor replete electrolytes. Hold aspirin DVT prophylaxis dose. Patient on heparin drip. Patient would like to be on Coumadin at discharge. Coumadin 2mg daily for now, monitor PT/INR, dose adjust as appropriate. History of hip replacement: S/P bilateral [place] 08/17/[address] [place] [facility] poor incision healing and with reported erythema and intermittent purulent drainage and candidal infection On Doxycycline for 6 weeks with end date of 10/04/23. On Diflucan with end date of 10/05/23 Left incision with dressing that was recommended to remain in place until ortho follow up on 10/03/2309/21 Wound Cx: GNB, f/u 09/21 blood Cx. C/w doxy and Augmentin and fluconazole. Ortho evaled, no acute Ix, f/u OP ortho as scheduled on October 02. ID consult, await recs. WOCN consult. Other chronic medical conditions: Continue with/resume home meds as and when able Aortic stenosis, status post TAVR 06/05/[address] [place] [facility] as able. T2DM: A1c 5.5 on July 2023. Hold metformin. Sliding scale insulin while in hospital. CKD stage III: Baseline creatinine around 1.0, monitor renal functions as needed. Hypertension: Continue nadolol Dyslipidemia: Continue atorvastatin Anemia: Chronic, hemoglobin around 9, monitor. Breast cancer, right: Status post partial mastectomy, radiation in 2020. On chronic letrozole. Continue DVT prophylaxis: On heparin drip, plan to transition to Coumadin Med telemetry Full code PT/OT, CM to assist with DC planning. Admission and Anticipated Discharge Date Admission Date: September 22, 2023 Subjective Patient was seen and examined at bedside. Patient was lying in bed, on room air, NAD, resting comfortably. Patient reports eating okay and moving bowels okay, reports bilateral hip pain under control, reports dry cough. Physical Exam Physical Exam: General: no distress, obese female Head: normocephalic, atraumatic Eyes: conjunctiva non-injected, anicteric ENT: normal inspection external ears, nose, mucous membranes moist Neck: supple, trachea midline Lungs: no respiratory distress, 98% on RA, +rales noted bases, no wheezing/rhonchi CV: RRR, no murmur, 2+ edema extending to thighs bilaterally Abd: protuberant, normal BS, soft, non-tender Ext: no cyanosis, LLE: +edema, lower leg with erythema and slight warmth, non- tender, RLE: +edema without significant erythema, non-tender Neuro: A&O x 3, no focal deficits noted, normal affect Skin: warm, dry, +under bilateral breasts with slight erythema, +abdominal and groin skin folds with erythema that extends to right hip incision with olinda in place with superior aspect of incision with slight purulent drainage. + buttock erythema. Left hip incision with dressing in place Results & Data Results & Data Vital Signs (Past 12 Hours) Vital Signs Temp Pulse Pulse Resp BP Pulse Ox O2 Del Method 09/23/23 14:16 84 09/23/23 11:54 36.8 C 80 16 115/69 94 Room Air 09/23/23 07:46 36.7 C 74 16 117/72 96 Room Air 09/23/23 07:28 70
[2023-09-23] MEDS: WARFARIN SOD 2 MG TAB PO SCH (17:02)
[2023-09-24 06:42] LABS: Hematocrit (blood only) 28.7 % (37.0-47.0); Mean Corpuscular Hemoglobin 28.8 pg (25.0-34.0); Mean Corpuscular Hgb Conc 31.4 g/dL (32.0-36.0); Mean Corpuscular Volume 91.7 fL (80.0-100.0); Mean Platelet Volume 9.5 fL (9.4-12.4); Platelet Count 429 K/uL (130-400); RDW Coefficient of Variation 16.8 % (11.5-14.5); RDW Standard Deviation 55.5 fL (36.4-46.3); Red Blood Count 3.13 M/uL (4.20-5.40); White Blood Count 7.82 K/ul (4.8-10.8)
[2023-09-24 06:56] LABS: Calcium 8.7 mg/dl (8.6-10.3); Creatinine Clr Calc Pharmacy 40.2 ml/min; Est GFR (African American) 50.3 ml/min; Est GFR (Non-African American) 43.4 ml/min; Magnesium 1.9 mg/dl (1.7-2.4); Phosphorus 3.8 mg/dl (2.5-4.9); Potassium 4.2 mmol/L (3.5-5.1)
[2023-09-24 07:10] LABS: ANTI-Xa, UFH(UnfractionatedHep 0.59 IU/ml (0.3-0.7); INR 1.1 (0.9-1.1); Prothrombin Time 11.6 Seconds (9.0-12.0)
--- NOTE | 2023-09-24 08:37 | Hospitalist Progress Note ---
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 S/P bilateral hip replacement on 08/17/23, on aspirin BID VTE prophylaxis. +productive cough x 1.5 weeks, Denies CP, SOB, hemoptysis. H/O PE in 2011. She is being managed for the following: Fluid overload: Bilateral lower extremity edema: Pulmonary emboli: Left leg DVT: Patient coming in with BLE edema, cough ISO recent bilateral hip replacement. 07/18/2023 echo: EF: 60-64%, grade 1 diastolic dysfunction, s/p TAVR with prosthetic valve with normal prosthesis systolic gradients At presentationafebrile, No tachycardia or hypoxia. No leukocytosis, BNP: 235, [employer] respiratory panel negative. Admitting imagings: CXR:No active disease in the chest. CTA chest:Bilateral segmental and subsegmental pulmonary emboli. There is no airspace consolidation or pleural effusion. BLE Doppler: LLE DVT noted Trop neg. EKG w/ NSR. ECHO w/ EF of 60-65%. LV size, systolic function, ventricular wall thickness and wall motion is normal. Takes 40 Mg Lasix daily in the home, continue with Lasix 40 Mg IV daily here. I's and O's, fluid restriction at 1.8 L/day Hold aspirin DVT prophylaxis dose. Patient on heparin drip. Patient would like to be on Coumadin at discharge. Coumadin 2mg daily for now, monitor PT/INR, dose adjust as appropriate. (+) LE swelling; improving. History of hip replacement: S/P bilateral hip replacement on 08/17/[address] Ch[place] [facility] [place] poor incision healing and with reported erythema and intermittent purulent drainage and candidal infection On Doxycycline for 6 weeks with end date of 10/04/23. On Diflucan with end date of 10/05/23 Left incision with dressing that was recommended to remain in place until ortho follow up on 10/03/2309/21 Wound Cx: GNB, f/u 7/13 blood Cx; NGTD 09/23: Discussed with ID; recommended an I/D, sent message to ortho for reeval. On 09/22 prior to culture no intervention recc by Ortho ID recommended DC Augmentin and Doxy; start Ceftriaxone. Continue fluconazole for a fungal skin infection under pannus. WOCN placed for photos to be uploaded into file. Discussed via [place] Text with Dr. Cochran the operating surgeon. Recommendations as follows: Picture shared via tiger text: Looks like skin around incision is macerated. leave wound open and dry and keep appt for 10/03/23. Leave olinda in place. No surgery for now. Other chronic medical conditions: Continue with/resume home meds as and when able Aortic stenosis, status post TAVR 06/05/[address] Lucia [place] [facility] [place] Echo as able. T2DM: A1c 5.5 on July 2023. Hold metformin. Sliding scale insulin while in hospital. CKD stage III: Baseline creatinine around 1.0, monitor renal functions as needed. Hypertension: Continue nadolol Dyslipidemia: Continue atorvastatin Anemia: Chronic, hemoglobin around 9, monitor. Breast cancer, right: Status post partial mastectomy, radiation in 2020. On chronic letrozole. Continue DVT prophylaxis: On heparin drip, plan to transition to Coumadin Med telemetry Full code PT/OT, CM to assist with DC planning. I spent a total of 59 minutes coordinating, documenting, and providing care for this patient excluding time spent in the performance of separately billed services. All of the aforementioned completed while collaborating with the assigned attending physician for a full treatment plan. Please see their addendu m for further details. Admission and Anticipated Discharge Date Admission Date: September 22, 2023 Supervising Physician Co-Signing Physician Notes Pt seen and examined. BLE edema/PE/LE DVT - c/w hep drip, c/w coumadin, track pt/inr. recent bl hip replacement. Rt hip ssi. ID evaled. on rocephin. Wound cx w/ proteus. ortho evaled, no acute sx indication. f/u ortho 10/02. spent approx 20 min in addition to CONGRESSIONAL ASSISTANT's time. I have seen and examined the patient and have discussed the case with the provider above. I agree with the assessment and plan as stated. Subjective Pt sitting in her bedside chair in no apparent distress She denies fever, chills, SOB, chest pain R hip dressing just replaced by nursing; drainage improved from the weekend continued erythema top portion of incision. Review of Systems Review of Systems: Neuro: (-) Falls, trauma, slurred speech HEENT: (-) RILEY, dizziness, dysphagia, visual or auditory changes CV: (-) CP, palpitations, swelling Resp: (-) SOB GI: (-) appetite changes, N/V/D, bowel changes : (-) urinary changes Skin: (-) rashes (+) redness on R hip vertical incision Psych: (-) anxiety, depression Physical Exam Physical Exam: Neuro: AAOx4, PERRLA, no aphagia, memory changes, CNII-XII grossly intact HEENT: head normocephalic, moist mucus membranes CV: S1/S2, (-) M/G/R, (-) edema, cap refill < 3 seconds Resp: Lungs CTA in all davis. On RA GI: Abdomen S/NT/ND, Ax4 bowel sounds, (-) CVA tenderness Musculoskeletal: 5/5 B/L UE strength, 5/5 B/L LE strength. No gait disturbance Skin: (-) rashes , (+) redness on R hip vertical incision. Drainage improved. Psych: euthymic mood Results & Data Results & Data Vital Signs (Past 12 Hours) Vital Signs Temp Pulse Pulse Resp BP Pulse Ox O2 Del Method 09/24/23 07:44 36.6 C 72 16 120/74 93 Room Air 09/24/23 03:05 36.5 C 76 18 110/72 95 Room Air 09/23/23 22:27 36.8 C 82 18 118/72 93 Room Air 09/23/23 21:59 81 09/23/23 21:00 Room Air Laboratory Results Short CBC 09/24/23 Range/Units 05:39 WBC 7.82 (4.8-10.8) K/ul Hgb 9.0 L (12.0-16.0) g/dl Hct 28.7 L (37.0-47.0) % Plt Count 429 H (130-400) K/uL BMP 09/24/23 05:39 Sodium 137 Potassium 4.2 Chloride 100 Carbon Dioxide 32 BUN 24 H Creatinine 1.26 H Glucose 88 Calcium 8.7
--- NOTE | 2023-09-24 10:07 | Infectious Disease Consult ---
Date of Service September 24, 2023 Telehealth Information I performed this visit using a real-time telehealth connection between my location and the patients location ([facility]). After connecting through interactive tele-video, patient was identified by name and date of and/or wristband check.Patient (or authorized healthcare territory service representative) was informed that this was a telemedicine visit and it was being conducted confidentially over secure lines. My office door was closed and no one else was present in the room with me.Patient (or authorized healthcare territory service representative) provided consent to proceed with the visit, expressed an understanding of privacy and security of the telemedicine visit, and gave permission to have a hospital territory service representative in the room in order to assist with the visit and to conduct portions of the visit, as needed. I informed the patient (or authorized healthcare territory service representative) that I reviewed their record and presented the opportunity for them to ask any questions regarding the visit today. The patient agreed to participate. 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 to right hip with wound cultures that have grown proteus mirabilis currently on doxycycline ,augmentin and fluconazole .Would recommend if she is having purulent drainage from her hips that the wound be washed out as she may require a 2 stage revision .Discontinue diflucan,doxycyclien and augmentin and would recommend starting ceftriaxone(if no wash out ids planned ,if she is going to the OR would monitor off antibiotics for better yield ) as she will likely need 6 weeks of IV antibiotics .Thank you for allowing us to participate in the care of this patient ID will continue to follow History of Present Illness History of Present Illness 68 y/o F PMHx HTN, HLD, DM II, CKD III, aortic stenosis s/p TAVR, RBBB, right breast CA s/p partial mastectomy and radiation in 2020 continued on letrozole, obesity presented to ER with c/o BLE edema x 1.5 weeks. s/p bilateral hip replacement on 08/17/23 .She was found to have DVT of LLE and was on doxycycline and diflucan as per orthopedics. Patient reportedly with poor incision healing and reported erythema and intermittent purulent drainage for which she was placed on doxycyline and diflucan until 10/04/23.Her left incision with dressing that was recommended to remain in place until ortho follow up on 10/03/23 .Her right hip wound cultures are grwoing Proteus mirabilis and she is on doxycycline ,augmentin and fluconazole Allergies Allergy/AdvReac Type Severity Reaction Status Date / Time dichloralphenazone AdvReac RASH Verified 09/22/23 16:07 isometheptene AdvReac RASH Verified 09/22/23 16:07 Home Medications Medication Instructions Recorded Confirmed Type acetaminophen 500 mg tablet 1,000 mg PO Q8 09/22/23 09/22/23 History (Tylenol Extra Strength) amitriptyline 75 mg tablet 75 mg PO HS 09/22/23 09/22/23 History amoxicillin 500 mg capsule 2,000 mg PO UD 09/22/23 09/22/23 History aspirin 81 mg tablet,delayed 81 mg PO AMHS 09/22/23 09/22/23 History release atorvastatin 80 mg tablet 80 mg PO HS 09/22/23 09/22/23 History cyanocobalamin (vitamin B-12) 1,000 mcg PO QAM 09/22/23 09/22/23 History 1,000 mcg tablet cyclobenzaprine 10 mg tablet 10 mg PO TID PRN Muscle Spasm 09/22/23 09/22/23 History doxycycline hyclate 100 mg tablet 100 mg PO Q12 09/22/23 09/22/23 History famotidine 20 mg tablet 20 mg PO QAM 09/22/23 09/22/23 History fluconazole 100 mg tablet 100 mg PO QAM 09/22/23 09/22/23 History furosemide 20 mg tablet 40 mg PO QAM 09/22/23 09/22/23 History letrozole 2.5 mg tablet 2.5 mg PO QAM 09/22/23 09/22/23 History metformin 500 mg tablet,extended 500 mg PO BID 09/22/23 09/22/23 History release 24 hr miconazole nitrate 2 % topical 1 applic topical DAILY 09/22/23 09/22/23 History cream nadolol 20 mg tablet 20 mg PO HS 09/22/23 09/22/23 History oxycodone 5 mg tablet 5 mg PO DAILY PRN Severe Pain 09/22/23 09/22/23 History (Scale Score 7-10) riboflavin (vitamin B2) 100 mg 200 mg PO Q12 09/22/23 09/22/23 History tablet sennosides 8.6 mg tablet (senna) 8.6 mg PO DAILY 09/22/23 09/22/23 History vitamin A-vitamin C-vit E-min 1 tab PO BID 09/22/23 09/22/23 History tablet Patient History Medical History TMJ (dislocation of temporomandibular joint) Arthritis Microscopic colitis Migraines Surgical History History of cataract surgery Bilateral Hx of colonoscopy Family History Mother , 93yo Breast cancer Father , 69yo Lung cancer Dyslipidemia Hypertension Sister No problems noted. Sister Stroke Son No problems noted. Daughter No problems noted. 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 Beliefs That Will Affect Care: None marital status: Current Living Situation: Spouse and Family Current Living Situation Comment: and daughter current occupational status: retired current occupation: From [employer] Other Information That Helps Us Care for You: No Feels Safe at Home: Yes Safety Concerns: Feels Safe At This Time Diet: regular caffeine: No during the past year weight has: remained stable Assistive Devices: Walker and Wheelchair Review of Systems Patient awake alert orientated ROM limited to both hips Physical Exam Patient awake alert complains of hip pain Results & Data Vital Signs (Past 12 Hours) Vital Signs Temp Pulse Resp BP Pulse Ox O2 Del Method 09/24/23 07:44 36.6 C 72 16 120/74 93 Room Air 09/24/23 03:05 36.5 C 76 18 110/72 95 Room Air 09/23/23 22:27 36.8 C 82 18 118/72 93 Room Air Laboratory Results No leukocytosis P mirabili RX M.I.C. --- --------- Amox/Clav S <=8/4 Ampicillin S <=8 Amp/Sul S <=8/4 Cefazolin I 4 Cefepime S <=2 Ceftriaxone S <=1 Ciprofloxacin S <=0.25 Ertapenem S <=0.5 Gentamicin S <=4 Levofloxacin S <=0.5 Meropenem S <=1 Tobramycin S <=4 Trimeth/Sulfa S <=2/38 Pip/Tazo S <=16 S = SENSITIVE I = INTERMEDIATE R = RESISTANT Diagnostic Findings IMPRESSION: 1. There is occlusive superficial venous thrombus within the left greater saphenous vein at the junction with the common femoral vein. This extends into the common femoral vein as deep venous thrombosis. 2. No additional foci of deep venous thrombosis are seen in either leg.
--- NOTE | 2023-09-24 12:26 | Electrocardiogram Report ---
Test Reason : Blood Pressure : / mmHG Vent. Rate : 074 BPM Atrial Rate : 074 BPM P-R Int : 162 ms QRS Dur : 120 ms QT Int : 426 ms P-R-T Axes : 063 017 -04 degrees QTc Int : 472 ms Normal sinus rhythm Right bundle branch block Abnormal ECG When compared with ECG of 22-SEP-2023 12:52, No significant change was found Confirmed by Alin Rivera ([id number]) on 09/24/2023 12:26:18 PM Referred By: REFERRED SELF Confirmed By:Alin Rievra
[2023-09-24] MEDS: cefTRIAXone SODIUM 2,000 MG/50 ML BAG IV SCH (15:04)
[2023-09-25 07:24] LABS: Basophils # (auto) 0.03 K/uL (0.00-0.20); Basophils % (auto) 0.4 %; Eosinophils # (auto) 0.35 K/uL (0.00-0.50); Hematocrit (blood only) 29.9 % (37.0-47.0); Hemoglobin 9.2 g/dl (12.0-16.0); Immature Granulocytes # (auto) 0.02 K/uL (0.01-0.20); Immature Granulocytes % (auto) 0.3 %; Lymphocytes # (auto) 2.11 K/uL (1.20-3.40); Lymphocytes % (auto) 29.8 %; Mean Corpuscular Hemoglobin 28.4 pg (25.0-34.0); Mean Corpuscular Hgb Conc 30.8 g/dL (32.0-36.0); Mean Corpuscular Volume 92.3 fL (80.0-100.0); Mean Platelet Volume 9.5 fL (9.4-12.4); Monocytes # (auto) 0.81 K/uL (0.11-0.59); Monocytes % (auto) 11.5 %; Neutrophils # (auto) 3.75 K/uL (1.40-6.50); Platelet Count 437 K/uL (130-400); RDW Coefficient of Variation 16.9 % (11.5-14.5); RDW Standard Deviation 57.1 fL (36.4-46.3); Red Blood Count 3.24 M/uL (4.20-5.40); White Blood Count 7.07 K/ul (4.8-10.8)
[2023-09-25 07:41] LABS: BUN Creatinine Ratio 20.4 (10-20); Creatinine Clr Calc Pharmacy 36.6 ml/min; Est GFR (African American) 45.5 ml/min; Est GFR (Non-African American) 39.3 ml/min; Potassium 4.2 mmol/L (3.5-5.1)
[2023-09-25 07:49] LABS: ANTI-Xa, UFH(UnfractionatedHep 0.61 IU/ml (0.3-0.7); INR 1.1 (0.9-1.1); Prothrombin Time 11.5 Seconds (9.0-12.0)
--- NOTE | 2023-09-25 09:27 | Hospitalist Progress Note ---
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 S/P bilateral hip replacement on 08/17/23, on aspirin BID VTE prophylaxis. +productive cough x 1.5 weeks, Denies CP, SOB, hemoptysis. H/O PE in 2011. She is being managed for the following: Fluid overload: Bilateral lower extremity edema: Pulmonary emboli: Left leg DVT: Patient coming in with BLE edema, cough ISO recent bilateral hip replacement. 07/18/2023 echo: EF: 60-64%, grade 1 diastolic dysfunction, s/p TAVR with prosthetic valve with normal prosthesis systolic gradients At presentationafebrile, No tachycardia or hypoxia. No leukocytosis, BNP: 235, Bio[employer] respiratory panel negative. Admitting imagings: CXR:No active disease in the chest. CTA chest:Bilateral segmental and subsegmental pulmonary emboli. There is no airspace consolidation or pleural effusion. BLE Doppler: LLE DVT noted Trop neg. EKG w/ NSR. ECHO w/ EF of 60-65%. LV size, systolic function, ventricular wall thickness and wall motion is normal. Takes 40 Mg Lasix daily in the home, continue with Lasix 40 Mg IV daily here. I's and O's, fluid restriction at 1.8 L/day Hold aspirin DVT prophylaxis dose. Patient on heparin drip. Patient would like to be on Coumadin at discharge. Coumadin 2mg daily for now, monitor PT/INR, dose adjust as appropriate. 09/24 INR 1.1; Continue 2 mg Coumadin daily with additional 2 mg dose today. Recheck INR in AM on 09/25 (+) LE swelling; improving, taking Lasix History of hip replacement: S/P bilateral hip replacement on 08/17/[address] Chito Cochran at [facility] Known poor incision healing and with reported erythema and intermittent purulent drainage and candidal infection On Doxycycline for 6 weeks with end date of 10/04/23. On Diflucan with end date of 10/05/23 Left incision with dressing that was recommended to remain in place until ortho follow up on 10/03/23 -09/21 Wound Cx: GNB, f/u 09/21 blood Cx; NGTD -09/23: Discussed with ID; recommended an I/D, sent message to ortho for reeval. On 09/22 prior to culture no intervention recc by Ortho ID recommended DC Augmentin and Doxy; started Ceftriaxone on 09/24/23. Continue fluconazole for a fungal skin infection under pannus. WOCN placed photos on the file; Discussed via [place] Text with Dr. Cochran the operating surgeon Recommendations as follows: Picture shared via tiger text: Looks like skin around incision is macerated. leave wound open and dry and keep appt for 10/03/23. Leave andrew in place. No surgery for now. -09/25/23: PICC consent obtained; order placed for PICC placement; reassess for placement of PICC 09/25 s/p fluid administration Confirmed with ID patient will continue IV abx upon DC; Ceftriaxone 2G IV Q 24 x6 weeks Keep follow up appt 10/03/[address] Cochran [facility] operating surgeon SOFÍA on CKD: Acute creatinine 1.3--> 1.26; baseline creatinine around 1.0 Additional need for PICC line placement for mcfp 6 week abx. Will administer gentle IV fluids @ 60mL/hour x2 bags Small bolus to be planned for AM on 09/25 Reattempt PICC placement Hold diuretic due to SOFÍA as well; hold any other nephrotoxic agents Monitor BMP in AM. Other chronic medical conditions: Continue with/resume home meds as and when abl e Aortic stenosis, status post TAVR 06/05/[address] Lucia at [facility]. Echo as able. T2DM: A1c 5.5 on July 2023. Hold metformin. Sliding scale insulin while in hospital. Hypertension: Continue nadolol Dyslipidemia: Continue atorvastatin Anemia: Chronic, hemoglobin around 9, monitor. Breast cancer, right: Status post partial mastectomy, radiation in 2020. On chronic letrozole. Continue DVT prophylaxis: On heparin drip, currently bridging to Coumadin Med telemetry Full code PT/OT, CM to assist with DC planning. I spent a total of 59 minutes coordinating, documenting, and providing care for this patient excluding time spent in the performance of separately billed services. All of the aforementioned completed while collaborating with the assigned attending physician for a full treatment plan. Please see their addendum for further details. Admission and Anticipated Discharge Date Admission Date: September 22, 2023 Supervising Physician Co-Signing Physician Notes Pt seen and examined. BLE edema/PE/LE DVT - c/w hep drip, c/w coumadin, additional 2 mg today, track pt/inr. recent bl hip replacement. Rt hip ssi. ID evaled. on rocephin. Wound cx w/ proteus. ortho evaled, no acute sx indication. f/u ortho 10/02. Need PICC line, iv team unable, hold diuresis today, give gentle ivf w/ plan of 250 ml bolus nss in AM prior to iv team eval in an attempt for successful picc line placement. 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 I have seen and examined the patient and have discussed the case with the provider above. I agree with the assessment and plan as stated. Subjective Pt sitting in her bedside chair in no apparent distress; just finished breakfast She denies fever, chills, SOB, chest pain. Reports increased swelling in her feet; taking Lasix R hip open to air; continued erythema top portion of incision. Andrew remain intact. Stage 1 pressure ulcer sacrum Discussed plan of care including bridging of coumadin and DC Heparin gtt once INR therapeutic. Discussed risks and benefits of PICC line placement for long term care pharmacist abx; consent obtained and signed. Per PICC team, unable to place PICC/Midline due to small vein; will attempt gentle fluid rehydration and reassess 09/25. CM working on rehab placement Review of Systems Review of Systems: Neuro: (-) Falls, trauma, slurred speech HEENT: (-) RILEY, dizziness, dysphagia, visual or auditory changes CV: (-) CP, palpitations, swelling Resp: (-) SOB GI: (-) appetite changes, N/V/D, bowel changes : (-) urinary changes Skin: (-) rashes (+) redness on R hip vertical incision Psych: (-) anxiety, depression Physical Exam Physical Exam: Neuro: AAOx4, PERRLA, no aphagia, memory changes, CNII-XII grossly intact HEENT: head normocephalic, moist mucus membranes CV: S1/S2, (-) M/G/R, (-) edema, cap refill < 3 seconds Resp: Lungs CTA in all davis. On RA GI: Abdomen S/NT/ND, Ax4 bowel sounds, (-) CVA tenderness Musculoskeletal: 5/5 B/L UE strength, 5/5 B/L LE strength. Uses a walker Skin: (-) rashes , (+) redness on R hip vertical incision. Drainage improved. incision VERONIQUE. R medial circular red esteban lower extremity. Psych: euthymic mood Results & Data Results & Data Vital Signs (Past 12 Hours) Vital Signs Temp Pulse Pulse Resp BP Pulse Ox O2 Del Method 09/25/23 07:42 36.5 C 74 20 117/76 92 Room Air 09/25/23 02:40 36.3 C L 74 18 116/72 92 Room Air 09/24/23 22:32 36.8 C 75 18 112/68 94 Room Air 09/24/23 21:57 81 Laboratory Results Short CBC 09/25/23 Range/Units 06:43 WBC 7.07 (4.8-10.8) K/ul Hgb 9.2 L (12.0-16.0) g/dl Hct 29.9 L (37.0-47.0) % Plt Count 437 H (130-400) K/uL BMP 09/25/23 06:43 Sodium 140 Potassium 4.2 Chloride 103 Carbon Dioxide 32 BUN 28 H Creatinine 1.37 H Glucose 103 H Calcium 9.0
[2023-09-25] MEDS: WARFARIN SOD 2 MG TAB PO STA (10:03)
[2023-09-25] MEDS: MENTHOL-ZINC OXIDE 360 APPLN/120 GM TUBE EXT SCH (13:31)
[2023-09-25] MEDS: SODIUM CHLORIDE 0.9% 1,000 ML IV SCH (13:59)
[2023-09-26 06:05] LABS: Basophils # (auto) 0.04 K/uL (0.00-0.20); Basophils % (auto) 0.5 %; Eosinophils # (auto) 0.42 K/uL (0.00-0.50); Eosinophils % (auto) 5.5 %; Hematocrit (blood only) 29.4 % (37.0-47.0); Immature Granulocytes # (auto) 0.03 K/uL (0.01-0.20); Immature Granulocytes % (auto) 0.4 %; Lymphocytes # (auto) 2.25 K/uL (1.20-3.40); Lymphocytes % (auto) 29.3 %; Mean Corpuscular Hgb Conc 30.6 g/dL (32.0-36.0); Mean Corpuscular Volume 91.6 fL (80.0-100.0); Mean Platelet Volume 9.5 fL (9.4-12.4); Monocytes # (auto) 0.86 K/uL (0.11-0.59); Monocytes % (auto) 11.2 %; Neutrophils # (auto) 4.08 K/uL (1.40-6.50); Neutrophils % (auto) 53.1 %; Platelet Count 443 K/uL (130-400); RDW Coefficient of Variation 16.9 % (11.5-14.5); RDW Standard Deviation 56.3 fL (36.4-46.3); Red Blood Count 3.21 M/uL (4.20-5.40); White Blood Count 7.68 K/ul (4.8-10.8)
[2023-09-26 06:16] LABS: BUN Creatinine Ratio 20.5 (10-20); Calcium 8.8 mg/dl (8.6-10.3); Creatinine Clr Calc Pharmacy 32.1 ml/min; Est GFR (African American) 38.9 ml/min; Est GFR (Non-African American) 33.6 ml/min
[2023-09-26 06:22] LABS: ANTI-Xa, UFH(UnfractionatedHep 0.55 IU/ml (0.3-0.7); INR 1.1 (0.9-1.1); Prothrombin Time 11.9 Seconds (9.0-12.0)
[2023-09-26] MEDS: SODIUM CHLORIDE 0.9% 250 ML IV ONE (08:34)
[2023-09-26] MEDS: MICONAZOLE NITRATE POWDER 85 GM EXT PRN (08:38)
[2023-09-26 12:29] LABS: BUN Creatinine Ratio 21.3 (10-20); Calcium 9.2 mg/dl (8.6-10.3); Creatinine Clr Calc Pharmacy 36.8 ml/min; Est GFR (African American) 45.9 ml/min; Est GFR (Non-African American) 39.6 ml/min; Potassium 4.5 mmol/L (3.5-5.1)
--- NOTE | 2023-09-26 12:35 | Hospitalist Progress Note ---
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 S/P bilateral hip replacement on 08/17/23, on aspirin BID VTE prophylaxis. +productive cough x 1.5 weeks, Denies CP, SOB, hemoptysis. H/O PE in 2011. She is being managed for the following: Fluid overload: Bilateral lower extremity edema: Pulmonary emboli: Left leg DVT: Patient coming in with BLE edema, cough ISO recent bilateral hip replacement. 07/18/2023 echo: EF: 60-64%, grade 1 diastolic dysfunction, s/p TAVR with prosthetic valve with normal prosthesis systolic gradients At presentationafebrile, No tachycardia or hypoxia. No leukocytosis, BNP: 235, BioFire respiratory panel negative. Admitting imagings: CXR:No active disease in the chest. CTA chest:Bilateral segmental and subsegmental pulmonary emboli. There is no airspace consolidation or pleural effusion. BLE Doppler: LLE DVT noted Trop neg. EKG w/ NSR. ECHO w/ EF of 60-65%. LV size, systolic function, ventricular wall thickness and wall motion is normal. Takes 40 Mg Lasix daily in the home, continue with Lasix 40 Mg IV daily here. I's and O's, fluid restriction at 1.8 L/day Hold aspirin DVT prophylaxis dose. Patient on heparin drip. Patient would like to be on Coumadin at discharge. 09/24 INR 1.1; Continue 2 mg Coumadin daily with additional 2 mg dose today. Recheck INR in AM on 09/25 (+) LE swelling; improving, taking Lasix 09/25: INR remains 1.1; will administer Coumadin 4 mg today at 1600 recheck INR in AM on 09/26 (+) LE swelling about the same; Lasix on hold due to SOFÍA History of hip replacement: S/P bilateral hip replacement on 08/17/[address] Chito Cochran at [facility] Known poor incision healing and with reported erythema and intermittent purulent drainage and candidal infection On Doxycycline for 6 weeks with end date of 10/04/23. On Diflucan with end date of 10/05/23 Left incision with dressing that was recommended to remain in place until ortho follow up on 10/03/2309/21 Wound Cx: GNB, f/u 09/21 blood Cx; NGTD 09/23: Discussed with ID; recommended an I/D, sent message to ortho for reeval. On 09/22 prior to culture no intervention recc by Ortho ID recommended DC Augmentin and Doxy; started Ceftriaxone on 09/24/23. Continue fluconazole for a fungal skin infection under pannus. WOCN placed photos on the file; Discussed via [place] Text with Dr. Cochran the operating surgeon Recommendations as follows: Picture shared via tiger text: Looks like skin around incision is macerated. leave wound open and dry and keep appt for 10/03/23. Leave olinda in place. No surgery for now. 09/25/23: PICC consent obtained; order placed for PICC placement; reassess for placement of PICC 09/25 s/p fluid administration Confirmed with ID patient will continue IV abx upon DC; Ceftriaxone 2G IV Q 24 x6 weeks Keep follow up appt 10/03/[address] Cochran [facility] operating surgeon 09/25: Wound Cx 09/21: GNB, f/u 09/21 blood Cx; NGTD Continue on Ceftriaxone for now; will need to continue IV abx x6 weeks If unable to obtain PICC, consult vascular or general surgery for port placement if necessary Keep follow up appt 10/03/[address] Cochran [facility] operating surgeon SOFÍA on CKD: Acute creatinine 1.3--> 1.26--> 1.56 today; baseline creatinine around 1.0 Additional need for PICC line placement for custodial 6 week abx. She received 2 bags of gentle fluids over last day. Small bolus 250 administered this AM on 09/25 Reattempt PICC placement Hold diuretic due to SOFÍA as well; hold any other nephrotoxic agents Renal US ordered Recheck UA and nursing to obtain bladder scan Monitor BMP in AM; if no improvement involve Nephro Other chronic medical conditions: Continue with/resume home meds as and when able Aortic stenosis, status post TAVR 06/05/[address] Lucia at [facility]. Echo as able. T2DM: A1c 5.5 on July 2023. Hold metformin. Sliding scale insulin while in hospital. Hypertension: Continue nadolol Dyslipidemia: Continue atorvastatin Anemia: Chronic, hemoglobin around 9, monitor. Breast cancer, right: Status post partial mastectomy, radiation in 2020. On chronic letrozole. Continue DVT prophylaxis: On heparin drip, currently bridging to Coumadin; remains subtherapeutic Med telemetry Full code PT/OT, CM to assist with DC planning. I spent a total of 59 minutes coordinating, documenting, and providing care for this patient excluding time spent in the performance of separately billed services. All of the aforementioned completed while collaborating with the assigned attending physician for a full treatment plan. Please see their addendum for further details. Admission and Anticipated Discharge Date Admission Date: September 22, 2023 Supervising Physician Co-Signing Physician Notes Pt seen and examined. BLE edema/PE/LE DVT - c/w hep drip, c/w coumadin, change coumadin to 4 mg daily from today, track pt/inr. recent bl hip replacement. Rt hip ssi. ID evaled. on rocephin. Wound cx w/ pr oteus. ortho evaled, no acute sx indication. f/u ortho 10/02. Needs PICC line, iv team unable, holding diuresis give gentle ivf w/ plan of 250 ml bolus nss prior to iv team eval in an attempt for successful picc line placement. Also SOFÍA was noted, which is now improving in PM labs. 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 I have seen and examined the patient and have discussed the case with the provider above. I agree with the assessment and plan as stated. Subjective Pt sitting in her bedside chair in no apparent distress She denies fever, chills, SOB, chest pain. Reports increased swelling in her feet; Lasix currently on hold R hip open to air; continued erythema top portion of incision. [place] remain intact. See below for A/P Review of Systems Review of Systems: Neuro: (-) Falls, trauma, slurred speech HEENT: (-) RILEY, dizziness, dysphagia, visual or auditory changes CV: (-) CP, palpitations, swelling Resp: (-) SOB GI: (-) appetite changes, N/V/D, bowel changes : (-) urinary changes Skin: (-) rashes (+) redness on R hip vertical incision Psych: (-) anxiety, depression Physical Exam Physical Exam: Neuro: AAOx4, PERRLA, no aphagia, memory changes, CNII-XII grossly intact HEENT: head normocephalic, moist mucus membranes CV: S1/S2, (-) M/G/R, (-) edema, cap refill < 3 seconds Resp: Lungs CTA in all davis. On RA GI: Abdomen S/NT/ND, Ax4 bowel sounds, (-) CVA tenderness Musculoskeletal: 5/5 B/L UE strength, 5/5 B/L LE strength. Uses a walker Skin: (-) rashes , (+) redness on R hip vertical incision. Drainage improved. incision VERONIQUE. R medial circular red esteban lower extremity. Psych: euthymic mood Results & Data Results & Data Vital Signs (Past 12 Hours) Vital Signs Temp Pulse Pulse Resp BP Pulse Ox O2 Del Method 09/26/23 09:00 Room Air 09/26/23 08:00 80 09/26/23 07:47 36.6 C 74 20 119/77 93 Room Air 09/26/23 02:48 36.7 C 73 18 110/70 93 Room Air
--- NOTE | 2023-09-26 16:33 | Ultrasound Report ---
US renal/blad retro comp CLINICAL HISTORY: SOFÍA TECHNIQUE: Multiple sonographic real-time images of the kidneys and bladder were obtained. COMPARISON: Comparison is made to CT abdomen pelvis 10/10/2008 FINDINGS: The right kidney measures 9.4 cm in length, and the left kidney measures 9.9 cm in length. The right kidney is normal in size, contour, cortical thickness, and echogenicity. No hydronephrosis is identified. No renal lesion is identified. The left kidney is normal in size, contour, cortical thickness and echogenicity. No hydronephrosis i s identified. No renal lesion is identified. The bladder is partially distended. The right jet seen. IMPRESSION: Unremarkable examination and in particular no evidence of hydronephrosis. ACT 112: Negative or not required by law. Electronically signed by: Davis David M.D. 09/26/2023 4:32 PM
[2023-09-26] MEDS: WARFARIN SOD 4 MG TAB PO ONE (17:16)
[2023-09-27 06:28] LABS: Hematocrit (blood only) 28.5 % (37.0-47.0); Hemoglobin 8.8 g/dl (12.0-16.0); Mean Corpuscular Hemoglobin 28.6 pg (25.0-34.0); Mean Corpuscular Hgb Conc 30.9 g/dL (32.0-36.0); Mean Corpuscular Volume 92.5 fL (80.0-100.0); Mean Platelet Volume 9.5 fL (9.4-12.4); Platelet Count 416 K/uL (130-400); RDW Standard Deviation 56.3 fL (36.4-46.3); Red Blood Count 3.08 M/uL (4.20-5.40); White Blood Count 7.87 K/ul (4.8-10.8)
[2023-09-27 06:39] LABS: ANTI-Xa, UFH(UnfractionatedHep 0.64 IU/ml (0.3-0.7)
[2023-09-27 06:42] LABS: BUN Creatinine Ratio 22.6 (10-20); Calcium 8.9 mg/dl (8.6-10.3); Creatinine Clr Calc Pharmacy 39.9 ml/min; Est GFR (African American) 51.3 ml/min; Est GFR (Non-African American) 44.3 ml/min; Potassium 4.3 mmol/L (3.5-5.1)
[2023-09-27 06:43] LABS: INR 1.2 (0.9-1.1); Prothrombin Time 12.9 Seconds (9.0-12.0)
--- NOTE | 2023-09-27 14:49 | Nephrology Consultation ---
Date of Consultation September 27, 2023 Assessment & Plan (1) Acute kidney injury superimposed on CKD: medically complex pt with improving stage 1 nonoliguric SOFÍA likely multifactorial from IV contrast for CT, relative dehydration w/ addition of diuretics. baseline creatinine 1 though has had some renal function lability and other SOFÍA in March, April, May this year. She had a TAVR in 05/2023 and BL hip replacement in 08/2023 w/ presumptive R periprosthetic infection. not septic currently -daily bmp -no further IVF needed -continue nsaid avoidance -monitor progress of R hip periprosthetic infection -continue K supplements w/ careful monitoring History of Present Illness Reason for Consultation: SOFÍA on CKD Requesting Physician: Dr Anderson Attending Physician: Kang Anderson MD History of Present Illness 68 y/o F whom I'm asked to see for SOFÍA on CKD was admitted with fluid overload and BL pulmonary embolus 09/21 after p/w 10 dyas of productive cough and BLE edema. PMH HTN, dyslipidemia, DM II, CKD III, aortic stenosis s/p TAVR May 12/2024, RBBB, right breast CA s/p partial mastectomy and radiation in 2020 continued on letrozole, obesity, remote 2011 PE. Also s/p bilateral hip replacement at [facility] on 08/17/23 on aspirin VTE prophylaxis. H/O PE in 2011. had been started on low dose lasix day before admission 20 mg daily. baseline creatinine 1.0; at baseline on presentation, then up to 1.3 48 hours later and up to 1.6 48 hrs after that; back to 1.2 today. she had IV contrast on 09/21. 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 Inf Dzs evaluated the pt 09/23 and recommends washout / possible revision if purulent drainage; pt also changed to ceftriaxone w/ likely 6 wk course. [facility] Ortho evaluated the patient prior to ID and recommends any further ortho interventions be done by her original surgeon, no urgent intervention needed. ongoing now dry cough; R incision not draining; no edema, no sob. tolerating po. denies new/worrisome voiding sx. ambulating short distances w/ walker inside room. rest of ROS is otherwise unremarkable. Her is at bedside and follows w/ interview. Allergies Allergy/AdvReac Type Severity Reaction Status Date / Time dichloralphenazone AdvReac RASH Verified 09/22/23 16:07 isometheptene AdvReac RASH Verified 09/22/23 16:07 Home Medications Medication Instructions Recorded Confirmed Type acetaminophen 500 mg tablet 1,000 mg PO Q8 09/22/23 09/22/23 History (Tylenol Extra Strength) amitriptyline 75 mg tablet 75 mg PO HS 09/22/23 09/22/23 History amoxicillin 500 mg capsule 2,000 mg PO UD 09/22/23 09/22/23 History aspirin 81 mg tablet,delayed 81 mg PO AMHS 09/22/23 09/22/23 History release atorvastatin 80 mg tablet 80 mg PO HS 09/22/23 09/22/23 History cyanocobalamin (vitamin B-12) 1,000 mcg PO QAM 09/22/23 09/22/23 History 1,000 mcg tablet cyclobenzaprine 10 mg tablet 10 mg PO TID PRN Muscle Spasm 09/22/23 09/22/23 History doxycycline hyclate 100 mg tablet 100 mg PO Q12 09/22/23 09/22/23 History famotidine 20 mg tablet 20 mg PO QAM 09/22/23 09/22/23 History fluconazole 100 mg tablet 100 mg PO QAM 09/22/23 09/22/23 History furosemide 20 mg tablet 40 mg PO QAM 09/22/23 09/22/23 History letrozole 2.5 mg tablet 2.5 mg PO QAM 09/22/23 09/22/23 History metformin 500 mg tablet,extended 500 mg PO BID 09/22/23 09/22/23 History release 24 hr miconazole nitrate 2 % topical 1 applic topical DAILY 09/22/23 09/22/23 History cream nadolol 20 mg tablet 20 mg PO HS 09/22/23 09/22/23 History oxycodone 5 mg tablet 5 mg PO DAILY PRN Severe Pain 09/22/23 09/22/23 History (Scale Score 7-10) riboflavin (vitamin B2) 100 mg 200 mg PO Q12 09/22/23 09/22/23 History tablet sennosides 8.6 mg tablet (senna) 8.6 mg PO DAILY 09/22/23 09/22/23 History vitamin A-vitamin C-vit E-min 1 tab PO BID 09/22/23 09/22/23 History tablet Patient History Medical History CKD (chronic kidney disease), stage III Malignant neoplasm of upper-outer quadrant of right breast in female, estrogen receptor positive (06/30/20) TMJ (dislocation of temporomandibular joint) Arthritis Microscopic colitis Migraines Surgical History (Updated 09/27/23 @ 15:13 by Stephenie Alejandre MD, PhD) S/P TAVR (transcatheter aortic valve replacement) s/p TAVR 06/05/23. Dr Lyons. [facility] History of hip replacement 08/17/23: Bilateral hip replacement. Dr Chito Cochran. [facility] History of cataract surgery Bilateral Hx of colonoscopy Family History Mother , 93yo Breast cancer Father , 69yo Lung cancer Dyslipidemia Hypertension Sister No problems noted. Sister Stroke Son No problems noted. Daughter No problems noted. 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 occupation: From [employer] Other Information That Helps Us Care for You: No Feels Safe at Home: Yes Safety Concerns: Feels Safe At This Time Diet: regular caffeine: No during the past year weight has: remained stable Assistive Devices: Walker and Wheelchair Review of Systems 2 Review of Systems: All systems reviewed & are unremarkable except as noted in HPI & below Physical Exam 2 Constitutional: well developed (sitting up in chair on RA), well nourished and cooperative; no acute distress Eyes: EOM intact bilaterally ENMT: Ears: no external ear abnormality Nose: no external nose abnormality Mouth: + dry oral mucous membranes Neck: no nuchal rigidity Respiratory: normal respiratory effort Auscultation: + diminished lung sounds Cardiovascular: Rate/Rhythm: regular rate and regular rhythm Heart Sounds: + murmur Extremities: no edema Gastrointestinal (Abdomen): Inspection/Auscultation: normal bowel sounds P ercussion/Palpation: abdomen soft; abdomen nontender Musculoskeletal: Extremities: strength 5/5 throughout Skin: no rashes, warm and dry Neurologic: swartz, fluent speech, no tremor Psychiatric: Orientation: alert and oriented x 3 Speech: normal rate/rhythm/volume of speech Results & Data Vital Signs (Past 12 Hours) Vital Signs Temp Pulse Pulse Resp BP Pulse Ox Pulse Ox 09/27/23 14:27 81 09/27/23 12:29 36.6 C 62 16 124/71 90 09/27/23 11:05 09/27/23 07:29 93 09/27/23 07:26 75 09/27/23 07:25 36.5 C 78 16 108/68 93 09/27/23 03:30 36.6 C 78 18 117/72 92 O2 Del Method O2 Del Method 09/27/23 14:27 09/27/23 12:29 Room Air 09/27/23 11:05 Room Air 09/27/23 07:29 Room Air 09/27/23 07:26 09/27/23 07:25 Room Air 09/27/23 03:30 Room Air Laboratory Results 09/27/23 05:59 09/27/23 05:59 Diagnostic Findings CXR:No active disease in the chest. CTA chest:Bilateral segmental and subsegmental pulmonary emboli. There is no airspace consolidation or pleural effusion. [employer] respiratory panel negative
[2023-09-27] MEDS: WARFARIN SOD 5 MG TAB PO SCH (15:49)
[2023-09-27] MEDS ORDERED: WARFARIN SOD 2 MG TAB PO SCH (16:00)
--- NOTE | 2023-09-27 17:32 | Hospitalist Progress Note ---
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 S/P bilateral hip replacement on 08/17/23, on aspirin BID VTE prophylaxis. +productive cough x 1.5 weeks, Denies CP, SOB, hemoptysis. H/O PE in 2011. CTA chest:Bilateral segmental and subsegmental pulmonary emboli. There is no airspace consolidation or pleural effusion. B/L LE Doppler: Occlusive superficial venous thrombus within the left greater saphenous vein at the junction with the common femoral vein. This extends into the common femoral vein as deep venous thrombosis.No additional foci of deep venous thrombosis are seen in either leg. ECHO w/ EF of 60-65%. LV size, systolic function, ventricular wall thickness and wall motion is normal. Trop neg. EKG w/ NSR. Acute DVT/PE in setting of recent surgery- Imaging noted as above. Second episode per patient. Hemodynamically stable, no right heart strain, No hypoxia. has history of VTE about 10 years ago and was on Coumadin for about 2 years per patient. - Patient prefers Coumadin rather than DOACs and hence on heparin drip with Coumadin. INR still subtherapeutic. Will increase Coumadin to 5 Mg daily and recheck INR in the morning. Patient does not recall her prior Coumadin dosing and I could not find on chart Review either. 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 Blood clx negative. - Seen by orthopedics- did not recommend any intervention and OP follow up. Dry dressing changes to right hip. Keep olinda until OP follow up on October 02. - Per ID, discontinue diflucan, doxycycline and augmentin and recommended starting ceftriaxone (if no wash out is planned ,if she is going to the OR would monitor off antibiotics for better yield) as she will likely need 6 weeks of IV antibiotics. SOFÍA on CKD: Improving. Nephro on board. S/p ivf. Lasix on hold. Recheck in am creatinine 1.3--> 1.26--> 1.56->1.28; baseline creatinine around 1.0 Renal US unremarkable Other chronic medical conditions: Continue with/resume home meds as and when able Aortic stenosis, status post TAVR 06/05/[address] Lucia at [facility]. T2DM: A1c 5.5 on July 2023. Hold metformin. Sliding scale insulin while in hospital. Hypertension: Continue nadolol Dyslipidemia: Continue atorvastatin Anemia: Chronic, hemoglobin around 9, monitor. Breast cancer, right: Status post partial mastectomy, radiation in 2020. On chronic letrozole. Continue DVT prophylaxis: On heparin drip with Coumadin; INR remains subtherapeutic Dispo- Plan for [facility] once INR therapeutic. Will need 6 weeks of iv cef triaxone Time spent- approx 50 mins Admission and Anticipated Discharge Date Admission Date: September 22, 2023 Subjective Patient was seen and examined at bedside. Denies any new issues. Leg edema is improving. Still with some cough. No fever, chills, chest pain or shortness of breath. no fever or chills. Reported dizziness during physical therapy evaluation and hence will check orthostatic vitals. Review of Systems Review of Systems: All systems reviewed & are unremarkable except as noted in Subjective Physical Exam Physical Exam: General: Lying comfortably in bed, not in distress, on room air HEENT: EOMI, DOREEN, MMM Chest: Clear breath sounds bilaterally, no wheezes or crackles CVS: Regular rate and rhythm, normal heart sounds, no murmur Abdomen: Soft, non tender, not distended, normal bowel sounds Neuro: Awake, alert, oriented, conversing well, non focal Extremities: Mild lower extremity edema Skin: incision site clean dry intact Results & Data Results & Data Vital Signs (Past 12 Hours) Vital Signs Temp Pulse Pulse Resp BP Pulse Ox Pulse Ox 09/27/23 15:52 36.7 C 81 18 111/71 96 09/27/23 14:27 81 09/27/23 12:29 36.6 C 62 16 124/71 90 09/27/23 11:05 07/18/24 07:29 93 09/27/23 07:26 75 09/27/23 07:25 36.5 C 78 16 108/68 93 O2 Del Method O2 Del Method 09/27/23 15:52 Room Air 09/27/23 14:27 09/27/23 12:29 Room Air 09/27/23 11:05 Room Air 09/27/23 07:29 Room Air 09/27/23 07:26 09/27/23 07:25 Room Air Laboratory Results Short CBC 09/27/23 Range/Units 05:59 WBC 7.87 (4.8-10.8) K/ul Hgb 8.8 L (12.0-16.0) g/dl Hct 28.5 L (37.0-47.0) % Plt Count 416 H (130-400) K/uL BMP 09/27/23 05:59 Sodium 139 Potassium 4.3 Chloride 108 H Carbon Dioxide 25 BUN 28 H Creatinine 1.24 H Glucose 106 H Calcium 8.9
[2023-09-27] MEDS: ACETAMINOPHEN 500 MG TAB PO PRN (20:44)
[2023-09-27 21:29] LABS: Appearance Urine Clear (Clear); Bilirubin Urine Negative (Negative); Blood Urine Negative (Negative); Color Urine Yellow; Glucose Urine UA Negative (Negative); Ketones Urine Negative (Negative); Leukocyte Esterase Urine Negative (Negative); Nitrite Urine Negative (Negative); Protein Urine Negative (Negative); Specific Gravity Urine 1.008 (1.000-1.030); Urobilinogen Urine Negative (Negative)
--- NOTE | 2023-09-28 14:38 | Infectious Disease Progress Nt ---
Date of Service September 28, 2023 Telehealth Information Note written after chart review Assessment & Plan (1) Prosthetic joint infection: Plan: This is a 68 y/o female w/ hx of DM2, CKD III, aortic stenosis s/p TAVR, R breast CA s/p partial mastectomy and radiation (2020), and b/l hip replacement (: Dr. Cochran), admitted [facility] on 09/22/23 for b/l segmental and subsegmental PE w/ DVT and suspected PJI of R hip w/ wound culture showing P mirabilis (09/22/23: I to cefazolin; S to CTX; drainage from R hip). No plan for any surgical evaluation/intervention at this time per ortho. The patient has been on ceftriaxone 2 gm iv qd as recommended by [facility] ID. Recommendations: - I agree w/ continuing ceftriaxone 2 gm iv qd w/ plan to complete a minimum of 6 weeks from 09/24 to 11/05/23. - Please, check CRP for baseline and then every other week while on ceftriaxone - Check weekly CBC w/ diff and CMP while on ceftriaxone - Patient may benefit from abx supression after completion of ceftriaxone which can be determined at outpatient f/u w/ ID w/in 3-5 weeks - Consider imaging the hips b/l w/ CT vs MRI for any obvious fluid collection/abscess as no imaging done since this admission: this may establish a baseline as the patient is being treated for presumed infection. - The patient will continue to follow up w/ ortho - ID signing off.
[2023-09-28] MEDS: POTASSIUM CHLORIDE CRTAB 20 MEQ TABCR PO SCH (16:09)
[2023-09-28 16:45] LABS: INR 1.6 (0.9-1.1); Prothrombin Time 16.4 Seconds (9.0-12.0)
[2023-09-28 17:24] LABS: ANTI-Xa, UFH(UnfractionatedHep 0.67 IU/ml (0.3-0.7)
[2023-09-28 17:38] LABS: BUN Creatinine Ratio 20.3 (10-20); Calcium 9.4 mg/dl (8.6-10.3); Creatinine Clr Calc Pharmacy 38.7 ml/min; Est GFR (African American) 49.4 ml/min; Est GFR (Non-African American) 42.6 ml/min; Potassium 4.4 mmol/L (3.5-5.1)
[2023-09-28 17:56] LABS: Hemoglobin 10.3 g/dl (12.0-16.0)
[2023-09-29 02:01] LABS: Hematocrit (blood only) 35.8 % (37.0-47.0); Hemoglobin 10.3 g/dl (12.0-16.0); Mean Corpuscular Hemoglobin 28.9 pg (25.0-34.0); Mean Corpuscular Hgb Conc 28.8 g/dL (32.0-36.0); Mean Corpuscular Volume 100.3 fL (80.0-100.0); Mean Platelet Volume 10.5 fL (9.4-12.4); Platelet Count 527 K/uL (130-400); RDW Coefficient of Variation 17.5 % (11.5-14.5); RDW Standard Deviation 62.8 fL (36.4-46.3); Red Blood Count 3.57 M/uL (4.20-5.40); White Blood Count 9.27 K/ul (4.8-10.8)
[2023-09-29 06:31] LABS: Albumin Globulin Ratio 0.7 (0.9-2); Albumin Level 2.8 gm/dl (3.4-5.0); BUN Creatinine Ratio 20.4 (10-20); Bilirubin,Total 0.3 mg/dl (0.2-1.0); C Reactive Protein 1.29 mg/dl (0-0.5); Calcium 9.2 mg/dl (8.6-10.3); Est GFR (African American) 43.6 ml/min; Est GFR (Non-African American) 37.6 ml/min; Potassium 4.6 mmol/L (3.5-5.1); Total Protein 6.8 gm/dl (6.0-8.3)
[2023-09-29 06:42] LABS: ANTI-Xa, UFH(UnfractionatedHep 0.66 IU/ml (0.3-0.7); Prothrombin Time 20.1 Seconds (9.0-12.0)
[2023-09-29 07:01] LABS: Hematocrit (blood only) 31.1 % (37.0-47.0); Hemoglobin 9.7 g/dl (12.0-16.0); Mean Corpuscular Hgb Conc 31.2 g/dL (32.0-36.0); Mean Corpuscular Volume 92.8 fL (80.0-100.0); Mean Platelet Volume 9.5 fL (9.4-12.4); Platelet Count 442 K/uL (130-400); RDW Coefficient of Variation 17.6 % (11.5-14.5); RDW Standard Deviation 58.5 fL (36.4-46.3); Red Blood Count 3.35 M/uL (4.20-5.40); White Blood Count 8.28 K/ul (4.8-10.8)
[2023-09-29] MEDS ORDERED: FUROSEMIDE 40 MG TAB PO SCH (09:00)
--- NOTE | 2023-09-29 10:36 | CT Scan Report ---
CT hip LT wo con, CT hip RT wo con CLINICAL HISTORY: prosthetic hip infexn- r/o fluid colection/abscess TECHNIQUE: Multidetector row helical CT of the bilateral hips was performed without intravenous contr ast. Coronal and sagittal reformations were obtained. Automated dose lowering techniques and/or adjus tment according to patient size were utilized for this examination. CT DOSE: 1001.38 mGy.cm Comparison: Comparison is made to pelvis radiograph for 02/29/2012 FINDINGS: The osseous structures are without fracture or dislocation. Bilateral hip arthroplasties are seen. No joint effusion is seen. Soft tissue swelling is seen bilaterally without drainable fluid collection s. IMPRESSION: Postsurgical changes are seen and there is bilateral soft tissue swelling. Findings may represent nava lulitis without abscess or underlying osteomyelitis. ACT 112: Negative or not required by law. Electronically signed by: Davis David M.D. 09/29/2023 10:35 AM
--- NOTE | 2023-09-29 13:52 | Hospitalist Progress Note ---
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 S/P bilateral hip replacement on 08/17/23, on aspirin BID VTE prophylaxis. +productive cough x 1.5 weeks, Denies CP, SOB, hemoptysis. H/O PE in 2011. CTA chest:Bilateral segmental and subsegmental pulmonary emboli. There is no airspace consolidation or pleural effusion. B/L LE Doppler: Occlusive superficial venous thrombus within the left greater saphenous vein at the junction with the common femoral vein. This extends into the common femoral vein as deep venous thrombosis.No additional foci of deep venous thrombosis are seen in either leg. ECHO w/ EF of 60-65%. LV size, systolic function, ventricular wall thickness and wall motion is normal. Trop neg. EKG w/ NSR. Acute DVT/PE in setting of recent surgery- Imaging noted as above. Second episode per patient. Hemodynamically stable, no right heart strain, No hypoxia. has history of VTE about 12 years ago and was on Coumadin for about 2 years per patient. - Patient prefers Coumadin rather than DOACs and hence on heparin drip with Coumadin. - INR therapeutic today at 2 today. Will continue heparin drip for today until INR therapeutic for 2 consecutive days. Continue coumadin 5 mg daily and recheck INR in am. S/p recent bilateral hip replacement on 08/17/[address] Chito Cochran at [facility] Prosthetic right hip infection with wound clx showing proteus mirabilis. Blood clx negative. - Seen by orthopedics- did not recommend any intervention and OP follow up. Dry dressing changes to right hip. Keep olinda until OP follow up on October 02. - ID recommends IV ceftriaxone 2gm daily for minimum of 6 weeks from 09/24-11/04 followed by possible antibiotic suppression which can be determined at OP ID f/u with ID in 3-5 weeks - Weekly CBC w/diff and CMP and biweekly CRP while on ceftriaxone - B/L hips CT done today to establish baseline per ID- no fluid collection or abscess noted. SOFÍA on CKD: Creatinine trend overall stable 1.3--> 1.26--> 1.56->1.28->1.4; baseline creatinine around 1.0. Renal US unremarkable. S/p ivf. Will continue to hold Lasix. Nephro on board. Recheck in am Other chronic medical conditions: Continue with/resume home meds as and when able Aortic stenosis, status post TAVR 06/05/[address] Lucia at [facility]. T2DM: A1c 5.5 on July 2023. Hold metformin. Sliding scale insulin while in hospital. Hypertension: Continue nadolol Dyslipidemia: Continue atorvastatin Anemia: Chronic, hemoglobin around 9, monitor. Breast cancer, right: Status post partial mastectomy, radiation in 2020. On chronic letrozole. Continue DVT prophylaxis: On heparin drip with Coumadin; INR remains subtherapeutic Dispo- Plan for [facility] once INR therapeutic. Will need 6 weeks of iv ceftriaxone Time spent- approx 50 mins Admission and Anticipated Discharge Date Admission Date: September 22, 2023 Subjective Patient was seen and examined at bedside. No new issues. Feels fine. No CP, SOB, N/V. Had BM. Normal appetite. Discussed about the labs and imaging. Review of Systems Review of Systems: All systems reviewed & are unremarkable except as noted in Subjective Physical Exam Physical Exam: General: Sitting comfortably in chair, not in distress, on room air HEENT: EOMI, DOREEN, MMM Chest: Clear breath sounds bilaterally, no wheezes or crackles CVS: Regular rate and rhythm, normal heart sounds, no murmur Abdomen: Soft, non tender, not distended, normal bowel sounds Neuro: Awake, alert, oriented, conversing well, non focal Extremities: Trace lower extremity edema Skin: incision site clean dry intact Results & Data Results & Data Vital Signs (Past 12 Hours) Vital Signs Temp Pulse Pulse Resp BP Pulse Ox O2 Del Method 09/29/23 13:30 97 09/29/23 11:39 36.8 C 80 18 116/80 98 Room Air 09/29/23 07:56 Room Air 09/29/23 07:54 68 09/29/23 07:48 36.5 C 68 18 111/73 98 Room Air 09/29/23 02:49 36.4 C L 73 16 106/71 94 Room Air Laboratory Results Short CBC 09/28/23 09/28/23 09/29/23 Range/Units 05:00 08:00 06:34 WBC 9.27 8.28 (4.8-10.8) K/ul Hgb 10.3 L 10.3 L 9.7 L (12.0-16.0) g/dl Hct 35.8 L 34.0 L 31.1 L (37.0-47.0) % Plt Count 527 H 442 H (130-400) K/uL BMP 09/28/23 09/29/23 03:00 05:49 Sodium 139 137 Potassium 4.4 4.6 Chloride 107 105 Carbon Dioxide 25 24 BUN 26 H 29 H Creatinine 1.28 H 1.42 H Glucose 146 H 104 H Calcium 9.4 9.2 Liver Function 09/29/23 Range/Units 05:49 Total Bilirubin 0.3 (0.2-1.0) mg/dl AST 46 H (13-39) U/L ALT 38 (7-52) U/L Alkaline Phosphatase 116 H (34-104) U/L Albumin 2.8 L (3.4-5.0) gm/dl
[2023-09-30 04:41] LABS: BUN Creatinine Ratio 24.8 (10-20); Calcium 9.3 mg/dl (8.6-10.3); Creatinine Clr Calc Pharmacy 38.5 ml/min; Est GFR (African American) 48.9 ml/min; Est GFR (Non-African American) 42.2 ml/min; Potassium 4.2 mmol/L (3.5-5.1)
[2023-09-30 05:05] LABS: Hematocrit (blood only) 31.8 % (37.0-47.0); Hemoglobin 9.8 g/dl (12.0-16.0); Mean Corpuscular Hemoglobin 28.7 pg (25.0-34.0); Mean Corpuscular Hgb Conc 30.8 g/dL (32.0-36.0); Mean Corpuscular Volume 93.3 fL (80.0-100.0); Mean Platelet Volume 9.7 fL (9.4-12.4); Platelet Count 474 K/uL (130-400); RDW Coefficient of Variation 17.9 % (11.5-14.5); RDW Standard Deviation 60.6 fL (36.4-46.3); Red Blood Count 3.41 M/uL (4.20-5.40); White Blood Count 8.58 K/ul (4.8-10.8)
[2023-09-30 05:12] LABS: INR 2.6 (0.9-1.1); Prothrombin Time 25.6 Seconds (9.0-12.0)
--- NOTE | 2023-09-30 13:54 | Hospitalist Progress Note ---
Date of Service September 30, 2023 Assessment & Plan (1) Pulmonary emboli: (2) Acute kidney injury superimposed on CKD: (3) Proteus mirabilis infection: (4) History of hip replacement: (5) S/P TAVR (transcatheter aortic valve replacement): (6) Left leg DVT: Plan 68-year-old female with PMH of HTN, dyslipidemia, DM II, CKD III, aortic stenosis s/p TAVR, RBBB, right breast CA s/p partial mastectomy and radiation in 2020 continued on letrozole, obesity presented to ER with c/o BLE edema x 1.5 weeks [employer]. S/P bilateral hip replacement on 08/17/23, on aspirin BID VTE prophylaxis. +productive cough x 1.5 weeks, Denies CP, SOB, hemoptysis. H/O PE in 2011. CTA chest:Bilateral segmental and subsegmental pulmonary emboli. There is no airspace consolidation or pleural effusion. B/L LE Doppler: Occlusive superficial venous thrombus within the left greater saphenous vein at the junction with the common femoral vein. This extends into the common femoral vein as deep venous thrombosis.No additional foci of deep venous thrombosis are seen in either leg. ECHO w/ EF of 60-65%. LV size, systolic function, ventricular wall thickness and wall motion is normal. Trop neg. EKG w/ NSR. Acute DVT/PE in setting of recent surgery- Imaging noted as above. Second episode per patient. Hemodynamically stable, no right heart strain, No hypoxia. has history of VTE about 12 years ago and was on Coumadin for about 2 years per patient. - Patient prefers Coumadin rather than DOACs and hence on heparin drip with Coumadin. - INR therapeutic for 2 consecutive days, now at 2.6. Will discontinue heparin drip and will give only 2 mg of coumadin today as INR is rapidly trending up and might actually overshoot tomorrow. Recheck INR in am. Continue coumadin 5 mg daily and recheck INR in am. 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 Blood clx negative. - Seen by orthopedics- did not recommend any intervention and OP follow up. Dry dressing changes to right hip. Keep olinda until OP follow up on October 02. - ID recommends IV ceftriaxone 2gm daily for minimum of 6 weeks from 09/24-11/04 followed by possible antibiotic suppression which can be determined at OP ID f/u with ID in 3-5 weeks - Weekly CBC w/diff and CMP and biweekly CRP while on ceftriaxone - B/L hips CT done today to establish baseline per ID- no fluid collection or abscess noted. SOFÍA on CKD: Creatinine trend overall stable 1.3--> 1.26--> 1.56->1.28->1.4->1.29; baseline creatinine around 1.0. Renal US unremarkable. S/p ivf. Will resume lasix. Nephro on board. Recheck in am Other chronic medical conditions: Continue with/resume home meds as and when able Aortic stenosis, status post TAVR 06/05/[address] Lucia at [facility] [place]. T2DM: A1c 5.5 on July 2023. Hold metformin. Sliding scale insulin while in hospital. Hypertension: Continue nadolol Dyslipidemia: Continue atorvastatin Anemia: Chronic, hemoglobin around 9, monitor. Breast cancer, right: Status post partial mastectomy, radiation in 2020. On chronic letrozole. Continue DVT prophylaxis: INR therapeutic on coumadin Dispo- Stable to go to [facility], awaiting insurance authorization. Will need 6 weeks of iv ceftriaxone Time spent- approx 35 mins Admission and Anticipated Discharge Date Admission Date: September 22, 2023 Subjective Patient was seen and examined at bedside. She feels fine. Still has some heaviness in left leg but no other issues. No fever, chills, CP, SOB, N/V. Discussed the labs and imaging findings. Review of Systems Review of Systems: All systems reviewed & are unremarkable except as noted in Subjective Physical Exam Physical Exam: General: Sitting comfortably in chair, not in distress, on room air HEENT: EOMI, DOREEN, MMM Chest: Clear breath sounds bilaterally, no wheezes or crackles CVS: Regular rate and rhythm, normal heart sounds, no murmur Abdomen: Soft, non tender, not distended, normal bowel sounds Neuro: Awake, alert, oriented, conversing well, non focal Extremities: Trace lower extremity edema Skin: incision site clean dry intact Results & Data Results & Data Vital Signs (Past 12 Hours) Vital Signs Temp Pulse Pulse Resp BP Pulse Ox O2 Del Method 09/30/23 11:22 36.7 C 84 18 118/81 99 Room Air 09/30/23 07:44 36.6 C 74 18 111/72 93 Room Air 09/30/23 07:19 69 09/30/23 03:41 36.5 C 72 16 114/72 92 Room Air Laboratory Results Short CBC 09/30/23 Range/Units 04:13 WBC 8.58 (4.8-10.8) K/ul Hgb 9.8 L (12.0-16.0) g/dl Hct 31.8 L (37.0-47.0) % Plt Count 474 H (130-400) K/uL BMP 09/30/23 04:13 Sodium 136 Potassium 4.2 Chloride 104 Carbon Dioxide 26 BUN 32 H Creatinine 1.29 H Glucose 102 H Calcium 9.3
[2023-09-30] MEDS: WARFARIN SOD 2 MG TAB PO SCH (16:49)
[2023-10-01 04:58] LABS: Hematocrit (blood only) 32.3 % (37.0-47.0); Hemoglobin 9.8 g/dl (12.0-16.0)
[2023-10-01 05:12] LABS: BUN Creatinine Ratio 21.5 (10-20); Calcium 9.6 mg/dl (8.6-10.3); Creatinine Clr Calc Pharmacy 31.5 ml/min; Est GFR (African American) 38.3 ml/min; Potassium 4.5 mmol/L (3.5-5.1)
[2023-10-01 05:27] LABS: ANTI-Xa, UFH(UnfractionatedHep < 0.10 IU/ml (0.3-0.7); INR 2.7 (0.9-1.1); Prothrombin Time 27.1 Seconds (9.0-12.0)
[2023-10-01] MEDS ORDERED: FUROSEMIDE 40 MG TAB PO SCH (09:00)
--- NOTE | 2023-10-01 13:28 | Hospitalist Progress Note ---
Date of Service October 01, 2023 Assessment & Plan (1) Pulmonary emboli: (2) Acute kidney injury superimposed on CKD: (3) Proteus mirabilis infection: (4) History of hip replacement: (5) S/P TAVR (transcatheter aortic valve replacement): (6) Left leg DVT: Plan 68-year-old female with PMH of HTN, dyslipidemia, DM II, CKD III, aortic stenosis s/p TAVR, RBBB, right breast CA s/p partial mastectomy and radiation in 2020 continued on letrozole, obesity presented to ER with c/o BLE edema x 1.5 weeks [employer]. S/P bilateral hip replacement on 08/17/23, on aspirin BID VTE prophylaxis. +productive cough x 1.5 weeks, Denies CP, SOB, hemoptysis. H/O PE in 2011. CTA chest:Bilateral segmental and subsegmental pulmonary emboli. There is no airspace consolidation or pleural effusion. B/L LE Doppler: Occlusive superficial venous thrombus within the left greater saphenous vein at the junction with the common femoral vein. This extends into the common femoral vein as deep venous thrombosis.No additional foci of deep venous thrombosis are seen in either leg. ECHO w/ EF of 60-65%. LV size, systolic function, ventricular wall thickness and wall motion is normal. Trop neg. EKG w/ NSR. Acute DVT/PE in setting of recent surgery- Imaging noted as above. Second episode per patient. Hemodynamically stable, no right heart strain, No hypoxia. has history of VTE about 12 years ago and was on Coumadin for about 2 years per patient. - Patient prefers Coumadin rather than DOACs and hence on heparin drip with Coumadin. - INR therapeutic on coumadin. S/p heparin drip discontinued 09/29. Will give coumadin 3 mg today. Likely will need between 3-4 mg daily. Recheck INR in am. S/p recent bilateral hip replacement on 08/17/[address] Chito Cochran [place] [facility] Prosthetic right hip infection with wound clx showing proteus mirabilis. Blood clx negative. - Seen by orthopedics- did not recommend any intervention and OP follow up. Dry dressing changes to right hip. Keep olinda until OP follow up on October 02. - ID recommends IV ceftriaxone 2gm daily for minimum of 6 weeks from 09/24-11/04 followed by possible antibiotic suppression which can be determined at OP ID f/u with ID in 3-5 weeks - Weekly CBC w/diff and CMP and biweekly CRP while on ceftriaxone - B/L hips CT done 09/29 to establish baseline per ID- no fluid collection or abscess noted. SOFÍA on CKD: Creatinine trend overall stable 1.3--> 1.26--> 1.56->1.28->1.4->1.29. Renal US unremarkable. S/p ivf. Lasix on hold. Seen by nephro. Recheck in am Other chronic medical conditions: Continue with/resume home meds as and when able Aortic stenosis, status post TAVR 06/05/[address] Lucia [place] [facility] [place] T2DM: A1c 5.5 on July 2023. Hold metformin. Sliding scale insulin while in hospital. Hypertension: Continue nadolol Dyslipidemia: Continue atorvastatin Anemia: Chronic, hemoglobin around 9, monitor. Breast cancer, right: Status post partial mastectomy, radiation in 2020. On chronic letrozole. Continue DVT prophylaxis: INR therapeutic on coumadin Dispo- Stable to go to [facility], awaiting insurance authorization. Will need 6 weeks of iv ceftriaxone Time spent- approx 35 mins Admission and Anticipated Discharge Date Admission Date: September 22, 2023 Subjective Patient was seen and examined at bedside. She feels fine. Still with some left leg heaviness but no worsening. No fever, chills, CP, SOB, N/V. Review of Systems Review of Systems: All systems reviewed & are unremarkable except as noted in Subjective Physical Exam Physical Exam: General: Sitting comfortably in chair, not in distress, on room air HEENT: EOMI, DOREEN, MMM Chest: Clear breath sounds bilaterally, no wheezes or crackles CVS: Regular rate and rhythm, normal heart sounds, no murmur Abdomen: Soft, non tender, not distended, normal bowel sounds Neuro: Awake, alert, oriented, conversing well, non focal Extremities: Trace lower extremity edema Skin: incision site clean dry intact Results & Data Results & Data Vital Signs (Past 12 Hours) Vital Signs Temp Pulse Pulse Resp BP Pulse Ox O2 Del Method 10/01/23 11:29 36.4 C L 79 16 117/72 96 Room Air 10/01/23 07:54 36.5 C 77 16 112/72 95 Room Air 10/01/23 07:03 71 07/22/24 03:46 36.4 C L 70 18 107/66 95 Room Air Laboratory Results Short CBC 10/01/23 Range/Units 04:17 Hgb 9.8 L (12.0-16.0) g/dl Hct 32.3 L (37.0-47.0) % BMP 10/01/23 04:17 Sodium 136 Potassium 4.5 Chloride 104 Carbon Dioxide 26 BUN 34 H Creatinine 1.58 H Glucose 97 Calcium 9.6
--- NOTE | 2023-10-01 15:14 | Discharge Summary ---
Date of Service October 01, 2023 Admission HPI Per Admitting Provider Patient is 68-year-old female with PMH HTN, dyslipidemia, DM II, CKD III, aortic stenosis s/p TAVR, RBBB, right breast CA s/p partial mastectomy and radiation in 2020 continued on letrozole, obesity presented to ER with c/o BLE edema x 1.5 weeks. History obtained from patient and inpatient and outpatient chart review. History hospitalization at [facility] [place] [place] 08/17/2023-08/26/2023 for elective bilateral hip replacement during which she had noted postop anemia, required ICU admission due to hypotension requiring pressors, received 4 units PRBC transfusion per discharge summary. Patient subsequently became volume overloaded and required diuresis. Was discharged on 6-week course of doxycycline per ortho. [facility] and was discharged from [facility] on 09/07/2023. Patient states using wheelchair and walking with walker. Seen by ortho on 09/12/23 per notes had noted redness incision site with some slight purulent drainage. New dressing applied to left hip incision and was instructed to keep in place until ortho f ollow up on 10/03/23. There was concern for yeast infection of incision and redness to skin folds and was ordered Diflucan x 3 weeks. Patient feels right incision area appears less red now but still notices some purulent drainage but does not feel it is worse. Wider wheelchair and hospital bed was ordered for patient. Patient states 1.5 weeks ago onset of BLE edema. She states woke up with BLE edema and didn't think it was a gradual accumulation. She does note approximate 18 pound weight gain during her August admission. Outpatient office notes weight 78kg on 08/08/23 and 87.5kg on 08/26/23. She also reports onset of clear productive cough 1.5 weeks. Denies chest pain, SOB or orthopnea. States BLE edema making it hard to ambulate and uncomfortable to sit in her wheelchair. Denies history of volume overload. States yesterday took Lasix 20mg and today took Lasix 40mg orally and has been urinating a lot today since taking. States has some red areas to buttocks that have been treating with Calmoseptine per home health recommendations. History PE in 2011 and treated with warfarin x 2 years. Has been on aspirin 81mg BID x 30 days for VTE prophylaxis per ortho. Denies hemoptysis, fever/chills, diaphoresis, N/V/D/C, RILEY, dizziness, syncope, vision changes, neck pain, palpitations, sore throat, rhinorrhea, abdominal pain, paresthesias, dysuria, hematuria. Admission Exam Per Admitting Provider General: no distress, obese female Head: normocephalic, atraumatic Eyes: conjunctiva non-injected, anicteric ENT: normal inspection external ears, nose, mucous membranes moist Neck: supple, trachea midline Lungs: no respiratory distress, 98% on RA, +rales noted bases, no wheezing/rhonchi CV: RRR, no murmur, 3+ edema extending to thighs bilaterally Abd: protuberant, normal BS, soft, non-tender Ext: no cyanosis, LLE: +edema, lower leg with erythema and slight warmth, non- tender, RLE: +edema without significant erythema, non-tender Neuro: A&O x 3, no focal deficits noted, normal affect Skin: warm, dry, +under bilateral breasts with slight erythema, +abdominal and groin skin folds with erythema that extends to right hip incision with olinda in place with superior aspect of incision with slight purulent drainage. + buttock erythema. Left hip incision with dressing in place Principal Diagnosis Acute DVT/PE on Coumadin, Right prosthetic hip infection with Proteus, SOFÍA on CKD Discharge Exam General: Sitting comfortably in chair, not in distress, on room air HEENT: EOMI, DOREEN, MMM Chest: Clear breath sounds bilaterally, no wheezes or crackles CVS: Regular rate and rhythm, normal heart sounds, no murmur Abdomen: Soft, non tender, not distended, normal bowel sounds Neuro: Awake, alert, oriented, conversing well, non focal Extremities: Trace lower extremity edema Skin: incision site clean dry intact Discharge Data Allergies Allergy/AdvReac Type Severity Reaction Status Date / Time dichloralphenazone AdvReac RASH Verified 09/22/23 16:07 isometheptene AdvReac RASH Verified 09/22/23 16:07 Consultations 09/22/23 14:35 ED Decision to Admit Stat 09/22/23 18:43 Consult Orthopedic Surgery Routine 09/23/23 08:39 Consult Infectious Diseases Routine 09/27/23 08:00 Consult Nephrology Routine Ordered Studies 09/22/23 13:06 US venous duplex leg [US venous doppler LE BI] Stat 09/22/23 15:43 CT angio chest PE protocol Stat 09/26/23 12:35 US Renal Bladder [US renal/blad retro comp] Routine 09/29/23 07:22 CT hip LT wo con Routine CT hip RT wo con Routine Laboratory Results WBC 8.58 K/ul (4.8-10.8) 09/30/23 04:13 RBC 3.41 M/uL (4.20-5.40) L 09/30/23 04:13 Hgb 9.8 g/dl (12.0-16.0) L 10/01/23 04:17 Hct 32.3 % (37.0-47.0) L 10/01/23 04:17 MCV 93.3 fL (80.0-100.0) 09/30/23 04:13 MCH 28.7 pg (25.0-34.0) 09/30/23 04:13 MCHC 30.8 g/dL (32.0-36.0) L 09/30/23 04:13 RDW Std Deviation 60.6 fL (36.4-46.3) H 09/30/23 04:13 RDW Coeff of Chely 17.9 % (11.5-14.5) H 09/30/23 04:13 Plt Count 474 K/uL (130-400) H 09/30/23 04:13 MPV 9.7 fL (9.4-12.4) 09/30/23 04:13 Immature Gran % (Auto) 0.4 % 09/26/23 05:35 Neut % (Auto) 53.1 % 09/26/23 05:35 Lymph % (Auto) 29.3 % 09/26/23 05:35 [place] % (Auto) 11.2 % 09/26/23 05:35 Eos % (Auto) 5.5 % 09/26/23 05:35 Baso % (Auto) 0.5 % 09/26/23 05:35 Neut # (Auto) 4.08 K/uL (1.40-6.50) 09/26/23 05:35 Lymph # (Auto) 2.25 K/uL (1.20-3.40) 09/26/23 05:35 [place] # (Auto) 0.86 K/uL (0.11-0.59) H 09/26/23 05:35 Eos # (Auto) 0.42 K/uL (0.00-0.50) 09/26/23 05:35 Baso # (Auto) 0.04 K/uL (0.00-0.20) 09/26/23 05:35 Immature Gran # (Auto) 0.03 K/uL (0.01-0.20) 09/26/23 05:35 PT 27.1 Seconds (9.0-12.0) H 10/01/23 04:17 INR 2.7 (0.9-1.1) H 10/01/23 04:17 APTT 28 Seconds (21-31) 09/22/23 17:00 PTT Ratio 1.0 09/22/23 17:00 Heparin Anti-Xa, Unfract < 0.10 IU/ml (0.3-0.7) L 10/01/23 04:17 Sodium 136 mmol/L (136-145) 10/01/23 04:17 Potassium 4.5 mmol/L (3.5-5.1) 10/01/23 04:17 Chloride 104 mmol/L (98-107) 10/01/23 04:17 Carbon Dioxide 26 mmol/L (21-32) 10/01/23 04:17 Anion Gap 6 (3-11) 10/01/23 04:17 BUN 34 mg/dl (6-23) H 10/01/23 04:17 Creatinine 1.58 mg/dl (0.6-1.2) H 10/01/23 04:17 Est Cr Clr Drug Dosing 31.5 ml/min 10/01/23 04:17 Est GFR ( Amer) 38.3 ml/min 10/01/23 04:17 Est GFR (Non-Af Amer) 33.0 ml/min 10/01/23 04:17 BUN/Creatinine Ratio 21.5 (10-20) H 10/01/23 04:17 Glucose 97 mg/dl (70-99(Fasting)) 10/01/23 04:17 POC Glucose 126 mg/dl (70-99) H 10/01/23 12:03 Calcium 9.6 mg/dl (8.6-10.3) 10/01/23 04:17 Phosphorus 3.8 mg/dl (2.5-4.9) 09/24/23 05:39 Magnesium 1.9 mg/dl (1.7-2.4) 09/24/23 05:39 Total Bilirubin 0.3 mg/dl (0.2-1.0) 09/29/23 05:49 Direct Bilirubin 0.1 mg/dl (0-0.2) 09/22/23 13:16 AST 46 U/L (13-39) H 09/29/23 05:49 ALT 38 U/L (7-52) 09/29/23 05:49 Alkaline Phosphatase 116 U/L (34-104) H 09/29/23 05:49 Troponin I High Sens 3.4 pg/ml (0-14) 09/22/23 13:16 C-Reactive Protein 1.29 mg/dl (0-0.5) H 09/29/23 05:49 B-Natriuretic Peptide 235 pg/ml (0-100) H 09/22/23 12:57 Total Protein 6.8 gm/dl (6.0-8.3) 09/29/23 05:49 Albumin 2.8 gm/dl (3.4-5.0) L 09/29/23 05:49 Globulin 4.0 gm/dl (2.5-4.0) 09/29/23 05:49 Albumin/Globulin Ratio 0.7 (0.9-2) L 09/29/23 05:49 Urine Color Yellow 09/27/23 21:08 Urine Appearance Clear (Clear) 09/27/23 21:08 Urine pH 7.0 (4.5-7.5) 09/27/23 21:08 Ur Specific [place] 1.008 (1.000-1.030) 09/27/23 21:08 Urine Protein Negative (Negative) 09/27/23 21:08 Urine Glucose (UA) Negative (Negative) 09/27/23 21:08 Urine Ketones Negative (Negative) 09/27/23 21:08 Urine Blood Negative (Negative) 09/27/23 21:08 Urine Nitrite Negative (Negative) 09/27/23 21:08 Urine Bilirubin Negative (Negative) 09/27/23 21:08 Urine Urobilinogen Negative (Negative) 09/27/23 21:08 Ur Leukocyte Esterase Negative (Negative) 09/27/23 21:08 Urine WBC (Auto) 0-5 /hpf (0-5) 09/22/23 14:42 Urine RBC (Auto) 0-2 /hpf (0-2) 09/22/23 14:42 U Hyaline Cast (Auto) 0-2 /lpf (0-2) 09/22/23 14:42 U Epithel Cells (Auto) 0-2 /hpf (0-2) 09/22/23 14:42 Urine Bacteria (Auto) None Seen (None Seen) 09/22/23 14:42 Adenovirus (PCR) Not Detected (NotDetected) 09/22/23 16:35 B. pertussis DNA (PCR) Not Detected (NotDetected) 09/22/23 16:35 B.parapertussis DNA PCR Not Detected (NotDetected) 09/22/23 16:35 C. pneumoniae DNA (PCR) Not Detected (NotDetected) 09/22/23 16:35 Coronavirus OC43 (PCR) Not Detected (NotDetected) 09/22/23 16:35 Coronavirus HKU1 (PCR) Not Detected (NotDetected) 09/22/23 16:35 Coronavirus 229E (PCR) Not Detected (NotDetected) 09/22/23 16:35 SARS-CoV-2 (PCR) Not Detected (NotDetected) 09/22/23 16:35 Coronavirus NL63 (PCR) Not Detected (NotDetected) 09/22/23 16:35 Human Metapneumovir PCR Not Detected (NotDetected) 09/22/23 16:35 Influenza Type A (PCR) Not Detected (NotDetected) 09/22/23 16:35 Influenza Type B (PCR) Not Detected (NotDetected) 09/22/23 16:35 M. pneumoniae (PCR) Not Detected (NotDetected) 09/22/23 16:35 Parainfluenza 1 (PCR) Not Detected (NotDetected) 09/22/23 16:35 Parainfluenza 2 (PCR) Not Detected (NotDetected) 09/22/23 16:35 Parainfluenza 3 (PCR) Not Detected (NotDetected) 07/13/24 16:35 Parainfluenza 4 (PCR) Not Detected (NotDetected) 09/22/23 16:35 RSV (PCR) Not Detected (NotDetected) 09/22/23 16:35 Entero/Rhino (PCR) Not Detected (NotDetected) 09/22/23 16:35 Impressions Venous Doppler Study 09/22/23 13:06 ULTRASOUND BILATERAL LOWER EXTREMITY VENOUS CLINICAL HISTORY: Lower extremity edema COMPARISON STUDY: Left lower extremity venous ultrasound dated 10/23/2005 TECHNIQUE: Real-time, grayscale, and color Doppler sonography of the deep veins of the right and left lower extremity was performed from the inguinal crease to the calf. Compression and augmentation were utilized. FINDINGS: Right lower extremity: There is no sonographic evidence of deep venous thrombosis in the right lower extremity. The common femoral, superficial femoral, and popliteal veins are patent and normally compressible. The greater saphenous vein and the profunda femoris vein at the junction with the common femoral vein are clear. The visualized calf veins are patent. Soft tissue edema is present in the right calf. Left lower extremity: There is occlusive deep superficial venous thrombus in the greater saphenous vein at the junction of the common femoral vein. This protrudes into the common femoral vein as deep venous thrombosis. The superficial femoral and popliteal veins are patent and normally compressible. The profunda femoris vein at the junction with the common femoral vein is clear. The visualized calf veins are patent. Soft tissue edema is present in the left calf. IMPRESSION: 1. There is occlusive superficial venous thrombus within the left greater saphenous vein at the junction with the common femoral vein. This extends into the common femoral vein as deep venous thrombosis. 2. No additional foci of deep venous thrombosis are seen in either leg. ACT 112: Negative or not required by law. Electronically signed by: Prosper Taylor M.D. 09/22/2023 2:25 PM Chest X-Ray 09/22/23 13:07 SINGLE VIEW CHEST CLINICAL HISTORY: Fluid overload FINDINGS: An AP, portable, upright chest radiograph is correlated with chest CT dated 01/05/2012. There is evidence of previous cardiac valve surgery. The cardiomediastinal silhouette is unremarkable noting atherosclerotic calcification of the thoracic aorta. The pulmonary vasculature is noncongested. Chronic interstitial thickening is similar to previous. There is bibasilar scarring/atelectasis. No airspace consolidation or pleural effusion is identified. No pneumothorax is seen. The skeletal structures are osteopenic. The bony thorax is grossly intact. Mild degenerative change is noted in the shoulders and spine. IMPRESSION: No active disease in the chest. ACT 112: Negative or not required by law. Electronically signed by: Prosper Taylor M.D. 09/22/2023 1:58 PM Chest CTA 09/22/23 15:43 CT ANGIOGRAM OF THE CHEST CLINICAL HISTORY: Deep venous thrombosis. Lower extremity edema. Cough. COMPARISON STUDY: Chest x-ray dated 09/22/2023. Chest CT dated 01/05/2012. TECHNIQUE: Following the IV administration of 116 cc of Optiray 320, CT angiog lena of the chest was performed from the upper abdomen to the thoracic inlet utilizing the pulmonary embolus protocol. Images are reviewed in the axial, sagittal, and coronal planes. 3-D MIPS images are created and assessed. IV contrast was administered without complication. A dose lowering technique was utilized adhering to the principles of ALARA. CT DOSE: 720.95 mGy.cm FINDINGS: Thyroid: Imaged portions of the thyroid gland are normal in size and attenuation. Thoracic aorta: There is atherosclerotic calcification of the thoracic aorta, which is normal in caliber and demonstrates 4-vessel variant arch anatomy. No dissection is seen. Pulmonary vasculature: The pulmonary trunk is normal in caliber. There are segmental and subsegmental pulmonary emboli within branches of both the right and left lower lobe pulmonary arteries. Subsegmental pulmonary embolus is also seen within branches of the right middle lobe and left upper lobe pulmonary arteries. Heart: There is evidence of previous aortic valve surgery. The heart is normal in size and without pericardial effusion. There are coronary artery calcifications. Lungs and pleural spaces: Evaluation of the lung parenchyma is degraded by motion artifact. No airspace consolidation or pleural effusion is identified. Atelectasis is noted at the lung bases. The trachea and central airways are clear. Mediastinum: There is no mediastinal lymphadenopathy. Faith: Clear. Axillae: There is no axillary lymphadenopathy. Upper abdomen: Partially visualized upper abdominal viscera is within normal limits. Skeletal structures: The skeletal structures are osteopenic. Degenerative change is noted in the shoulders and spine. No lytic or blastic bony lesions are seen. IMPRESSION: 1. Bilateral segmental and subsegmental pulmonary emboli as above. 2. There is no airspace consolidation or pleural effusion. 3. Additional findings as above. ACT 112: Negative or not required by law. Electronically signed by: Prosper Taylor M.D. 09/22/2023 4:34 PM Renal Ultrasound 09/26/23 12:35 US renal/blad retro comp CLINICAL HISTORY: SOFÍA TECHNIQUE: Multiple sonographic real-time images of the kidneys and bladder were obtained. COMPARISON: Comparison is made to CT abdomen pelvis 10/10/2008 FINDINGS: The right kidney measures 9.4 cm in length, and the left kidney measures 9.9 cm in length. The right kidney is normal in size, contour, cortical thickness, and echogenicity. No hydronephrosis is identified. No renal lesion is identified. The left kidney is normal in size, contour, cortical thickness and echogenicity. No hydronephrosis is identified. No renal lesion is identified. The bladder is partially distended. The right jet seen. IMPRESSION: Unremarkable examination and in particular no evidence of hydronephrosis. ACT 112: Negative or not required by law. Electronically signed by: Davis David M.D. 09/26/2023 4:[address] 09/29/23 07:22 CT hip LT wo con, CT hip RT wo con CLINICAL HISTORY: prosthetic hip infexn- r/o fluid colection/abscess TECHNIQUE: Multidetector row helical CT of the bilateral hips was performed without intravenous contrast. Coronal and sagittal reformations were obtained. Automated dose lowering techniques and/or adjustment according to patient size were utilized for this examination. CT DOSE: 1001.38 mGy.cm Comparison: Comparison is made to pelvis radiograph for 02/29/2012 FINDINGS: The osseous structures are without fracture or dislocation. Bilateral hip arthroplasties are seen. No joint effusion is seen. Soft tissue swelling is seen bilaterally without drainable fluid collections. IMPRESSION: Postsurgical changes are seen and there is bilateral soft tissue swelling. Findings may represent cellulitis without abscess or underlying osteomyelitis. ACT 112: Negative or not required by law. Electronically signed by: Davis David M.D. 09/29/2023 10:35 AM Hospital Course (1) Pulmonary emboli: (2) Acute kidney injury superimposed on CKD: (3) Proteus mirabilis infection: (4) History of hip replacement: (5) S/P TAVR (transcatheter aortic valve replacement): (6) Left leg DVT: Plan 68-year-old female with PMH of HTN, dyslipidemia, DM II, CKD III, aortic stenosis s/p TAVR, RBBB, right breast CA s/p partial mastectomy and radiation in 2020 continued on letrozole, obesity presented to ER with c/o BLE edema x 1.5 weeks [employer]. S/P bilateral hip replacement on 08/17/23, on aspirin BID VTE prophylaxis. +productive cough x 1.5 weeks, Denies CP, SOB, hemoptysis. H/O PE in 2011. CTA chest:Bilateral segmental and subsegmental pulmonary emboli. There is no airspace consolidation or pleural effusion. B/L LE Doppler: Occlusive superficial venous thrombus within the left greater saphenous vein at the junction with the common femoral vein. This extends into the common femoral vein as deep venous thrombosis.No additional foci of deep venous thrombosis are seen in either leg. ECHO w/ EF of 60-65%. LV size, systolic function, ventricular wall thickness and wall motion is normal. Trop neg. EKG w/ NSR. Acute DVT/PE in setting of recent surgery- Imaging noted as above. Second episode per patient. Hemodynamically stable, no right heart strain, No hypoxia. has history of VTE about 12 years ago and was on Coumadin for about 2 years per patient. - Patient prefers Coumadin rather than DOACs and hence on heparin drip with Coumadin. - INR therapeutic on coumadin. S/p heparin drip discontinued 09/29. Will give coumadin 3 mg today. Likely will need between 3-4 mg daily. Recheck INR in am. S/p recent bilateral hip replacement on 08/17/[address] Chito Cochran at [facility] [place] [place] Prosthetic right hip infection with wound clx showing proteus mirabilis. Blood clx negative. - Seen by orthopedics- did not recommend any intervention and OP follow up. Dry dressing changes to right hip. Keep olinda until OP follow up on October 02. - ID recommends IV ceftriaxone 2gm daily for minimum of 6 weeks from 09/24-11/04 followed by possible antibiotic suppression which can be determined at OP ID f/u with ID in 3-5 weeks - Weekly CBC w/diff and CMP and biweekly CRP while on ceftriaxone - B/L hips CT done 09/29 to establish baseline per ID- no fluid collection or abscess noted. SOFÍA on CKD: Creatinine trend overall stable 1.3--> 1.26--> 1.56->1.28->1.4->1.29. Renal US unremarkable. S/p ivf. Lasix on hold. Seen by nephro. Recheck in am Other chronic medical conditions: Continue with/resume home meds as and when able Aortic stenosis, status post TAVR 06/05/[address] Lucia at [facility] [place] [place]. T2DM: A1c 5.5 on July 2023. Hold metformin. Sliding scale insulin while in hospital. Hypertension: Continue nadolol Dyslipidemia: Continue atorvastatin Anemia: Chronic, hemoglobin around 9, monitor. Breast cancer, right: Status post partial mastectomy, radiation in 2020. On chronic letrozole. Continue Stable to go to [facility]. Denial was overturned after discussing with Dr Guerrero from the insurance company. Further management per rehab physician. Total Time Total Time Spent Total Time Spent (In Minutes): 42 Discharge Plan Discharge Items Patient Disposition: Transfer Inpatient Rehab Fac Reason For Visit: EDEMA Discharge Diagnosis: Acute DVT/PE on Coumadin, Right prosthetic hip infection with Proteus, SOFÍA on CKD Activity: Per Instructions section Non-emergency contact: Primary Care Provider and Surgeon Call non-emergency contact if: you have any medication questions, your symptoms worsen, your pain is concerning for you and you have a fever Follow-up/Referrals: Junior Chavez PA-C [Other] (Date & Time 10/03/2023 12:00 PM Provider Junior Chavez PA-C Department Orthopaedics, [place] ) Deon Dougherty MD [Primary Care Provider] - Diet: Carb Consistent or DM2 and Low Sodium (2gm) Addtl Attending Provider Instructions: Your have right hip infection. Per Infectious disease, Continue IV ceftriaxone 2gm daily for minimum of 6 weeks from 09/24-11/04 followed by possible antibiotic suppression which can be determined at OP ID f/u with ID in 3-5 weeks - Weekly CBC w/diff and CMP and biweekly CRP while on ceftriaxone You also have DVT/PE for which you are on coumadin. You will likely need coumadin between 3-4 mg daily as per the INR. Recommend 3 mg coumadin today and recheck INR tomorrow for further adjustment. Also recommend checking the renal function daily until it stabilizes. recommend to hold lasix and metformin until then. Pending Studies at Discharge: No Stand-Alone Forms: My [facility] Skilled Items Patient informed of condition?: Yes DNR: No Discharge Level of Care: Acute rehab Communicable Disease: No Discharge Prognosis: Stable Lines: Mid-Line Urinary Catheter: No Medications and DC Order Prescriptions: New warfarin 3 mg Tablet 3 mg PO DAILY@1600 Qty: 7 0RF Advanced Probiotic 625 mg (10 billion cell) Capsule 1 cap PO DAILY Qty: 30 0RF ceftriaxone 2 gram recon soln 2 g IV DAILY Continued cyclobenzaprine 10 mg Tablet 10 mg PO TID PRN (Reason: Muscle Spasm) atorvastatin 80 mg tablet 80 mg PO HS sennosides [senna] 8.6 mg Tablet 8.6 mg PO DAILY miconazole nitrate 2 % cream 1 applic TOPICAL DAILY Rx Instructions: Aply to right groin after cleansing with soap & water. amitriptyline 75 mg tablet 75 mg PO HS riboflavin (vitamin B2) 100 mg Tablet 200 mg PO Q12 cyanocobalamin (vitamin B-12) 1,000 mcg tablet 1,000 mcg PO QAM aspirin 81 mg tablet,delayed release (DR/EC) 81 mg PO AMHS acetaminophen [Tylenol Extra Strength] 500 mg Tablet 1,000 mg PO Q8 nadolol 20 mg Tablet 20 mg PO HS famotidine 20 mg tablet 20 mg PO QAM letrozole 2.5 mg tablet 2.5 mg PO QAM oxycodone 5 mg tablet 5 mg PO DAILY PRN (Reason: Severe Pain (Scale Score 7-10)) vitamin A-vitamin C-vit E-min Tablet 1 tab PO BID amoxicillin 500 mg capsule 2,000 mg PO UD Rx Instructions: Take 1 hour prior to dental work Held furosemide 20 mg tablet 40 mg PO QAM Hold Instructions: Resume on 10/03/23. once renal function stabilizes metformin 500 mg Tablet Extended Release 24 Hr 500 mg PO BID Hold Instructions: Resume on 10/03/23. once renal function stabilizes Discontinued fluconazole 100 mg tablet 100 mg PO QAM Rx Instructions: For 3 weeks, End 10/05/23 doxycycline hyclate 100 mg tablet 100 mg PO Q12 Rx Instructions: Take for 30 days, filled 09/06/23 Discharge Orders: Discharge Order (Routine); Ordered 10/01/23 Ordered By: Kang Anderson Admission Data Admit Date/Time: 09/22/23 15:24 Attending Provider: Kang Anderson Admit Provider: Simeon Lopes Primary Care Provider: Deon Dougherty Other Providers: Simeon Lopes; Brody Ireland; [facility]; Morgan Bergman; Khoa Dean; Genaro Chaudhry I.; Alexandro Mir II; Aspen Sage; Junior Riggs; John Vela; Ruth Ann Lerma; [facility] Other Interventions: Discharge Summary Assessment (RN) Last Done: 10/01/23 14:40
[2023-10-01] MEDS ORDERED: WARFARIN SOD 3 MG TAB PO SCH (16:00)
== END 2023-10-01 15:39 | DRG 299 ==
LOC: ED 12:29 → 2N 15:24 → SUATTDRO 15:24 → 2N 18:24

== ENCOUNTER 2024-10-02 09:36 | Inpatient (IN) ==
[2024-10-02] MEDS ORDERED: SODIUM CHLORIDE 0.9% 500 ML IV SCH (10:00)
--- NOTE | 2024-10-02 10:16 | Emergency Department Note ---
<Statement entered by Simeon Lopes MD - 10/03/24 18:14> No contribution to this note. Please refer to my own separate H&P. Simeon Lopes MD Impression & Plan Sepsis, Acute UTI, Ureteral stone, Hydronephrosis, Elevated lactic acid level, Hypoxia, Elevated liver enzymes, SOFÍA (acute kidney injury) ED Provider Note NAME: BLANCA POOLE AGE: 69 SEX: F : 1955 ARRIVES VIA: Ambulance INFORMANT: [Patient][nursing] ED PROVIDER(S): [Prosper Craig MD] CHIEF COMPLAINT: Weakness HISTORY OF PRESENT ILLNESS: The patient is a 69-year-old female whose had lower bilateral abdominal pain for a few days. She was thinking maybe she had kidney stones. Patient states that in addition, she has had diarrhea. This morning, the patient was quite weak and felt dizzy and lightheaded to stand. She was lowered to the ground by her , she may have had a brief syncopal event. She did not suffer any trauma. There was no chest pain. When EMS arrived, she was somewhat hypotensive and, had a low O2 saturation. She was placed on oxygen. When she arrived to our ED, her blood pressure was 90 systolic, her O2 saturation on room air was in the mid 80s, she required O2 supplementation. The patient denies any chest pain. She is not currently short of breath. She has not noticed fever. There has been no vomiting. PMHx/PSHx/Social Hx: See Below PHYSICAL EXAM: GENERAL: Patient is in no acute distress. HEENT: No acute trauma, normocephalic atraumatic, mucous membranes dry, no nasal congestion. NECK: No stridor, no adenopathy, no meningismus, trachea is midline. LUNGS: Clear to auscultation bilaterally when listening anterior, no wheeze, no rhonchi, breath sounds equal. HEART: Without murmurs gallops or rubs, regular rate and rhythm. ABDOMEN: Soft, nontender, no peritonitis. Obese. EXTREMITIES: No cyanosis, full range of motion of all the joints without pain or difficulty. NEUROLOGIC: Oriented x 3, no acute motor or sensory deficits, no focal weakness. Somnolent. SKIN: No jaundice, no diaphoresis. DIFFERENTIAL DIAGNOSIS: Bacteremia or sepsis, dehydration, diverticulitis, colitis, UTI, pneumonia, anemia, GI bleeding, among others. EMERGENCY DEPARTMENT PROCEDURES: MEDICAL DECISION MAKING: There is no leukocytosis or concerning anemia. There is a normal platelet count. INR is elevated at 2.4, consistent with her warfarin use. There was evidence for acute kidney injury with a creatinine of 2.54. There were some elevated liver enzymes. Lactic acid level was elevated at over 4 consistent with infection/dehydration. BNP was somewhat elevated consistent with potential fluid overload/CHF. Patient appeared to be in a euthyroid state. ECG shows a sinus rhythm, no obvious ST elevation. Cardiac enzyme testing x 1 was elevated. This troponin elevation could be secondary to cardiac injury or mismatch from her sepsis. Chest x-ray shows a potential CHF versus a poor inspiratory effort. There was no focal pneumonia. Urinalysis does show findings of infection. Abdominal and pelvis CT shows a left ureteral stone with hydronephrosis. On exam, the patient was hypoxic, hypotensive. She was somnolent and seemed pale. The patient was maintained on O2 supplementation. Multiple IVs were initiated. Patient received IV saline, 2000 cc. This should suffice for 30 cc/kg of saline per sepsis protocol based on her ideal body weight. After the IV hydration was given, she was still hypotensive. Levophed was ordered to be titrated per protocol. The patient was given IV cefepime as empiric antibiotic coverage. The patient does seem a bit more alert and interactive since treatment here in the ED. I did reach out to urology. The patient is in need of ureteral stenting to relieve the hydronephrosis. She will be transferred to the OR. I did speak with the ICU attending, I did speak with the patient and family, I spoke with case management, the on-call hospitalist was consulted. In short, the patient is septic from a urinary source. She is requiring IV pressor support. Her condition is critical. Prior/Outside records/notes reviewed: Today's EMS note describing her presentation and transport to this hospital. ECG per my interpretation: Indication was weakness. The ECG shows a normal sinus rhythm with a rate of 95. There is a right bundle branch block. There is some nonspecific ST change. There is no acute ST elevation, no PVCs. The QTc is 439. Continuous Cardiac Monitoring per my interpretation: An order was placed for continuous cardiac monitoring. The monitor shows a rate of 92 with normal sinus rhythm. Imaging/x-ray results per my interpretation: Chest x-ray shows a poor inspiratory effort, there is some potential mild fluid overload. No pneumonia. Chronic Medical/Social conditions affecting care: Advanced age. Care/Management discussed with: ICU-. Case management and the on-call hospitalist. Urology-Dr. Mitchell. Level of care consideration(s): After review of the information above and other included data: --I believe the patient requires escalation of care to admission Critical Care Note: I have personally spent 62 minutes of critical care time in the direct management of this patient. This includes bedside care, interpretation of diagnostic studies, and testing, discussion with consultants, patient, and family members, and other required patient management activities. This 62 minutes is in excess of all separately billable procedures. DISPOSITION: Admission Past Med/Surg History Problem List SOFÍA (acute kidney injury) (Acute) Elevated liver enzymes (Acute) Hypoxia (Acute) Elevated lactic acid level (Acute) Hydronephrosis (Acute) Ureteral stone (Acute) Acute UTI (Acute) Sepsis (Acute) History of DVT (deep vein thrombosis) High anion gap metabolic acidosis GERD (gastroesophageal reflux disease) Acute renal failure Septic shock Hydronephrosis of left kidney Left ureteral stone Injury of ear canal Prosthetic joint infection Acute kidney injury superimposed on CKD Proteus mirabilis infection Pulmonary emboli Left leg DVT Diabetes mellitus, type II Hypertension Acute deep vein thrombosis (DVT) of femoral vein of left lower extremity (Acute) History of surgery Reexcision for positive margin of right breast;SLN biopsy also done 07/21/20 History of surgery Excisional right breast biopsy on 06/30/20 Medical History CKD (chronic kidney disease), stage III Malignant neoplasm of upper-outer quadrant of right breast in female, estrogen receptor positive (06/30/20) TMJ (dislocation of temporomandibular joint) Arthritis Microscopic colitis Migraines Surgical History S/P TAVR (transcatheter aortic valve replacement) s/p TAVR 06/05/23. Dr [place]. [facility] [place] hip replacement 08/17/23: Bilateral hip replacement. Dr Chito Cochran. [facility] [place] of cataract surgery Bilateral Hx of colonoscopy Family History Mother , 93yo Breast cancer Father , 69yo Lung cancer Dyslipidemia Hypertension Sister No problems noted. Sister Stroke Son No problems noted. Daughter No problems noted. Social History Smoking Status: Never smoker Second Hand Exposure: No; Do You Dip or Chew Tobacco: No; Hx Alcohol Use: No Hx Substance Use: No Preferred Language: Chadian Communication Ability: Effective Visual Impairment: No Limitations Hearing Ability: Hard of Hearing [employer]ified [employer] Specialist Required: No Beliefs That Will Affect Care: None marital status: Current Living Situation: Spouse and Family Current Living Situation Comment: and daughter current occupational status: retired current occupation: From [employer] Other Information That Helps Us Care for You: No Feels Safe at Home: Yes Safety Concerns: Feels Safe At This Time Diet: regular caffeine: No during the past year weight has: remained stable Assistive Devices: Cane Allergies Allergies Allergy/AdvReac Type Severity Reaction Status Date / Time dichloralphenazone AdvReac RASH Verified 10/02/24 12:22 isometheptene AdvReac RASH Verified 10/02/24 12:22 Home Meds Home Medications Medication Instructions Recorded Confirmed acetaminophen 500 mg tablet 1,000 mg PO Q8 09/22/23 10/02/24 (Tylenol Extra Strength) amitriptyline 75 mg tablet 75 mg PO HS 09/22/23 10/02/24 amoxicillin 500 mg capsule 2,000 mg PO UD 09/22/23 10/02/24 atorvastatin 80 mg tablet 80 mg PO HS 09/22/23 10/02/24 cyanocobalamin (vitamin B-12) 1,000 mcg PO QAM 09/22/23 10/02/24 1,000 mcg tablet cyclobenzaprine 10 mg tablet 10 mg PO TID PRN Muscle Spasm 09/22/23 10/02/24 famotidine 20 mg tablet 20 mg PO QAM 09/22/23 10/02/24 letrozole 2.5 mg tablet 2.5 mg PO QAM 09/22/23 10/02/24 metformin 500 mg tablet,extended 500 mg PO BID 09/22/23 10/02/24 release 24 hr nadolol 20 mg tablet 20 mg PO HS 09/22/23 10/02/24 riboflavin (vitamin B2) 100 mg 200 mg PO Q12 09/22/23 10/02/24 tablet amlodipine 5 mg tablet 5 mg PO DAILY 08/19/24 10/02/24 benazepril 20 mg tablet 20 mg PO DAILY 08/19/24 10/02/24 ezetimibe 10 mg tablet 10 mg PO DAILY 08/19/24 10/02/24 ferrous sulfate 325 mg (65 mg 325 mg PO DAILY 08/19/24 10/02/24 iron) tablet (Feosol) [id number] 250 mg-dha 90 1 cap PO DAILY 08/19/24 10/02/24 mg-epa 160 mg-jmsv-[id number]-zeax capsule (Ocuvite Adult 50 Plus) triamcinolone acetonide 0.1 % 1 applic topical DAILY PRN flare 08/19/24 10/02/24 topical cream warfarin 3 mg tablet 1.5 mg PO 5XWK 10/02/24 10/02/24 warfarin 3 mg tablet 3 mg PO 2XWK 10/02/24 10/02/24 Results & Data (ED) Vital Signs Vital Signs - 24 hr 10/02/24 09:32 10/02/24 09:32 10/02/24 10:19 Temperature 37.0 C Temperature Source Oral Pulse Rate 93 H 88 Pulse Rate from SpO2 Sensor Respiratory Rate 14 Blood Pressure 90/60 L Blood Pressure Mean 70 Pulse Oximetry 85 L 95 Oxygen Delivery Method Room Air Nasal Cannula Oxygen Flow Rate 4 Sepsis Recent Fever Within 48 Hours No Sepsis New/Unexplained Change in Mental Status Yes Sepsis Action Taken by Nursing Physician Notified 10/02/24 11:00 10/02/24 11:15 10/02/24 11:16 Temperature Temperature Source Pulse Rate 88 85 Pulse Rate from SpO2 Sensor 83 Respiratory Rate 25 H 25 H Blood Pressure 79/52 L Blood Pressure Mean 64 Pulse Oximetry 95 Oxygen Delivery Method Nasal Cannula Oxygen Flow Rate 6 Sepsis Recent Fever Within 48 Hours Sepsis New/Unexplained Change in Mental Status Sepsis Action Taken by Nursing 10/02/24 11:18 10/02/24 11:24 10/02/24 11:26 Temperature Temperature Source Pulse Rate 86 84 Pulse Rate from SpO2 Sensor 86 84 Respiratory Rate 31 H 29 H Blood Pressure 94/59 L Blood Pressure Mean 66 Pulse Oximetry 97 95 Oxygen Delivery Method Nasal Cannula Nasal Cannula Oxygen Flow Rate 6 6 Sepsis Recent Fever Within 48 Hours Sepsis New/Unexplained Change in Mental Status Sepsis Action Taken by Nursing 10/02/24 11:30 10/02/24 11:42 10/02/24 11:45 Temperature Temperature Source Pulse Rate 85 Pulse Rate from SpO2 Sensor 85 Respiratory Rate 30 H Blood Pressure 91/60 L 91/59 L Blood Pressure Mean 70 65 Pulse Oximetry 96 Oxygen Delivery Method Nasal Cannula Oxygen Flow Rate 6 Sepsis Recent Fever Within 48 Hours Sepsis New/Unexplained Change in Mental Status Sepsis Action Taken by Nursing 10/02/24 11:48 10/02/24 11:51 Temperature Temperature Source Pulse Rate 85 83 Pulse Rate from SpO2 Sensor 85 83 Respiratory Rate 25 H 29 H Blood Pressure Blood Pressure Mean Pulse Oximetry 96 96 Oxygen Delivery Method Nasal Cannula Nasal Cannula Oxygen Flow Rate 6 6 Sepsis Recent Fever Within 48 Hours Sepsis New/Unexplained Change in Mental Status Sepsis Action Taken by [facility] Medications Current Medication List: was personally reviewed by me Laboratory Data Attestation: I reviewed the patient's lab results. 10/02/24 09:53 10/02/24 09:53 Lab Results 10/02/24 10/02/24 10/02/24 Range/Units 09:53 10:11 10:26 WBC 9.46 (4.8-10.8) K/ul RBC 4.54 (4.20-5.40) M/uL Hgb 13.3 (12.0-16.0) g/dl Hct 41.2 (37.0-47.0) % MCV 90.7 (80.0-100.0) fL MCH 29.3 (25.0-34.0) pg MCHC 32.3 (32.0-36.0) g/dL RDW Std Deviation 46.5 H (36.4-46.3) fL RDW Coeff of Chely 13.9 (11.5-14.5) % Plt Count 253 (130-400) K/uL MPV 9.9 (9.4-12.4) fL Immature Gran % (Auto) 1.6 % Neut % (Auto) 95.2 % Lymph % (Auto) 2.5 % [place] % (Auto) 0.4 % Eos % (Auto) 0.1 % Baso % (Auto) 0.2 % Neut # (Auto) 9.00 H (1.40-6.50) K/uL Lymph # (Auto) 0.24 L (1.20-3.40) K/uL [place] # (Auto) 0.04 L (0.11-0.59) K/uL Eos # (Auto) 0.01 (0.00-0.50) K/uL Baso # (Auto) 0.02 (0.00-0.20) K/uL Immature Gran # (Auto) 0.15 (0.01-0.20) K/uL Toxic Vacuolation 1+ Polychromasia 1+ Echinocytes 1+ PT 24.0 H (9.0-12.0) Seconds INR 2.4 H (0.9-1.1) APTT 34 H (21-31) Seconds PTT Ratio 1.3 Sodium 137 (136-145) mmol/L Potassium 3.4 L (3.5-5.1) mmol/L Chloride 105 (98-107) mmol/L Carbon Dioxide 19 L (21-32) mmol/L Anion Gap 13 H (3-11) BUN 42 H (6-23) mg/dl Creatinine 2.54 H (0.6-1.2) mg/dl Est Cr Clr Drug Dosing 21.0 ml/min eGFR 19.80 BUN/Creatinine Ratio 16.5 (10-20) Glucose 110 H (70-99(Fasting)) mg/dl Lactate 4.6 H* (0.4-2.0) mmol/L Calcium 8.6 (8.6-10.3) mg/dl Magnesium 1.8 (1.7-2.4) mg/dl Total Bilirubin 1.9 H (0.2-1.0) mg/dl AST 54 H (13-39) U/L ALT 33 (7-52) U/L Alkaline Phosphatase 275 H (34-104) U/L Troponin I High Sens 81.9 H* (0-14) pg/ml B-Natriuretic Peptide 216 H (0-100) pg/ml Total Protein 6.8 (6.0-8.3) gm/dl Albumin 3.1 L (3.4-5.0) gm/dl Globulin 3.7 (2.5-4.0) gm/dl Albumin/Globulin Ratio 0.8 L (0.9-2) Procalcitonin 61.90 H (0-0.5) ng/ml TSH 2.077 (0.300-4.500) uIu/ml Random Cortisol mcg/dl Urine Color Dark Yellow Urine Appearance Cloudy A (Clear) Urine pH 5.5 (4.5-7.5) Ur Specific [place] 1.015 (1.000-1.030) Urine Protein 2+ H (Negative) Urine Glucose (UA) Negative (Negative) Urine Ketones Negative (Negative) Urine Blood 3+ H (Negative) Urine Nitrite Positive A (Negative) Urine Bilirubin Negative (Negative) Urine Urobilinogen Negative (Negative) Ur Leukocyte Esterase 2+ H (Negative) Urine WBC (Auto) >50 H (0-5) /hpf Urine RBC (Auto) 6-10 H (0-2) /hpf U Hyaline Cast (Auto) 11-20 H (0-2) /lpf U Epithel Cells (Auto) 0-2 (0-2) /hpf Urine Bacteria (Auto) 4+ H (None Seen) Urine Comment 10/02/24 Range/Units 11:38 WBC (4.8-10.8) K/ul RBC (4.20-5.40) M/uL Hgb (12.0-16.0) g/dl Hct (37.0-47.0) % MCV (80.0-100.0) fL MCH (25.0-34.0) pg MCHC (32.0-36.0) g/dL RDW Std Deviation (36.4-46.3) fL RDW Coeff of Chely (11.5-14.5) % Plt Count (130-400) K/uL MPV (9.4-12.4) fL Immature Gran % (Auto) % Neut % (Auto) % Lymph % (Auto) % [place] % (Auto) % Eos % (Auto) % Baso % (Auto) % Neut # (Auto) (1.40-6.50) K/uL Lymph # (Auto) (1.20-3.40) K/uL [place] # (Auto) (0.11-0.59) K/uL Eos # (Auto) (0.00-0.50) K/uL Baso # (Auto) (0.00-0.20) K/uL Immature Gran # (Auto) (0.01-0.20) K/uL Toxic Vacuolation Polychromasia Echinocytes PT (9.0-12.0) Seconds INR (0.9-1.1) APTT (21-31) Seconds PTT Ratio Sodium (136-145) mmol/L Potassium (3.5-5.1) mmol/L Chloride (98-107) mmol/L Carbon Dioxide (21-32) mmol/L Anion Gap (3-11) BUN (6-23) mg/dl Creatinine (0.6-1.2) mg/dl Est Cr Clr Drug Dosing ml/min eGFR BUN/Creatinine Ratio (10-20) Glucose (70-99(Fasting)) mg/dl Lactate (0.4-2.0) mmol/L Calcium (8.6-10.3) mg/dl Magnesium (1.7-2.4) mg/dl Total Bilirubin (0.2-1.0) mg/dl AST (13-39) U/L ALT (7-52) U/L Alkaline Phosphatase (34-104) U/L Troponin I High Sens 55.8 H* D (0-14) pg/ml B-Natriuretic Peptide (0-100) pg/ml Total Protein (6.0-8.3) gm/dl Albumin (3.4-5.0) gm/dl Globulin (2.5-4.0) gm/dl Albumin/Globulin Ratio (0.9-2) Procalcitonin (0-0.5) ng/ml TSH (0.300-4.500) uIu/ml Random Cortisol 57.96 mcg/dl Urine Color Urine Appearance (Clear) Urine pH (4.5-7.5) Ur Specific [place] (1.000-1.030) Urine Protein (Negative) Urine Glucose (UA) (Negative) Urine Ketones (Negative) Urine Blood (Negative) Urine Nitrite (Negative) Urine Bilirubin (Negative) Urine Urobilinogen (Negative) Ur Leukocyte Esterase (Negative) Urine WBC (Auto) (0-5) /hpf Urine RBC (Auto) (0-2) /hpf U Hyaline Cast (Auto) (0-2) /lpf U Epithel Cells (Auto) (0-2) /hpf Urine Bacteria (Auto) (None Seen) Urine Comment Administered Medications Norepinephrine Bitartrate (Levophed/D5w) 4 mg in 250 mls @ 122.783 mls/hr IV .Q2H3M [facility]; Protocol Stop: 11/01/24 11:59 Last Titration: 10/02/24 15:56 Dose: 0.34 mcg/kg/min, 122.8 mls/hr Documented By: MAYUR Co-signed By: LESLYE Titration: 10/02/24 15:44 Dose: 0.36 mcg/kg/min, 130 mls/hr Documented By: NMK Co-signed By: LESLYE Admin: 10/02/24 15:37 Dose: 0.38 mcg/kg/min, 137.2 mls/hr Documented By: MAYUR Co-signed By: [facility] Titration: 10/02/24 15:37 Dose: Infused Documented By: ERICKK Co-signed By: [facility] Titration: 10/02/24 15:32 Dose: 0.4 mcg/kg/min, 144.5 mls/hr Documented By: NMK Co-signed By: [facility] Titration: 10/02/24 13:04 Dose: 0.17 mcg/kg/min, 61.4 mls/hr Documented By: HILDA Co-signed By: NA Titration: 10/02/24 13:00 Dose: 0.15 mcg/kg/min, 54.2 mls/hr Documented By: BK Co-signed By: NA Titration: 10/02/24 12:58 Dose: 0.13 mcg/kg/min, 46.9 mls/hr Documented By: BK Co-signed By: NA Titration: 10/02/24 12:55 Dose: 0.11 mcg/kg/min, 39.7 mls/hr Documented By: BK Co-signed By: NA Titration: 10/02/24 12:52 Dose: 0.09 mcg/kg/min, 32.5 mls/hr Documented By: BK Co-signed By: NA Titration: 10/02/24 12:47 Dose: 0.07 mcg/kg/min, 25.3 mls/hr Documented By: BK Co-signed By: NA Titration: 10/02/24 11:55 Dose: 0.05 mcg/kg/min, 18.9 mls/hr Documented By: BK Co-signed By: ALLISON Admin: 10/02/24 11:51 Dose: 0.05 mcg/kg/min, 18.1 mls/hr Documented By: HILDA Co-signed By: ALLISON Vasopressin 20 units/ Sodium (Chloride) 101 mls @ 12.12 mls/hr IV .Q8H20M DEIRDRE Stop: 11/01/24 14:14 Last Admin: 10/02/24 14:29 Dose: 0.04 unit/min, 12.1 mls/hr Documented By: MAYUR Co-signed By: MANE Discontinued Medications Sodium Chloride (Nss) 1,000 mls @ 999 mls/hr IV .Q1H1M ONE Stop: 10/02/24 10:55 Last Infusion: 10/02/24 12:04 Dose: Infused Documented By: Admin: 10/02/24 10:30 Dose: 999 mls/hr Documented By: MARILUZ Cefepime HCl (Maxipime 2000mg) 2,000 mg in 20 mls @ 5 mls/min IV NOW STA; Protocol Stop: 10/02/24 09:58 Last Admin: 10/02/24 10:30 Dose: 5 mls/min Documented By: MARILUZ Sodium Chloride (Nss) 500 mls @ 999 mls/hr IV .Q31M ONE Stop: 10/02/24 11:19 Last Infusion: 10/02/24 12:04 Dose: Infused Documented By: Admin: 10/02/24 11:01 Dose: 999 mls/hr Documented By: MARILUZ Sodium Chloride (Nss) 500 mls @ 999 mls/hr IV .Q31M ONE Stop: 10/02/24 12:23 Last Infusion: 10/02/24 15:29 Dose: Infused Documented By: Admin: 10/02/24 11:57 Dose: 999 mls/hr Documented By: HILDA Miscellaneous (Stat Iv Infusion Titration Per Protocol) 1 each N/A NOW STA Stop: 10/02/24 11:49 Last Admin: 10/02/24 15:29 Dose: Not Given Documented By: MAYUR Imaging Data Radiologist's Impression: Chest X-Ray 10/02/24 09:48 XR chest 1V portable CLINICAL HISTORY: weakness COMPARISON STUDY: 09/22/2023 FINDINGS: Stable cardiac valve repair. Stable mild cardiomegaly with mild pulmonary vascular congestion. Inspiration is shallow. No consolidation or pleural effusion seen. No pneumothorax. IMPRESSION: Mild CHF. ACT 112: Negative or not required by law. Electronically signed by: Jesús Doss M.D. 10/02/2024 10:24 AM Abdomen/Pelvis CT 10/02/24 10:38 CT OF THE ABDOMEN AND PELVIS WITHOUT CONTRAST CLINICAL HISTORY: Lower abdominal pain, chronic renal failure, diarrhea, hypotension. COMPARISON STUDY: CT of the abdomen and pelvis October 10, 2008. Renal ultrasound September 26, 2023. TECHNIQUE: Axial images of the abdomen and pelvis were obtained without IV contrast. Images were reviewed in the axial, sagittal, and coronal planes. Automated exposure control was utilized for the study. A dose lowering technique was utilized adhering to the principles of ALARA. FINDINGS: Prosthetic aortic valve is incidentally noted. The heart is mildly enlarged. There is no pericardial effusion. A 5 mm right middle lobe nodule is unchanged and CT of October 10, 2008. This is benign given stability. Mild groundglass opacities with mosaic attenuation within the lung bases are noted. A 7 mm x 4 mm distal left ureteral calculus results in mild left hydroureteronephrosis. Images of the pelvis are degraded by streak artifact from hip arthroplasties. There is urothelial thickening of the left collecting system and left ureter with moderate left perinephric stranding. There is no right hydronephrosis. There is a 3 mm left lower pole renal calculus. No right-sided urinary calculi are present. Evaluation of the remainder of the abdomen and pelvis is suboptimal on this unenhanced examination. Liver, spleen, adrenal glands and pancreas are unremarkable. Is no evidence for a bowel obstruction. Gas and gas within the bladder is likely from recent Cruz placement. The Cruz balloon is obscured by streak artifact from hip arthroplasties. IMPRESSION: 1. 7 mm x 4 mm distal left ureteral calculus which results in mild left hydroureteronephrosis. Urothelial thickening of the left collecting system and left ureter with perinephric stranding is likely related to the obstruction however a superimposed infectious process could appear similar. 2. 3 mm left lower pole renal calculus. No right-sided urinary calculi. 3. Streak artifact from bilateral hip arthroplasties obscures the pelvis. Gas within the bladder likely from Cruz placement. ACT 112: Negative or not required by law. Electronically signed by: Jose Ramirez M.D. 10/02/2024 11:16 AM Discharge Plan Visit Data Chief Complaint: Weakness Stated Complaint: WEAKNESS, LETHARGIC ED Provider: Prosper Craig Discharge Problem: Sepsis, Acute UTI, Ureteral stone, Hydronephrosis, Elevated lactic acid level, Hypoxia, Elevated liver enzymes, SOFÍA (acute kidney injury) Patient Disposition: Admitted As Inpatient Condition: Critical Discharge Instructions Interventions: ED Discharge Assessment Last Done: 10/02/24 12:50 Discharge Problem: Sepsis Qualifiers: Sepsis type: sepsis due to unspecified organism Sepsis acute organ dysfunction status: with acute organ dysfunction Severe sepsis acute organ dysfunction type: acute renal failure Acute renal failure type: unspecified Severe sepsis shock status: with septic shock Qualified Code(s): A41.9 - Sepsis, unspecified organism; R65.21 - Severe sepsis with septic shock; N17.9 - Acute kidney failure, unspecified Hydronephrosis Qualifiers: Hydronephrosis type: with renal calculous obstruction Qualified Code(s): N13.2 - Hydronephrosis with renal and ureteral calculous obstruction
[2024-10-02 10:20] LABS: Hematocrit (blood only) 41.2 % (37.0-47.0); Hemoglobin 13.3 g/dl (12.0-16.0); Mean Corpuscular Hemoglobin 29.3 pg (25.0-34.0); Mean Corpuscular Volume 90.7 fL (80.0-100.0); Platelet Count 253 K/uL (130-400); RDW Standard Deviation 46.5 fL (36.4-46.3); Red Blood Count 4.54 M/uL (4.20-5.40); White Blood Count 9.46 K/ul (4.8-10.8)
--- NOTE | 2024-10-02 10:25 | XRay Report ---
XR chest 1V portable CLINICAL HISTORY: weakness COMPARISON STUDY: 09/22/2023 FINDINGS: Stable cardiac valve repair. Stable mild cardiomegaly with mild pulmonary vascular congesti on. Inspiration is shallow. No consolidation or pleural effusion seen. No pneumothorax. IMPRESSION: Mild CHF. ACT 112: Negative or not required by law. Electronically signed by: Jesús Doss M.D. 10/02/2024 10:24 AM
[2024-10-02] MEDS: CEFEPIME 2000MG 2,000 MG/20 ML SYR IV STA (10:30)
[2024-10-02] MEDS: SODIUM CHLORIDE 0.9% 1,000 ML IV ONE (10:30)
[2024-10-02 10:36] LABS: Alanine Aminotransferase 33.0 U/L (7-52); Albumin Globulin Ratio 0.8 (0.9-2); Alkaline Phosphatase 275.0 U/L (34-104); Anion Gap 13.0 (3-11); Bilirubin,Total 1.9 mg/dl (0.2-1.0); Blood Urea Nitrogen 42.0 mg/dl (6-23); Calcium 8.6 mg/dl (8.6-10.3); Carbon Dioxide 19.0 mmol/L (21-32); Chloride 105.0 mmol/L (98-107); Creatinine Clr Calc Pharmacy 21.0 ml/min; Globulin 3.7 gm/dl (2.5-4.0); Glucose 110.0 mg/dl (70-99(Fasting)); Magnesium 1.8 mg/dl (1.7-2.4); Potassium 3.4 mmol/L (3.5-5.1); Sodium 137.0 mmol/L (136-145); Total Protein 6.8 gm/dl (6.0-8.3)
[2024-10-02 10:43] LABS: Appearance Urine Cloudy (Clear); Bacteria Urine Automated 4+ (None Seen); Epithelial Cell Urine Auto 0-2 /hpf (0-2); Glucose Urine UA Negative (Negative); WBC Urine Automated >50 /hpf (0-5)
[2024-10-02 10:48] LABS: Immature Granulocytes # (auto) 0.15 K/uL (0.01-0.20); Immature Granulocytes % (auto) 1.6 %; Polychromasia 1+; Toxic Vacuolation 1+
[2024-10-02 10:51] LABS: Thyroid Stimulating Hormone 2.077 uIu/ml (0.300-4.500)
[2024-10-02 10:52] LABS: INR 2.4 (0.9-1.1); Partial Thromboplastin Time 34 Seconds (21-31); Prothrombin Time 24.0 Seconds (9.0-12.0)
[2024-10-02] MEDS: SODIUM CHLORIDE 0.9% 500 ML IV ONE ×2 (11:01→11:57)
--- NOTE | 2024-10-02 11:19 | CT Scan Report ---
CT OF THE ABDOMEN AND PELVIS WITHOUT CONTRAST CLINICAL HISTORY: Lower abdominal pain, chronic renal failure, diarrhea, hypotension. COMPARISON STUDY: CT of the abdomen and pelvis October 10, 2008. Renal ultrasound September 26, 2023. TECHNIQUE: Axial images of the abdomen and pelvis were obtained without IV contrast. Images were revi ewed in the axial, sagittal, and coronal planes. Automated exposure control was utilized for the mary dy. A dose lowering technique was utilized adhering to the principles of ALARA. FINDINGS: Prosthetic aortic valve is incidentally noted. The heart is mildly enlarged. There is no pe ricardial effusion. A 5 mm right middle lobe nodule is unchanged and CT of October 10, 2008. This is be nign given stability. Mild groundglass opacities with mosaic attenuation within the lung bases are no steven. A 7 mm x 4 mm distal left ureteral calculus results in mild left hydroureteronephrosis. Images o f the pelvis are degraded by streak artifact from hip arthroplasties. There is urothelial thickening of the left collecting system and left ureter with moderate left perinephric stranding. There is no r ight hydronephrosis. There is a 3 mm left lower pole renal calculus. No right-sided urinary calculi a re present. Evaluation of the remainder of the abdomen and pelvis is suboptimal on this unenhanced ex amination. Liver, spleen, adrenal glands and pancreas are unremarkable. Is no evidence for a bowel ob struction. Gas and gas within the bladder is likely from recent Cruz placement. The Cruz balloon is obscured by streak artifact from hip arthroplasties. IMPRESSION: 1. 7 mm x 4 mm distal left ureteral calculus which results in mild left hydroureteronephrosis. Urothe lial thickening of the left collecting system and left ureter with perinephric stranding is likely re lated to the obstruction however a superimposed infectious process could appear similar. 2. 3 mm left lower pole renal calculus. No right-sided urinary calculi. 3. Streak artifact from bilateral hip arthroplasties obscures the pelvis. Gas within the bladder like ly from Cruz placement. ACT 112: Negative or not required by law. Electronically signed by: Jose Ramirez M.D. 10/02/2024 11:16 AM
[2024-10-02] MEDS: NOREPINEPHRINE/D5W 4 MG/250 ML PLCT IV SCH (11:51)
--- NOTE | 2024-10-02 11:59 | Urology Consultation ---
Date of Consultation October 02, 2024 Assessment & Plan (1) Left ureteral stone: (2) Hydronephrosis of left kidney: (3) Acute kidney injury superimposed on CKD: Plan We reviewed her CT imaging, specifically the 7 mm distal left ureteral stone We discussed options for acute stone management given patient's current condition. We discussed the likelihood of infection/sepsis given labs, recent UA, vital signs Discussed emergent cystoscopy and stent placement. Ureteral stents were discussed as well as postoperative issues and pain management. She is aware a second procedure would be needed for stone treatment. Risks and benefits of each were discussed. All questions were answered. was present for duration of discussion The patient would like to proceed with cystoscopy, left retrograde pyelogram, left ureteral stent placement. Risks and benefits to be reviewed with patient by Dr. Mitchell. OR notified. Will cover with IV cefepime preoperatively. Keep NPO. Urology will follow. Case was discussed with Dr. Mitchell who agreed with emergent stent placement. Patient will be transferred to ICU after surgical intervention. Please contact our service urgently if patient develops fever, or other acute changes. Attending note: Patient independently assessed, examined, interviewed, and evaluated. Patient septic being admitted to the ICU for possible impending septic shock with blood pressures low and possible need for pressors. Patient has undergone aggressive fluid resuscitation. All labs and vitals were reviewed please see the records for the full report. Patient critically ill with significant SOFÍA significant lactic acidosis up over 4 creatinine is 2.54 and white count is 9.46. Patient has grossly positive urine with positive UA Agree with note as above. Patient's vitals and labs were all reviewed. Pertinent values in the HPI and plan section. Imaging was reviewed interpreted by myself. Agree with read. Vitals were reviewed. Discussed findings extensively with patient and family. Reviewed with nurse practitioner as well as consulting physicians/team. Patient's complicated medical and surgical history was reviewed and summarized above. Patient's surgical, medical, social, and family history were all reviewed with pertinent values as above. Discussed patient's current diagnosis as well as concerns and issues. Reviewed different options moving forward. Discussed potential risks and benefits as well as possible options and concerns. Reviewed potential surgical options and interventions. Discussed potential issues and concerns related to intervention. Risk and benefits were discussed extensively with patient and any available family. Discussed potential risks related to anesthesia. Discussed risks of bleeding infection and injury. Reviewed extensively with anesthesia team due to need for acute emergent i ntervention. They were agreeable to move forward. Patient was getting central line placed by the ICU team. Risks and benefits discussed at length for procedure. These include bleeding, infection, injury to surrounding tissues or organs, and risks associated with anesthesia. Patient states understanding and agrees to proceed. Will sign consent and schedule. Patient was able to answer questions appropriately after resuscitation. Patient was willing to consent to move forward we will likely need broad-spectrum antibiotic coverage for continued management.. Plan for cystoscopy with left retrograde pyelogram and stent placement History of Present Illness History of Present Illness 69-year-old female who presented to the ED 10/02/2024 with bilateral abdominal pain. According to ED notes she has felt weak and dizzy for a few days. According to possibly a syncopal event this morning. EMS was called due to syncopal event and she was found to be hypotensive and hypoxic. CT STAT showed 7 mm distal left ureteral stone Labs reviewed-creatinine 2.54, WBCs 9.46, hemoglobin 13.3, lactate 4.6 UA 3+ blood, positive nitrates, 2+ leuks, greater than 50 WBCs, 6-10 RBCs, 4+ bacteria Urine and blood cultures are pending Patient currently hypotensive, on 6 L nasal cannula-96% Urgent/emergent consultation for acutely ill and septic patient with UTI, discomfort, and ill feelings. Patient and at bedside. She began feeling ill on Sunday, reported mostly weakness, left-sided pain that radiated down her legs. She denies recent fevers, chills, nausea, vomiting but overall has not felt well for 4 days. She went into her PCP yesterday for an appointment and a CT was scheduled at [facility] today. Unfortunately this morning she was feeling weak and tired and her called EMS due to possibly passing out. Recently developed gross hematuria, no other changes in urinary symptoms. She has no history of nephrolithiasis-personal or family. Also, discussed patient's medical/surgery history especially related to any history of urinary issues or stone disease. Patient is undergoing management for acute illness and is being admitted to undergo critical care. Hospitalist/ICU team has admitted and is undergoing observation with broad spectrum IV antibiotics, currently on cefepime. Allergies Allergy/AdvReac Type Severity Reaction Status Date / Time dichloralphenazone AdvReac RASH Verified 07/24/25 12:22 isometheptene AdvReac RASH Verified 10/02/24 12:22 Home Medications Medication Instructions Recorded Confirmed Type acetaminophen 500 mg tablet 1,000 mg PO Q8 09/22/23 10/02/24 History (Tylenol Extra Strength) amitriptyline 75 mg tablet 75 mg PO HS 09/22/23 10/02/24 History amoxicillin 500 mg capsule 2,000 mg PO UD 09/22/23 10/02/24 History atorvastatin 80 mg tablet 80 mg PO HS 09/22/23 10/02/24 History cyanocobalamin (vitamin B-12) 1,000 mcg PO QAM 09/22/23 10/02/24 History 1,000 mcg tablet cyclobenzaprine 10 mg tablet 10 mg PO TID PRN Muscle Spasm 09/22/23 10/02/24 History famotidine 20 mg tablet 20 mg PO QAM 09/22/23 10/02/24 History letrozole 2.5 mg tablet 2.5 mg PO QAM 09/22/23 10/02/24 History metformin 500 mg tablet,extended 500 mg PO BID 09/22/23 10/02/24 History release 24 hr nadolol 20 mg tablet 20 mg PO HS 09/22/23 10/02/24 History riboflavin (vitamin B2) 100 mg 200 mg PO Q12 09/22/23 10/02/24 History tablet amlodipine 5 mg tablet 5 mg PO DAILY 08/19/24 10/02/24 History benazepril 20 mg tablet 20 mg PO DAILY 08/19/24 10/02/24 History ezetimibe 10 mg tablet 10 mg PO DAILY 08/19/24 10/02/24 History ferrous sulfate 325 mg (65 mg 325 mg PO DAILY 08/19/24 10/02/24 History iron) tablet (Feosol) [id number] 250 mg-dha 90 1 cap PO DAILY 08/19/24 10/02/24 History mg-epa 160 br-ylws-wryw-zeax capsule (Ocuvite Adult 50 Plus) triamcinolone acetonide 0.1 % 1 applic topical DAILY PRN flare 08/19/24 10/02/24 History topical cream warfarin 3 mg tablet 1.5 mg PO 5XWK 10/02/24 10/02/24 History warfarin 3 mg tablet 3 mg PO 2XWK 10/02/24 10/02/24 History Patient History Medical History CKD (chronic kidney disease), stage III Malignant neoplasm of upper-outer quadrant of right breast in female, estrogen receptor positive (06/30/20) TMJ (dislocation of temporomandibular joint) Arthritis Microscopic colitis Migraines Surgical History S/P TAVR (transcatheter aortic valve replacement) s/p TAVR 06/05/23. Dr Lyons. [facility] [place] History of hip replacement 08/17/23: Bilateral hip replacement. Dr Chito Cochran. [facility] [place] History of cataract surgery Bilateral Hx of colonoscopy Family History Mother , 93yo Breast cancer Father , 69yo Lung cancer Dyslipidemia Hypertension Sister No problems noted. Sister Stroke Son No problems noted. Daughter No problems noted. Social History Smoking Status: Never smoker Second Hand Exposure: No; Do You Dip or Chew Tobacco: No; Hx Alcohol Use: No Hx Substance Use: No Preferred Language: Polish Communication Ability: Effective Visual Impairment: No Limitations Hearing Ability: Hard of Hearing Meal Packer Required: No Beliefs That Will Affect Care: None marital status: Current Living Situation: Spouse and Family Current Living Situation Comment: and daughter current occupational status: retired current occupation: From [employer] Other Information That Helps Us Care for You: No Feels Safe at Home: Yes Safety Concerns: Feels Safe At This Time Diet: regular caffeine: No during the past year weight has: remained stable Assistive Devices: Cane Review of Systems Review of Systems: All systems reviewed & are unremarkable except as noted in HPI & below Limited due to patient illness Constitutional: as per Subjective / HPI Genitourinary: as per Subjective / HPI Physical Exam Physical Exam: General: Acutely ill. Undergoing critical care management for acute severe infection HEENT: Normocephalic Atraumatic. Inspection normal. Cranial Nerves 2-12 Grossly intact. Nares are clear. Neck is supple. Normal inspection of face. Normal inspection of neck. Neurologic: No deficits on inspection. Baseline for motor function and sensory. Psychologic: Anxious, acute delirium secondary to illness Respiratory: Mild labored. No use of accessory muscles. No severe dyspnea. Cardiovascular: tachycardia Skin: [place] and Dry. No rashes or visible lesions. Febrile Extremities: Moving without issues. No motor deficits on inspection Lymphatics: Mild edema Abdomen: Mildly distended. No rebound or guarding. Mild suprapubic/flank tenderness Constitutional: + ill appearing Chronically and acutely ill-appearing, lethargic, pale Respiratory: able to speak in complete sentences and + tachypneic; does not use accessory muscles Musculoskeletal: Extremities: extremities normal to inspection Psychiatric: Orientation: alert and oriented x 3 Results & Data Vital Signs (Past 12 Hours) Vital Signs Temp Pulse Resp BP Pulse Ox O2 Del Method O2 Flow Rate 10/02/24 11:16 79/52 L 10/02/24 11:15 85 25 H 95 Nasal Cannula 6 10/02/24 11:00 88 25 H 10/02/24 10:19 88 10/02/24 09:32 95 Nasal Cannula 4 10/02/24 09:32 37.0 C 93 H 14 90/60 L 85 L Room Air PG Care Time/CCT Total # of Minutes Spent Total Time Spent with Patient: Total time spent is greater than 50% in coordination of care (as documented) at patient's floor/unit and/or counseling patient: Coding Level of Care Code 48622 INT INP/OBS CARE 3/75MIN Diagnoses Left ureteral stone N20.1 Hydronephrosis of left kidney N13.30 Acute kidney injury superimposed on CKD N17.9; N18.9
[2024-10-02] MEDS ORDERED: PROPOFOL IV EMULSION 10 MG/ML 20 ML VIAL IV ONE ×2 (12:21→14:23)
[2024-10-02] MEDS ORDERED: PHENYLEPHRINE HCL 10 MG/ML VIAL ONE (12:21)
[2024-10-02] MEDS ORDERED: PHENYLEPHRINE 100MCG/ML 5ML SYR ONE (12:21)
[2024-10-02] MEDS ORDERED: ETOMIDATE 2 MG/ML 20 ML VIAL IV ONE (12:21)
[2024-10-02] MEDS ORDERED: VASOPRESSIN 20 UNIT/ML VIAL ONE (12:26)
--- NOTE | 2024-10-02 12:33 | History & Physical Report ---
Date of Service October 02, 2024 Assessment & Plan (1) Septic shock: (2) Left ureteral stone: (3) Acute renal failure: Plan: 69-year-old female with history of status post TAVR, diabetes type 2, hypertension, PE/DVT on Coumadin, presenting with abdominal pain and weakness x 4 days. SEPTIC SHOCK SECONDARY TO COMPLICATED URINARY TRACT INFECTION, POSSIBLE PYELONEPHRITIS UROLITHIASIS, LEFT hypotensive, in acute renal failure lactic acid 4.6, repeat lactic acid pending Levophed started history of Klebsiella UTI based on outpatient records Urine culture from PCP office 10/01/24: Pending repeat urine culture obtained at the ER: Pending Blood cultures obtained at the ER: Pending IV cefepime for now Check nasal MRSA swab Monitor volume status closely, mild CHF on chest x-ray Urology service consult Admit to ICU ACUTE HYPOXIA, POSSIBLE MILD CHF BNP 200s CXR: mild CHF pattern echo ordered ACUTE RENAL FAILURE SECONDARY TO SEPTIC SHOCK, POSSIBLE OBSTRUCTIVE UROPATHY, PRE-RENAL ETIOLOGY FROM POOR ORAL INTAKE baseline crea 1.2, now 2.5 management of septic shock, urolithiasis as per above IV fluids also given HISTORY OF ACUTE PE/DVT INR 2.4 hold coumadin for now in light of possible procedure HISTORY OF AORTIC STENOSIS, S/P TAVR MAY 2023 DM 2 Insulin sliding scale Pharmacy glycemic consult HTN currently hypotensive hold BP meds HISTORY OF BILATERAL HIP REPLACEMENT, AUGUST 2023 HISTORY OF BREAST CANCER DVT prophylaxis has history of acute pe/dvt last year INR 2.4, hold coumadin for possible procedure Full Code plan of care discussed with patient's in detail and at length all questions answered he is understanding, agreeable, comfortable with the plan of care History of Present Illness Chief Complaint: abdominal pain, Weakness x 4 days Primary Care Provider: Deon Dougherty MD 69-year-old female with history of status post TAVR, diabetes type 2, hypertension, PE/DVT on Coumadin, presenting with abdominal pain and weakness x 4 days. History obtained from patient and mostly from her at the bedside as patient was not feeling well. Last Sunday, patient experienced dizziness, room spinning around her, worse with head movements. The next day, patient was still very dizzy and also reported bilateral lower abdominal pain. She also had episodes of dysuria and hematuria, Diarrhea 1-2 episodes per day. Patient still persistently weak since then. She was able to see her primary care Provider yesterday who ordered a urinalysis, urine culture and CT abdomen and pelvis. this morning, patient's noted that the patient was very weak, barely responding, eyes rolling upward, unable to get up from bed. Upon EMS arrival, patient was noted to be hypotensive and hypoxic. At the ED, blood pressure systolic 90s, O2 sats mid 80s, requiring O2 supplementation. Creatinine 2.5 Lactic acid 4.6 urinalysis (+) UTI CT abdomen pelvis: 1. 7 mm x 4 mm distal left ureteral calculus which results in mild left hydroureteronephrosis. Urothelial thickening of the left collecting system and left ureter with perinephric stranding is likely related to the obstruction however a superimposed infectious process could appear similar. 2. 3 mm left lower pole renal calculus. No right-sided urinary calculi. On exam, patient seen resting in bed, weak, oriented, answers questions appropriately.. She states she feels very tired, Has some mild dyspnea, but no chest pain, headache, dizziness. Allergies Allergy/AdvReac Type Severity Reaction Status Date / Time dichloralphenazone AdvReac RASH Verified 10/02/24 12:22 isometheptene AdvReac RASH Verified 10/02/24 12:22 Home Medications Medication Instructions Recorded Confirmed Type acetaminophen 500 mg tablet 1,000 mg PO Q8 09/22/23 10/02/24 History (Tylenol Extra Strength) amitriptyline 75 mg tablet 75 mg PO HS 09/22/23 10/02/24 History amoxicillin 500 mg capsule 2,000 mg PO UD 09/22/23 10/02/24 History atorvastatin 80 mg tablet 80 mg PO HS 09/22/23 10/02/24 History cyanocobalamin (vitamin B-12) 1,000 mcg PO QAM 09/22/23 10/02/24 History 1,000 mcg tablet cyclobenzaprine 10 mg tablet 10 mg PO TID PRN Muscle Spasm 09/22/23 10/02/24 History famotidine 20 mg tablet 20 mg PO QAM 09/22/23 10/02/24 History letrozole 2.5 mg tablet 2.5 mg PO QAM 09/22/23 10/02/24 History metformin 500 mg tablet,extended 500 mg PO BID 09/22/23 10/02/24 History release 24 hr nadolol 20 mg tablet 20 mg PO HS 09/22/23 10/02/24 History riboflavin (vitamin B2) 100 mg 200 mg PO Q12 09/22/23 10/02/24 History tablet amlodipine 5 mg tablet 5 mg PO DAILY 08/19/24 10/02/24 History benazepril 20 mg tablet 20 mg PO DAILY 08/19/24 10/02/24 History ezetimibe 10 mg tablet 10 mg PO DAILY 08/19/24 10/02/24 History ferrous sulfate 325 mg (65 mg 325 mg PO DAILY 08/19/24 10/02/24 History iron) tablet (Feosol) [id number]-dxy-[id number] 250 mg-dha 90 1 cap PO DAILY 08/19/24 10/02/24 History mg-epa 160 nf-tcji-ecqa-zeax capsule (Ocuvite Adult 50 Plus) triamcinolone acetonide 0.1 % 1 applic topical DAILY PRN flare 08/19/24 10/02/24 History topical cream warfarin 3 mg tablet 1.5 mg PO 5XWK 10/02/24 10/02/24 History warfarin 3 mg tablet 3 mg PO 2XWK 10/02/24 10/02/24 History Past Med/Surg History Problem List Acute renal failure Septic shock Hydronephrosis of left kidney Left ureteral stone Injury of ear canal Prosthetic joint infection Acute kidney injury superimposed on CKD Proteus mirabilis infection Pulmonary emboli Left leg DVT Diabetes mellitus, type II Hypertension Acute deep vein thrombosis (DVT) of femoral vein of left lower extremity (Acute) History of surgery Reexcision for positive margin of right breast;SLN biopsy also done 07/21/20 History of surgery Excisional right breast biopsy on 06/30/20 Medical History CKD (chronic kidney disease), stage III Malignant neoplasm of upper-outer quadrant of right breast in female, estrogen receptor positive (06/30/20) TMJ (dislocation of temporomandibular joint) Arthritis Microscopic colitis Migraines Surgical History S/P TAVR (transcatheter aortic valve replacement) s/p TAVR 06/05/23. [place] [facility] [place] of [place]/17/23: [place]ilateral [place]. [place]ito [place]ran[place] [facility] [place] of [place] surgery Bilateral Hx of colonoscopy Family History Mother , 93yo Breast cancer Father , 69yo Lung cancer Dyslipidemia Hypertension Sister No problems noted. Sister Stroke Son No problems noted. Daughter No problems noted. Social History Smoking Status: Unknown if ever smoked Second Hand Exposure: No; Do You Dip or Chew Tobacco: No; Hx Alcohol Use: No Hx Substance Use: No Preferred Language: Pashto Communication Ability: Effective Visual Impairment: No Limitations Hearing Ability: Hard of Hearing Medical Supervisor Required: No Beliefs That Will Affect Care: None marital status: Current Living Situation: Spouse and Family Current Living Situation Comment: and daughter current occupational status: retired current occupation: From [employer] Feels Safe at Home: Yes Diet: regular caffeine: No during the past year weight has: remained stable Assistive Devices: Walker and Wheelchair Review of Systems Review of Systems: all noted and negative except for above Physical Exam Physical Exam: General- oriented x 3, weak, drowsy, not in distress, speaks in sentences with no effort or accessory muscle use Head- atraumatic Eyes- PERRL, EOMI, anicteric ENT- oropharynx clear Neck- supple, no JVD, no adenopathy, no thyromegaly; carotids +2/2, no bruits appreciated Lungs- clear to auscultation bilaterally, no rales/wheezes Heart- normal rate, regular rhythm; no murmur, no gallop, no rub appreciated Abdomen- normal bowel sounds, nondistended, soft,(+) mild lower abdominal tenderness, no masses or hepatosplenomegaly Extremities- no pretibial edema, no calf tenderness; peripheral pulses intact Neuro- alert, oriented x 3; CN 2-12 grossly intact; motor 5/5 bilaterally;sensation 100% on all extremities; no other gross focal neurologic deficits Skin- warm & dry Results & Data Results & Data Vital Signs (Past 12 Hours) Vital Signs Temp Pulse Resp BP Pulse Ox O2 Del Method O2 Flow Rate 10/02/24 12:00 85/61 L 10/02/24 11:57 83 32 H 95 Nasal Cannula 6 10/02/24 11:56 84/60 L 10/02/24 11:51 83 29 H 96 Nasal Cannula 6 10/02/24 11:48 85 25 H 96 Nasal Cannula 6 10/02/24 11:45 91/59 L 10/02/24 11:42 85 30 H 96 Nasal Cannula 6 10/02/24 11:30 91/60 L 10/02/24 11:26 94/59 L 10/02/24 11:24 84 29 H 95 Nasal Cannula 6 10/02/24 11:18 86 31 H 97 Nasal Cannula 6 10/02/24 11:16 79/52 L 10/02/24 11:15 85 25 H 95 Nasal Cannula 6 10/02/24 11:00 88 25 H 10/02/24 10:19 88 10/02/24 09:32 95 Nasal Cannula 4 10/02/24 09:32 37.0 C 93 H 14 90/60 L 85 L Room Air all noted and reviewed including below Code Status & VTE Plan VTE Prophylaxis Plan VTE Prophylaxis will be ordered: Yes
--- NOTE | 2024-10-02 12:37 | Anesthesiology Consultation ---
Date of Service October 02, 2024 Assessment & Plan Chart Review Chart Review: Acceptable Risk for Surgery and Patient NOT seen in Pre Admission Testing Consults Requested none History Surgery Operation Date: 10/02/24 15:15 Proposed Procedures p Cystoscopy, Left Ureteral Stent Placement - Asad Mitchell, Height/Weight Height: 4 ft 11 in Weight: 101 kg Allergies Allergy/AdvReac Type Severity Reaction Status Date / Time dichloralphenazone AdvReac RASH Verified 10/02/24 12:22 isometheptene AdvReac RASH Verified 10/02/24 12:22 Medications Home Medications Medication Instructions Recorded Confirmed Last Taken acetaminophen 500 mg tablet 1,000 mg PO Q8 09/22/23 10/02/24 10/02/24 (Tylenol Extra Strength) amitriptyline 75 mg tablet 75 mg PO HS 09/22/23 10/02/24 10/01/24 amoxicillin 500 mg capsule 2,000 mg PO UD 09/22/23 10/02/24 Unknown atorvastatin 80 mg tablet 80 mg PO HS 09/22/23 10/02/24 10/01/24 cyanocobalamin (vitamin B-12) 1,000 mcg PO QAM 09/22/23 10/02/24 10/02/24 1,000 mcg tablet cyclobenzaprine 10 mg tablet 10 mg PO TID PRN Muscle Spasm 09/22/23 10/02/24 Unknown famotidine 20 mg tablet 20 mg PO QAM 09/22/23 10/02/24 10/02/24 letrozole 2.5 mg tablet 2.5 mg PO QAM 09/22/23 10/02/24 10/02/24 metformin 500 mg tablet,extended 500 mg PO BID 09/22/23 10/02/24 10/02/24 release 24 hr nadolol 20 mg tablet 20 mg PO HS 09/22/23 10/02/24 10/01/24 riboflavin (vitamin B2) 100 mg 200 mg PO Q12 09/22/23 10/02/24 10/02/24 tablet amlodipine 5 mg tablet 5 mg PO DAILY 08/19/24 10/02/24 10/02/24 benazepril 20 mg tablet 20 mg PO DAILY 08/19/24 10/02/24 10/02/24 ezetimibe 10 mg tablet 10 mg PO DAILY 08/19/24 10/02/24 10/02/24 ferrous sulfate 325 mg (65 mg 325 mg PO DAILY 08/19/24 10/02/24 10/01/24 iron) tablet (Feosol) hnnuvpdt-wwu- 250 mg-dha 90 1 cap PO DAILY 08/19/24 10/02/24 10/02/24 mg-epa 160 sm-fhfv-hoes-zeax capsule (Ocuvite Adult 50 Plus) triamcinolone acetonide 0.1 % 1 applic topical DAILY PRN flare 08/19/24 10/02/24 Unknown topical cream warfarin 3 mg tablet 1.5 mg PO 5XWK 10/02/24 10/02/24 09/29/24 warfarin 3 mg tablet 3 mg PO 2XWK 10/02/24 10/02/24 10/01/24 Active Medications Generic Name Dose Route Start Last Admin Trade Name Freq PRN Reason Stop Dose Admin Norepinephrine Bitartrate 4 mg in 250 mls @ 18.056 mls/hr 10/02/24 12:00 10/02/24 11:55 Levophed/D5w IV 11/01/24 11:59 0.05 mcg/kg/min .[id number] DEIRDRE 18.9 mls/hr Titration Protocol 0.05 MCG/KG/MIN Past Medical History Medical History CKD (chronic kidney disease), stage III Malignant neoplasm of upper-outer quadrant of right breast in female, estrogen receptor positive (06/30/20) TMJ (dislocation of temporomandibular joint) Arthritis Microscopic colitis Migraines Past Family History Family History Mother , 93yo Breast cancer Father , 69yo Lung cancer Dyslipidemia Hypertension Sister No problems noted. Sister Stroke Son No problems noted. Daughter No problems noted. Past Surgical History Surgical History S/P TAVR (transcatheter aortic valve replacement) s/p TAVR 06/05/23. Dr [place] [facility] [place] of [place] replacement 08/17/23: Bilateral hip replacement. Dr Chito Cochran. [facility] [place] of cataract surgery Bilateral Hx of colonoscopy Social History Smoking Status: Unknown if ever smoked Do You Dip or Chew Tobacco: No Hx Alcohol Use: No Hx Substance Use: No substance use type: does not use Physical Exam Vital Signs Last Vital Signs Temp 37.0 C 10/02/24 09:32 Pulse 83 10/02/24 11:57 Resp 32 H 10/02/24 11:57 BP 85/61 L 10/02/24 12:00 Pulse Ox 95 10/02/24 11:57 O2 Del Method Nasal Cannula 10/02/24 11:57 O2 Flow Rate 6 10/02/24 11:57 Testing Laboratory Results 10/02/24 09:53 10/02/24 09:53 PT 24.0 Seconds (9.0-12.0) H 10/02/24 09:53 INR 2.4 (0.9-1.1) H 10/02/24 09:53 APTT 34 Seconds (21-31) H 10/02/24 09:53 Urine Color Dark Yellow 10/02/24 10:11 Urine Appearance Cloudy (Clear) A 10/02/24 10:11 Urine pH 5.5 (4.5-7.5) 10/02/24 10:11 Ur Specific [place] 1.015 (1.000-1.030) 10/02/24 10:11 Urine Protein 2+ (Negative) H 10/02/24 10:11 Urine Glucose (UA) Negative (Negative) 10/02/24 10:11 Urine Ketones Negative (Negative) 10/02/24 10:11 Urine Nitrite Positive (Negative) A 10/02/24 10:11 Ur Leukocyte Esterase 2+ (Negative) H 10/02/24 10:11 Urine WBC (Auto) >50 /hpf (0-5) H 10/02/24 10:11 Urine RBC (Auto) 6-10 /hpf (0-2) H 10/02/24 10:11 U Hyaline Cast (Auto) 11-20 /lpf (0-2) H 10/02/24 10:11 U Epithel Cells (Auto) 0-2 /hpf (0-2) 10/02/24 10:11 Urine Bacteria (Auto) 4+ (None Seen) H 10/02/24 10:11
[2024-10-02] MEDS ORDERED: PHARMACY GLYCEMIC MGMT CONSULT PRN (12:43)
[2024-10-02] MEDS ORDERED: GLUCOSE 40% GEL 15 GM TUBE PO PRN (12:43)
[2024-10-02] MEDS ORDERED: GLUCAGON FOR INJ 1 MG VIAL SQ PRN (12:43)
[2024-10-02] MEDS ORDERED: DEXTROSE 50% 50 ML SYRINGE IV PRN (12:43)
[2024-10-02] MEDS ORDERED: GLUCOSE 10 TAB/TUBE PO PRN (12:43)
--- NOTE | 2024-10-02 13:53 | Pharmacy Report ---
Pharmacy Glycemic Short Note 2 - Date of Service October 02, 2024 - Glycemic Short BSG Results (Last 24 hours): 10/02/24 09:53 Glucose 110 H OUTPATIENT ANTIDIABETIC REGIMEN: * Metformin XR 1000 mg PO daily HbA1c: * Pending (most recent was 5.7% in April 2024) ASSESSMENT: * 69 yo F admitted on 10/02/24 secondary to urosepsis. Pharmacy has been consulted to assist with inpatient glycemic management. Patient is a Type 2 diabetic as an outpatient. Please refer to outpatient regimen and most recent HbA1c above. * BSG upon presentation was 110 mg/dL. Patient did take metformin this AM according to med rec. Currently received Cefepime for UTI. Requiring norepinephrine for BP support at this time. Patient is NPO with plan to go to OR for cystoscopy this afternoon. * Will hold on basal insulin at this time. Want to target a BSG of 110-140 mg/dL with ultimate goal of maintaining BSGs below 180 mg/dL. Concern for poor insulin absorption subcutaneously given pressors. Will start Novolog q6 for NPO status based on weight/stress of 2-3. PLAN FOR INPATIENT GLYCEMIC CONTROL: * Hold outpatient oral diabetes medications * Basal insulin * Holding * Bolus insulin * NovoLog per scale ACHS or Q6hrs while NPO * Goal Range: Low 110 mg/dL - High 140 mg/dL * Correction Factor: 20 mg/dL/unit * Nutritional / Prandial insulin per carb ratio of 1 unit per 7 grams CHO consumed
[2024-10-02] MEDS ORDERED: STAT IV Infusion **Titration per Protocol STA (14:15)
[2024-10-02] MEDS ORDERED: MIDAZOLAM HCL 1 MG/ML 2ML VIAL ONE (14:21)
--- NOTE | 2024-10-02 14:23 | Critical Care Consultation ---
Date of Consultation October 02, 2024 Assessment & Plan (1) Acute renal failure: (2) Septic shock: (3) Hydronephrosis of left kidney: (4) Hypertension: (5) Malignant neoplasm of upper-outer quadrant of right breast in female, estrogen receptor positive: (6) S/P TAVR (transcatheter aortic valve replacement): (7) Diabetes mellitus, type II: (8) GERD (gastroesophageal reflux disease): (9) High anion gap metabolic acidosis: (10) History of DVT (deep vein thrombosis): Plan Reason Critically Ill: 69-year-old female present to the hospital with complaints of weakness and abdominal pain. Was found to be in septic shock with left-sided hydronephrosis and nephrolithiasis. Past medical history: Pulmonary emboli on warfarin, hypertension, diabetes, TAVR Neuro - [facility] ICU: Negative Cardiac - 2D echo 09/23/2023: EF 60-65%, RV normal in size and function, mild MR, mild TR, grade 1 diastolic dysfunction -- Septic shock Source is urinary Continue with vasopressor support to keep 65 --Elevated troponin Likely type II MD Continue to trend EKG 10/02/2024, 9:44 AM: Sinus tachycardia, right bundle branch block, no ST-T wave changes appreciated --S/p TAVR May 2023 --History of hypertension and dyslipidemia On amlodipine 5, benazepril 20, atorvastatin 80 at home Respiratory - -- Acute hypoxic respiratory failure Multifactorial VQ mismatch from patient unable to take deep breaths from abdominal pain BNP 216 Continue with O2 supplementation to keep oxygen saturation between 90-92% --History of pulmonary emboli and DVT On warfarin -- Pulmonary nodule Right lower lobe 5 mm Unchanged 03/2008 Does not need to be followed up GI - --Transaminitis with mild bilirubinemia Alk phos also mildly elevated with chronic elevation -- Abdominal pain Secondary to nephrolithiasis RENAL/LYTES - -- SOFÍA Follow-up urine lites Monitor BUN/creatinine Avoid nephrotoxic medications Strict ins and outs -- HAGMA Delta-delta: Less than 1, gap plus nongap Gap likely from lactic acidosis Monitor - -- History of nephrolithiasis With acute left-sided hydronephrosis Urology on board ENDO - -- Diabetes type 2 ICU hypoglycemia protocol HEME - --History of right-sided breast cancer Diagnosed in 2020 s/p lumpectomy and radiation On letrozole -- Monitor H&H ID - -- Septic shock Source is urinary Continue with broad-spectrum antibiotic Follow-up blood and urine culture --Prophylaxis VTE: Warfarin GI: Pepcid Lines: Right IJ Diet: N.p.o. Plan: Strict ins and outs Patient seems to be dehydrated as well as in shock Her baseline hemoglobin is around 10 but she came in with hemoglobin of 13.3, she got 1.5 L in the ED. Will give another 1 L of Plasma-Lyte Patient is supposed to go to the OR later today Follow-up urine lites I have personally spent 62 minutes of critical care time in the direct management of this patient. This is a life/limb threatening event. This includes time spent evaluating patient, direct bedside care, chart review, placing orders, interpretation of diagnostic studies, discussion with consultants, patient, and family members, as well as other required patient management activities. This time is exclusive of all separately billable procedures, and teaching time and separate from and in addition to any other critical care service time. History of Present Illness Attending Physician: Simeon Lopes MD History of Present Illness 69-year-old female present to the hospital with complaints of weakness and abdominal pain. Was found to be in septic shock with left-sided hydronephrosis and nephrolithiasis. Past medical history: Pulmonary emboli on warfarin, hypertension, diabetes, TAVR At the time of examination in the ICU Patient was on 0.2 of Levophed, she had gotten total 1.5 L of IV fluid in the ER A liter of bolus was given to the patient and central line was placed. Her heart rate was in the high 100s to low 110s. MAP was in the mid 70s with systolic in the low to mid 90s. She denied any shortness of breath She was saturating 93-94% on 5 L nasal cannula. Stated that has been having abdominal pain for the last 3-4 days progressively getting worse. No nausea or vomiting Complains of generalized lethargy No unusual headache or blurry vision Social history: Lifetime non-smoker, no alcohol, denies any illicit drug use. Allergies Allergy/AdvReac Type Severity Reaction Status Date / Time dichloralphenazone AdvReac RASH Verified 10/02/24 12:22 isometheptene AdvReac RASH Verified 10/02/24 12:22 Home Medications Medication Instructions Recorded Confirmed Type acetaminophen 500 mg tablet 1,000 mg PO Q8 09/22/23 10/02/24 History (Tylenol Extra Strength) amitriptyline 75 mg tablet 75 mg PO HS 09/22/23 10/02/24 History amoxicillin 500 mg capsule 2,000 mg PO UD 09/22/23 10/02/24 History atorvastatin 80 mg tablet 80 mg PO HS 09/22/23 10/02/24 History cyanocobalamin (vitamin B-12) 1,000 mcg PO QAM 09/22/23 10/02/24 History 1,000 mcg tablet cyclobenzaprine 10 mg tablet 10 mg PO TID PRN Muscle Spasm 09/22/23 10/02/24 History famotidine 20 mg tablet 20 mg PO QAM 09/22/23 10/02/24 History letrozole 2.5 mg tablet 2.5 mg PO QAM 09/22/23 10/02/24 History metformin 500 mg tablet,extended 500 mg PO BID 09/22/23 10/02/24 History release 24 hr nadolol 20 mg tablet 20 mg PO HS 09/22/23 10/02/24 History riboflavin (vitamin B2) 100 mg 200 mg PO Q12 09/22/23 10/02/24 History tablet amlodipine 5 mg tablet 5 mg PO DAILY 08/19/24 10/02/24 History benazepril 20 mg tablet 20 mg PO DAILY 08/19/24 10/02/24 History ezetimibe 10 mg tablet 10 mg PO DAILY 08/19/24 10/02/24 History ferrous sulfate 325 mg (65 mg 325 mg PO DAILY 08/19/24 10/02/24 History iron) tablet (Feosol) iyrwlwnu-jou- 250 mg-dha 90 1 cap PO DAILY 08/19/24 10/02/24 History mg-epa 160 su-hspy-ijkd-zeax capsule (Ocuvite Adult 50 Plus) triamcinolone acetonide 0.1 % 1 applic topical DAILY PRN flare 08/19/24 10/02/24 History topical cream warfarin 3 mg tablet 1.5 mg PO 5XWK 10/02/24 10/02/24 History warfarin 3 mg tablet 3 mg PO 2XWK 10/02/24 10/02/24 History Patient History Medical History CKD (chronic kidney disease), stage III Malignant neoplasm of upper-outer quadrant of right breast in female, estrogen receptor positive (06/30/20) TMJ (dislocation of temporomandibular joint) Arthritis Microscopic colitis Migraines Surgical History S/P TAVR (transcatheter aortic valve replacement) s/p TAVR 06/05/23. Dr Lyons. [facility] [place] of hip replacement 08/17/23: Bilateral hip replacement. Dr Chito Cochran. [facility] [place] History of cataract surgery Bilateral Hx of colonoscopy Family History Mother , 93yo Breast cancer Father , 69yo Lung cancer Dyslipidemia Hypertension Sister No problems noted. Sister Stroke Son No problems noted. Daughter No problems noted. Social History Smoking Status: Never smoker Second Hand Exposure: No; Do You Dip or Chew Tobacco: No; Hx Alcohol Use: No Hx Substance Use: No Preferred Language: Moroccan Communication Ability: Effective Visual Impairment: No Limitations Hearing Ability: Hard of Hearing Heel Slicker Required: No Beliefs That Will Affect Care: None marital status: Current Living Situation: Spouse and Family Current Living Situation Comment: and daughter current occupational status: retired current occupation: From [employer] Other Information That Helps Us Care for You: No Feels Safe at Home: Yes Safety Concerns: Feels Safe At This Time Diet: regular caffeine: No during the past year weight has: remained stable Assistive Devices: Cane Review of Systems 2 Review of Systems: All systems reviewed & are unremarkable except as noted in HPI & below Physical Exam 2 Physical Exam: Constitutional: No acute distress HEENT: EOMI, PERRLA Respiratory system: Decreased air entry bilaterally, no wheeze, rhonchi, mild crackles bilateral lower lobes CVS: S1-S2 positive, tachycardia Abdomen: Soft, diffuse abdominal tenderness, no rebound, nondistended, positive bowel sounds x4, obese Extremities: + 1 pulses bilaterally radialis/ dorsalis pedis, no cyanosis, no edema Neuro: Awake alert oriented x3 Psych: Normal mood and affect G/U: Positive Cruz Skin: no rashes, warm and dry Lymphatic: no cervical or axillary lymphadenopathy Results & Data Results & Data Vital Signs (Past 12 Hours) Vital Signs Temp Pulse Pulse Resp BP BP Pulse Ox 10/02/24 13:54 36.7 C 86 28 H 99/57 L 92 10/02/24 13:40 99/57 L 10/02/24 13:37 87/59 L 10/02/24 13:36 86 31 H 92 10/02/24 13:33 87 30 H 10/02/24 13:15 82 23 95 10/02/24 13:15 88/61 L 10/02/24 13:15 88/61 L 10/02/24 13:10 92/55 L 10/02/24 13:10 92/55 L 10/02/24 13:06 83 27 H 94 10/02/24 13:05 74/48 L 10/02/24 13:03 84 25 H 94 10/02/24 13:01 78/55 L 10/02/24 13:00 83 29 H 94 10/02/24 13:00 76/49 L 10/02/24 12:55 77/52 L 10/02/24 12:55 77/52 L 10/02/24 12:51 83 26 H 94 10/02/24 12:50 72/47 L 10/02/24 12:50 72/47 L 10/02/24 12:48 94 10/02/24 12:45 80/44 L 10/02/24 12:45 80/44 L 10/02/24 12:45 80/44 L 10/02/24 12:39 82 12 94 10/02/24 12:36 82 14 95 10/02/24 12:35 85/55 L 10/02/24 12:35 85/55 L 10/02/24 12:35 85/55 L 10/02/24 12:30 84/57 L 10/02/24 12:30 84/57 L 10/02/24 12:25 92/49 L 10/02/24 12:21 83 20 95 10/02/24 12:20 87/61 L 10/02/24 12:20 87/61 L 10/02/24 12:20 87/61 L 10/02/24 12:18 82 30 H 95 10/02/24 12:15 82 31 H 96 10/02/24 12:15 90/56 L 10/02/24 12:15 90/56 L 10/02/24 12:15 90/56 L 10/02/24 12:15 90/56 L 10/02/24 12:12 82 29 H 95 10/02/24 12:10 87/57 L 10/02/24 12:10 87/57 L 10/02/24 12:10 87/57 L 10/02/24 12:05 88/58 L 10/02/24 12:00 85/61 L 10/02/24 11:57 83 32 H 95 10/02/24 11:56 84/60 L 10/02/24 11:51 83 29 H 96 10/02/24 11:48 85 25 H 96 10/02/24 11:45 91/59 L 10/02/24 11:42 85 30 H 96 10/02/24 11:30 91/60 L 10/02/24 11:26 94/59 L 10/02/24 11:24 84 29 H 95 10/02/24 11:18 86 31 H 97 10/02/24 11:16 79/52 L 10/02/24 11:15 85 25 H 95 10/02/24 11:00 88 25 H 10/02/24 10:19 88 10/02/24 09:32 95 10/02/24 09:32 37.0 C 93 H 14 90/60 L 85 L O2 Del Method O2 Flow Rate 10/02/24 13:54 Nasal Cannula 5 10/02/24 13:40 10/02/24 13:37 10/02/24 13:36 10/02/24 13:33 10/02/24 13:15 10/02/24 13:15 10/02/24 13:15 10/02/24 13:10 10/02/24 13:10 10/02/24 13:06 10/02/24 13:05 10/02/24 13:03 10/02/24 13:01 10/02/24 13:00 10/02/24 13:00 10/02/24 12:55 10/02/24 12:55 10/02/24 12:51 10/02/24 12:50 10/02/24 12:50 10/02/24 12:48 10/02/24 12:45 10/02/24 12:45 10/02/24 12:45 10/02/24 12:39 10/02/24 12:36 10/02/24 12:35 10/02/24 12:35 10/02/24 12:35 10/02/24 12:30 10/02/24 12:30 10/02/24 12:25 10/02/24 12:21 10/02/24 12:20 10/02/24 12:20 10/02/24 12:20 10/02/24 12:18 10/02/24 12:15 10/02/24 12:15 10/02/24 12:15 10/02/24 12:15 10/02/24 12:15 10/02/24 12:12 10/02/24 12:10 10/02/24 12:10 10/02/24 12:10 10/02/24 12:05 10/02/24 12:00 10/02/24 11:57 Nasal Cannula 6 10/02/24 11:56 10/02/24 11:51 Nasal Cannula 6 10/02/24 11:48 Nasal Cannula 6 10/02/24 11:45 10/02/24 11:42 Nasal Cannula 6 10/02/24 11:30 10/02/24 11:26 10/02/24 11:24 Nasal Cannula 6 10/02/24 11:18 Nasal Cannula 6 10/02/24 11:16 10/02/24 11:15 Nasal Cannula 6 10/02/24 11:00 10/02/24 10:19 10/02/24 09:32 Nasal Cannula 4 10/02/24 09:32 Room Air Laboratory Results 10/02/24 09:53 10/02/24 09:53 Coding Level of Care Code 25181 CRITICAL CARE 1ST 30-74M Diagnoses Acute renal failure N17.9 Septic shock A41.9; R65.21 Hydronephrosis of left kidney N13.30 Hypertension I10 Malignant neoplasm of upper-outer quadrant of right breast in female, estrogen receptor positive C50.411; Z17.0 S/P TAVR (transcatheter aortic valve replacement) Z95.2 Diabetes mellitus, type II E11.9 GERD (gastroesophageal reflux disease) K21.9 High anion gap metabolic acidosis E87.29 History of DVT (deep vein thrombosis) Z86.718
--- NOTE | 2024-10-02 14:25 | Procedure Note ---
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 Anesthesia: 1% lidocaine without epinephrine local. Procedure: Consent was verified and timeout performed. Appropriate imaging studies were reviewed prior to the procedure. Under aseptic and sterile condition, right IJ vein was accessed under direct ultrasound guidance. Guidewire was confirmed to be within the lumen of vein with the help of ultrasound. Catheter was introduced via Seldinger technique. Guide a wire was removed. Good non-pulsatile blood flow was appreciated from all the ports. The catheter was placed at cm and sutured in place. BioPatch was applied to the catheter and a sterile Tegaderm dressing was applied over the catheter with careful attention to sterility. Lung sliding was appreciated post procedure with the help ultrasound. Chest x-ray to follow Patient tolerated the procedure well. Blood loss: Less than 1 cc Complications: None [facility] [place] Procedure Codes (Charges) Tubes, Drains, and Vasc Access Procedure 1: Tubes, Drains, and Vasc Access: [id number] Place catheter in vein superior or inferior vena cava Procedure 2: Tubes, Drains, and Vasc Access: [id number] Ultrasound Guidance For Vascular Coding CPT Codes Tubes, Drains, and Vasc Access - Tubes, Drains, and Vasc Access: [id number] Place catheter in vein superior or inferior vena cava ([id number]) Tubes, Drains, and Vasc Access - Tubes, Drains, and Vasc Access: [id number] Ultrasound Guidance For Vascular ([id number]) Additional Codes Date of Service ([facility].SURGERY)
[2024-10-02] MEDS: VASOPRESSIN 20 UNITS in SODIUM CHLORIDE 0.9% 100 ML IV SCH (14:29)
--- NOTE | 2024-10-02 14:36 | XRay Report ---
XR chest 1V portable CLINICAL HISTORY: central line placement COMPARISON STUDY: 10/02/2024 FINDINGS: Right central line tip is just above the cavoatrial junction. There is no pneumothorax. No consolidation or pleural effusion. IMPRESSION: No pneumothorax. ACT 112: Negative or not required by law. Electronically signed by: Jesús Doss M.D. 10/02/2024 2:35 PM
--- NOTE | 2024-10-02 15:19 | Operative Report ---
PG Post Operative Report Pre & Post Diagnosis Operation Date: 10/02/24 15:15 Pre-Op Diagnosis: urinary tract infection, urolithiasis Post-Op Diagnosis: urinary tract infection, urolithiasis I identified the patient and participated in the time-out.: Yes Procedure Operation Date: 10/02/24 15:15 Actual Procedures Cystoscopy, with Left Aspiration, Retrograde pyelogram, and Left Ureteral Stent Placement(Not Applicable) - Asad Mitchell, Surgeon Asad Mitchell, II, DO Computer Aided Design Technician None Estimated Blood Loss 1 Findings Consistent with Post-Op Diagnosis Stent placed in good position. Severely purulent urine draining from the left kidney Specimens Urine for culture Drains 6 Fr Multilength 18 Belgian Cruz catheter Anesthesia Type MAC Complications none Disposition Disposition: Recovery Room Indications Patient with obstruction. Risks and benefits discussed at length. Description of Procedure Patient was consented and brought back to the operating room. Patient was placed under anesthesia in the supine position and moved to the dorsal lithotomy position. Patient was prepped and draped in the regular sterile fashion. A time out was completed. A 30degree Cystoscope was placed into the bladder and the entire bladder was examined. The UO's were identified. The UO was cannulized with a catheter and a wire was attempted to be passed. There was some manipulation needed to get by what was likely the stone in the mid/distal ureter. The wire was able to bypassed and immediately a large amount of debris was noted to be draining from the ureter. Over the wire the open- ended catheter was advanced to the renal pelvis and urine was able to be aspirated which was found to be severely purulent and sent for culture. A retrograde pyelogram was completed. Significant hydronephrosis was noted. A wire was then replaced. With the wire in place, a 6 Fr Double J stent was placed. It was confirmed with fluoroscopy. With the stent in place, the bladder was emptied. The scope was removed. A 18 Belgian catheter was placed to facilitate drainage. The patient was cleaned, aroused from anesthesia, and transferred to the pacu in stable condition having tolerated the procedure well with no complications. I was present and participated in all aspects of the procedure. Patient is critically ill with sepsis possible septic shock. Patient will be continued to be monitored in the ICU with critical management. Will maintain stent until able to discuss options for stone treatment. Likely follow-up in the next 2 to 4 weeks to move forward with possible stone treatment after completion of treatment of infection I attest to the content of the Intraoperative Record and any orders documented therein. Any exceptions are noted below.
[2024-10-02] MEDS: STAT IV Infusion **Titration per Protocol STA (15:29)
--- NOTE | 2024-10-02 15:35 | Fluoroscopy Report ---
FL retrograde includes kub CLINICAL HISTORY: LT SIDE RETROGRADE COMPARISON STUDY: None FLUOROSCOPY TIME: 5 seconds FLUOROSCOPY IMAGES: 3 EXPOSURE DOSE: 2 mGy FINDINGS: Fluoroscopy was provided for urologic procedure. IMPRESSION: Intraoperative fluoroscopy. ACT 112: Negative or not required by law. Electronically signed by: Jesús Doss M.D. 10/02/2024 3:34 PM
[2024-10-02] MEDS ORDERED: Nursing to Pharmacy Communication SCH ×2 (15:45→16:00)
--- NOTE | 2024-10-02 16:15 | Anesthesiology Progress Note ---
Date of Service October 02, 2024 Anesthesia Post Procedure Vital Signs Vital Signs: Temp Pulse Pulse Resp BP BP Pulse Ox 10/02/24 15:51 102 H 17 97 10/02/24 15:50 98/67 L 10/02/24 15:48 103 H 16 98 10/02/24 15:45 94/70 L 10/02/24 15:35 109/73 10/02/24 15:32 105/69 10/02/24 15:32 105/69 10/02/24 15:27 107 H 17 95 10/02/24 15:26 104/68 10/02/24 15:26 104/68 10/02/24 15:25 36.7 C 10/02/24 15:24 115 H 18 95 10/02/24 15:21 112 H 18 94 10/02/24 15:20 80/64 L 10/02/24 15:20 80/64 L 10/02/24 15:20 80/64 L 10/02/24 13:54 36.7 C 86 28 H 99/57 L 92 10/02/24 13:40 99/57 L 10/02/24 13:37 87/59 L 10/02/24 13:36 86 31 H 92 10/02/24 13:33 87 30 H 10/02/24 13:15 82 23 95 10/02/24 13:15 88/61 L 10/02/24 13:15 88/61 L 10/02/24 13:10 92/55 L 10/02/24 13:10 92/55 L 10/02/24 13:06 83 27 H 94 10/02/24 13:05 74/48 L 10/02/24 13:03 84 25 H 94 10/02/24 13:01 78/55 L 10/02/24 13:00 83 29 H 94 10/02/24 13:00 76/49 L 10/02/24 12:55 77/52 L 10/02/24 12:55 77/52 L 10/02/24 12:51 83 26 H 94 10/02/24 12:50 72/47 L 10/02/24 12:50 72/47 L 10/02/24 12:48 94 10/02/24 12:45 80/44 L 10/02/24 12:45 80/44 L 10/02/24 12:45 80/44 L 10/02/24 12:39 82 12 94 10/02/24 12:36 82 14 95 10/02/24 12:35 85/55 L 10/02/24 12:35 85/55 L 10/02/24 12:35 85/55 L 10/02/24 12:30 84/57 L 10/02/24 12:30 84/57 L 10/02/24 12:25 92/49 L 10/02/24 12:21 83 20 95 10/02/24 12:20 87/61 L 10/02/24 12:20 87/61 L 10/02/24 12:20 87/61 L 10/02/24 12:18 82 30 H 95 10/02/24 12:15 82 31 H 96 10/02/24 12:15 90/56 L 10/02/24 12:15 90/56 L 10/02/24 12:15 90/56 L 10/02/24 12:15 90/56 L 10/02/24 12:12 82 29 H 95 10/02/24 12:10 87/57 L 10/02/24 12:10 87/57 L 10/02/24 12:10 87/57 L 10/02/24 12:05 88/58 L 10/02/24 12:00 85/61 L 10/02/24 11:57 83 32 H 95 10/02/24 11:56 84/60 L 10/02/24 11:51 83 29 H 96 10/02/24 11:48 85 25 H 96 10/02/24 11:45 91/59 L 10/02/24 11:42 85 30 H 96 10/02/24 11:30 91/60 L 10/02/24 11:26 94/59 L 10/02/24 11:24 84 29 H 95 10/02/24 11:18 86 31 H 97 10/02/24 11:16 79/52 L 10/02/24 11:15 85 25 H 95 10/02/24 11:00 88 25 H 10/02/24 10:19 88 10/02/24 09:32 95 10/02/24 09:32 37.0 C 93 H 14 90/60 L 85 L O2 Del Method O2 Flow Rate 10/02/24 15:51 Oxymask 10 10/02/24 15:50 10/02/24 15:48 Oxymask 12 10/02/24 15:45 Oxymask 10/02/24 15:35 10/02/24 15:32 10/02/24 15:32 10/02/24 15:27 Oxymask 14 10/02/24 15:26 10/02/24 15:26 10/02/24 15:25 10/02/24 15:24 Oxymask 10/02/24 15:21 Oxymask 14 10/02/24 15:20 10/02/24 15:20 10/02/24 15:20 10/02/24 13:54 Nasal Cannula 5 10/02/24 13:40 10/02/24 13:37 10/02/24 13:36 10/02/24 13:33 10/02/24 13:15 10/02/24 13:15 10/02/24 13:15 10/02/24 13:10 10/02/24 13:10 10/02/24 13:06 10/02/24 13:05 10/02/24 13:03 10/02/24 13:01 10/02/24 13:00 10/02/24 13:00 10/02/24 12:55 10/02/24 12:55 10/02/24 12:51 10/02/24 12:50 10/02/24 12:50 10/02/24 12:48 10/02/24 12:45 10/02/24 12:45 10/02/24 12:45 10/02/24 12:39 10/02/24 12:36 10/02/24 12:35 10/02/24 12:35 10/02/24 12:35 10/02/24 12:30 10/02/24 12:30 10/02/24 12:25 10/02/24 12:21 10/02/24 12:20 10/02/24 12:20 10/02/24 12:20 10/02/24 12:18 10/02/24 12:15 10/02/24 12:15 10/02/24 12:15 10/02/24 12:15 10/02/24 12:15 10/02/24 12:12 10/02/24 12:10 10/02/24 12:10 10/02/24 12:10 10/02/24 12:05 10/02/24 12:00 10/02/24 11:57 Nasal Cannula 6 10/02/24 11:56 10/02/24 11:51 Nasal Cannula 6 10/02/24 11:48 Nasal Cannula 6 10/02/24 11:45 10/02/24 11:42 Nasal Cannula 6 10/02/24 11:30 10/02/24 11:26 10/02/24 11:24 Nasal Cannula 6 10/02/24 11:18 Nasal Cannula 6 10/02/24 11:16 10/02/24 11:15 Nasal Cannula 6 10/02/24 11:00 10/02/24 10:19 10/02/24 09:32 Nasal Cannula 4 10/02/24 09:32 Room Air Transfer of Care Handoff Completed per policy Notes Patient Amnestic to Procedure: Yes Nausea / Vomiting: adequately controlled Anesthetic Complications: no major complications apparent and see Notes below Notes: Patient is septic and critical, hypotensive and being administered vasoactive agents
[2024-10-02] MEDS: INSULIN ASPART PER UNIT CHARGE SC SCH (16:23)
[2024-10-02] MEDS: LACTATED RINGER'S 500 ML IV ONE (23:54)
[2024-10-03 04:58] LABS: Hematocrit (blood only) 35.1 % (37.0-47.0); Hemoglobin 11.7 g/dl (12.0-16.0); Mean Corpuscular Hemoglobin 30.5 pg (25.0-34.0); Mean Corpuscular Volume 91.4 fL (80.0-100.0); Platelet Count 236 K/uL (130-400); RDW Standard Deviation 47.7 fL (36.4-46.3); Red Blood Count 3.84 M/uL (4.20-5.40); White Blood Count 46.15 K/ul (4.8-10.8)
[2024-10-03 04:59] LABS: Anion Gap 13.0 (3-11); Blood Urea Nitrogen 42.0 mg/dl (6-23); Calcium 7.6 mg/dl (8.6-10.3); Carbon Dioxide 15.0 mmol/L (21-32); Chloride 105.0 mmol/L (98-107); Creatinine Clr Calc Pharmacy 23.1 ml/min; Glucose 123.0 mg/dl (70-99(Fasting)); Magnesium 1.7 mg/dl (1.7-2.4); Potassium 4.1 mmol/L (3.5-5.1); Sodium 133.0 mmol/L (136-145)
[2024-10-03 05:28] LABS: Dohle Bodies 1+; Immature Granulocytes # (auto) 2.26 K/uL (0.01-0.20); Immature Granulocytes % (auto) 4.9 %; Polychromasia 1+; Toxic Vacuolation 1+
[2024-10-03 07:02] LABS: Hemoglobin A1C 6.1 % (4.5-5.6)
--- NOTE | 2024-10-03 07:43 | Critical Care Progress Note ---
Date of Service October 03, 2024 Assessment & Plan (1) Acute renal failure: (2) Septic shock: (3) Hydronephrosis of left kidney: (4) Hypertension: (5) Malignant neoplasm of upper-outer quadrant of right breast in female, estrogen receptor positive: (6) S/P TAVR (transcatheter aortic valve replacement): (7) Diabetes mellitus, type II: (8) GERD (gastroesophageal reflux disease): (9) High anion gap metabolic acidosis: (10) History of DVT (deep vein thrombosis): Plan Reason Critically Ill: 69-year-old female present to the hospital with complaints of weakness and abdominal pain. Was found to be in septic shock with left-sided hydronephrosis and nephrolithiasis. Past medical history: Pulmonary emboli on warfarin, hypertension, diabetes, TAVR Neuro - [facility] ICU: Negative Cardiac - 2D echo 09/23/2023: EF 60-65%, RV normal in size and function, mild MR, mild TR, grade 1 diastolic dysfunction -- Septic shock Source is urinary Continue with vasopressor support to keep 65 --Elevated troponin Likely type II ID Continue to trend EKG 10/02/2024, 9:44 AM: Sinus tachycardia, right bundle branch block, no ST-T wave changes appreciated --S/p TAVR May 2023 --History of hypertension and dyslipidemia On amlodipine 5, benazepril 20, atorvastatin 80 at home Respiratory - -- Acute hypoxic respiratory failure Multifactorial VQ mismatch from patient unable to take deep breaths from abdominal pain BNP 216 Continue with O2 supplementation to keep oxygen saturation between 90-92% --History of pulmonary emboli and DVT On warfarin -- Pulmonary nodule Right lower lobe 5 mm Unchanged 03/2008 Does not need to be followed up GI - --Transaminitis with mild bilirubinemia Alk phos also mildly elevated with chronic elevation -- Abdominal pain Secondary to nephrolithiasis RENAL/LYTES - -- SOFÍA --> improving Monitor BUN/creatinine Avoid nephrotoxic medications Strict ins and outs -- HAGMA Delta-delta: Less than 1, gap plus nongap Gap likely from lactic acidosis Monitor - -- History of nephrolithiasis With acute left-sided hydronephrosis Urology on board ENDO - -- Diabetes type 2 ICU hypoglycemia protocol HEME - --History of right-sided breast cancer Diagnosed in 2020 s/p lumpectomy and radiation On letrozole -- Monitor H&H ID - -- Septic shock Source is urinary Continue with broad-spectrum antibiotic Follow-up blood and urine culture --Prophylaxis VTE: Warfarin GI: Famotidine Lines: Right IJ Diet: N.p.o. Plan: In/out: +4.4 L, urine output 540 mL Will start the patient on Plasma-Lyte 60 mL an hour given the decreased urine output Creatinine is improving Will also give an amp of bicarb Magnesium being replaced INR today supratherapeutic. Given there is no signs of bleeding, no need to correct it Try to titrate off vasopressors while keeping the MAP greater than 65 I have personally spent 38 minutes of critical care time in the direct management of this patient. This is a life/limb threatening event. This includes time spent evaluating patient, direct bedside care, chart review, placing orders, interpretation of diagnostic studies, discussion with consultants, patient, and family members, as well as other required patient management activities. This time is exclusive of all separately billable procedures, and teaching time and separate from and in addition to any other critical care service time. Admission and Anticipated Discharge Date Admission Date: October 02, 2024 Subjective Patient seen and examined at bedside. No acute distress, no adverse events overnight She was still lethargic but says that she is feeling better compared to yesterday Her MAP is in the low 90s on 0.14 of Levophed as well as 0.04 of vasopressin I turned down the Levophed to 0.1 Denies any nausea vomiting Abdominal pain has improved Has been afebrile Review of Systems 2 Review of Systems: All systems reviewed & are unremarkable except as noted in Subjective Physical Exam 2 Physical Exam: Constitutional: No acute distress HEENT: EOMI, PERRLA Respiratory system: Decreased air entry bilaterally, no wheeze, no rhonchi, p ositive crackles bilateral lower lobes CVS: S1-S2 positive, tachycardia Abdomen: Soft, nontender, nondistended, positive bowel sounds x4, obese Extremities: + 1 pulses bilaterally radialis/ dorsalis pedis, no cyanosis, no edema Neuro: Awake alert oriented x3 Psych: Normal mood and affect G/U: Positive Cruz Skin: no rashes, warm and dry Lymphatic: no cervical or axillary lymphadenopathy Results & Data Results & Data Vital Signs (Past 12 Hours) Vital Signs Temp Pulse Pulse Resp BP BP Pulse Ox 10/03/24 06:00 85 10 L 94 10/03/24 06:00 100/64 10/03/24 06:00 100/64 10/03/24 05:51 91/60 L 10/03/24 05:42 89 13 93 10/03/24 05:31 95/49 L 10/03/24 05:31 95/49 L 10/03/24 05:24 89 14 93 10/03/24 05:03 90 12 93 10/03/24 05:00 96/53 L 10/03/24 05:00 96/53 L 10/03/24 04:54 81/49 L 10/03/24 04:54 81/49 L 10/03/24 04:51 90 13 92 10/03/24 04:45 87/55 L 10/03/24 04:42 90 14 92 10/03/24 04:30 99/62 L 10/03/24 04:30 99/62 L 10/03/24 04:15 93/62 L 10/03/24 04:00 91 H 18 91 10/03/24 03:45 108/60 10/03/24 03:45 108/60 10/03/24 03:39 91 H 12 92 10/03/24 03:30 113/73 10/03/24 03:18 92 H 17 91 10/03/24 03:15 92 H 16 92 10/03/24 03:15 104/59 L 10/03/24 03:15 104/59 L 10/03/24 03:00 108/63 10/03/24 03:00 108/63 10/03/24 03:00 93 H 19 91 10/03/24 02:45 110/63 10/03/24 02:45 93 H 18 92 10/03/24 02:30 104/68 10/03/24 02:30 104/68 10/03/24 02:30 92 H 15 91 10/03/24 02:15 100/57 L 10/03/24 02:15 100/57 L 10/03/24 02:15 100/57 L 10/03/24 02:09 93 H 17 91 10/03/24 02:06 93 H 18 91 10/03/24 02:00 91/69 L 10/03/24 02:00 91/69 L 10/03/24 01:57 94 H 34 H 90 10/03/24 01:45 115/58 L 10/03/24 01:45 115/58 L 10/03/24 01:42 93 H 16 91 10/03/24 01:15 109/64 10/03/24 01:15 109/64 10/03/24 01:15 109/64 10/03/24 00:00 36.8 C 97 H 20 102/62 93 10/03/24 00:00 96 H 10/02/24 23:00 100 H 19 113/64 95 10/02/24 22:00 102 H 16 94/65 L 94 10/02/24 21:00 102 H 21 93/63 L 94 10/02/24 20:32 36.5 C 10/02/24 20:00 103 H 20 124/68 95 O2 Del Method O2 Flow Rate 10/03/24 06:00 6 10/03/24 06:00 10/03/24 06:00 10/03/24 05:51 10/03/24 05:42 6 10/03/24 05:31 10/03/24 05:31 10/03/24 05:24 10/03/24 05:03 6 10/03/24 05:00 10/03/24 05:00 10/03/24 04:54 10/03/24 04:54 10/03/24 04:51 6 10/03/24 04:45 10/03/24 04:42 6 10/03/24 04:30 10/03/24 04:30 10/03/24 04:15 10/03/24 04:00 10/03/24 03:45 10/03/24 03:45 10/03/24 03:39 6 10/03/24 03:30 10/03/24 03:18 6 10/03/24 03:15 6 10/03/24 03:15 10/03/24 03:15 10/03/24 03:00 10/03/24 03:00 10/03/24 03:00 6 10/03/24 02:45 10/03/24 02:45 6 10/03/24 02:30 10/03/24 02:30 10/03/24 02:30 6 10/03/24 02:15 10/03/24 02:15 10/03/24 02:15 10/03/24 02:09 10/03/24 02:06 6 10/03/24 02:00 10/03/24 02:00 10/03/24 01:57 6 10/03/24 01:45 10/03/24 01:45 10/03/24 01:42 6 10/03/24 01:15 10/03/24 01:15 10/03/24 01:15 6 10/03/24 00:00 Oxymask 6 10/03/24 00:00 10/02/24 23:00 Oxymask 6 10/02/24 22:00 Oxymask 6 10/02/24 21:00 Oxymask 6 10/02/24 20:32 10/02/24 20:00 Oxymask 6 Laboratory Results 10/03/24 04:01 10/03/24 04:01 Coding Level of Care Code 39687 CRITICAL CARE 1ST 30-74M Diagnoses Acute renal failure N17.9 Septic shock A41.9; R65.21 Hydronephrosis of left kidney N13.30 Hypertension I10 Malignant neoplasm of upper-outer quadrant of right breast in female, estrogen receptor positive C50.411; Z17.0 S/P TAVR (transcatheter aortic valve replacement) Z95.2 Diabetes mellitus, type II E11.9 GERD (gastroesophageal reflux disease) K21.9 High anion gap metabolic acidosis E87.29 History of DVT (deep vein thrombosis) Z86.718
[2024-10-03] MEDS: MAGNESIUM SULFATE / D5W 1 GM/100 ML BAG IV SCH (08:34)
[2024-10-03] MEDS: SODIUM BICARB 8.4% INJ 50 MEQ/50 ML SYR IV STA (08:34)
[2024-10-03] MEDS: PLASMA-LYTE A 1,000 ML IV SCH (08:35)
--- NOTE | 2024-10-03 08:43 | Urology Progress Note ---
Date of Service October 03, 2024 Assessment & Plan (1) Ureteral stone: (2) Hydronephrosis: (3) SOFÍA (acute kidney injury): (4) Acute UTI: (5) Sepsis: Plan 69-year-old female s/p cystoscopy left ureteral stent placement due to being in septic shock upon arrival to the ER on 10/02/2024 POD #1 Continues on pressors for hypotension support Tolerating the ureteral stent with minimal bother, no pain reported today at bedside. Labs reviewed -WBCs 46.15, hemoglobin 11.7, creatinine 2.29, glucose 123 Urine culture preliminary gram-negative bacilli, blood cultures still pending. Currently on cefepime. Cruz catheter in place, draining appropriately for maximal decompression. Continue supportive care and monitoring per primary/ICU team. Continue antibiotics as prescribed trend according to culture data. No plan for further urologic intervention during this admission. Will arrange outpatient follow-up with our service for definitive stone management after the infections has been treated. Urology will continue to follow along. Please reach out to our team for any urological questions or concerns. Case was discussed with Dr. Lilly Admission and Anticipated Discharge Date Admission Date: October 02, 2024 Supervising Physician Co-Signing Physician Notes I have discussed Ms Reyes' case with WILLIAM sOman and agree with the above documentation. -Pascual Lilly MD. Subjective Resting comfortably in bed No acute distress Awake and oriented but lethargic Denied fevers, chills, nausea, vomiting overnight Patient is currently n.p.o. Cruz is intact and draining appropriately Denies current pain-abdominal or left flank Review of Systems Constitutional: as per Subjective / HPI Genitourinary: as per Subjective / HPI Physical Exam Constitutional: + ill appearing Chronically and acutely ill-appearing, lethargic, pale Respiratory: able to speak in complete sentences and + tachypneic; does not use accessory muscles Musculoskeletal: Extremities: extremities normal to inspection Psychiatric: Orientation: alert and oriented x 3 Results & Data Vital Signs (Past 12 Hours) Vital Signs Temp Pulse Pulse Resp BP BP Pulse Ox 10/03/24 06:00 85 10 L 94 10/03/24 06:00 100/64 10/03/24 06:00 100/64 10/03/24 05:51 91/60 L 10/03/24 05:42 89 13 93 10/03/24 05:31 95/49 L 10/03/24 05:31 95/49 L 10/03/24 05:24 89 14 93 10/03/24 05:03 90 12 93 10/03/24 05:00 96/53 L 10/03/24 05:00 96/53 L 10/03/24 04:54 81/49 L 10/03/24 04:54 81/49 L 10/03/24 04:51 90 13 92 10/03/24 04:45 87/55 L 10/03/24 04:42 90 14 92 10/03/24 04:30 99/62 L 10/03/24 04:30 99/62 L 10/03/24 04:15 93/62 L 10/03/24 04:00 91 H 18 91 10/03/24 03:45 108/60 10/03/24 03:45 108/60 10/03/24 03:39 91 H 12 92 10/03/24 03:30 113/73 10/03/24 03:18 92 H 17 91 10/03/24 03:15 92 H 16 92 10/03/24 03:15 104/59 L 10/03/24 03:15 104/59 L 10/03/24 03:00 108/63 10/03/24 03:00 108/63 10/03/24 03:00 93 H 19 91 10/03/24 02:45 110/63 10/03/24 02:45 93 H 18 92 10/03/24 02:30 104/68 10/03/24 02:30 104/68 10/03/24 02:30 92 H 15 91 10/03/24 02:15 100/57 L 10/03/24 02:15 100/57 L 10/03/24 02:15 100/57 L 10/03/24 02:09 93 H 17 91 10/03/24 02:06 93 H 18 91 10/03/24 02:00 91/69 L 10/03/24 02:00 91/69 L 10/03/24 01:57 94 H 34 H 90 10/03/24 01:45 115/58 L 10/03/24 01:45 115/58 L 10/03/24 01:42 93 H 16 91 10/03/24 01:15 109/64 07/25/25 01:15 109/64 10/03/24 01:15 109/64 10/03/24 00:00 36.8 C 97 H 20 102/62 93 10/03/24 00:00 96 H 10/02/24 23:00 100 H 19 113/64 95 10/02/24 22:00 102 H 16 94/65 L 94 10/02/24 21:00 102 H 21 93/63 L 94 O2 Del Method O2 Flow Rate 10/03/24 06:00 6 10/03/24 06:00 10/03/24 06:00 10/03/24 05:51 10/03/24 05:42 6 10/03/24 05:31 10/03/24 05:31 10/03/24 05:24 10/03/24 05:03 6 10/03/24 05:00 10/03/24 05:00 10/03/24 04:54 10/03/24 04:54 10/03/24 04:51 6 10/03/24 04:45 10/03/24 04:42 6 10/03/24 04:30 10/03/24 04:30 10/03/24 04:15 10/03/24 04:00 6 10/03/24 03:45 10/03/24 03:45 10/03/24 03:39 6 10/03/24 03:30 10/03/24 03:18 6 10/03/24 03:15 6 10/03/24 03:15 10/03/24 03:15 10/03/24 03:00 10/03/24 03:00 10/03/24 03:00 10/03/24 02:45 10/03/24 02:45 6 10/03/24 02:30 10/03/24 02:30 10/03/24 02:30 6 10/03/24 02:15 10/03/24 02:15 10/03/24 02:15 10/03/24 02:09 10/03/24 02:06 6 10/03/24 02:00 10/03/24 02:00 10/03/24 01:57 6 10/03/24 01:45 10/03/24 01:45 10/03/24 01:42 6 10/03/24 01:15 10/03/24 01:15 10/03/24 01:15 6 10/03/24 00:00 Oxymask 6 10/03/24 00:00 10/02/24 23:00 Oxymask 6 10/02/24 22:00 Oxymask 6 10/02/24 21:00 Oxymask 6 PG Care Time/CCT Total # of Minutes Spent Total Time Spent with Patient: Total time spent is greater than 50% in coordination of care (as documented) at patient's floor/unit and/or counseling patient: Coding Level of Care Code 24498 SUB INP/OBS CARE 3/50MIN Diagnoses Ureteral stone N20.1 Hydronephrosis N13.2 Hydronephrosis type: with renal calculous obstruction SOFÍA (acute kidney injury) N17.9 Acute UTI N39.0 Sepsis A41.9; R65.21; N17.9 Acute renal failure type: unspecified Sepsis acute organ dysfunction status: with acute organ dysfunction Sepsis type: sepsis due to unspecified organism Severe sepsis acute organ dysfunction type: acute renal failure Severe sepsis shock status: with septic shock Comment Greater than 50 minutes precharting, time with patient, coordination of care (2) Hydronephrosis Hydronephrosis type: with renal calculous obstruction Qualified Code(s): N13.2 - Hydronephrosis with renal and ureteral calculous obstruction (5) Sepsis Acute renal failure type: unspecified Sepsis acute organ dysfunction status: with acute organ dysfunction Sepsis type: sepsis due to unspecified organism Severe sepsis acute organ dysfunction type: acute renal failure Severe sepsis shock status: with septic shock Qualified Code(s): A41.9 - Sepsis, unspecified organism; R65.21 - Severe sepsis with septic shock; N17.9 - Acute kidney failure, unspecified
[2024-10-03 08:52] LABS: INR 4.0 (0.9-1.1); Prothrombin Time 38.7 Seconds (9.0-12.0)
[2024-10-03] MEDS ORDERED: HEPARIN SOD 5,000 UNIT/0.5 ML VIAL SQ SCH (09:00)
[2024-10-03] MEDS ORDERED: FAMOTIDINE 20 MG TAB PO SCH (09:00)
[2024-10-03] MEDS: FAMOTIDINE 20MG IV PUSH 20 MG/5 ML SYR IV SCH (09:04)
[2024-10-03] MEDS: LETROZOLE 2.5 MG TAB PO SCH (09:09)
[2024-10-03] MEDS: FERROUS SULFATE 325 MG TAB PO SCH (09:09)
[2024-10-03] MEDS: CEFEPIME 1000MG 1,000 MG/10 ML SYR IV SCH (09:15)
--- NOTE | 2024-10-03 12:38 | Hospitalist Progress Note ---
Date of Service October 03, 2024 Assessment & Plan (1) Septic shock: (2) Left ureteral stone: (3) Acute renal failure: Plan: In summary, 69-year-old female with history of status post TAVR, diabetes type 2, hypertension, PE/DVT on Coumadin is admitted with abdominal pain and weakness x 4 days resulting in sepsis with shock secondary to urinary source.. SEPTIC SHOCK SECONDARY TO COMPLICATED URINARY TRACT INFECTION, POSSIBLE PYELONEPHRITIS UROLITHIASIS, LEFT she is hypotensive and in acute renal failure Initial lactic acid 4.6, repeat trending down 2.5 On Levophed wean as able History of Klebsiella UTI based on outpatient records Urine culture from PCP office 10/01/24: Pending Repeat urine culture obtained at the ER: Showing gram-negative bacilli/E. coli preliminarily Blood cultures obtained at the ER: No growth to date Continue IV cefepime for now MRSA swab negative Monitor volume status closely Urology service consulted S/P Cystoscopy, with Left Aspiration, Retrograde pyelogram, and Left Ureteral Stent Placement Continue care in the ICU, CCM consult ACUTE RESPIRATORY FAILURE WITH HYPOXIA Wean O2 as able BNP 200s CXR: mild CHF pattern 2D echo 09/23/2023: EF 60-65%, RV normal in size and function, mild MR, mild TR, grade 1 diastolic dysfunction ACUTE RENAL FAILURE SECONDARY TO SEPTIC SHOCK, POSSIBLE OBSTRUCTIVE UROPATHY, PRE-RENAL ETIOLOGY FROM POOR ORAL INTAKE baseline crea 1.2-->2.5-->2.29 management of septic shock, urolithiasis as per above On Plasma-Lyte IV fluids currently HISTORY OF ACUTE PE/DVT INR 2.4-->4.0 Coumadin on hold for now. On SC heparin HISTORY OF AORTIC STENOSIS, S/P TAVR MAY 2023 DM 2 Insulin sliding scale Pharmacy glycemic consult HTN currently hypotensive on pressors Cont hold BP meds Elevated troponins Demand ischemia Trop 81.9-->55.8 EKG reviewed HISTORY OF BILATERAL HIP REPLACEMENT, AUGUST 2023 HISTORY OF BREAST CANCER On letrozole DVT prophylaxis has history of acute pe/dvt last year INR 4, hold coumadin, On SQ heparin Full Code Total 50 minutes spent in review of records, history and care planning and care coordination for this patient. Admission and Anticipated Discharge Date Admission Date: October 02, 2024 Subjective Chart, data and vital signs reviewed. Patient is seen at bedside in the ICU. Patient admitted for sepsis with septic shock secondary to infected ureteral stone. Patient also developed SOFÍA. Patient remains on pressors. Patient is currently n.p.o. She has a Cruz intact. Patient was started on Plasma-Lyte by the critical care team for diminishing urinary output. There is improvement in her renal function/creatinine. Her white count remains markedly elevated. She is on IV cefepime Review of Systems Review of Systems: Constitutional-she feels very weak, minimal appetite Eyes- no acute visual changes ENT- no sinus drainage; no pharyngitis Pulmonary- no cough, no wheezing, no shortness of breath Cardiac- no chest pain, no palpitations, no orthopnea, no dependent edema GI- no nausea, no vomiting, no diarrhea, no melena, no hematochezia -Cruz catheter in draining blood-tinged urine Musculoskeletal- no arthralgias, no myalgias, no flank pain Derm- no rashes, no new skin lesions, Hematologic- no unusual bruising, no unusual bleeding Lymphatics- no adenopathy Neuro- no headaches, no focal neurologic symptoms Psych- no anxiety, no depression Physical Exam Physical Exam: General- adult female seen supine at bedside in the ICU. She appears ill and pale Head- atraumatic Eyes- PERRL, EOMI, anicteric ENT- oropharynx clear Neck- supple, no JVD, no adenopathy, no thyromegaly; carotids +2/2, no bruits appreciated Lungs- clear to auscultation and percussion Heart- regular rhythm; no murmur, no gallop, no rub appreciated Abdomen- normal bowel sounds, soft, nontender on my exam, no masses or hepatosplenomegaly Extremities- no pretibial edema, no calf tenderness; Neuro- alert, oriented x 3; PERRL, EOMI; no facial palsy; no dysarthria; no gross focal deficits noted Skin- warm & dry Results & Data Results & Data Vital Signs (Past 12 Hours) Vital Signs Pulse Resp BP Pulse Ox O2 Del Method O2 Flow Rate 10/03/24 09:33 83 24 91 10/03/24 09:31 120/81 10/03/24 09:27 86 34 H 91 10/03/24 09:21 85 22 93 10/03/24 09:15 131/81 10/03/24 09:09 85 16 87 L 10/03/24 09:00 83 40 H 92 10/03/24 09:00 127/76 10/03/24 08:54 110/88 10/03/24 08:54 83 26 H 93 10/03/24 08:45 123/88 10/03/24 08:41 123/88 10/03/24 08:36 83 27 H 92 10/03/24 08:33 84 22 93 10/03/24 08:18 83 23 93 10/03/24 08:00 82 10/03/24 08:00 Nasal Cannula 4 10/03/24 08:00 Nasal Cannula 10/03/24 07:57 83 23 94 10/03/24 07:51 83 25 H 92 10/03/24 07:45 124/54 L 10/03/24 07:31 108/72 10/03/24 07:30 83 36 H 92 10/03/24 07:15 77/60 L 10/03/24 07:15 85 16 92 10/03/24 06:51 83 18 93 10/03/24 06:33 83 17 94 10/03/24 06:30 98/65 L 10/03/24 06:18 84 18 93 10/03/24 06:15 98/67 L 10/03/24 06:12 84 12 94 10/03/24 06:00 85 10 L 94 6 10/03/24 06:00 100/64 10/03/24 06:00 100/64 10/03/24 05:51 91/60 L 10/03/24 05:42 89 13 93 6 10/03/24 05:31 95/49 L 10/03/24 05:31 95/49 L 10/03/24 05:24 89 14 93 10/03/24 05:03 90 12 93 6 10/03/24 05:00 96/53 L 10/03/24 05:00 96/53 L 10/03/24 04:54 81/49 L 10/03/24 04:54 81/49 L 10/03/24 04:51 90 13 92 6 10/03/24 04:45 87/55 L 10/03/24 04:42 90 14 92 6 10/03/24 04:30 99/62 L 10/03/24 04:30 99/62 L 10/03/24 04:15 93/62 L 10/03/24 04:00 91 H 18 91 6 10/03/24 03:45 108/60 10/03/24 03:45 108/60 10/03/24 03:39 91 H 12 92 6 10/03/24 03:30 113/73 10/03/24 03:18 92 H 17 91 6 10/03/24 03:15 92 H 16 92 6 10/03/24 03:15 104/59 L 10/03/24 03:15 104/59 L 10/03/24 03:00 108/63 10/03/24 03:00 108/63 10/03/24 03:00 93 H 19 91 6 10/03/24 02:45 110/63 10/03/24 02:45 93 H 18 92 6 10/03/24 02:30 104/68 10/03/24 02:30 104/68 10/03/24 02:30 92 H 15 91 6 10/03/24 02:15 100/57 L 10/03/24 02:15 100/57 L 10/03/24 02:15 100/57 L 10/03/24 02:09 93 H 17 91 10/03/24 02:06 93 H 18 91 6 10/03/24 02:00 91/69 L 10/03/24 02:00 91/69 L 10/03/24 01:57 94 H 34 H 90 6 10/03/24 01:45 115/58 L 10/03/24 01:45 115/58 L 10/03/24 01:42 93 H 16 91 6 10/03/24 01:15 109/64 10/03/24 01:15 109/64 10/03/24 01:15 109/64 6 Laboratory Results Short CBC 10/03/24 Range/Units 04:01 WBC 46.15 H* D (4.8-10.8) K/ul Hgb 11.7 L (12.0-16.0) g/dl Hct 35.1 L (37.0-47.0) % Plt Count 236 (130-400) K/uL BMP 10/03/24 04:01 Sodium 133 L Potassium 4.1 D Chloride 105 Carbon Dioxide 15 L BUN 42 H Creatinine 2.29 H Glucose 123 H Calcium 7.6 L Diagnostic Findings Laboratory Results WBC 46.15 K/ul (4.8-10.8) H* D 10/03/24 04:01 RBC 3.84 M/uL (4.20-5.40) L 10/03/24 04:01 Hgb 11.7 g/dl (12.0-16.0) L 10/03/24 04:01 Hct 35.1 % (37.0-47.0) L 10/03/24 04:01 MCV 91.4 fL (80.0-100.0) 10/03/24 04:01 MCH 30.5 pg (25.0-34.0) 10/03/24 04:01 MCHC 33.3 g/dL (32.0-36.0) 10/03/24 04:01 RDW Std Deviation 47.7 fL (36.4-46.3) H 10/03/24 04:01 RDW Coeff of [place] 14.3 % (11.5-14.5) 10/03/24 04:01 Plt Count 236 K/uL (130-400) 10/03/24 04:01 MPV 10.8 fL (9.4-12.4) 10/03/24 04:01 Immature Gran % (Auto) 4.9 % 10/03/24 04:01 Neut % (Auto) 88.0 % 10/03/24 04:01 Lymph % (Auto) 2.2 % 10/03/24 04:01 [place] % (Auto) 4.6 % 10/03/24 04:01 Eos % (Auto) 0.0 % 10/03/24 04:01 Baso % (Auto) 0.3 % 10/03/24 04:01 Neut # (Auto) 40.63 K/uL (1.40-6.50) H 10/03/24 04:01 Lymph # (Auto) 1.02 K/uL (1.20-3.40) L 10/03/24 04:01 [place] # (Auto) 2.11 K/uL (0.11-0.59) H 10/03/24 04:01 Eos # (Auto) 0.00 K/uL (0.00-0.50) 10/03/24 04:01 Baso # (Auto) 0.13 K/uL (0.00-0.20) 10/03/24 04:01 Immature Gran # (Auto) 2.26 K/uL (0.01-0.20) H 10/03/24 04:01 Toxic Vacuolation 1+ 10/03/24 04:01 Dohle Bodies 1+ 10/03/24 04:01 Polychromasia 1+ 10/03/24 04:01 Echinocytes 1+ 10/02/24 09:53 PT 38.7 Seconds (9.0-12.0) H 10/03/24 08:09 INR 4.0 (0.9-1.1) H 10/03/24 08:09 APTT 34 Seconds (21-31) H 10/02/24 09:53 PTT Ratio 1.3 10/02/24 09:53 Sodium 133 mmol/L (136-145) L 10/03/24 04:01 Potassium 4.1 mmol/L (3.5-5.1) D 10/03/24 04:01 Chloride 105 mmol/L (98-107) 10/03/24 04:01 Carbon Dioxide 15 mmol/L (21-32) L 10/03/24 04:01 Anion Gap 13 (3-11) H 10/03/24 04:01 BUN 42 mg/dl (6-23) H 10/03/24 04:01 Creatinine 2.29 mg/dl (0.6-1.2) H 10/03/24 04:01 Est Cr Clr Drug Dosing 23.1 ml/min 10/03/24 04:01 eGFR 22.42 10/03/24 04:01 BUN/Creatinine Ratio 18.3 (10-20) 10/03/24 04:01 Glucose 123 mg/dl (70-99(Fasting)) H 10/03/24 04:01 POC Glucose 104 mg/dl (70-99) H 10/02/24 15:36 POC Glucose (other) 144 mg/dl (70-99) H 10/03/24 00:53 Estimat Average Glucose 128 mg/dl 10/03/24 04:01 Hemoglobin A1c 6.1 % (4.5-5.6) H 10/03/24 04:01 Lactate 2.5 mmol/L (0.4-2.0) H* 10/03/24 08:10 Calcium 7.6 mg/dl (8.6-10.3) L 10/03/24 04:01 Phosphorus 5.4 mg/dl (2.5-4.9) H 10/03/24 04:01 Magnesium 1.7 mg/dl (1.7-2.4) 10/03/24 04:01 Total Bilirubin 1.9 mg/dl (0.2-1.0) H 10/02/24 09:53 AST 54 U/L (13-39) H 10/02/24 09:53 ALT 33 U/L (7-52) 10/02/24 09:53 Alkaline Phosphatase 275 U/L (34-104) H 10/02/24 09:53 Troponin I High Sens 55.8 pg/ml (0-14) H* D 10/02/24 11:38 B-Natriuretic Peptide 216 pg/ml (0-100) H 10/02/24 10:26 Total Protein 6.8 gm/dl (6.0-8.3) 10/02/24 09:53 Albumin 3.1 gm/dl (3.4-5.0) L 10/02/24 09:53 Globulin 3.7 gm/dl (2.5-4.0) 10/02/24 09:53 Albumin/Globulin Ratio 0.8 (0.9-2) L 10/02/24 09:53 Procalcitonin 61.90 ng/ml (0-0.5) H 10/02/24 09:53 TSH 2.077 uIu/ml (0.300-4.500) 10/02/24 09:53 Random Cortisol 57.96 mcg/dl 10/02/24 11:38 Urine Color Dark Yellow 10/02/24 10:11 Urine Appearance Cloudy (Clear) A 10/02/24 10:11 Urine pH 5.5 (4.5-7.5) 10/02/24 10:11 Ur Specific [place] 1.015 (1.000-1.030) 10/02/24 10:11 Urine Protein 2+ (Negative) H 10/02/24 10:11 Urine Glucose (UA) Negative (Negative) 10/02/24 10:11 Urine Ketones Negative (Negative) 10/02/24 10:11 Urine Blood 3+ (Negative) H 10/02/24 10:11 Urine Nitrite Positive (Negative) A 10/02/24 10:11 Urine Bilirubin Negative (Negative) 10/02/24 10:11 Urine Urobilinogen Negative (Negative) 10/02/24 10:11 Ur Leukocyte Esterase 2+ (Negative) H 10/02/24 10:11 Urine WBC (Auto) >50 /hpf (0-5) H 10/02/24 10:11 Urine RBC (Auto) 6-10 /hpf (0-2) H 10/02/24 10:11 U Hyaline Cast (Auto) 11-20 /lpf (0-2) H 10/02/24 10:11 U Epithel Cells (Auto) 0-2 /hpf (0-2) 10/02/24 10:11 Urine Bacteria (Auto) 4+ (None Seen) H 10/02/24 10:11 Urine Osmolality 278 mOsm/kg (500-800) L 10/02/24 Unknown Ur Random Creatinine 183.7 mg/dl 10/02/24 Unknown Ur Random Sodium 70 mmol/L 10/02/24 Unknown Ur Random Potassium 25.4 mmol/L 10/02/24 Unknown Ur Random Chloride 62 mmol/L 10/02/24 Unknown Urine Comment 10/02/24 10:11 Nasal Screen MRSA (PCR) Negative (Negative) 10/02/24 13:35 Impressions Abdomen/Pelvis CT 10/02/24 10:38 CT OF THE ABDOMEN AND PELVIS WITHOUT CONTRAST CLINICAL HISTORY: Lower abdominal pain, chronic renal failure, diarrhea, hypotension. COMPARISON STUDY: CT of the abdomen and pelvis October 10, 2008. Renal ultrasound September 26, 2023. TECHNIQUE: Axial images of the abdomen and pelvis were obtained without IV contrast. Images were reviewed in the axial, sagittal, and coronal planes. Automated exposure control was utilized for the study. A dose lowering technique was utilized adhering to the principles of ALARA. FINDINGS: Prosthetic aortic valve is incidentally noted. The heart is mildly enlarged. There is no pericardial effusion. A 5 mm right middle lobe nodule is unchanged and CT of October 10, 2008. This is benign given stability. Mild groundglass opacities with mosaic attenuation within the lung bases are noted. A 7 mm x 4 mm distal left ureteral calculus results in mild left hydroureteronephrosis. Images of the pelvis are degraded by streak artifact from hip arthroplasties. There is urothelial thickening of the left collecting system and left ureter with moderate left perinephric stranding. There is no right hydronephrosis. There is a 3 mm left lower pole renal calculus. No right-sided urinary calculi are present. Evaluation of the remainder of the abdomen and pelvis is suboptimal on this unenhanced examination. Liver, spleen, adrenal glands and pancreas are unremarkable. Is no evidence for a bowel obstruction. Gas and gas within the bladder is likely from recent Cruz placement. The Cruz balloon is obscured by streak artifact from hip arthroplasties. IMPRESSION: 1. 7 mm x 4 mm distal left ureteral calculus which results in mild left hydroureteronephrosis. Urothelial thickening of the left collecting system and left ureter with perinephric stranding is likely related to the obstruction however a superimposed infectious process could appear similar. 2. 3 mm left lower pole renal calculus. No right-sided urinary calculi. 3. Streak artifact from bilateral hip arthroplasties obscures the pelvis. Gas within the bladder likely from Cruz placement. ACT 112: Negative or not required by law. Electronically signed by: Jose Ramirez M.D. 10/02/2024 11:16 AM Retrograde Pyelogram 10/02/24 14:00 FL retrograde includes kub CLINICAL HISTORY: LT SIDE RETROGRADE COMPARISON STUDY: None FLUOROSCOPY TIME: 5 seconds FLUOROSCOPY IMAGES: 3 EXPOSURE DOSE: 2 mGy FINDINGS: Fluoroscopy was provided for urologic procedure. IMPRESSION: Intraoperative fluoroscopy. ACT 112: Negative or not required by law. Electronically signed by: Jesús Doss M.D. 10/02/2024 3:34 PM Chest X-Ray 10/02/24 14:08 XR chest 1V portable CLINICAL HISTORY: central line placement COMPARISON STUDY: 10/02/2024 FINDINGS: Right central line tip is just above the cavoatrial junction. There is no pneumothorax. No consolidation or pleural effusion. IMPRESSION: No pneumothorax. ACT 112: Negative or not required by law. Electronically signed by: Jesús Doss M.D. 10/02/2024 2:35 PM
--- NOTE | 2024-10-03 13:08 | Pharmacy Report ---
Pharmacy Glycemic Short Note 2 - Date of Service October 03, 2024 - Glycemic Short BSG Results (Last 24 hours): 10/02/24 10/02/24 10/03/24 15:36 18:15 00:53 Glucose POC Glucose 104 H POC Glucose (other) 150 H 144 H 10/03/24 10/03/24 04:01 12:50 Glucose 123 H POC Glucose POC Glucose (other) 139 H OUTPATIENT ANTIDIABETIC REGIMEN: * Metformin XR 1000 mg PO daily HbA1c: * 6.1% ASSESSMENT: 10/03: * BSGs within goal range the last 24h: [phone]/dL. Received 2 units of bolus insulin yesterday. * Continues to require vasopressor support. Diet advanced to clears. * No change to insulin regimen for now - continue to hold basal, Novolog moderate stress scale q6. 10/02: * 69 yo F admitted on 10/02/24 secondary to urosepsis. Pharmacy has been consulted to assist with inpatient glycemic management. Patient is a Type 2 diabetic as an outpatient. Please refer to outpatient regimen and most recent HbA1c above. * BSG upon presentation was 110 mg/dL. Patient did take metformin this AM according to med rec. Currently received Cefepime for UTI. Requiring norepinephrine for BP support at this time. Patient is NPO with plan to go to OR for cystoscopy this afternoon. * Will hold on basal insulin at this time. Want to target a BSG of 110-140 mg/dL with ultimate goal of maintaining BSGs below 180 mg/dL. Concern for poor insulin absorption subcutaneously given pressors. Will start Novolog q6 for NPO status based on weight/stress of 2-3. PLAN FOR INPATIENT GLYCEMIC CONTROL: * Hold outpatient oral diabetes medications * Basal insulin * Holding * Bolus insulin * NovoLog per scale ACHS or Q6hrs while NPO * Goal Range: Low 110 mg/dL - High 140 mg/dL * Correction Factor: 20 mg/dL/unit * Nutritional / Prandial insulin per carb ratio of 1 unit per 7 grams CHO consumed
[2024-10-03] MEDS: VASOPRESSIN 20 UNITS in SODIUM CHLORIDE 0.9% 100 ML IV SCH (15:26)
--- NOTE | 2024-10-04 05:37 | Electrocardiogram Report ---
Test Reason : Blood Pressure : */* mmHG Vent. Rate : 95 BPM Atrial Rate : 95 BPM P-R Int : 116 ms QRS Dur : 124 ms QT Int : 350 ms P-R-T Axes : 19 19 3 degrees QTcB Int : 439 ms Normal sinus rhythm Right bundle branch block Abnormal ECG When compared with ECG of 23-Sep-2023 06:03, T wave inversion no longer evident in Anterior leads Confirmed by Vickey Quiros ([id number]) on 10/04/2024 5:37:23 AM Referred By: Confirmed By: Vickey Quiros
[2024-10-04 05:39] LABS: Alanine Aminotransferase 54.0 U/L (7-52); Alkaline Phosphatase 162.0 U/L (34-104); Anion Gap 10.0 (3-11); Bilirubin,Total 0.7 mg/dl (0.2-1.0); Blood Urea Nitrogen 51.0 mg/dl (6-23); Calcium 7.8 mg/dl (8.6-10.3); Carbon Dioxide 21.0 mmol/L (21-32); Chloride 103.0 mmol/L (98-107); Creatinine Clr Calc Pharmacy 22.8 ml/min; Glucose 75.0 mg/dl (70-99(Fasting)); Magnesium 2.7 mg/dl (1.7-2.4); Potassium 3.9 mmol/L (3.5-5.1); Sodium 134.0 mmol/L (136-145); Total Protein 6.1 gm/dl (6.0-8.3)
[2024-10-04 05:55] LABS: Hematocrit (blood only) 31.9 % (37.0-47.0); Hemoglobin 10.6 g/dl (12.0-16.0); Mean Corpuscular Hemoglobin 30.2 pg (25.0-34.0); Mean Corpuscular Volume 90.9 fL (80.0-100.0); Platelet Count 176 K/uL (130-400); RDW Standard Deviation 48.7 fL (36.4-46.3); Red Blood Count 3.51 M/uL (4.20-5.40); White Blood Count 37.59 K/ul (4.8-10.8)
[2024-10-04] MEDS: CARBOHYDRATES FOR HYPOGLYCEMIA PO PRN (07:25)
--- NOTE | 2024-10-04 07:49 | Critical Care Progress Note ---
Date of Service October 04, 2024 Assessment & Plan (1) Acute renal failure: (2) Septic shock: (3) Hydronephrosis of left kidney: (4) Hypertension: (5) Malignant neoplasm of upper-outer quadrant of right breast in female, estrogen receptor positive: (6) S/P TAVR (transcatheter aortic valve replacement): (7) Diabetes mellitus, type II: (8) GERD (gastroesophageal reflux disease): (9) High anion gap metabolic acidosis: (10) History of DVT (deep vein thrombosis): Plan Reason Critically Ill: 69-year-old female present to the hospital with complaints of weakness and abdominal pain. Was found to be in septic shock with left-sided hydronephrosis and nephrolithiasis. Past medical history: Pulmonary emboli on warfarin, hypertension, diabetes, TAVR Neuro - [facility] ICU: Negative Cardiac - 2D echo 09/23/2023: EF 60-65%, RV normal in size and function, mild MR, mild TR, grade 1 diastolic dysfunction -- Septic shock Source is urinary Continue with vasopressor support to keep 65 --Elevated troponin Likely type II AR Continue to trend EKG 10/02/2024, 9:44 AM: Sinus tachycardia, right bundle branch block, no ST-T wave changes appreciated --S/p TAVR May 2023 --History of hypertension and dyslipidemia On amlodipine 5, benazepril 20, atorvastatin 80 at home Respiratory - -- Acute hypoxic respiratory failure Multifactorial VQ mismatch from patient unable to take deep breaths from abdominal pain BNP 216 Continue with O2 supplementation to keep oxygen saturation between 90-92% --History of pulmonary emboli and DVT On warfarin -- Pulmonary nodule Right lower lobe 5 mm Unchanged 03/2008 Does not need to be followed up GI - --Transaminitis with mild bilirubinemia Alk phos also mildly elevated with chronic elevation -- Abdominal pain Secondary to nephrolithiasis RENAL/LYTES - -- SOFÍA --> improving Monitor BUN/creatinine Avoid nephrotoxic medications Strict ins and outs -- S/p HAGMA Delta-delta: Less than 1, gap plus nongap Gap likely from lactic acidosis Monitor - -- History of nephrolithiasis With acute left-sided hydronephrosis Urology on board ENDO - -- Diabetes type 2 ICU hypoglycemia protocol HEME - --History of right-sided breast cancer Diagnosed in 2020 s/p lumpectomy and radiation On letrozole -- Monitor H&H ID - -- S/p septic shock Source is urinary Urine culture growing E. coli, pansensitive Will change antibiotic to Rocephin --Prophylaxis VTE: Warfarin GI: Famotidine Lines: Right IJ Diet: Clear liquids, advance as tolerated Plan: In/out: +1.2 L, urine output 681, +5.6 L since coming to the hospital Unfortunately patient's creatinine bumped up a little compared to yesterday The urine output is picking up today. Start the patient on clear liquids and advance as tolerated Urine culture growing E. coli, will change cefepime to Rocephin Will order ultrasound of the kidneys. DC Plasma-Lyte Case was discussed with primary team Patient hemodynamically stable to be downgraded to medical floor I spent more than 50 minutes looking in the chart, images, discussing the plan of care with the patient, RN as well as primary team Please note the above document was generated using voice recognition software. It may contain grammatical, syntax or spelling errors.Any formal questions or concerns about the content, text or information contained within the body of this dictation should be directly addressed to the provider for clarification. Admission and Anticipated Discharge Date Admission Date: October 02, 2024 Subjective Patient seen and examined at bedside. No acute distress, no dizziness overnight Has been off vasopressors since 10 PM yesterday Her sugar was a bit on the lower side Denies any chest pain She was saturating 95 to 96% on 2 L nasal cannula Still lethargic Able to tolerate clear liquid diet Denies any nausea or vomiting No abdominal pain Review of Systems 2 Review of Systems: All systems reviewed & are unremarkable except as noted in Subjective Physical Exam 2 Physical Exam: Constitutional: No acute distress HEENT: EOMI, PERRLA Respiratory system: Decreased air entry bilaterally, no wheeze, no rhonchi, p ositive crackles bilateral lower lobes CVS: S1-S2 positive, no murmur or gallops Abdomen: Soft, nontender, nondistended, positive bowel sounds x4, obese Extremities: + 1 pulses bilaterally radialis/ dorsalis pedis, no cyanosis, minimal pitting edema bilateral lower extremity Neuro: Awake alert oriented x3 Psych: Normal mood and affect G/U: Positive Cruz Skin: no rashes, warm and dry Lymphatic: no cervical or axillary lymphadenopathy Results & Data Results & Data Vital Signs (Past 12 Hours) Vital Signs Temp Pulse Resp BP Pulse Ox O2 Del Method O2 Flow Rate 10/04/24 07:41 36.6 C 10/04/24 07:30 104/84 10/04/24 07:24 69 18 93 Nasal Cannula 2 10/04/24 07:03 68 93 10/04/24 07:00 113/65 10/04/24 06:39 69 15 93 10/04/24 06:30 69 13 93 10/04/24 06:30 115/62 10/04/24 06:00 70 14 93 2 10/04/24 06:00 110/62 10/04/24 05:33 70 14 93 2 10/04/24 05:30 112/63 10/04/24 05:24 69 13 93 2 10/04/24 05:12 71 13 93 2 10/04/24 05:01 105/68 10/04/24 04:54 70 12 93 2 10/04/24 04:42 71 14 93 2 10/04/24 04:30 113/61 10/04/24 04:12 68 15 94 2 10/04/24 04:03 68 14 92 2 10/04/24 04:00 110/62 10/04/24 03:57 70 15 92 3 10/04/24 03:30 107/63 10/04/24 03:30 70 16 93 3 10/04/24 03:00 70 13 93 3 10/04/24 03:00 95/62 L 10/04/24 02:42 72 14 93 3 10/04/24 02:33 103/63 10/04/24 02:18 71 15 94 3 10/04/24 02:00 71 10 L 94 3 10/04/24 02:00 96/61 L 10/04/24 01:40 103/57 L 10/04/24 01:39 71 13 94 3 10/04/24 01:36 73 15 94 3 10/04/24 01:03 73 17 95 3 10/04/24 01:00 90/56 L 10/04/24 00:51 73 15 95 4 10/04/24 00:30 73 13 92 4 10/04/24 00:30 91/53 L 10/04/24 00:15 92/56 L 10/04/24 00:09 74 17 96 4 10/04/24 00:00 74 10/04/24 00:00 75 21 93 4 10/04/24 00:00 88/55 L 10/03/24 23:48 76 19 93 4 10/03/24 23:45 84/50 L 10/03/24 23:31 109/51 L 10/03/24 23:27 78 13 94 4 10/03/24 23:15 111/57 L 10/03/24 23:15 77 18 96 10/03/24 23:06 76 17 98 10/03/24 23:00 87/66 L 10/03/24 22:48 75 15 97 5 10/03/24 22:45 105/65 10/03/24 22:39 74 14 97 5 10/03/24 22:36 74 12 98 5 10/03/24 22:31 101/55 L 10/03/24 22:18 76 17 93 6 10/03/24 22:15 121/60 10/03/24 22:09 75 20 94 6 10/03/24 22:01 129/57 L 10/03/24 21:46 104/67 10/03/24 21:42 73 24 97 6 10/03/24 21:30 75 18 97 10/03/24 21:30 121/75 10/03/24 21:18 75 17 97 6 10/03/24 21:15 108/67 10/03/24 21:00 109/71 10/03/24 20:46 97/68 L 10/03/24 20:39 74 30 H 96 10/03/24 20:33 74 20 97 6 10/03/24 20:30 103/67 10/03/24 20:24 76 23 97 6 10/03/24 20:15 75 17 97 6 10/03/24 20:15 104/68 Laboratory Results 10/04/24 04:38 10/04/24 04:38 Coding Level of Care Code 88588 SUB INP/OBS CARE 3/50MIN Diagnoses Acute renal failure N17.9 Septic shock A41.9; R65.21 Hydronephrosis of left kidney N13.30 Hypertension I10 Malignant neoplasm of upper-outer quadrant of right breast in female, estrogen receptor positive C50.411; Z17.0 S/P TAVR (transcatheter aortic valve replacement) Z95.2 Diabetes mellitus, type II E11.9 GERD (gastroesophageal reflux disease) K21.9 High anion gap metabolic acidosis E87.29 History of DVT (deep vein thrombosis) Z86.718
[2024-10-04] MEDS: INSULIN ASPART PER UNIT CHARGE SC SCH (08:18)
[2024-10-04] MEDS: FAMOTIDINE 20MG IV PUSH 20 MG/5 ML SYR IV SCH (08:30)
[2024-10-04 08:51] LABS: INR 5.0 (0.9-1.1); Prothrombin Time 47.0 Seconds (9.0-12.0)
--- NOTE | 2024-10-04 11:08 | Urology Progress Note ---
Date of Service October 04, 2024 Assessment & Plan (1) Hydronephrosis: (2) Ureteral stone: (3) Acute UTI: (4) Sepsis: Plan 69-year-old female s/p left ureteral stent placement on 10/02/2024. Both kidneys and bladder appear to be draining well. No plan for additional urologic in tervention at this time. Agree with broad antibiotics, can narrow if more culture data becomes available. Would defer to hospitalist and ICU team for additional supportive care and treatments. Urology will coordinate outpatient follow-up for stone removal. Please call with any questions or concerns. Admission and Anticipated Discharge Date Admission Date: October 02, 2024 Subjective 69-year-old female s/p cystoscopy, left retrograde pyelogram and left ureteral stent placement on 10/02/2024 for obstructing stone in the setting of infection and sepsis. Feeling weak this morning, reports fluctuating sweats/chills over the last couple days. Mild improvement in leukocytosis but still significantly elevated at 37, creatinine slightly further elevated, up from 2.29-2.36. Urine culture from 10/02 with E. coli, blood cultures negative so far. She had a retroperitoneal ultrasound performed on 10/04/2024. I independently reviewed these images. I did not appreciate any significant hydronephrosis bilaterally. Bladder is decompressed with Cruz catheter in place. Formal radiology read still pending. Physical Exam Physical Exam: Resting in bed, ill-appearing Breathing comfortably with supplemental oxygen by nasal cannula Cruz catheter in place draining red-tinged urine Results & Data Vital Signs (Past 12 Hours) Vital Signs Temp Pulse Resp BP Pulse Ox O2 Del Method O2 Flow Rate 10/04/24 08:42 73 12 94 Nasal Cannula 2 10/04/24 08:30 111/68 10/04/24 08:27 71 20 94 10/04/24 08:21 76 19 94 10/04/24 08:12 75 14 94 10/04/24 08:00 Nasal Cannula 2 10/04/24 08:00 68 10/04/24 07:58 123/73 10/04/24 07:45 73 16 92 10/04/24 07:41 36.6 C 10/04/24 07:30 104/84 10/04/24 07:24 69 18 93 Nasal Cannula 2 10/04/24 07:03 68 93 10/04/24 07:00 113/65 10/04/24 06:39 69 15 93 10/04/24 06:30 69 13 93 10/04/24 06:30 115/62 10/04/24 06:00 70 14 93 2 10/04/24 06:00 110/62 10/04/24 05:33 70 14 93 2 10/04/24 05:30 112/63 10/04/24 05:24 69 13 93 2 10/04/24 05:12 71 13 93 2 10/04/24 05:01 105/68 10/04/24 04:54 70 12 93 2 10/04/24 04:42 71 14 93 2 10/04/24 04:30 113/61 10/04/24 04:12 68 15 94 2 10/04/24 04:03 68 14 92 2 10/04/24 04:00 110/62 10/04/24 03:57 70 15 92 3 10/04/24 03:30 107/63 10/04/24 03:30 70 16 93 3 10/04/24 03:00 70 13 93 3 10/04/24 03:00 95/62 L 10/04/24 02:42 72 14 93 3 10/04/24 02:33 103/63 10/04/24 02:18 71 15 94 3 10/04/24 02:00 71 10 L 94 3 10/04/24 02:00 96/61 L 10/04/24 01:40 103/57 L 10/04/24 01:39 71 13 94 3 10/04/24 01:36 73 15 94 3 10/04/24 01:03 73 17 95 3 10/04/24 01:00 90/56 L 10/04/24 00:51 73 15 95 4 10/04/24 00:30 73 13 92 4 10/04/24 00:30 91/53 L 10/04/24 00:15 92/56 L 10/04/24 00:09 74 17 96 4 10/04/24 00:00 74 10/04/24 00:00 75 21 93 4 10/04/24 00:00 88/55 L 10/03/24 23:48 76 19 93 4 10/03/24 23:45 84/50 L 10/03/24 23:31 109/51 L 10/03/24 23:27 78 13 94 4 10/03/24 23:15 111/57 L 10/03/24 23:15 77 18 96 PG Care Time/CCT Total # of Minutes Spent Total Time Spent with Patient: Total time spent is greater than 50% in coordination of care (as documented) at patient's floor/unit and/or counseling patient: Coding Level of Care Code 95509 SUB INP/OBS CARE 2/35MIN Diagnoses Hydronephrosis N13.2 Hydronephrosis type: with renal calculous obstruction Ureteral stone N20.1 Acute UTI N39.0 Sepsis A41.9; R65.21; N17.9 Acute renal failure type: unspecified Sepsis acute organ dysfunction status: with acute organ dysfunction Sepsis type: sepsis due to unspecified organism Severe sepsis acute organ dysfunction type: acute renal failure Severe sepsis shock status: with septic shock (1) Hydronephrosis Hydronephrosis type: with renal calculous obstruction Qualified Code(s): N13.2 - Hydronephrosis with renal and ureteral calculous obstruction (4) Sepsis Acute renal failure type: unspecified Sepsis acute organ dysfunction status: with acute organ dysfunction Sepsis type: sepsis due to unspecified organism Severe sepsis acute organ dysfunction type: acute renal failure Severe sepsis shock status: with septic shock Qualified Code(s): A41.9 - Sepsis, unspecified organism; R65.21 - Severe sepsis with septic shock; N17.9 - Acute kidney failure, unspecified
--- NOTE | 2024-10-04 11:15 | Ultrasound Report ---
RENAL ULTRASOUND HISTORY: Rule out obstruction. COMPARISON: CT of 10/02/2024 and ultrasound of 09/26/2023 FINDINGS: Right kidney measures 10 x 4 cm. Left kidney measures 11 x 5 cm. There is no hydronephrosis bilaterally. No renal calculi seen. There is normal Doppler flow to both kidneys. Urinary bladder is empty and not visualized. IMPRESSION: No hydronephrosis. ACT 112: Negative or not required by law. Electronically signed by: Jesús Doss M.D. 10/04/2024 11:14 AM
--- NOTE | 2024-10-04 13:53 | Hospitalist Progress Note ---
Date of Service October 04, 2024 Assessment & Plan (1) Septic shock: (2) Left ureteral stone: (3) Acute renal failure: Plan: In summary, 69-year-old female with history of status post TAVR, diabetes type 2, hypertension, PE/DVT on Coumadin is admitted with abdominal pain and weakness x 4 days resulting in sepsis with shock secondary to urinary source.. SEPTIC SHOCK SECONDARY TO COMPLICATED URINARY TRACT INFECTION, POSSIBLE PYELONEPHRITIS UROLITHIASIS, LEFT She is off pressors now Initial lactic acid 4.6, repeat trending down 2.5 History of Klebsiella UTI based on outpatient records Urine culture showing E. coli but an insignificant number Blood cultures obtained at the ER: No growth to date Continue IV antibiotics for now MRSA swab negative Monitor volume status closely Urology service consulted S/P Cystoscopy, with Left Aspiration, Retrograde pyelogram, and Left Ureteral Stent Placement. Patient stable for transfer out of ICU ACUTE RESPIRATORY FAILURE WITH HYPOXIA Wean O2 as able BNP 200s CXR: mild CHF pattern 2D echo 09/23/2023: EF 60-65%, RV normal in size and function, mild MR, mild TR, grade 1 diastolic dysfunction ACUTE RENAL FAILURE SECONDARY TO SEPTIC SHOCK, POSSIBLE OBSTRUCTIVE UROPATHY, PRE-RENAL ETIOLOGY FROM POOR ORAL INTAKE baseline crea 1.2-->2.5-->2.29-->2.36 management of septic shock, urolithiasis as per above Off Plasma-Lyte IV fluids currently, advance diet HISTORY OF ACUTE PE/DVT INR 2.4-->4.0--> 5.0 Coumadin on hold for now. On SC heparin HISTORY OF AORTIC STENOSIS, S/P TAVR MAY 2023 DM 2 Insulin sliding scale Pharmacy glycemic consult HTN Cont hold BP meds for now Elevated troponins Demand ischemia Trop 81.9-->55.8 EKG reviewed HISTORY OF BILATERAL HIP REPLACEMENT, AUGUST 2023 HISTORY OF BREAST CANCER On letrozole DVT prophylaxis has history of acute pe/dvt last year INR 5, hold coumadin, On SQ heparin Full Code Total 56 minutes spent in review of records, history and care planning and care coordination for this patient. Admission and Anticipated Discharge Date Admission Date: October 02, 2024 Subjective Chart, data and vital signs reviewed. Patient is seen at bedside in the ICU. The critical care doctor and nursing present. Patient admitted for sepsis with septic shock secondary to infected ureteral stone. Patient also developed SOFÍA. Patient is off pressors. She is tolerating p.o. she has a Cruz intact. Her urinary output has improved there is improvement in her renal functi on/creatinine. Her white count remains markedly elevated but improved. She is on IV cefepime. She denies chest pain. She feels very weak. She remains on O2 via nasal cannula. She denies nausea. She does not have a headache or visual disturbance. Physical Exam Physical Exam: General- adult female seen supine at bedside in the ICU. She appears ill and pale Head- atraumatic Eyes- PERRL, EOMI, anicteric ENT- oropharynx clear Neck- supple, no JVD, no adenopathy, no thyromegaly; Lungs- clear to auscultation and percussion Heart- regular rhythm; no murmur, no gallop, no rub appreciated Abdomen- normal bowel sounds, soft, nontender on my exam, no masses or hepatosplenomegaly Extremities- no pretibial edema, no calf tenderness; Neuro- alert, oriented x 3; PERRL, EOMI; moves all extremities Skin- warm & dry Results & Data Results & Data Vital Signs (Past 12 Hours) Vital Signs Temp Pulse Resp BP Pulse Ox O2 Del Method O2 Flow Rate 10/04/24 12:30 74 15 97 Nasal Cannula 2 10/04/24 12:30 134/81 10/04/24 12:30 134/81 10/04/24 12:30 134/81 10/04/24 12:30 134/81 10/04/24 12:00 75 19 95 10/04/24 12:00 147/73 H 10/04/24 12:00 147/73 H 10/04/24 12:00 147/73 H 10/04/24 11:30 126/76 10/04/24 11:30 126/76 10/04/24 11:30 126/76 10/04/24 11:27 70 14 95 10/04/24 11:00 74 20 94 10/04/24 11:00 125/75 10/04/24 10:51 131/68 10/04/24 10:51 131/68 10/04/24 10:51 131/68 10/04/24 10:51 76 19 94 10/04/24 10:00 108/72 10/04/24 10:00 108/72 10/04/24 10:00 108/72 10/04/24 10:00 108/72 10/04/24 10:00 108/72 10/04/24 10:00 72 17 94 10/04/24 09:30 110/79 10/04/24 09:30 110/79 10/04/24 09:30 110/79 10/04/24 09:27 72 18 94 10/04/24 09:18 73 22 94 10/04/24 09:00 105/71 10/04/24 08:54 77 17 93 10/04/24 08:42 73 12 94 Nasal Cannula 2 10/04/24 08:30 111/68 10/04/24 08:27 71 20 94 10/04/24 08:21 76 19 94 10/04/24 08:12 75 14 94 10/04/24 08:00 Nasal Cannula 2 10/04/24 08:00 68 10/04/24 07:58 123/73 10/04/24 07:45 73 16 92 10/04/24 07:41 36.6 C 10/04/24 07:30 104/84 10/04/24 07:24 69 18 93 Nasal Cannula 2 10/04/24 07:03 68 93 10/04/24 07:00 113/65 10/04/24 06:39 69 15 93 10/04/24 06:30 69 13 93 10/04/24 06:30 115/62 10/04/24 06:00 70 14 93 2 10/04/24 06:00 110/62 10/04/24 05:33 70 14 93 2 10/04/24 05:30 112/63 10/04/24 05:24 69 13 93 2 10/04/24 05:12 71 13 93 2 10/04/24 05:01 105/68 10/04/24 04:54 70 12 93 2 10/04/24 04:42 71 14 93 2 10/04/24 04:30 113/61 10/04/24 04:12 68 15 94 2 10/04/24 04:03 68 14 92 2 10/04/24 04:00 110/62 10/04/24 03:57 70 15 92 3 10/04/24 03:30 107/63 10/04/24 03:30 70 16 93 3 10/04/24 03:00 70 13 93 3 10/04/24 03:00 95/62 L 10/04/24 02:42 72 14 93 3 10/04/24 02:33 103/63 10/04/24 02:18 71 15 94 3 10/04/24 02:00 71 10 L 94 3 10/04/24 02:00 96/61 L Laboratory Results Short CBC 10/04/24 Range/Units 04:38 WBC 37.59 H* (4.8-10.8) K/ul Hgb 10.6 L (12.0-16.0) g/dl Hct 31.9 L (37.0-47.0) % Plt Count 176 (130-400) K/uL BMP 10/04/24 04:38 Sodium 134 L Potassium 3.9 Chloride 103 Carbon Dioxide 21 BUN 51 H Creatinine 2.36 H Glucose 75 Calcium 7.8 L Liver Function 10/04/24 Range/Units 04:38 Total Bilirubin 0.7 D (0.2-1.0) mg/dl Direct Bilirubin 0.3 H (0-0.2) mg/dl AST 53 H (13-39) U/L ALT 54 H (7-52) U/L Alkaline Phosphatase 162 H (34-104) U/L Albumin 2.4 L (3.4-5.0) gm/dl Diagnostic Findings Laboratory Results WBC 37.59 K/ul (4.8-10.8) H* 10/04/24 04:38 RBC 3.51 M/uL (4.20-5.40) L 10/04/24 04:38 Hgb 10.6 g/dl (12.0-16.0) L 10/04/24 04:38 Hct 31.9 % (37.0-47.0) L 10/04/24 04:38 MCV 90.9 fL (80.0-100.0) 10/04/24 04:38 MCH 30.2 pg (25.0-34.0) 10/04/24 04:38 MCHC 33.2 g/dL (32.0-36.0) 10/04/24 04:38 RDW Std Deviation 48.7 fL (36.4-46.3) H 10/04/24 04:38 RDW Coeff of [place] 14.6 % (11.5-14.5) H 10/04/24 04:38 Plt Count 176 K/uL (130-400) 10/04/24 04:38 MPV 10.6 fL (9.4-12.4) 10/04/24 04:38 Immature Gran % (Auto) 4.9 % 10/03/24 04:01 Neut % (Auto) 88.0 % 10/03/24 04:01 Lymph % (Auto) 2.2 % 10/03/24 04:01 [place] % (Auto) 4.6 % 10/03/24 04:01 Eos % (Auto) 0.0 % 10/03/24 04:01 Baso % (Auto) 0.3 % 10/03/24 04:01 Neut # (Auto) 40.63 K/uL (1.40-6.50) H 10/03/24 04:01 Lymph # (Auto) 1.02 K/uL (1.20-3.40) L 10/03/24 04:01 [place] # (Auto) 2.11 K/uL (0.11-0.59) H 10/03/24 04:01 Eos # (Auto) 0.00 K/uL (0.00-0.50) 10/03/24 04:01 Baso # (Auto) 0.13 K/uL (0.00-0.20) 10/03/24 04:01 Immature Gran # (Auto) 2.26 K/uL (0.01-0.20) H 10/03/24 04:01 Toxic Vacuolation 1+ 10/03/24 04:01 Dohle Bodies 1+ 10/03/24 04:01 Polychromasia 1+ 10/03/24 04:01 Echinocytes 1+ 10/02/24 09:53 PT 47.0 Seconds (9.0-12.0) H 10/04/24 08:03 INR 5.0 (0.9-1.1) H 10/04/24 08:03 APTT 34 Seconds (21-31) H 10/02/24 09:53 PTT Ratio 1.3 10/02/24 09:53 Sodium 134 mmol/L (136-145) L 10/04/24 04:38 Potassium 3.9 mmol/L (3.5-5.1) 10/04/24 04:38 Chloride 103 mmol/L (98-107) 10/04/24 04:38 Carbon Dioxide 21 mmol/L (21-32) 10/04/24 04:38 Anion Gap 10 (3-11) 10/04/24 04:38 BUN 51 mg/dl (6-23) H 10/04/24 04:38 Creatinine 2.36 mg/dl (0.6-1.2) H 10/04/24 04:38 Est Cr Clr Drug Dosing 22.8 ml/min 10/04/24 04:38 eGFR 21.63 10/04/24 04:38 BUN/Creatinine Ratio 21.6 (10-20) H 10/04/24 04:38 Glucose 75 mg/dl (70-99(Fasting)) 10/04/24 04:38 POC Glucose 112 mg/dl (70-99) H 10/04/24 11:30 POC Glucose (other) 106 mg/dl (70-99) H 10/03/24 18:36 Estimat Average Glucose 128 mg/dl 10/03/24 04:01 Hemoglobin A1c 6.1 % (4.5-5.6) H 10/03/24 04:01 Lactate 2.5 mmol/L (0.4-2.0) H* 10/03/24 08:10 Calcium 7.8 mg/dl (8.6-10.3) L 10/04/24 04:38 Phosphorus 5.2 mg/dl (2.5-4.9) H 10/04/24 04:38 Magnesium 2.7 mg/dl (1.7-2.4) H 10/04/24 04:38 Total Bilirubin 0.7 mg/dl (0.2-1.0) D 10/04/24 04:38 Direct Bilirubin 0.3 mg/dl (0-0.2) H 10/04/24 04:38 AST 53 U/L (13-39) H 10/04/24 04:38 ALT 54 U/L (7-52) H 10/04/24 04:38 Alkaline Phosphatase 162 U/L (34-104) H 10/04/24 04:38 Troponin I High Sens 55.8 pg/ml (0-14) H* D 10/02/24 11:38 B-Natriuretic Peptide 216 pg/ml (0-100) H 10/02/24 10:26 Total Protein 6.1 gm/dl (6.0-8.3) 10/04/24 04:38 Albumin 2.4 gm/dl (3.4-5.0) L 10/04/24 04:38 Globulin 3.7 gm/dl (2.5-4.0) 10/02/24 09:53 Albumin/Globulin Ratio 0.8 (0.9-2) L 10/02/24 09:53 Procalcitonin 61.90 ng/ml (0-0.5) H 10/02/24 09:53 TSH 2.077 uIu/ml (0.300-4.500) 10/02/24 09:53 Random Cortisol 57.96 mcg/dl 10/02/24 11:38 Urine Color Dark Yellow 10/02/24 10:11 Urine Appearance Cloudy (Clear) A 10/02/24 10:11 Urine pH 5.5 (4.5-7.5) 10/02/24 10:11 Ur Specific [place] 1.015 (1.000-1.030) 10/02/24 10:11 Urine Protein 2+ (Negative) H 10/02/24 10:11 Urine Glucose (UA) Negative (Negative) 10/02/24 10:11 Urine Ketones Negative (Negative) 10/02/24 10:11 Urine Blood 3+ (Negative) H 10/02/24 10:11 Urine Nitrite Positive (Negative) A 10/02/24 10:11 Urine Bilirubin Negative (Negative) 10/02/24 10:11 Urine Urobilinogen Negative (Negative) 10/02/24 10:11 Ur Leukocyte Esterase 2+ (Negative) H 10/02/24 10:11 Urine WBC (Auto) >50 /hpf (0-5) H 10/02/24 10:11 Urine RBC (Auto) 6-10 /hpf (0-2) H 10/02/24 10:11 U Hyaline Cast (Auto) 11-20 /lpf (0-2) H 10/02/24 10:11 U Epithel Cells (Auto) 0-2 /hpf (0-2) 10/02/24 10:11 Urine Bacteria (Auto) 4+ (None Seen) H 10/02/24 10:11 Urine Osmolality 278 mOsm/kg (500-800) L 10/02/24 Unknown Ur Random Creatinine 183.7 mg/dl 10/02/24 Unknown Ur Random Sodium 70 mmol/L 10/02/24 Unknown Ur Random Potassium 25.4 mmol/L 10/02/24 Unknown Ur Random Chloride 62 mmol/L 10/02/24 Unknown Urine Comment 10/02/24 10:11 Nasal Screen MRSA (PCR) Negative (Negative) 10/02/24 13:35 Impressions Abdomen/Pelvis CT 10/02/24 10:38 CT OF THE ABDOMEN AND PELVIS WITHOUT CONTRAST CLINICAL HISTORY: Lower abdominal pain, chronic renal failure, diarrhea, hypotension. COMPARISON STUDY: CT of the abdomen and pelvis October 10, 2008. Renal ultrasound September 26, 2023. TECHNIQUE: Axial images of the abdomen and pelvis were obtained without IV contrast. Images were reviewed in the axial, sagittal, and coronal planes. Automated exposure control was utilized for the study. A dose lowering technique was utilized adhering to the principles of ALARA. FINDINGS: Prosthetic aortic valve is incidentally noted. The heart is mildly enlarged. There is no pericardial effusion. A 5 mm right middle lobe nodule is unchanged and CT of October 10, 2008. This is benign given stability. Mild g roundglass opacities with mosaic attenuation within the lung bases are noted. A 7 mm x 4 mm distal left ureteral calculus results in mild left hydroureteronephrosis. Images of the pelvis are degraded by streak artifact from hip arthroplasties. There is urothelial thickening of the left collecting system and left ureter with moderate left perinephric stranding. There is no right hydronephrosis. There is a 3 mm left lower pole renal calculus. No right-sided urinary calculi are present. Evaluation of the remainder of the abdomen and pelvis is suboptimal on this unenhanced examination. Liver, spleen, adrenal glands and pancreas are unremarkable. Is no evidence for a bowel obstruction. Gas and gas within the bladder is likely from recent Cruz placement. The Cruz balloon is obscured by streak artifact from hip arthroplasties. IMPRESSION: 1. 7 mm x 4 mm distal left ureteral calculus which results in mild left hydroureteronephrosis. Urothelial thickening of the left collecting system and left ureter with perinephric stranding is likely related to the obstruction however a superimposed infectious process could appear similar. 2. 3 mm left lower pole renal calculus. No right-sided urinary calculi. 3. Streak artifact from bilateral hip arthroplasties obscures the pelvis. Gas within the bladder likely from Cruz placement. ACT 112: Negative or not required by law. Electronically signed by: Jose Ramirez M.D. 10/02/2024 11:16 AM Retrograde Pyelogram 10/02/24 14:00 FL retrograde includes kub CLINICAL HISTORY: LT SIDE RETROGRADE COMPARISON STUDY: None FLUOROSCOPY TIME: 5 seconds FLUOROSCOPY IMAGES: 3 EXPOSURE DOSE: 2 mGy FINDINGS: Fluoroscopy was provided for urologic procedure. IMPRESSION: Intraoperative fluoroscopy. ACT 112: Negative or not required by law. Electronically signed by: Jesús Doss M.D. 10/02/2024 3:34 PM Chest X-Ray 10/02/24 14:08 XR chest 1V portable CLINICAL HISTORY: central line placement COMPARISON STUDY: 10/02/2024 FINDINGS: Right central line tip is just above the cavoatrial junction. There is no pneumothorax. No consolidation or pleural effusion. IMPRESSION: No pneumothorax. ACT 112: Negative or not required by law. Electronically signed by: Jesús Doss M.D. 10/02/2024 2:35 PM Renal Ultrasound 10/04/24 10:36 RENAL ULTRASOUND HISTORY: Rule out obstruction. COMPARISON: CT of 10/02/2024 and ultrasound of 09/26/2023 FINDINGS: Right kidney measures 10 x 4 cm. Left kidney measures 11 x 5 cm. There is no hydronephrosis bilaterally. No renal calculi seen. There is normal Doppler flow to both kidneys. Urinary bladder is empty and not visualized. IMPRESSION: No hydronephrosis. ACT 112: Negative or not required by law. Electronically signed by: Jesús Doss M.D. 10/04/2024 11:14 AM
--- NOTE | 2024-10-04 14:10 | CT Scan Report ---
CT head without contrast History: Slurred speech Comparison: None Technique: Using multidetector thin collimation helical acquisition technique, axial, coronal and sagittal CT images from the skull base to the vertex were obtained without intravenous contrast. Dose reduction techniques were achieved by using automatic exposure control and/or adjustment of mA and/or kV according to patient size and/or use of iterative reconstruction technique. Findings: No intracranial hemorrhage, mass-effect, or midline shift. The ventricles are proportionate to the cerebral sulci. The benavidez to white matter differentiation of the cerebral hemispheres is preserved. The basal cisterns are patent. Bilateral maxillary sinus mucosal thickening. Mastoid air cells are clear. Impression: No acute intracranial pathology. Electronically signed by Emanuel Billingsley 10-04-2024 2:10 PM
[2024-10-04] MEDS ORDERED: TRIAMCINOLONE ACET 0.1% CR 15 GM TUBE TOP PRN (14:15)
[2024-10-04] MEDS ORDERED: CYCLOBENZAPRINE HCL 10 MG TAB PO PRN (14:15)
[2024-10-04] MEDS: WARFARIN SOD 3 MG TAB PO SCH (14:21)
[2024-10-04] MEDS: ACETAMINOPHEN 500 MG TAB PO SCH (14:28)
[2024-10-04] MEDS ORDERED: WARFARIN SOD 0.5 MG TAB PO SCH (16:00)
[2024-10-04] MEDS ORDERED: NON-FORMULARY MEDICATION (Riboflavin (Vitamin B2) 100 mg Tablet) PO SCH (21:00)
[2024-10-04] MEDS: ATORVASTATIN 40 MG TAB PO SCH (21:03)
[2024-10-04] MEDS: cefTRIAXone SODIUM 2,000 MG/50 ML BAG IV SCH (21:08)
[2024-10-05 06:16] LABS: Hematocrit (blood only) 30.9 % (37.0-47.0); Hemoglobin 10.2 g/dl (12.0-16.0); Mean Corpuscular Hemoglobin 30.1 pg (25.0-34.0); Mean Corpuscular Volume 91.2 fL (80.0-100.0); Platelet Count 168 K/uL (130-400); RDW Standard Deviation 46.5 fL (36.4-46.3); Red Blood Count 3.39 M/uL (4.20-5.40); White Blood Count 29.07 K/ul (4.8-10.8)
[2024-10-05 06:48] LABS: Alanine Aminotransferase 77.0 U/L (7-52); Alkaline Phosphatase 384.0 U/L (34-104); Anion Gap 8.0 (3-11); Bilirubin,Total 0.7 mg/dl (0.2-1.0); Blood Urea Nitrogen 55.0 mg/dl (6-23); Calcium 8.3 mg/dl (8.6-10.3); Carbon Dioxide 24.0 mmol/L (21-32); Chloride 108.0 mmol/L (98-107); Creatinine Clr Calc Pharmacy 29.9 ml/min; Glucose 81.0 mg/dl (70-99(Fasting)); Magnesium 2.8 mg/dl (1.7-2.4); Potassium 3.6 mmol/L (3.5-5.1); Sodium 140.0 mmol/L (136-145); Total Protein 5.9 gm/dl (6.0-8.3)
[2024-10-05 06:51] LABS: INR 4.1 (0.9-1.1); Prothrombin Time 39.0 Seconds (9.0-12.0)
[2024-10-05] MEDS: CYANOCOBALAMIN (B-12) 500 MCG TABLET PO SCH (08:38)
[2024-10-05] MEDS: EZETIMIBE 10 MG TAB PO SCH (08:39)
[2024-10-05] MEDS: ENALAPRIL MALEATE 10 MG TAB PO SCH (08:39)
[2024-10-05] MEDS ORDERED: OMEGA-3 (PURIFIED FISH OIL) 1 GM CAP PO SCH (09:00)
--- NOTE | 2024-10-05 10:09 | Ultrasound Report ---
US liver CLINICAL HISTORY: rising lfts COMPARISON STUDY: CT of 10/02/2024 FINDINGS: Pancreatic tail is obscured by bowel gas. Visualized pancreatic body is grossly unremarkabl e. There is normal direction of flow in the portal vein. Gallbladder is unremarkable with no gallston es or gallbladder wall thickening. No pericholecystic fluid or ascites. Common bile duct has normal d iameter of 5 mm. Right kidney shows no hydronephrosis. Liver is unremarkable measuring 15 cm. IMPRESSION: No acute findings. No gallstones or evidence of acute cholecystitis. ACT 112: Negative or not required by law. Electronically signed by: Jesús Doss M.D. 10/05/2024 10:06 AM
--- NOTE | 2024-10-05 12:15 | Hospitalist Progress Note ---
Date of Service October 05, 2024 Assessment & Plan (1) Septic shock: (2) Left ureteral stone: (3) Acute renal failure: Plan: In summary, 69-year-old female with history of status post TAVR, diabetes type 2, hypertension, PE/DVT on Coumadin is admitted with abdominal pain and weakness x 4 days resulting in sepsis with shock secondary to urinary source. SEPTIC SHOCK SECONDARY TO COMPLICATED URINARY TRACT INFECTION, POSSIBLE PYELONEPHRITIS UROLITHIASIS, LEFT History of Klebsiella UTI based on outpatient records Urine culture showing E. coli pansensitive Blood cultures obtained at the ER: No growth to date Continue IV CTX MRSA swab negative Monitor volume status closely Urology service consulted S/P Cystoscopy, with Left Aspiration, Retrograde pyelogram, and Left Ureteral Stent Placement. ACUTE RESPIRATORY FAILURE WITH HYPOXIA Wean O2 as able BNP 200s CXR: mild CHF pattern. developing some edema now. May need diuretic 2D echo 09/23/2023: EF 60-65%, RV normal in size and function, mild MR, mild TR, grade 1 diastolic dysfunction ACUTE RENAL FAILURE SECONDARY TO SEPTIC SHOCK, POSSIBLE OBSTRUCTIVE UROPATHY, PRE-RENAL ETIOLOGY FROM POOR ORAL INTAKE Improving baseline crea 1.2-->2.5-->2.29-->2.36-->1.82 management of septic shock, urolithiasis as per above Off Plasma-Lyte IV fluids currently, advance diet HISTORY OF ACUTE PE/DVT INR 2.4-->4.0--> 5.0-->4.0 Coumadin on hold for now. On SC heparin HISTORY OF AORTIC STENOSIS, S/P TAVR MAY 2023 DM 2 Insulin sliding scale Pharmacy glycemic consult HTN Cont hold BP meds for now Elevated troponins Demand ischemia Trop 81.9-->55.8 EKG reviewed HISTORY OF BILATERAL HIP REPLACEMENT, AUGUST 2023 HISTORY OF BREAST CANCER On letrozole LFT elevation Right upper quadrant ultrasound unremarkable. Suspect shock liver. Continue to monitor DVT prophylaxis has history of acute pe/dvt last year INR still up, hold coumadin, On SQ heparin Full Code Total 53 minutes spent in review of records, history and care planning and care coordination for this patient. Admission and Anticipated Discharge Date Admission Date: October 02, 2024 Subjective Chart, data and 24-hour vital signs reviewed. Patient is seen at bedside in the PCU. Patient admitted for sepsis with septic shock secondary to infected ureteral stone. Patient also developed SOFÍA. She is tolerating p.o. She has a Cruz intact. Her urinary output has improved there is improvement in her renal function/creatinine. Her white count remains markedly elevated but improved. She is on IV ceftriaxone. She denies chest pain. She still feels very weak. She remains on O2 via nasal cannula. She denies nausea. She does not have a headache or visual disturbance. Her LFTs are trending up. She has no right upper quadrant pain. INR still high. Coumadin on hold Review of Systems Review of Systems: Constitutional-she feels very weak, appetite improving ENT- no sinus drainage; no pharyngitis Pulmonary- no cough, no wheezing, no shortness of breath Cardiac- no chest pain, no palpitations, no orthopnea, GI- no nausea, no vomiting, no diarrhea, no melena, no hematochezia -Cruz catheter in draining blood-tinged urine Musculoskeletal- no arthralgias, no myalgias, no flank pain Derm- no rashes, no new skin lesions, Neuro- no headaches, no focal neurologic symptoms Psych- no anxiety, no depression Physical Exam Physical Exam: General- adult female seen supine at bedside in the PCU. She appears ill and pale Head- atraumatic Eyes- PERRL, EOMI, anicteric ENT- oropharynx clear Neck- supple, no JVD, no adenopathy, no thyromegaly; Lungs- clear to auscultation and percussion Heart- regular rhythm; no murmur, no gallop, no rub appreciated Abdomen- normal bowel sounds, soft, nontender on my exam, no masses or hepatosplenomegaly Extremities- 1 plus pretibial edema, no calf tenderness; Neuro- alert, oriented x 3; PERRL, EOMI; moves all extremities Skin- warm & dry Results & Data Results & Data Vital Signs (Past 12 Hours) Vital Signs Temp Pulse Pulse Resp BP Pulse Ox O2 Del Method 10/05/24 11:49 36.2 C L 73 18 124/73 95 Room Air 10/05/24 09:31 68 10/05/24 09:09 Room Air 10/05/24 07:41 36.3 C L 69 18 104/56 L 95 Room Air 10/05/24 04:24 36.7 C 68 18 106/69 95 Room Air Laboratory Results Short CBC 10/05/24 Range/Units 05:33 WBC 29.07 H (4.8-10.8) K/ul Hgb 10.2 L (12.0-16.0) g/dl Hct 30.9 L (37.0-47.0) % Plt Count 168 (130-400) K/uL BMP 10/05/24 05:33 Sodium 140 Potassium 3.6 Chloride 108 H Carbon Dioxide 24 BUN 55 H Creatinine 1.82 H D Glucose 81 Calcium 8.3 L Liver Function 10/05/24 Range/Units 05:33 Total Bilirubin 0.7 (0.2-1.0) mg/dl Direct Bilirubin 0.2 (0-0.2) mg/dl AST 104 H (13-39) U/L ALT 77 H (7-52) U/L Alkaline Phosphatase 384 H D (34-104) U/L Albumin 2.5 L (3.4-5.0) gm/dl Diagnostic Findings Laboratory Results WBC 29.07 K/ul (4.8-10.8) H 10/05/24 05:33 RBC 3.39 M/uL (4.20-5.40) L 10/05/24 05:33 Hgb 10.2 g/dl (12.0-16.0) L 10/05/24 05:33 Hct 30.9 % (37.0-47.0) L 10/05/24 05:33 MCV 91.2 fL (80.0-100.0) 10/05/24 05:33 MCH 30.1 pg (25.0-34.0) 10/05/24 05:33 MCHC 33.0 g/dL (32.0-36.0) 10/05/24 05:33 RDW Std Deviation 46.5 fL (36.4-46.3) H 10/05/24 05:33 RDW Coeff of [place] 13.8 % (11.5-14.5) 10/05/24 05:33 Plt Count 168 K/uL (130-400) 10/05/24 05:33 MPV 10.9 fL (9.4-12.4) 10/05/24 05:33 Immature Gran % (Auto) 4.9 % 10/03/24 04:01 Neut % (Auto) 88.0 % 10/03/24 04:01 Lymph % (Auto) 2.2 % 10/03/24 04:01 [place]one % (Auto) 4.6 % 10/03/24 04:01 Eos % (Auto) 0.0 % 10/03/24 04:01 Baso % (Auto) 0.3 % 10/03/24 04:01 Neut # (Auto) 40.63 K/uL (1.40-6.50) H 10/03/24 04:01 Lymph # (Auto) 1.02 K/uL (1.20-3.40) L 10/03/24 04:01 [place]ccone # (Auto) 2.11 K/uL (0.11-0.59) H 10/03/24 04:01 Eos # (Auto) 0.00 K/uL (0.00-0.50) 10/03/24 04:01 Baso # (Auto) 0.13 K/uL (0.00-0.20) 10/03/24 04:01 Immature Gran # (Auto) 2.26 K/uL (0.01-0.20) H 10/03/24 04:01 Toxic Vacuolation 1+ 10/03/24 04:01 Dohle Bodies 1+ 10/03/24 04:01 Polychromasia 1+ 10/03/24 04:01 Echinocytes 1+ 10/02/24 09:53 PT 39.0 Seconds (9.0-12.0) H 10/05/24 05:33 INR 4.1 (0.9-1.1) H 10/05/24 05:33 APTT 34 Seconds (21-31) H 10/02/24 09:53 PTT Ratio 1.3 10/02/24 09:53 Sodium 140 mmol/L (136-145) 10/05/24 05:33 Potassium 3.6 mmol/L (3.5-5.1) 10/05/24 05:33 Chloride 108 mmol/L (98-107) H 10/05/24 05:33 Carbon Dioxide 24 mmol/L (21-32) 10/05/24 05:33 Anion Gap 8 (3-11) 10/05/24 05:33 BUN 55 mg/dl (6-23) H 10/05/24 05:33 Creatinine 1.82 mg/dl (0.6-1.2) H D 10/05/24 05:33 Est Cr Clr Drug Dosing 29.9 ml/min 10/05/24 05:33 eGFR 29.54 10/05/24 05:33 BUN/Creatinine Ratio 30.2 (10-20) H 10/05/24 05:33 Glucose 81 mg/dl (70-99(Fasting)) 10/05/24 05:33 POC Glucose 107 mg/dl (70-99) H 10/05/24 11:26 POC Glucose (other) 106 mg/dl (70-99) H 10/03/24 18:36 Estimat Average Glucose 128 mg/dl 10/03/24 04:01 Hemoglobin A1c 6.1 % (4.5-5.6) H 10/03/24 04:01 Lactate 2.5 mmol/L (0.4-2.0) H* 10/03/24 08:10 Calcium 8.3 mg/dl (8.6-10.3) L 10/05/24 05:33 Phosphorus 5.2 mg/dl (2.5-4.9) H 10/04/24 04:38 Magnesium 2.8 mg/dl (1.7-2.4) H 10/05/24 05:33 Total Bilirubin 0.7 mg/dl (0.2-1.0) 10/05/24 05:33 Direct Bilirubin 0.2 mg/dl (0-0.2) 10/05/24 05:33 AST 104 U/L (13-39) H 10/05/24 05:33 ALT 77 U/L (7-52) H 10/05/24 05:33 Alkaline Phosphatase 384 U/L (34-104) H D 10/05/24 05:33 Troponin I High Sens 55.8 pg/ml (0-14) H* D 10/02/24 11:38 B-Natriuretic Peptide 216 pg/ml (0-100) H 10/02/24 10:26 Total Protein 5.9 gm/dl (6.0-8.3) L 10/05/24 05:33 Albumin 2.5 gm/dl (3.4-5.0) L 10/05/24 05:33 Globulin 3.7 gm/dl (2.5-4.0) 10/02/24 09:53 Albumin/Globulin Ratio 0.8 (0.9-2) L 10/02/24 09:53 Procalcitonin 61.90 ng/ml (0-0.5) H 10/02/24 09:53 TSH 2.077 uIu/ml (0.300-4.500) 10/02/24 09:53 Random Cortisol 57.96 mcg/dl 10/02/24 11:38 Urine Color Dark Yellow 10/02/24 10:11 Urine Appearance Cloudy (Clear) A 10/02/24 10:11 Urine pH 5.5 (4.5-7.5) 10/02/24 10:11 Ur Specific [place] 1.015 (1.000-1.030) 10/02/24 10:11 Urine Protein 2+ (Negative) H 10/02/24 10:11 Urine Glucose (UA) Negative (Negative) 10/02/24 10:11 Urine Ketones Negative (Negative) 10/02/24 10:11 Urine Blood 3+ (Negative) H 10/02/24 10:11 Urine Nitrite Positive (Negative) A 10/02/24 10:11 Urine Bilirubin Negative (Negative) 10/02/24 10:11 Urine Urobilinogen Negative (Negative) 10/02/24 10:11 Ur Leukocyte Esterase 2+ (Negative) H 10/02/24 10:11 Urine WBC (Auto) >50 /hpf (0-5) H 10/02/24 10:11 Urine RBC (Auto) 6-10 /hpf (0-2) H 10/02/24 10:11 U Hyaline Cast (Auto) 11-20 /lpf (0-2) H 10/02/24 10:11 U Epithel Cells (Auto) 0-2 /hpf (0-2) 10/02/24 10:11 Urine Bacteria (Auto) 4+ (None Seen) H 10/02/24 10:11 Urine Osmolality 278 mOsm/kg (500-800) L 10/02/24 Unknown Ur Random Creatinine 183.7 mg/dl 10/02/24 Unknown Ur Random Sodium 70 mmol/L 10/02/24 Unknown Ur Random Potassium 25.4 mmol/L 10/02/24 Unknown Ur Random Chloride 62 mmol/L 10/02/24 Unknown Urine Comment 10/02/24 10:11 Nasal Screen MRSA (PCR) Negative (Negative) 10/02/24 13:35 Impressions Abdomen/Pelvis CT 10/02/24 10:38 CT OF THE ABDOMEN AND PELVIS WITHOUT CONTRAST CLINICAL HISTORY: Lower abdominal pain, chronic renal failure, diarrhea, hypotension. COMPARISON STUDY: CT of the abdomen and pelvis October 10, 2008. Renal ultrasound September 26, 2023. TECHNIQUE: Axial images of the abdomen and pelvis were obtained without IV contrast. Images were reviewed in the axial, sagittal, and coronal planes. Automated exposure control was utilized for the study. A dose lowering technique was utilized adhering to the principles of ALARA. FINDINGS: Prosthetic aortic valve is incidentally noted. The heart is mildly enlarged. There is no pericardial effusion. A 5 mm right middle lobe nodule is unchanged and CT of October 10, 2008. This is benign given stability. Mild groundglass opacities with mosaic attenuation within the lung bases are noted. A 7 mm x 4 mm distal left ureteral calculus results in mild left hydroureteronephrosis. Images of the pelvis are degraded by streak artifact from hip arthroplasties. There is urothelial thickening of the left collecting system and left ureter with moderate left perinephric stranding. There is no right hydronephrosis. There is a 3 mm left lower pole renal calculus. No right-sided urinary calculi are present. Evaluation of the remainder of the abdomen and pelvis is suboptimal on this unenhanced examination. Liver, spleen, adrenal glands and pancreas are unremarkable. Is no evidence for a bowel obstruction. Gas and gas within the bladder is likely from recent Cruz placement. The Cruz balloon is obscured by streak artifact from hip arthroplasties. IMPRESSION: 1. 7 mm x 4 mm distal left ureteral calculus which results in mild left hydroureteronephrosis. Urothelial thickening of the left collecting system and left ureter with perinephric stranding is likely related to the obstruction however a superimposed infectious process could appear similar. 2. 3 mm left lower pole renal calculus. No right-sided urinary calculi. 3. Streak artifact from bilateral hip arthroplasties obscures the pelvis. Gas within the bladder likely from Cruz placement. ACT 112: Negative or not required by law. Electronically signed by: Jose Raimrez M.D. 10/02/2024 11:16 AM Retrograde Pyelogram 10/02/24 14:00 FL retrograde includes kub CLINICAL HISTORY: LT SIDE RETROGRADE COMPARISON STUDY: None FLUOROSCOPY TIME: 5 seconds FLUOROSCOPY IMAGES: 3 EXPOSURE DOSE: 2 mGy FINDINGS: Fluoroscopy was provided for urologic procedure. IMPRESSION: Intraoperative fluoroscopy. ACT 112: Negative or not required by law. Electronically signed by: Jesús Doss M.D. 10/02/2024 3:34 PM Chest X-Ray 10/02/24 14:08 XR chest 1V portable CLINICAL HISTORY: central line placement COMPARISON STUDY: 10/02/2024 FINDINGS: Right central line tip is just above the cavoatrial junction. There is no pneumothorax. No consolidation or pleural effusion. IMPRESSION: No pneumothorax. ACT 112: Negative or not required by law. Electronically signed by: Jesús Doss M.D. 10/02/2024 2:35 PM Renal Ultrasound 10/04/24 10:36 RENAL ULTRASOUND HISTORY: Rule out obstruction. COMPARISON: CT of 10/02/2024 and ultrasound of 09/26/2023 FINDINGS: Right kidney measures 10 x 4 cm. Left kidney measures 11 x 5 cm. There is no hydronephrosis bilaterally. No renal calculi seen. There is normal Doppler flow to both kidneys. Urinary bladder is empty and not visualized. IMPRESSION: No hydronephrosis. ACT 112: Negative or not required by law. Electronically signed by: Jesús Doss M.D. 10/04/2024 11:[address] 10/04/24 13:27 CT head without contrast History: Slurred speech Comparison: None Technique: Using multidetector thin collimation helical acquisition technique, axial, coronal and sagittal CT images from the skull base to the vertex were obtained without intravenous contrast. Dose reduction techniques were achieved by using automatic exposure control and/or adjustment of mA and/or kV according to patient size and/or use of iterative reconstruction technique. Findings: No intracranial hemorrhage, mass-effect, or midline shift. The ventricles are proportionate to the cerebral sulci. The benavidez to white matter differentiation of the cerebral hemispheres is preserved. The basal cisterns are patent. Bilateral maxillary sinus mucosal thickening. Mastoid air cells are clear. Impression: No acute intracranial pathology. Electronically signed by Emanuel Billingsley 10-04-2024 2:10 PM Liver Ultrasound 10/05/24 07:39 US liver CLINICAL HISTORY: rising lfts COMPARISON STUDY: CT of 10/02/2024 FINDINGS: Pancreatic tail is obscured by bowel gas. Visualized pancreatic body is grossly unremarkable. There is normal direction of flow in the portal vein. Gallbladder is unremarkable with no gallstones or gallbladder wall thickening. No pericholecystic fluid or ascites. Common bile duct has normal diameter of 5 mm. Right kidney shows no hydronephrosis. Liver is unremarkable measuring 15 cm. IMPRESSION: No acute findings. No gallstones or evidence of acute cholecystitis. ACT 112: Negative or not required by law. Electronically signed by: Jesús Doss M.D. 10/05/2024 10:06 AM
[2024-10-05] MEDS ORDERED: SODIUM CHLORIDE 0.65% NA SOLN 45 ML (OCEAN) PRN (16:45)
[2024-10-05] MEDS: OXYMETAZOLINE 0.05% 30 ML BTL NAE ONE (19:13)
[2024-10-06] MEDS: OXYMETAZOLINE 0.05% 30 ML BTL PRN (01:07)
[2024-10-06 06:52] LABS: Hematocrit (blood only) 31.6 % (37.0-47.0); Hemoglobin 10.4 g/dl (12.0-16.0); Mean Corpuscular Hemoglobin 30.0 pg (25.0-34.0); Mean Corpuscular Volume 91.1 fL (80.0-100.0); Platelet Count 181 K/uL (130-400); RDW Standard Deviation 47.4 fL (36.4-46.3); Red Blood Count 3.47 M/uL (4.20-5.40); White Blood Count 19.92 K/ul (4.8-10.8)
[2024-10-06 07:09] LABS: Alanine Aminotransferase 109.0 U/L (7-52); Alkaline Phosphatase 414.0 U/L (34-104); Anion Gap 4.0 (3-11); Bilirubin,Total 0.5 mg/dl (0.2-1.0); Blood Urea Nitrogen 44.0 mg/dl (6-23); Calcium 8.3 mg/dl (8.6-10.3); Carbon Dioxide 26.0 mmol/L (21-32); Chloride 111.0 mmol/L (98-107); Creatinine Clr Calc Pharmacy 35.1 ml/min; Glucose 107.0 mg/dl (70-99(Fasting)); Magnesium 2.3 mg/dl (1.7-2.4); Potassium 4.0 mmol/L (3.5-5.1); Sodium 141.0 mmol/L (136-145); Total Protein 5.9 gm/dl (6.0-8.3)
[2024-10-06 07:17] LABS: INR 2.8 (0.9-1.1); Prothrombin Time 27.5 Seconds (9.0-12.0)
--- NOTE | 2024-10-06 15:51 | Hospitalist Progress Note ---
Date of Service October 06, 2024 Assessment & Plan (1) Septic shock: (2) Left ureteral stone: (3) Acute renal failure: Plan: Ms. Reyes is a 69-year-old female with history of status post TAVR, diabetes type 2, hypertension, PE/DVT on Coumadin is admitted with abdominal pain and weakness x 4 days resulting in sepsis with shock secondary to urinary source. Patient is now s/p left ureteral stent placement 10/02 Patient's course complicated by supratherapeutic INR with epistaxis and hematuria. INR now 2.8. Plan to removed rhinorocket tomorrow If still epistaxis, will consult ENT #Septic shock 2/2 complicated UTI, pyelonephritis #Left urolithiasis s/p left urteral stent History of Klebsiella UTI based on outpatient records Urine culture showing E. coli pansensitive Blood cultures obtained at the ER: No growth to date Continue IV CTX, plan for 14 day course, will switch to po cipro for 10 day course MRSA swab negative Urology: will coordinate OP follow up #Hematuria iso stent placement and abel, as well as supratherapeutic inr improving, still tinged red but not clots or need for CBI at this time CTM #Acute hypoxic respiratory failure 2D echo 09/23/2023: EF 60-65%, RV normal in size and function, mild MR, mild TR, grade 1 diastolic dysfunction CXR from 10/02 with signs of edema, BNP elevated on this admission, likely volume overload given resuscitation iso sepsis will start IV lasix 10mg x 1 wean o2 as able #SOFÍA, prerenal 2/2 septic shock, also possible obstructive component baselin 1.2, downtrending from peak of 2.36 Continue to advance diet gentle diuresis for respiratory status, encourage po #Supratherapeutic INR #Prior DVT/PE INR peaked at 5.0 iso sepsis Continue SC heparin Resume coumadin tomorrow afternoon #HTN #Prior Aortic stenosis s/p tavr 2023 continue nadolol 20mg qpm continue enalapril (replace home benazepril) holding home amlodipine #HLD continue statin #DM 2 Insulin sliding scale Pharmacy glycemic consult #Elevated troponin, demand ischemia iso shock Demand ischemia Trop 81.9-->55.8 EKG reviewed #Prior bilateral hip replacement #Weakness PT/OT pending Referral to [facility] pending #Prior breast cancer On letrozole #LFT elevation Right upper quadrant ultrasound unremarkable. Suspect shock liver. Continue to monitor DVT prophylaxis has history of acute pe/dvt last year INR improved, likely transition to coumadin, On SQ heparin Full Code Total 55 minutes spent in review of records, history and care planning and care coordination for this patient. Admission and Anticipated Discharge Date Admission Date: October 02, 2024 Subjective Evaluated at bedside Overnight rhinorocket placed in Right nare for epistaxis some drainage from nare, minimal from left improved with afrin Reports minimal abdominal pain Encouraged to ambulate Denies any other acute concerns outside of frustration from epistaxis Physical Exam Constitutional: WD/WN, vitals as above ENMT: rhinorocket in place in right nare, diluted blood/saline soaked with some drainage, left nare with no dried blood in nare Respiratory: normal respiratory effort, lungs clear to auscultation Cardiovascular: RRR, no murmur, no edema Results & Data Results & Data Vital Signs (Past 12 Hours) Vital Signs Temp Pulse Pulse Resp BP BP Pulse Ox 10/06/24 14:59 10/06/24 11:18 36.5 C 74 22 112/72 96 10/06/24 08:00 65 10/06/24 07:26 10/06/24 04:20 36.6 C 71 18 167/70 H 95 Pulse Ox O2 Del Method O2 Flow Rate O2 Flow Rate 10/06/24 14:59 92 2 10/06/24 11:18 Oxymask 2 10/06/24 08:00 10/06/24 07:26 Oxymask 2 10/06/24 04:20 Oxymask 2 Laboratory Results Short CBC 10/06/24 Range/Units 06:33 WBC 19.92 H (4.8-10.8) K/ul Hgb 10.4 L (12.0-16.0) g/dl Hct 31.6 L (37.0-47.0) % Plt Count 181 (130-400) K/uL BMP 10/06/24 06:33 Sodium 141 Potassium 4.0 Chloride 111 H Carbon Dioxide 26 BUN 44 H Creatinine 1.55 H Glucose 107 H Calcium 8.3 L Liver Function 10/06/24 Range/Units 06:33 Total Bilirubin 0.5 (0.2-1.0) mg/dl Direct Bilirubin 0.2 (0-0.2) mg/dl AST 142 H (13-39) U/L ALT 109 H (7-52) U/L Alkaline Phosphatase 414 H (34-104) U/L Albumin 2.4 L (3.4-5.0) gm/dl Medications Administered Home Medications Medication Instructions Recorded Confirmed Last Taken acetaminophen 500 mg tablet 1,000 mg PO Q8 09/22/23 10/02/24 10/02/24 (Tylenol Extra Strength) amitriptyline 75 mg tablet 75 mg PO HS 09/22/23 10/02/24 10/01/24 amoxicillin 500 mg capsule 2,000 mg PO UD 09/22/23 10/02/24 Unknown atorvastatin 80 mg tablet 80 mg PO HS 09/22/23 10/02/24 10/01/24 cyanocobalamin (vitamin B-12) 1,000 mcg PO QAM 09/22/23 10/02/24 10/02/24 1,000 mcg tablet cyclobenzaprine 10 mg tablet 10 mg PO TID PRN Muscle Spasm 09/22/23 10/02/24 Unknown famotidine 20 mg tablet 20 mg PO QAM 09/22/23 10/02/24 10/02/24 letrozole 2.5 mg tablet 2.5 mg PO QAM 09/22/23 10/02/24 10/02/24 metformin 500 mg tablet,extended 500 mg PO BID 09/22/23 10/02/24 10/02/24 release 24 hr nadolol 20 mg tablet 20 mg PO 09/22/23 10/02/24 10/01/24 riboflavin (vitamin B2) 100 mg 200 mg PO Q12 09/22/23 10/02/24 10/02/24 tablet amlodipine 5 mg tablet 5 mg PO DAILY 08/19/24 10/02/24 10/02/24 benazepril 20 mg tablet 20 mg PO DAILY 08/19/24 10/02/24 10/02/24 ezetimibe 10 mg tablet 10 mg PO DAILY 08/19/24 10/02/24 10/02/24 ferrous sulfate 325 mg (65 mg 325 mg PO DAILY 08/19/24 10/02/24 10/01/24 iron) tablet (Feosol) [id number] 250 mg-dha 90 1 cap PO DAILY 08/19/24 10/02/24 10/02/24 mg-epa 160 [id number] capsule (Ocuvite Adult 50 Plus) triamcinolone acetonide 0.1 % 1 applic topical DAILY PRN flare 08/19/24 10/02/24 Unknown topical cream warfarin 3 mg tablet 1.5 mg PO [id number] 10/02/24 10/02/24 09/29/24 warfarin 3 mg tablet 3 mg PO [id number] 10/02/24 10/02/24 10/01/24 Active Medications Generic Name Dose Route Start Last Admin Trade Name Freq PRN Reason Stop Dose Admin Atorvastatin Calcium 80 mg 10/04/24 21:00 10/05/24 20:41 Atorvastatin 40 Mg Tab PO 11/03/24 20:59 80 mg HS DEIRDRE Administration Cyanocobalamin 1,000 mcg 10/05/24 09:00 10/06/24 08:02 Cyanocobalamin (B-12) 500 Mcg Tablet PO 11/04/24 08:59 1,000 mcg QAM DEIRDRE Administration Ezetimibe 10 mg 10/05/24 09:00 10/06/24 08:02 Ezetimibe 10 Mg Tab PO 11/04/24 08:59 10 mg DAILY DEIRDRE Administration Enalapril Maleate 10 mg 10/05/24 09:00 10/06/24 08:02 Enalapril Maleate 10 Mg Tab PO 11/04/24 08:59 10 mg DAILY DEIRDRE Administration Ferrous Sulfate 325 mg 10/03/24 09:00 10/06/24 08:02 Ferrous Sulfate 325 Mg Tab PO 11/02/24 08:59 325 mg DAILY DEIRDRE Administration Heparin Sodium (Beef Lung) 5 ml 10/04/24 10:12 10/04/24 10:22 Heparin 10 Unit/Ml 5 Ml Flush FLUSH 11/03/24 10:11 10 ml PRN PRN Administration Flush Famotidine 20 mg in 5 mls @ 2.5 mls/min 10/04/24 09:00 10/06/24 08:03 Pepcid 20mg Iv Push IV 11/03/24 08:59 2.5 mls/min Q24H DEIRDRE Administration Ceftriaxone Sodium 2,000 mg in 50 mls @ 100 mls/hr 10/04/24 21:00 10/05/24 21:14 Rocephin IV 10/13/24 08:59 Infused Q24H DEIRDRE Infusion Insulin Aspart 0 units 10/04/24 08:15 10/06/24 12:09 Insulin Aspart Per Unit Charge SC 11/03/24 08:14 Not Given ACHS DEIRDRE Letrozole 2.5 mg 10/03/24 09:00 10/06/24 08:02 Letrozole 2.5 Mg Tab PO 11/02/24 08:59 2.5 mg QAM DEIRDRE Administration Miscellaneous 15 - 30 gm 10/02/24 12:43 10/04/24 20:33 Carbohydrates For Hypoglycemia PO 11/01/24 12:42 15 gm UD PRN Administration Hypoglycemia Protocol Nadolol 20 mg 10/04/24 21:00 10/05/24 20:41 Nadolol 40 Mg Tab PO 11/03/24 20:59 20 mg HS DEIRDRE Administration Oxymetazoline HCl 1 sprays 10/05/24 18:49 10/06/24 14:16 Oxymetazoline 0.05% 30 Ml Btl NA 11/04/24 18:48 1 sprays Q2H PRN Administration Bleeding
[2024-10-06] MEDS ORDERED: WARFARIN SOD 3 MG TAB PO SCH (16:00)
[2024-10-06] MEDS: POTASSIUM CHLORIDE CRTAB 20 MEQ TABCR PO STA (16:44)
[2024-10-06] MEDS: FUROSEMIDE INJ 20 MG/2 ML VIAL IV ONE (16:44)
[2024-10-07 07:22] LABS: Hematocrit (blood only) 35.2 % (37.0-47.0); Hemoglobin 11.2 g/dl (12.0-16.0); Mean Corpuscular Hemoglobin 29.0 pg (25.0-34.0); Mean Corpuscular Volume 91.2 fL (80.0-100.0); Platelet Count 215 K/uL (130-400); RDW Standard Deviation 47.9 fL (36.4-46.3); Red Blood Count 3.86 M/uL (4.20-5.40); White Blood Count 15.81 K/ul (4.8-10.8)
[2024-10-07 09:00] LABS: INR 2.1 (0.9-1.1); Prothrombin Time 20.9 Seconds (9.0-12.0)
[2024-10-07 09:13] LABS: Anion Gap 6.0 (3-11); Bilirubin,Total 0.5 mg/dl (0.2-1.0); Calcium 8.5 mg/dl (8.6-10.3); Carbon Dioxide 27.0 mmol/L (21-32); Chloride 109.0 mmol/L (98-107); Magnesium 1.9 mg/dl (1.7-2.4); Potassium 4.0 mmol/L (3.5-5.1); Sodium 142.0 mmol/L (136-145)
[2024-10-07 09:20] LABS: Alanine Aminotransferase 107.0 U/L (7-52); Albumin Globulin Ratio 0.7 (0.9-2); Alkaline Phosphatase 482.0 U/L (34-104); Blood Urea Nitrogen 38.0 mg/dl (6-23); Creatinine Clr Calc Pharmacy 40.5 ml/min; Globulin 3.9 gm/dl (2.5-4.0); Glucose 97.0 mg/dl (70-99(Fasting)); Total Protein 6.5 gm/dl (6.0-8.3)
--- NOTE | 2024-10-07 11:01 | XRay Report ---
XR chest 1V portable CLINICAL HISTORY: hypoxia COMPARISON STUDY: 10/02/2024 FINDINGS: Stable cardiac valve repair. Stable mild cardiomegaly with mild pulmonary vascular congesti on. Inspiration is shallow. Stable mild diffuse pulmonary interstitial prominence. No lobar consolida tion or pleural effusion. No pneumothorax. IMPRESSION: Stable exam. ACT 112: Negative or not required by law. Electronically signed by: Jesús Doss M.D. 10/07/2024 10:59 AM
[2024-10-07] MEDS: WARFARIN SOD 2 MG TAB PO SCH (16:22)
--- NOTE | 2024-10-07 17:45 | Hospitalist Progress Note ---
Date of Service October 07, 2024 Assessment & Plan (1) Septic shock: (2) Left ureteral stone: (3) Acute renal failure: Plan: Ms. Reyes is a 69-year-old female with history of status post TAVR, diabetes type 2, hypertension, PE/DVT on Coumadin is admitted with abdominal pain and weakness x 4 days resulting in sepsis with shock secondary to urinary source. Patient is now s/p left ureteral stent placement 10/02 Patient's course complicated by supratherapeutic INR with epistaxis and hematuria. INR 2.1, resume warfarin Rhinorocket dislodged, no further bleeding. Urine cleared. CXR with vascular congestion noted as likely contributor to continued o2 need, will trial lasix x1 again, gentle diuresis iso recovering renal function #Septic shock 2/2 complicated UTI, pyelonephritis #Left urolithiasis s/p left ureteral stent History of Klebsiella UTI based on outpatient records Urine culture showing E. coli pansensitive Blood cultures obtained at the ER: No growth to date Continue IV CTX, plan for 14 day course, eot 10/18 MRSA swab negative Urology: will coordinate OP follow up #Hematuria iso stent placement and abel, as well as supratherapeutic inr improving, still tinged red but not clots or need for CBI at this time improved,discontinue abel #Acute hypoxic respiratory failure 2D echo 09/23/2023: EF 60-65%, RV normal in size and function, mild MR, mild TR, grade 1 diastolic dysfunction CXR from 10/02 with signs of edema, BNP elevated on this admission, likely volume overload given resuscitation iso sepsis s/p IV lasix x 1, will repeat again today wean o2 as able #SOFÍA, prerenal 2/2 septic shock, also possible obstructive component baselin 1.2, downtrending from peak of 2.36 Continue to advance diet gentle diuresis for respiratory status, encourage po #Supratherapeutic INR #Prior DVT/PE INR peaked at 5.0 iso sepsis Resume coumadin 2mg this evening INR in am #HTN #Prior Aortic stenosis s/p tavr 2023 continue nadolol 20mg qpm continue enalapril (replace home benazepril) holding home amlodipine #HLD hold statin #DM 2 Insulin sliding scale Pharmacy glycemic consult #Elevated troponin, demand ischemia iso shock Demand ischemia Trop 81.9-->55.8 EKG reviewed #Prior bilateral hip replacement #Weakness PT/OT pending Referral to [facility] pending #Prior breast cancer On letrozole #LFT elevation *improving Right upper quadrant ultrasound unremarkable. Suspect shock liver. Continue to monitor DVT prophylaxis has history of acute pe/dvt last year INR improved, start coumadin anticipate medically stable for snf tomorrow Full Code Total 55 minutes spent in review of records, history and care planning and care coordination for this patient. Admission and Anticipated Discharge Date Admission Date: October 02, 2024 Subjective NAEO reports continued subjective improvement denies any other acute concerns--no fevers, chills, chest pain reports intermittent flank pain rhinorocket dislodged overnight with resolution of nose bleed Physical Exam Constitutional: WD/WN, vitals as above Respiratory: diminshed in bases Cardiovascular: RRR, no murmur, no edema Gastrointestinal (Abdomen): normal bowel sounds, soft, nontender, no hepatosplenomegaly abel with more clear urine Results & Data Results & Data Vital Signs (Past 12 Hours) Vital Signs Temp Pulse Pulse Resp BP BP Pulse Ox 10/07/24 16:00 36.9 C 74 18 132/79 97 10/07/24 13:00 74 10/07/24 08:37 36.8 C 81 12 120/62 97 10/07/24 08:00 63 10/07/24 07:42 O2 Del Method O2 Flow Rate 10/07/24 16:00 Oxymask 2 10/07/24 13:00 10/07/24 08:37 Oxymask 2 10/07/24 08:00 10/07/24 07:42 Oxymask 2 Laboratory Results Short CBC 10/07/24 Range/Units 05:27 WBC 15.81 H (4.8-10.8) K/ul Hgb 11.2 L (12.0-16.0) g/dl Hct 35.2 L (37.0-47.0) % Plt Count 215 (130-400) K/uL BMP 10/07/24 05:27 Sodium 142 Potassium 4.0 Chloride 109 H Carbon Dioxide 27 BUN 38 H Creatinine 1.33 H Glucose 97 Calcium 8.5 L Liver Function 10/07/24 Range/Units 05:27 Total Bilirubin 0.5 (0.2-1.0) mg/dl AST 118 H (13-39) U/L ALT 107 H (7-52) U/L Alkaline Phosphatase 482 H (34-104) U/L Albumin 2.6 L (3.4-5.0) gm/dl Medications Administered Home Medications Medication Instructions Recorded Confirmed Last Taken acetaminophen 500 mg tablet 1,000 mg PO Q8 09/22/23 10/02/24 10/02/24 (Tylenol Extra Strength) amitriptyline 75 mg tablet 75 mg PO HS 09/22/23 10/02/24 10/01/24 amoxicillin 500 mg capsule 2,000 mg PO UD 09/22/23 10/02/24 Unknown atorvastatin 80 mg tablet 80 mg PO HS 09/22/23 10/02/24 10/01/24 cyanocobalamin (vitamin B-12) 1,000 mcg PO QAM 09/22/23 10/02/24 10/02/24 1,000 mcg tablet cyclobenzaprine 10 mg tablet 10 mg PO TID PRN Muscle Spasm 09/22/23 10/02/24 Unknown famotidine 20 mg tablet 20 mg PO QAM 09/22/23 10/02/24 10/02/24 letrozole 2.5 mg tablet 2.5 mg PO QAM 09/22/23 10/02/24 10/02/24 metformin 500 mg tablet,extended 500 mg PO BID 09/22/23 10/02/24 10/02/24 release 24 hr nadolol 20 mg tablet 20 mg PO 09/22/23 10/02/24 10/01/24 riboflavin (vitamin B2) 100 mg 200 mg PO Q12 09/22/23 10/02/24 10/02/24 tablet amlodipine 5 mg tablet 5 mg PO DAILY 08/19/24 10/02/24 10/02/24 benazepril 20 mg tablet 20 mg PO DAILY 08/19/24 10/02/24 10/02/24 ezetimibe 10 mg tablet 10 mg PO DAILY 08/19/24 10/02/24 10/02/24 ferrous sulfate 325 mg (65 mg 325 mg PO DAILY 08/19/24 10/02/24 10/01/24 iron) tablet (Feosol) [id number] 250 mg-dha 90 1 cap PO DAILY 08/19/24 10/02/24 10/02/24 mg-epa 160 [id number] capsule (Ocuvite Adult 50 Plus) triamcinolone acetonide 0.1 % 1 applic topical DAILY PRN flare 08/19/24 10/02/24 Unknown topical cream warfarin 3 mg tablet 1.5 mg PO 5XWK 10/02/24 10/02/24 09/29/24 warfarin 3 mg tablet 3 mg PO 2XWK 10/02/24 10/02/24 10/01/24 Active Medications Generic Name Dose Route Start Last Admin Trade Name Freq PRN Reason Stop Dose Admin Atorvastatin Calcium 80 mg 10/04/24 21:00 10/06/24 21:28 Atorvastatin 40 Mg Tab PO 11/03/24 20:59 80 mg HS DEIRDRE Administration Cyanocobalamin 1,000 mcg 10/05/24 09:00 10/07/24 08:19 Cyanocobalamin (B-12) 500 Mcg Tablet PO 11/04/24 08:59 1,000 mcg QAM DEIRDRE Administration Ezetimibe 10 mg 10/05/24 09:00 10/07/24 08:20 Ezetimibe 10 Mg Tab PO 11/04/24 08:59 10 mg DAILY DEIRDRE Administration Enalapril Maleate 10 mg 10/05/24 09:00 10/07/24 08:20 Enalapril Maleate 10 Mg Tab PO 11/04/24 08:59 10 mg DAILY DEIRDRE Administration Ferrous Sulfate 325 mg 10/03/24 09:00 10/07/24 08:19 Ferrous Sulfate 325 Mg Tab PO 11/02/24 08:59 325 mg DAILY DEIRDRE Administration Heparin Sodium (Beef Lung) 5 ml 10/04/24 10:12 10/04/24 10:22 Heparin 10 Unit/Ml 5 Ml Flush FLUSH 11/03/24 10:11 10 ml PRN PRN Administration Flush Famotidine 20 mg in 5 mls @ 2.5 mls/min 10/04/24 09:00 10/07/24 08:23 Pepcid 20mg Iv Push IV 11/03/24 08:59 2.5 mls/min Q24H DEIRDRE Administration Ceftriaxone Sodium 2,000 mg in 50 mls @ 100 mls/hr 10/04/24 21:00 10/06/24 22:37 Rocephin IV 10/13/24 08:59 Infused Q24H DEIRDRE Infusion Insulin Aspart 0 units 10/04/24 08:15 10/07/24 12:17 Insulin Aspart Per Unit Charge SC 11/03/24 08:14 Not Given ACHS DEIRDRE Letrozole 2.5 mg 10/03/24 09:00 10/07/24 08:20 Letrozole 2.5 Mg Tab PO 11/02/24 08:59 2.5 mg QAM DEIRDRE Administration Miscellaneous 15 - 30 gm 10/02/24 12:43 10/04/24 20:33 Carbohydrates For Hypoglycemia PO 11/01/24 12:42 15 gm UD PRN Administration Hypoglycemia Protocol Nadolol 20 mg 10/04/24 21:00 10/06/24 21:27 Nadolol 40 Mg Tab PO 11/03/24 20:59 20 mg HS DEIRDRE Administration Oxymetazoline HCl 1 sprays 10/05/24 18:49 10/06/24 14:16 Oxymetazoline 0.05% 30 Ml Btl NA 11/04/24 18:48 1 sprays Q2H PRN Administration Bleeding Warfarin Sodium 2 mg 10/07/24 16:00 10/07/24 16:22 Warfarin Sod 2 Mg Tab PO 11/06/24 15:59 2 mg DAILY@1600 DEIRDRE Administration
[2024-10-07] MEDS: FUROSEMIDE INJ 20 MG/2 ML VIAL IV ONE (17:58)
[2024-10-07] MEDS: POTASSIUM CHLORIDE CRTAB 20 MEQ TABCR PO STA (17:58)
[2024-10-08 07:52] LABS: INR 1.6 (0.9-1.1); Prothrombin Time 16.9 Seconds (9.0-12.0)
[2024-10-08 08:32] VITALS: RESP 18; O2SAT 96
[2024-10-08 11:50] VITALS: PULSE 70; TEMP 97.9
[2024-10-08 12:06] VITALS: BP 132/79
--- NOTE | 2024-10-08 14:58 | Discharge Summary ---
Date of Service October 08, 2024 Admission HPI Per Admitting Provider 69-year-old female with history of status post TAVR, diabetes type 2, hypertension, PE/DVT on Coumadin, presenting with abdominal pain and weakness x 4 days. History obtained from patient and mostly from her at the bedside as patient was not feeling well. Last Sunday, patient experienced dizziness, room spinning around her, worse with head movements. The next day, patient was still very dizzy and also reported bilateral lower abdominal pain. She also had episodes of dysuria and hematuria, Diarrhea 1-2 episodes per day. Patient still persistently weak since then. She was able to see her primary car e Provider yesterday who ordered a urinalysis, urine culture and CT abdomen and pelvis. this morning, patient's noted that the patient was very weak, barely responding, eyes rolling upward, unable to get up from bed. Upon EMS arrival, patient was noted to be hypotensive and hypoxic. At the ED, blood pressure systolic 90s, O2 sats mid 80s, requiring O2 supplementation. Creatinine 2.5 Lactic acid 4.6 urinalysis (+) UTI CT abdomen pelvis: 1. 7 mm x 4 mm distal left ureteral calculus which results in mild left hydroureteronephrosis. Urothelial thickening of the left collecting system and left ureter with perinephric stranding is likely related to the obstruction however a superimposed infectious process could appear similar. 2. 3 mm left lower pole renal calculus. No right-sided urinary calculi. On exam, patient seen resting in bed, weak, oriented, answers questions appropriately.. She states she feels very tired, Has some mild dyspnea, but no chest pain, headache, dizziness. Admission Exam Per Admitting Provider General- oriented x 3, weak, drowsy, not in distress, speaks in sentences with no effort or accessory muscle use Head- atraumatic Eyes- PERRL, EOMI, anicteric ENT- oropharynx clear Neck- supple, no JVD, no adenopathy, no thyromegaly; carotids +2/2, no bruits appreciated Lungs- clear to auscultation bilaterally, no rales/wheezes Heart- normal rate, regular rhythm; no murmur, no gallop, no rub appreciated Abdomen- normal bowel sounds, nondistended, soft,(+) mild lower abdominal tenderness, no masses or hepatosplenomegaly Extremities- no pretibial edema, no calf tenderness; peripheral pulses intact Neuro- alert, oriented x 3; CN 2-12 grossly intact; motor 5/5 bilaterally;sensation 100% on all extremities; no other gross focal neurologic deficits Skin- warm & dry Principal Diagnosis #Septic shock 2/2 complicated UTI, pyelonephritis #Left urolithiasis s/p left ureteral stent Discharge Exam Constitutional: WD/WN, vitals as above, NAD, sitting up in bed, pleasant, conversing easily Respiratory: normal respiratory effort, lungs clear to auscultation, no wheeze, rales, rhonchi. Normal insp/exp effort, no accessory muscle use Cardiovascular: RRR, no murmur, no edema Vessels: no JVD or carotid bruit Chest: normal inspection of chest Abdomen: normal bowel sounds, soft, nontender, no hepatosplenomegaly Musculoskeletal: no cyanosis or clubbing, extremities motor strength 5/5 Skin: no rashes, warm and dry normal turgor Neurologic: PERRL, EOMI, accommodation nl, no face palsy, no dysarthria CN's II- XI intact bilaterally and moves all extremities Psychiatric: A+Ox3, euthymic affect Discharge Data Allergies Allergy/AdvReac Type Severity Reaction Status Date / Time dichloralphenazone AdvReac RASH Verified 10/02/24 12:22 isometheptene AdvReac RASH Verified 10/02/24 12:22 Consultations 10/02/24 11:34 Consult Urology Stat 10/02/24 11:35 Consult Driver Courier Stat 10/02/24 11:51 ED Decision to Admit Stat 10/02/24 11:54 Consult Urology Stat 10/02/24 13:39 Consult Driver Courier Routine Procedures Performed Operation Date: 10/02/24 15:15 Actual Procedures p Cystoscopy, Left Ureteral Stent Placement(Not Applicable) - Asad Mitchell, Ordered Studies 10/02/24 10:38 CT abd pelvis wo con Stat 10/02/24 13:42 US point of care ultrasound Urgent 10/02/24 14:00 FL retrograde includes kub Routine 10/04/24 10:36 US Kidney Bladder [US renal/blad retro comp] Routine 10/04/24 13:27 CT head/brain wo con Stat 10/05/24 07:39 US liver Urgent Hospital Course (1) Septic shock: (2) Left ureteral stone: (3) Acute renal failure: Ms. Reyes is a 69-year-old female with history of status post TAVR, diabetes type 2, hypertension, PE/DVT on Coumadin is admitted with abdominal pain and weakness x 4 days resulting in sepsis with shock secondary to urinary source. Patient was admitted to ICU for vasopressor support. She underwent left ureteral stent placement on 10/02 by urology. Her urine culture was positive for E. coli for which she was treated with ceftriaxone. During the hospitalization, patient continued to show signs of improvement and was eventually transferred to floors. Her SOFÍA resolved. Patient was discharged on 10 more days of ciprofloxacin to complete the antibiotic course. She was also prescribed 4 days of Lasix 20 mg once a day for volume overload likely secondary to resuscitation. Patient to follow-up with urology for definitive stone management. Please note the above document was generated using voice recognition software. It may contain grammatical, syntax or spelling errors. Any formal questions or concerns about the content, text or information contained within the body of this dictation should be directly addressed to the provider for clarification Total Time Total Time Spent Total Time Spent (In Minutes): 45 Total Time Includes: Examination of the Patient, Discharge Planning, Medication Reconciliation, Communication With Other Providers and Other Discharge Plan Discharge Items Patient Disposition: Transfer Custodial Fac Reason For Visit: SEPTIC SHOCK,UTI,UROLITHIASIS Discharge Diagnosis: #Septic shock 2/2 complicated UTI, pyelonephritis #Left urolithiasis s/p left ureteral stent Condition on Discharge: Critical Activity: Resume your previous activity Non-emergency contact: Primary Care Provider Call non-emergency contact if: you have any medication questions and your symptoms worsen Follow-up/Referrals: Deon Dougherty MD [Primary Care Provider] - Diet: Regular Addtl Attending Provider Instructions: You were admitted to the hospital and underwent stent placement in the left ureter. You are found to have infection in your urine for which you are prescribed ciprofloxacin 500 mg to be taken twice a day for 10 more days. You are also prescribed Lasix 20 mg to be taken once a day for the next 4 days. Hold amlodipine for next 4 days. Please coordinate with urology for follow-up for definitive stone management as outpatient. Repeat PT/INR in 2 days to ensure it is within therapeutic range. Modification of the dosing is needed depending on the PT/INR level. Goal PT/INR level is between 2-3 Pending Studies at Discharge: No Stand-Alone Forms: My [facility] Skilled Items Patient informed of condition?: Yes DNR: No Discharge Level of Care: Skilled Communicable Disease: No Discharge Prognosis: Stable Lines: None Urinary Catheter: No Medications and DC Order Prescriptions: New ciprofloxacin HCl 500 mg tablet 500 mg PO BID 10 Days Qty: 20 0RF furosemide [Lasix] 20 mg tablet 20 mg PO DAILY 4 Days Qty: 4 0RF Continued amoxicillin 500 mg capsule 2,000 mg PO UD Rx Instructions: Take 1 hour prior to dental work warfarin 3 mg tablet 3 mg PO 2XWK Patient Comments: Take 3mg on the evenings of Sun/Tues/Wed/Thurs/Sat Rx Instructions: Take 3mg on the evenings of Sun/Tues/Wed/Thurs/Sat cyclobenzaprine 10 mg Tablet 10 mg PO TID PRN (Reason: Muscle Spasm) Qty: 30 0RF atorvastatin 80 mg tablet 80 mg PO HS Qty: 30 0RF amitriptyline 75 mg tablet 75 mg PO HS Qty: 30 0RF riboflavin (vitamin B2) 100 mg Tablet 200 mg PO Q12 Qty: 30 0RF cyanocobalamin (vitamin B-12) 1,000 mcg tablet 1,000 mcg PO QAM Qty: 30 0RF triamcinolone acetonide 0.1 % cream 1 applic topical DAILY PRN (Reason: flare) 30 Days Qty: 30 0RF warfarin 3 mg Tablet 1.5 mg PO 5XWK Qty: 30 0RF Rx Instructions: Take 1.5mg on the evenings of Sun/Tues/Wed/Thurs/Sat nadolol 20 mg Tablet 20 mg PO HS Qty: 30 0RF famotidine 20 mg tablet 20 mg PO QAM Qty: 30 0RF ferrous sulfate [Feosol] 325 mg (65 mg iron) tablet 325 mg PO DAILY Qty: 30 0RF benazepril 20 mg tablet 20 mg PO DAILY Qty: 30 0RF letrozole 2.5 mg tablet 2.5 mg PO QAM Qty: 30 0RF metformin 500 mg Tablet Extended Release 24 Hr 500 mg PO BID Qty: 60 0RF ezetimibe 10 mg tablet 10 mg PO DAILY Qty: 30 0RF Ocuvite Adult 50 Plus 250 mg (90 mg-160 mg) capsule 1 cap PO DAILY Qty: 30 0RF Changed acetaminophen [Tylenol Extra Strength] 500 mg Tablet 1,000 mg PO Q8 PRN (Reason: pain) Qty: 60 0RF Held amlodipine 5 mg tablet 5 mg PO DAILY Hold Instructions: Resume on 10/13/24. Discharge Orders: Discharge Order (Routine); Ordered 10/08/24 Ordered By: Michael Waddell/Other Patient Handouts: Managing Type 2 Diabetes Admission Data Admit Date/Time: 10/02/24 11:54 Attending Provider: Michael Willis Admit Provider: Simeon Lopes Primary Care Provider: Deon Dougherty Other Providers: Asad Mitchell; Sena Paul; Deon Mcgarry; Simeon Lopes; Emanuel Dove; Zaria Morrell; Janiya Mayfield; Pascual Lilly; Marivel Mack; Tino Paredes; Virginia Ramos; Jose J Ireland; Vincent Yee; [facility] Other Interventions: Discharge Summary Assessment (RN) Last Done: 10/08/24 12:04
== END 2024-10-08 13:28 | DRG 853 ==
LOC: ED 09:36 → 1E 11:54 → SUATTDRO 11:54 → 1E 12:50 → 2S 10-04 17:04